=== PATIENT | female | born 1950 | race Caucasian/White ===

== ENCOUNTER → 2016-07-09 | Outpatient (CLI) | payer MEDICARE, MEDICAID ==
[~2016-07-09] MED LIST: *BLDWK8; *MAMMOGRAM; /ADVA50050; /MOXI40TA; ACET65TA; ACTONEL; ACTONEL PO; ADVAIR100 INHALATION; ALBU17IN2; ALCOHOL TOP; AMARYL2 PO; AMARYL4 PO; AMBIENCR12 PO; AMO500 PO; AMOX500C; AVANDIA4; AVANDIA8; AVELOX PO; BENI20TA11; BENICAR/HCT; CADUET PO; CALCIUM/VITAMIN D; CARDURA; CARDURA PO; CARDURA8 PO; CIPRO500 PO; COLA100C2; CORE12.5; CORE6.25; COREG125 PO; COREG25 PO; COREGCR40 PO; DIET; DIFLUC150; DIOVAN PO; DIOVAN160; DIOVAN160 PO; DIOVAN3/25 PO; DIOVAN80; DOXYCYC100; DOXYCYC100 PO; ERYTHRO500 PO; FAMVIR; FEMARA; FERR325T; GLUCOP1000 PO; HYDROD25 PO; IBUP600T; IBUP80TA PO; INSULANT; INSULIN; JANUVIA100 PO; LAB; LANCMIS; LANTUS SQ; LANTUSCART; LESCOLXL80 PO; LETROZOLE; LEVAQUI500 PO; LEVO25TABR; LIDO5DIS; LIPITOR10 PO; LIPITOR20 PO; LIPITOR40 PO; MAXAIR; MILKSUS; MONISTAT; NEEDLESFIN SQ; NEUR300C; NOVOLOG SQ; NOVOLOGPEN SQ; PROV90AE; PROVENTILI PO; PROZAC20 PO; PULMICORT; SANTYL; SINGULAI10 PO; STARLIX120; SYRIN.5CC SUBQ; SYRINS1CC SUBQ; TESSALO100 PO; TIAZAC PO; VENTOLININ INHALATION; VICO5TAB; VIT D 2000; VITA100T; VITAMIN B 12; VITAMIN D50000 UNT; ZANTAC150; ZETI10TA; ZETIA PO; ZITHROZPAK PO; ZOCO80TA; ZOCOR80 PO; [UNRECOGNIZED DRUG - CODE]; [UNRECOGNIZED DRUG - CODE] -; [UNRECOGNIZED DRUG - CODE] PO; [UNRECOGNIZED DRUG - CODE] PO; [UNRECOGNIZED DRUG - OTHER]; [UNRECOGNIZED DRUG - OTHER]; [UNRECOGNIZED DRUG - OTHER]; [UNRECOGNIZED DRUG - OTHER] -; [UNRECOGNIZED DRUG - OTHER] PO; [UNRECOGNIZED DRUG - OTHER] SC; [UNRECOGNIZED DRUG - REMARK]; [UNRECOGNIZED DRUG - REMARK]; [UNRECOGNIZED DRUG - SUPPLY] -
--- NOTE | 2016-07-09 14:39 | REP ---
WHOLE BODY RADIONUCLIDE BONE SCAN: HISTORY: History breast carcinoma and bone pain. Comparison bone scan is from February 27, 2009. TECHNIQUE: 21.9 mCi technetium 99m MDP is injected and standard whole body bone scan imaging acquired. SCINTIGRAPHIC FINDINGS: There is a normal distribution of skeletal tracer with uptake in bilateral kidneys and in the urinary bladder. There is a focus of increased uptake in the right lateral forefoot at the level of the 5th proximal phalanx or MTP joint. This should be correlated clinically. There is mildly increased uptake in the anterior maxilla bilaterally. This is unchanged and may relate to dental or periodontal disease. IMPRESSION: No evidence to suggest skeletal metastatic disease. Increased uptake in the 5th toe on the right. This is most likely related to trauma or arthropathy. Signed by Darryn Gonzalez MD 07/09/2016 02:42 P
== END ==
LOC: M RAD 10:02
PROVIDERS: ATTEND Internal Medicine Medical Oncology
DX: Z08 Encounter for follow-up examination after completed treatment for malignant neoplasm (principal); M89.9 Disorder of bone, unspecified; Z85.3 Personal history of malignant neoplasm of breast
CPT/HCPCS: 78306; A9503

== ENCOUNTER → 2016-07-22 | Outpatient (CLI) | payer MEDICARE, MEDICAID ==
[2016-07-22 10:25] LABS: ALBUMIN 3.8 GM/DL (3.2-5.2); ALBUMIN/GLOBULIN RATIO 1.09 (1.00-1.93); BILIRUBIN,TOTAL 0.8 MG/DL (0.2-1.0); CALCIUM LEVEL 8.9 MG/DL (8.8-10.2); CREATININE FOR GFR 1.03 MG/DL (0.55-1.02); GLOMERULAR FILTRATION RATE 57.1 (>45); TOTAL PROTEIN 7.3 GM/DL (6.4-8.2)
== END ==
LOC: M LAB 09:24
PROVIDERS: ATTEND Nurse Practitioner Family
DX: E11.65 Type 2 diabetes mellitus with hyperglycemia (principal); E55.9 Vitamin D deficiency, unspecified; E03.9 Hypothyroidism, unspecified; E78.5 Hyperlipidemia, unspecified

== ENCOUNTER → 2016-08-17 | Outpatient (CLI) | payer MEDICARE, MEDICAID ==
[2016-08-17 15:25] LABS: CREATININE FOR GFR 1.24 MG/DL (0.55-1.02); FREE T4 1.38 NG/DL (0.76-1.46); GLOMERULAR FILTRATION RATE 46.1 (>45)
--- NOTE | 2016-08-17 16:40 | REP ---
CERVICAL SPINE, EIGHT VIEWS: HISTORY: Neck pain. The cervical spine is visualized from C1-C7 in the lateral radiographs. There is no acute fracture or subluxation. The C4-5 intervertebral disc is decreased in height consistent with disc degeneration. The neural foramina are patent. IMPRESSION: Degenerative change as described above. Signed by Moses Leong MD 08/17/2016 04:42 P
== END ==
LOC: M LAB 14:30
PROVIDERS: ATTEND Nurse Practitioner Family
DX: E89.0 Postprocedural hypothyroidism (principal); M50.30 Other cervical disc degeneration, unspecified cervical region; E11.65 Type 2 diabetes mellitus with hyperglycemia

== ENCOUNTER 2016-09-20 14:57 | Inpatient (IN) | payer MEDICARE, MEDICAID ==
[~2016-09-20] VITALS: Ht 162.6 cm; Wt 81.1 kg
[2016-09-20] MEDS ORDERED: JARD1TAB3 (15:34)
[2016-09-20] MEDS ORDERED: TOUJ1.2I (15:34)
[2016-09-20] MEDS ORDERED: LEVO200T4 (15:34)
[2016-09-20] MEDS ORDERED: CRES40TA (15:34)
[2016-09-20] MEDS ORDERED: SM 88TAB (15:34)
[2016-09-20] MEDS ORDERED: VITA50003 (15:34)
[2016-09-20] MEDS ORDERED: CARV12.5 (15:34)
[2016-09-20] MEDS ORDERED: CHLO125TA (15:34)
[2016-09-20] MEDS: NS 1,000 ML IV SCH ×3 (15:35→22:18)
--- NOTE | 2016-09-20 16:45 | REP ---
PA and lateral chest: Comparison is 12/29/2015. The lung joshi are clear. Cardiac size is normal. The sheree, mediastinum, and bony thorax are unremarkable. The soft tissues surgical clips at the neck are obscured by the chin. There is surgical clips in the left axilla. These are unchanged. Impression: There are no acute cardiopulmonary findings. Signed by Mayco Nova MD 09/20/2016 04:36 P
[2016-09-20] MEDS ORDERED: HumuLIN R (REGULAR) INSULIN (NovoLIN R) **100U/ML** PER UNIT IV STA (18:03)
[2016-09-20] MEDS ORDERED: TOUJ1.2I SC ×2 (20:17)
[2016-09-20] MEDS ORDERED: JARD1TAB3 PO (20:17)
[2016-09-20] MEDS ORDERED: CRES40TA PO (20:17)
[2016-09-20] MEDS ORDERED: CHLO25TA PO (20:17)
[2016-09-20] MEDS ORDERED: DRIS50002 PO (20:17)
[2016-09-20] MEDS ORDERED: ACET650T2 PO (20:17)
[2016-09-20] MEDS ORDERED: LISI-538 PO (20:17)
[2016-09-20] MEDS ORDERED: FOSA70TA PO (20:18)
[2016-09-20] MEDS ORDERED: FERR325T PO (20:20)
[2016-09-20] MEDS ORDERED: ASPI1TAB PO (20:20)
[2016-09-20] MEDS ORDERED: INSUHUMDS SC (20:20)
[2016-09-20] MEDS ORDERED: GABA-282 PO (20:20)
[2016-09-20] MEDS ORDERED: CALCTAB68 PO (20:20)
[2016-09-20] MEDS ORDERED: PATIENT COMMENT (20:20)
[2016-09-20] MEDS ORDERED: GLUCOSE 4 GM CHEW TABLET PO PRN (20:30)
[2016-09-20] MEDS ORDERED: DEXTROSE 50% 50 ML SYRINGE IV PRN (20:30)
[2016-09-20] MEDS ORDERED: GLUCAGON FOR INJ 1 MG VIAL (J1610) SC PRN (20:30)
[2016-09-20] MEDS ORDERED: ALBUTEROL SULFATE 2.5 MG/0.5 ML INH NEB SOLN NEB PRN (21:00)
[2016-09-20] MEDS ORDERED: SYNT150T PO (21:01)
[2016-09-20 21:05] VITALS: BP 182/79
[2016-09-20] MEDS: FERROUS SULFATE 325MG TAB PO SCH (21:32)
[2016-09-20] MEDS: GABAPENTIN 300 MG CAP PO SCH (21:32)
[2016-09-20] MEDS: PERCOCET 5MG/325MG TAB PO PRN (21:32)
[2016-09-20] MEDS: HumaLOG INSULIN (NovoLOG) PER UNIT SC SCH (21:32)
[2016-09-20] MEDS: LEVEMIR (INSULIN DETEMIR) 1 UNITS/0.01ML SC SCH (21:33)
--- NOTE | 2016-09-20 21:56 | ECGEPIP ---
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
[2016-09-20] MEDS ORDERED: HEPARIN SOD (PORCINE) 5000 UNITS/ML VIAL SC SCH (22:00)
[2016-09-20] MEDS: CIPROFLOXACIN 400 MG in APPROPRIATE DILUENT 1 EA IV SCH (22:17)
[2016-09-21 06:00] VITALS: BP 114/59
[2016-09-21] MEDS: PERCOCET 5MG/325MG TAB PO PRN ×2 (07:37→12:26)
--- NOTE | 2016-09-21 08:29 | REP ---
Bilateral hips: There are no comparisons. Left hip two views: Mineralization and joint space are normal. There is no fracture or dislocation. No calcifications or foreign bodies. Impression: Negative left hip. The right hip two views: Mineralization and joint space are normal. There is no fracture or dislocation. There are no calcifications or foreign bodies. Impression: Negative right hip. Signed by Mayco Nova MD 09/21/2016 08:20 A
[2016-09-21] MEDS: HumaLOG INSULIN (NovoLOG) PER UNIT SC SCH ×4 (08:54→21:28)
[2016-09-21] MEDS: ASPIRIN 81 MG ENTERIC TAB PO SCH (08:55)
[2016-09-21] MEDS: ROSUVASTATIN 10 MG TAB (CRESTOR) PO SCH (08:55)
[2016-09-21] MEDS: GABAPENTIN 300 MG CAP PO SCH ×3 (08:55→21:35)
[2016-09-21] MEDS: CHLORTHALIDONE 25 MG TAB PO SCH (08:55)
[2016-09-21] MEDS: FERROUS SULFATE 325MG TAB PO SCH ×2 (08:55→21:35)
[2016-09-21] MEDS: NS 1,000 ML IV SCH ×3 (08:55→16:54)
[2016-09-21] MEDS: LEVEMIR (INSULIN DETEMIR) 1 UNITS/0.01ML SC SCH ×2 (08:56→21:35)
[2016-09-21] MEDS: ENOXAPARIN 40 MG/0.4 ML SYRINGE (J1650) SC SCH (08:56)
[2016-09-21] MEDS: CIPROFLOXACIN 400 MG in APPROPRIATE DILUENT 1 EA IV SCH ×2 (09:00→21:36)
--- NOTE | 2016-09-21 10:33 | REP ---
MRI BRAIN WITHOUT CONTRAST: HISTORY: Right side weakness. Areas of increased signal intensity on T2-weighted are present in the periventricular and subcortical white matter and choco. This represents small vessel ischemic disease. There is no intraparenchymal hemorrhage, infarct, mass or midline shift. The sella turcica is partially empty. The ventricular system is normal in appearance. The cortical sulci are dilated consistent with minimal volume loss. There is no extracerebral collection. IMPRESSION: 1. Small vessel ischemic disease. 2. Minimal volume loss. Signed by Moses Leong MD 09/21/2016 10:38 A
--- NOTE | 2016-09-21 10:48 | REP ---
MR LUMBAR SPINE WITHOUT CONTRAST: HISTORY: Right hip pain. COMPARISON: 09/01/2009 Decreased signal intensity on T2-weighted images is present in the L2-3 through L5-S1 intervertebral discs. The discs are decreased in height. These findings are consistent with disc degeneration. There is no disc bulge or herniation at the L1-2 level. The L1 nerves exit the neural foramina without compression. A diffuse disc bulge is present at the L2-3 level. There is minimal compression of the thecal sac. There is hypertrophy of the posterior articulating facets. The L2 nerves exit the neural foramina without compression. A diffuse disc bulge is present at the L3-4 level. There is minimal compression of the thecal sac. There is hypertrophy of the posterior articulating facets. The L3 nerves exit the neural foramina without compression. A diffuse disc bulge and small central disc protrusion are present at the L4-5 level. There is minimal compression of the thecal sac. There is hypertrophy of the posterior articulating facets. The L4 nerves exit the neural foramina without compression. A diffuse disc bulge is present at the L5-S1 level. This abuts the S1 nerves. There is no thecal sac compression. There is hypertrophy of the posterior articulating facets. There is compression of the right L5 nerve in the neural foramen. The left L5 nerve exits the neural foramen without compression. The conus medullaris is normal in appearance terminating at the level of the T12-L1 intervertebral disc. A hemangioma is present in the L3 vertebral body. Normal signal intensity is present in the remaining lumbar vertebral bodies. IMPRESSION: 1. Diffuse disc bulges at the L2-3 and L3-4 levels with minimal thecal sac compression. 2. Diffuse disc bulge and small central disc protrusion at the L4-5 level with minimal thecal sac compression. The disc protrusion is a new finding . 3. Diffuse disc bulge at the L5-S1 level. This abuts the S1 nerves. There is compression of the right L5 nerve in the neural foramen. The right L5 nerve compression is a new finding. Signed by Moses Leong MD 09/21/2016 10:52 A
--- NOTE | 2016-09-21 11:36 | IPNPDOC ---
Subjective Date Seen The patient was seen on 09/21/16. Subjective Chief Complaint/HPI The patient is a 66-year-old female admitted with a reason for visit of [place]; Weakness. General: Denies: Chills, Fatigue, Malaise, Night Sweats, Normal Appetite, Other Symptoms, ROS Unobtainable Constitutional: Denies: Chills, Fatigue, Fever, Lethargy, Malaise, Night Sweats , Other, Weakness, Weight Loss Eyes: Denies: Conjunctivae inflammation, Eyelid inflammation, Other, Pain, Redness, Vision change ENT: Denies: Dysphagia, Ear Pain, Epistaxis, Head Aches, Other Symptoms, Post Nasal Drip, Sinus Congestion, Sore Throat Skin: Denies: Breakdown, Bruising, Dry, Itching, Jaundice, Lesions, Nail Changes, Other, Rash Pulmonary: Denies: Cough, Dyspnea, Other Symptoms, Pleuritic Chest Pain Cardiovascular: Denies: Chest Pain, Edema, Lt Headedness, Orthopnea, Other Symptoms, Palpitations, Paroxysmal Noc. Dyspnea Gastrointestinal: Reports: Constipation, Denies: Abdominal Pain, Diarrhea, Hematochezia, Melena, Nausea, Other Symptoms, Vomiting Genitourinary: Reports: Incontinence, Retention, Denies: Dysuria, Frequency, Hematuria, Other Symptoms Hematologic: Denies: Bleeding Excessively, Bruising, Enlarged Lymph Nodes, Other Hematologic, Petecchia, Purpura Endocrine: Denies: Cold Intolerance, Heat Intolerance, Other Endocrine Sx, Polydipsia, Polyphagia, Polyuria Musculoskeletal: Reports: Arm Pain, Back Pain, Joint Pain, Leg Pain, Neck Pain , Shoulder Pain Neurological: Reports: Weakness Objective Physical Examination General Exam: Positive: Alert, Cooperative, No Acute Distress Eye Exam: Positive: Conjunctiva & lids normal, EOMI, PERRLA, Negative: Sclera icteric ENT Exam: Positive: Atraumatic, Mucous membr. moist/pink Neck Exam: Positive: Supple Chest Exam: Positive: Clear to auscultation, Normal air movement Heart Exam: Positive: Rate Normal, Regular Rhythm Abdomen Exam: Positive: Normal bowel sounds, Soft, Tenderness Neuro Exam: Positive: Strength at 5/5 X4 ext Psych Exam: Negative: Oriented x 3 (oriented to person and place) Assessment /Plan Problems (1) Weakness Status: Acute Discussed With: Patient Problem Specific Plan: Monitor Clinically, Repeat Tests Problem Text: MRI brain, L spine pending. Rheum workup pending. (2) Acute kidney injury Status: Acute Response to Treatment: Improving Discussed With: Patient Problem Specific Plan: Monitor Clinically, Repeat Labs Problem Text: IV fluids, abx for uti. continue to follow. (3) UTI (urinary tract infection) Status: Acute Discussed With: Patient Problem Specific Plan: Monitor Clinically, Repeat Labs Problem Text: Cultures pending. Continue with Cipro. (4) Diabetes Status: Chronic Discussed With: Patient Problem Specific Plan: Repeat Labs Problem Text: Uncontrolled. Continue with modified diet and insulin regimen. (5) Anemia Status: Chronic Discussed With: Patient Problem Text: Appears to be secondary to iron deficiency anemia, receiving oral iron supplementation as per home medications. (6) Dyslipidemia Status: Chronic Problem Text: Continue Crestor. Plan/VTE VTE Prophylaxis Ordered?: Yes (Lovenox) Plan Diet: Continue Current Therapy: PT, OT Medications: Start Antibiotics Diagnostics: Repeat Labs in AM, Obtain Cultures, MRI Anticipated Discharge: Home, Home With Services IV abx for UTI pending cultures, pending MRI brain/L spine. IV fluids, follow renal function. PT/OT. H&P still pending for further information. VS, I&O, 24H, Fishbone Vital Signs/I&O Vital Signs Date Time Temp Pulse Resp B/P Pulse Ox O2 Delivery O2 Flow Rate FiO2 09/21/16 08:07 18 Room Air 09/21/16 06:00 97.5 88 114/59 93 I&O- Last 24 Hours up to 6 AM 09/21/16 06:00 Intake Total 0 ml Output Total 550 ml Balance -550 ml Laboratory Data 24H LABS Laboratory Tests 2 09/20/16 15:38: Aspartate Amino Transf (AST/SGOT) 7L, Alanine Aminotransferase (ALT/SGPT) 12, Alkaline Phosphatase 90, Total Bilirubin 1.1H, Direct Bilirubin 0.3H, Albumin 3.7, Albumin/Globulin Ratio 1.00, Anion Gap 9, White Blood Count 10.0, Red Blood Count 4.05, Hemoglobin 10.9L, Hematocrit 32.4L, Mean Corpuscular Volume 79.9L, Mean Corpuscular Hemoglobin 26.9L, Mean Corpuscular Hemoglobin Concent 33.7, Red Cell Distribution Width 13.2, Platelet Count 212, Neutrophils (%) ( Auto) 79.0H, Lymphocytes (%) (Auto) 11.8L, Monocytes (%) (Auto) 5.5H, Eosinophils (%) (Auto) 1.8, Basophils (%) (Auto) 0.4, Neutrophils # (Auto) 7.9H , Lymphocytes # (Auto) 1.3L, Monocytes # (Auto) 0.6, Eosinophils # (Auto) 0.2, Basophils # (Auto) 0.0, C-Reactive Protein, Quantitative 7.81H, Calcium Level 9.8, Creatine Kinase MB 1.0, Creatine Kinase MB Relative Index 3.44, Erythrocyte Sedimentation Rate 99H, Estimated Mean Plasma Glucose 344H, Free Thyroxine 1.59H, Glomerular Filtration Rate 37.3L, Hemoglobin A1c 13.6H, Large Unclassified Cells # 0.1, Large Unclassified Cells % 1.4, Magnesium Level 1.8, Phosphorus Level 3.5, Thyroid Stimulating Hormone (TSH) 0.855, Total Creatine Kinase 29, Total Protein 7.4, Troponin I < 0.02 09/20/16 19:10: Bedside Glucose (Misc Panel) 441H 09/20/16 20:06: Urine Amorphous Sediment , Urine Appearance HAZY, Urine Color YELLOW, Urine pH 5.0, Urine Specific [place] 1.021, Urine Protein NEGATIVE, Urine Glucose (UA) 3+ H, Urine Ketones NEGATIVE, Urine Urobilinogen 0.2, Urine Bilirubin NEGATIVE, Urine Leukocyte Esterase 2+H, Urine Bacteria (Auto) 1+H, Urine Blood NEGATIVE, Urine Calcium Carbonate Cryst(Auto) , Urine Calcium Oxalate Cryst (Auto) , Urine Calcium Phosphate Freda (Auto) , Urine Cellular Casts , Urine Cystine Crystals , Urine Granular Casts (Auto) , Urine Hyaline Casts (Auto) 0, Urine Leucine Crystals , Urine Mucus (Auto) SMALL, Urine Nitrite POSITIVE, Urine Oval Fat Bodies (Auto) , Urine RBC (Auto) 3, Urine Renal Epithelial Cells , Urine Sperm (Auto) , Urine Squamous Epithelial Cells 4, Urine Transitional Epithelial Cells , Urine Trichomonas (Auto) , Urine Triple Phosphate Cryst (Auto) , Urine Tyrosine Crystals , Urine Uric Acid Crystals (Auto) , Urine WBC (Auto) 32H, Urine Waxy Casts (Auto) , Urine Yeast-Like Cells (Auto) 09/20/16 21:21: Bedside Glucose (Misc Panel) 394H 09/21/16 06:06: Anion Gap 8, Blood Urea Nitrogen 36H, Creatinine 1.24H, Sodium Level 137, Potassium Level 4.2, Chloride Level 103, Carbon Dioxide Level 26, Calcium Level 9.3, Ferritin 265H, Folate 17.3, Glomerular Filtration Rate 46.1, Iron Level 33L , Total Iron Binding Capacity 243L, Transferrin % Saturation 13.6, Vitamin B12 Level 421 CBC/BMP Laboratory Tests 09/20/16 15:38 Red Blood Count 4.05, Mean Corpuscular Volume 79.9 L, Mean Corpuscular Hemoglobin 26.9 L, Mean Corpuscular Hemoglobin Concent 33.7, Red Cell Distribution Width 13.2, Neutrophils (%) (Auto) 79.0 H, Lymphocytes (%) (Auto) 11.8 L, Monocytes (%) (Auto) 5.5 H, Eosinophils (%) (Auto) 1.8, Basophils (%) ( Auto) 0.4, Neutrophils # (Auto) 7.9 H, Lymphocytes # (Auto) 1.3 L, Monocytes # ( Auto) 0.6, Eosinophils # (Auto) 0.2, Basophils # (Auto) 0.0 09/21/16 06:06 Red Blood Count 3.86 L, Mean Corpuscular Volume 80.0, Mean Corpuscular Hemoglobin 27.0, Mean Corpuscular Hemoglobin Concent 33.7, Red Cell Distribution Width 13.1, Calcium Level 9.3 Microbiology Microbiology 09/21/16 Blood Culture, Received Pending 09/20/16 Blood Culture, Received Pending 09/20/16 Urine Culture, Received Pending FLORIN GARAY MD Sep 21, 2016 11:36
[2016-09-21 14:00] VITALS: BP 136/72
[2016-09-21] MEDS ORDERED: ONDANSETRON 4MG/2ML VIAL (J2405) IV PRN (14:45)
--- NOTE | 2016-09-21 15:38 | REP ---
In [place] CT abdomen and pelvis without IV or bowel contrast: Comparison is 10/26/2015. The the patient has a wide 6.0 cm midline ventral peritoneal defect posterior to the umbilicus with herniation of omental fat through the defect as previously. On the current study. A small bowel loop is also contained within the hernia. There is no evidence of bowel distension or obstruction. There is no evidence of bowel strangulation. There is a mass versus infiltrate in the visualized lower lobe of the left lung, not present previously, measuring 3.4 cm in diameter extending into the left infrahilar zone. This was not present on the comparison CT. This density is not visible on the recent PA and lateral plain film studies of the chest dated 09/20/2016. The inferior margin of the mass extends to the dome of the left hemidiaphragm. The unenhanced hepatic parenchyma is homogeneous. Tiny calcified granuloma is noted in the dome of the liver. There are surgical clips in the gallbladder fossa. This is unchanged. The pancreas and spleen are normal size and unremarkable. The adrenals are unremarkable. There are no renal calculi are hydronephrosis. The kidneys are otherwise unremarkable for patient age and unchanged. In the absence of IV contrast the study is insensitive for renal masses. The abdominal aorta is unremarkable. There is no retroperitoneal adenopathy. There is no bowel distension or obstruction. Pelvis: There is a 2 cm fat containing pericolonic appendage along the right lateral margin of the distal sigmoid colon on image 122 - 123. There is no evidence of inflammation. This is unchanged. There is no CT evidence of diverticulosis or diverticulitis. There is no ascites. The uterus and adnexa are unremarkable. The urinary bladder is unremarkable. Impression: There is a mass versus infiltrate in the left lower lobe measuring 3.4 cm, not present on the comparison CT. This mass was not visible on the recent plain film PA and lateral views of the chest dated 09/20 2016. The inferior margin of the mass extends to the dome of the left hemidiaphragm. Broad-based ventral hernia containing omental fat and a loop of small bowel posterior to the umbilicus. There is no bowel distension or obstruction. There is a 2 cm fat containing pericolonic appendage adjacent to the distal sigmoid colon as described without evidence of inflammation, unchanged. Otherwise, negative CT study of the abdomen and pelvis. Signed by Mayco Nova MD 09/21/2016 03:29 P
--- NOTE | 2016-09-21 19:16 | HPE ---
DATE OF ADMISSION: 09/20/2016 CHIEF COMPLAINT: Generalized weakness and right-sided joint and muscle pain. PRIMARY C[facility] PROVID[facility]. HISTORY OF PRESENT ILLNESS: This patient is a 66-year-old female with medical history significant for diabetes, hypothyroidism, hypertension, anemia, asthma, breast cancer status post mastectomy and chemotherapy, multiple skin lesions, presented to [facility] on 09/20/2016, for worsening generalized weakness and significant joint and muscle pain. Patient stated that approximately 3 years ago patient had worsening of the pain at the lower back and the right hip, the right knee, and the right shoulder. The pain is aching and happens to occur suddenly when patient is doing her activities of daily living. The pain becomes persistent and patient also noted to have dizziness and vomiting. Patient started having shivering cold in the past 2 days and patient noticed having increased urgency and urinary incontinence and she cannot walk to the bathroom on time and she wet herself and she felt very embarrassed. Patient also noted to have leg tingling and numbness for almost 1 month. Denies any associated symptoms. ALLERGIES: PENICILLIN (swelling). PAST MEDICAL HISTORY: 1. Asthma. 2. Diabetes. 3. Hypertension. 4. Hypothyroidism. 5. Multiple skin lesions status post biopsy. 6. Compound melanocytic nevi with mild cytologic atypia. 7. Infiltrating ductal carcinoma of the left breast status post mastectomy and chemotherapy, diagnosed 5-6 years ago. PAST SURGICAL HISTORY: Gallbladder removal, incarcerated incisional hernia in December 2015. HOME MEDICATIONS: - Tylenol 650 mg by mouth twice a day - Fosamax 700 mg by mouth weekly - aspirin 81 mg by mouth daily - calcium/vitamin D one tablet by mouth daily - chlorthalidone 25 mg by mouth daily - Jardiance 25 mg by mouth daily - ferrous sulfate 325 mg by mouth twice a day - gabapentin 300 mg by mouth three times a day - Humalog 10 units subcutaneous with meals - lisinopril 20 mg by mouth twice a day - Crestor 40 mg by mouth daily - Toujeo 80 units subcutaneous every morning - Toujeo 30 units subcutaneous every evening - vitamin D 50 units by mouth weekly on Sundays SOCIAL HISTORY: Patient used to smoke before, quit approximately 7 years ago. Denies any alcohol use. Denies any recreational drug use. Patient is FULL CODE. REVIEW OF SYSTEMS: GENERAL: Generalized malaise, weakness, and shivering chills for the past 2 days. HEENT: Has baseline poor vision. No vision change, no auditory change. CARDIOVASCULAR: Positive dizziness. No chest pain. No palpitations. RESPIRATORY: No shortness of breath. No cough. No sputum production. GASTROINTESTINAL (GI): Patient has vomiting and also has nausea. No abdominal pain. No diarrhea. GENITOURINARY (): Complaining about increased urgency and urinary incontinence. MUSCULOSKELETAL: Worsening right hip, right knee, right lower back, and right shoulder and neck pain. NEUROLOGICAL: Left leg tingling and numbness for the last month. OBJECTIVE: VITAL SIGNS: Temperature 97.8, pulse 94, respirations 16, blood pressure 148/96, pulse oximetry 99% in room air. GENERAL: Fatigued. Mild distress from the muscle and joint pain. Patient is alert and awake and oriented, is able to answer questions and follow commands. HEENT: There is point tenderness in the suboccipital region towards the right side. Otherwise, normocephalic, atraumatic. Extraocular motors grossly intact. CARDIOVASCULAR: Positive systolic murmur. Positive S1, S2, regular rate. LUNGS: Diminished breath sounds, but clear to auscultation bilaterally. No wheezes or rhonchi. ABDOMEN: Morbidly obese. No tenderness to palpation. Bowel sounds present. MUSCULOSKELETAL: There is point tenderness of the right lumbar region lateral to the vertebral spine and with direct pressure can trigger the pain radiating to the abdomen and the right lower thigh. Unable to reproduce tenderness at the right hip, the right knee, or the right thigh muscles. NEUROLOGICAL: Patient has decreased sensation of the right lower extremity below the knee, even though patient stated she has left leg tingling and numbness per history. Unable to fully test lower extremity muscle strength due to the significant pain, but the muscle strength is at least 3-4 over 5. Sensation near the groin and the posterior thigh near the inguinal area are intact. LABORATORY DATA: WBC 10, hemoglobin 10.9, hematocrit 32.4, platelet count 212. Sodium 132, potassium 4.2, chloride 95, carbon dioxide 25, BUN 45, creatinine 1.49, GFR 37.3, fasting glucose 544, calcium 9.8, phosphorous 3.5, magnesium 1.8, total bilirubin 1.1, direct bilirubin 0.3, AST 7, ALT 12, alkaline phosphatase 90, total CK 29, troponin I is less than 0.02, C-reactive protein pending, total protein 7.4, albumin 3.7, TSH is 0.855, free T4 is 1.59. Urinalysis is positive for nitrites, 2+ leukocyte esterase, 32 WBCs, 1+ bacteria. IMAGING STUDIES: Chest x-ray showed no acute cardiopulmonary findings. ASSESSMENT: 1. Generalized malaise. 2. Urinary tract infection (UTI). 3. Multiple joint and muscle pains. 4. Diabetes. 5. Hypothyroidism. 6. Asthma. 7. Acute renal failure. 8. Hyperlipidemia. 9. History of chronic anemia. PLAN: Patient will be admitted on medical/surgical floor under inpatient status. Patient had positive urinalysis. Urine culture is pending. According to the past record, patient had a urinary tract infection (UTI) from Escherichia (E) coli and Enterococcus faecalis. Will tailor antibiotic regimen. For now, patient will be on empiric antibiotic Cipro. Patient has multiple joint and muscle pain, especially the right lower back and right neck pain is reproducible, suggests musculoskeletal origin. However, patient does complain about right lower extremity weakness due to neuropathy. The differential also includes vertebral spine involvement. We will followup with MRI of the brain and MRI of the lumbar spine. Patient will continue on the long-acting insulin coverage with sliding scale and consistent carbohydrate diet for her diabetes and will follow with an A1c in the morning. Patient does have a history of chronic anemia, currently hemoglobin and hematocrit are at the baseline and patient is taking iron supplement, will followup with iron studies and B12 and folate study. Hypothyroidism. Patient is on Synthroid. Will adjust the dose accordingly. Hyperlipidemia. Patient is on statin. Acute on chronic kidney injury, possibly due to the prerenal azotemia. Patient will be on IV support. Patient did have antinuclear antibody (TOMASA) serology test positive in 2014 and 2016. However, we do not have her record for the investigation. Will followup with primary care provider (PCP) record to find out patient's current medical history. Patient does have a history of breast cancer diagnosed 5-6 years ago status post chemotherapy and mastectomy. Will continue to follow. Deep venous thrombosis (DVT) prophylaxis. Patient is on heparin.
[2016-09-21 22:00] VITALS: BP 124/95
[2016-09-22] MEDS: DOCUSATE SODIUM 100 MG CAP PO PRN (04:28)
[2016-09-22 06:00] VITALS: BP 128/62
[2016-09-22] MEDS: NS 1,000 ML IV SCH ×2 (06:43→21:24)
[2016-09-22] MEDS ORDERED: ISOVUE-370 76% 100ML VIAL (Q9967) As Ordered ONE (08:10)
[2016-09-22] MEDS: LEVEMIR (INSULIN DETEMIR) 1 UNITS/0.01ML SC SCH ×2 (09:00→21:24)
[2016-09-22] MEDS ORDERED: PREVNAR 13 VACCINE SYRINGE (CPT CODE:90670) IM ONE (09:00)
[2016-09-22] MEDS: HumaLOG INSULIN (NovoLOG) PER UNIT SC SCH ×4 (09:03→21:24)
[2016-09-22] MEDS: ROSUVASTATIN 10 MG TAB (CRESTOR) PO SCH (09:04)
[2016-09-22] MEDS: CHLORTHALIDONE 25 MG TAB PO SCH (09:04)
[2016-09-22] MEDS: ASPIRIN 81 MG ENTERIC TAB PO SCH (09:04)
[2016-09-22] MEDS: ENOXAPARIN 40 MG/0.4 ML SYRINGE (J1650) SC SCH (09:04)
[2016-09-22] MEDS: GABAPENTIN 300 MG CAP PO SCH ×3 (09:04→21:23)
[2016-09-22] MEDS: FERROUS SULFATE 325MG TAB PO SCH ×2 (09:04→21:24)
--- NOTE | 2016-09-22 10:14 | IPNPDOC ---
Subjective Date Seen The patient was seen on 09/22/16. Subjective Chief Complaint/HPI The patient is a 66-year-old female admitted with a reason for visit of [place]; Weakness. General: Denies: Chills, Fatigue, Malaise, Night Sweats, Normal Appetite, Other Symptoms, ROS Unobtainable Constitutional: Denies: Chills, Fatigue, Fever, Lethargy, Malaise, Night Sweats , Other, Weakness, Weight Loss Eyes: Denies: Conjunctivae inflammation, Eyelid inflammation, Other, Pain, Redness, Vision change ENT: Denies: Dysphagia, Ear Pain, Epistaxis, Head Aches, Other Symptoms, Post Nasal Drip, Sinus Congestion, Sore Throat Skin: Denies: Breakdown, Bruising, Dry, Itching, Jaundice, Lesions, Nail Changes, Other, Rash Pulmonary: Denies: Cough, Dyspnea, Other Symptoms, Pleuritic Chest Pain Cardiovascular: Denies: Chest Pain, Edema, Lt Headedness, Orthopnea, Other Symptoms, Palpitations, Paroxysmal Noc. Dyspnea Gastrointestinal: Reports: Abdominal Pain, Denies: Constipation, Diarrhea, Hematochezia, Melena, Nausea, Other Symptoms , Vomiting Genitourinary: Reports: Retention, Denies: Dysuria, Frequency, Hematuria, Incontinence, Other Symptoms Hematologic: Denies: Bleeding Excessively, Bruising, Enlarged Lymph Nodes, Other Hematologic, Petecchia, Purpura Endocrine: Denies: Cold Intolerance, Heat Intolerance, Other Endocrine Sx, Polydipsia, Polyphagia, Polyuria Musculoskeletal: Reports: Arm Pain, Back Pain, Leg Pain, Neck Pain, Denies: Foot Pain, Hand Pain, Joint Pain, Muscle Pain, Other Symptoms, Shoulder Pain, Spasms Neurological: Reports: Numbness, Weakness Objective Physical Examination General Exam: Positive: Alert, Cooperative, No Acute Distress Eye Exam: Positive: Conjunctiva & lids normal, EOMI, PERRLA, Negative: Sclera icteric ENT Exam: Positive: Atraumatic, Mucous membr. moist/pink Neck Exam: Positive: Supple Chest Exam: Positive: Clear to auscultation, Normal air movement Heart Exam: Positive: Rate Normal, Regular Rhythm Abdomen Exam: Positive: Normal bowel sounds, Soft, Tenderness (improved from yesterday) Neuro Exam: Negative: Strength at 5/5 X4 ext Psych Exam: Negative: Oriented x 3 (oriented to person and place) Assessment /Plan Problems (1) Weakness Status: Chronic Discussed With: Patient Problem Specific Plan: Consult Specialist, Monitor Clinically, Repeat Tests Problem Text: MRI brain unremarkable MRI L spine pending reveals diffuse disc bulging, new right L5 compression Ortho consultation pending. Rheum workup pending. (2) Urinary retention Status: Resolved Discussed With: Patient Problem Specific Plan: Consult Specialist, Monitor Clinically Problem Text: Patient required straight cath last night. She states this has happened before several years ago, with no clear diagnosis as per patient. Possibly related to her lumbar nerve compression. Ortho consultation pending for further input, assistance greatly appreciated. (3) Acute kidney injury Status: Resolved Response to Treatment: Improving Discussed With: Patient Problem Specific Plan: Monitor Clinically, Repeat Labs Problem Text: Improving. IV fluids, UCx + Klebsiella - sensitive to FLQ - continue cipro (4) UTI (urinary tract infection) Status: Acute Discussed With: Patient Problem Specific Plan: Monitor Clinically, Repeat Labs Problem Text: Cultures revealed Klebsiella. Continue with Cipro. (5) Diabetes Status: Chronic Discussed With: Patient Problem Specific Plan: Repeat Labs Problem Text: Uncontrolled. Continue with modified diet and insulin regimen. (6) Anemia Status: Chronic Discussed With: Patient Problem Text: Appears to be secondary to iron deficiency anemia, receiving oral iron supplementation as per home medications. (7) Dyslipidemia Status: Chronic Problem Text: Continue Crestor. Plan/VTE VTE Prophylaxis Ordered?: Yes (Lovenox) Plan/Urinary Catheter Urinary Catheter: Straight Cath Plan Diet: Continue Current Therapy: PT, OT Medications: Start Antibiotics Diagnostics: Repeat Labs in AM, Obtain Cultures, MRI Anticipated Discharge: Home, Home With Services VS, I&O, 24H, [facility] Vital Signs/I&O Vital Signs Date Time Temp Pulse Resp B/P Pulse Ox O2 Delivery O2 Flow Rate FiO2 09/22/16 06:00 98.4 74 16 128/62 96 Room Air I&O- Last 24 Hours up to 6 AM 09/22/16 06:00 Intake Total 3620 ml Output Total 2200 ml Balance 1420 ml Laboratory Data 24H LABS Laboratory Tests 2 09/21/16 11:35: Bedside Glucose (Misc Panel) 275H 09/21/16 16:41: Bedside Glucose (Misc Panel) 211H 09/21/16 21:09: Bedside Glucose (Misc Panel) 207H 09/22/16 06:36: Anion Gap 7L, Blood Urea Nitrogen 30H, Creatinine 1.10H, Sodium Level 140, Potassium Level 3.5, Chloride Level 106, Carbon Dioxide Level 27, Calcium Level 9.3, Glomerular Filtration Rate 52.9 CBC/BMP Laboratory Tests 09/22/16 06:36 Calcium Level 9.3, Red Blood Count 3.49 L, Mean Corpuscular Volume 79.2 L, Mean Corpuscular Hemoglobin 26.7 L, Mean Corpuscular Hemoglobin Concent 33.8, Red Cell Distribution Width 13.1 Microbiology Microbiology 09/21/16 Blood Culture - Preliminary, Resulted No growth after 24 hours . All specim... 09/20/16 Blood Culture - Preliminary, Resulted No growth after 24 hours . All specim... 09/20/16 Urine Culture - Final, Complete Klebsiella Pneumoniae FLORIN GARAY MD Sep 22, 2016 10:14
[2016-09-22] MEDS: CIPROFLOXACIN 400 MG in APPROPRIATE DILUENT 1 EA IV SCH (10:38)
--- NOTE | 2016-09-22 11:47 | REP ---
CT CHEST WITH IV CONTRAST: TECHNIQUE: Axial contrast enhanced images from the thoracic inlet to the upper abdomen using 100 mL Isovue 370 intravenous contrast material with multiplanar reformations. Ill defined opacity in the left lower lobe is again seen which does not appear significantly enhanced. Findings are most consistent with pneumonic infiltrate. There is a very small left pleural effusion. There are mild dependent atelectatic changes in the right lung base. A small nodular opacity in the right lower lobe on image 46 measures 4 mm in diameter. Recommend followup CT of the chest in 6 months. Multiple subcentimeter mediastinal and hilar lymph nodes are likely reactive in nature without significant adenopathy. The heart is normal in size. There is no pericardial effusion. There is no evidence of thoracic aortic aneurysm with mild scattered atherosclerotic calcifications. In the visualized portions of the upper abdomen, metallic clips are seen in the gallbladder fossa status post cholecystectomy. 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 IMPRESSION: Ill-defined parenchymal opacity in the left lower lobe as seen on CT of the abdomen 09/21/2016 is most consistent with an area of pneumonic infiltrate. Recommend short term followup to resolution. 4 mm nodular opacity in the right lower lobe is present and 6-month followup CT of the chest is recommended. Signed by Mayco Rodriguez MD 09/22/2016 12:16 P
[2016-09-22 14:00] VITALS: BP 149/67
[2016-09-22] MEDS: CIPROFLOXACIN 500 MG TAB PO SCH (17:37)
[2016-09-22 22:00] VITALS: BP 121/65
[2016-09-23] MEDS: DOCUSATE SODIUM 100 MG CAP PO PRN (05:40)
[2016-09-23] MEDS: CIPROFLOXACIN 500 MG TAB PO SCH (05:40)
[2016-09-23 06:00] VITALS: BP 115/64
[2016-09-23] MEDS: LEVEMIR (INSULIN DETEMIR) 1 UNITS/0.01ML SC SCH ×3 (09:00→20:52)
[2016-09-23] MEDS: ENOXAPARIN 40 MG/0.4 ML SYRINGE (J1650) SC SCH (09:47)
[2016-09-23] MEDS: HumaLOG INSULIN (NovoLOG) PER UNIT SC SCH ×4 (09:47→20:52)
[2016-09-23] MEDS: GABAPENTIN 300 MG CAP PO SCH ×3 (09:48→20:51)
[2016-09-23] MEDS: ROSUVASTATIN 10 MG TAB (CRESTOR) PO SCH (09:48)
[2016-09-23] MEDS: ASPIRIN 81 MG ENTERIC TAB PO SCH (09:48)
[2016-09-23] MEDS: CHLORTHALIDONE 25 MG TAB PO SCH (09:48)
[2016-09-23] MEDS: FERROUS SULFATE 325MG TAB PO SCH ×2 (09:48→20:51)
--- NOTE | 2016-09-23 10:16 | IPNPDOC ---
Subjective Date Seen The patient was seen on 09/23/16. Subjective Chief Complaint/HPI The patient is a 66-year-old female admitted with a reason for visit of [place]; Weakness. General: Denies: Chills, Fatigue, Malaise, Night Sweats, Normal Appetite, Other Symptoms, ROS Unobtainable Constitutional: Denies: Chills, Fatigue, Fever, Lethargy, Malaise, Night Sweats , Other, Weakness, Weight Loss Eyes: Denies: Conjunctivae inflammation, Eyelid inflammation, Other, Pain, Redness, Vision change ENT: Reports: Dysphagia, Denies: Ear Pain, Epistaxis, Head Aches, Other Symptoms, Post Nasal Drip, Sinus Congestion, Sore Throat Skin: Denies: Breakdown, Bruising, Dry, Itching, Jaundice, Lesions, Nail Changes, Other, Rash Pulmonary: Reports: Cough, Denies: Dyspnea, Other Symptoms, Pleuritic Chest Pain Cardiovascular: Denies: Chest Pain, Edema, Lt Headedness, Orthopnea, Other Symptoms, Palpitations, Paroxysmal Noc. Dyspnea Gastrointestinal: Reports: Constipation, Denies: Abdominal Pain, Diarrhea, Hematochezia, Melena, Nausea, Other Symptoms, Vomiting Genitourinary: Reports: Retention, Denies: Dysuria, Frequency, Hematuria, Incontinence, Other Symptoms Neurological: Denies: Change in speech, Confusion, Incoordination, Numbness, Other Symptoms, Seizures, Weakness Objective Physical Examination General Exam: Positive: Alert, Cooperative, No Acute Distress Eye Exam: Positive: Conjunctiva & lids normal, EOMI, PERRLA, Negative: Sclera icteric ENT Exam: Positive: Atraumatic, Mucous membr. moist/pink, Other ENT (poor dentition) Neck Exam: Positive: Supple Chest Exam: Positive: Clear to auscultation, Normal air movement Heart Exam: Positive: Rate Normal, Regular Rhythm Abdomen Exam: Positive: Normal bowel sounds, Soft, Tenderness (minimal abd tenderness - much improved from admission) Neuro Exam: Negative: Strength at 5/5 X4 ext Psych Exam: Positive: Oriented x 3 Assessment /Plan Problems (1) Dysphagia Status: Chronic Discussed With: Patient Problem Specific Plan: Consult Specialist, Repeat Tests Problem Text: Patient states difficulty swallowing solids and liquids. Swallow evaluation pending today. (2) Weakness Status: Chronic Discussed With: Patient Problem Specific Plan: Consult Specialist, Monitor Clinically, Repeat Tests Problem Text: MRI brain unremarkable MRI L spine pending reveals diffuse disc bulging, new right L5 compression D/w ortho. Assistance greatly appreciated. Rheum workup unremarkable. 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 As per nursing, required encouragement to urinate last night, but was able to do so. CT a/p with no signs of obstruction, renal function WNL. Continue to follow clinically. (4) Acute kidney injury Status: Resolved Response to Treatment: Improving Discussed With: Patient Problem Specific Plan: Monitor Clinically, Repeat Labs Problem Text: DC IV fluids, UCx + Klebsiella - sensitive to FLQ - continue cipro (5) UTI (urinary tract infection) Status: Acute Discussed With: Patient Problem Specific Plan: Monitor Clinically, Repeat Labs Problem Text: Cultures revealed Klebsiella. Continue with Cipro. (6) Diabetes Status: Chronic Discussed With: Patient Problem Specific Plan: Repeat Labs Problem Text: Uncontrolled as per a1c>13 on admission. Continue with modified diet and insulin regimen. Adjusting basal insulin. (7) Anemia Status: Chronic Discussed With: Patient Problem Text: Appears to be secondary to iron deficiency anemia, receiving oral iron supplementation as per home medications. (8) Dyslipidemia Status: Chronic Problem Text: Continue Crestor. (9) Non compliance with medical treatment Status: Chronic Discussed With: Patient Problem Text: Further complicating factor to her medical care. Plan/VTE VTE Prophylaxis Ordered?: Yes (Lovenox) Plan Diet: Continue Current Therapy: PT, OT Medications: Start Antibiotics Diagnostics: Repeat Labs in AM Anticipated Discharge: Home, Home With Services PT eval. Swallow eval. Anticipating discharge in 24-48 hours. VS, I&O, 24H, [facility] Vital Signs/I&O Vital Signs Date Time Temp Pulse Resp B/P Pulse Ox O2 Delivery O2 Flow Rate FiO2 09/23/16 06:00 98.3 83 16 115/64 94 Room Air I&O- Last 24 Hours up to 6 AM 09/23/16 06:00 Intake Total 3040 ml Output Total 2600 ml Balance 440 ml Laboratory Data 24H LABS Laboratory Tests 2 09/22/16 11:49: Bedside Glucose (Misc Panel) 234H 09/22/16 16:53: Bedside Glucose (Misc Panel) 340H 09/22/16 20:25: Bedside Glucose (Misc Panel) 289H 09/23/16 06:03: Anion Gap 7L, Blood Urea Nitrogen 23H, Creatinine 1.01, Sodium Level 141, Potassium Level 3.8, Chloride Level 110H, Carbon Dioxide Level 24, Calcium Level 8.7L, Glomerular Filtration Rate 58.4 CBC/BMP Laboratory Tests 09/23/16 06:03 Calcium Level 8.7 L, Red Blood Count 3.42 L, Mean Corpuscular Volume 79.2 L, Mean Corpuscular Hemoglobin 26.9 L, Mean Corpuscular Hemoglobin Concent 34.0, Red Cell Distribution Width 13.1 Microbiology Microbiology 09/21/16 Blood Culture - Preliminary, Resulted No Growth after 48 hours. All Specime... 09/20/16 Blood Culture - Preliminary, Resulted No Growth after 48 hours. All Specime... 09/20/16 Urine Culture - Final, Complete Klebsiella Pneumoniae FLORIN GARAY MD Sep 23, 2016 10:16
[2016-09-23] MEDS: PANTOPRAZOLE 40MG TAB (PROTONIX) PO SCH (13:27)
[2016-09-23 14:00] VITALS: BP 141/65
[2016-09-23] MEDS: MOM 30ML SUSPENSION UDC PO PRN (15:23)
[2016-09-23] MEDS ORDERED: LevoFLOXacin 500 MG TABLET PO ONE (18:00)
[2016-09-23] MEDS: SENNA 8.6 MG TAB (SENOKOT) PO PRN (20:51)
[2016-09-23 22:00] VITALS: BP 147/70
[2016-09-24] MEDS: ACETAMINOPHEN TAB 650MG DOSE (2X325MG) PO PRN (02:57)
[2016-09-24 06:00] VITALS: BP 114/56
[2016-09-24] MEDS: HumaLOG INSULIN (NovoLOG) PER UNIT SC SCH ×4 (08:10→21:43)
[2016-09-24] MEDS: LEVEMIR (INSULIN DETEMIR) 1 UNITS/0.01ML SC SCH ×2 (08:11→21:44)
[2016-09-24] MEDS: FERROUS SULFATE 325MG TAB PO SCH ×2 (08:12→21:43)
[2016-09-24] MEDS: ROSUVASTATIN 10 MG TAB (CRESTOR) PO SCH (08:12)
[2016-09-24] MEDS: ENOXAPARIN 40 MG/0.4 ML SYRINGE (J1650) SC SCH (08:12)
[2016-09-24] MEDS: CHLORTHALIDONE 25 MG TAB PO SCH (08:13)
[2016-09-24] MEDS: GABAPENTIN 300 MG CAP PO SCH ×3 (08:13→21:43)
[2016-09-24] MEDS: ASPIRIN 81 MG ENTERIC TAB PO SCH (08:13)
[2016-09-24] MEDS: PANTOPRAZOLE 40MG TAB (PROTONIX) PO SCH (08:13)
[2016-09-24] MEDS: SENNA 8.6 MG TAB (SENOKOT) PO PRN (08:17)
[2016-09-24] MEDS: MOM 30ML SUSPENSION UDC PO PRN (08:17)
[2016-09-24] MEDS: DOCUSATE SODIUM 100 MG CAP PO PRN (08:17)
[2016-09-24] MEDS ORDERED: INSUDET SC ×2 (10:06)
[2016-09-24] MEDS ORDERED: INSUHUMDS SC ×2 (10:06)
[2016-09-24] MEDS ORDERED: PANT40TA2 PO (10:06)
[2016-09-24] MEDS ORDERED: LEVA250T PO (10:07)
--- NOTE | 2016-09-24 10:32 | DS.PDOC ---
Discharge Summary General Date of Admission Sep 20, 2016 at 20:03 Date of Discharge 09/24/16 Specialist/Consultants Involve Discussed with orthopedics. Discharge Summary PROCEDURES PERFORMED DURING STAY: Swallow evaluation. DISCHARGE DIAGNOSES: 1. Dysphagia 2. Generalized weakness 3. Acute kidney injury 4. UTI 5. Diabetes - uncontrolled 6. Anemia - iron deficiency 7. Dyslipidemia 8. Non-compliance 9. Pneumonia CHIEF COMPLAINT: [place]; Weakness. HOSPITAL COURSE: 66 ye female with medical as indicated presenting for worsening generalized weakness. Patient has history of chronic lower back, right hip, right knee and right shoulder pain going back 3 years. Patient admitted for further evaluation and treatment. MRI did show diffuse disc bulges , with right L5 nerve compression. Case was discussed with orthopedics with no further intervention. There was an issue of urinary retention, requiring straight cath which did resolve. She was in [place] on admission which resolved. Patient was found to have a UTI, with cultures positive for Klebsiella, she is in the process of completing antimicrobial therapy. Her home regimen for diabetes was replaced with insulin therapy and is still being adjusted. Her diabetes was uncontrolled with an A1C of 13.6. She is requiring less coverage, likely from her dietary restriction while in hospital. Her pain on admission significantly improved through her hospital stay. She was seen and evaluated by PT and PMR and deemed to be a good candidate for further rehab and as such is being discharged to PMR. A CT of her chest showed a LLL pneumonic infiltrate which is being treated as community acquired pneumonia. A 4mm nodular opacity was noted, with [address] chest recommended. DISCHARGE MEDICATIONS: Please see below. ALLERGIES: Please see below. PHYSICAL EXAMINATION ON DISCHARGE: VITAL SIGNS: Please see below. GENERAL: NAD HEENT: NC/AT, EOMI, PERRL NECK: supple CARDIOVASCULAR EXAMINATION: +S1S2, RRR RESPIRATORY EXAMINATION: CTA B/L ABDOMINAL EXAMINATION: soft, NT, +BS EXTREMITIES: no edema NEUROLOGICAL EXAMINATION: strength 2-3/5, sensation grossly intact throughout PSYCHIATRIC EXAMINATION: AAOx3 IMAGING: CT Chest IMPRESSION: Ill-defined parenchymal opacity in the left lower lobe as seen on CT of the abdomen 09/21/2016 is most consistent with an area of pneumonic infiltrate. Recommend short term followup to resolution. 4 mm nodular opacity in the right lower lobe is present and 6-month followup CT of the chest is recommended. MRI L-spine IMPRESSION: 1. Diffuse disc bulges at the L2-3 and L3-4 levels with minimal thecal sac compression. 2. Diffuse disc bulge and small central disc protrusion at the L4-5 level with minimal thecal sac compression. The disc protrusion is a new finding . 3. Diffuse disc bulge at the L5-S1 level. This abuts the S1 nerves. There is compression of the right L5 nerve in the neural foramen. The right L5 nerve compression is a new finding. CT A/P Impression: There is a mass versus infiltrate in the left lower lobe measuring 3.4 cm, not present on the comparison CT. This mass was not visible on the recent plain film PA and lateral views of the chest dated 09/20 2016. The inferior margin of the mass extends to the dome of the left hemidiaphragm. Broad-based ventral hernia containing omental fat and a loop of small bowel posterior to the umbilicus. There is no bowel distension or obstruction. There is a 2 cm fat containing pericolonic appendage adjacent to the distal sigmoid colon as described without evidence of inflammation, unchanged. Otherwise, negative CT study of the abdomen and pelvis. ACTIVITY: As per PMR. DIET: Carb consistent DISPOSITION: Discharge to PMR DISCHARGE INSTRUCTIONS: 1. Follow up imaging as indicated. 2. Medications as directed. 3. Further direction as per PMR. ITEMS TO FOLLOWUP ON ON OUTPATIENT: 1. CT chest in 2 weeks (around 10/06) for follow up of LLL pneumonic infiltrate. 2. CT chest in 6 months (around March 2017) for follow up of 4mm nodular opacity in RLL. DISCHARGE CONDITION: [Stable]. TIME SPENT ON DISCHARGE: Greater than 30 minutes. Vital Signs/I&Os Vital Signs Date Time Temp Pulse Resp B/P Pulse Ox O2 Delivery O2 Flow Rate FiO2 09/24/16 06:00 96.5 65 15 114/56 94 Room Air I&O- Last 24 Hours up to 6 AM 09/24/16 05:59 Intake Total 3355 ml Output Total 2100 ml Balance 1255 ml Laboratory Data Labs 24H Laboratory Tests 2 09/23/16 11:39: Bedside Glucose (Misc Panel) 233H 09/23/16 17:02: Bedside Glucose (Misc Panel) 288H 09/23/16 20:09: Bedside Glucose (Misc Panel) 368H 09/24/16 06:29: Anion Gap 6L, Blood Urea Nitrogen 24H, Creatinine 1.01, Sodium Level 139, Potassium Level 4.0, Chloride Level 107, Carbon Dioxide Level 26, Calcium Level 8.5L, Glomerular Filtration Rate 58.4 CBC/BMP Laboratory Tests 09/24/16 06:29 Calcium Level 8.5 L, Red Blood Count 3.27 L, Mean Corpuscular Volume 78.9 L, Mean Corpuscular Hemoglobin 26.7 L, Mean Corpuscular Hemoglobin Concent 33.8, Red Cell Distribution Width 13.2 FSBS Laboratory Tests Test 09/23/16 11:39 09/23/16 17:02 09/23/16 20:09 Range/Units Bedside Glucose (Misc Panel) 233 288 368 80-115 MG/DL Microbiology Microbiology 09/21/16 Blood Culture - Preliminary, Resulted No Growth after 72 hours. All specime... 09/20/16 Blood Culture - Preliminary, Resulted No Growth after 72 hours. All specime... 09/20/16 Urine Culture - Final, Complete Klebsiella Pneumoniae Discharge Medications Scheduled Acetaminophen (Acetaminophen ER) 650 Mg Tab 650 MG PO BID (Reported) Alendronate Sodium (Fosamax) 70 Mg Tab 70 MG PO QWEEK (Reported) PATIENT IS UNSURE OF WHAT DAY SHE TAKES THIS MED Aspirin (Aspirin 81) 81 Mg Tab 81 MG PO DAILY (Reported) Calcium/Vitamin D (Calcium 600 + D 600-400 mg-Unit) 1 Tab Tab 1 TAB PO DAILY ( Reported) Chlorthalidone (Chlorthalidone) 25 Mg Tab 25 MG PO DAILY (Reported) Ferrous Sulfate (Ferrous Sulfate) 325 Mg Tab 325 MG PO BID (Reported) Gabapentin (Gabapentin) 300 Mg Cap 300 MG PO TID (Reported) Insulin Detemir (Levemir) 1 Units/0.01 Ml Susp 30 UNITS SC QHS Insulin Detemir (Levemir) 1 Units/0.01 Ml Susp 20 UNITS SC QAM Insulin Human Lispro (Humalog) 1 Units/0.01 Ml Inj 0 UNITS SC AC Insulin Human Lispro (Humalog) 1 Units/0.01 Ml Inj 0 UNITS SC QHS Levofloxacin Hemihydrate (Levaquin) 250 Mg Tab 250 MG PO DAILY@18 Levothyroxine Sodium (Synthroid) 150 Mcg Tab 300 MCG PO DAILY (Reported) Lisinopril (Lisinopril) 20 Mg Tab 20 MG PO BID (Reported) Pantoprazole Sodium (Pantoprazole Sodium) 40 Mg Tab 40 MG PO DAILY Rosuvastatin Calcium (Crestor) 40 Mg Tab 40 MG PO DAILY (Reported) Vitamin D (Drisdol) 50,000 Unit Cap 50,000 UNIT PO QWEEK (Reported) SUNDAYS Miscellaneous Medications ([Patient Comment]) (Reported) PATIENT TOOK ALL AM MEDICATIONS TODAY. UNABLE TO VERIFY WHICH MEDS SHE TAKES MORNING AND NIGHT, HAS HOME HEALTH NURSE THAT DOES MEDICATIONS. VERIFIED MEDICATION LIST WITH PHARMACY. Allergies Coded Allergies: Penicillins (Verified Allergy, Intermediate, "FLIPS OUT", HIVES, 09/18/12) Penicillins Cross Reactors (Verified Allergy, Intermediate, "FLIPS OUT", HIVES, 09/18/12) FLORIN GARAY MD Sep 24, 2016 10:32
--- NOTE | 2016-09-24 12:05 | IPNPDOC ---
Subjective Date Seen The patient was seen on 09/24/16. Subjective Chief Complaint/HPI The patient is a 66-year-old female admitted with a reason for visit of [facility]; Weakness. General: Denies: Chills, Fatigue, Malaise, Night Sweats, Normal Appetite, Other Symptoms, ROS Unobtainable Constitutional: Denies: Chills, Fatigue, Fever, Lethargy, Malaise, Night Sweats , Other, Weakness, Weight Loss Eyes: Denies: Conjunctivae inflammation, Eyelid inflammation, Other, Pain, Redness, Vision change ENT: Denies: Dysphagia, Ear Pain, Epistaxis, Head Aches, Other Symptoms, Post Nasal Drip, Sinus Congestion, Sore Throat Skin: Denies: Breakdown, Bruising, Dry, Itching, Jaundice, Lesions, Nail Changes, Other, Rash Pulmonary: Denies: Cough, Dyspnea, Other Symptoms, Pleuritic Chest Pain Cardiovascular: Denies: Chest Pain, Edema, Lt Headedness, Orthopnea, Other Symptoms, Palpitations, Paroxysmal Noc. Dyspnea Gastrointestinal: Denies: Abdominal Pain, Constipation, Diarrhea, Hematochezia , Melena, Nausea, Other Symptoms, Vomiting Genitourinary: Denies: Dysuria, Frequency, Hematuria, Incontinence, Other Symptoms, Retention Musculoskeletal: Reports: Back Pain, Leg Pain Neurological: Reports: Weakness Objective Physical Examination General Exam: Positive: Alert, Cooperative, No Acute Distress Eye Exam: Positive: Conjunctiva & lids normal, EOMI, PERRLA, Negative: Sclera icteric ENT Exam: Positive: Atraumatic, Mucous membr. moist/pink, Other ENT (poor dentition) Neck Exam: Positive: Supple Chest Exam: Positive: Clear to auscultation, Normal air movement Heart Exam: Positive: Rate Normal, Regular Rhythm Abdomen Exam: Positive: Normal bowel sounds, Soft, Tenderness (minimal abd tenderness - much improved from admission) Neuro Exam: Negative: Strength at 5/5 X4 ext Psych Exam: Positive: Oriented x 3 Assessment /Plan Problems (1) Dysphagia Status: Chronic Discussed With: Patient Problem Specific Plan: Consult Specialist, Repeat Tests Problem Text: Patient states difficulty swallowing solids and liquids. Swallow evaluation completed - recommendation for mechanical soft diet. (2) Anemia Status: Chronic Discussed With: Patient Problem Text: Appears to be secondary to iron deficiency anemia, receiving oral iron supplementation as per home medications. Hg slowly dropping. Check stool occult blood. DC pharmacologic prophylaxis. (3) Weakness Status: Chronic Discussed With: Patient Problem Specific Plan: Consult Specialist, Monitor Clinically Problem Text: MRI brain unremarkable MRI L spine pending reveals diffuse disc bulging, new right L5 compression D/w ortho. Assistance greatly appreciated. Rheum workup unremarkable. Continue with PT/OT. (4) Urinary retention Status: Resolved Discussed With: Patient Problem Specific Plan: Consult Specialist, Monitor Clinically Problem Text: Appears to have resolved. CT a/p with no signs of obstruction, renal function WNL. Continue to follow clinically. (5) Acute kidney injury Status: Resolved Response to Treatment: Improving Discussed With: Patient Problem Specific Plan: Monitor Clinically, Repeat Labs Problem Text: DC IV fluids, UCx + Klebsiella - sensitive to FLQ - continue cipro (6) UTI (urinary tract infection) Status: Acute Discussed With: Patient Problem Specific Plan: Monitor Clinically, Repeat Labs Problem Text: Cultures revealed Klebsiella. Continue with Cipro. (7) Diabetes Status: Chronic Discussed With: Patient Problem Specific Plan: Repeat Labs Problem Text: Uncontrolled as per a1c>13 on admission. Continue with modified diet and insulin regimen. Adjusting basal insulin. (8) Dyslipidemia Status: Chronic Problem Text: Continue Crestor. (9) Non compliance with medical treatment Status: Chronic Discussed With: Patient Problem Text: Further complicating factor to her medical care. Plan/VTE VTE Prophylaxis Ordered?: Yes (mechanical) Plan Diet: Continue Current Therapy: PT, OT Medications: Start Antibiotics Diagnostics: Repeat Labs in AM Anticipated Discharge: Home With Services, Sub Acute Rehab Continue to monitor hemoglobin. Stool occult blood pending. Continue PT treatment. Not a candidate for PMR, anticipating STR/SNF. VS, I&O, 24H, Fishbone Vital Signs/I&O Vital Signs Date Time Temp Pulse Resp B/P Pulse Ox O2 Delivery O2 Flow Rate FiO2 09/24/16 06:00 96.5 65 15 114/56 94 Room Air I&O- Last 24 Hours up to 6 AM 09/24/16 06:00 Intake Total 3530 ml Output Total 2100 ml Balance 1430 ml Laboratory Data 24H LABS Laboratory Tests 2 09/23/16 17:02: Bedside Glucose (Misc Panel) 288H 09/23/16 20:09: Bedside Glucose (Misc Panel) 368H 09/24/16 06:29: Anion Gap 6L, Blood Urea Nitrogen 24H, Creatinine 1.01, Sodium Level 139, Potassium Level 4.0, Chloride Level 107, Carbon Dioxide Level 26, Calcium Level 8.5L, Glomerular Filtration Rate 58.4 CBC/BMP Laboratory Tests 09/24/16 06:29 Calcium Level 8.5 L, Red Blood Count 3.27 L, Mean Corpuscular Volume 78.9 L, Mean Corpuscular Hemoglobin 26.7 L, Mean Corpuscular Hemoglobin Concent 33.8, Red Cell Distribution Width 13.2 Microbiology Microbiology 09/21/16 Blood Culture - Preliminary, Resulted No Growth after 72 hours. All specime... 09/20/16 Blood Culture - Preliminary, Resulted No Growth after 72 hours. All specime... 09/20/16 Urine Culture - Final, Complete Klebsiella Pneumoniae FLORIN GARAY MD Sep 24, 2016 12:05
[2016-09-24] MEDS: LevoFLOXacin 250 MG TABLET PO SCH (18:06)
[2016-09-24] MEDS ORDERED: FLEET ENEMA PR PRN (18:15)
[2016-09-24 22:00] VITALS: BP 150/67
[2016-09-25 06:00] VITALS: BP 115/58
--- NOTE | 2016-09-25 08:38 | IPNPDOC ---
Subjective Date Seen The patient was seen on 09/25/16. Subjective Chief Complaint/HPI The patient is a 66-year-old female admitted with a reason for visit of [facility]; Weakness. General: Denies: Chills, Fatigue, Malaise, Night Sweats, Normal Appetite, Other Symptoms, ROS Unobtainable Constitutional: Denies: Chills, Fatigue, Fever, Lethargy, Malaise, Night Sweats , Other, Weakness, Weight Loss Eyes: Denies: Conjunctivae inflammation, Eyelid inflammation, Other, Pain, Redness, Vision change ENT: Denies: Dysphagia, Ear Pain, Epistaxis, Head Aches, Other Symptoms, Post Nasal Drip, Sinus Congestion, Sore Throat Skin: Denies: Breakdown, Bruising, Dry, Itching, Jaundice, Lesions, Nail Changes, Other, Rash Pulmonary: Denies: Cough, Dyspnea, Other Symptoms, Pleuritic Chest Pain Cardiovascular: Denies: Chest Pain, Edema, Lt Headedness, Orthopnea, Other Symptoms, Palpitations, Paroxysmal Noc. Dyspnea Gastrointestinal: Denies: Abdominal Pain, Constipation, Diarrhea, Hematochezia , Melena, Nausea, Other Symptoms, Vomiting Musculoskeletal: Reports: Back Pain, Neck Pain, Shoulder Pain, Denies: Arm Pain, Foot Pain, Hand Pain, Joint Pain, Leg Pain, Muscle Pain, Other Symptoms, Spasms Neurological: Reports: Weakness, Denies: Change in speech, Confusion, Incoordination, Numbness, Other Symptoms , Seizures Objective Physical Examination General Exam: Positive: Alert, Cooperative, No Acute Distress Eye Exam: Positive: Conjunctiva & lids normal, EOMI, PERRLA, Negative: Sclera icteric ENT Exam: Positive: Atraumatic, Mucous membr. moist/pink Neck Exam: Positive: Supple Chest Exam: Positive: Clear to auscultation, Normal air movement Heart Exam: Positive: Rate Normal, Regular Rhythm Abdomen Exam: Positive: Normal bowel sounds, Soft, Tenderness (mild abdominal tenderness) Neuro Exam: Negative: Strength at 5/5 X4 ext Psych Exam: Negative: Oriented x 3 (oriented to person and place) Assessment /Plan Problems (1) Dysphagia Status: Chronic Discussed With: Patient Problem Specific Plan: Consult Specialist, Repeat Tests Problem Text: Patient states difficulty swallowing solids and liquids. Swallow evaluation completed - recommendation for mechanical soft diet. (2) Anemia Status: Chronic Discussed With: Patient Problem Text: Appears to be secondary to iron deficiency anemia, receiving oral iron supplementation as per home medications. Stable. Stool guaic pending. (3) Weakness Status: Chronic Discussed With: Patient Problem Specific Plan: Consult Specialist, Monitor Clinically Problem Text: MRI brain unremarkable MRI L spine pending reveals diffuse disc bulging, new right L5 compression D/w ortho. Assistance greatly appreciated. Rheum workup unremarkable. Continue with PT/OT. Neurology consultation pending. (4) Urinary retention Status: Resolved Discussed With: Patient Problem Specific Plan: Consult Specialist, Monitor Clinically Problem Text: Appears to have resolved. CT a/p with no signs of obstruction, renal function WNL. Continue to follow clinically. (5) Acute kidney injury Status: Resolved Response to Treatment: Improving Discussed With: Patient Problem Specific Plan: Monitor Clinically, Repeat Labs Problem Text: DC IV fluids, UCx + Klebsiella - sensitive to FLQ - continue cipro (6) UTI (urinary tract infection) Status: Acute Discussed With: Patient Problem Specific Plan: Monitor Clinically, Repeat Labs Problem Text: Cultures revealed Klebsiella. Continue with Cipro. (7) Diabetes Status: Chronic Discussed With: Patient Problem Specific Plan: Repeat Labs Problem Text: Uncontrolled as per a1c>13 on admission. Continue with modified diet and insulin regimen. Adjusting basal insulin. (8) Dyslipidemia Status: Chronic Problem Text: Continue Crestor. (9) Non compliance with medical treatment Status: Chronic Discussed With: Patient Problem Text: Further complicating factor to her medical care. Plan/VTE VTE Prophylaxis Ordered?: Yes (mechanical) Plan Diet: Continue Current Therapy: PT, OT Medications: Start Antibiotics Diagnostics: Repeat Labs in AM Anticipated Discharge: Sub Acute Rehab, Assisted Living VS, I&O, 24H, Ev Vital Signs/I&O Vital Signs Date Time Temp Pulse Resp B/P Pulse Ox O2 Delivery O2 Flow Rate FiO2 09/25/16 06:00 97.8 68 16 115/58 96 Room Air I&O- Last 24 Hours up to 6 AM 09/25/16 06:00 Intake Total 920 ml Output Total 2150 ml Balance -1230 ml Laboratory Data 24H LABS Laboratory Tests 2 09/24/16 11:58: Bedside Glucose (Misc Panel) 253H 09/24/16 16:32: Bedside Glucose (Misc Panel) 271H 09/24/16 20:47: Bedside Glucose (Misc Panel) 362H 09/25/16 05:23: Anion Gap 8, Blood Urea Nitrogen 24H, Creatinine 0.94, Sodium Level 140, Potassium Level 3.8, Chloride Level 106, Carbon Dioxide Level 26, Calcium Level 8.7L, Glomerular Filtration Rate > 60.0 CBC/BMP Laboratory Tests 09/25/16 05:23 Calcium Level 8.7 L, Red Blood Count 3.37 L, Mean Corpuscular Volume 80.7, Mean Corpuscular Hemoglobin 27.2, Mean Corpuscular Hemoglobin Concent 33.7, Red Cell Distribution Width 13.4 Microbiology Microbiology 09/21/16 Blood Culture - Preliminary, Resulted No Growth after 72 hours. All specime... 09/20/16 Blood Culture - Preliminary, Resulted No Growth after 72 hours. All specime... 09/20/16 Urine Culture - Final, Complete Klebsiella Pneumoniae FLORIN GARAY MD Sep 25, 2016 08:38
[2016-09-25] MEDS: HumaLOG INSULIN (NovoLOG) PER UNIT SC SCH ×4 (09:24→21:34)
[2016-09-25] MEDS: LEVEMIR (INSULIN DETEMIR) 1 UNITS/0.01ML SC SCH ×2 (09:24→21:34)
[2016-09-25] MEDS: FERROUS SULFATE 325MG TAB PO SCH ×2 (09:25→21:33)
[2016-09-25] MEDS: PANTOPRAZOLE 40MG TAB (PROTONIX) PO SCH (09:25)
[2016-09-25] MEDS: ROSUVASTATIN 10 MG TAB (CRESTOR) PO SCH (09:25)
[2016-09-25] MEDS: CHLORTHALIDONE 25 MG TAB PO SCH (09:25)
[2016-09-25] MEDS: ASPIRIN 81 MG ENTERIC TAB PO SCH (09:25)
[2016-09-25] MEDS: GABAPENTIN 300 MG CAP PO SCH ×3 (09:25→21:33)
[2016-09-25 14:00] VITALS: BP 137/63
[2016-09-25] MEDS: LevoFLOXacin 250 MG TABLET PO SCH (17:12)
[2016-09-25] MEDS: ACETAMINOPHEN TAB 650MG DOSE (2X325MG) PO PRN (21:33)
[2016-09-25 22:00] VITALS: BP 142/70
[2016-09-26] MEDS: ACETAMINOPHEN TAB 650MG DOSE (2X325MG) PO PRN ×4 (03:24→21:00)
--- NOTE | 2016-09-26 07:35 | REP ---
MRI THORACIC SPINE WITHOUT CONTRAST: 09/25/2016. Clinical history: Leg weakness, urinary retention. Evaluate thoracic spine. Technique: Sagittal curtain stretcher images with a marker at the T2 level used to define the cervical levels for this exam, T1, T2 and STIR sagittal sequences with axial images from C7-T1 to T12-L1. Findings: The vertebral body heights and marrow signal throughout the thoracic spine are normal with a normal gentle thoracic kyphosis slightly exaggerated in the upper chest. There is slight narrowing of disc space in the mid thoracic levels. Small anterior osteophytes in the mid thoracic level as well. There is loss of disc water signal throughout the upper, mid and lower thoracic levels on the T2 images. The conus terminates at L1. At C7-T1 and T1-2, there is no significant disc bulge, herniation and no spinal or foraminal stenosis. At T2-T3, there is small right paracentral disc bulge without central canal stenosis or foraminal encroachment. At T3-4, there is a small right paracentral disc bulge without spinal or foraminal stenosis. At T4-5, there is no significant disc bulge or herniation and no spinal or foraminal stenosis. At T5-6, there is a central disc protrusion. This does not abut the cord or cause spinal stenosis. Foramina are adequate. At T6-7 there is a small right paracentral disc bulge without spinal stenosis or foraminal encroachment. At T7-8, there is a left paracentral disc protrusion which is small without significant spinal or foraminal stenosis. At T8-9, there is a central and left paracentral disc protrusion abutting the cord but not causing significant spinal stenosis. It does flatten the ventral cord surface. Foramina adequate. At T9-T10, T10-11, T11-12 and T12-L1, there is no disc bulge or herniation and no spinal or foraminal stenosis. Impression: 1. There are multiple disc bulges and disc protrusions at levels in the thoracic spine as detailed above. The T8-9 level with central and left paracentral disc protrusion does abut the cord and flatten its ventral surface but does not cause significant overall spinal stenosis. The multiple other levels with the disc bulges and protrusions do not cause significant central canal stenosis or foraminal encroachment. 2. No intrinsic cord signal abnormality, syrinx, atrophy or mass. Conus terminates at L1 level. 3. No compression deformity or marrow signal abnormality in the thoracic spine. Signed by Jensen Dempsey MD 09/26/2016 08:31 A
--- NOTE | 2016-09-26 07:57 | IPNPDOC ---
Subjective Date Seen The patient was seen on 09/26/16. Subjective Chief Complaint/HPI The patient is a 66-year-old female admitted with a reason for visit of [facility]; Weakness. General: Denies: Chills, Fatigue, Malaise, Night Sweats, Normal Appetite, Other Symptoms, ROS Unobtainable Constitutional: Denies: Chills, Fatigue, Fever, Lethargy, Malaise, Night Sweats , Other, Weakness, Weight Loss Eyes: Denies: Conjunctivae inflammation, Eyelid inflammation, Other, Pain, Redness, Vision change ENT: Denies: Dysphagia, Ear Pain, Epistaxis, Head Aches, Other Symptoms, Post Nasal Drip, Sinus Congestion, Sore Throat Skin: Denies: Breakdown, Bruising, Dry, Itching, Jaundice, Lesions, Nail Changes, Other, Rash Pulmonary: Denies: Cough, Dyspnea, Other Symptoms, Pleuritic Chest Pain Cardiovascular: Denies: Chest Pain, Edema, Lt Headedness, Orthopnea, Other Symptoms, Palpitations, Paroxysmal Noc. Dyspnea Gastrointestinal: Denies: Abdominal Pain, Constipation, Diarrhea, Hematochezia , Melena, Nausea, Other Symptoms, Vomiting Genitourinary: Denies: Dysuria, Frequency, Hematuria, Incontinence, Other Symptoms, Retention Hematologic: Denies: Bleeding Excessively, Bruising, Enlarged Lymph Nodes, Other Hematologic, Petecchia, Purpura Musculoskeletal: Reports: Back Pain, Leg Pain, Other Symptoms (right hip pain) Neurological: Reports: Weakness Objective Physical Examination General Exam: Positive: Alert, Cooperative, No Acute Distress Eye Exam: Positive: Conjunctiva & lids normal, EOMI, PERRLA, Negative: Sclera icteric ENT Exam: Positive: Atraumatic, Mucous membr. moist/pink Neck Exam: Positive: Supple Chest Exam: Positive: Clear to auscultation, Normal air movement Heart Exam: Positive: Rate Normal, Regular Rhythm Abdomen Exam: Positive: Normal bowel sounds, Soft, Tenderness (mild abdominal tenderness) Neuro Exam: Negative: Strength at 5/5 X4 ext Psych Exam: Negative: Oriented x 3 (oriented to person and place) Assessment /Plan Problems (1) Weakness Status: Chronic Discussed With: Patient Problem Specific Plan: Consult Specialist, Monitor Clinically Problem Text: MRI brain unremarkable MRI L spine pending reveals diffuse disc bulging, new right L5 compression D/w ortho. Assistance greatly appreciated. Rheum workup unremarkable. Continue with PT/OT. Neurology consultation pending. MRI C/T spine noted. To discuss further with neurology. (2) Dysphagia Status: Chronic Discussed With: Patient Problem Specific Plan: Consult Specialist, Repeat Tests Problem Text: Patient states difficulty swallowing solids and liquids. Swallow evaluation completed - recommendation for mechanical soft diet. (3) Anemia Status: Chronic Discussed With: Patient Problem Text: Appears to be secondary to iron deficiency anemia, receiving oral iron supplementation as per home medications. Stable. Stool guaic pending. (4) Urinary retention Status: Resolved Discussed With: Patient Problem Specific Plan: Consult Specialist, Monitor Clinically Problem Text: Appears to have resolved. CT a/p with no signs of obstruction, renal function WNL. Continue to follow clinically. (5) Acute kidney injury Status: Resolved Response to Treatment: Improving Discussed With: Patient Problem Specific Plan: Monitor Clinically, Repeat Labs Problem Text: DC IV fluids, UCx + Klebsiella - sensitive to FLQ - continue levaquin could likely d/c in around 3 days - 09/29/16 (6) UTI (urinary tract infection) Status: Acute Discussed With: Patient Problem Specific Plan: Monitor Clinically, Repeat Labs Problem Text: Cultures revealed Klebsiella. Continue with Cipro. (7) Diabetes Status: Chronic Discussed With: Patient Problem Specific Plan: Repeat Labs Problem Text: Uncontrolled as per a1c>13 on admission. Continue with modified diet and insulin regimen. Adjusting basal insulin. (8) Dyslipidemia Status: Chronic Problem Text: Continue Crestor. (9) Non compliance with medical treatment Status: Chronic Discussed With: Patient Problem Text: Further complicating factor to her medical care. Plan/VTE VTE Prophylaxis Ordered?: Yes (mechanical) Plan Diet: Continue Current Therapy: PT, OT Medications: Taper Antibiotics Diagnostics: Repeat Labs in AM Anticipated Discharge: Sub Acute Rehab, Assisted Living Pending neurology follow up. To complete antibiotics in 3 days. Anticipating discharge to facility. VS, I&O, 24H, Pranavbone Vital Signs/I&O Vital Signs Date Time Temp Pulse Resp B/P Pulse Ox O2 Delivery O2 Flow Rate FiO2 09/25/16 22:00 97.9 80 16 142/70 95 Room Air I&O- Last 24 Hours up to 6 AM 09/26/16 06:00 Intake Total 2060 ml Output Total 2100 ml Balance -40 ml Laboratory Data 24H LABS Laboratory Tests 2 09/25/16 11:45: Bedside Glucose (Misc Panel) 168H 09/25/16 16:38: Bedside Glucose (Misc Panel) 378H 09/25/16 20:15: Bedside Glucose (Misc Panel) 389H 09/26/16 05:12: Anion Gap 7L, Blood Urea Nitrogen 20H, Creatinine 0.91, Sodium Level 142, Potassium Level 3.6, Chloride Level 108H, Carbon Dioxide Level 27, Calcium Level 8.5L, Glomerular Filtration Rate > 60.0 CBC/BMP Laboratory Tests 09/26/16 05:12 Calcium Level 8.5 L, Red Blood Count 3.41 L, Mean Corpuscular Volume 80.3, Mean Corpuscular Hemoglobin 27.2, Mean Corpuscular Hemoglobin Concent 33.9, Red Cell Distribution Width 13.5 Microbiology Microbiology 09/21/16 Blood Culture - Final, Complete NO GROWTH AFTER 5 DAYS 09/20/16 Blood Culture - Final, Complete NO GROWTH AFTER 5 DAYS 09/20/16 Urine Culture - Final, Complete Klebsiella Pneumoniae FLORIN GARAY MD Sep 26, 2016 07:57
--- NOTE | 2016-09-26 08:02 | REP ---
MRI CERVICAL SPINE WITHOUT CONTRAST: 09/25/2016. Comparison: X-ray 08/17/2016. Clinical history: Leg weakness, urinary retention. Technique sagittal T1-T2 STIR images with axial T1-T2 sequences provided. Findings: The normal cervical lordosis is preserved. The vertebral body heights and marrow signal are normal throughout from C2 to the upper thoracic levels. The disc space heights are mildly diminished at C4-5. Loss of disc water signal at all levels in the cervical spine. The dens was intact relationship to the anterior arch of C1 unremarkable. Craniocervical junction shows ample subarachnoid space with no cerebellar tonsillar ectopia. The cervical cord shows no syrinx, atrophy, hemorrhage or mass. At C2-3 there is no significant disc bulge herniation and no spinal or foraminal stenosis. At C3-4 minimal disc bulge thinning ventral subarachnoid space but adequate. AP canal diameter 10 mm. Foramina adequate on the right marginally adequate on the left without nerve root compression. C4-5 minimal disc bulge thinning ventral subarachnoid space is does not compress the cord. The foramina are marginally adequate on the right adequate on the left. At C5-6 there is a broad-based disc bulge flattening ventral thecal sac and ventral cord surface. The AP canal diameter is diminished to 7.8 mm. The left foramen is mildly stenotic due to combined factors right foramen adequate. The C6-7, minimal disc bulge abutting the ventral cord surface. AP canal diameter centrally as 9 mm. Foramina are mildly stenotic on both sides. At C7-T1 there is a mild disc bulge thinning ventral subarachnoid space with foramen adequate. The T1-T2 level shows a disc bulge flattening ventral thecal sac with foramen adequate as well. Impression: 1. Cervical spondylosis with multilevel degenerative disc disease with loss of disc water signal at all levels and loss of disc height at some levels. Most levels have disc bulges with thinning of the ventral subarachnoid space and central canal stenosis generally mild with AP canal diameters ranging usually from 8 to 10 mm. No intrinsic cord signal abnormality or myelomalacia. No syrinx. There is foraminal encroachment at multiple levels as described in detail. Signed by Jensen Dempsey MD 09/26/2016 08:36 A
[2016-09-26] MEDS: FERROUS SULFATE 325MG TAB PO SCH ×2 (08:58→21:00)
[2016-09-26] MEDS: ROSUVASTATIN 10 MG TAB (CRESTOR) PO SCH (08:58)
[2016-09-26] MEDS: HumaLOG INSULIN (NovoLOG) PER UNIT SC SCH ×4 (08:58→21:01)
[2016-09-26] MEDS: CHLORTHALIDONE 25 MG TAB PO SCH (08:59)
[2016-09-26] MEDS: LEVEMIR (INSULIN DETEMIR) 1 UNITS/0.01ML SC SCH ×2 (08:59→21:01)
[2016-09-26] MEDS: ASPIRIN 81 MG ENTERIC TAB PO SCH (08:59)
[2016-09-26] MEDS: PANTOPRAZOLE 40MG TAB (PROTONIX) PO SCH (08:59)
[2016-09-26] MEDS: GABAPENTIN 300 MG CAP PO SCH ×3 (08:59→21:00)
--- NOTE | 2016-09-26 10:13 | CR ---
DATE OF CONSULTATION: 09/25/2016 REFERRING PHYSICIAN: Dr. Moses Hunter. REASON FOR CONSULTATION: Generalized weakness. HISTORY OF PRESENT ILLNESS: Patient is a 66-year-old woman with history of diabetes for more than 40 years, hypertension, breast cancer status post mastectomy and chemotherapy, who was admitted at [facility] on 09/20/2016 for worsening generalized weakness, joint pain. Patient states that she has back and neck pain for many years. She also has pain in her right hip, knee and shoulder joints. She has aching discomfort in her joints. She feels dizzy at times. She feels 6/10 neck and back pain for many years. She had transient urinary hesitancy and retention for which she needed straight catheterization in the hospital here. She also has constipation. She has off and on headaches. She denies any dysphagia, dysarthria, diplopia. She denies any loss of consciousness or seizures. PAST MEDICAL HISTORY: 1. Diabetes. 2. Hypertension. 3. Hypothyroidism. 4. Breast cancer on left side status post mastectomy and chemotherapy 5-6 years ago. 5. Cholecystectomy. 6. Hernia repair. HOME MEDICATIONS: - Fosamax 70 mg by mouth once a week - aspirin 81 mg by mouth daily - Jardiance 25 mg by mouth daily - gabapentin 300 mg by mouth twice a day - insulin Humalog 10 units subcutaneous with meals - lisinopril 20 mg by mouth twice a day - Crestor 40 mg by mouth daily - Toujeo insulin 8 units in the morning and 30 units in the evening SOCIAL HISTORY: She quit smoking 7 years ago. She denies alcohol or illicit drugs. FAMILY HISTORY: Noncontributory. REVIEW OF SYSTEMS: All systems were reviewed and were found to be noncontributory except as mentioned in history present illness. PHYSICAL EXAMINATION: Temperature 97.8, pulse 94, respiratory rate 16, blood pressure 148/96. Heart: Regular rate rhythm. Lungs: Clear to auscultation. Abdomen: Soft, nontender, nondistended. Neurologic exam: Patient is awake, alert, oriented to place, person and time. Normal speech, comprehension and repetition. Extraocular muscles are intact. No facial weakness. Tongue and uvula are midline. 4+/5 strength in all four extremities with pain and intermittent activation. Deep tendon flexes are absent throughout. Her gait is unsteady. She has decreased cold, pinprick, vibration, sensation in her arms and legs. DIAGNOSTIC STUDIES: Her MRI scan of lumbosacral spine was reviewed and showed multilevel lumbosacral degenerative disc disease and compression of right L5 nerve root. Her hemoglobin A1c is 13.6. Hemoglobin 9.2. Vitamin B12 421. Folic acid 17. MRI brain showed small vessel ischemic disease of brain. ASSESSMENT: 1. Multifactorial gait difficulty. 2. Severe diabetic neuropathy. 3. Superimposed chemotherapy induced neuropathy. 4. Lumbosacral degenerative disc disease. 5. There is concern for cervical and thoracic myelopathy. PLAN: 1. MRI cervical and thoracic spine without contrast. 2. Physical therapy. 3. Continue using a walker and wheelchair as needed.
[2016-09-26 14:00] VITALS: BP 113/60
[2016-09-26] MEDS: DOCUSATE SODIUM 100 MG CAP PO PRN (17:08)
[2016-09-26] MEDS: LevoFLOXacin 250 MG TABLET PO SCH (17:08)
[2016-09-26 22:00] VITALS: BP 136/61
[2016-09-27 06:00] VITALS: BP 139/69
[2016-09-27] MEDS: ASPIRIN 81 MG ENTERIC TAB PO SCH (08:47)
[2016-09-27] MEDS: HumaLOG INSULIN (NovoLOG) PER UNIT SC SCH ×2 (08:47→12:08)
[2016-09-27] MEDS: FERROUS SULFATE 325MG TAB PO SCH (08:47)
[2016-09-27] MEDS: ROSUVASTATIN 10 MG TAB (CRESTOR) PO SCH (08:47)
[2016-09-27] MEDS: LEVEMIR (INSULIN DETEMIR) 1 UNITS/0.01ML SC SCH (08:48)
[2016-09-27] MEDS: CHLORTHALIDONE 25 MG TAB PO SCH (08:48)
[2016-09-27] MEDS: PANTOPRAZOLE 40MG TAB (PROTONIX) PO SCH (08:48)
[2016-09-27] MEDS: GABAPENTIN 300 MG CAP PO SCH ×2 (08:48→15:32)
[2016-09-27] MEDS: DOCUSATE SODIUM 100 MG CAP PO PRN (12:08)
[2016-09-27] MEDS: SENNA 8.6 MG TAB (SENOKOT) PO PRN (12:08)
[2016-09-27 14:00] VITALS: BP 145/65
--- NOTE | 2016-09-27 14:42 | DSES ---
DATE OF ADMISSION: 09/20/2016 DATE OF DISCHARGE: 09/27/2016 This an addendum to a discharge dictated by Dr. Hunter on 09/24/2016. Please see report #[id number]. The patient was discharged to physical medicine and rehabilitation for rehabilitation. The patient was initially discharged on September 24. Please see full discharge note dictated by Dr. Hunter. In the last few days, the patient was evaluated by Dr. Mendosa for generalized weakness. He recommended an MRI of cervical and thoracic spine, which showed multiple disk bulging and disk protrusion, but no significant cord abnormality. At this time, the patient was accepted by the physical medicine and rehabilitation provider. If they need to reconsult neurology they may do that after the patient is transferred to physical medicine and rehabilitation. The patient at this time is awake, alert and oriented times three.
== END 2016-09-27 15:45 | DRG 682 ==
LOC: M ED 16:48 → M ED INP 20:03 → M MSPAV 21:03
PROVIDERS: ADMIT Internal Medicine; ATTEND Internal Medicine
DX: N17.9 Acute kidney failure, unspecified (principal); J18.9 Pneumonia, unspecified organism; N39.0 Urinary tract infection, site not specified; M50.01 Cervical disc disorder with myelopathy, high cervical region; M50.021 Cervical disc disorder at C4-C5 level with myelopathy; M50.023 Cervical disc disorder at C6-C7 level with myelopathy; M51.04 Intervertebral disc disorders with myelopathy, thoracic region; R53.81 Other malaise; E03.9 Hypothyroidism, unspecified; J45.909 Unspecified asthma, uncomplicated; R53.1 Weakness; E78.5 Hyperlipidemia, unspecified; D50.9 Iron deficiency anemia, unspecified; M79.1 Myalgia; E11.65 Type 2 diabetes mellitus with hyperglycemia; E11.40 Type 2 diabetes mellitus with diabetic neuropathy, unspecified; R32 Unspecified urinary incontinence; R26.89 Other abnormalities of gait and mobility; R33.9 Retention of urine, unspecified; G62.0 Drug-induced polyneuropathy; B96.1 Klebsiella pneumoniae [K. pneumoniae] as the cause of diseases classified elsewhere; K59.00 Constipation, unspecified; R13.10 Dysphagia, unspecified; T45.1X5S Adverse effect of antineoplastic and immunosuppressive drugs, sequela; I10 Essential (primary) hypertension; R91.8 Other nonspecific abnormal finding of lung field; M51.26 Other intervertebral disc displacement, lumbar region; R39.15 Urgency of urination; Z85.3 Personal history of malignant neoplasm of breast; Z92.21 Personal history of antineoplastic chemotherapy; Z90.12 Acquired absence of left breast and nipple; Z79.82 Long term (current) use of aspirin; Z79.4 Long term (current) use of insulin; Z79.899 Other long term (current) drug therapy; Z79.84 Long term (current) use of oral hypoglycemic drugs; Z91.19 Patient's noncompliance with other medical treatment and regimen; Z87.891 Personal history of nicotine dependence; Z88.0 Allergy status to penicillin

== ENCOUNTER 2016-09-27 12:18 | Inpatient (IN) | payer MEDICARE, OTHER ==
[~2016-09-27] VITALS: Ht 162.6 cm; Wt 82.9 kg
[~2016-09-27 12:18] MED LIST changes: +ACET650T2 PO; +ASPI1TAB PO; +CALCTAB68 PO; +CARV12.5; +CHLO125TA; +CHLO25TA PO; +CRES40TA; +CRES40TA PO; +DRIS50002 PO; +FERR325T PO; +FOSA70TA PO; +GABA-282 PO; +INSUDET SC; +INSUHUMDS SC; +JARD1TAB3; +JARD1TAB3 PO; +LEVA250T PO; +LEVO200T4; +LISI-538 PO; +PANT40TA2 PO; +PATIENT COMMENT; +SM 88TAB; +SYNT150T PO; +TOUJ1.2I; +TOUJ1.2I SC; +VITA50003
[2016-09-27] MEDS ORDERED: GLUCOSE 4 GM CHEW TABLET PO PRN (13:30)
[2016-09-27] MEDS ORDERED: DEXTROSE 50% 50 ML SYRINGE IV PRN (13:30)
[2016-09-27] MEDS ORDERED: GLUCAGON FOR INJ 1 MG VIAL (J1610) SC PRN (13:30)
[2016-09-27 15:47] VITALS: BP 162/80
[2016-09-27] MEDS ORDERED: GABAPENTIN 300 MG CAP PO SCH (16:00)
[2016-09-27] MEDS ORDERED: GABAPENTIN 400 MG CAP PO SCH (16:32)
[2016-09-27] MEDS: LevoFLOXacin 250 MG TABLET PO SCH (17:24)
[2016-09-27] MEDS: GABAPENTIN 400 MG CAP PO SCH ×2 (17:25→21:32)
[2016-09-27] MEDS ORDERED: HumaLOG INSULIN (NovoLOG) PER UNIT SC SCH ×2 (17:30→21:00)
[2016-09-27 20:00] VITALS: BP 136/62
[2016-09-27] MEDS: LISINOPRIL 20 MG TAB PO SCH (21:32)
[2016-09-27] MEDS: FERROUS SULFATE 325MG TAB PO SCH (21:32)
[2016-09-27] MEDS: HumaLOG INSULIN (NovoLOG) PER UNIT SC SCH (21:33)
[2016-09-27] MEDS: LEVEMIR (INSULIN DETEMIR) 1 UNITS/0.01ML SC SCH (21:33)
--- NOTE | 2016-09-27 22:13 | PMRHPE ---
DATE OF ADMISSION: 09/27/2016 CHIEF COMPLAINT: Rehabilitation of polyneuropathy and secondary weakness. HISTORY OF PRESENT ILLNESS: Patient is a 66-year-old white female with approximately 40 year history of type 2 diabetes mellitus, who has also had breast cancer and been through chemotherapy. She has sequelae of polyneuropathy from the diabetes and the chemotherapy has been a contributing factor to exacerbating it. Patient had become weaker and was admitted to [facility] on 09/20/2016, with generalized weakness, dysphagia, acute kidney disease , urinary tract infection (UTI), diabetes out of control, iron deficiency anemia, dyslipidemia, and some pneumonia. Patient was evaluated and was also found to have multiple bulging discs as well as compression fracture at L5-6 region with possible right L5 nerve compression, however did not show significant reflex abnormalities or weakness, or the potentially involved bilateral L6 and right L5 that were seen to be in contact with the disc bulge and the narrowed stenotic neural foramina at right L5-6 and L6-7 bilaterally. Patient was started on antimicrobial therapy. She was noted to have a hemoglobin A1c that was severe at 13.[address] showed left lower lobe infiltrate. Patient has participated in physical and occupational therapy but was making fair progress but often noting more limitation due to pain. ALLERGIES: Patient has allergies to PENICILLIN causing swelling. PAST MEDICAL HISTORY: Includes: 1. Asthma. 2. Diabetes. 3. Hypertension. 4. Hypothyroidism. 5. Compound melanocytic nevi with mild cytologic atypia. 6. Infiltrating ductal carcinoma of the left breast status post mastectomy and chemotherapy 5 years ago. PAST SURGICAL HISTORY: Includes: 1. Cholecystectomy. 2. Surgical repair of an incarcerated incisional hernia of the abdomen in December 2015. MEDICATIONS: On admission today include: - aspirin - chlorthalidone - detemir insulin - Protonix - Crestor - Os-Jaya - Drisdol (vitamin D) - Fosamax - levothyroxine sodium - iron sulfate - lispro insulin - lisinopril - Levaquin 250 mg daily for pneumonia - oxycodone 5 mg every 6 hours as needed for moderate to severe pain - gabapentin 400 mg three times a day - tramadol 50 mg every 6 hours as needed - dextrose solution, glucose and glucagon, for hypoglycemia to be used as needed REVIEW OF SYSTEMS: GENERAL: Patient denying fever and chills, just notes the weakness and the pain , especially in the distal upper and lower extremities in more of a neuropathic pattern. HEENT: Negative. PULMONARY: Negative other than the asthma and recent pneumonia causing some need for oxygen with activity. CARDIAC: Negative. GASTROINTESTINAL (GI): Negative. MUSCULOSKELETAL: Noted weakness with some arthritis in the joints, otherwise negative. PSYCHIATRIC: Some flattening of affect. NEUROLOGIC: Dysesthesias of the distal upper and lower extremities and weakness greater distally than proximally. PHYSICAL EXAMINATION: Patient is a short, obese, late middle aged, white female who is alert and oriented to person, place, general time and general situation, who has somewhat concrete speech, but in general is pleasant and cooperative, though appears to be a little bit tired. HEENT: Normocephalic, atraumatic. NECK: Supple. No goiter found on palpation. LUNGS: Clear in all joshi of auscultation with good air movement. CARDIAC: Shows regular rate and rhythm with normal S1, S2 without S3 or S4, murmurs or rubs. 2/4 bilateral radial pulses and fair to good capillary refill under the fingernails. ABDOMEN: Obese. No palpable tenderness or masses with normal bowel sounds in all quadrants. There is some distention of the umbilicus. NEUROLOGIC: Approximately 4+ strength at the shoulders and hips, going to approximately 4 around the knees and elbows, down to 4- to 4 in the hands and feet with notable decrease in light touch and vibration for the distal two- thirds of the legs and from the distal third outward on the forearms into the hands. Deep tendon reflexes are not elicitable in either upper or lower extremities on the right or on the left. Tone, however, is within normal limits. ASSESSMENT/PLAN: Admitting diagnoses: Rehabilitation of polyneuropathy secondary to diabetes mellitus exacerbated by chemotherapy. Patient needs to over train and develop better sense of foot placement and use of adaptive equipment to allow her to be more independent in activities of daily living (ADLs) and mobility. I do feel the patient is willing and able to benefit from a program of physical and occupation therapy, though I will also get cognitive testing and review of dysphagia with speech therapy and patient will be participating in 3 hours of therapy per day. I feel patient is likely to be able to return to home following a short course, approximately 7 days therapy. She also continues treatment of her pneumonia, which is diagnosis number 2, with Levaquin. So, I feel her prognosis is fairly good. Her estimated length of stay is 7 days. ADDITIONAL DIAGNOSES: Hypothyroidism. Continue her levothyroxine. Deep venous thrombosis (DVT) prophylaxis. Will be using thromboembolism deterrent (JAMMIE) hose and mobilization. Diabetes. Will continue to monitor and continue insulin as well as a diabetic diet. Hypertension. Will continue the lisinopril. Hyperlipidemia. Will continue the Crestor. Osteopenia. Will continue weekly Fosamax. POST ADMISSION PHYSICIAN EVALUATION: Patient is consistent with preadmission screening and appreciate the evaluation by neurology. Patient does have weakness and sensory deficits limiting her comfort and mobility as well as activities of daily living (ADLs) and I think she is able, with management of the pain and training and conditioning with physical therapy (PT) and occupational therapy (OT), to improve her overall function and return to home. She is motivated to, and has demonstrated the ability to, do 3 hours per day of therapy in divided sessions. Her prognosis is fair to good and her estimated length of stay is 1 week. Time spent in chart review preparing the history and physical (H and P) and documentation was greater than 70 minutes. RAMESH
[2016-09-28] MEDS: LEVOTHYROXINE 0.15 MG TAB (150 MCG) PO SCH (05:37)
[2016-09-28] MEDS: traMADol 50 MG TAB PO PRN (05:38)
[2016-09-28 06:00] VITALS: BP 129/74
[2016-09-28] MEDS: ALENDRONATE 70 MG TABLET (FOSAMAX) PO SCH (06:37)
[2016-09-28 07:20] LABS: BASO # 0.1 K/mm3 (0.0-0.2); BASO % 0.8 % (0.0-1.0); EOS # 0.3 K/mm3 (0.0-0.50); EOS % 3.5 % (0.0-3.0); LARGE UNSTAINED CELL # 0.1 K/mm3 (0.0-0.4); LARGE UNSTAINED CELL % 1.9 % (0.0-4.0); LYMPH # 1.7 K/mm3 (1.5-4.5); MEAN CORPUSCULAR HEMOGLOBIN 26.7 pg (27.0-33.0); MEAN CORPUSCULAR HGB CONC 33.4 g/dl (32.0-36.5); MONO # 0.4 K/mm3 (0.0-0.8); MONO % 5.3 % (0.0-5.0); NEUTROPHILS % 67.4 % (36.0-66.0); PLATELET COUNT, AUTOMATED 283 k/mm3 (150-450); RED CELL DISTRIBUTION WIDTH 13.5 % (11.5-14.5); WHITE BLOOD COUNT 7.4 K/mm3 (4.0-10.0)
[2016-09-28 07:44] LABS: ALBUMIN 2.9 GM/DL (3.2-5.2); ALBUMIN/GLOBULIN RATIO 0.67 (1.00-1.93); ALKALINE PHOSPHATASE 59 U/L (45-117); ALT/SGPT 16 U/L (12-78); ANION GAP 8 MEQ/L (8-16); AST/SGOT 12 U/L (15-37); BILIRUBIN,TOTAL 0.4 MG/DL (0.2-1.0); BLOOD UREA NITROGEN 25 MG/DL (7-18); CALCIUM LEVEL 8.8 MG/DL (8.8-10.2); CARBON DIOXIDE LEVEL 28 MEQ/L (21-32); CHLORIDE LEVEL 104 MEQ/L (98-107); CREATININE FOR GFR 0.95 MG/DL (0.55-1.02); GLOMERULAR FILTRATION RATE > 60.0 (>45); GLUCOSE, FASTING 171 MG/DL (80-110); POTASSIUM SERUM 3.9 MEQ/L (3.5-5.1); SODIUM LEVEL 140 MEQ/L (136-145); TOTAL PROTEIN 7.2 GM/DL (6.4-8.2)
[2016-09-28] MEDS: PANTOPRAZOLE 40MG TAB (PROTONIX) PO SCH (08:35)
[2016-09-28] MEDS: CHLORTHALIDONE 25 MG TAB PO SCH (08:35)
[2016-09-28] MEDS: ASPIRIN 81 MG ENTERIC TAB PO SCH (08:35)
[2016-09-28] MEDS: CALCIUM/VITAMIN D 500 MG TAB PO SCH (08:35)
[2016-09-28] MEDS: ROSUVASTATIN 10 MG TAB (CRESTOR) PO SCH (08:35)
[2016-09-28] MEDS: FERROUS SULFATE 325MG TAB PO SCH ×2 (08:36→21:36)
[2016-09-28] MEDS: VITAMIN D 50,000 UNITS CAPSULE (ERGOCALCIFEROL 1.25MG) PO SCH (08:36)
[2016-09-28] MEDS: GABAPENTIN 400 MG CAP PO SCH ×3 (08:36→21:36)
[2016-09-28] MEDS: LISINOPRIL 20 MG TAB PO SCH ×2 (08:36→21:36)
[2016-09-28] MEDS: HumaLOG INSULIN (NovoLOG) PER UNIT SC SCH ×4 (08:37→21:00)
[2016-09-28] MEDS: LEVEMIR (INSULIN DETEMIR) 1 UNITS/0.01ML SC SCH ×2 (08:38→21:36)
[2016-09-28] MEDS ORDERED: MIRALAX *UNIT DOSE* 17GM PACKET PO PRN (09:30)
[2016-09-28] MEDS: DOCUSATE SODIUM 100 MG CAP PO SCH ×2 (12:00→21:36)
--- NOTE | 2016-09-28 12:49 | IPNPDOC ---
Subjective Date Seen The patient was seen on 09/28/16. Subjective Chief Complaint/HPI The patient is a 66-year-old female admitted with a reason for visit of Polyneuropathy 2ND To Chemotherapy. Events since last encounter Pt is OOB to chair eating lunch. no new c/o. Chronic pain no change. Pulmonary: Denies: Cough, Dyspnea Cardiovascular: Denies: Chest Pain, Lt Headedness, Orthopnea, Palpitations, Paroxysmal Noc. Dyspnea Gastrointestinal: Denies: Abdominal Pain, Constipation, Diarrhea, Nausea, Vomiting Objective Physical Examination General Exam: Positive: Alert Eye Exam: Positive: PERRLA ENT Exam: Positive: Atraumatic, Mucous membr. moist/pink Neck Exam: Positive: Supple Chest Exam: Positive: Clear to auscultation, Normal air movement Heart Exam: Positive: Normal S1, Normal S2, Rate Normal, Regular Rhythm, Negative: Murmurs, Rubs Abdomen Exam: Positive: Normal bowel sounds, Soft, Negative: Hepatospenomegaly, Tenderness Extremity Exam: Positive: Normal pulses, Negative: Clubbing, Cyanosis, Edema Skin Exam: Positive: Nl turgor and temperature Assessment /Plan Problems (1) Weakness Status: Chronic Problem Text: * Rehab as per ARU (2) Polyneuropathy Status: Chronic Problem Text: * gabapentin * tramadol * Oxycodone for severe pain only. (3) Dysphagia Status: Chronic Problem Text: * ST mech soft diet (4) Anemia Status: Chronic Problem Text: * Fe supplement * Hgb trend upward (5) Urinary retention Status: Resolved (6) Dyslipidemia Status: Chronic Problem Text: * statin (7) Diabetes Status: Chronic Problem Text: * diet * SSI * Levemir (8) H/O malignant neoplasm of breast Status: Acute (9) Hypothyroid Status: Chronic Problem Text: * cont supplement (10) HTN (hypertension) Status: Chronic Response to Treatment: Stable Problem Text: * chlorthalidone * Lisinopril * BP controlled * Serum creatinine 0.95 (11) UTI (urinary tract infection) Status: Acute Problem Text: * Klebsiella. * Plan to Continue Levaquin until 09/30/15. Plan/VTE VTE Prophylaxis Ordered?: Yes (SCD/TEDS) Disposition as per ARU VS, I&O, 24H, Fishbone Vital Signs/I&O Vital Signs Date Time Temp Pulse Resp B/P Pulse Ox O2 Delivery O2 Flow Rate FiO2 09/28/16 09:00 Room Air 09/28/16 08:36 129/74 09/28/16 06:08 18 09/28/16 06:00 98.5 70 97 I&O- Last 24 Hours up to 6 AM 09/28/16 06:00 Intake Total 780 ml Output Total 1100 ml Balance -320 ml Laboratory Data 24H LABS Laboratory Tests 2 09/27/16 19:56: Bedside Glucose (Misc Panel) 285H 09/28/16 06:28: Bedside Glucose (Misc Panel) 176H 09/28/16 06:58: Blood Urea Nitrogen 25H, Creatinine 0.95, Sodium Level 140, Potassium Level 3.9 , Chloride Level 104, Carbon Dioxide Level 28, Calcium Level 8.8, Aspartate Amino Transf (AST/SGOT) 12L, Alanine Aminotransferase (ALT/SGPT) 16, Alkaline Phosphatase 59, Total Bilirubin 0.4, Total Protein 7.2, Albumin 2.9L, Albumin/ Globulin Ratio 0.67L, Anion Gap 8, White Blood Count 7.4, Red Blood Count 3.74L , Hemoglobin 10.0L, Hematocrit 29.9L, Mean Corpuscular Volume 80.0, Mean Corpuscular Hemoglobin 26.7L, Mean Corpuscular Hemoglobin Concent 33.4, Red Cell Distribution Width 13.5, Platelet Count 283, Neutrophils (%) (Auto) 67.4H, Lymphocytes (%) (Auto) 21.0L, Monocytes (%) (Auto) 5.3H, Eosinophils (%) (Auto) 3.5H, Basophils (%) (Auto) 0.8, Neutrophils # (Auto) 5.0, Lymphocytes # (Auto) 1.7, Monocytes # (Auto) 0.4, Eosinophils # (Auto) 0.3, Basophils # (Auto) 0.1, Glomerular Filtration Rate > 60.0, Large Unclassified Cells # 0.1, Large Unclassified Cells % 1.9 09/28/16 11:48: Bedside Glucose (Misc Panel) 223H CBC/BMP Laboratory Tests 09/28/16 06:58 Calcium Level 8.8, Aspartate Amino Transf (AST/SGOT) 12 L, Alanine Aminotransferase (ALT/SGPT) 16, Alkaline Phosphatase 59, Total Bilirubin 0.4, Total Protein 7.2, Albumin 2.9 L, Red Blood Count 3.74 L, Mean Corpuscular Volume 80.0, Mean Corpuscular Hemoglobin 26.7 L, Mean Corpuscular Hemoglobin Concent 33.4, Red Cell Distribution Width 13.5, Neutrophils (%) (Auto) 67.4 H, Lymphocytes (%) (Auto) 21.0 L, Monocytes (%) (Auto) 5.3 H, Eosinophils (%) (Auto ) 3.5 H, Basophils (%) (Auto) 0.8, Neutrophils # (Auto) 5.0, Lymphocytes # (Auto ) 1.7, Monocytes # (Auto) 0.4, Eosinophils # (Auto) 0.3, Basophils # (Auto) 0.1 Michelle Adams Sep 28, 2016 12:49
--- NOTE | 2016-09-28 13:46 | IPNPDOC ---
[facility] Progress Note DATE OF SERVICE: 09/28/2016 DATE OF ADMISSION: Sep 27, 2016 at 15:50 INPATIENT REHABILITATION ADMISSION DAY: #1 SUBJECTIVE: Patient is a 66-year-old white female with polyneuropathy caused weakness. Patient notes continuing to have pain and trouble with mobility and ADLs she has started into physical therapy, occupational therapy and will be starting speech therapy. Patient not yet knowing changes from gabapentin. She notes no fever chills or other general problems ALLERGIES: See Below MEDICATIONS: Reviewed, see below. OBJECTIVE: VITAL SIGNS: Please see below. PHYSICAL EXAMINATION: GENERAL: Overweight late middle-age white female, with flattening of affect, who is alert and oriented [address] reporter and situation limited in her orientation. HEENT: Normocephalic/atraumatic. CARDIOVASCULAR: Regular rate and rhythm with normal S1-S2, 2 out 4 radial pulses bilaterally. Slightly delayed reperfusion in the nailbeds of the hands. LUNGS: All joshi clear to auscultation. ABDOMEN: Obese, non tender, with bowel sounds normal in all quadrants. NEUROLOGICAL: Unchanged from last night in the H&P. LABORATORY DATA: Reviewed. Please see below. MICROBIOLOGY: Please see below. DVT prophylaxis ordered?: JAMMIE stoddard. ASSESSMENT AND PLAN: 1. Rehabilitation of polyneuropathy: First day of THERAPY receiving with physical and occupation therapy evaluations with speech therapy to follow. We' ll focus on trying to decrease pain to make it easier for patient to advance in ambulation, mobility, and ADLs. 2. Arthritis/OA: I will ordered some Voltaren gel for patient rub into her shoulder and lateral knee upper leg on the right where she complained of pain today. 3. Diabetes: Fasting blood sugar 171 this morning. Hospitalists to assist with management to optimize diabetic care. TIME SPENT: Chart Review, examination and documentation greater than 25 minutes. Allergies Coded Allergies: Penicillins (Verified Allergy, Intermediate, "FLIPS OUT", HIVES, 09/18/12) Penicillins Cross Reactors (Verified Allergy, Intermediate, "FLIPS OUT", HIVES, 09/18/12) Vital Signs Vital Signs Date Time Temp Pulse Resp B/P Pulse Ox O2 Delivery O2 Flow Rate FiO2 09/28/16 09:00 Room Air 09/28/16 08:36 129/74 09/28/16 06:08 18 09/28/16 06:00 98.5 70 97 Laboratory Data CBC/BMP Laboratory Tests 09/28/16 06:58 Calcium Level 8.8, Aspartate Amino Transf (AST/SGOT) 12 L, Alanine Aminotransferase (ALT/SGPT) 16, Alkaline Phosphatase 59, Total Bilirubin 0.4, Total Protein 7.2, Albumin 2.9 L, Red Blood Count 3.74 L, Mean Corpuscular Volume 80.0, Mean Corpuscular Hemoglobin 26.7 L, Mean Corpuscular Hemoglobin Concent 33.4, Red Cell Distribution Width 13.5, Neutrophils (%) (Auto) 67.4 H, Lymphocytes (%) (Auto) 21.0 L, Monocytes (%) (Auto) 5.3 H, Eosinophils (%) (Auto ) 3.5 H, Basophils (%) (Auto) 0.8, Neutrophils # (Auto) 5.0, Lymphocytes # (Auto ) 1.7, Monocytes # (Auto) 0.4, Eosinophils # (Auto) 0.3, Basophils # (Auto) 0.1 Labs 24H Laboratory Tests 2 09/27/16 19:56: Bedside Glucose (Misc Panel) 285H 09/28/16 06:28: Bedside Glucose (Misc Panel) 176H 09/28/16 06:58: Blood Urea Nitrogen 25H, Creatinine 0.95, Sodium Level 140, Potassium Level 3.9 , Chloride Level 104, Carbon Dioxide Level 28, Calcium Level 8.8, Aspartate Amino Transf (AST/SGOT) 12L, Alanine Aminotransferase (ALT/SGPT) 16, Alkaline Phosphatase 59, Total Bilirubin 0.4, Total Protein 7.2, Albumin 2.9L, Albumin/ Globulin Ratio 0.67L, Anion Gap 8, White Blood Count 7.4, Red Blood Count 3.74L , Hemoglobin 10.0L, Hematocrit 29.9L, Mean Corpuscular Volume 80.0, Mean Corpuscular Hemoglobin 26.7L, Mean Corpuscular Hemoglobin Concent 33.4, Red Cell Distribution Width 13.5, Platelet Count 283, Neutrophils (%) (Auto) 67.4H, Lymphocytes (%) (Auto) 21.0L, Monocytes (%) (Auto) 5.3H, Eosinophils (%) (Auto) 3.5H, Basophils (%) (Auto) 0.8, Neutrophils # (Auto) 5.0, Lymphocytes # (Auto) 1.7, Monocytes # (Auto) 0.4, Eosinophils # (Auto) 0.3, Basophils # (Auto) 0.1, Glomerular Filtration Rate > 60.0, Large Unclassified Cells # 0.1, Large Unclassified Cells % 1.9 09/28/16 11:48: Bedside Glucose (Misc Panel) 223H Current Medications Current Medications Current Medications Alendronate Sodium (Fosamax) 70 mg Tu@07 PO Last administered on 09/28/16 06: 37; Start 09/28/16 at 07:00; Stop 10/28/16 at 06:59 Aspirin (Ecotrin) 81 mg DAILY PO Last administered on 09/28/16 08:35; Start at 09:00; Stop 10/28/16 at 08:59 Calcium/Vitamin D (Oscal D) 500 mg QAM PO Last administered on 09/28/16 08:35 ; Start 09/28/16 at 09:00; Stop 10/28/16 at 08:59 Chlorthalidone (Hygroton) 25 mg DAILY PO Last administered on 09/28/16 08:35; Start 09/28/16 at 09:00; Stop 10/28/16 at 08:59 Dextrose (Dextrose 50%) 25 ml ASDIRECTED PRN IV SEE LABEL COMMENTS; Start 09/27 at 13:30; Stop 10/27/16 at 13:29 Docusate Sodium (Colace) 100 mg BID PO Last administered on 09/28/16 12:00; Start 09/28/16 at 09:00; Stop 10/28/16 at 08:59 Ferrous Sulfate (Ferrous Sulfate) 325 mg BID PO Last administered on 09/28/16 08:36; Start 09/27/16 at 21:00; Stop 10/27/16 at 20:59 Gabapentin (Neurontin) 400 mg TID PO ; Start 09/27/16 at 16:00; Stop 09/27/16 at 16:32; Status DC Gabapentin (Neurontin) 400 mg TID PO Last administered on 09/28/16 08:36; Start 09/27/16 at 16:00; Stop 10/27/16 at 15:59 Gabapentin (Neurontin) 400 mg TID PO ; Start 09/27/16 at 16:32; Stop 09/27/16 at 17:22; Status DC Glucagon (Glucagon) 1 mg ASDIRECTED PRN SC SEE LABEL COMMENTS; Start 09/27/16 at 13:30; Stop 10/27/16 at 13:29 Glucose (Glucose) 16 GM ASDIRECTED PRN PO SEE LABEL COMMENTS; Start 09/27/16 at 13:30; Stop 10/27/16 at 13:29 Home Med (Med Rec Complete!) ASDIRECTED XX ; Start 09/27/16 at 18:00; Stop 04/05 at 18:00; Status DC Insulin Detemir (Levemir Insulin) 20 units QAM SC Last administered on 08:38; Start 09/28/16 at 09:00; Stop 10/28/16 at 08:59 Insulin Detemir (Levemir Insulin) 30 units QHS SC Last administered on 21:33; Start 09/27/16 at 21:00; Stop 10/27/16 at 20:59 Insulin Human Lispro (HumaLOG INSULIN) AC SC Last administered on 09/27/16 17 :23; Start 09/27/16 at 17:30; Stop 09/27/16 at 20:51; Status DC Insulin Human Lispro (HumaLOG INSULIN) QHS SC ; Start 09/27/16 at 21:00; Stop 09/27/16 at 21:00; Status DC Insulin Human Lispro (HumaLOG INSULIN) See Protocol Table AC SC Last administered on 09/28/16 12:00; Start 09/28/16 at 07:30; Stop 10/28/16 at 07:29 Insulin Human Lispro (HumaLOG INSULIN) See Protocol Table QHS SC Last administered on 09/27/16 21:33; Start 09/27/16 at 21:00; Stop 10/27/16 at 20:59 Levofloxacin (Levaquin) 250 mg DAILY@18 PO Last administered on 09/27/16 17:24 ; Start 09/27/16 at 18:00; Stop 10/04/16 at 17:59 Levothyroxine Sodium (Synthroid) 0.3 mg DAILY@06 PO Last administered on 05:37; Start 09/28/16 at 06:00; Stop 10/28/16 at 05:59 Lisinopril (Prinivil) 20 mg BID PO Last administered on 09/28/16 08:36; Start 09/27/16 at 21:00; Stop 10/27/16 at 20:59 Magnesium Hydroxide (Milk Of Magnesia) 30 ml BIDP PRN PO CONSTIPATION; Start at 09:30; Stop 10/28/16 at 09:29 Oxycodone HCl (Roxicodone, Oxyir) 5 mg Q6HP PRN PO PAIN SCALE 6-10; Start 09/27 at 17:15; Stop 10/04/16 at 17:14 Pantoprazole Sodium (Protonix) 40 mg DAILY PO Last administered on 09/28/16 08 :35; Start 09/28/16 at 09:00; Stop 10/28/16 at 08:59 Polyethylene Glycol (Miralax) 1 pkt DAILYPRN PRN PO CONSTIPATION; Start at 09:30; Stop 10/28/16 at 09:29 Rosuvastatin Calcium (Crestor) 40 mg DAILY PO Last administered on 09/28/16 08 :35; Start 09/28/16 at 09:00; Stop 10/28/16 at 08:59 Tramadol HCl (Ultram) 50 mg Q6HP PRN PO MODERATE PAIN (PS 5-7) Last administered on 09/28/16 05:38; Start 09/27/16 at 14:30; Stop 10/04/16 at 14:29 Vitamin D (Drisdol) 50,000 units @09 PO Last administered on 09/28/16 08:36 ; Start 09/28/16 at 09:00; Stop 10/28/16 at 08:59 FLORIN GUSMAN MD Sep 28, 2016 13:46
[2016-09-28 14:30] VITALS: BP 140/80
[2016-09-28] MEDS: MELOXICAM (MOBIC) 7.5 MG TAB PO SCH (15:06)
[2016-09-28] MEDS: LevoFLOXacin 250 MG TABLET PO SCH (17:38)
[2016-09-28 20:00] VITALS: BP 157/73
[2016-09-29] MEDS: LEVOTHYROXINE 0.15 MG TAB (150 MCG) PO SCH (05:49)
[2016-09-29 06:00] VITALS: BP 94/51
[2016-09-29 06:14] VITALS: BP 110/60
[2016-09-29] MEDS: HumaLOG INSULIN (NovoLOG) PER UNIT SC SCH ×4 (08:14→20:53)
[2016-09-29] MEDS: LISINOPRIL 20 MG TAB PO SCH ×2 (09:00→20:46)
[2016-09-29] MEDS: DOCUSATE SODIUM 100 MG CAP PO SCH ×2 (09:25→20:46)
[2016-09-29] MEDS: FERROUS SULFATE 325MG TAB PO SCH ×2 (09:25→20:46)
[2016-09-29] MEDS: ROSUVASTATIN 10 MG TAB (CRESTOR) PO SCH (09:26)
[2016-09-29] MEDS: CALCIUM/VITAMIN D 500 MG TAB PO SCH (09:26)
[2016-09-29] MEDS: GABAPENTIN 400 MG CAP PO SCH ×3 (09:27→20:46)
[2016-09-29] MEDS: MELOXICAM (MOBIC) 7.5 MG TAB PO SCH (09:27)
[2016-09-29] MEDS: PANTOPRAZOLE 40MG TAB (PROTONIX) PO SCH (09:27)
[2016-09-29] MEDS: CHLORTHALIDONE 25 MG TAB PO SCH (09:28)
[2016-09-29] MEDS: ASPIRIN 81 MG ENTERIC TAB PO SCH (09:28)
[2016-09-29] MEDS: LEVEMIR (INSULIN DETEMIR) 1 UNITS/0.01ML SC SCH ×2 (09:29→20:47)
--- NOTE | 2016-09-29 10:03 | IPNPDOC ---
Crown Wheel Assembler Progress Note DATE OF SERVICE: 09/29/2016 DATE OF ADMISSION: Sep 27, 2016 at 15:50 INPATIENT REHABILITATION ADMISSION DAY: #2 SUBJECTIVE: Patient is a 66-year-old white female with polyneuropathy and secondary weakness/coordination problems. Patient reports some ongoing back pain but it is mild in intensity otherwise is feeling a bit tired. ALLERGIES: See Below MEDICATIONS: Reviewed, see below. OBJECTIVE: VITAL SIGNS: Please see below. PHYSICAL EXAMINATION: GENERAL: Overweight middle aged white female sitting up in chair in no acute distress. She is oriented to person and place. She is partially oriented to time and situation. She continues to have flattening of mood but is more engaging. HEENT: Normocephalic/atraumatic. Poor dentation. CARDIOVASCULAR: Regular rate and rhythm with normal S1 and S2 and 2 out of 4 radial pulses. LUNGS: All joshi clear to auscultation. ABDOMEN: Obese and nontender with bowel sounds normal in all quadrants. NEUROLOGICAL: Decreased sensorium in the distal upper and lower extremities unchanged from prior exam. LABORATORY DATA: Reviewed. Please see below. MICROBIOLOGY: Please see below. IMAGING: No new DVT prophylaxis ordered?: Aspirin 81 mg per day and JAMMIE hose ASSESSMENT AND PLAN: 1. Rehabilitation of polyneuropathy: Proceeding with PT OT and speech-language evaluations and training. Patient with some cognitive issues that impact on her physical training. We will review these more at team rounds tomorrow. 2. Hypertension: Patient with low systolic blood pressure at times so lisinopril adjusted to be held accordingly. 3. Anemia: Stable. 4. Diabetes: Patient with some blood sugar checks running up to mid 200s. Hospitalists will adjust treatment as appropriate. Patient with 2 Gatorade bottles by her chair. 1A G2 with low carbohydrates and sugar alcohol substitutions, but the other one with regular sugar and 36 g of carbohydrate. Patient aware of the differences until pointed out by me. Further diabetic education may be appropriate for her. TIME SPENT: Chart Review, examination and documentation greater than 25 minutes. Allergies Coded Allergies: Penicillins (Verified Allergy, Intermediate, "FLIPS OUT", HIVES, 09/18/12) Penicillins Cross Reactors (Verified Allergy, Intermediate, "FLIPS OUT", HIVES, 09/18/12) Vital Signs Vital Signs Date Time Temp Pulse Resp B/P Pulse Ox O2 Delivery O2 Flow Rate FiO2 09/29/16 08:18 Room Air 09/29/16 06:14 110/60 09/29/16 06:00 98.0 63 17 100 Laboratory Data Labs 24H Laboratory Tests 2 09/28/16 11:48: Bedside Glucose (Misc Panel) 223H 09/28/16 16:41: Bedside Glucose (Misc Panel) 267H 09/28/16 19:23: Bedside Glucose (Misc Panel) 245H 09/29/16 06:33: Bedside Glucose (Misc Panel) 193H Current Medications Current Medications Current Medications Alendronate Sodium (Fosamax) 70 mg Tu@07 PO Last administered on 09/28/16 06: 37; Start 09/28/16 at 07:00; Stop 10/28/16 at 06:59 Aspirin (Ecotrin) 81 mg DAILY PO Last administered on 09/29/16 09:28; Start at 09:00; Stop 10/28/16 at 08:59 Calcium/Vitamin D (Oscal D) 500 mg QAM PO Last administered on 09/29/16 09:26 ; Start 09/28/16 at 09:00; Stop 10/28/16 at 08:59 Chlorthalidone (Hygroton) 25 mg DAILY PO Last administered on 09/29/16 09:28; Start 09/28/16 at 09:00; Stop 10/28/16 at 08:59 Dextrose (Dextrose 50%) 25 ml ASDIRECTED PRN IV SEE LABEL COMMENTS; Start 09/27 at 13:30; Stop 10/27/16 at 13:29 Docusate Sodium (Colace) 100 mg BID PO Last administered on 09/29/16 09:25; Start 09/28/16 at 09:00; Stop 10/28/16 at 08:59 Ferrous Sulfate (Ferrous Sulfate) 325 mg BID PO Last administered on 09/29/16 09:25; Start 09/27/16 at 21:00; Stop 10/27/16 at 20:59 Gabapentin (Neurontin) 400 mg TID PO ; Start 09/27/16 at 16:00; Stop 09/27/16 at 16:32; Status DC Gabapentin (Neurontin) 400 mg TID PO Last administered on 09/29/16 09:27; Start 09/27/16 at 16:00; Stop 10/27/16 at 15:59 Gabapentin (Neurontin) 400 mg TID PO ; Start 09/27/16 at 16:32; Stop 09/27/16 at 17:22; Status DC Glucagon (Glucagon) 1 mg ASDIRECTED PRN SC SEE LABEL COMMENTS; Start 09/27/16 at 13:30; Stop 10/27/16 at 13:29 Glucose (Glucose) 16 GM ASDIRECTED PRN PO SEE LABEL COMMENTS; Start 09/27/16 at 13:30; Stop 10/27/16 at 13:29 Home Med (Med Rec Complete!) ASDIRECTED XX ; Start 09/27/16 at 18:00; Stop 04/05 at 18:00; Status DC Insulin Detemir (Levemir Insulin) 20 units QAM SC Last administered on 09:29; Start 09/28/16 at 09:00; Stop 10/28/16 at 08:59 Insulin Detemir (Levemir Insulin) 30 units QHS SC Last administered on 21:36; Start 09/27/16 at 21:00; Stop 10/27/16 at 20:59 Insulin Human Lispro (HumaLOG INSULIN) AC SC Last administered on 09/27/16 17 :23; Start 09/27/16 at 17:30; Stop 09/27/16 at 20:51; Status DC Insulin Human Lispro (HumaLOG INSULIN) QHS SC ; Start 09/27/16 at 21:00; Stop 09/27/16 at 21:00; Status DC Insulin Human Lispro (HumaLOG INSULIN) See Protocol Table AC SC Last administered on 09/29/16 08:14; Start 09/28/16 at 07:30; Stop 10/28/16 at 07:29 Insulin Human Lispro (HumaLOG INSULIN) See Protocol Table QHS SC Last administered on 09/27/16 21:33; Start 09/27/16 at 21:00; Stop 10/27/16 at 20:59 Levofloxacin (Levaquin) 250 mg DAILY@18 PO Last administered on 09/28/16 17:38 ; Start 09/27/16 at 18:00; Stop 10/04/16 at 17:59 Levothyroxine Sodium (Synthroid) 0.3 mg DAILY@06 PO Last administered on 05:49; Start 09/28/16 at 06:00; Stop 10/28/16 at 05:59 Lisinopril (Prinivil) 20 mg BID PO Last administered on 09/28/16 21:36; Start 09/27/16 at 21:00; Stop 10/27/16 at 20:59 Magnesium Hydroxide (Milk Of Magnesia) 30 ml BIDP PRN PO CONSTIPATION; Start at 09:30; Stop 10/28/16 at 09:29 Meloxicam (Mobic) 7.5 mg DAILY PO Last administered on 09/29/16 09:27; Start 09/28/16 at 09:00; Stop 10/28/16 at 08:59 Oxycodone HCl (Roxicodone, Oxyir) 5 mg Q6HP PRN PO PAIN SCALE 6-10; Start 09/27 at 17:15; Stop 10/04/16 at 17:14 Pantoprazole Sodium (Protonix) 40 mg DAILY PO Last administered on 09/29/16 09 :27; Start 09/28/16 at 09:00; Stop 10/28/16 at 08:59 Polyethylene Glycol (Miralax) 1 pkt DAILYPRN PRN PO CONSTIPATION; Start at 09:30; Stop 10/28/16 at 09:29 Rosuvastatin Calcium (Crestor) 40 mg DAILY PO Last administered on 09/29/16 09 :26; Start 09/28/16 at 09:00; Stop 10/28/16 at 08:59 Tramadol HCl (Ultram) 50 mg Q6HP PRN PO MODERATE PAIN (PS 5-7) Last administered on 09/28/16 05:38; Start 09/27/16 at 14:30; Stop 10/04/16 at 14:29 Vitamin D (Drisdol) 50,000 units Tu@09 PO Last administered on 09/28/16 08:36 ; Start 09/28/16 at 09:00; Stop 10/28/16 at 08:59 FLORIN GUSMAN MD Sep 29, 2016 10:03
[2016-09-29] MEDS: oxyCODONE 5MG TAB PO PRN (13:56)
--- NOTE | 2016-09-29 13:56 | IPNPDOC ---
Subjective Date Seen The patient was seen on 09/29/16. Subjective Chief Complaint/HPI The patient is a 66-year-old female admitted with a reason for visit of Polyneuropathy 2ND To Chemotherapy. Events since last encounter Pt states feels tired from therapy but no other complaints. Objective Physical Examination General Exam: Positive: Alert Eye Exam: Positive: PERRLA ENT Exam: Positive: Atraumatic, Mucous membr. moist/pink Neck Exam: Positive: Supple Chest Exam: Positive: Clear to auscultation, Normal air movement Heart Exam: Positive: Normal S1, Normal S2, Rate Normal, Regular Rhythm, Negative: Murmurs, Rubs Abdomen Exam: Positive: Normal bowel sounds, Soft, Negative: Hepatospenomegaly, Tenderness Extremity Exam: Positive: Normal pulses, Negative: Clubbing, Cyanosis, Edema Skin Exam: Positive: Nl turgor and temperature Assessment /Plan Problems (1) Weakness Status: Chronic Problem Text: * Rehab as per ARU (2) Polyneuropathy Status: Chronic Problem Text: * gabapentin * tramadol * Oxycodone for severe pain only. (3) Dysphagia Status: Chronic Problem Text: * [facility] soft diet (4) Anemia Status: Chronic Problem Text: * Fe supplement * Hgb trend upward (5) Urinary retention Status: Resolved (6) Dyslipidemia Status: Chronic Problem Text: * statin (7) Diabetes Status: Chronic Problem Text: * diet * SSI * Levemir (8) H/O malignant neoplasm of breast Status: Chronic (9) Hypothyroid Status: Chronic Problem Text: * cont supplement (10) HTN (hypertension) Status: Chronic Response to Treatment: Stable Problem Text: * chlorthalidone * Lisinopril * BP controlled * Serum creatinine 0.95 (11) UTI (urinary tract infection) Status: Acute Problem Text: * Klebsiella. * Plan to Continue Levaquin until 09/30/15. Plan/VTE VTE Prophylaxis Ordered?: Yes (SCD/TEDS) VS, I&O, 24H, Fishbone Vital Signs/I&O Vital Signs Date Time Temp Pulse Resp B/P Pulse Ox O2 Delivery O2 Flow Rate FiO2 09/29/16 09:00 94/56 09/29/16 08:18 Room Air 09/29/16 06:00 98.0 63 17 100 I&O- Last 24 Hours up to 6 AM 09/29/16 06:00 Intake Total 1440 ml Output Total 500 ml Balance 940 ml Laboratory Data 24H LABS Laboratory Tests 2 09/28/16 16:41: Bedside Glucose (Misc Panel) 267H 09/28/16 19:23: Bedside Glucose (Misc Panel) 245H 09/29/16 06:33: Bedside Glucose (Misc Panel) 193H 09/29/16 12:05: Bedside Glucose (Misc Panel) 249H Michelle Adams Sep 29, 2016 13:56
[2016-09-29 14:00] VITALS: BP 133/67
[2016-09-29] MEDS: LevoFLOXacin 250 MG TABLET PO SCH (17:41)
[2016-09-29 20:30] VITALS: BP 133/63
[2016-09-30 05:09] VITALS: BP 103/56
[2016-09-30] MEDS: LEVOTHYROXINE 0.15 MG TAB (150 MCG) PO SCH (05:28)
[2016-09-30] MEDS: HumaLOG INSULIN (NovoLOG) PER UNIT SC SCH ×4 (07:47→21:18)
[2016-09-30] MEDS: LISINOPRIL 20 MG TAB PO SCH ×2 (09:00→21:17)
[2016-09-30] MEDS: LEVEMIR (INSULIN DETEMIR) 1 UNITS/0.01ML SC SCH ×2 (09:09→21:18)
[2016-09-30] MEDS: GABAPENTIN 400 MG CAP PO SCH ×2 (09:10→15:47)
[2016-09-30] MEDS: ROSUVASTATIN 10 MG TAB (CRESTOR) PO SCH (09:10)
[2016-09-30] MEDS: DOCUSATE SODIUM 100 MG CAP PO SCH ×2 (09:11→21:17)
[2016-09-30] MEDS: FERROUS SULFATE 325MG TAB PO SCH ×2 (09:11→21:17)
[2016-09-30] MEDS: CALCIUM/VITAMIN D 500 MG TAB PO SCH (09:11)
[2016-09-30] MEDS: PANTOPRAZOLE 40MG TAB (PROTONIX) PO SCH (09:12)
[2016-09-30] MEDS: MELOXICAM (MOBIC) 7.5 MG TAB PO SCH (09:13)
[2016-09-30] MEDS: CHLORTHALIDONE 25 MG TAB PO SCH (09:13)
[2016-09-30] MEDS: ASPIRIN 81 MG ENTERIC TAB PO SCH (09:13)
[2016-09-30] MEDS: oxyCODONE 5MG TAB PO PRN ×2 (09:14→15:48)
--- NOTE | 2016-09-30 12:52 | IPNPDOC ---
Subjective Date Seen The patient was seen on 09/30/16. Subjective Chief Complaint/HPI The patient is a 66-year-old female admitted with a reason for visit of Polyneuropathy 2ND To Chemotherapy. Events since last encounter Pt is OOB to chair. States she feels like she is getting stronger. no new issues. ENT: Denies: Dysphagia, Ear Pain, Head Aches Pulmonary: Denies: Cough, Dyspnea Cardiovascular: Denies: Chest Pain, Lt Headedness, Orthopnea, Palpitations, Paroxysmal Noc. Dyspnea Gastrointestinal: Denies: Abdominal Pain, Constipation, Diarrhea, Nausea, Vomiting Objective Physical Examination General Exam: Positive: Alert Eye Exam: Positive: PERRLA ENT Exam: Positive: Atraumatic, Mucous membr. moist/pink Neck Exam: Positive: Supple Chest Exam: Positive: Clear to auscultation, Normal air movement Heart Exam: Positive: Normal S1, Normal S2, Rate Normal, Regular Rhythm, Negative: Murmurs, Rubs Abdomen Exam: Positive: Normal bowel sounds, Soft, Negative: Hepatospenomegaly, Tenderness Extremity Exam: Positive: Normal pulses, Negative: Clubbing, Cyanosis, Edema Skin Exam: Positive: Nl turgor and temperature Assessment /Plan Problems (1) Weakness Status: Chronic Problem Text: * Rehab as per ARU (2) Polyneuropathy Status: Chronic Problem Text: * gabapentin * tramadol * Oxycodone for severe pain only. (3) Dysphagia Status: Chronic Problem Text: * ST [facility] soft diet (4) Anemia Status: Chronic Problem Text: * Fe supplement * Hgb trend upward (5) Urinary retention Status: Resolved (6) Dyslipidemia Status: Chronic Problem Text: * statin (7) Diabetes Status: Chronic Problem Text: * diet * SSI * Levemir (8) H/O malignant neoplasm of breast Status: Chronic (9) Hypothyroid Status: Chronic Problem Text: * cont supplement (10) HTN (hypertension) Status: Chronic Response to Treatment: Stable Problem Text: * chlorthalidone * Lisinopril * BP controlled * Serum creatinine 0.95 (11) UTI (urinary tract infection) Status: Acute Problem Text: * Klebsiella. * Levaquin completed 09/30/15. Plan/VTE VTE Prophylaxis Ordered?: Yes (SCD/TEDS) VS, I&O, 24H, Fishbone Vital Signs/I&O Vital Signs Date Time Temp Pulse Resp B/P Pulse Ox O2 Delivery O2 Flow Rate FiO2 09/30/16 09:14 20 09/30/16 09:00 102/60 09/30/16 07:45 Room Air 09/30/16 05:09 98.3 65 98 I&O- Last 24 Hours up to 6 AM 09/30/16 06:00 Intake Total 2040 ml Output Total 0 ml Balance 2040 ml Laboratory Data 24H LABS Laboratory Tests 2 09/29/16 16:37: Bedside Glucose (Misc Panel) 290H 09/29/16 19:54: Bedside Glucose (Misc Panel) 352H 09/30/16 07:30: Bedside Glucose (Misc Panel) 151H 09/30/16 11:36: Bedside Glucose (Misc Panel) 192H Michelle Adams Sep 30, 2016 12:52
[2016-09-30 15:35] VITALS: BP 110/60
--- NOTE | 2016-09-30 17:06 | IPNPDOC ---
Laborer/Key Man Progress Note DATE OF SERVICE: 09/30/2016 DATE OF ADMISSION: Sep 27, 2016 at 15:50 INPATIENT REHABILITATION ADMISSION DAY: #3 SUBJECTIVE: Patient is a 66-year-old white female with polyneuropathy and type 2 diabetes. Pain under better control though some aching in the back but no fever chills or other problems. ALLERGIES: See Below MEDICATIONS: Reviewed, see below. OBJECTIVE: VITAL SIGNS: Please see below. PHYSICAL EXAMINATION: GENERAL: Overweight late middle-age white female in very mild mild muscle skeletal distress who is alert and well oriented. HEENT: Normocephalic/atraumatic. CARDIOVASCULAR: Regular rate and rhythm with normal S1 and S2 and 2 out 4 radial pulses LUNGS: All joshi clear to auscultation. ABDOMEN: Obese nontender with normal bowel sounds in all quadrants. NEUROLOGICAL: Stocking glove neuropathy distal two thirds of legs and feet and distal third of the forearm in the hands with diminished strength. Patient continues to have some flattening of affect. SKIN: Intact LABORATORY DATA: Reviewed. Please see below. MICROBIOLOGY: Please see below. IMAGING: No new DVT prophylaxis ordered?: Yes ASSESSMENT AND PLAN: 1. Rehabilitation of polyneuropathy: Patient is making progress however needs a lot of motivation and seems to have variable effort. We will try to focus patient on the importance of working with the home care people which apparently was a problem before this admission and seeing compliant with her diabetes care which led to this complication. Estimated length of stay 7 days. 2. Diabetes need to do further counseling and education patient to intensive order extra food. 3. Pain management patient is benefiting from the increase appears in the gabapentin and at this point needs to start to decrease the oxycodone usage. TIME SPENT: Chart Review, examination and documentation including team conference greater than 35 minutes. Allergies Coded Allergies: Penicillins (Verified Allergy, Intermediate, "FLIPS OUT", HIVES, 09/18/12) Penicillins Cross Reactors (Verified Allergy, Intermediate, "FLIPS OUT", HIVES, 09/18/12) Vital Signs Vital Signs Date Time Temp Pulse Resp B/P Pulse Ox O2 Delivery O2 Flow Rate FiO2 09/30/16 15:48 16 09/30/16 15:35 98.1 74 110/60 100 Room Air Laboratory Data Labs 24H Laboratory Tests 2 09/29/16 19:54: Bedside Glucose (Misc Panel) 352H 09/30/16 07:30: Bedside Glucose (Misc Panel) 151H 09/30/16 11:36: Bedside Glucose (Misc Panel) 192H Current Medications Current Medications Current Medications Alendronate Sodium (Fosamax) 70 mg @07 PO Last administered on 09/28/16 06: 37; Start 09/28/16 at 07:00; Stop 10/28/16 at 06:59 Aspirin (Ecotrin) 81 mg DAILY PO Last administered on 09/30/16 09:13; Start at 09:00; Stop 10/28/16 at 08:59 Calcium/Vitamin D (Oscal D) 500 mg QAM PO Last administered on 09/30/16 09:11 ; Start 09/28/16 at 09:00; Stop 10/28/16 at 08:59 Chlorthalidone (Hygroton) 25 mg DAILY PO Last administered on 09/30/16 09:13; Start 09/28/16 at 09:00; Stop 10/28/16 at 08:59 Dextrose (Dextrose 50%) 25 ml ASDIRECTED PRN IV SEE LABEL COMMENTS; Start 09/27 at 13:30; Stop 10/27/16 at 13:29 Docusate Sodium (Colace) 100 mg BID PO Last administered on 09/30/16 09:11; Start 09/28/16 at 09:00; Stop 10/28/16 at 08:59 Ferrous Sulfate (Ferrous Sulfate) 325 mg BID PO Last administered on 09/30/16 09:11; Start 09/27/16 at 21:00; Stop 10/27/16 at 20:59 Gabapentin (Neurontin) 400 mg TID PO ; Start 09/27/16 at 16:00; Stop 09/27/16 at 16:32; Status DC Gabapentin (Neurontin) 400 mg TID PO Last administered on 09/30/16 15:47; Start 09/27/16 at 16:00; Stop 10/27/16 at 15:59 Gabapentin (Neurontin) 400 mg TID PO ; Start 09/27/16 at 16:32; Stop 09/27/16 at 17:22; Status DC Glucagon (Glucagon) 1 mg ASDIRECTED PRN SC SEE LABEL COMMENTS; Start 09/27/16 at 13:30; Stop 10/27/16 at 13:29 Glucose (Glucose) 16 GM ASDIRECTED PRN PO SEE LABEL COMMENTS; Start 09/27/16 at 13:30; Stop 10/27/16 at 13:29 Home Med (Med Rec Complete!) ASDIRECTED XX ; Start 09/27/16 at 18:00; Stop 04/05 at 18:00; Status DC Insulin Detemir (Levemir Insulin) 20 units QAM SC Last administered on 09:09; Start 09/28/16 at 09:00; Stop 10/28/16 at 08:59 Insulin Detemir (Levemir Insulin) 30 units QHS SC Last administered on 20:47; Start 09/27/16 at 21:00; Stop 10/27/16 at 20:59 Insulin Human Lispro (HumaLOG INSULIN) AC SC Last administered on 09/27/16 17 :23; Start 09/27/16 at 17:30; Stop 09/27/16 at 20:51; Status DC Insulin Human Lispro (HumaLOG INSULIN) QHS SC ; Start 09/27/16 at 21:00; Stop 09/27/16 at 21:00; Status DC Insulin Human Lispro (HumaLOG INSULIN) See Protocol Table AC SC Last administered on 09/30/16 12:00; Start 09/28/16 at 07:30; Stop 10/28/16 at 07:29 Insulin Human Lispro (HumaLOG INSULIN) See Protocol Table QHS SC Last administered on 09/29/16 20:53; Start 09/27/16 at 21:00; Stop 10/27/16 at 20:59 Levofloxacin (Levaquin) 250 mg DAILY@18 PO Last administered on 09/29/16 17:41 ; Start 09/27/16 at 18:00; Stop 09/30/16 at 12:50; Status DC Levothyroxine Sodium (Synthroid) 0.3 mg DAILY@06 PO Last administered on 05:28; Start 09/28/16 at 06:00; Stop 10/28/16 at 05:59 Lisinopril (Prinivil) 20 mg BID PO Last administered on 09/29/16 20:46; Start 09/27/16 at 21:00; Stop 10/29/16 at 20:59 Magnesium Hydroxide (Milk Of Magnesia) 30 ml BIDP PRN PO CONSTIPATION; Start at 09:30; Stop 10/28/16 at 09:29 Meloxicam (Mobic) 7.5 mg DAILY PO Last administered on 09/30/16 09:13; Start 09/28/16 at 09:00; Stop 10/28/16 at 08:59 Oxycodone HCl (Roxicodone, Oxyir) 5 mg Q6HP PRN PO PAIN SCALE 6-10 Last administered on 09/30/16 15:48; Start 09/27/16 at 17:15; Stop 10/04/16 at 17:14 Pantoprazole Sodium (Protonix) 40 mg DAILY PO Last administered on 09/30/16 09 :12; Start 09/28/16 at 09:00; Stop 10/28/16 at 08:59 Polyethylene Glycol (Miralax) 1 pkt DAILYPRN PRN PO CONSTIPATION Last administered on 09/30/16 09:10; Start 09/28/16 at 09:30; Stop 10/28/16 at 09:29 Rosuvastatin Calcium (Crestor) 40 mg DAILY PO Last administered on 09/30/16 09 :10; Start 09/28/16 at 09:00; Stop 10/28/16 at 08:59 Tramadol HCl (Ultram) 50 mg Q6HP PRN PO MODERATE PAIN (PS 5-7) Last administered on 09/28/16 05:38; Start 09/27/16 at 14:30; Stop 10/04/16 at 14:29 Vitamin D (Drisdol) 50,000 units @09 PO Last administered on 09/28/16 08:36 ; Start 09/28/16 at 09:00; Stop 10/28/16 at 08:59 FLORIN GUSMAN MD Sep 30, 2016 17:06
[2016-09-30 20:26] VITALS: BP 157/69
[2016-09-30] MEDS: MOM 30ML SUSPENSION UDC PO PRN (21:17)
[2016-09-30] MEDS: GABAPENTIN 300 MG CAP PO SCH (21:17)
[2016-10-01 05:22] VITALS: BP 133/68
[2016-10-01] MEDS: LEVOTHYROXINE 0.15 MG TAB (150 MCG) PO SCH (05:39)
[2016-10-01] MEDS: PANTOPRAZOLE 40MG TAB (PROTONIX) PO SCH (08:22)
[2016-10-01] MEDS: CALCIUM/VITAMIN D 500 MG TAB PO SCH (08:22)
[2016-10-01] MEDS: ROSUVASTATIN 10 MG TAB (CRESTOR) PO SCH (08:22)
[2016-10-01] MEDS: ASPIRIN 81 MG ENTERIC TAB PO SCH (08:22)
[2016-10-01] MEDS: GABAPENTIN 300 MG CAP PO SCH ×3 (08:22→20:29)
[2016-10-01] MEDS: CHLORTHALIDONE 25 MG TAB PO SCH (08:22)
[2016-10-01] MEDS: MELOXICAM (MOBIC) 7.5 MG TAB PO SCH (08:22)
[2016-10-01] MEDS: LISINOPRIL 20 MG TAB PO SCH ×2 (08:23→20:29)
[2016-10-01] MEDS: DOCUSATE SODIUM 100 MG CAP PO SCH ×2 (08:23→20:29)
[2016-10-01] MEDS: LEVEMIR (INSULIN DETEMIR) 1 UNITS/0.01ML SC SCH ×2 (08:23→20:30)
[2016-10-01] MEDS: HumaLOG INSULIN (NovoLOG) PER UNIT SC SCH ×4 (08:23→20:30)
[2016-10-01] MEDS: FERROUS SULFATE 325MG TAB PO SCH ×2 (08:23→20:29)
[2016-10-01] MEDS: MOM 30ML SUSPENSION UDC PO PRN (08:25)
--- NOTE | 2016-10-01 11:43 | IPNPDOC ---
Subjective Date Seen The patient was seen on 10/01/16. Subjective Chief Complaint/HPI The patient is a 66-year-old female admitted with a reason for visit of Polyneuropathy 2ND To Chemotherapy. Events since last encounter Pt OOB to chair and ambulating halls with therapy. no complaints. ENT: Denies: Dysphagia, Ear Pain, Head Aches Pulmonary: Denies: Cough, Dyspnea Cardiovascular: Denies: Chest Pain, Lt Headedness, Orthopnea, Palpitations, Paroxysmal Noc. Dyspnea Gastrointestinal: Denies: Abdominal Pain, Constipation, Diarrhea, Nausea, Vomiting Objective Physical Examination General Exam: Positive: Alert Eye Exam: Positive: PERRLA ENT Exam: Positive: Atraumatic, Mucous membr. moist/pink Neck Exam: Positive: Supple Chest Exam: Positive: Clear to auscultation, Normal air movement Heart Exam: Positive: Normal S1, Normal S2, Rate Normal, Regular Rhythm, Negative: Murmurs, Rubs Abdomen Exam: Positive: Normal bowel sounds, Soft, Negative: Hepatospenomegaly, Tenderness Extremity Exam: Negative: Edema Skin Exam: Positive: Nl turgor and temperature Assessment /Plan Problems (1) Weakness Status: Chronic Problem Text: * Rehab as per ARU (2) Polyneuropathy Status: Chronic Problem Text: * gabapentin * tramadol * Oxycodone for severe pain only. (3) Dysphagia Status: Chronic Problem Text: * ST [facility] soft diet (4) Anemia Status: Chronic Problem Text: * Fe supplement * Hgb trend upward (5) Urinary retention Status: Resolved (6) Dyslipidemia Status: Chronic Problem Text: * statin (7) Diabetes Status: Chronic Problem Text: * diet * SSI * Levemir (8) H/O malignant neoplasm of breast Status: Chronic (9) Hypothyroid Status: Chronic Problem Text: * cont supplement (10) HTN (hypertension) Status: Chronic Response to Treatment: Stable Problem Text: * chlorthalidone * Lisinopril * BP controlled * Serum creatinine 0.95 (11) UTI (urinary tract infection) Status: Acute Problem Text: * Klebsiella. * Levaquin completed 09/30/15. Plan/VTE VTE Prophylaxis Ordered?: Yes (SCD/TEDS) VS, I&O, 24H, Fishbone Vital Signs/I&O Vital Signs Date Time Temp Pulse Resp B/P Pulse Ox O2 Delivery O2 Flow Rate FiO2 10/01/16 08:23 133/68 10/01/16 05:22 98.2 71 18 99 Room Air I&O- Last 24 Hours up to 6 AM 10/01/16 06:00 Intake Total 720 ml Balance 720 ml Laboratory Data 24H LABS Laboratory Tests 2 09/30/16 17:01: Bedside Glucose (Misc Panel) 304H 09/30/16 20:12: Bedside Glucose (Misc Panel) 318H 10/01/16 05:29: Bedside Glucose (Misc Panel) 196H Michelle Adams Oct 01, 2016 11:43
[2016-10-01 14:00] VITALS: BP 144/65
--- NOTE | 2016-10-01 14:08 | IPNPDOC ---
Stockroom Keeper Progress Note DATE OF SERVICE: 10/01/2016 DATE OF ADMISSION: Sep 27, 2016 at 15:50 INPATIENT REHABILITATION ADMISSION DAY: #4 SUBJECTIVE: Patient is a 66-year-old female with weakness secondary to diabetic polyneuropathy exacerbated by chemotherapy for breast cancer. Patient without complaints today other than the usual chronic back pain. Patient needs to use the [place] which are effective more frequently but otherwise no problems. I discussed with patient her admission hemoglobin A1c and the complication risk level that puts her at. I discussed the importance of compliance with her medications and also with the home care providers and services. ALLERGIES: See Below MEDICATIONS: Reviewed, see below. OBJECTIVE: VITAL SIGNS: Please see below. PHYSICAL EXAMINATION: GENERAL: Overweight, late middle-age white female, patient is alert and oriented to Person, Place, General time and General situation. Patient is in no acute distress sitting up in her chair notes having received a a rolling walker with pulldown seat friend for her use. This appears to be of appropriate size or the patient. HEENT: Normocephalic/atraumatic. CARDIOVASCULAR: Regular rate and rhythm with normal S1 and S2 and normal 2 out 4 radial pulses bilaterally. LUNGS: All joshi clear to auscultation. ABDOMEN: Obese, nontender, with normal bowel sounds in all quadrants. NEUROLOGICAL: Patient demonstrating greater than 4 minus out of 5 strength when observed in physical therapy on her ambulation and transfers. SKIN: Grossly intact. LABORATORY DATA: Reviewed. Please see below. MICROBIOLOGY: Please see below. ASSESSMENT AND PLAN: 1. Rehabilitation of polyneuropathy: Patient making good gains and achieving near target level of function in ADLs and mobility. 2. Diabetes mellitus Type 2: Is important to get patient does understand the seriousness of this disease and her need to adhere consistently to management. She did seem to understand that running a hemoglobin A1c of over 13 puts her about million times per the risk of the person running 7's. Her sugar numbers have been improved of late but she continues to have extraneous carbohydrates around her room. 3. Chronic pain: I believe a lot of this is neurogenic and is responding to the increasing gabapentin and I am decreasing the oxycodone and will phase out by discharge using it. I will rely on the gabapentin for the bulk of her pain management. Patient also on Mobic 7.5 mg po qDaily prn for arthritis pain. TIME SPENT: Chart Review, examination and documentation greater than 25 minutes. Allergies Coded Allergies: Penicillins (Verified Allergy, Intermediate, "FLIPS OUT", HIVES, 09/18/12) Penicillins Cross Reactors (Verified Allergy, Intermediate, "FLIPS OUT", HIVES, 09/18/12) Vital Signs Vital Signs Date Time Temp Pulse Resp B/P Pulse Ox O2 Delivery O2 Flow Rate FiO2 10/01/16 08:23 133/68 10/01/16 05:22 98.2 71 18 99 Room Air Laboratory Data Labs 24H Laboratory Tests 2 09/30/16 17:01: Bedside Glucose (Misc Panel) 304H 09/30/16 20:12: Bedside Glucose (Misc Panel) 318H 10/01/16 05:29: Bedside Glucose (Misc Panel) 196H 10/01/16 11:56: Bedside Glucose (Misc Panel) 274H Current Medications Current Medications Current Medications Alendronate Sodium (Fosamax) 70 mg Tu@07 PO Last administered on 09/28/16 06: 37; Start 09/28/16 at 07:00; Stop 10/28/16 at 06:59 Aspirin (Ecotrin) 81 mg DAILY PO Last administered on 10/01/16 08:22; Start at 09:00; Stop 10/28/16 at 08:59 Calcium/Vitamin D (Oscal D) 500 mg QAM PO Last administered on 10/01/16 08:22 ; Start 09/28/16 at 09:00; Stop 10/28/16 at 08:59 Chlorthalidone (Hygroton) 25 mg DAILY PO Last administered on 10/01/16 08:22; Start 09/28/16 at 09:00; Stop 10/28/16 at 08:59 Dextrose (Dextrose 50%) 25 ml ASDIRECTED PRN IV SEE LABEL COMMENTS; Start 09/27 at 13:30; Stop 10/27/16 at 13:29 Docusate Sodium (Colace) 100 mg BID PO Last administered on 10/01/16 08:23; Start 09/28/16 at 09:00; Stop 10/28/16 at 08:59 Ferrous Sulfate (Ferrous Sulfate) 325 mg BID PO Last administered on 10/01/16 08:23; Start 09/27/16 at 21:00; Stop 10/27/16 at 20:59 Gabapentin (Neurontin) 400 mg TID PO ; Start 09/27/16 at 16:00; Stop 09/27/16 at 16:32; Status DC Gabapentin (Neurontin) 400 mg TID PO Last administered on 09/30/16 15:47; Start 09/27/16 at 16:00; Stop 09/30/16 at 17:09; Status DC Gabapentin (Neurontin) 400 mg TID PO ; Start 09/27/16 at 16:32; Stop 09/27/16 at 17:22; Status DC Gabapentin (Neurontin) 600 mg TID PO Last administered on 10/01/16 08:22; Start 09/30/16 at 21:00; Stop 10/30/16 at 20:59 Glucagon (Glucagon) 1 mg ASDIRECTED PRN SC SEE LABEL COMMENTS; Start 09/27/16 at 13:30; Stop 10/27/16 at 13:29 Glucose (Glucose) 16 GM ASDIRECTED PRN PO SEE LABEL COMMENTS; Start 09/27/16 at 13:30; Stop 10/27/16 at 13:29 Home Med (Med Rec Complete!) ASDIRECTED XX ; Start 09/27/16 at 18:00; Stop 04/05 at 18:00; Status DC Insulin Detemir (Levemir Insulin) 20 units QAM SC Last administered on 08:23; Start 09/28/16 at 09:00; Stop 10/28/16 at 08:59 Insulin Detemir (Levemir Insulin) 30 units QHS SC Last administered on 21:18; Start 09/27/16 at 21:00; Stop 10/27/16 at 20:59 Insulin Human Lispro (HumaLOG INSULIN) AC SC Last administered on 09/27/16 17 :23; Start 09/27/16 at 17:30; Stop 09/27/16 at 20:51; Status DC Insulin Human Lispro (HumaLOG INSULIN) QHS SC ; Start 09/27/16 at 21:00; Stop 09/27/16 at 21:00; Status DC Insulin Human Lispro (HumaLOG INSULIN) See Protocol Table AC SC Last administered on 10/01/16 12:14; Start 09/28/16 at 07:30; Stop 10/28/16 at 07:29 Insulin Human Lispro (HumaLOG INSULIN) See Protocol Table QHS SC Last administered on 09/30/16 21:18; Start 09/27/16 at 21:00; Stop 10/27/16 at 20:59 Levofloxacin (Levaquin) 250 mg DAILY@18 PO Last administered on 09/29/16 17:41 ; Start 09/27/16 at 18:00; Stop 09/30/16 at 12:50; Status DC Levothyroxine Sodium (Synthroid) 0.3 mg DAILY@06 PO Last administered on 05:39; Start 09/28/16 at 06:00; Stop 10/28/16 at 05:59 Lisinopril (Prinivil) 20 mg BID PO Last administered on 10/01/16 08:23; Start 09/27/16 at 21:00; Stop 10/29/16 at 20:59 Magnesium Hydroxide (Milk Of Magnesia) 30 ml BIDP PRN PO CONSTIPATION Last administered on 10/01/16 08:25; Start 09/28/16 at 09:30; Stop 10/28/16 at 09:29 Meloxicam (Mobic) 7.5 mg DAILY PO Last administered on 10/01/16 08:22; Start 09/28/16 at 09:00; Stop 10/28/16 at 08:59 Oxycodone HCl (Roxicodone, Oxyir) 5 mg BIDP PRN PO PAIN SCALE 6-10; Start 09/30 at 17:15; Stop 10/07/16 at 17:14 Oxycodone HCl (Roxicodone, Oxyir) 5 mg Q6HP PRN PO PAIN SCALE 6-10 Last administered on 09/30/16 15:48; Start 09/27/16 at 17:15; Stop 09/30/16 at 17:11 ; Status DC Pantoprazole Sodium (Protonix) 40 mg DAILY PO Last administered on 10/01/16 08 :22; Start 09/28/16 at 09:00; Stop 10/28/16 at 08:59 Polyethylene Glycol (Miralax) 1 pkt DAILYPRN PRN PO CONSTIPATION Last administered on 09/30/16 09:10; Start 09/28/16 at 09:30; Stop 10/28/16 at 09:29 Rosuvastatin Calcium (Crestor) 40 mg DAILY PO Last administered on 10/01/16 08 :22; Start 09/28/16 at 09:00; Stop 10/28/16 at 08:59 Tramadol HCl (Ultram) 50 mg Q6HP PRN PO MODERATE PAIN (PS 5-7) Last administered on 09/28/16 05:38; Start 09/27/16 at 14:30; Stop 10/04/16 at 14:29 Vitamin D (Drisdol) 50,000 units Tu@09 PO Last administered on 09/28/16 08:36 ; Start 09/28/16 at 09:00; Stop 10/28/16 at 08:59 FLORIN GUSMAN MD Oct 01, 2016 14:04
[2016-10-01] MEDS ORDERED: MELOXICAM (MOBIC) 7.5 MG TAB PO PRN (14:15)
[2016-10-01 22:00] VITALS: BP 147/79
[2016-10-01] MEDS: traMADol 50 MG TAB PO PRN (23:50)
[2016-10-02] MEDS: LEVOTHYROXINE 0.15 MG TAB (150 MCG) PO SCH (05:52)
[2016-10-02] MEDS: traMADol 50 MG TAB PO PRN ×3 (05:53→20:42)
[2016-10-02 06:00] VITALS: BP 147/79
[2016-10-02] MEDS: ASPIRIN 81 MG ENTERIC TAB PO SCH (08:18)
[2016-10-02] MEDS: HumaLOG INSULIN (NovoLOG) PER UNIT SC SCH ×4 (08:18→20:42)
[2016-10-02] MEDS: DOCUSATE SODIUM 100 MG CAP PO SCH ×2 (08:19→20:41)
[2016-10-02] MEDS: CHLORTHALIDONE 25 MG TAB PO SCH (08:19)
[2016-10-02] MEDS: GABAPENTIN 300 MG CAP PO SCH ×3 (08:19→20:41)
[2016-10-02] MEDS: CALCIUM/VITAMIN D 500 MG TAB PO SCH (08:19)
[2016-10-02] MEDS: PANTOPRAZOLE 40MG TAB (PROTONIX) PO SCH (08:19)
[2016-10-02] MEDS: FERROUS SULFATE 325MG TAB PO SCH ×2 (08:19→20:41)
[2016-10-02] MEDS: ROSUVASTATIN 10 MG TAB (CRESTOR) PO SCH (08:19)
[2016-10-02] MEDS: LISINOPRIL 20 MG TAB PO SCH ×2 (08:19→20:41)
[2016-10-02] MEDS: LEVEMIR (INSULIN DETEMIR) 1 UNITS/0.01ML SC SCH ×2 (08:20→20:43)
[2016-10-02 14:00] VITALS: BP 130/60
[2016-10-02 20:50] VITALS: BP 136/63
[2016-10-03] MEDS: LEVOTHYROXINE 0.15 MG TAB (150 MCG) PO SCH (05:41)
[2016-10-03 06:36] VITALS: BP 122/60
[2016-10-03] MEDS: HumaLOG INSULIN (NovoLOG) PER UNIT SC SCH ×4 (08:20→20:47)
[2016-10-03] MEDS: DOCUSATE SODIUM 100 MG CAP PO SCH ×2 (08:21→20:49)
[2016-10-03] MEDS: FERROUS SULFATE 325MG TAB PO SCH ×2 (08:21→20:49)
[2016-10-03] MEDS: ROSUVASTATIN 10 MG TAB (CRESTOR) PO SCH (08:21)
[2016-10-03] MEDS: CHLORTHALIDONE 25 MG TAB PO SCH (08:21)
[2016-10-03] MEDS: CALCIUM/VITAMIN D 500 MG TAB PO SCH (08:21)
[2016-10-03] MEDS: PANTOPRAZOLE 40MG TAB (PROTONIX) PO SCH (08:21)
[2016-10-03] MEDS: GABAPENTIN 300 MG CAP PO SCH ×3 (08:21→20:49)
[2016-10-03] MEDS: LISINOPRIL 20 MG TAB PO SCH ×2 (08:21→20:49)
[2016-10-03] MEDS: ASPIRIN 81 MG ENTERIC TAB PO SCH (08:21)
[2016-10-03] MEDS: LEVEMIR (INSULIN DETEMIR) 1 UNITS/0.01ML SC SCH ×2 (08:21→20:46)
[2016-10-03] MEDS: traMADol 50 MG TAB PO PRN (08:23)
[2016-10-03] MEDS: oxyCODONE 5MG TAB PO PRN ×2 (10:47→20:50)
[2016-10-03 14:00] VITALS: BP 156/77
[2016-10-03 20:00] VITALS: BP 158/69
[2016-10-04 06:00] VITALS: BP 142/69
[2016-10-04] MEDS: LEVOTHYROXINE 0.15 MG TAB (150 MCG) PO SCH (06:27)
[2016-10-04] MEDS: oxyCODONE 5MG TAB PO PRN (06:30)
[2016-10-04] MEDS ORDERED: TRAM50TA2 PO (08:26)
[2016-10-04] MEDS ORDERED: GABA-282 PO (08:26)
[2016-10-04] MEDS ORDERED: MELO7.5T6 PO (08:26)
[2016-10-04] MEDS: LEVEMIR (INSULIN DETEMIR) 1 UNITS/0.01ML SC SCH ×2 (08:27→20:30)
[2016-10-04] MEDS: CALCIUM/VITAMIN D 500 MG TAB PO SCH (08:27)
[2016-10-04] MEDS: DOCUSATE SODIUM 100 MG CAP PO SCH ×2 (08:27→20:31)
[2016-10-04] MEDS: ASPIRIN 81 MG ENTERIC TAB PO SCH (08:27)
[2016-10-04] MEDS: FERROUS SULFATE 325MG TAB PO SCH ×2 (08:27→20:31)
[2016-10-04] MEDS: PANTOPRAZOLE 40MG TAB (PROTONIX) PO SCH (08:27)
[2016-10-04] MEDS: ROSUVASTATIN 10 MG TAB (CRESTOR) PO SCH (08:27)
[2016-10-04] MEDS: HumaLOG INSULIN (NovoLOG) PER UNIT SC SCH ×4 (08:27→21:00)
[2016-10-04] MEDS: LISINOPRIL 20 MG TAB PO SCH ×2 (08:28→20:31)
[2016-10-04] MEDS: CHLORTHALIDONE 25 MG TAB PO SCH (08:28)
[2016-10-04] MEDS: GABAPENTIN 300 MG CAP PO SCH ×3 (08:28→20:31)
--- NOTE | 2016-10-04 11:03 | IPNPDOC ---
Consumer Banker Progress Note DATE OF SERVICE: 10/04/16 DATE OF ADMISSION: Sep 27, 2016 at 15:50 INPATIENT REHABILITATION ADMISSION DAY: #7 SUBJECTIVE: Patient is a 66-year-old white female with weakness secondary polyneuropathy. Patient notes some continued pain overall under better control with no fever chills. Patient expresses her sadness at not being able to go home today as home care cannot be arranged. I have talked to the patient about her level of compliance and how this is sabotaged her with the home care agency plus she needs to be more consistent with going to void as she does not notice the need to void and will sit with a filling bladder for extended periods of time and volumes well over 400 mL. ALLERGIES: See Below MEDICATIONS: Reviewed, see below. OBJECTIVE: VITAL SIGNS: Please see below. PHYSICAL EXAMINATION: GENERAL: Overweight middle-age white female with some flattening of affect and some tears today after I discussed the home situation with her. Patient is alert and oriented person, place, and general time and situation. Patient is in no acute distress physically. HEENT: Normocephalic/atraumatic. CARDIOVASCULAR: Regular rate and rhythm with normal S1-S2 without S3-S4 murmurs or rubs. 2 out 4 bilateral radial pulses. Good perfusion of the finger tips and less than 2 seconds after releasing pressure over the nailbeds. LUNGS: All joshi are clear auscultation, good air movement throughout. ABDOMEN: Obese, nontender throughout, normal bowel sounds in all quadrants. NEUROLOGICAL: Patient with chronic flattening of affect is somewhat of a lasse fare attitude towards consistency with self-care and medication management. Good to full strength in the upper and lower extremities. SKIN: Intact LABORATORY DATA: Reviewed. Please see below. MICROBIOLOGY: Please see below. IMAGING: No new. DVT prophylaxis ordered?: Continues on aspirin. ASSESSMENT AND PLAN: 1. Rehabilitation of polyneuropathy secondary to diabetes and probably chemotherapy: Overall patient has progressed and done fairly well in the stable environment of the acute hospital and the acute rehabilitation unit. If patient was focused on compliance with taking her medications on time and performing all self-care I consistent basis she would be discharged today. However patient is not always compliant and with these sensory deficits from the neuropathy she does need some help and support which is not currently available. Our property caretaker is working on trying to find support for home care. 2. Urinary retention: I will have nursing sit patient to void on a regular basis hopefully this will result and lower bladder volumes and hopefully the patient will learn the pattern of voiding on a time schedule as she does not have good perception of the need to go void. 3. Diabetes: I will check a hemoglobin A1c to see how she progressed in house along with a new comprehensive metabolic panel. 4. Discharge Planning: Home Health Nursing Assessment on Tuesday. Will plan discharge with her neighbor/friend who will stay with her and try to get home health aides reestablished to follow closely on Tuesday's assessment. Patient will need Patient/Family Conference this week. Also transition medications to one to 3 times per day, and start nursing reviewing and having patient assume progressive responsibility for medications, voiding trials q4 hours while awake , along with room privileges. Patient has progressed to Modified [place] in most ADL's and mobility so has achieved discharge goals in these areas, but lacks judgment, problems solving, meal preparation and medication management skills to return home without supervision or Home Health Services. TIME SPENT: Chart Review, examination and documentation >35 minutes. Allergies Coded Allergies: Penicillins (Verified Allergy, Intermediate, "FLIPS OUT", HIVES, 09/18/12) Penicillins Cross Reactors (Verified Allergy, Intermediate, "FLIPS OUT", HIVES, 09/18/12) Vital Signs Vital Signs Date Time Temp Pulse Resp B/P Pulse Ox O2 Delivery O2 Flow Rate FiO2 10/04/16 09:00 Room Air 10/04/16 08:28 142/69 10/04/16 07:20 18 10/04/16 06:30 98 10/04/16 06:00 98.8 72 Laboratory Data Labs 24H Laboratory Tests 2 10/03/16 11:42: Bedside Glucose (Misc Panel) 225H 10/03/16 16:41: Bedside Glucose (Misc Panel) 234H 10/03/16 20:30: Bedside Glucose (Misc Panel) 287H 10/04/16 06:24: Bedside Glucose (Misc Panel) 215H Current Medications Current Medications Current Medications Alendronate Sodium (Fosamax) 70 mg Tu@07 PO Last administered on 09/28/16 06: 37; Start 09/28/16 at 07:00; Stop 10/28/16 at 06:59 Aspirin (Ecotrin) 81 mg DAILY PO Last administered on 10/04/16 08:27; Start at 09:00; Stop 10/28/16 at 08:59 Calcium/Vitamin D (Oscal D) 500 mg QAM PO Last administered on 10/04/16 08:27 ; Start 09/28/16 at 09:00; Stop 10/28/16 at 08:59 Chlorthalidone (Hygroton) 25 mg DAILY PO Last administered on 10/04/16 08:28; Start 09/28/16 at 09:00; Stop 10/28/16 at 08:59 Dextrose (Dextrose 50%) 25 ml ASDIRECTED PRN IV SEE LABEL COMMENTS; Start 09/27 at 13:30; Stop 10/27/16 at 13:29 Docusate Sodium (Colace) 100 mg BID PO Last administered on 10/04/16 08:27; Start 09/28/16 at 09:00; Stop 10/28/16 at 08:59 Ferrous Sulfate (Ferrous Sulfate) 325 mg BID PO Last administered on 10/04/16 08:27; Start 09/27/16 at 21:00; Stop 10/27/16 at 20:59 Gabapentin (Neurontin) 400 mg TID PO ; Start 09/27/16 at 16:00; Stop 09/27/16 at 16:32; Status DC Gabapentin (Neurontin) 400 mg TID PO Last administered on 09/30/16 15:47; Start 09/27/16 at 16:00; Stop 09/30/16 at 17:09; Status DC Gabapentin (Neurontin) 400 mg TID PO ; Start 09/27/16 at 16:32; Stop 09/27/16 at 17:22; Status DC Gabapentin (Neurontin) 600 mg TID PO Last administered on 10/04/16 08:28; Start 09/30/16 at 21:00; Stop 10/30/16 at 20:59 Glucagon (Glucagon) 1 mg ASDIRECTED PRN SC SEE LABEL COMMENTS; Start 09/27/16 at 13:30; Stop 10/27/16 at 13:29 Glucose (Glucose) 16 GM ASDIRECTED PRN PO SEE LABEL COMMENTS; Start 09/27/16 at 13:30; Stop 10/27/16 at 13:29 Home Med (Med Rec Complete!) ASDIRECTED XX ; Start 09/27/16 at 18:00; Stop 04/05 at 18:00; Status DC Insulin Detemir (Levemir Insulin) 20 units QAM SC Last administered on 08:27; Start 09/28/16 at 09:00; Stop 10/28/16 at 08:59 Insulin Detemir (Levemir Insulin) 30 units QHS SC Last administered on 20:46; Start 09/27/16 at 21:00; Stop 10/27/16 at 20:59 Insulin Human Lispro (HumaLOG INSULIN) AC SC Last administered on 09/27/16 17 :23; Start 09/27/16 at 17:30; Stop 09/27/16 at 20:51; Status DC Insulin Human Lispro (HumaLOG INSULIN) QHS SC ; Start 09/27/16 at 21:00; Stop 09/27/16 at 21:00; Status DC Insulin Human Lispro (HumaLOG INSULIN) See Protocol Table AC SC Last administered on 10/04/16 08:27; Start 09/28/16 at 07:30; Stop 10/28/16 at 07:29 Insulin Human Lispro (HumaLOG INSULIN) See Protocol Table QHS SC Last administered on 10/03/16 20:47; Start 09/27/16 at 21:00; Stop 10/27/16 at 20:59 Levofloxacin (Levaquin) 250 mg DAILY@18 PO Last administered on 09/29/16 17:41 ; Start 09/27/16 at 18:00; Stop 09/30/16 at 12:50; Status DC Levothyroxine Sodium (Synthroid) 0.3 mg DAILY@06 PO Last administered on 06:27; Start 09/28/16 at 06:00; Stop 10/28/16 at 05:59 Lisinopril (Prinivil) 20 mg BID PO Last administered on 10/04/16 08:28; Start 09/27/16 at 21:00; Stop 10/29/16 at 20:59 Magnesium Hydroxide (Milk Of Magnesia) 30 ml BIDP PRN PO CONSTIPATION Last administered on 10/01/16 08:25; Start 09/28/16 at 09:30; Stop 10/28/16 at 09:29 Meloxicam (Mobic) 7.5 mg DAILY PO Last administered on 10/01/16 08:22; Start 09/28/16 at 09:00; Stop 10/01/16 at 14:11; Status DC Meloxicam (Mobic) 7.5 mg DAILY PRN PO PAIN; Start 10/01/16 at 14:15; Stop 10/31 at 14:14 Oxycodone HCl (Roxicodone, Oxyir) 5 mg BIDP PRN PO PAIN SCALE 6-10 Last administered on 10/04/16 06:30; Start 09/30/16 at 17:15; Stop 10/04/16 at 08:51 ; Status DC Oxycodone HCl (Roxicodone, Oxyir) 5 mg Q6HP PRN PO PAIN SCALE 6-10 Last administered on 09/30/16 15:48; Start 09/27/16 at 17:15; Stop 09/30/16 at 17:11 ; Status DC Pantoprazole Sodium (Protonix) 40 mg DAILY PO Last administered on 10/04/16 08 :27; Start 09/28/16 at 09:00; Stop 10/28/16 at 08:59 Polyethylene Glycol (Miralax) 1 pkt DAILYPRN PRN PO CONSTIPATION Last administered on 09/30/16 09:10; Start 09/28/16 at 09:30; Stop 10/28/16 at 09:29 Rosuvastatin Calcium (Crestor) 40 mg DAILY PO Last administered on 10/04/16 08 :27; Start 09/28/16 at 09:00; Stop 10/28/16 at 08:59 Tramadol HCl (Ultram) 50 mg Q6HP PRN PO MODERATE PAIN (PS 5-7) Last administered on 10/03/16 08:23; Start 09/27/16 at 14:30; Stop 10/11/16 at 14:29 Vitamin D (Drisdol) 50,000 units @09 PO Last administered on 09/28/16 08:36 ; Start 09/28/16 at 09:00; Stop 10/28/16 at 08:59 FLORIN GUSMAN MD Oct 04, 2016 11:03
[2016-10-04 12:25] LABS: ALBUMIN/GLOBULIN RATIO 0.91 (1.00-1.93); ALKALINE PHOSPHATASE 71 U/L (45-117); ALT/SGPT 25 U/L (12-78); ANION GAP 6 MEQ/L (8-16); AST/SGOT 19 U/L (15-37); BILIRUBIN,TOTAL 0.6 MG/DL (0.2-1.0); BLOOD UREA NITROGEN 27 MG/DL (7-18); CALCIUM LEVEL 8.1 MG/DL (8.8-10.2); CARBON DIOXIDE LEVEL 28 MEQ/L (21-32); CHLORIDE LEVEL 104 MEQ/L (98-107); CREATININE FOR GFR 0.86 MG/DL (0.55-1.02); GLOMERULAR FILTRATION RATE > 60.0 (>45); GLUCOSE, FASTING 204 MG/DL (80-110); SODIUM LEVEL 138 MEQ/L (136-145); TOTAL PROTEIN 6.3 GM/DL (6.4-8.2)
[2016-10-04 14:00] VITALS: BP 148/69
[2016-10-04 20:00] VITALS: BP 166/72
[2016-10-05] MEDS: traMADol 50 MG TAB PO PRN (04:48)
[2016-10-05 06:00] VITALS: BP 170/77
[2016-10-05] MEDS: ALENDRONATE 70 MG TABLET (FOSAMAX) PO SCH (06:16)
[2016-10-05] MEDS: LEVOTHYROXINE 0.15 MG TAB (150 MCG) PO SCH (06:16)
[2016-10-05] MEDS: VITAMIN D 50,000 UNITS CAPSULE (ERGOCALCIFEROL 1.25MG) PO SCH (08:15)
[2016-10-05] MEDS: LEVEMIR (INSULIN DETEMIR) 1 UNITS/0.01ML SC SCH ×2 (08:16→22:15)
[2016-10-05] MEDS: HumaLOG INSULIN (NovoLOG) PER UNIT SC SCH ×4 (08:16→22:16)
[2016-10-05] MEDS: CALCIUM/VITAMIN D 500 MG TAB PO SCH (08:16)
[2016-10-05] MEDS: ROSUVASTATIN 10 MG TAB (CRESTOR) PO SCH (08:17)
[2016-10-05] MEDS: CHLORTHALIDONE 25 MG TAB PO SCH (08:17)
[2016-10-05] MEDS: GABAPENTIN 300 MG CAP PO SCH ×3 (08:17→22:15)
[2016-10-05] MEDS: DOCUSATE SODIUM 100 MG CAP PO SCH ×2 (08:17→22:14)
[2016-10-05] MEDS: LISINOPRIL 20 MG TAB PO SCH ×2 (08:17→22:15)
[2016-10-05] MEDS: PANTOPRAZOLE 40MG TAB (PROTONIX) PO SCH (08:17)
[2016-10-05] MEDS: FERROUS SULFATE 325MG TAB PO SCH ×2 (08:17→22:15)
[2016-10-05] MEDS: ASPIRIN 81 MG ENTERIC TAB PO SCH (08:17)
--- NOTE | 2016-10-05 11:56 | IPNPDOC ---
Regasification Plant Operator Progress Note DATE OF SERVICE: 10/05/2016 DATE OF ADMISSION: Sep 27, 2016 at 15:50 INPATIENT REHABILITATION ADMISSION DAY: #8 SUBJECTIVE: Patient is a 66-year-old white female with diabetic polyneuropathy exacerbated by chemotherapy. Patient without fever or chills or significant pain at this time or other complaints. ALLERGIES: See Below MEDICATIONS: Reviewed, see below. OBJECTIVE: VITAL SIGNS: Please see below. PHYSICAL EXAMINATION: GENERAL: Overweight middle-age white female in no acute distress who is alert and oriented to person and place, but less to time and situation. HEENT: Normocephalic/atraumatic/poor dentition. CARDIOVASCULAR: Regular rate and rhythm with normal S1 and S2. LUNGS: All joshi clear to auscultation. NEUROLOGICAL: As above with ongoing marked sensory deficit in the distal hands and feet as well as the distal third of the forearm and distal two thirds of the leg. LABORATORY DATA: Reviewed. Please see below. MICROBIOLOGY: Please see below. ASSESSMENT AND PLAN: 1. Rehabilitation of polyneuropathy: Patient continuing to increase mobility and endurance but still cognitively limited so she will need home care. Patient be discharge to home with her friend who can also stay with her part of the time on Tuesday and to have home care valve on Tuesday. 2. Type 2 diabetes mellitus: Hemoglobin A1c 12.6 which is a decrease in one from 13.6 on 09/20/16. TIME SPENT: Chart Review, examination and documentation greater than 15 minutes. Allergies Coded Allergies: Penicillins (Verified Allergy, Intermediate, "FLIPS OUT", HIVES, 09/18/12) Penicillins Cross Reactors (Verified Allergy, Intermediate, "FLIPS OUT", HIVES, 09/18/12) Vital Signs Vital Signs Date Time Temp Pulse Resp B/P Pulse Ox O2 Delivery O2 Flow Rate FiO2 10/05/16 09:00 Room Air 10/05/16 08:17 170/77 10/05/16 06:00 97.9 70 18 98 Laboratory Data Labs 24H Laboratory Tests 2 10/04/16 12:09: Bedside Glucose (Misc Panel) 177H 10/04/16 17:06: Bedside Glucose (Misc Panel) 190H 10/04/16 20:20: Bedside Glucose (Misc Panel) 227H 10/05/16 06:28: Bedside Glucose (Misc Panel) 169H 10/05/16 07:53: Bedside Glucose (Misc Panel) 154H 10/05/16 11:25: Bedside Glucose (Misc Panel) 242H Current Medications Current Medications Current Medications Alendronate Sodium (Fosamax) 70 mg Tu@07 PO Last administered on 10/05/16 06: 16; Start 09/28/16 at 07:00; Stop 10/28/16 at 06:59 Aspirin (Ecotrin) 81 mg DAILY PO Last administered on 10/05/16 08:17; Start at 09:00; Stop 10/28/16 at 08:59 Calcium/Vitamin D (Oscal D) 500 mg QAM PO Last administered on 10/05/16 08:16 ; Start 09/28/16 at 09:00; Stop 10/28/16 at 08:59 Chlorthalidone (Hygroton) 25 mg DAILY PO Last administered on 10/05/16 08:17; Start 09/28/16 at 09:00; Stop 10/28/16 at 08:59 Dextrose (Dextrose 50%) 25 ml ASDIRECTED PRN IV SEE LABEL COMMENTS; Start 09/27 at 13:30; Stop 10/27/16 at 13:29 Docusate Sodium (Colace) 100 mg BID PO Last administered on 10/05/16 08:17; Start 09/28/16 at 09:00; Stop 10/28/16 at 08:59 Ferrous Sulfate (Ferrous Sulfate) 325 mg BID PO Last administered on 10/05/16 08:17; Start 09/27/16 at 21:00; Stop 10/27/16 at 20:59 Gabapentin (Neurontin) 400 mg TID PO ; Start 09/27/16 at 16:00; Stop 09/27/16 at 16:32; Status DC Gabapentin (Neurontin) 400 mg TID PO Last administered on 09/30/16 15:47; Start 09/27/16 at 16:00; Stop 09/30/16 at 17:09; Status DC Gabapentin (Neurontin) 400 mg TID PO ; Start 09/27/16 at 16:32; Stop 09/27/16 at 17:22; Status DC Gabapentin (Neurontin) 600 mg TID PO Last administered on 10/05/16 08:17; Start 09/30/16 at 21:00; Stop 10/30/16 at 20:59 Glucagon (Glucagon) 1 mg ASDIRECTED PRN SC SEE LABEL COMMENTS; Start 09/27/16 at 13:30; Stop 10/27/16 at 13:29 Glucose (Glucose) 16 GM ASDIRECTED PRN PO SEE LABEL COMMENTS; Start 09/27/16 at 13:30; Stop 10/27/16 at 13:29 Home Med (Med Rec Complete!) ASDIRECTED XX ; Start 09/27/16 at 18:00; Stop 04/05 at 18:00; Status DC Insulin Detemir (Levemir Insulin) 20 units QAM SC Last administered on 08:16; Start 09/28/16 at 09:00; Stop 10/28/16 at 08:59 Insulin Detemir (Levemir Insulin) 30 units QHS SC Last administered on 20:30; Start 09/27/16 at 21:00; Stop 10/27/16 at 20:59 Insulin Human Lispro (HumaLOG INSULIN) AC SC Last administered on 09/27/16 17 :23; Start 09/27/16 at 17:30; Stop 09/27/16 at 20:51; Status DC Insulin Human Lispro (HumaLOG INSULIN) QHS SC ; Start 09/27/16 at 21:00; Stop 09/27/16 at 21:00; Status DC Insulin Human Lispro (HumaLOG INSULIN) See Protocol Table AC SC Last administered on 10/05/16 08:16; Start 09/28/16 at 07:30; Stop 10/28/16 at 07:29 Insulin Human Lispro (HumaLOG INSULIN) See Protocol Table QHS SC Last administered on 10/03/16 20:47; Start 09/27/16 at 21:00; Stop 10/27/16 at 20:59 Levofloxacin (Levaquin) 250 mg DAILY@18 PO Last administered on 09/29/16 17:41 ; Start 09/27/16 at 18:00; Stop 09/30/16 at 12:50; Status DC Levothyroxine Sodium (Synthroid) 0.3 mg DAILY@06 PO Last administered on 06:16; Start 09/28/16 at 06:00; Stop 10/28/16 at 05:59 Lisinopril (Prinivil) 20 mg BID PO Last administered on 10/05/16 08:17; Start 09/27/16 at 21:00; Stop 10/29/16 at 20:59 Magnesium Hydroxide (Milk Of Magnesia) 30 ml BIDP PRN PO CONSTIPATION Last administered on 10/01/16 08:25; Start 09/28/16 at 09:30; Stop 10/28/16 at 09:29 Meloxicam (Mobic) 7.5 mg DAILY PO Last administered on 10/01/16 08:22; Start 09/28/16 at 09:00; Stop 10/01/16 at 14:11; Status DC Meloxicam (Mobic) 7.5 mg DAILY PRN PO PAIN Last administered on 10/04/16 12:18 ; Start 10/01/16 at 14:15; Stop 10/31/16 at 14:14 Oxycodone HCl (Roxicodone, Oxyir) 5 mg BIDP PRN PO PAIN SCALE 6-10 Last administered on 10/04/16 06:30; Start 09/30/16 at 17:15; Stop 10/04/16 at 08:51 ; Status DC Oxycodone HCl (Roxicodone, Oxyir) 5 mg Q6HP PRN PO PAIN SCALE 6-10 Last administered on 09/30/16 15:48; Start 09/27/16 at 17:15; Stop 09/30/16 at 17:11 ; Status DC Pantoprazole Sodium (Protonix) 40 mg DAILY PO Last administered on 10/05/16 08 :17; Start 09/28/16 at 09:00; Stop 10/28/16 at 08:59 Polyethylene Glycol (Miralax) 1 pkt DAILYPRN PRN PO CONSTIPATION Last administered on 09/30/16 09:10; Start 09/28/16 at 09:30; Stop 10/28/16 at 09:29 Rosuvastatin Calcium (Crestor) 40 mg DAILY PO Last administered on 10/05/16 08 :17; Start 09/28/16 at 09:00; Stop 10/28/16 at 08:59 Tramadol HCl (Ultram) 50 mg Q6HP PRN PO MODERATE PAIN (PS 5-7) Last administered on 10/03/16 08:23; Start 09/27/16 at 14:30; Stop 10/04/16 at 14:18 ; Status DC Tramadol HCl (Ultram) 50 mg Q8HP PRN PO MODERATE PAIN (PS 5-7) Last administered on 10/05/16 04:48; Start 10/04/16 at 14:30; Stop 10/11/16 at 14:29 Vitamin D (Drisdol) 50,000 units Tu@09 PO Last administered on 10/05/16 08:15 ; Start 09/28/16 at 09:00; Stop 10/28/16 at 08:59 FLORIN GUSMAN MD Oct 05, 2016 11:56
[2016-10-05 14:00] VITALS: BP 152/73
[2016-10-05 20:30] VITALS: BP 173/74
[2016-10-06] MEDS: traMADol 50 MG TAB PO PRN ×3 (03:48→20:19)
[2016-10-06 04:28] VITALS: BP 161/69
[2016-10-06] MEDS: LEVOTHYROXINE 0.15 MG TAB (150 MCG) PO SCH (05:38)
[2016-10-06] MEDS: HumaLOG INSULIN (NovoLOG) PER UNIT SC SCH ×4 (08:20→20:27)
[2016-10-06] MEDS: LEVEMIR (INSULIN DETEMIR) 1 UNITS/0.01ML SC SCH ×2 (08:21→20:28)
[2016-10-06] MEDS: FERROUS SULFATE 325MG TAB PO SCH ×2 (08:22→20:15)
[2016-10-06] MEDS: CHLORTHALIDONE 25 MG TAB PO SCH (08:22)
[2016-10-06] MEDS: ASPIRIN 81 MG ENTERIC TAB PO SCH (08:22)
[2016-10-06] MEDS: ROSUVASTATIN 10 MG TAB (CRESTOR) PO SCH (08:22)
[2016-10-06] MEDS: GABAPENTIN 300 MG CAP PO SCH ×3 (08:22→20:15)
[2016-10-06] MEDS: DOCUSATE SODIUM 100 MG CAP PO SCH ×2 (08:22→20:05)
[2016-10-06] MEDS: PANTOPRAZOLE 40MG TAB (PROTONIX) PO SCH (08:22)
[2016-10-06] MEDS: LISINOPRIL 20 MG TAB PO SCH ×2 (08:22→20:07)
[2016-10-06] MEDS: CALCIUM/VITAMIN D 500 MG TAB PO SCH (08:22)
--- NOTE | 2016-10-06 13:56 | IPNPDOC ---
Barge Captain Progress Note DATE OF SERVICE: 10/06/2016 DATE OF ADMISSION: Sep 27, 2016 at 15:50 INPATIENT REHABILITATION ADMISSION DAY: #9 SUBJECTIVE: Patient is a 66-year-old white female with weakness due to polyneuropathy from diabetes and likely chemotherapy. Patient still complaining of episodic pain in the back at high levels 7 and 8 out of 10 but in general appears to be very comfortable and in little to no musculoskeletal distress. Patient is being encouraged daily to become more active and more responsible for her self-care: Including checking blood sugars, taking insulin, taking her medications on time, performing her ADLs and getting up and ambulating regularly throughout the day including every 4 hour voiding schedule. ALLERGIES: See Below MEDICATIONS: Reviewed, see below. OBJECTIVE: VITAL SIGNS: Please see below. PHYSICAL EXAMINATION: GENERAL: Overweight, middle-aged white female who is seen saying up in her room and later ambulating in physical therapy and is in no acute distress. HEENT: Normocephalic atraumatic with poor dilatation. CARDIOVASCULAR: Regular rate and rhythm with normal S1 and S2. 2 out 4 bilateral radial pulses. LUNGS: All joshi clear to auscultation. ABDOMEN: Obese, nontender with normal bowel sounds in all quadrants. NEUROLOGICAL: Patient is alert and oriented to person and place, but due to learning disabilities less aware of time and situation. Her balance is good and her ambulation is progressing well using the walker. Sensorium is still read reduced in the distal extremities. SKIN: Grossly intact. LABORATORY DATA: Reviewed. Please see below. MICROBIOLOGY: Please see below. IMAGING: No new. DVT prophylaxis ordered?: Aspirin ASSESSMENT AND PLAN: 1. Rehabilitation of weakness secondary to polyneuropathy: Patient's balance and endurance have improved significantly and she has reached her discharge goals as the remaining pieces of help care to arrange for her is the restarting of home care. She will have home assessment on Tuesday and at this time is to be discharged to home with her friend on Tuesday. 2. Diabetes: Her control has been improved during her hospitalization. Right now is trying to focus patient on continuing to watch her diet, check her blood sugar, and take her diabetic medication on schedule and inappropriate amounts. TIME SPENT: Chart Review, examination and documentation greater than 25 minutes. Allergies Coded Allergies: Penicillins (Verified Allergy, Intermediate, "FLIPS OUT", HIVES, 4/1/13) Penicillins Cross Reactors (Verified Allergy, Intermediate, "FLIPS OUT", HIVES, 09/18/12) Vital Signs Vital Signs Date Time Temp Pulse Resp B/P Pulse Ox O2 Delivery O2 Flow Rate FiO2 10/06/16 12:32 20 10/06/16 08:22 161/69 10/06/16 04:28 99.2 73 98 Room Air Laboratory Data Labs 24H Laboratory Tests 2 10/05/16 16:42: Bedside Glucose (Misc Panel) 305H 10/05/16 20:10: Bedside Glucose (Misc Panel) 292H 10/06/16 06:22: Bedside Glucose (Misc Panel) 198H 10/06/16 11:23: Bedside Glucose (Misc Panel) 239H Current Medications Current Medications Current Medications Alendronate Sodium (Fosamax) 70 mg Tu@07 PO Last administered on 10/05/16 06: 16; Start 09/28/16 at 07:00; Stop 10/28/16 at 06:59 Aspirin (Ecotrin) 81 mg DAILY PO Last administered on 10/06/16 08:22; Start at 09:00; Stop 10/28/16 at 08:59 Calcium/Vitamin D (Oscal D) 500 mg QAM PO Last administered on 10/06/16 08:22 ; Start 09/28/16 at 09:00; Stop 10/28/16 at 08:59 Chlorthalidone (Hygroton) 25 mg DAILY PO Last administered on 10/06/16 08:22; Start 09/28/16 at 09:00; Stop 10/28/16 at 08:59 Dextrose (Dextrose 50%) 25 ml ASDIRECTED PRN IV SEE LABEL COMMENTS; Start 09/27 at 13:30; Stop 10/27/16 at 13:29 Docusate Sodium (Colace) 100 mg BID PO Last administered on 10/06/16 08:22; Start 09/28/16 at 09:00; Stop 10/28/16 at 08:59 Ferrous Sulfate (Ferrous Sulfate) 325 mg BID PO Last administered on 10/06/16 08:22; Start 09/27/16 at 21:00; Stop 10/27/16 at 20:59 Gabapentin (Neurontin) 400 mg TID PO ; Start 09/27/16 at 16:00; Stop 09/27/16 at 16:32; Status DC Gabapentin (Neurontin) 400 mg TID PO Last administered on 09/30/16 15:47; Start 09/27/16 at 16:00; Stop 09/30/16 at 17:09; Status DC Gabapentin (Neurontin) 400 mg TID PO ; Start 09/27/16 at 16:32; Stop 09/27/16 at 17:22; Status DC Gabapentin (Neurontin) 600 mg TID PO Last administered on 10/06/16 08:22; Start 09/30/16 at 21:00; Stop 10/30/16 at 20:59 Glucagon (Glucagon) 1 mg ASDIRECTED PRN SC SEE LABEL COMMENTS; Start 09/27/16 at 13:30; Stop 10/27/16 at 13:29 Glucose (Glucose) 16 GM ASDIRECTED PRN PO SEE LABEL COMMENTS; Start 09/27/16 at 13:30; Stop 10/27/16 at 13:29 Home Med (Med Rec Complete!) ASDIRECTED XX ; Start 09/27/16 at 18:00; Stop 04/05 at 18:00; Status DC Insulin Detemir (Levemir Insulin) 20 units QAM SC Last administered on 08:21; Start 09/28/16 at 09:00; Stop 10/28/16 at 08:59 Insulin Detemir (Levemir Insulin) 30 units QHS SC Last administered on 22:15; Start 09/27/16 at 21:00; Stop 10/27/16 at 20:59 Insulin Human Lispro (HumaLOG INSULIN) AC SC Last administered on 09/27/16 17 :23; Start 09/27/16 at 17:30; Stop 09/27/16 at 20:51; Status DC Insulin Human Lispro (HumaLOG INSULIN) QHS SC ; Start 09/27/16 at 21:00; Stop 09/27/16 at 21:00; Status DC Insulin Human Lispro (HumaLOG INSULIN) See Protocol Table AC SC Last administered on 10/06/16 12:02; Start 09/28/16 at 07:30; Stop 10/28/16 at 07:29 Insulin Human Lispro (HumaLOG INSULIN) See Protocol Table QHS SC Last administered on 10/05/16 22:16; Start 09/27/16 at 21:00; Stop 10/27/16 at 20:59 Levofloxacin (Levaquin) 250 mg DAILY@18 PO Last administered on 09/29/16 17:41 ; Start 09/27/16 at 18:00; Stop 09/30/16 at 12:50; Status DC Levothyroxine Sodium (Synthroid) 0.3 mg DAILY@06 PO Last administered on 05:38; Start 09/28/16 at 06:00; Stop 10/28/16 at 05:59 Lisinopril (Prinivil) 20 mg BID PO Last administered on 10/06/16 08:22; Start 09/27/16 at 21:00; Stop 10/29/16 at 20:59 Magnesium Hydroxide (Milk Of Magnesia) 30 ml BIDP PRN PO CONSTIPATION Last administered on 10/01/16 08:25; Start 09/28/16 at 09:30; Stop 10/28/16 at 09:29 Meloxicam (Mobic) 7.5 mg DAILY PO Last administered on 10/01/16 08:22; Start 09/28/16 at 09:00; Stop 10/01/16 at 14:11; Status DC Meloxicam (Mobic) 7.5 mg DAILY PRN PO PAIN Last administered on 10/04/16 12:18 ; Start 10/01/16 at 14:15; Stop 10/31/16 at 14:14 Oxycodone HCl (Roxicodone, Oxyir) 5 mg BIDP PRN PO PAIN SCALE 6-10 Last administered on 10/04/16 06:30; Start 09/30/16 at 17:15; Stop 10/04/16 at 08:51 ; Status DC Oxycodone HCl (Roxicodone, Oxyir) 5 mg Q6HP PRN PO PAIN SCALE 6-10 Last administered on 09/30/16 15:48; Start 09/27/16 at 17:15; Stop 09/30/16 at 17:11 ; Status DC Pantoprazole Sodium (Protonix) 40 mg DAILY PO Last administered on 10/06/16 08 :22; Start 09/28/16 at 09:00; Stop 10/28/16 at 08:59 Polyethylene Glycol (Miralax) 1 pkt DAILYPRN PRN PO CONSTIPATION Last administered on 09/30/16 09:10; Start 09/28/16 at 09:30; Stop 10/28/16 at 09:29 Rosuvastatin Calcium (Crestor) 40 mg DAILY PO Last administered on 10/06/16 08 :22; Start 09/28/16 at 09:00; Stop 10/28/16 at 08:59 Tramadol HCl (Ultram) 50 mg Q6HP PRN PO MODERATE PAIN (PS 5-7) Last administered on 10/03/16 08:23; Start 09/27/16 at 14:30; Stop 10/04/16 at 14:18 ; Status DC Tramadol HCl (Ultram) 50 mg Q8HP PRN PO MODERATE PAIN (PS 5-7) Last administered on 10/06/16 12:02; Start 10/04/16 at 14:30; Stop 10/11/16 at 14:29 Vitamin D (Drisdol) 50,000 units @09 PO Last administered on 10/05/16 08:15 ; Start 09/28/16 at 09:00; Stop 10/28/16 at 08:59 FLORIN GUSMAN MD Oct 06, 2016 13:56
[2016-10-06 14:19] VITALS: BP 147/69
[2016-10-06 20:00] VITALS: BP 118/82
[2016-10-07] MEDS: traMADol 50 MG TAB PO PRN (04:15)
[2016-10-07] MEDS: LEVOTHYROXINE 0.15 MG TAB (150 MCG) PO SCH (05:03)
[2016-10-07 06:00] VITALS: BP 128/80
[2016-10-07] MEDS: CHLORTHALIDONE 25 MG TAB PO SCH (08:34)
[2016-10-07] MEDS: ASPIRIN 81 MG ENTERIC TAB PO SCH (08:34)
[2016-10-07] MEDS: LEVEMIR (INSULIN DETEMIR) 1 UNITS/0.01ML SC SCH ×2 (08:34→21:30)
[2016-10-07] MEDS: CALCIUM/VITAMIN D 500 MG TAB PO SCH (08:34)
[2016-10-07] MEDS: LISINOPRIL 20 MG TAB PO SCH ×2 (08:34→21:30)
[2016-10-07] MEDS: HumaLOG INSULIN (NovoLOG) PER UNIT SC SCH ×4 (08:34→21:32)
[2016-10-07] MEDS: FERROUS SULFATE 325MG TAB PO SCH ×2 (08:34→21:30)
[2016-10-07] MEDS: DOCUSATE SODIUM 100 MG CAP PO SCH ×2 (08:34→21:30)
[2016-10-07] MEDS: GABAPENTIN 300 MG CAP PO SCH ×3 (08:34→21:30)
[2016-10-07] MEDS: PANTOPRAZOLE 40MG TAB (PROTONIX) PO SCH (08:34)
[2016-10-07] MEDS: ROSUVASTATIN 10 MG TAB (CRESTOR) PO SCH (08:35)
[2016-10-07 14:00] VITALS: BP 111/61
--- NOTE | 2016-10-07 15:34 | IPNPDOC ---
Field Sales Consultant Progress Note DATE OF SERVICE: 10/07/2016 DATE OF ADMISSION: Sep 27, 2016 at 15:50 INPATIENT REHABILITATION ADMISSION DAY: #10 SUBJECTIVE: Patient is a 60 [id number] white female with polyneuropathy and weakness. Patient without complaints of pain, fever, malaise or other concerns. ALLERGIES: See Below MEDICATIONS: Reviewed, see below. OBJECTIVE: VITAL SIGNS: Please see below. PHYSICAL EXAMINATION: GENERAL: Obese middle-age white female in no acute distress. HEENT: Normal cephalic atraumatic with poor dilatation. CARDIOVASCULAR: Regular rate and rhythm with normal S1, S2. LUNGS: All joshi clear to auscultation. ABDOMEN: Benign, obese, nontender with normal bowel sounds in all quadrants. NEUROLOGICAL: Patient showed progressive ambulation skills. However concern is her self initiation on self-care activities. SKIN: Intact LABORATORY DATA: Reviewed. Please see below. MICROBIOLOGY: Please see below. IMAGING: No new ASSESSMENT AND PLAN: 1. Rehabilitation of polyneuropathy caused weakness: Patient admitted discharge goals and will be discharged to home with her friend tomorrow. Friend is going to be staying with her through the weekend. Home eval scheduled for Tuesday by home care agency. Patient is aware that she needs to be self initiating check her blood sugar take her meds on time and her insulin appropriate to her food and blood sugar. 2. Diabetes improved since admission. 3. Mentation: Patient with developmental deficits on cognition. TIME SPENT: Chart Review, examination and documentation greater than 25 minutes. Allergies Coded Allergies: Penicillins (Verified Allergy, Intermediate, "FLIPS OUT", HIVES, 09/18/12) Penicillins Cross Reactors (Verified Allergy, Intermediate, "FLIPS OUT", HIVES, 09/18/12) Vital Signs Vital Signs Date Time Temp Pulse Resp B/P Pulse Ox O2 Delivery O2 Flow Rate FiO2 10/07/16 14:00 98.1 79 18 111/61 99 Room Air Laboratory Data Labs 24H Laboratory Tests 2 10/06/16 16:29: Bedside Glucose (Misc Panel) 306H 10/06/16 20:22: Bedside Glucose (Misc Panel) 327H 10/07/16 06:27: Bedside Glucose (Misc Panel) 232H 10/07/16 11:24: Bedside Glucose (Misc Panel) 176H Current Medications Current Medications Current Medications Alendronate Sodium (Fosamax) 70 mg Tu@07 PO Last administered on 10/05/16 06: 16; Start 09/28/16 at 07:00; Stop 10/28/16 at 06:59 Aspirin (Ecotrin) 81 mg DAILY PO Last administered on 10/07/16 08:34; Start at 09:00; Stop 10/28/16 at 08:59 Calcium/Vitamin D (Oscal D) 500 mg QAM PO Last administered on 10/07/16 08:34 ; Start 09/28/16 at 09:00; Stop 10/28/16 at 08:59 Chlorthalidone (Hygroton) 25 mg DAILY PO Last administered on 10/07/16 08:34; Start 09/28/16 at 09:00; Stop 10/28/16 at 08:59 Dextrose (Dextrose 50%) 25 ml ASDIRECTED PRN IV SEE LABEL COMMENTS; Start 09/27 at 13:30; Stop 10/27/16 at 13:29 Docusate Sodium (Colace) 100 mg BID PO Last administered on 10/07/16 08:34; Start 09/28/16 at 09:00; Stop 10/28/16 at 08:59 Ferrous Sulfate (Ferrous Sulfate) 325 mg BID PO Last administered on 10/07/16 08:34; Start 09/27/16 at 21:00; Stop 10/27/16 at 20:59 Gabapentin (Neurontin) 400 mg TID PO ; Start 09/27/16 at 16:00; Stop 09/27/16 at 16:32; Status DC Gabapentin (Neurontin) 400 mg TID PO Last administered on 09/30/16 15:47; Start 09/27/16 at 16:00; Stop 09/30/16 at 17:09; Status DC Gabapentin (Neurontin) 400 mg TID PO ; Start 09/27/16 at 16:32; Stop 09/27/16 at 17:22; Status DC Gabapentin (Neurontin) 600 mg TID PO Last administered on 10/07/16 08:34; Start 09/30/16 at 21:00; Stop 10/30/16 at 20:59 Glucagon (Glucagon) 1 mg ASDIRECTED PRN SC SEE LABEL COMMENTS; Start 09/27/16 at 13:30; Stop 10/27/16 at 13:29 Glucose (Glucose) 16 GM ASDIRECTED PRN PO SEE LABEL COMMENTS; Start 09/27/16 at 13:30; Stop 10/27/16 at 13:29 Home Med (Med Rec Complete!) ASDIRECTED XX ; Start 09/27/16 at 18:00; Stop 04/05 at 18:00; Status DC Insulin Detemir (Levemir Insulin) 20 units QAM SC Last administered on 08:34; Start 09/28/16 at 09:00; Stop 10/28/16 at 08:59 Insulin Detemir (Levemir Insulin) 30 units QHS SC Last administered on 20:28; Start 09/27/16 at 21:00; Stop 10/27/16 at 20:59 Insulin Human Lispro (HumaLOG INSULIN) AC SC Last administered on 09/27/16 17 :23; Start 09/27/16 at 17:30; Stop 09/27/16 at 20:51; Status DC Insulin Human Lispro (HumaLOG INSULIN) QHS SC ; Start 09/27/16 at 21:00; Stop 09/27/16 at 21:00; Status DC Insulin Human Lispro (HumaLOG INSULIN) See Protocol Table AC SC Last administered on 10/07/16 11:49; Start 09/28/16 at 07:30; Stop 10/28/16 at 07:29 Insulin Human Lispro (HumaLOG INSULIN) See Protocol Table QHS SC Last administered on 10/06/16 20:27; Start 09/27/16 at 21:00; Stop 10/27/16 at 20:59 Levofloxacin (Levaquin) 250 mg DAILY@18 PO Last administered on 09/29/16 17:41 ; Start 09/27/16 at 18:00; Stop 09/30/16 at 12:50; Status DC Levothyroxine Sodium (Synthroid) 0.3 mg DAILY@06 PO Last administered on 05:03; Start 09/28/16 at 06:00; Stop 10/28/16 at 05:59 Lisinopril (Prinivil) 20 mg BID PO Last administered on 10/07/16 08:34; Start 09/27/16 at 21:00; Stop 10/29/16 at 20:59 Magnesium Hydroxide (Milk Of Magnesia) 30 ml BIDP PRN PO CONSTIPATION Last administered on 10/01/16 08:25; Start 09/28/16 at 09:30; Stop 10/28/16 at 09:29 Meloxicam (Mobic) 7.5 mg DAILY PO Last administered on 10/01/16 08:22; Start 09/28/16 at 09:00; Stop 10/01/16 at 14:11; Status DC Meloxicam (Mobic) 7.5 mg DAILY PRN PO PAIN Last administered on 10/04/16 12:18 ; Start 10/01/16 at 14:15; Stop 10/31/16 at 14:14 Oxycodone HCl (Roxicodone, Oxyir) 5 mg BIDP PRN PO PAIN SCALE 6-10 Last administered on 10/04/16 06:30; Start 09/30/16 at 17:15; Stop 10/04/16 at 08:51 ; Status DC Oxycodone HCl (Roxicodone, Oxyir) 5 mg Q6HP PRN PO PAIN SCALE 6-10 Last administered on 09/30/16 15:48; Start 09/27/16 at 17:15; Stop 09/30/16 at 17:11 ; Status DC Pantoprazole Sodium (Protonix) 40 mg DAILY PO Last administered on 10/07/16 08 :34; Start 09/28/16 at 09:00; Stop 10/28/16 at 08:59 Polyethylene Glycol (Miralax) 1 pkt DAILYPRN PRN PO CONSTIPATION Last administered on 09/30/16 09:10; Start 09/28/16 at 09:30; Stop 10/28/16 at 09:29 Rosuvastatin Calcium (Crestor) 40 mg DAILY PO Last administered on 10/07/16 08 :35; Start 09/28/16 at 09:00; Stop 10/28/16 at 08:59 Tramadol HCl (Ultram) 50 mg Q6HP PRN PO MODERATE PAIN (PS 5-7) Last administered on 10/03/16 08:23; Start 09/27/16 at 14:30; Stop 10/04/16 at 14:18 ; Status DC Tramadol HCl (Ultram) 50 mg Q8HP PRN PO MODERATE PAIN (PS 5-7) Last administered on 10/07/16 04:15; Start 10/04/16 at 14:30; Stop 10/11/16 at 14:29 Vitamin D (Drisdol) 50,000 units @09 PO Last administered on 10/05/16 08:15 ; Start 09/28/16 at 09:00; Stop 10/28/16 at 08:59 FLORIN GUSMAN MD Oct 07, 2016 15:34
--- NOTE | 2016-10-07 15:45 | IPNPDOC ---
Subjective Date Seen The patient was seen on 10/07/16. Subjective Chief Complaint/HPI The patient is a 66-year-old female admitted with a reason for visit of Polyneuropathy 2ND To Chemotherapy. Events since last encounter Pt with no new complaints. States she has been doing well. Pulmonary: Denies: Cough, Dyspnea Cardiovascular: Denies: Chest Pain, Lt Headedness, Orthopnea, Palpitations, Paroxysmal Noc. Dyspnea Gastrointestinal: Denies: Abdominal Pain, Constipation, Diarrhea, Nausea, Vomiting Genitourinary: Denies: Dysuria, Frequency, Incontinence, Retention Objective Physical Examination General Exam: Positive: Alert Eye Exam: Positive: PERRLA ENT Exam: Positive: Atraumatic, Mucous membr. moist/pink Neck Exam: Positive: Supple Chest Exam: Positive: Clear to auscultation, Normal air movement Heart Exam: Positive: Normal S1, Normal S2, Rate Normal, Regular Rhythm, Negative: Murmurs, Rubs Abdomen Exam: Positive: Normal bowel sounds, Soft, Negative: Hepatospenomegaly, Tenderness Extremity Exam: Negative: Edema Skin Exam: Positive: Nl turgor and temperature Assessment /Plan Problems (1) Weakness Status: Chronic Problem Text: * Rehab as per ARU (2) Polyneuropathy Status: Chronic Problem Text: * gabapentin * tramadol * Mobic (3) Dysphagia Status: Chronic Problem Text: * ST mech soft diet (4) Anemia Status: Chronic Problem Text: * Fe supplement * Hgb trend upward (5) Urinary retention Status: Resolved (6) Dyslipidemia Status: Chronic Problem Text: * statin (7) Diabetes Status: Chronic Problem Text: * diet * SSI * Levemir (8) H/O malignant neoplasm of breast Status: Chronic (9) Hypothyroid Status: Chronic Problem Text: * cont supplement (10) HTN (hypertension) Status: Chronic Response to Treatment: Stable Problem Text: * chlorthalidone * Lisinopril * BP controlled * Serum creatinine 0.86 (11) UTI (urinary tract infection) Status: Acute Problem Text: * Klebsiella. * Levaquin completed 09/30/15. Plan/VTE VTE Prophylaxis Ordered?: Yes (SCD/TEDS) VS, I&O, 24H, Fishbone Vital Signs/I&O Vital Signs Date Time Temp Pulse Resp B/P Pulse Ox O2 Delivery O2 Flow Rate FiO2 10/07/16 14:00 98.1 79 18 111/61 99 Room Air I&O- Last 24 Hours up to 6 AM 10/07/16 06:00 Intake Total 1320 ml Output Total 1700 ml Balance -380 ml Laboratory Data 24H LABS Laboratory Tests 2 10/06/16 16:29: Bedside Glucose (Misc Panel) 306H 10/06/16 20:22: Bedside Glucose (Misc Panel) 327H 10/07/16 06:27: Bedside Glucose (Misc Panel) 232H 10/07/16 11:24: Bedside Glucose (Misc Panel) 176H Michelle Adams Oct 07, 2016 15:45
[2016-10-08 06:00] VITALS: BP 100/60
[2016-10-08] MEDS: LEVOTHYROXINE 0.15 MG TAB (150 MCG) PO SCH (06:02)
[2016-10-08] MEDS: HumaLOG INSULIN (NovoLOG) PER UNIT SC SCH ×2 (08:29→12:19)
[2016-10-08] MEDS: LEVEMIR (INSULIN DETEMIR) 1 UNITS/0.01ML SC SCH (08:30)
[2016-10-08 08:31] VITALS: BP 110/60
[2016-10-08] MEDS: FERROUS SULFATE 325MG TAB PO SCH (08:31)
[2016-10-08] MEDS: CALCIUM/VITAMIN D 500 MG TAB PO SCH (08:31)
[2016-10-08] MEDS: ASPIRIN 81 MG ENTERIC TAB PO SCH (08:31)
[2016-10-08] MEDS: ROSUVASTATIN 10 MG TAB (CRESTOR) PO SCH (08:31)
[2016-10-08] MEDS: PANTOPRAZOLE 40MG TAB (PROTONIX) PO SCH (08:31)
[2016-10-08] MEDS: GABAPENTIN 300 MG CAP PO SCH (08:31)
[2016-10-08] MEDS: DOCUSATE SODIUM 100 MG CAP PO SCH (08:31)
[2016-10-08] MEDS: CHLORTHALIDONE 25 MG TAB PO SCH (08:31)
[2016-10-08] MEDS: LISINOPRIL 20 MG TAB PO SCH (08:31)
[2016-10-08] MEDS ORDERED: GLUC1VL SC (09:09)
--- NOTE | 2016-10-08 10:14 | PMRDS ---
DATE OF ADMISSION: 09/27/2016 DATE OF DISCHARGE: 10/08/2016 DISCHARGE DIAGNOSES: 1. Rehabilitation of polyneuropathy secondary to type 2 diabetes and probable effects of chemotherapy from breast cancer treatment. 1a. Weakness secondary to polyneuropathy. 2. Diabetes mellitus type 2. 3. Acute kidney injury. 4. Anemia. 5. Hyperlipidemia. 6. Pneumonia which has resolved. 7. Hypothyroidism. 8. Hypertension. 9. Asthma. 10. 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 HISTORY: Patient is a 66-year-old white female with 4 year history of type 2 diabetes which has not been well managed as evidenced by admission to [facility] of hemoglobin A1c 13.6. Patient had been becoming weaker and having more difficulties functioning at home and was admitted to [facility] on 09/20/2016 for generalized weakness, dysphasia, acute kidney disease, urinary tract infection, diabetes out of control, iron deficiency anemia and pneumonia. As patient medically stabilized, the weakness remained and patient was functioning now at lowered level in mobility and activities of daily living (ADL)s and so was accepted to the acute rehabilitation unit for a course of rehabilitation to overcome deficits mainly related to the polyneuropathy. Pertinent physical examination showed stocking glove sensory decline for the distal two-thirds of the leg and into the feet and the distal third of the forearm into the hand along with shoulder weakness and general deconditioning. Patient also with some developmental deficits of cognition has made learning difficult for her. PROCEDURES PERFORMED ON THIS UNITS: None. SIGNIFICANT DIAGNOSTIC AND LABORATORY DATA: Shows hemoglobin A1c as dropped from 13.6 to 12.6 in the course of approximately 2 weeks of having her on stable management at [facility]. HOSPITAL COURSE: Patient admitted to the acute rehabilitation unit on 2016 and assessed by speech therapy for cognition and swallowing. Patient made rapid progress and was discontinued as remaining cognitive deficits are chronic from her developmental disorder which is unspecified. Physical therapy noted patient with 4 minus out of 5 lower extremity strength and only able to ambulate 55 feet with assistance and walker and being contact guard assist for all transfers. During the course of admission, patient has improved lower extremity strength and is now transferring dependently to modify independent and ambulating 150 feet times two with walker and able to do stairs all with modified assistance. Occupational therapy (OT), patient with 3+/5 upper extremity strength except for gaining only about 2+/3 minus in the shoulder. This has improved and patient went from activities of daily living being contact guard assist to independent and from fair plus dynamic standing bounds to good. It is noted that patient does have difficulties with higher level of cognitive functioning and activities of daily living such as her medication management and will require home care services plus has room for further improvement in strength, pain of the upper and lower extremity and reconditioning. DISCHARGE MEDICATIONS: - gabapentin 300 mg capsules two capsules by mouth every 8 hours for neurogenic pain from polyneuropathy - glucagon 1 mg injection in case of hypoglycemia - meloxicam 7.5 mg by mouth daily as needed pain - tramadol 50 mg by mouth every 6 hours as needed moderate pain - alendronate sodium 70 mg by mouth weekly - aspirin 81 mg by mouth daily - calcium 600 plus vitamin D 600-400 mg unit one tablet by mouth daily - chlorthalidone 25 mg daily by mouth - iron sulfate 325 mg by mouth twice daily - Levemir insulin 30 units subcutaneous daily at bedtime - Levemir insulin 20 units subcutaneous daily every morning - insulin sliding scale before meals and at bedtime - levothyroxine 300 mcg daily - lisinopril 20 mg by mouth twice daily for hypertension - pantoprazole 40 mg daily for gastroesophageal reflux disease (GERD) - Crestor 40 mg by mouth daily for hyperlipidemia - vitamin D Drisdol 50,000 unit capsule by mouth weekly COMPLICATIONS: None. DISCHARGE PLAN AND INSTRUCTIONS: Patient is discharged to home today to be accompanied by her friend who lives in the housing complex she does. He will be staying with her and tomorrow patient is to have home care evaluation for potential home care nursing for medication set up for her along with physical therapy (PT) and occupational therapy (OT) for continuing conditioning and strengthening. Also patient to see primary care KIRAN Paez in approximately 2 weeks for followup. TIME SPENT ON DISCHARGE: Greater than 35 minutes. RAMESH
[2016-10-08 14:10] VITALS: BP 110/70
== END 2016-10-08 15:55 | disposition home health service (06) | DRG 73 ==
LOC: M PM&R 15:50
PROVIDERS: ADMIT Physical Medicine & Rehabilitation; ATTEND Physical Medicine & Rehabilitation
DX: E11.42 Type 2 diabetes mellitus with diabetic polyneuropathy (principal); J18.9 Pneumonia, unspecified organism; N39.0 Urinary tract infection, site not specified; J45.909 Unspecified asthma, uncomplicated; I10 Essential (primary) hypertension; E66.9 Obesity, unspecified; R53.1 Weakness; R13.10 Dysphagia, unspecified; R33.9 Retention of urine, unspecified; M85.80 Other specified disorders of bone density and structure, unspecified site; F89 Unspecified disorder of psychological development; M17.11 Unilateral primary osteoarthritis, right knee; M19.011 Primary osteoarthritis, right shoulder; D50.9 Iron deficiency anemia, unspecified; M54.9 Dorsalgia, unspecified; E78.5 Hyperlipidemia, unspecified; E03.9 Hypothyroidism, unspecified; B96.1 Klebsiella pneumoniae [K. pneumoniae] as the cause of diseases classified elsewhere; Z85.3 Personal history of malignant neoplasm of breast; Z92.21 Personal history of antineoplastic chemotherapy; Z90.12 Acquired absence of left breast and nipple; Z79.82 Long term (current) use of aspirin; Z79.4 Long term (current) use of insulin; Z79.891 Long term (current) use of opiate analgesic; Z79.899 Other long term (current) drug therapy; Z90.49 Acquired absence of other specified parts of digestive tract; Z88.0 Allergy status to penicillin

== ENCOUNTER → 2016-12-27 | Outpatient (REF) | payer MEDICARE, OTHER, MEDICAID ==
[~2016-12-27] MED LIST changes: -ACET650T2 PO; +ACET650T3 PO; +FERR1TAB8 PO; -FERR325T PO; +GLUC1VL SC; +LEVA1TAB PO; -LEVA250T PO; +MELO7.5T7 PO; +TRAM50TA2 PO; +VITA1CAP40; -VITA50003
[2016-12-27 15:23] LABS: ANION GAP 8 MEQ/L (8-16); BLOOD UREA NITROGEN 23 MG/DL (7-18); CALCIUM LEVEL 9.7 MG/DL (8.8-10.2); CARBON DIOXIDE LEVEL 27 MEQ/L (21-32); CHLORIDE LEVEL 108 MEQ/L (98-107); GLOMERULAR FILTRATION RATE > 60.0 (>45); GLUCOSE, FASTING 109 MG/DL (80-110); POTASSIUM SERUM 4.3 MEQ/L (3.5-5.1); SODIUM LEVEL 143 MEQ/L (136-145)
== END ==
LOC: M LAB REF 14:07
PROVIDERS: ATTEND Nurse Practitioner Family
DX: E89.0 Postprocedural hypothyroidism (principal); E11.65 Type 2 diabetes mellitus with hyperglycemia

== ENCOUNTER 2017-05-17 09:27 | Emergency (ER) | payer MEDICARE, MEDICAID ==
[~2017-05-17] VITALS: Ht 162.6 cm; Wt 82.5 kg
--- NOTE | 2017-05-17 10:41 | REP ---
RIGHT HUMERUS, TWO VIEWS: HISTORY: Fall. There is no acute fracture or dislocation. There is narrowing of the acromioclavicular joint space. The remaining joint spaces are normal in appearance. IMPRESSION: There is no acute fracture or dislocation. Signed by Moses Leong MD 05/17/2017 11:02 A
--- NOTE | 2017-05-17 10:42 | REP ---
RIGHT FOREARM, TWO VIEWS: HISTORY: Fall. There is no acute fracture or dislocation. The joint spaces are normal in appearance. IMPRESSION: There is no acute fracture or dislocation. Signed by Moses Leong MD 05/17/2017 11:03 A
--- NOTE | 2017-05-17 10:43 | REP ---
RIGHT TIBIA/FIBULA, FOUR VIEWS: HISTORY: Fall. There is no acute fracture or dislocation. There is narrowing of the patellofemoral joint space with associated osteophyte formation. Osteophytes are present on the inferior and posterior calcaneus. IMPRESSION: There is no acute fracture or dislocation. Signed by Moses Leong MD 05/17/2017 11:03 A
[2017-05-17 11:41] VITALS: BP 141/75
--- NOTE | 2017-05-17 16:29 | REP ---
Right foot series: Four views. History: Pain after a fall. Findings: Four views of the right foot demonstrate plantar and Achilles calcaneal spurring. There is extensive vascular calcification extending across the ankle. Overall mineralization pattern is normal. No fracture is seen. Impression: No fracture noted. Heel spurs. Vascular calcification. Signed by Darryn Gonzalez MD 05/17/2017 04:19 P
== END 2017-05-17 11:43 | disposition home or self-care (01) ==
LOC: M ED 09:27
DX: S43.491A Other sprain of right shoulder joint, initial encounter (principal); S93.491A Sprain of other ligament of right ankle, initial encounter; S80.01XA Contusion of right knee, initial encounter; W01.198A Fall on same level from slipping, tripping and stumbling with subsequent striking against other object, initial encounter; Y92.410 Unspecified street and highway as the place of occurrence of the external cause; Y93.01 Activity, walking, marching and hiking; Y99.9 Unspecified external cause status

== ENCOUNTER → 2017-06-22 | Outpatient (REF) | payer OTHER, MEDICAID ==
[2017-06-22 14:26] LABS: ALBUMIN 3.7 GM/DL (3.2-5.2); ALBUMIN/GLOBULIN RATIO 1.09 (1.00-1.93); ALKALINE PHOSPHATASE 75 U/L (45-117); ALT/SGPT 22 U/L (12-78); ANION GAP 7 MEQ/L (8-16); AST/SGOT 17 U/L (7-37); BILIRUBIN,TOTAL 0.6 MG/DL (0.2-1.0); BLOOD UREA NITROGEN 30 MG/DL (7-18); CALCIUM LEVEL 9.4 MG/DL (8.8-10.2); CARBON DIOXIDE LEVEL 29 MEQ/L (21-32); CHLORIDE LEVEL 106 MEQ/L (98-107); GLOMERULAR FILTRATION RATE 52.7 (>45); GLUCOSE, FASTING 221 MG/DL (80-110); POTASSIUM SERUM 4.7 MEQ/L (3.5-5.1); SODIUM LEVEL 142 MEQ/L (136-145); TOTAL PROTEIN 7.1 GM/DL (6.4-8.2)
[2017-06-22 14:56] LABS: ESTIMATED AVERAGE GLUCOSE 258 MG/DL (60-110); HEMOGLOBIN A1c 10.6 %
== END ==
LOC: M LAB REF 12:54
DX: E11.65 Type 2 diabetes mellitus with hyperglycemia (principal); I10 Essential (primary) hypertension

== ENCOUNTER → 2017-07-19 | Outpatient (CLI) | payer OTHER, MEDICAID | LOC: M RAD 13:19 | DX: N63.31 Unspecified lump in axillary tail of the right breast (principal); Z12.39 Encounter for other screening for malignant neoplasm of breast | CPT/HCPCS: 77065 ==

== ENCOUNTER 2017-07-29 01:39 | Emergency (ER) | payer OTHER, MEDICAID ==
[2017-07-29] MEDS: NS 500 ML IV (06:45)
[2017-07-29 07:40] LABS: BASO % 0.5 % (0.0-1.0); EOS # 0.1 10^3/uL (0.0-0.50); EOS % 2.6 % (0.0-3.0); HEMATOCRIT 33.3 % (36.0-47.0); HEMOGLOBIN 10.9 g/dl (12.0-16.0); IMMATURE GRANULOCYTE % 0.3 % (0-3.0); LYMPH # 1.6 10^3/uL (1.5-4.5); MEAN CORPUSCULAR HEMOGLOBIN 26.4 pg (27.0-33.0); MEAN CORPUSCULAR HGB CONC 32.7 g/dl (32.0-36.5); MEAN CORPUSCULAR VOLUME 80.6 fl (80.0-96.0); MONO # 0.4 10^3/uL (0.0-0.8); MONO % 10.4 % (0.0-5.0); NEUTROPHILS # 1.7 10^3/uL (1.8-7.7); NEUTROPHILS % 45.2 % (36.0-66.0); PLATELET COUNT, AUTOMATED 160 10^3/uL (150-450); RED BLOOD COUNT 4.13 10^6/uL (4.00-5.40); RED CELL DISTRIBUTION WIDTH 13.1 % (11.5-14.5); WHITE BLOOD COUNT 3.9 10^3/uL (4.0-10.0)
[2017-07-29 07:56] LABS: ANION GAP 8 MEQ/L (8-16); BLOOD UREA NITROGEN 33 MG/DL (7-18); CALCIUM LEVEL 8.7 MG/DL (8.8-10.2); CARBON DIOXIDE LEVEL 25 MEQ/L (21-32); CHLORIDE LEVEL 105 MEQ/L (98-107); CREATININE FOR GFR 1.02 MG/DL (0.55-1.30); GLOMERULAR FILTRATION RATE 57.5 (>45); GLUCOSE, FASTING 167 MG/DL (70-100); POTASSIUM SERUM 4.1 MEQ/L (3.5-5.1); SODIUM LEVEL 138 MEQ/L (136-145)
[2017-07-29 08:00] LABS: LACTIC ACID SEPSIS PROTOCOL 1.7 MMOL/L (0.4-2.0)
[2017-07-29 08:14] LABS: INFLUENZA A AMPLIFICATION POSITIVE (NEGATIVE); INFLUENZA B AMPLIFICATION NEGATIVE (NEGATIVE)
[2017-07-29] MEDS: OSELTAMIVIR PHOSPHATE 75 MG CAP (TAMIFLU) PO (08:30)
== END 2017-07-29 08:43 | disposition home or self-care (01) ==
LOC: M ED 01:39
DX: J09.X2 Influenza due to identified novel influenza A virus with other respiratory manifestations (principal); I10 Essential (primary) hypertension; E11.9 Type 2 diabetes mellitus without complications; E78.5 Hyperlipidemia, unspecified; K21.9 Gastro-esophageal reflux disease without esophagitis; M81.0 Age-related osteoporosis without current pathological fracture; M54.9 Dorsalgia, unspecified; G89.29 Other chronic pain; D64.9 Anemia, unspecified; Z88.0 Allergy status to penicillin; Z79.899 Other long term (current) drug therapy; Z79.4 Long term (current) use of insulin; Z79.82 Long term (current) use of aspirin
CPT/HCPCS: 71046

== ENCOUNTER → 2017-09-02 | Outpatient (REF) | payer MEDICARE, MEDICAID ==
[2017-09-02 14:36] LABS: CHOLESTEROL LEVEL 80 MG/DL (<200); HDL CHOLESTEROL 40 MG/DL (>40); LDL CHOLESTEROL 19.2 MG/DL (<100); NON-HDL-C 40 MG/DL; TRIGLYCERIDES LEVEL 104 MG/DL (<150)
== END ==
LOC: M LAB REF 14:14
DX: E78.5 Hyperlipidemia, unspecified (principal)
CPT/HCPCS: 80061

== ENCOUNTER → 2017-10-04 | Outpatient (REF) | payer MEDICARE, MEDICAID, OTHER ==
[2017-10-04 10:07] LABS: ALBUMIN 3.7 GM/DL (3.2-5.2); ALBUMIN/GLOBULIN RATIO 1.09 (1.00-1.93); ALKALINE PHOSPHATASE 66 U/L (45-117); ALT/SGPT 19 U/L (12-78); ANION GAP 7 MEQ/L (8-16); AST/SGOT 16 U/L (7-37); BILIRUBIN,TOTAL 0.6 MG/DL (0.2-1.0); BLOOD UREA NITROGEN 24 MG/DL (7-18); CARBON DIOXIDE LEVEL 25 MEQ/L (21-32); CHLORIDE LEVEL 111 MEQ/L (98-107); CREATININE FOR GFR 0.99 MG/DL (0.55-1.30); GLOMERULAR FILTRATION RATE 59.6 (>45); GLUCOSE, FASTING 105 MG/DL (70-100); POTASSIUM SERUM 4.3 MEQ/L (3.5-5.1); SODIUM LEVEL 143 MEQ/L (136-145); THYROID STIMULATING HORMONE 0.011 uIU/ML (0.358-3.740); TOTAL PROTEIN 7.1 GM/DL (6.4-8.2)
[2017-10-04 10:32] LABS: ESTIMATED AVERAGE GLUCOSE 220 MG/DL (60-110); HEMOGLOBIN A1c 9.3 %
== END ==
LOC: SKLABADC 08:42
DX: E11.65 Type 2 diabetes mellitus with hyperglycemia (principal); E89.0 Postprocedural hypothyroidism
CPT/HCPCS: 84443

== ENCOUNTER → 2017-11-22 | Outpatient (CLI) | payer MEDICARE, MEDICAID, OTHER | LOC: M EKG 14:12 | DX: Z01.818 Encounter for other preprocedural examination (principal) | CPT/HCPCS: 93005 ==

== ENCOUNTER → 2017-11-22 | Outpatient (REF) | payer MEDICARE, MEDICAID, OTHER ==
[2017-11-22 13:01] LABS: INR 1.05; PROTHROMBIN TIME 13.8 SECONDS (12.4-14.5)
[2017-11-22 13:24] LABS: ALBUMIN 3.8 GM/DL (3.2-5.2); ALBUMIN/GLOBULIN RATIO 1.19 (1.00-1.93); ALKALINE PHOSPHATASE 59 U/L (45-117); ALT/SGPT 26 U/L (12-78); ANION GAP 9 MEQ/L (8-16); AST/SGOT 18 U/L (7-37); BILIRUBIN,TOTAL 0.8 MG/DL (0.2-1.0); BLOOD UREA NITROGEN 42 MG/DL (7-18); CARBON DIOXIDE LEVEL 24 MEQ/L (21-32); CHLORIDE LEVEL 109 MEQ/L (98-107); CREATININE FOR GFR 1.01 MG/DL (0.55-1.30); GLOMERULAR FILTRATION RATE 58.2 (>45); GLUCOSE, FASTING 125 MG/DL (70-100); POTASSIUM SERUM 4.4 MEQ/L (3.5-5.1); SODIUM LEVEL 142 MEQ/L (136-145); THYROID STIMULATING HORMONE 0.011 uIU/ML (0.358-3.740)
[2017-11-22 13:25] LABS: ESTIMATED AVERAGE GLUCOSE 240 MG/DL (60-110)
== END ==
LOC: M LAB REF 12:26
DX: Z01.818 Encounter for other preprocedural examination (principal); E89.0 Postprocedural hypothyroidism; Z79.01 Long term (current) use of anticoagulants
CPT/HCPCS: 84443

== ENCOUNTER 2018-03-31 11:07 | Emergency (ER) | payer MEDICARE, MEDICAID, OTHER ==
[2018-03-31] MEDS: MAGIC MOUTHWASH SUSPENSION BTL SS (13:13)
[2018-03-31 13:37] LABS: HEMATOCRIT 29.3 % (36.0-47.0); HEMOGLOBIN 9.9 g/dl (12.0-15.5); MEAN CORPUSCULAR HEMOGLOBIN 27.5 pg (27.0-33.0); MEAN CORPUSCULAR HGB CONC 33.8 g/dl (32.0-36.5); MEAN CORPUSCULAR VOLUME 81.4 fl (80.0-96.0); RED CELL DISTRIBUTION WIDTH 14.5 % (11.5-14.5)
[2018-03-31 13:53] LABS: ANION GAP 10 MEQ/L (8-16); BLOOD UREA NITROGEN 31 MG/DL (7-18); CALCIUM LEVEL 8.5 MG/DL (8.8-10.2); CARBON DIOXIDE LEVEL 20 MEQ/L (21-32); CHLORIDE LEVEL 109 MEQ/L (98-107); CREATININE FOR GFR 0.98 MG/DL (0.55-1.30); GLOMERULAR FILTRATION RATE > 60.0 (>45); GLUCOSE, FASTING 203 MG/DL (70-100); POTASSIUM SERUM 4.5 MEQ/L (3.5-5.1); SODIUM LEVEL 139 MEQ/L (136-145)
[2018-03-31 14:03] LABS: POS COUNT POS FLAG; POSITIVE DIFF POS FLAG; POSITIVE MORPH POS FLAG; WHITE BLOOD COUNT 1.6 10^3/uL (4.0-10.0)
[2018-03-31 14:04] LABS: ADD MANUAL DIFFER YES; DIFF SLIDE NUMBER 220
[2018-03-31 14:09] LABS: ATYPICAL LYMPH 5 % (0-5); EOSINOPHILS 17 % (0-5); LYMPHOCYTES 30 % (16-52); MONOCYTES 2 % (0-8); NEUTROPHILS 46 % (35-75)
[2018-03-31 14:10] LABS: PLATELET ESTIMATE INVALID (NORMAL)
[2018-03-31 15:29] LABS: PLTBLUE- EDTA FREE CALC 52 K/mm3 (172-450)
[2018-03-31 15:35] LABS: PLTBLUE- EDTA FREE MACHINE 47 10^3/uL (172-450)
== END 2018-03-31 16:41 | disposition home or self-care (01) ==
LOC: M ED 11:07
DX: K13.70 Unspecified lesions of oral mucosa (principal); C50.919 Malignant neoplasm of unspecified site of unspecified female breast; E11.9 Type 2 diabetes mellitus without complications; I10 Essential (primary) hypertension; E07.9 Disorder of thyroid, unspecified; F41.9 Anxiety disorder, unspecified; Z88.0 Allergy status to penicillin; Z79.899 Other long term (current) drug therapy; Z79.4 Long term (current) use of insulin
CPT/HCPCS: 80048

== ENCOUNTER 2018-04-04 16:28 | Inpatient (IN) | payer MEDICARE, MEDICAID ==
[2018-04-04 16:53] LABS: BEDSIDE GLUCOSE 292 MG/DL (80-115)
[2018-04-04 17:40] LABS: VENOUS BASE EXCESS -4.4 (-2.0-2.0); VENOUS HCO3 19.7 MEQ/L (23.0-27.0); VENOUS O2 SATURATION 90.5 % (60.0-80.0); VENOUS PARTIAL PRESSURE CO2 32.1 mmHg (38.0-50.0); VENOUS PARTIAL PRESSURE O2 60.1 mmHg (30.0-50.0); VENOUS PH 7.405 UNITS (7.330-7.430); VENOUS STANDARD HCO3 20.7 MEQ/L; VENOUS TOTAL CO2 20.6 MEQ/L (24.0-28.0)
[2018-04-04 17:41] LABS: HEMOGLOBIN 8.1 g/dl (12.0-15.5); MEAN CORPUSCULAR HEMOGLOBIN 27.4 pg (27.0-33.0); MEAN CORPUSCULAR HGB CONC 35.2 g/dl (32.0-36.5); MEAN CORPUSCULAR VOLUME 77.7 fl (80.0-96.0); RED BLOOD COUNT 2.96 10^6/uL (4.00-5.40); RED CELL DISTRIBUTION WIDTH 13.8 % (11.5-14.5)
[2018-04-04 17:44] LABS: ADD MANUAL DIFFER YES; DIFF SLIDE NUMBER 356; PLATELET COUNT, AUTOMATED 77 10^3/uL (150-450); POS COUNT POS FLAG; POSITIVE DIFF POS FLAG; POSITIVE MORPH POS FLAG; WHITE BLOOD COUNT 0.6 10^3/uL (4.0-10.0)
[2018-04-04 18:09] LABS: LACTIC ACID SEPSIS PROTOCOL 1.7 MMOL/L (0.4-2.0)
[2018-04-04 18:20] LABS: ATYPICAL LYMPH 20 % (0-5); BANDS 12 % (< 11); EOSINOPHILS 4 % (0-5); HYPOCHROMASIA 2+; LYMPHOCYTES 16 % (16-52); METAMYELOCYTES 12 % (0-0); MONOCYTES 20 % (0-8); MYELOCYTES 12 % (0-0); NEUTROPHILS 4 % (35-75); PLATELET ESTIMATE DECREASED (NORMAL)
[2018-04-04 18:21] LABS: ALBUMIN/GLOBULIN RATIO 0.91 (1.00-1.93); ALKALINE PHOSPHATASE 54 U/L (45-117); ALT/SGPT 15 U/L (12-78); ANION GAP 13 MEQ/L (8-16); AST/SGOT 11 U/L (7-37); BILIRUBIN,DIRECT 0.4 MG/DL (0.0-0.2); BILIRUBIN,TOTAL 1.9 MG/DL (0.2-1.0); BLOOD UREA NITROGEN 41 MG/DL (7-18); CALCIUM LEVEL 7.4 MG/DL (8.8-10.2); CARBON DIOXIDE LEVEL 21 MEQ/L (21-32); CHLORIDE LEVEL 96 MEQ/L (98-107); CK-MB VALUE MASS < 1.0 NG/ML (<3.6); CPK CREATINE PHOSPHOKINASE 30 U/L (26-192); CREATININE FOR GFR 1.19 MG/DL (0.55-1.30); GLOMERULAR FILTRATION RATE 48.2 (>45); GLUCOSE, FASTING 283 MG/DL (70-100); MB/CK RELATIVE INDEX 3.33 (< OR =4); MICROCYTOSIS 2+; POLYCHROMASIA 1+; POTASSIUM SERUM 3.6 MEQ/L (3.5-5.1); SODIUM LEVEL 130 MEQ/L (136-145); TOTAL PROTEIN 6.3 GM/DL (6.4-8.2); TROPONIN I < 0.02 NG/ML (< 0.10)
[2018-04-04] MEDS ORDERED: SODIUM CHLORIDE 0.9% INJ 10 ML SYR IV (18:30)
[2018-04-04 18:48] LABS: IMMATURE PLATELET FRACTION % 3.3 % (0.0-9.6)
[2018-04-04] MEDS ORDERED: MAGIC MOUTHWASH SUSPENSION BTL MT (19:45)
[2018-04-04] MEDS: CIPROFLOXACIN 400 MG in APPROPRIATE DILUENT 1 EA IV (19:47)
[2018-04-04 19:56] LABS: AMORPHOUS SEDIMENT LARGE (NEGATIVE); APPEARANCE, URINE CLOUDY (CLEAR); BACTERIA, URINE AUTO NEGATIVE (NEGATIVE); BILIRUBIN, URINE AUTO NEGATIVE (NEGATIVE); BLOOD, URINE BLOOD NEGATIVE (NEGATIVE); COLOR, URINE YELLOW (YELLOW); GLUCOSE, URINE (UA) AUTO 3+ mg/dL (NEGATIVE); KETONE, URINE AUTO TRACE mg/dL (NEGATIVE); LEUKOCYTE ESTERASE, URINE AUTO NEGATIVE (NEGATIVE); MUCUS, URINE SMALL (NEGATIVE); NITRITE, URINE AUTO NEGATIVE (NEGATIVE); PROTEIN, URINE AUTO 1+ mg/dL (NEGATIVE); RBC, URINE AUTO 0 /HPF (0-3); SPECIFIC GRAVITY URINE AUTO 1.016 (1.002-1.035); SQUAMOUS EPITHELIAL CELL UR AU 1 /HPF (0-6); UROBILINOGEN, URINE AUTO 0.2 mg/dL (0.0-2.0); WBC, URINE AUTO 0 /HPF (0-3)
[2018-04-04] MEDS ORDERED: DEXTROSE 50% 50 ML SYRINGE IV (20:30)
[2018-04-04] MEDS ORDERED: GLUCOSE 4 GM CHEW TABLET PO (20:30)
[2018-04-04] MEDS ORDERED: ONDANSETRON 4 MG TAB (S0181) PO (20:30)
[2018-04-04] MEDS ORDERED: PERCOCET 5MG/325MG TAB PO (20:30)
[2018-04-04] MEDS ORDERED: GLUCAGON FOR INJ 1 MG VIAL (J1610) SC (20:30)
[2018-04-04] MEDS: CLINDAMYCIN 600 MG in APPROPRIATE DILUENT 1 EA IV (20:57)
[2018-04-04] MEDS: HumaLOG INSULIN (NovoLOG) PER UNIT SC (21:00)
[2018-04-04 22:08] LABS: BEDSIDE GLUCOSE 307 MG/DL (80-115)
[2018-04-04] MEDS: NS 1,000 ML IV (22:35)
[2018-04-04] MEDS: VANCOMYCIN HCL 1,000 MG, VIAL MATE ADAPTER 1 EACH in D5W 250 ML IV (22:36)
[2018-04-04] MEDS: GABAPENTIN 400 MG CAP PO (22:37)
[2018-04-05] MEDS: CLINDAMYCIN 600 MG in APPROPRIATE DILUENT 1 EA IV (03:04)
[2018-04-05] MEDS: VANCOMYCIN HCL 750 MG, VIAL MATE ADAPTER 1 EACH in D5W 250 ML IV ×2 (05:57→18:23)
[2018-04-05] MEDS: LEVOTHYROXINE 137MCG TABLET (0.137MG) PO (05:57)
[2018-04-05 05:58] LABS: HEMATOCRIT 20.8 % (36.0-47.0); HEMOGLOBIN 7.2 g/dl (12.0-15.5); MEAN CORPUSCULAR HEMOGLOBIN 27.3 pg (27.0-33.0); MEAN CORPUSCULAR HGB CONC 34.6 g/dl (32.0-36.5); MEAN CORPUSCULAR VOLUME 78.8 fl (80.0-96.0); RED BLOOD COUNT 2.64 10^6/uL (4.00-5.40); RED CELL DISTRIBUTION WIDTH 14.1 % (11.5-14.5)
[2018-04-05 05:59] LABS: WHITE BLOOD COUNT 1.4 10^3/uL (4.0-10.0)
[2018-04-05 06:00] LABS: ADD MANUAL DIFFER YES; DIFF SLIDE NUMBER 97; PLATELET COUNT, AUTOMATED 83 10^3/uL (150-450); POS COUNT POS FLAG; POSITIVE DIFF POS FLAG; POSITIVE MORPH POS FLAG
[2018-04-05 06:25] LABS: ALBUMIN 2.4 GM/DL (3.2-5.2); ALBUMIN/GLOBULIN RATIO 0.63 (1.00-1.93); ALKALINE PHOSPHATASE 49 U/L (45-117); ALT/SGPT 14 U/L (12-78); ANION GAP 12 MEQ/L (8-16); AST/SGOT 13 U/L (7-37); BILIRUBIN,TOTAL 1.3 MG/DL (0.2-1.0); BLOOD UREA NITROGEN 48 MG/DL (7-18); CALCIUM LEVEL 7.6 MG/DL (8.8-10.2); CARBON DIOXIDE LEVEL 22 MEQ/L (21-32); CHLORIDE LEVEL 97 MEQ/L (98-107); CREATININE FOR GFR 1.35 MG/DL (0.55-1.30); FREE T4 1.05 NG/DL (0.76-1.46); GLOMERULAR FILTRATION RATE 41.6 (>45); GLUCOSE, FASTING 215 MG/DL (70-100); MAGNESIUM LEVEL 1.8 MG/DL (1.8-2.4); POTASSIUM SERUM 3.3 MEQ/L (3.5-5.1); SODIUM LEVEL 131 MEQ/L (136-145); TOTAL PROTEIN 6.2 GM/DL (6.4-8.2)
[2018-04-05 06:35] LABS: BANDS 10 % (< 11); EOSINOPHILS 12 % (0-5); LYMPHOCYTES 36 % (16-52); METAMYELOCYTES 8 % (0-0); MONOCYTES 16 % (0-8); MYELOCYTES 3 % (0-0); NEUTROPHILS 15 % (35-75); PLATELET ESTIMATE NORMAL (NORMAL)
[2018-04-05 06:36] LABS: PLATELET CLUMPS SMALL AMT
[2018-04-05 06:37] LABS: ANISOCYTOSIS 1+; MICROCYTOSIS 1+
[2018-04-05 06:39] LABS: TOXIC GRANULATION 1+; TOXIC VACUOLATION 1+
[2018-04-05] MEDS ORDERED: HumaLOG INSULIN (NovoLOG) PER UNIT SC (08:00)
[2018-04-05 09:18] LABS: BEDSIDE GLUCOSE 265 MG/DL (80-115)
[2018-04-05] MEDS: NS 1,000 ML IV (09:45)
[2018-04-05] MEDS: CIPROFLOXACIN 400 MG in APPROPRIATE DILUENT 1 EA IV (09:45)
[2018-04-05] MEDS: LEVEMIR (INSULIN DETEMIR) 1 UNITS/0.01ML SC (09:46)
[2018-04-05] MEDS: HumaLOG INSULIN (NovoLOG) PER UNIT SC ×4 (09:47→20:25)
[2018-04-05] MEDS: ROSUVASTATIN 10 MG TAB (CRESTOR) PO (09:47)
[2018-04-05] MEDS: POTASSIUM CHLORIDE 10 MEQ SR TABLET PO (09:47)
[2018-04-05] MEDS: FERROUS SULFATE 325MG TAB PO (09:48)
[2018-04-05] MEDS: ASPIRIN 81 MG ENTERIC TAB PO (09:48)
[2018-04-05] MEDS: DULoxetine 30 MG CAP (CYMBALTA) PO (09:48)
[2018-04-05] MEDS: GABAPENTIN 400 MG CAP PO ×3 (09:48→21:00)
[2018-04-05] MEDS: CALCIUM/VITAMIN D 500 MG TAB PO (09:48)
[2018-04-05] MEDS: ACETAMINOPHEN TAB 650MG DOSE (2X325MG) PO (09:50)
[2018-04-05 12:34] LABS: BEDSIDE GLUCOSE 351 MG/DL (80-115)
[2018-04-05] MEDS: ONDANSETRON 4MG/2ML VIAL (J2405) IV ×3 (14:05→19:00)
[2018-04-05] MEDS: MEROPENEM INJ 1 GM in APPROPRIATE DILUENT 1 EA IV (14:06)
[2018-04-05] MEDS: FILGRASTIM 480 MCG/0.8 ML SYRINGE (J1442) SC (14:06)
[2018-04-05 17:03] LABS: BEDSIDE GLUCOSE 263 MG/DL (80-115)
[2018-04-05 20:04] LABS: BEDSIDE GLUCOSE 282 MG/DL (80-115)
[2018-04-06] MEDS: NS 1,000 ML IV ×3 (00:45→12:55)
[2018-04-06] MEDS: MEROPENEM INJ 1 GM in APPROPRIATE DILUENT 1 EA IV ×2 (00:45→12:55)
[2018-04-06] MEDS: LEVOTHYROXINE 137MCG TABLET (0.137MG) PO (05:45)
[2018-04-06 05:51] LABS: HEMATOCRIT 23.3 % (36.0-47.0); MEAN CORPUSCULAR HEMOGLOBIN 27.4 pg (27.0-33.0); MEAN CORPUSCULAR HGB CONC 34.3 g/dl (32.0-36.5); MEAN CORPUSCULAR VOLUME 79.8 fl (80.0-96.0); PLATELET COUNT, AUTOMATED 126 10^3/uL (150-450); RED BLOOD COUNT 2.92 10^6/uL (4.00-5.40); RED CELL DISTRIBUTION WIDTH 14.5 % (11.5-14.5); WHITE BLOOD COUNT 9.5 10^3/uL (4.0-10.0)
[2018-04-06 05:52] LABS: ADD MANUAL DIFFER YES; DIFF SLIDE NUMBER 61; POS COUNT POS FLAG; POSITIVE MORPH POS FLAG
[2018-04-06 06:19] LABS: ANION GAP 11 MEQ/L (8-16); AST/SGOT 21 U/L (7-37); BLOOD UREA NITROGEN 50 MG/DL (7-18); CALCIUM LEVEL 8.1 MG/DL (8.8-10.2); CARBON DIOXIDE LEVEL 23 MEQ/L (21-32); CHLORIDE LEVEL 104 MEQ/L (98-107); CREATININE FOR GFR 1.19 MG/DL (0.55-1.30); GLOMERULAR FILTRATION RATE 48.2 (>45); GLUCOSE, FASTING 157 MG/DL (70-100); POTASSIUM SERUM 3.8 MEQ/L (3.5-5.1); SODIUM LEVEL 138 MEQ/L (136-145)
[2018-04-06 06:20] LABS: ALBUMIN 2.4 GM/DL (3.2-5.2); ALBUMIN/GLOBULIN RATIO 0.83 (1.00-1.93); ALKALINE PHOSPHATASE 55 U/L (45-117); ALT/SGPT 19 U/L (12-78); MAGNESIUM LEVEL 1.9 MG/DL (1.8-2.4); TOTAL PROTEIN 5.3 GM/DL (6.4-8.2); VANCOMYCIN LEVEL TROUGH 18.4 UG/ML (10.0-20.0)
[2018-04-06 06:34] LABS: BANDS 2 % (< 11); EOSINOPHILS 1 % (0-5); LYMPHOCYTES 11 % (16-52); METAMYELOCYTES 5 % (0-0); MICROCYTOSIS 1+; MONOCYTES 7 % (0-8); MYELOCYTES 4 % (0-0); NEUTROPHILS 70 % (35-75); PLATELET ESTIMATE DECREASED (NORMAL); TOXIC GRANULATION 2+
[2018-04-06 06:35] LABS: OVALOCYTES 1+
[2018-04-06] MEDS: VANCOMYCIN HCL 750 MG, VIAL MATE ADAPTER 1 EACH in D5W 250 ML IV ×2 (06:38→20:47)
[2018-04-06] MEDS: ONDANSETRON 4MG/2ML VIAL (J2405) IV (07:32)
[2018-04-06 08:15] LABS: ABG BASE EXCESS -3.4 (-2.0-2.0); ABG HCO3 20.4 MEQ/L (22.0-26.0); ABG O2 SATURATION 94.7 % (95.0-99.0); ABG PARTIAL PRESSURE CO2 31.6 mmHg (35.0-45.0); ABG PARTIAL PRESSURE O2 76.6 mmHg (75.0-100.0); ABG STANDARD HCO3 21.5 MEQ/L (22.0-26.0); ABG TOTAL CO2 21.3 MEQ/L (23.0-31.0); ABG pH (ARTERIAL) 7.427 UNITS (7.350-7.450)
[2018-04-06 08:16] LABS: ABG SITE RT RADIAL
[2018-04-06] MEDS: HumaLOG INSULIN (NovoLOG) PER UNIT SC ×4 (10:54→21:00)
[2018-04-06] MEDS: LEVEMIR (INSULIN DETEMIR) 1 UNITS/0.01ML SC (10:55)
[2018-04-06] MEDS: SANTYL OINT 30GM TOP (10:55)
[2018-04-06] MEDS: ROSUVASTATIN 10 MG TAB (CRESTOR) PO (10:56)
[2018-04-06] MEDS: CALCIUM/VITAMIN D 500 MG TAB PO (10:56)
[2018-04-06] MEDS: GABAPENTIN 400 MG CAP PO ×3 (10:56→20:47)
[2018-04-06] MEDS: DULoxetine 30 MG CAP (CYMBALTA) PO (10:56)
[2018-04-06] MEDS: FERROUS SULFATE 325MG TAB PO (10:56)
[2018-04-06] MEDS: ASPIRIN 81 MG ENTERIC TAB PO (10:56)
[2018-04-06 12:25] LABS: BEDSIDE GLUCOSE 262 MG/DL (80-115)
[2018-04-06 12:25] LABS: BEDSIDE GLUCOSE 264 MG/DL (80-115)
[2018-04-06] MEDS: BISACODYL 10 MG SUPP PR (13:59)
[2018-04-06 15:22] LABS: SODIUM,RANDOM URINE 28 MEQ/L
[2018-04-06 16:33] LABS: IMMEDIATE SPIN CROSSMATCH 1 1
[2018-04-06 17:02] LABS: BEDSIDE GLUCOSE 235 MG/DL (80-115)
[2018-04-06] MEDS: ACETAMINOPHEN TAB 650MG DOSE (2X325MG) PO (20:53)
[2018-04-06 21:00] LABS: BEDSIDE GLUCOSE 240 MG/DL (80-115)
[2018-04-07] MEDS: NS 1,000 ML IV ×3 (00:49→14:52)
[2018-04-07] MEDS: MEROPENEM INJ 1 GM in APPROPRIATE DILUENT 1 EA IV (00:49)
[2018-04-07 04:55] LABS: HEMATOCRIT 26.2 % (36.0-47.0); HEMOGLOBIN 8.9 g/dl (12.0-15.5); MEAN CORPUSCULAR HEMOGLOBIN 27.6 pg (27.0-33.0); MEAN CORPUSCULAR VOLUME 81.4 fl (80.0-96.0); PLATELET COUNT, AUTOMATED 158 10^3/uL (150-450); RED BLOOD COUNT 3.22 10^6/uL (4.00-5.40); RED CELL DISTRIBUTION WIDTH 14.8 % (11.5-14.5); WHITE BLOOD COUNT 21.7 10^3/uL (4.0-10.0)
[2018-04-07 05:13] LABS: POS COUNT POS FLAG; POSITIVE DIFF POS FLAG; POSITIVE MORPH POS FLAG
[2018-04-07 05:14] LABS: ADD MANUAL DIFFER YES; DIFF SLIDE NUMBER 30
[2018-04-07 05:24] LABS: ALBUMIN 2.3 GM/DL (3.2-5.2); ALBUMIN/GLOBULIN RATIO 0.92 (1.00-1.93); ALKALINE PHOSPHATASE 68 U/L (45-117); ALT/SGPT 14 U/L (12-78); ANION GAP 8 MEQ/L (8-16); AST/SGOT 30 U/L (7-37); BLOOD UREA NITROGEN 40 MG/DL (7-18); CALCIUM LEVEL 7.7 MG/DL (8.8-10.2); CARBON DIOXIDE LEVEL 25 MEQ/L (21-32); CHLORIDE LEVEL 107 MEQ/L (98-107); CREATININE FOR GFR 1.09 MG/DL (0.55-1.30); GLOMERULAR FILTRATION RATE 53.3 (>45); GLUCOSE, FASTING 177 MG/DL (70-100); POTASSIUM SERUM 3.8 MEQ/L (3.5-5.1); SODIUM LEVEL 140 MEQ/L (136-145); TOTAL PROTEIN 4.8 GM/DL (6.4-8.2)
[2018-04-07 06:03] LABS: ATYPICAL LYMPH 1 % (0-5); BANDS 3 % (< 11); LYMPHOCYTES 13 % (16-52); METAMYELOCYTES 4 % (0-0); MONOCYTES 3 % (0-8); MYELOCYTES 2 % (0-0); NEUTROPHILS 74 % (35-75)
[2018-04-07 06:04] LABS: PLATELET ESTIMATE NORMAL (NORMAL)
[2018-04-07 06:05] LABS: TOXIC GRANULATION 2+
[2018-04-07 06:06] LABS: POIKILOCYTOSIS 1+
[2018-04-07] MEDS: VANCOMYCIN HCL 750 MG, VIAL MATE ADAPTER 1 EACH in D5W 250 ML IV (06:21)
[2018-04-07] MEDS: LEVOTHYROXINE 137MCG TABLET (0.137MG) PO (06:21)
[2018-04-07 08:40] LABS: BEDSIDE GLUCOSE 240 MG/DL (80-115)
[2018-04-07] MEDS: HumaLOG INSULIN (NovoLOG) PER UNIT SC ×4 (09:15→20:52)
[2018-04-07] MEDS: LEVEMIR (INSULIN DETEMIR) 1 UNITS/0.01ML SC ×2 (09:15→12:46)
[2018-04-07] MEDS: DULoxetine 30 MG CAP (CYMBALTA) PO (09:16)
[2018-04-07] MEDS: ROSUVASTATIN 10 MG TAB (CRESTOR) PO (09:16)
[2018-04-07] MEDS: CALCIUM/VITAMIN D 500 MG TAB PO (09:16)
[2018-04-07] MEDS: GABAPENTIN 400 MG CAP PO ×3 (09:16→20:52)
[2018-04-07] MEDS: ASPIRIN 81 MG ENTERIC TAB PO (09:16)
[2018-04-07] MEDS: FERROUS SULFATE 325MG TAB PO (09:16)
[2018-04-07] MEDS: SANTYL OINT 30GM TOP (09:17)
[2018-04-07 12:15] LABS: BEDSIDE GLUCOSE 326 MG/DL (80-115)
[2018-04-07] MEDS: LevoFLOXacin IV 500 MG in APPROPRIATE DILUENT 1 EA IV (12:45)
[2018-04-07] MEDS: VANCOMYCIN ORAL SOL 250MG/5ML ORAL SYRINGE PO ×3 (13:30→23:53)
[2018-04-07 16:33] LABS: BEDSIDE GLUCOSE 320 MG/DL (80-115)
[2018-04-07 20:37] LABS: BEDSIDE GLUCOSE 329 MG/DL (80-115)
[2018-04-08] MEDS: NS 1,000 ML IV ×2 (04:20→15:45)
[2018-04-08 06:23] LABS: HEMATOCRIT 25.9 % (36.0-47.0); MEAN CORPUSCULAR HEMOGLOBIN 28.1 pg (27.0-33.0); MEAN CORPUSCULAR HGB CONC 34.7 g/dl (32.0-36.5); MEAN CORPUSCULAR VOLUME 80.9 fl (80.0-96.0); PLATELET COUNT, AUTOMATED 173 10^3/uL (150-450); RED CELL DISTRIBUTION WIDTH 15.4 % (11.5-14.5)
[2018-04-08 06:27] LABS: ADD MANUAL DIFFER YES; DIFF SLIDE NUMBER 24; POS COUNT POS FLAG; POSITIVE DIFF POS FLAG; POSITIVE MORPH POS FLAG
[2018-04-08] MEDS: VANCOMYCIN ORAL SOL 250MG/5ML ORAL SYRINGE PO ×3 (06:29→17:41)
[2018-04-08] MEDS: LEVOTHYROXINE 137MCG TABLET (0.137MG) PO (06:29)
[2018-04-08 06:49] LABS: ALBUMIN 2.5 GM/DL (3.2-5.2); ALBUMIN/GLOBULIN RATIO 0.81 (1.00-1.93); ALKALINE PHOSPHATASE 84 U/L (45-117); ALT/SGPT 17 U/L (12-78); ANION GAP 6 MEQ/L (8-16); AST/SGOT 25 U/L (7-37); BILIRUBIN,TOTAL 0.7 MG/DL (0.2-1.0); BLOOD UREA NITROGEN 25 MG/DL (7-18); CALCIUM LEVEL 8.5 MG/DL (8.8-10.2); CARBON DIOXIDE LEVEL 27 MEQ/L (21-32); CHLORIDE LEVEL 107 MEQ/L (98-107); CREATININE FOR GFR 0.92 MG/DL (0.55-1.30); GLOMERULAR FILTRATION RATE > 60.0 (>45); GLUCOSE, FASTING 272 MG/DL (70-100); MAGNESIUM LEVEL 1.6 MG/DL (1.8-2.4); POTASSIUM SERUM 3.8 MEQ/L (3.5-5.1); SODIUM LEVEL 140 MEQ/L (136-145); TOTAL PROTEIN 5.6 GM/DL (6.4-8.2)
[2018-04-08 07:36] LABS: ATYPICAL LYMPH 3 % (0-5); BANDS 5 % (< 11); EOSINOPHILS 1 % (0-5); LYMPHOCYTES 23 % (16-52); METAMYELOCYTES 3 % (0-0); MONOCYTES 3 % (0-8); MYELOCYTES 9 % (0-0); NEUTROPHILS 53 % (35-75); TOXIC GRANULATION 2+
[2018-04-08 07:37] LABS: ANISOCYTOSIS 1+; MICROCYTOSIS 1+; PLATELET ESTIMATE NORMAL (NORMAL)
[2018-04-08] MEDS: FERROUS SULFATE 325MG TAB PO (09:21)
[2018-04-08] MEDS: CALCIUM/VITAMIN D 500 MG TAB PO (09:21)
[2018-04-08] MEDS: ROSUVASTATIN 10 MG TAB (CRESTOR) PO (09:21)
[2018-04-08] MEDS: DULoxetine 30 MG CAP (CYMBALTA) PO (09:21)
[2018-04-08] MEDS: GABAPENTIN 400 MG CAP PO ×3 (09:21→20:47)
[2018-04-08] MEDS: ASPIRIN 81 MG ENTERIC TAB PO (09:22)
[2018-04-08] MEDS: LEVEMIR (INSULIN DETEMIR) 1 UNITS/0.01ML SC (09:23)
[2018-04-08] MEDS: SANTYL OINT 30GM TOP (09:23)
[2018-04-08] MEDS: HumaLOG INSULIN (NovoLOG) PER UNIT SC ×4 (09:36→20:46)
[2018-04-08] MEDS: MAG SULF 1GM/100ML (MAG RUN) 1 GM in APPROPRIATE DILUENT 1 EA IV (10:28)
[2018-04-08] MEDS: LevoFLOXacin IV 250 MG in APPROPRIATE DILUENT 1 EA IV (11:27)
[2018-04-08 11:28] LABS: BEDSIDE GLUCOSE 337 MG/DL (80-115)
[2018-04-08 16:50] LABS: BEDSIDE GLUCOSE 309 MG/DL (80-115)
[2018-04-08 20:20] LABS: BEDSIDE GLUCOSE 307 MG/DL (80-115)
[2018-04-09] MEDS: VANCOMYCIN ORAL SOL 250MG/5ML ORAL SYRINGE PO ×5 (00:25→23:49)
[2018-04-09] MEDS: NS 1,000 ML IV ×3 (00:25→20:50)
[2018-04-09 05:26] LABS: HEMATOCRIT 25.7 % (36.0-47.0); HEMOGLOBIN 8.7 g/dl (12.0-15.5); MEAN CORPUSCULAR HEMOGLOBIN 27.7 pg (27.0-33.0); MEAN CORPUSCULAR HGB CONC 33.9 g/dl (32.0-36.5); MEAN CORPUSCULAR VOLUME 81.8 fl (80.0-96.0); PLATELET COUNT, AUTOMATED 159 10^3/uL (150-450); RED BLOOD COUNT 3.14 10^6/uL (4.00-5.40); RED CELL DISTRIBUTION WIDTH 15.3 % (11.5-14.5)
[2018-04-09 05:30] LABS: ADD MANUAL DIFFER YES; DIFF SLIDE NUMBER 18; POS COUNT POS FLAG; POSITIVE MORPH POS FLAG
[2018-04-09] MEDS: LEVOTHYROXINE 137MCG TABLET (0.137MG) PO (05:32)
[2018-04-09 05:53] LABS: ALBUMIN 2.4 GM/DL (3.2-5.2); ALBUMIN/GLOBULIN RATIO 0.77 (1.00-1.93); ALKALINE PHOSPHATASE 76 U/L (45-117); ALT/SGPT 19 U/L (12-78); ANION GAP 8 MEQ/L (8-16); AST/SGOT 23 U/L (7-37); BILIRUBIN,TOTAL 0.6 MG/DL (0.2-1.0); BLOOD UREA NITROGEN 20 MG/DL (7-18); CARBON DIOXIDE LEVEL 27 MEQ/L (21-32); CHLORIDE LEVEL 105 MEQ/L (98-107); CREATININE FOR GFR 0.86 MG/DL (0.55-1.30); GLOMERULAR FILTRATION RATE > 60.0 (>45); GLUCOSE, FASTING 255 MG/DL (70-100); MAGNESIUM LEVEL 1.3 MG/DL (1.8-2.4); POTASSIUM SERUM 3.5 MEQ/L (3.5-5.1); SODIUM LEVEL 140 MEQ/L (136-145); TOTAL PROTEIN 5.5 GM/DL (6.4-8.2)
[2018-04-09 06:23] LABS: ATYPICAL LYMPH 1 % (0-5); BANDS 5 % (< 11); LYMPHOCYTES 23 % (16-52); METAMYELOCYTES 4 % (0-0); MONOCYTES 3 % (0-8); MYELOCYTES 9 % (0-0); NEUTROPHILS 55 % (35-75); PLATELET ESTIMATE NORMAL (NORMAL)
[2018-04-09 06:24] LABS: ANISOCYTOSIS 1+; TOXIC GRANULATION 1+
[2018-04-09] MEDS: MAG SULF 1GM/100ML (MAG RUN) 1 GM in APPROPRIATE DILUENT 1 EA IV ×2 (06:42→20:50)
[2018-04-09] MEDS: HumaLOG INSULIN (NovoLOG) PER UNIT SC ×4 (08:42→20:50)
[2018-04-09] MEDS: ASPIRIN 81 MG ENTERIC TAB PO (08:43)
[2018-04-09] MEDS: FERROUS SULFATE 325MG TAB PO (08:43)
[2018-04-09] MEDS: ROSUVASTATIN 10 MG TAB (CRESTOR) PO (08:43)
[2018-04-09] MEDS: LEVEMIR (INSULIN DETEMIR) 1 UNITS/0.01ML SC (08:43)
[2018-04-09] MEDS: CALCIUM/VITAMIN D 500 MG TAB PO (08:43)
[2018-04-09] MEDS: DULoxetine 30 MG CAP (CYMBALTA) PO (08:43)
[2018-04-09] MEDS: GABAPENTIN 400 MG CAP PO ×3 (08:43→20:51)
[2018-04-09] MEDS: SANTYL OINT 30GM TOP (08:43)
[2018-04-09] MEDS: LevoFLOXacin IV 250 MG in APPROPRIATE DILUENT 1 EA IV (11:42)
[2018-04-09 11:52] LABS: BEDSIDE GLUCOSE 247 MG/DL (80-115)
[2018-04-09] MEDS: ACETAMINOPHEN TAB 650MG DOSE (2X325MG) PO (12:12)
[2018-04-09 15:50] LABS: MAGNESIUM LEVEL 1.4 MG/DL (1.8-2.4)
[2018-04-09 17:10] LABS: BEDSIDE GLUCOSE 256 MG/DL (80-115)
[2018-04-09 20:22] LABS: BEDSIDE GLUCOSE 271 MG/DL (80-115)
[2018-04-10 05:28] LABS: HEMATOCRIT 25.9 % (36.0-47.0); HEMOGLOBIN 8.6 g/dl (12.0-15.5); MEAN CORPUSCULAR HEMOGLOBIN 27.5 pg (27.0-33.0); MEAN CORPUSCULAR HGB CONC 33.2 g/dl (32.0-36.5); MEAN CORPUSCULAR VOLUME 82.7 fl (80.0-96.0); PLATELET COUNT, AUTOMATED 165 10^3/uL (150-450); RED BLOOD COUNT 3.13 10^6/uL (4.00-5.40); WHITE BLOOD COUNT 15.6 10^3/uL (4.0-10.0)
[2018-04-10 05:40] LABS: POS COUNT POS FLAG; POSITIVE MORPH POS FLAG
[2018-04-10 05:41] LABS: ADD MANUAL DIFFER YES; DIFF SLIDE NUMBER 15
[2018-04-10 06:01] LABS: ALBUMIN 2.4 GM/DL (3.2-5.2); ALBUMIN/GLOBULIN RATIO 0.83 (1.00-1.93); ALKALINE PHOSPHATASE 80 U/L (45-117); ALT/SGPT 18 U/L (12-78); ANION GAP 7 MEQ/L (8-16); AST/SGOT 19 U/L (7-37); BILIRUBIN,TOTAL 0.7 MG/DL (0.2-1.0); BLOOD UREA NITROGEN 15 MG/DL (7-18); CALCIUM LEVEL 8.1 MG/DL (8.8-10.2); CARBON DIOXIDE LEVEL 29 MEQ/L (21-32); CHLORIDE LEVEL 105 MEQ/L (98-107); CREATININE FOR GFR 0.82 MG/DL (0.55-1.30); GLOMERULAR FILTRATION RATE > 60.0 (>45); GLUCOSE, FASTING 265 MG/DL (70-100); MAGNESIUM LEVEL 1.5 MG/DL (1.8-2.4); POTASSIUM SERUM 3.5 MEQ/L (3.5-5.1); SODIUM LEVEL 141 MEQ/L (136-145); TOTAL PROTEIN 5.3 GM/DL (6.4-8.2)
[2018-04-10 06:15] LABS: ATYPICAL LYMPH 1 % (0-5); BANDS 5 % (< 11); LYMPHOCYTES 25 % (16-52); METAMYELOCYTES 4 % (0-0); MONOCYTES 5 % (0-8); MYELOCYTES 6 % (0-0); NEUTROPHILS 54 % (35-75)
[2018-04-10 06:16] LABS: PLATELET ESTIMATE NORMAL (NORMAL); TOXIC GRANULATION 1+
[2018-04-10 06:17] LABS: ANISOCYTOSIS 1+
[2018-04-10] MEDS: NS 1,000 ML IV (06:21)
[2018-04-10] MEDS: LEVOTHYROXINE 137MCG TABLET (0.137MG) PO (06:21)
[2018-04-10] MEDS: VANCOMYCIN ORAL SOL 250MG/5ML ORAL SYRINGE PO (06:22)
[2018-04-10] MEDS: HumaLOG INSULIN (NovoLOG) PER UNIT SC ×4 (08:36→21:00)
[2018-04-10] MEDS: LEVEMIR (INSULIN DETEMIR) 1 UNITS/0.01ML SC (08:37)
[2018-04-10] MEDS: ROSUVASTATIN 10 MG TAB (CRESTOR) PO (08:38)
[2018-04-10] MEDS: DOXYCYCLINE HYCLATE 100 MG TAB PO ×2 (08:38→21:38)
[2018-04-10] MEDS: ASPIRIN 81 MG ENTERIC TAB PO (08:38)
[2018-04-10] MEDS: DULoxetine 30 MG CAP (CYMBALTA) PO (08:38)
[2018-04-10] MEDS: GABAPENTIN 400 MG CAP PO ×3 (08:38→21:38)
[2018-04-10] MEDS: FERROUS SULFATE 325MG TAB PO (08:38)
[2018-04-10] MEDS: CALCIUM/VITAMIN D 500 MG TAB PO (08:39)
[2018-04-10] MEDS: MAG SULF 1GM/100ML (MAG RUN) 1 GM in APPROPRIATE DILUENT 1 EA IV (08:39)
[2018-04-10] MEDS: SANTYL OINT 30GM TOP (08:40)
[2018-04-10] MEDS: LevoFLOXacin IV 250 MG in APPROPRIATE DILUENT 1 EA IV (11:26)
[2018-04-10 11:48] LABS: BEDSIDE GLUCOSE 319 MG/DL (80-115)
[2018-04-10 16:51] LABS: BEDSIDE GLUCOSE 314 MG/DL (80-115)
[2018-04-10 21:02] LABS: BEDSIDE GLUCOSE 336 MG/DL (80-115)
[2018-04-11] MEDS: LEVOTHYROXINE 137MCG TABLET (0.137MG) PO (05:46)
[2018-04-11] MEDS: LevoFLOXacin 500 MG TABLET PO (05:46)
[2018-04-11] MEDS: SODIUM CHLORIDE 0.9% INJ 10 ML SYR IV ×2 (06:22→09:00)
[2018-04-11 09:20] LABS: HEMATOCRIT 26.8 % (36.0-47.0); HEMOGLOBIN 8.9 g/dl (12.0-15.5); MEAN CORPUSCULAR HEMOGLOBIN 27.9 pg (27.0-33.0); MEAN CORPUSCULAR HGB CONC 33.2 g/dl (32.0-36.5); PLATELET COUNT, AUTOMATED 180 10^3/uL (150-450); RED BLOOD COUNT 3.19 10^6/uL (4.00-5.40); WHITE BLOOD COUNT 17.3 10^3/uL (4.0-10.0)
[2018-04-11 09:27] LABS: C REACTIVE PROTEIN QUANTITATIV 0.73 MG/DL (0.00-0.30)
[2018-04-11 09:27] LABS: BEDSIDE GLUCOSE 261 MG/DL (80-115)
[2018-04-11] MEDS: SANTYL OINT 30GM TOP (09:27)
[2018-04-11] MEDS: LEVEMIR (INSULIN DETEMIR) 1 UNITS/0.01ML SC (09:27)
[2018-04-11] MEDS: HumaLOG INSULIN (NovoLOG) PER UNIT SC ×5 (09:28→20:58)
[2018-04-11] MEDS: FERROUS SULFATE 325MG TAB PO (09:29)
[2018-04-11] MEDS: DULoxetine 30 MG CAP (CYMBALTA) PO (09:29)
[2018-04-11] MEDS: CALCIUM/VITAMIN D 500 MG TAB PO (09:29)
[2018-04-11] MEDS: ROSUVASTATIN 10 MG TAB (CRESTOR) PO (09:29)
[2018-04-11] MEDS: ASPIRIN 81 MG ENTERIC TAB PO (09:29)
[2018-04-11] MEDS: DOXYCYCLINE HYCLATE 100 MG TAB PO ×2 (09:29→20:58)
[2018-04-11] MEDS: MAGNESIUM OXIDE 400 MG TAB (MAG-OX) PO ×2 (09:30→20:59)
[2018-04-11] MEDS: GABAPENTIN 400 MG CAP PO ×3 (09:30→20:59)
[2018-04-11 09:32] LABS: ALBUMIN 2.5 GM/DL (3.2-5.2); ALBUMIN/GLOBULIN RATIO 0.78 (1.00-1.93); ALKALINE PHOSPHATASE 71 U/L (45-117); ALT/SGPT 19 U/L (12-78); ANION GAP 6 MEQ/L (8-16); AST/SGOT 15 U/L (7-37); BILIRUBIN,TOTAL 0.9 MG/DL (0.2-1.0); BLOOD UREA NITROGEN 15 MG/DL (7-18); CALCIUM LEVEL 8.5 MG/DL (8.8-10.2); CARBON DIOXIDE LEVEL 29 MEQ/L (21-32); CHLORIDE LEVEL 104 MEQ/L (98-107); CREATININE FOR GFR 0.86 MG/DL (0.55-1.30); GLOMERULAR FILTRATION RATE > 60.0 (>45); GLUCOSE, FASTING 267 MG/DL (70-100); MAGNESIUM LEVEL 1.4 MG/DL (1.8-2.4); POTASSIUM SERUM 4.1 MEQ/L (3.5-5.1); SODIUM LEVEL 139 MEQ/L (136-145); TOTAL PROTEIN 5.7 GM/DL (6.4-8.2)
[2018-04-11 10:53] LABS: POS COUNT POS FLAG; POSITIVE MORPH POS FLAG
[2018-04-11 10:54] LABS: ADD MANUAL DIFFER YES; DIFF SLIDE NUMBER 7
[2018-04-11 11:08] LABS: BANDS 14 % (< 11); EOSINOPHILS 1 % (0-5); LYMPHOCYTES 14 % (16-52); METAMYELOCYTES 4 % (0-0); MONOCYTES 10 % (0-8); MYELOCYTES 8 % (0-0); NEUTROPHILS 49 % (35-75); PLATELET ESTIMATE NORMAL (NORMAL)
[2018-04-11 12:50] LABS: BEDSIDE GLUCOSE 302 MG/DL (80-115)
[2018-04-11 17:28] LABS: BEDSIDE GLUCOSE 266 MG/DL (80-115)
[2018-04-11 19:53] LABS: BEDSIDE GLUCOSE 287 MG/DL (80-115)
[2018-04-11] MEDS: VANCOMYCIN ORAL SOL 250MG/5ML ORAL SYRINGE PO ×2 (20:06→23:50)
[2018-04-11] MEDS: ACETAMINOPHEN TAB 650MG DOSE (2X325MG) PO (20:59)
[2018-04-12] MEDS: VANCOMYCIN ORAL SOL 250MG/5ML ORAL SYRINGE PO ×3 (05:40→17:26)
[2018-04-12] MEDS: LEVOTHYROXINE 137MCG TABLET (0.137MG) PO (05:40)
[2018-04-12] MEDS: LevoFLOXacin 500 MG TABLET PO (05:40)
[2018-04-12 06:00] LABS: HEMATOCRIT 27.5 % (36.0-47.0); MEAN CORPUSCULAR HEMOGLOBIN 27.5 pg (27.0-33.0); MEAN CORPUSCULAR HGB CONC 32.7 g/dl (32.0-36.5); MEAN CORPUSCULAR VOLUME 84.1 fl (80.0-96.0); PLATELET COUNT, AUTOMATED 175 10^3/uL (150-450); RED BLOOD COUNT 3.27 10^6/uL (4.00-5.40); RED CELL DISTRIBUTION WIDTH 14.9 % (11.5-14.5); WHITE BLOOD COUNT 15.6 10^3/uL (4.0-10.0)
[2018-04-12 06:25] LABS: ANION GAP 8 MEQ/L (8-16); BLOOD UREA NITROGEN 19 MG/DL (7-18); C REACTIVE PROTEIN QUANTITATIV 0.48 MG/DL (0.00-0.30); CALCIUM LEVEL 8.5 MG/DL (8.8-10.2); CARBON DIOXIDE LEVEL 28 MEQ/L (21-32); CHLORIDE LEVEL 103 MEQ/L (98-107); CREATININE FOR GFR 0.93 MG/DL (0.55-1.30); GLOMERULAR FILTRATION RATE > 60.0 (>45); GLUCOSE, FASTING 269 MG/DL (70-100); MAGNESIUM LEVEL 1.2 MG/DL (1.8-2.4); POTASSIUM SERUM 3.9 MEQ/L (3.5-5.1); SODIUM LEVEL 139 MEQ/L (136-145)
[2018-04-12] MEDS: HumaLOG INSULIN (NovoLOG) PER UNIT SC ×4 (08:02→21:07)
[2018-04-12] MEDS: LEVEMIR (INSULIN DETEMIR) 1 UNITS/0.01ML SC (08:03)
[2018-04-12] MEDS: DOXYCYCLINE HYCLATE 100 MG TAB PO ×2 (08:04→21:08)
[2018-04-12] MEDS: MAG SULF 1GM/100ML (MAG RUN) 1 GM in APPROPRIATE DILUENT 1 EA IV ×3 (08:04→10:06)
[2018-04-12] MEDS: ROSUVASTATIN 10 MG TAB (CRESTOR) PO (08:04)
[2018-04-12] MEDS: GABAPENTIN 400 MG CAP PO ×3 (08:05→21:07)
[2018-04-12] MEDS: MAGNESIUM OXIDE 400 MG TAB (MAG-OX) PO ×2 (08:05→21:08)
[2018-04-12] MEDS: ASPIRIN 81 MG ENTERIC TAB PO (08:05)
[2018-04-12] MEDS: DULoxetine 30 MG CAP (CYMBALTA) PO (08:05)
[2018-04-12] MEDS: FERROUS SULFATE 325MG TAB PO (08:05)
[2018-04-12] MEDS: CALCIUM/VITAMIN D 500 MG TAB PO (08:05)
[2018-04-12] MEDS: SODIUM CHLORIDE 0.9% INJ 10 ML SYR IV (08:06)
[2018-04-12] MEDS: SANTYL OINT 30GM TOP (08:07)
[2018-04-12 11:45] LABS: BEDSIDE GLUCOSE 318 MG/DL (80-115)
[2018-04-12 16:58] LABS: BEDSIDE GLUCOSE 358 MG/DL (80-115)
[2018-04-12] MEDS: ACETAMINOPHEN TAB 650MG DOSE (2X325MG) PO (17:25)
[2018-04-12 20:12] LABS: BEDSIDE GLUCOSE 409 MG/DL (80-115)
[2018-04-12] MEDS: LACTOBACILLUS ACIDOPHILUS CAP (BACID) PO (20:16)
[2018-04-13] MEDS: ACETAMINOPHEN TAB 650MG DOSE (2X325MG) PO (00:29)
[2018-04-13] MEDS: VANCOMYCIN ORAL SOL 250MG/5ML ORAL SYRINGE PO ×2 (00:29→05:50)
[2018-04-13] MEDS: LevoFLOXacin 500 MG TABLET PO (05:50)
[2018-04-13] MEDS: LEVOTHYROXINE 137MCG TABLET (0.137MG) PO (05:50)
[2018-04-13 05:55] LABS: HEMATOCRIT 26.5 % (36.0-47.0); HEMOGLOBIN 8.8 g/dl (12.0-15.5); MEAN CORPUSCULAR HEMOGLOBIN 27.8 pg (27.0-33.0); MEAN CORPUSCULAR HGB CONC 33.2 g/dl (32.0-36.5); MEAN CORPUSCULAR VOLUME 83.9 fl (80.0-96.0); PLATELET COUNT, AUTOMATED 192 10^3/uL (150-450); RED BLOOD COUNT 3.16 10^6/uL (4.00-5.40); RED CELL DISTRIBUTION WIDTH 15.2 % (11.5-14.5); WHITE BLOOD COUNT 13.8 10^3/uL (4.0-10.0)
[2018-04-13 06:21] LABS: ANION GAP 7 MEQ/L (8-16); BLOOD UREA NITROGEN 20 MG/DL (7-18); C REACTIVE PROTEIN QUANTITATIV 0.42 MG/DL (0.00-0.30); CALCIUM LEVEL 8.5 MG/DL (8.8-10.2); CARBON DIOXIDE LEVEL 29 MEQ/L (21-32); CHLORIDE LEVEL 102 MEQ/L (98-107); CREATININE FOR GFR 0.99 MG/DL (0.55-1.30); GLOMERULAR FILTRATION RATE 59.6 (>45); GLUCOSE, FASTING 334 MG/DL (70-100); MAGNESIUM LEVEL 1.6 MG/DL (1.8-2.4); SODIUM LEVEL 138 MEQ/L (136-145)
[2018-04-13] MEDS: LACTOBACILLUS ACIDOPHILUS CAP (BACID) PO (07:23)
[2018-04-13] MEDS: HumaLOG INSULIN (NovoLOG) PER UNIT SC (07:24)
[2018-04-13] MEDS: SODIUM CHLORIDE 0.9% INJ 10 ML SYR IV (09:06)
[2018-04-13] MEDS: LEVEMIR (INSULIN DETEMIR) 1 UNITS/0.01ML SC (09:07)
[2018-04-13] MEDS: SANTYL OINT 30GM TOP (09:07)
[2018-04-13] MEDS: ROSUVASTATIN 10 MG TAB (CRESTOR) PO (09:08)
[2018-04-13] MEDS: FERROUS SULFATE 325MG TAB PO (09:08)
[2018-04-13] MEDS: GABAPENTIN 400 MG CAP PO (09:08)
[2018-04-13] MEDS: MAGNESIUM OXIDE 400 MG TAB (MAG-OX) PO (09:09)
[2018-04-13] MEDS: CALCIUM/VITAMIN D 500 MG TAB PO (09:09)
[2018-04-13] MEDS: DULoxetine 30 MG CAP (CYMBALTA) PO (09:09)
[2018-04-13] MEDS: DOXYCYCLINE HYCLATE 100 MG TAB PO (09:09)
[2018-04-13] MEDS: ASPIRIN 81 MG ENTERIC TAB PO (09:09)
[2018-04-13] MEDS: FLUBLOK(EGG FREE)(QUAD)INFLUENZA VACC 0.5ML SYRINGE (90682)18YRS&OLDER IM (10:38)
== END 2018-04-13 11:08 | disposition home health service (06) | DRG 371 ==
LOC: M ED 16:28 → M ED INP 20:18 → M PCU 21:42
PROVIDERS: Hospitalist
PROC: 0HD5XZZ Extraction of Chest Skin, External Approach (ICD-10-PCS; principal; 2018-04-06)
PROC: 30233N1 Transfusion of Nonautologous Red Blood Cells into Peripheral Vein, Percutaneous Approach (ICD-10-PCS; 2018-04-06)
DX: A04.72 Enterocolitis due to Clostridium difficile, not specified as recurrent (principal); D61.810 Antineoplastic chemotherapy induced pancytopenia; N17.9 Acute kidney failure, unspecified; T81.41XA Infection following a procedure, superficial incisional surgical site, initial encounter; E87.1 Hypo-osmolality and hyponatremia; D70.9 Neutropenia, unspecified; J45.909 Unspecified asthma, uncomplicated; E11.9 Type 2 diabetes mellitus without complications; I10 Essential (primary) hypertension; E03.9 Hypothyroidism, unspecified; K12.1 Other forms of stomatitis; C50.912 Malignant neoplasm of unspecified site of left female breast; Z90.13 Acquired absence of bilateral breasts and nipples; Z88.0 Allergy status to penicillin; Z79.899 Other long term (current) drug therapy; Z79.4 Long term (current) use of insulin; Z79.82 Long term (current) use of aspirin; T81.89XA Other complications of procedures, not elsewhere classified, initial encounter; Y83.8 Other surgical procedures as the cause of abnormal reaction of the patient, or of later complication, without mention of misadventure at the time of the procedure; B96.5 Pseudomonas (aeruginosa) (mallei) (pseudomallei) as the cause of diseases classified elsewhere; B95.62 Methicillin resistant Staphylococcus aureus infection as the cause of diseases classified elsewhere; E83.42 Hypomagnesemia

== ENCOUNTER 2018-05-23 07:02 | Emergency (ER) | payer MEDICARE, MEDICAID ==
[~2018-05-23] VITALS: Ht 162.6 cm; Wt 81.8 kg
[~2018-05-23 07:02] MED LIST changes: +ASPI81TAEC PO; +BACITAB PO; +DOXY100T PO; -DRIS50002 PO; +DRIS50003 PO; +DULO1CAP2 PO; -GABA-282 PO; +GABA-843 PO; +GABA800T4 PO; +GLUC1INJ21 SC; +GLUC1KIT IM; -GLUC1VL SC; +HUMA100I3 SC; -LEVA1TAB PO; +LEVA1TAB2 PO; +LEVA250T13 PO; +MAG400TA PO; +MAGICMW MT; +MELO15TA28 PO; +ONDA8TAB7 PO; +OSEL75CA PO; -PANT40TA2 PO; +PANT40TA3 PO; +PROC10TA4 PO; +SYNT137T7 PO; +VANC1CAP6 PO; -VITA1CAP40; +VITA50005
--- NOTE | 2018-05-23 09:01 | REP ---
RIGHT HUMERUS, TWO VIEWS: There is no evidence of an acute fracture, dislocation or intrinsic bone disease. IMPRESSION: No fracture or dislocation. Electronically Signed by Mayco Rodriguez MD 05/23/2018 03:00 P
--- NOTE | 2018-05-23 09:01 | REP ---
RIGHT ANKLE: Four views right ankle performed. There is no acute fracture or dislocation. Ankle mortise is anatomic. There are mild vascular calcifications in the soft tissues. There is tiny posterior calcaneal spur and a large inferior calcaneal spur. IMPRESSION: No acute fracture or dislocation. Electronically Signed by Mayco Rodriguez MD 05/23/2018 03:07 P
--- NOTE | 2018-05-23 09:02 | REP ---
RIGHT FOREARM, TWO VIEWS: There is no evidence of an acute fracture, dislocation or intrinsic bone disease. IMPRESSION: No fracture or dislocation. Electronically Signed by Mayco Rodriguez MD 05/23/2018 03:08 P
[2018-05-23] MEDS ORDERED: ACETAMINOPHEN 325 MG TAB PO ONE (09:45)
[2018-05-23 10:02] VITALS: BP 153/72
== END 2018-05-23 10:42 | disposition home or self-care (01) ==
LOC: M ED 07:02
DX: S93.401A Sprain of unspecified ligament of right ankle, initial encounter (principal); S43.401A Unspecified sprain of right shoulder joint, initial encounter; W19.XXXA Unspecified fall, initial encounter; Y92.099 Unspecified place in other non-institutional residence as the place of occurrence of the external cause; Y93.9 Activity, unspecified; Y99.9 Unspecified external cause status; Z87.891 Personal history of nicotine dependence; G43.909 Migraine, unspecified, not intractable, without status migrainosus; E11.40 Type 2 diabetes mellitus with diabetic neuropathy, unspecified; E78.00 Pure hypercholesterolemia, unspecified; I10 Essential (primary) hypertension; J45.909 Unspecified asthma, uncomplicated; Z87.01 Personal history of pneumonia (recurrent); K21.9 Gastro-esophageal reflux disease without esophagitis; K57.30 Diverticulosis of large intestine without perforation or abscess without bleeding; K58.9 Irritable bowel syndrome, unspecified; N17.9 Acute kidney failure, unspecified; Z87.440 Personal history of urinary (tract) infections; Z85.3 Personal history of malignant neoplasm of breast; E05.00 Thyrotoxicosis with diffuse goiter without thyrotoxic crisis or storm; E03.9 Hypothyroidism, unspecified; M54.9 Dorsalgia, unspecified; M81.0 Age-related osteoporosis without current pathological fracture; D70.9 Neutropenia, unspecified; F41.9 Anxiety disorder, unspecified; F32.9 Major depressive disorder, single episode, unspecified; Z86.14 Personal history of Methicillin resistant Staphylococcus aureus infection; Z79.82 Long term (current) use of aspirin; Z79.4 Long term (current) use of insulin; Z79.899 Other long term (current) drug therapy; Z88.0 Allergy status to penicillin

== ENCOUNTER → 2018-06-07 | Outpatient (REF) | payer MEDICARE, MEDICAID ==
[~2018-06-07] MED LIST changes: +GABA800T PO; -GABA800T4 PO
[2018-06-07 17:06] LABS: BASO % 0.7 % (0.0-1.0); EOS # 0.2 10^3/uL (0.0-0.50); EOS % 3.3 % (0.0-3.0); HEMATOCRIT 33.2 % (36.0-47.0); HEMOGLOBIN 10.7 g/dl (12.0-15.5); LYMPH # 1.4 10^3/uL (1.5-4.5); LYMPH % 24.5 % (24.0-44.0); MEAN CORPUSCULAR HEMOGLOBIN 28.2 pg (27.0-33.0); MEAN CORPUSCULAR HGB CONC 32.2 g/dl (32.0-36.5); MEAN CORPUSCULAR VOLUME 87.4 fl (80.0-96.0); MONO # 0.4 10^3/uL (0.0-0.8); MONO % 7.5 % (0.0-5.0); NEUTROPHILS # 3.7 10^3/uL (1.8-7.7); NEUTROPHILS % 63.5 % (36.0-66.0); PLATELET COUNT, AUTOMATED 189 10^3/uL (150-450); WHITE BLOOD COUNT 5.8 10^3/uL (4.0-10.0)
[2018-06-07 17:11] LABS: ALBUMIN 3.7 GM/DL (3.2-5.2); BILIRUBIN,TOTAL 0.9 MG/DL (0.2-1.0); CREATININE FOR GFR 1.02 MG/DL (0.55-1.30); GLOMERULAR FILTRATION RATE 57.4 (>45); POTASSIUM SERUM 4.5 MEQ/L (3.5-5.1); TOTAL PROTEIN 7.4 GM/DL (6.4-8.2)
[2018-06-07 17:21] LABS: HEMOGLOBIN A1c 9.2 %
== END ==
LOC: M LAB REF 16:36
PROVIDERS: ATTEND Nurse Practitioner Family
DX: R32 Unspecified urinary incontinence (principal); D64.9 Anemia, unspecified; E11.9 Type 2 diabetes mellitus without complications

== ENCOUNTER → 2018-08-21 | Outpatient (CLI) | payer MEDICARE, MEDICAID ==
[~2018-08-21] MED LIST changes: -GABA800T PO; +GABA800T4 PO; +HYDR-3713 PO
[2018-08-21 12:00] LABS: HEMATOCRIT 32.1 % (36.0-47.0); HEMOGLOBIN 10.2 g/dl (12.0-15.5); MEAN CORPUSCULAR HEMOGLOBIN 26.4 pg (27.0-33.0); MEAN CORPUSCULAR HGB CONC 31.8 g/dl (32.0-36.5); MEAN CORPUSCULAR VOLUME 83.2 fl (80.0-96.0); PLATELET COUNT, AUTOMATED 269 10^3/uL (150-450); RED BLOOD COUNT 3.86 10^6/uL (4.00-5.40); WHITE BLOOD COUNT 8.4 10^3/uL (4.0-10.0)
[2018-08-21 12:40] LABS: CREATININE FOR GFR 1.07 MG/DL (0.55-1.30); GLOMERULAR FILTRATION RATE 54.3 (>45); POTASSIUM SERUM 4.9 MEQ/L (3.5-5.1)
== END ==
LOC: M LAB 11:26
PROVIDERS: ATTEND Podiatrist Foot & Ankle Surgery
DX: L03.031 Cellulitis of right toe (principal)

== ENCOUNTER 2018-08-23 10:45 | Day surgery (SDC) | payer MEDICARE, MEDICAID ==
[~2018-08-23] VITALS: Ht 162.6 cm; Wt 86.4 kg
[~2018-08-23 10:45] MED LIST changes: +BUPIVACAINE HCL 0.5% 10 ML VIAL As Ordered ONE; -HYDR-3713 PO; +LIDOCAINE 1% MDV 20ML VIAL As Ordered ONE
[2018-08-23] MEDS ORDERED: CLINDAMYCIN 600 MG/50 ML PREMIX BAG As Ordered ONE (11:48)
[2018-08-23] MEDS ORDERED: CLINDAMYCIN 600 MG in APPROPRIATE DILUENT 1 EA IV ONE (12:00)
[2018-08-23] MEDS ORDERED: LR 1,000 ML IV ONE (13:00)
[2018-08-23] MEDS ORDERED: LIDOCAINE 2% INJ 100 MG/5 ML SDV (FOR ANES.) As Ordered ONE (13:17)
[2018-08-23] MEDS ORDERED: PROPOFOL 200 MG/20 ML VIAL As Ordered ONE (13:17)
[2018-08-23] MEDS ORDERED: fentaNYL 100 MCG/2 ML INJECTION (J3010) As Ordered ONE (13:17)
[2018-08-23] MEDS ORDERED: dexameTHASONE 4 MG/ML 1ML VIAL (J1100) As Ordered ONE (13:17)
[2018-08-23] MEDS ORDERED: ONDANSETRON 4MG/2ML VIAL (J2405) As Ordered ONE (13:17)
[2018-08-23] MEDS ORDERED: MIDAZOLAM INJ 2 MG/2 ML VIAL (J2250) As Ordered ONE (13:18)
[2018-08-23] MEDS ORDERED: KETOROLAC 60 MG/2 ML VIAL (J1885) As Ordered ONE (15:17)
[2018-08-23] MEDS ORDERED: HYDR-3713 PO (15:25)
[2018-08-23 16:10] VITALS: BP 149/65
--- NOTE | 2018-08-23 16:24 | RO ---
DATE OF PROCEDURE: 08/23/2018 PREOPERATIVE DIAGNOSIS: Right 3rd toe infection and osteomyelitis. PREOPERATIVE DIAGNOSIS: Right 3rd toe infection and osteomyelitis. PROCEDURE: Right 3rd toe amputation. SURGEON: Dr. Daniel Jimenez DPMaeve DRIVE IN TELLER: None. ANESTHESIA: Monitored anesthesia care. PREOPERATIVE INJECTION: 10 mL of a 1 to 1 mixture of 1% lidocaine plain and 1/2% Marcaine plain. ESTIMATED BLOOD LOSS: Minimal. MATERIALS: 3-0 Nylon. INJECTABLES: None. SPECIMENS: Right 3rd toe. Carol Ann Grier is a 68-year-old female who is in [facility] with necrotic right 3rd toe. She sustained an injury and developed an injection which has been being treated without resolution over the last month. When last seen in the office the toe had progressive necrotic changes and persisting infection. Decision was made to bring her to the operating room for toe amputation. The patient signed consent. Consent was reviewed. All questions were questions were answered. PROCEDURE: Patient was brought to the operating room and placed on the operating room table, supine position. Monitored anesthesia care was administered by the anesthesia team. Preoperative injection of 10 mL of a 1 to 1 mixture of 1% Lidocaine plain, 1/2% Marcaine plain were injected over the right foot. The right foot was prepped and draped in a normal sterile fashion. Patient received clindamycin preoperatively. A tourniquet was applied to the right ankle and inflated to 250 mm of Mercury. An elliptical incision was drawn surrounding the great 3rd toe and carried through with a #15 blade full thickness. The toe was disarticulated at the metatarsal phalangeal joint and sent for pathology. The toe was noted to be excessively necrotic at the distal portion with penetration down to the bone. The metatarsal head was inspected and appeared free of infection. The extensor and flexor tendons were transected and necrotic tissue was debrided. Following this the site was irrigated with normal saline and the incision was repaired with 3-0 Nylon. Sterile dressings were applied. Tourniquet was deflated. The patient was brought to postanesthesia care unit with vital signs stable and neurovascular status intact. She will be weightbearing as tolerated. She will followup in the office in 2 days.
== END 2018-08-23 16:31 | disposition home or self-care (01) ==
LOC: M SDC 10:45
PROVIDERS: ATTEND Podiatrist Foot & Ankle Surgery
DX: M20.41 Other hammer toe(s) (acquired), right foot (principal); M86.671 Other chronic osteomyelitis, right ankle and foot; E11.40 Type 2 diabetes mellitus with diabetic neuropathy, unspecified; I25.10 Atherosclerotic heart disease of native coronary artery without angina pectoris; I10 Essential (primary) hypertension; E78.5 Hyperlipidemia, unspecified; E03.9 Hypothyroidism, unspecified; Z79.4 Long term (current) use of insulin; Z79.51 Long term (current) use of inhaled steroids; Z79.899 Other long term (current) drug therapy; Z87.891 Personal history of nicotine dependence; Z85.3 Personal history of malignant neoplasm of breast; Z92.21 Personal history of antineoplastic chemotherapy; Z88.0 Allergy status to penicillin; Z79.82 Long term (current) use of aspirin
CPT/HCPCS: 28820; 88305; 88311; J1100; J1885; J2250; J2405; J3010

== ENCOUNTER → 2018-08-31 | Outpatient (REF) | payer MEDICARE, MEDICAID ==
[~2018-08-31] MED LIST changes: -BUPIVACAINE HCL 0.5% 10 ML VIAL As Ordered ONE; +COMMENT; +HYDR-3713 PO; -LIDOCAINE 1% MDV 20ML VIAL As Ordered ONE; +LINE60TAB PO; +MUPI2OI TOP
== END ==
LOC: M LAB REF 16:43
PROVIDERS: ATTEND Podiatrist Foot & Ankle Surgery
DX: L03.031 Cellulitis of right toe (principal)

== ENCOUNTER 2018-09-07 14:11 | Inpatient (IN) | payer MEDICARE, MEDICAID ==
[~2018-09-07] VITALS: Ht 162.6 cm; Wt 88.7 kg
[~2018-09-07 14:11] MED LIST changes: -/ADVA50050; -/MOXI40TA; +ADVA1AER2; -ASPI1TAB PO; +ASPI81TA26 PO; +AVEL1TAB2; -COMMENT; -LINE60TAB PO; -MUPI2OI TOP
[2018-09-07] MEDS ORDERED: VANCOMYCIN HCL 1,000 MG, VIAL MATE ADAPTER 1 EACH in D5W 250 ML IV ONE (14:45)
[2018-09-07 15:16] LABS: BASO # 0.1 10^3/uL (0.0-0.2); BASO % 0.7 % (0.0-1.0); EOS # 0.2 10^3/uL (0.0-0.50); EOS % 1.7 % (0.0-3.0); HEMATOCRIT 31.3 % (36.0-47.0); HEMOGLOBIN 10.2 g/dl (12.0-15.5); LYMPH # 1.7 10^3/uL (1.5-4.5); LYMPH % 15.3 % (24.0-44.0); MEAN CORPUSCULAR HEMOGLOBIN 26.6 pg (27.0-33.0); MEAN CORPUSCULAR HGB CONC 32.6 g/dl (32.0-36.5); MEAN CORPUSCULAR VOLUME 81.5 fl (80.0-96.0); MONO # 0.7 10^3/uL (0.0-0.8); MONO % 6.7 % (0.0-5.0); NEUTROPHILS # 8.2 10^3/uL (1.8-7.7); NEUTROPHILS % 74.2 % (36.0-66.0); PLATELET COUNT, AUTOMATED 275 10^3/uL (150-450); RED BLOOD COUNT 3.84 10^6/uL (4.00-5.40); WHITE BLOOD COUNT 11.1 10^3/uL (4.0-10.0)
[2018-09-07 15:45] LABS: ALBUMIN 3.6 GM/DL (3.2-5.2); C REACTIVE PROTEIN QUANTITATIV 1.08 MG/DL (0.00-0.30); CALCIUM LEVEL 9.7 MG/DL (8.8-10.2); CREATININE FOR GFR 1.18 MG/DL (0.55-1.30); GLOMERULAR FILTRATION RATE 48.5 (>45)
[2018-09-07 15:50] LABS: ERYTHROCYTE SEDIMENTATION RATE > 140 mm/hr (0-30)
[2018-09-07] MEDS ORDERED: CHLO25TA PO (16:15)
[2018-09-07] MEDS ORDERED: MELO15TA28 PO (16:15)
[2018-09-07] MEDS ORDERED: LISI-538 PO (16:15)
[2018-09-07] MEDS ORDERED: LINE1TAB PO (16:15)
[2018-09-07] MEDS ORDERED: COMMENT (16:18)
[2018-09-07] MEDS ORDERED: MUPI2OI TOP (16:21)
--- NOTE | 2018-09-07 17:18 | REP ---
Right foot series: Four views. History: Infection. Comparison right foot radiographs are from May 17, 2017. Findings: The right third toe has been amputated at the MTP joint level in the interval since the May 17, 2017 prior study. There is extensive vascular calcification in the forefoot soft tissues. No acute bony destructive lesion is seen. There is soft tissue swelling adjacent to the amputation site. Plantar calcaneal and Achilles calcaneal spurring is noted. There is soft tissue swelling and irregularity involving the great toe along the medial aspect of the IP joint. Impression: Soft-tissue swelling at the forefoot and IP joint of the great toe. Status post 3rd toe amputation. Vascular calcification. Heel spurs. No acute bony destructive lesion. Electronically Signed by Darryn Gonzalez MD 09/08/2018 01:55 P
[2018-09-07] MEDS ORDERED: MEROPENEM INJ 1 GM in APPROPRIATE DILUENT 1 EA IV ONE (18:45)
[2018-09-07] MEDS ORDERED: GLUCOSE 4 GM CHEW TABLET PO PRN (18:45)
[2018-09-07] MEDS ORDERED: DEXTROSE 50% 50 ML SYRINGE IV PRN (18:45)
[2018-09-07] MEDS ORDERED: GLUCAGON FOR INJ 1 MG VIAL (J1610) SC PRN (18:45)
[2018-09-07] MEDS ORDERED: ACETAMINOPHEN TAB 650MG DOSE (2X325MG) PO PRN (18:45)
--- NOTE | 2018-09-07 19:11 | PHACANCOPD ---
PHARMACY VANCOMYCIN DOSING Pt Demographics Demographics Patient Age:68 , Weight:80.200 , Gender: female Adjusted Body Weight Date: 09/07/18, Adjusted Body Weight: Kg Events Past 24 Hours Events Past 24 Hours: YES: Elevation in WBC; NO: Dialysis, Diuretic Therapy, Change in CrCl, Fever, Pending Diagnostics, Pending Procedures, Other Vancomycin Vancomycin Target Ranges: 15-20 mcg/ml Vancomycin Load Y/N: No Load Dose Date Time Vancomycin Load Dose: Date: Time: Vancomycin Dose Date: 09/07/18. Current Vancomycin Dose: Intermittent Dosing?: No Labs Labs Item Value Date Time White Blood Count 11.1 10^3/uL H 09/07/18 1504 Creatinine 1.18 MG/DL 09/07/18 1504 C-Reactive Protein, Quantitative 1.08 MG/DL H 09/07/18 1504 Vital Signs Label Value Date Time Patient Temperature 97.3 degrees F 09/07/18 1411 Temperature Source Temporal 09/07/18 1411 Micro Microbiology 09/07/18 Blood Culture, Received Pending 09/07/18 Blood Culture, Received Pending Creatinine Clearance Date:09/07/18. Creatinine Clearance: . Assessment and Plan Maintaining Current Dose?: Yes Reason for dose change: No Dose Change Pharmacist Note Pharmacist Note Date: 09/07/18. Pharmacist note: Pt. presented to the ED with right foot pain. Recently had right toe amputated. Cultures from 08/31 positive for MRSA. Pt. given 1 dose of Vanco and Merrem in the ED. We have been consulted on Vanco. Per last consult in 04/06 which resulted in desired troughs I am scheduling Vanco 750mg IV Q12H. We will continue to monitor and adjust dose as needed. JEFFRY NOLAN PHARMACY Sep 07, 2018 19:11
[2018-09-07] MEDS ORDERED: MEROPENEM INJ 1 GM in APPROPRIATE DILUENT 1 EA IV SCH (19:15)
--- NOTE | 2018-09-07 19:32 | HPE ---
DATE OF ADMISSION: 09/07/2018 CHIEF COMPLAINT: Sent by Dr. Jimenez for right foot infection. HISTORY OF THE PRESENT ILLNESS: This is a 68-year-old female with a past medical history of insulin-dependent diabetes, prior breast cancer requiring bilateral mastectomy, hypertension, hypothyroidism, who presents from Dr. Jimenez's clinic for worsening right foot infection after a recent right middle toe amputation 2 weeks ago. Apparently the patient had an outpatient procedure about 2 weeks ago where her right middle toe on her foot was amputated. This was done completely as an outpatient, and she was sent home the same day. Over the last few days, her foot has increasingly appeared infected. She has had some redness and drainage at the site of her amputation. She did see Dr. Jimenez in the office today, and he recommended admission for further evaluation. She has also felt some low grade fevers and chills with a significantly decreased appetite the last few days. EMERGENCY ROOM (ER) COURSE: In the emergency room, the patient was given a dose of vancomycin and an MRI was ordered. REVIEW OF SYSTEMS: Negative in 14 out of 14 systems except as noted above. PAST MEDICAL HISTORY: As noted above in history of the present illness. PAST SURGICAL HISTORY: Patient has a history of bilateral mastectomies for a history of breast cancer. Patient also has a history of left knee surgery and a hernia repair. HOME MEDICATIONS: Patient's home medications are: - calcium, vitamin D one tablet daily - Humalog Lispro sliding scale - linezolid 600 mg daily - meloxicam 15 mg by mouth daily - vitamin D 50,000 units every 2 weeks - alendronate 70 mg every week - Toujeo 30 units subcu nightly - Toujeo 80 units subcu daily - aspirin 81 mg daily - chlorthalidone 25 mg daily - duloxetine 30 mg daily - ferrous sulfate 325 mg daily - gabapentin 800 mg by mouth three times a day - Synthroid 137 mcg daily - lisinopril 20 mg by mouth twice a day - rosuvastatin 40 mg daily ALLERGIES: The patient is allergic to PENICILLINS AND PENICILLIN CROSS REACTORS. SOCIAL HISTORY: The patient lives alone. She has a boyfriend who lives in the building. She is in the process of going through a divorce. No smoking, alcohol, or drugs. FAMILY HISTORY: The patient does have a history of mother with diabetes. PHYSICAL EXAM: On exam, vital signs show a temperature of 97.3, blood pressure of 182/80, pulse of 104, respirations 17, saturating 99% on room air. General: She is in no acute distress and breathing comfortably. HEENT Exam: Oropharynx clear. Neck: Supple. Cardiovascular: Regular rate and rhythm. No murmurs, rubs, gallops. Lungs: Clear to auscultation bilaterally. Abdomen: Soft, nontender, nondistended. Positive bowel sounds. Extremities: No clubbing, cyanosis, edema. Skin: Her right foot has erythema at the site of her right middle toe amputation. There is an area of skin opening with pus-like drainage. It is warm and tender to touch. Erythema extends to the dorsum of the foot. Neurologic: She is alert and oriented times three, follows simple commands. No focal neurologic deficits. Psych: Mood stable. LABORATORY: Patient's labs showed CBC with a white count of 11.1, hemoglobin of 10.2 and hematocrit 31, platelets of 275. Chemistry shows a creatinine of 1.18, potassium of 4, glucose of 220. C-reactive protein elevated 1.08. ESR is greater than 140. IMAGING: Right foot x-ray shows soft tissue swelling at the forefoot and interphalangeal (IP) joint of the great toe. Status post 3rd toe amputation. Vascular calcification. Heel spurs. No acute bony destructive lesion. MRI is pending at this time. ASSESSMENT AND PLAN: This is a 68-year-old female with a past medical history of diabetes, hypertension, prior breast cancer, with a recent history of right middle toe amputation, who now presents with worsening infection at the site of her recent surgery. PROBLEMS: 1. Right diabetic foot infection. At this time, I am starting the patient on broad-spectrum antibiotics with vancomycin and meropenem. She does have allergies to penicillins and, therefore, I will start meropenem for broad-spectrum gram-negative coverage. We will follow her cultures. An MRI of the foot is pending. She will likely go to surgery tomorrow. Therefore, I am making her nothing by mouth after midnight for possible surgery tomorrow. 2. History of diabetes. Patient reports having a very poor appetite lately, and she is going to be nothing by mouth after midnight for surgery. Therefore, I am going to hold her home insulin and place her on a sliding scale. For now, her blood sugars are acceptable. 3. History of hypertension. I am continuing her home lisinopril and chlorthalidone for now as her blood pressures were in the 180s systolic. 4. Hypothyroidism. Continue home Synthroid. 5. Hyperlipidemia. Continue home Crestor. 6. Deep vein thrombosis (DVT) prophylaxis can start after surgery tomorrow.
[2018-09-07] MEDS ORDERED: PROHANCE 279.3MG/ML 5ML VIAL (A9576) As Ordered ONE (19:34)
[2018-09-07] MEDS: HumaLOG INSULIN (NovoLOG) PER UNIT SC SCH (21:00)
--- NOTE | 2018-09-07 21:45 | REPVR ---
EXAM: MRI Right Lower Extremity Without and With Contrast, Foot EXAM DATE/TIME: 09/07/2018 7:54 PM CLINICAL HISTORY: 68 years old, female; Pain and signs and symptoms; Cellulitis and difficulty in walking and edema and swelling, leg or foot; Yes, it is localized; Right; Prior surgery; Surgery date: 3-7 days post-operative; Surgery type: Removal of 3rd metatarsal; Patient HX: Pain, swelling, redness, possible osteo, HX of infection in the bone recent SX two weeks prior; Additional info: Abscess right foot, eval for osteomyelitis 3rd metatarsal TECHNIQUE: Imaging protocol: MR of the Right foot without and with intravenous contrast. Contrast material: prohance Contrast volume: 7 ml Contrast route: hand push, 22g angiocath Technique: Multiplanar MRI of the right foot was performed utilizing a variety of sequences prior to and following the uncomplicated administration of intravenous contrast material. COMPARISON: CR Foot, complete 09/07/2018 4:42 PM FINDINGS: The patient is status post disarticulation at the level of the third metatarsophalangeal joint. There is prominent bone marrow edema in the third metatarsal head and shaft, which is most conspicuous on the fluid sensitive sequences, although varus subtle associated T1 hypointensity and enhancement. There is subtle bone marrow edema in the second and fourth metatarsal heads, as well as the base and proximal shaft of the fourth proximal phalanx. This is evident predominantly on the fluid sensitive sequences and is therefore likely reactive. There is no MR evidence of acute fracture or dislocation. Alignment is anatomic. No definite erosive/destructive changes are seen. There is no lytic or blastic lesion. There is diffuse soft tissue swelling and subcutaneous edema with associated enhancement and overlying skin thickening, most pronounced at the operative site. There is loculated fluid and phlegmonous change along the dorsum of the third metatarsal head, tracking along the dorsum of the fourth metatarsophalangeal joint and into the third intertarsal space. No acute tendon or ligament injury is appreciated. IMPRESSION: 1. Postoperative changes associated with disarticulation at the third metatarsophalangeal joint with prominent soft tissue swelling and phlegmonous change at the operative site, as described above. 2. Acute osteomyelitis of the third metatarsal. 3. Probable reactive bone marrow edema in the second and fourth metatarsal heads, as well as the base of the fourth proximal phalanx. 4. Additional findings, as above. Electronically signed by: Alonzo Patterson On 09/07/2018 21:45:04 PM
[2018-09-07] MEDS: LISINOPRIL 20 MG TAB PO SCH (21:54)
[2018-09-07] MEDS: GABAPENTIN 400 MG CAP PO SCH (21:54)
[2018-09-07 22:00] VITALS: BP 148/78
[2018-09-07] MEDS: AZTREONAM 1 GM in D5W MINI-BAG PLUS 50 ML IV SCH (23:46)
[2018-09-08 02:00] VITALS: BP 142/67
[2018-09-08] MEDS: VANCOMYCIN HCL 750 MG, VIAL MATE ADAPTER 1 EACH in D5W 250 ML IV SCH ×2 (05:27→19:04)
[2018-09-08 05:59] LABS: HEMATOCRIT 36.1 % (36.0-47.0); HEMOGLOBIN 11.3 g/dl (12.0-15.5); MEAN CORPUSCULAR HEMOGLOBIN 25.9 pg (27.0-33.0); MEAN CORPUSCULAR HGB CONC 31.3 g/dl (32.0-36.5); MEAN CORPUSCULAR VOLUME 82.8 fl (80.0-96.0); PLATELET COUNT, AUTOMATED 273 10^3/uL (150-450); RED BLOOD COUNT 4.36 10^6/uL (4.00-5.40); WHITE BLOOD COUNT 11.1 10^3/uL (4.0-10.0)
[2018-09-08 06:00] VITALS: BP 142/71
[2018-09-08] MEDS: LEVOTHYROXINE 137MCG TABLET (0.137MG) PO SCH (06:22)
[2018-09-08 06:28] LABS: CALCIUM LEVEL 9.9 MG/DL (8.8-10.2); CREATININE FOR GFR 1.14 MG/DL (0.55-1.30); GLOMERULAR FILTRATION RATE 50.5 (>45); POTASSIUM SERUM 3.8 MEQ/L (3.5-5.1)
[2018-09-08] MEDS: HumaLOG INSULIN (NovoLOG) PER UNIT SC SCH ×4 (07:30→21:00)
[2018-09-08] MEDS: FERROUS SULFATE 325MG TAB PO SCH (08:36)
[2018-09-08] MEDS: GABAPENTIN 400 MG CAP PO SCH ×3 (08:36→23:00)
[2018-09-08] MEDS: ASPIRIN 81 MG ENTERIC TAB PO SCH (08:36)
[2018-09-08] MEDS: DULoxetine 30 MG CAP (CYMBALTA) PO SCH (08:36)
[2018-09-08] MEDS: AZTREONAM 1 GM in D5W MINI-BAG PLUS 50 ML IV SCH ×2 (08:36→16:55)
[2018-09-08] MEDS: LISINOPRIL 20 MG TAB PO SCH ×2 (08:36→23:00)
[2018-09-08] MEDS: CHLORTHALIDONE 25 MG TAB PO SCH (08:36)
[2018-09-08] MEDS: ROSUVASTATIN 10 MG TAB (CRESTOR) PO SCH (08:37)
[2018-09-08 10:00] VITALS: BP 134/67
--- NOTE | 2018-09-08 13:58 | IPNPDOC ---
Date Seen The patient was seen on 09/08/18. Progress Note SUBJECTIVE: Patient was seen and examined this morning. She currently denies any pain. She states that she did have chills before being admitted however, they have subsided. She denies fevers. She denies nausea, vomiting, diarrhea, or constipation. She states she is hungry. She feels fine with exception to her foot. OBJECTIVE PHYSICAL EXAMINATION: VITAL SIGNS: Please see below. GENERAL: Awake, alert, and oriented. Lying in bed comfortably. Appears in no acute distress HEENT: Atruamatic normocephalic. Trachea is midline. Missing teeth. Mucous membranes are pink and moist CARDIOVASCULAR: Normal S1, S2 Regular rate and rhythm. No clicks rubs or murmurs RESPIRATORY: Clear to auscultation bilaterally with good respiratory effort. No wheezes, rhonci or rales. ABDOMINAL: Obese, soft, nondistended, nontender to palpation. No rebound tenderness or guarding. Positive bowel sounds EXTREMITIES: Right middle toe amputation. Currently bandaged. No edema in extremities bilaterally NEUROLOGICAL: No focal neurological deficits PSYCHOLOGICAL: Mood and affect appear appropriate LABORATORY DATA, IMAGING STUDIES, MICROBIOLOGY: Please see below. ASSESSMENT AND PLAN: Patient is a 68 year old female with a past medical history significant for IDDM, breast cancer requiring bilateral masectomy,. hypertension, hypothyroidism who had a recent right middle toe amputation by Dr. Jimenez as an outpatient due to a right bone infection. The patients toe did not improve after the amputation and she was subsequently sent to the ER where she was found to have osteomyelitis. Patient was scheduled for surgery with Dr. Jimenez. PROBLEMS: 1. Osteomyelitis of the Right foot -Patient was found to have osteomyelitis of the right foot with MRI. Patient had previously had a middle toe amputation by Dr. Jimenez. It appears the infection has progressed. -Patient is scheduled to have debridement with Dr. Jimenez -Plan to continue antibiotics broad spectrum. Patient has had MRSA infections in the past. -Awaiting cultures. Will adjust antibiotics as appropriate 2. IDDM -Patient has been made NPO for procedure. Will advance diet once her procedure is completed. -Sliding Scale coverage 3. Hypertension -Continue Lisinopril and Chlorthalidone 4. Hypothyroidism -Continue Synthroid 5. Hyperlipidemia -Continue Crestor 6. DVT prophylaxis -Will start after patients procedure VS, I&O, 24H, Fishbone Vital Signs/I&O Vital Signs Date Time Temp Pulse Resp B/P (MAP) Pulse Ox O2 Delivery O2 Flow Rate FiO2 09/08/18 10:00 97.5 80 19 134/67 (89) 97 09/07/18 21:01 Room Air I&O- Last 24 Hours up to 6 AM 09/08/18 06:00 Intake Total 120 ml Output Total 400 ml Balance -280 ml Laboratory Data 24H LABS Laboratory Tests 2 09/07/18 15:04: Immature Granulocyte % (Auto) 1.4, White Blood Count 11.1H, Red Blood Count 3.84L, Hemoglobin 10.2L, Hematocrit 31.3L, Mean Corpuscular Volume 81.5, Mean Corpuscular Hemoglobin 26.6L, Mean Corpuscular Hemoglobin Concent 32.6, Red Cell Distribution Width 13.7, Platelet Count 275, Neutrophils (%) (Auto) 74.2H, Lymphocytes (%) (Auto) 15.3L, Monocytes (%) (Auto) 6.7H, Eosinophils (%) (Auto) 1.7, Basophils (%) (Auto) 0.7, Neutrophils # (Auto) 8.2H, Lymphocytes # (Auto) 1.7, Monocytes # (Auto) 0.7, Eosinophils # (Auto) 0.2, Basophils # (Auto) 0.1, Nucleated Red Blood Cells % (auto) 0.0, Erythrocyte Sedimentation Rate > 140H, Anion Gap 10, Glomerular Filtration Rate 48.5, Blood Urea Nitrogen 33H, Creatinine 1.18, Sodium Level 136, Potassium Level 4.0, Chloride Level 101, Carbon Dioxide Level 25, Calcium Level 9.7, Aspartate Amino Transf (AST/SGOT) 15, Alanine Aminotransferase (ALT/SGPT) 17, Alkaline Phosphatase 81, Total Bilirubin 1.0, Total Protein 8.0, Albumin 3.6, C-Reactive Protein, Quantitative 1.08H, Albumin/Globulin Ratio 0.82L 09/08/18 05:44: Nucleated Red Blood Cells % (auto) 0.0, Anion Gap 9, Glomerular Filtration Rate 50.5, Blood Urea Nitrogen 30H, Creatinine 1.14, Sodium Level 138, Potassium Level 3.8, Chloride Level 104, Carbon Dioxide Level 25, Calcium Level 9.9 CBC/BMP Laboratory Tests 09/07/18 15:04 Red Blood Count 3.84 L, Mean Corpuscular Volume 81.5, Mean Corpuscular Hemoglobin 26.6 L, Mean Corpuscular Hemoglobin Concent 32.6, Red Cell Distribution Width 13.7, Neutrophils (%) (Auto) 74.2 H, Lymphocytes (%) (Auto) 15.3 L, Monocytes (%) (Auto) 6.7 H, Eosinophils (%) (Auto) 1.7, Basophils (%) (Auto) 0.7, Neutrophils # (Auto) 8.2 H, Lymphocytes # (Auto) 1.7, Monocytes # (Auto) 0.7, Eosinophils # (Auto) 0.2, Basophils # (Auto) 0.1, Calcium Level 9.7, Aspartate Amino Transf (AST/SGOT) 15, Alanine Aminotransferase (ALT/SGPT) 17, Alkaline Phosphatase 81, Total Bilirubin 1.0, Total Protein 8.0, Albumin 3.6 09/08/18 05:44 Red Blood Count 4.36, Mean Corpuscular Volume 82.8, Mean Corpuscular Hemoglobin 25.9 L, Mean Corpuscular Hemoglobin Concent 31.3 L, Red Cell Distribution Width 13.7, Calcium Level 9.9 Microbiology Microbiology 09/07/18 Blood Culture, Received Pending 09/07/18 Blood Culture, Received Pending GME ATTESTATION GME ATTESTATION My faculty preceptor for this patient encounter was physically present during the encounter and was fully available. All aspects of the patient interview, examination, medical decision making process, and medical care plan development were reviewed and approved by the faculty preceptor. The faculty preceptor is aware and concurs with the plan as stated in the body of this note and will attest to such by his/her cosignature. JUAN HOLM DO Sep 08, 2018 13:58
[2018-09-08 14:00] VITALS: BP 152/81
[2018-09-08] MEDS ORDERED: BUPIVACAINE HCL 0.5% 10 ML VIAL As Ordered ONE (16:40)
[2018-09-08] MEDS ORDERED: LIDOCAINE 1% MDV 20ML VIAL As Ordered ONE (16:40)
[2018-09-08 18:00] VITALS: BP 140/72
[2018-09-08] MEDS ORDERED: PROPOFOL 200 MG/20 ML VIAL As Ordered ONE (20:18)
[2018-09-08] MEDS ORDERED: LIDOCAINE 2% INJ 100 MG/5 ML SDV (FOR ANES.) As Ordered ONE (20:18)
[2018-09-08] MEDS ORDERED: fentaNYL 100 MCG/2 ML INJECTION (J3010) As Ordered ONE (21:02)
[2018-09-08] MEDS ORDERED: MIDAZOLAM INJ 2 MG/2 ML VIAL (J2250) As Ordered ONE (21:02)
[2018-09-08] MEDS ORDERED: ONDANSETRON 4MG/2ML VIAL (J2405) As Ordered ONE (21:31)
[2018-09-09] MEDS: AZTREONAM 1 GM in D5W MINI-BAG PLUS 50 ML IV SCH ×3 (00:16→15:38)
[2018-09-09] MEDS: PERCOCET 5MG/325MG TAB PO PRN ×3 (00:16→20:09)
[2018-09-09] MEDS ORDERED: MORPHINE 4 MG/ML 1ML VIAL/SYRINGE (J2270) IV PRN ×2 (01:15)
[2018-09-09 02:00] VITALS: BP_SYST 138; BP_SYST 157; BP_DIAS 68; BP_DIAS 79
[2018-09-09 06:00] VITALS: BP 128/64
[2018-09-09] MEDS: LEVOTHYROXINE 137MCG TABLET (0.137MG) PO SCH (06:34)
[2018-09-09] MEDS: VANCOMYCIN HCL 750 MG, VIAL MATE ADAPTER 1 EACH in D5W 250 ML IV SCH (06:35)
[2018-09-09] MEDS: DULoxetine 30 MG CAP (CYMBALTA) PO SCH (08:29)
[2018-09-09] MEDS: GABAPENTIN 400 MG CAP PO SCH ×3 (08:29→20:09)
[2018-09-09] MEDS: CHLORTHALIDONE 25 MG TAB PO SCH (08:29)
[2018-09-09] MEDS: FERROUS SULFATE 325MG TAB PO SCH (08:29)
[2018-09-09] MEDS: ASPIRIN 81 MG ENTERIC TAB PO SCH (08:29)
[2018-09-09] MEDS: LISINOPRIL 20 MG TAB PO SCH ×2 (08:30→20:09)
[2018-09-09] MEDS: HumaLOG INSULIN (NovoLOG) PER UNIT SC SCH ×4 (08:30→21:41)
[2018-09-09] MEDS: ROSUVASTATIN 10 MG TAB (CRESTOR) PO SCH (08:31)
[2018-09-09] MEDS ORDERED: PNEUMOCOCCAL VACCINE 0.5ML SYRINGE(90732) PNEUMOVAX 23 IM ONE (09:00)
[2018-09-09 10:00] VITALS: BP 123/65
--- NOTE | 2018-09-09 11:52 | IPNPDOC ---
Date Seen The patient was seen on 09/09/18. Progress Note SUBJECTIVE: Patient seen and examined this morning. She currently has no complaints. She states that her foot was in pain yesterday however today she do es not have any pain. She denies fevers or chills, nausea or vomiting. OBJECTIVE PHYSICAL EXAMINATION: VITAL SIGNS: Please see below. GENERAL: Awake, alert, and oriented. Lying in bed comfortably. Appears in no acute distress HEENT: Atruamatic normocephalic. Trachea is midline. Missing teeth. Mucous membranes are pink and moist CARDIOVASCULAR: Normal S1, S2 Regular rate and rhythm. No clicks rubs or murmurs RESPIRATORY: Clear to auscultation bilaterally with good respiratory effort. No wheezes, rhonci or rales. ABDOMINAL: Obese, soft, nondistended, nontender to palpation. No rebound tenderness or guarding. Positive bowel sounds EXTREMITIES: Right middle toe amputation. Currently bandaged. No edema in extremities bilaterally NEUROLOGICAL: No focal neurological deficits PSYCHOLOGICAL: Mood and affect appear appropriate LABORATORY DATA, IMAGING STUDIES, MICROBIOLOGY: Please see below. ASSESSMENT AND PLAN: Patient is a 68 year old female with a past medical history significant for IDDM, breast cancer requiring bilateral masectomy,. hypertension, hypothyroidism who had a recent right middle toe amputation by Dr. Jimenez as an outpatient due to a right bone infection. The patients toe did not improve after the amputation and she was subsequently sent to the ER where she was found to have osteomyelitis. Patient was scheduled for surgery with Dr. Jimenez. PROBLEMS: 1. Osteomyelitis of the Right foot -Patient was found to have osteomyelitis of the right foot with MRI. Patient had previously had a middle toe amputation by Dr. Jimenez. It appears the infection has progressed. -Patient has had Incision and Drainage of right middle toe. -Plan to continue antibiotics broad spectrum. Patient has had MRSA infections in the past. -Awaiting cultures. Will adjust antibiotics as appropriate 2. IDDM -Consistent carbohydrate diet -Sliding Scale coverage 3. Hypertension -Continue Lisinopril and Chlorthalidone 4. Hypothyroidism -Continue Synthroid 5. Hyperlipidemia -Continue Crestor 6. DVT prophylaxis -Heparin SQ VS, I&O, 24H, Fishbone Vital Signs/I&O Vital Signs Date Time Temp Pulse Resp B/P (MAP) Pulse Ox O2 Delivery O2 Flow Rate FiO2 09/09/18 10:00 97.1 86 16 123/65 (84) 94 09/07/18 21:01 Room Air I&O- Last 24 Hours up to 6 AM 09/09/18 06:00 Intake Total 1000 ml Output Total 453 ml Balance 547 ml Laboratory Data 24H LABS Laboratory Tests 2 09/08/18 12:01: Bedside Glucose (Misc Panel) 187H 09/08/18 16:55: Bedside Glucose (Misc Panel) 153H 09/08/18 22:38: Bedside Glucose (Misc Panel) 187H Microbiology Microbiology 09/07/18 Blood Culture - Preliminary, Resulted No growth after 24 hours . All specim... 09/07/18 Blood Culture - Preliminary, Resulted No growth after 24 hours . All specim... 09/08/18 Gram Stain - Final, Resulted 09/08/18 Wound Culture, Resulted Pending 09/08/18 Anaerobic Culture, Resulted Pending GME ATTESTATION GME ATTESTATION My faculty preceptor for this patient encounter was physically present during the encounter and was fully available. All aspects of the patient interview, examination, medical decision making process, and medical care plan development were reviewed and approved by the faculty preceptor. The faculty preceptor is aware and concurs with the plan as stated in the body of this note and will attest to such by his/her cosignature. JUAN HOLM DO Sep 09, 2018 11:52
[2018-09-09 14:00] VITALS: BP 106/56
[2018-09-09] MEDS: HEPARIN SOD (PORCINE) 5000 UNITS/ML VIAL SQ SCH ×2 (15:38→21:41)
[2018-09-09 18:00] VITALS: BP 115/54
[2018-09-09 22:00] VITALS: BP 123/59
[2018-09-10] MEDS: AZTREONAM 1 GM in D5W MINI-BAG PLUS 50 ML IV SCH ×4 (00:07→23:19)
[2018-09-10 02:00] VITALS: BP 120/56
[2018-09-10] MEDS: PERCOCET 5MG/325MG TAB PO PRN ×2 (03:49→15:26)
[2018-09-10] MEDS: LEVOTHYROXINE 137MCG TABLET (0.137MG) PO SCH (05:48)
[2018-09-10] MEDS: HEPARIN SOD (PORCINE) 5000 UNITS/ML VIAL SQ SCH ×3 (05:49→23:19)
[2018-09-10] MEDS: VANCOMYCIN HCL 750 MG, VIAL MATE ADAPTER 1 EACH in D5W 250 ML IV SCH (05:49)
[2018-09-10 06:00] VITALS: BP 110/53
[2018-09-10 07:25] LABS: HEMATOCRIT 25.7 % (36.0-47.0); MEAN CORPUSCULAR HEMOGLOBIN 26.1 pg (27.0-33.0); MEAN CORPUSCULAR HGB CONC 31.1 g/dl (32.0-36.5); MEAN CORPUSCULAR VOLUME 83.7 fl (80.0-96.0); PLATELET COUNT, AUTOMATED 200 10^3/uL (150-450); RED BLOOD COUNT 3.07 10^6/uL (4.00-5.40); WHITE BLOOD COUNT 8.4 10^3/uL (4.0-10.0)
[2018-09-10 07:46] LABS: C REACTIVE PROTEIN QUANTITATIV 7.13 MG/DL (0.00-0.30); CREATININE FOR GFR 2.03 MG/DL (0.55-1.30); GLOMERULAR FILTRATION RATE 25.9 (>45); POTASSIUM SERUM 3.9 MEQ/L (3.5-5.1)
[2018-09-10 08:02] LABS: ERYTHROCYTE SEDIMENTATION RATE 125 mm/hr (0-30)
[2018-09-10] MEDS: CHLORTHALIDONE 25 MG TAB PO SCH (08:34)
[2018-09-10] MEDS: GABAPENTIN 400 MG CAP PO SCH ×3 (08:34→20:29)
[2018-09-10] MEDS: HumaLOG INSULIN (NovoLOG) PER UNIT SC SCH ×4 (08:34→20:29)
[2018-09-10] MEDS: DULoxetine 30 MG CAP (CYMBALTA) PO SCH (08:34)
[2018-09-10] MEDS: ROSUVASTATIN 10 MG TAB (CRESTOR) PO SCH (08:35)
[2018-09-10] MEDS: FERROUS SULFATE 325MG TAB PO SCH (08:35)
[2018-09-10 08:36] VITALS: BP 109/60
[2018-09-10] MEDS: LISINOPRIL 20 MG TAB PO SCH (08:36)
[2018-09-10] MEDS: ASPIRIN 81 MG ENTERIC TAB PO SCH (08:50)
[2018-09-10 14:00] VITALS: BP 148/76
--- NOTE | 2018-09-10 14:14 | IPN ---
DATE: 09/09/2018 Patient seen and examined at bedside. States she had some pain last night but is improved this morning. She is not having any pain presently. Denies other complaints. No nausea, vomiting, fever, or chills. Vital signs are reviewed. White blood cell count is 11.1, hemoglobin is 11.3. Operating room (OR) cultures: Gram stain shows few negative rods. Other cultures are pending. Pathology is pending. Lower extremity examination: Erythema slightly improved. Wound base without purulence or necrosis on today's exam. ASSESSMENT: A 68-year-old female with abscess, osteomyelitis, status post incision and drainage (I and D) and 3rd metatarsal head excision. PLAN: Continue empiric antibiotics. Await culture results. She should have saline-soaked packing performed twice daily. Further plans for wound irrigation versus closure based on progression of infection. Will follow.
--- NOTE | 2018-09-10 14:58 | IPNPDOC ---
Date Seen The patient was seen on 09/10/18. Progress Note SUBJECTIVE: Patient tells me that she feeling well she denies lethargy shortness of breath fevers chills or any pain OBJECTIVE PHYSICAL EXAMINATION: VITAL SIGNS: Please see below. GENERAL: Awake, alert, and oriented. Lying in bed comfortably. Appears somewhat lethargic but this is not different than previous days HEENT: Trachea is midline. Missing teeth. Mucous membranes are pink and moist , she does appear pale CARDIOVASCULAR: Normal S1, S2 Regular rate and rhythm. No clicks rubs or murmurs RESPIRATORY: Clear to auscultation bilaterally ABDOMINAL: Obese, soft, nondistended, nontender to palpation. Positive bowel sounds EXTREMITIES: Right middle toe amputation. Currently bandaged. No edema in extremities bilaterally LABORATORY DATA, IMAGING STUDIES, MICROBIOLOGY: Please see below. ASSESSMENT AND PLAN: Patient is a 68 year old female with a diabetic foot infection PROBLEMS: 1. Osteomyelitis of the Right foot : Podiatry help greatly appreciated she is status post debridement we're following her bone cultures up in deferring further palpitations or debridements to podiatry as indicated, Plan to continue antibiotics broad spectrum. Patient has had MRSA infections in the past. Continue with pain control with narcotics and gabapentin 2. IDDM: Consistent carbohydrate diet, Sliding Scale coverage 3. Hypertension : Continue Lisinopril and Chlorthalidone 4. Hypothyroidism Continue Synthroid 5. Hyperlipidemia Continue Crestor 6. Mood disorder: Continue with Cymbalta 7. Iron deficiency anemia: Continue with iron sulfate 8. DVT prophylaxis : Heparin SQ 9. Acute kidney injury: Etiology is not immediately clear I'm concerned for medication adverse effect possibly vancomycin, I will switch her to Ceftaroline reaction to penicillins is a rash discontinue her hydrochlorothiazide and lisinopril and start some gentle IV fluids should her renal function fail to s tabilize within the next 24 hours we'll consider nephrology consultation Disposition: Pending podiatry and PT VS, I&O, 24H, Fishbone Vital Signs/I&O Vital Signs Date Time Temp Pulse Resp B/P (MAP) Pulse Ox O2 Delivery O2 Flow Rate FiO2 09/10/18 08:36 109/60 09/10/18 06:00 97.7 86 20 96 2.0 09/07/18 21:01 Room Air I&O- Last 24 Hours up to 6 AM 09/10/18 06:00 Intake Total 870 ml Output Total 0 ml Balance 870 ml Laboratory Data 24H LABS Laboratory Tests 2 09/09/18 16:44: Bedside Glucose (Misc Panel) 258H 09/09/18 16:58: Vancomycin Level Trough 20.4H 09/10/18 07:12: Nucleated Red Blood Cells % (auto) 0.0, Erythrocyte Sedimentation Rate 125H, Anion Gap 7L, Glomerular Filtration Rate 25.9L, Blood Urea Nitrogen 52#H, Creatinine 2.03#H, Sodium Level 135L, Potassium Level 3.9, Chloride Level 105, Carbon Dioxide Level 23, Calcium Level 8.0#L, C-Reactive Protein, Quantitative 7.13H CBC/BMP Laboratory Tests 09/10/18 07:12 Red Blood Count 3.07 L, Mean Corpuscular Volume 83.7, Mean Corpuscular Hemoglobin 26.1 L, Mean Corpuscular Hemoglobin Concent 31.1 L, Red Cell Distribution Width 13.6, Calcium Level 8.0 #L Microbiology Microbiology 09/07/18 Blood Culture - Preliminary, Resulted No Growth after 48 hours. All Specime... 09/07/18 Blood Culture - Preliminary, Resulted No Growth after 48 hours. All Specime... 09/08/18 Gram Stain - Final, Resulted 09/08/18 Wound Culture, Resulted Pending 09/08/18 Anaerobic Culture - Final, Resulted JERROD ROBLEDO MD Sep 10, 2018 14:58
[2018-09-10] MEDS: NS 1,000 ML IV SCH (15:27)
[2018-09-10] MEDS: CEFTAROLINE FOSAMIL 300 MG in D5W 50 ML IV SCH (20:29)
[2018-09-10 22:00] VITALS: BP 117/59
[2018-09-11 06:00] VITALS: BP 117/60
[2018-09-11 06:07] LABS: HEMATOCRIT 25.5 % (36.0-47.0); HEMOGLOBIN 8.1 g/dl (12.0-15.5); MEAN CORPUSCULAR HEMOGLOBIN 26.1 pg (27.0-33.0); MEAN CORPUSCULAR HGB CONC 31.8 g/dl (32.0-36.5); MEAN CORPUSCULAR VOLUME 82.3 fl (80.0-96.0); PLATELET COUNT, AUTOMATED 188 10^3/uL (150-450); WHITE BLOOD COUNT 8.3 10^3/uL (4.0-10.0)
[2018-09-11] MEDS: HEPARIN SOD (PORCINE) 5000 UNITS/ML VIAL SQ SCH ×3 (06:36→22:05)
[2018-09-11] MEDS: CEFTAROLINE FOSAMIL 300 MG in D5W 50 ML IV SCH ×2 (06:36→18:02)
[2018-09-11] MEDS: NS 1,000 ML IV SCH (06:36)
[2018-09-11] MEDS: LEVOTHYROXINE 137MCG TABLET (0.137MG) PO SCH (06:36)
[2018-09-11 06:37] LABS: CALCIUM LEVEL 8.4 MG/DL (8.8-10.2); CREATININE FOR GFR 1.45 MG/DL (0.55-1.30); GLOMERULAR FILTRATION RATE 38.2 (>45); POTASSIUM SERUM 4.4 MEQ/L (3.5-5.1); VANCOMYCIN RANDOM 17.4 UG/ML
[2018-09-11] MEDS: AZTREONAM 1 GM in D5W MINI-BAG PLUS 50 ML IV SCH ×2 (08:49→16:40)
[2018-09-11] MEDS: HumaLOG INSULIN (NovoLOG) PER UNIT SC SCH ×4 (08:50→22:05)
[2018-09-11] MEDS: GABAPENTIN 400 MG CAP PO SCH ×3 (08:50→22:04)
[2018-09-11] MEDS: DULoxetine 30 MG CAP (CYMBALTA) PO SCH (08:50)
[2018-09-11] MEDS: ROSUVASTATIN 10 MG TAB (CRESTOR) PO SCH (08:50)
[2018-09-11] MEDS: ASPIRIN 81 MG ENTERIC TAB PO SCH (08:51)
[2018-09-11] MEDS: FERROUS SULFATE 325MG TAB PO SCH (08:51)
[2018-09-11] MEDS ORDERED: VANCOMYCIN HCL 750 MG, VIAL MATE ADAPTER 1 EACH in D5W 250 ML IV SCH (09:00)
--- NOTE | 2018-09-11 09:00 | RO ---
DATE OF PROCEDURE: 09/08/2018 PREPROCEDURE DIAGNOSIS: Right foot infection, osteomyelitis abscess. POSTPROCEDURE DIAGNOSIS: Right foot infection, osteomyelitis abscess. PROCEDURE: Right foot incision and drainage with 3rd metatarsal head excision. SURGEON: Dr. Daniel Jimenez. CREATIVE ARTS THERAPIST: None. ANESTHESIA: Monitored anesthesia care. Preoperative injection of 13 mL of 1:1 mixture of 1% lidocaine and 0.5 Marcaine plain. ESTIMATED BLOOD LOSS: 3 mL. MATERIALS: None. SPECIMEN: Right 3rd metatarsal head and culture of anaerobic. COMPLICATIONS: None. CONDITION: Stable. Carol Ann Grier is a pleasant but unfortunate 68-year-old female who recently had a 3rd toe amputation due to gangrene and infection. On her second postop visit, she was noted to have worsening erythema. She had been treated initially with empiric antibiotics. Culture swabs were taken and she ultimately grew out Staphylococcus aureus (MRSA). She was started on oral Zyvox but the wound had progressed on her third postop appointment with further abscess formation and the decision was made to send her to the hospital for admission and surgical intervention. Patient's side and site were identified and marked in the preop holding area. Consent was reviewed written obtained along with risks, complications and alternative treatments to the procedure were explained to the patient in detail and all questions were answered. DESCRIPTION OF PROCEDURE: The patient was brought to the operating room and placed on the operating table in supine position. Monitored anesthesia care was given by the anesthesia team. Preoperative injection of 13 mL of 1:1 mixture of 1% lidocaine plain, 0.5% Marcaine plain were injected to the right foot. The right foot was prepped and draped in the usual sterile fashion. A tourniquet was applied to the right ankle and inflated to 250 mmHg. The 3rd toe amputation site was opened from previous suture removal in my office. This was extended proximally. There was noted to be purulence along the 3rd metatarsal plane as well as extending over the dorsal surface of the 4th metatarsal. There was some necrotic tissue overlying the 3rd metatarsal with a good amount of tuft was infected and noted to be partially eroded as suggested by the MRI taken preoperatively. Using a sagittal saw, the 3rd metatarsal head was excised and sent for pathology. Culture swabs were taken of the purulent fluid. Necrotic tissue was debrided and the purulence was irrigated with 3000 liters of pulsed lavage normal saline. Debridement continued until no further necrotic tissue or purulence was identified. Following this, saline-soaked packing was placed in the wound and sterile dressings were applied. Tourniquet was deflated. The patient was brought to the postanesthesia care unit (PACU), all vital signs stable, neurovascular status intact. She will be re-admitted to the floor for continued antibiotics and monitoring. Depending on wound progression, we will plan either further irrigation or wound closure. Follow patient in-house.
[2018-09-11 10:00] VITALS: BP 153/76
--- NOTE | 2018-09-11 10:11 | IPNPDOC ---
Date Seen The patient was seen on 09/11/18. Progress Note SUBJECTIVE: Patient was seen and examined this morning. She currently denies any complaints. She states that her pain has improved although it is still there. She denies fevers, or chills. She does admit to feeling tired this morning. She denies chest pain or shortness of breath OBJECTIVE PHYSICAL EXAMINATION: VITAL SIGNS: Please see below. GENERAL: Awake, alert, and oriented. Lying in bed comfortably. Appears in no acute distress. Appears more tired this morning HEENT: Atruamatic normocephalic. Trachea is midline. Missing teeth. Mucous membranes are pink and moist CARDIOVASCULAR: Normal S1, S2 Regular rate and rhythm. No clicks rubs or murmurs RESPIRATORY: Clear to auscultation bilaterally with good respiratory effort. No wheezes, rhonci or rales. ABDOMINAL: Obese, soft, nondistended, nontender to palpation. No rebound tenderness or guarding. Positive bowel sounds EXTREMITIES: Right middle toe amputation. Currently bandaged. No edema in extremities bilaterally NEUROLOGICAL: No focal neurological deficits PSYCHOLOGICAL: Mood and affect appear appropriate LABORATORY DATA, IMAGING STUDIES, MICROBIOLOGY: Please see below. DVT prophylaxis ordered?: YES ASSESSMENT AND PLAN: Patient is a 68 year old female with a past medical history significant for IDDM, breast cancer requiring bilateral masectomy,. hypertension, hypothyroidism who had a recent right middle toe amputation by Dr. Jimenez as an outpatient due to a right bone infection. The patients toe did not improve after the amputation and she was subsequently sent to the ER where she was found to have osteomyelitis. Patient was scheduled for surgery with Dr. Jimenez. PROBLEMS: 1. Osteomyelitis of the Right foot -Patient was found to have osteomyelitis of the right foot with MRI. Patient had previously had a middle toe amputation by Dr. Jimenez. It appears the infection has progressed. -Patient has had Incision and Drainage of right middle toe. -Gram stains have shown Gram negative Rods although few. Cultures are still pending. -Patient continued on broad spectrum. Her Vancomycin has been discontinued and she was started on Ceftaroline as she developed ALLA. She does have a penicillin allergy although does not report rash or any allergic symptoms 2. Acute Kidney Injury -Unclear etiology but likely secondary to medications. Patient has been taken off of Vancomycin,. HCTZ and lisinopril are held. Patient received gentle hydration. Renal function appears to be improving. Will continue to monitor. 3. Anemia -Patient has a history of possible iron deficiency anemia. She is currently r eceiving iron sulfate. Her Hb has dropped today and yesterday. She did receive some fluids and her anemia may be dilutional. She denies any bleeding although a director industrial nursing had reported vaginal bleeding to the nurse. -Anemia workup including peripheral smear and iron studies -Type and cross -Transfuse 2 units PRBCs 4. IDDM -Consistent carbohydrate diet -Sliding Scale coverage 5. Hypertension -Continue Lisinopril and Chlorthalidone 6. Hypothyroidism -Continue Synthroid 7. Hyperlipidemia -Continue Crestor 8. Mood disorder -Cymbalta 9. DVT prophylaxis -Heparin SQ VS, I&O, 24H, Fishbone Vital Signs/I&O Vital Signs Date Time Temp Pulse Resp B/P (MAP) Pulse Ox O2 Delivery O2 Flow Rate FiO2 09/11/18 06:00 98.1 89 18 117/60 (79) 98 09/10/18 20:15 2.0 09/07/18 21:01 Room Air I&O- Last 24 Hours up to 6 AM 09/11/18 06:00 Intake Total 2015 ml Output Total 400 ml Balance 1615 ml Laboratory Data 24H LABS Laboratory Tests 2 09/11/18 05:55: Nucleated Red Blood Cells % (auto) 0.0, Anion Gap 6L, Glomerular Filtration Rate 38.2L, Blood Urea Nitrogen 49H, Creatinine 1.45H, Sodium Level 136, Potassium Level 4.4, Chloride Level 107, Carbon Dioxide Level 23, Calcium Level 8.4L, Random Vancomycin Level 17.4 CBC/BMP Laboratory Tests 09/11/18 05:55 Red Blood Count 3.10 L, Mean Corpuscular Volume 82.3, Mean Corpuscular Hemoglobin 26.1 L, Mean Corpuscular Hemoglobin Concent 31.8 L, Red Cell Distribution Width 13.6, Calcium Level 8.4 L Microbiology Microbiology 09/07/18 Blood Culture - Preliminary, Resulted No Growth after 72 hours. All specime... 09/07/18 Blood Culture - Preliminary, Resulted No Growth after 72 hours. All specime... 09/08/18 Gram Stain - Final, Resulted 09/08/18 Wound Culture - Preliminary, Resulted Streptococcus Anginosus Grp Staphylococcus Sp Coag Neg 09/08/18 Anaerobic Culture - Final, Resulted GME ATTESTATION GME ATTESTATION My faculty preceptor for this patient encounter was physically present during the encounter and was fully available. All aspects of the patient interview, examination, medical decision making process, and medical care plan development were reviewed and approved by the faculty preceptor. The faculty preceptor is aware and concurs with the plan as stated in the body of this note and will attest to such by his/her cosignature. JUAN HOLM DO Sep 11, 2018 10:11
[2018-09-11 11:40] VITALS: BP 134/64
[2018-09-11] MEDS: PERCOCET 5MG/325MG TAB PO PRN (12:12)
[2018-09-11 12:33] LABS: PERCENT SATURATION 27.3 % (13.2-45.0)
[2018-09-11 14:00] VITALS: BP 132/62
[2018-09-11 18:00] VITALS: BP 139/82
[2018-09-11 22:00] VITALS: BP 148/68
[2018-09-12] VITALS (9 sets, daily range): BP systolic 134–166; BP diastolic 58–84
[2018-09-12] MEDS: AZTREONAM 1 GM in D5W MINI-BAG PLUS 50 ML IV SCH ×3 (00:35→15:58)
[2018-09-12] MEDS: NS 1,000 ML IV SCH ×2 (00:35→13:12)
[2018-09-12] MEDS: LEVOTHYROXINE 137MCG TABLET (0.137MG) PO SCH (06:25)
[2018-09-12] MEDS: CEFTAROLINE FOSAMIL 300 MG in D5W 50 ML IV SCH ×2 (06:26→18:46)
[2018-09-12 06:33] LABS: HEMATOCRIT 32.6 % (36.0-47.0); MEAN CORPUSCULAR HEMOGLOBIN 27.3 pg (27.0-33.0); MEAN CORPUSCULAR HGB CONC 32.8 g/dl (32.0-36.5); MEAN CORPUSCULAR VOLUME 83.2 fl (80.0-96.0); PLATELET COUNT, AUTOMATED 190 10^3/uL (150-450); RED BLOOD COUNT 3.92 10^6/uL (4.00-5.40); WHITE BLOOD COUNT 8.1 10^3/uL (4.0-10.0)
[2018-09-12 06:40] LABS: HEMOGLOBIN 10.7 g/dl (12.0-15.5)
[2018-09-12 06:55] LABS: CALCIUM LEVEL 8.5 MG/DL (8.8-10.2); CREATININE FOR GFR 1.22 MG/DL (0.55-1.30); GLOMERULAR FILTRATION RATE 46.7 (>45); POTASSIUM SERUM 4.6 MEQ/L (3.5-5.1)
[2018-09-12] MEDS ORDERED: LIDOCAINE 2% INJ 100 MG/5 ML SDV (FOR ANES.) As Ordered ONE (07:58)
[2018-09-12] MEDS ORDERED: ONDANSETRON 4MG/2ML VIAL (J2405) As Ordered ONE (07:58)
[2018-09-12] MEDS ORDERED: dexameTHASONE 4 MG/ML 1ML VIAL (J1100) As Ordered ONE (07:58)
[2018-09-12] MEDS ORDERED: KETOROLAC 60 MG/2 ML VIAL (J1885) As Ordered ONE (07:58)
[2018-09-12] MEDS ORDERED: PROPOFOL 200 MG/20 ML VIAL As Ordered ONE (07:58)
[2018-09-12] MEDS ORDERED: MIDAZOLAM INJ 2 MG/2 ML VIAL (J2250) As Ordered ONE (07:58)
[2018-09-12] MEDS ORDERED: fentaNYL 100 MCG/2 ML INJECTION (J3010) As Ordered ONE (07:59)
[2018-09-12] MEDS ORDERED: PHENYLephrine HCL 500 MCG/5 ML (100MCG/ML) SYRINGE (J2370) As Ordered ONE (08:04)
[2018-09-12] MEDS: HumaLOG INSULIN (NovoLOG) PER UNIT SC SCH ×4 (08:15→21:39)
[2018-09-12] MEDS ORDERED: BUPIVACAINE HCL 0.5% 30 ML VIAL As Ordered ONE (08:53)
[2018-09-12] MEDS ORDERED: LIDOCAINE 1% MDV 20ML VIAL As Ordered ONE (08:53)
[2018-09-12] MEDS ORDERED: VANCOMYCIN HCL 500 MG/10 ML VIAL (J3370) As Ordered ONE (08:53)
[2018-09-12] MEDS ORDERED: PERCOCET 5MG/325MG TAB PO PRN (11:00)
[2018-09-12] MEDS ORDERED: LR 1,000 ML IV SCH (11:00)
[2018-09-12] MEDS: FERROUS SULFATE 325MG TAB PO SCH (12:25)
[2018-09-12] MEDS: ROSUVASTATIN 10 MG TAB (CRESTOR) PO SCH (12:26)
[2018-09-12] MEDS: GABAPENTIN 400 MG CAP PO SCH ×3 (12:26→21:39)
[2018-09-12] MEDS: DULoxetine 30 MG CAP (CYMBALTA) PO SCH (12:26)
[2018-09-12] MEDS: ASPIRIN 81 MG ENTERIC TAB PO SCH (12:26)
--- NOTE | 2018-09-12 14:22 | IPNPDOC ---
Date Seen The patient was seen on 09/12/18. Progress Note SUBJECTIVE: Patient was seen and examined this morning. She currently denies any complaints. She states that she feels less tired than she did yesterday. She did go for closure of her foot ulcer this morning. Yesterday the patient may have had some vaginal bleeding which was noted by nursing home admissions director. She currently denies any history of this. However, she has been anemic. She does admit to a hi story of hemorrhoids which may have explained the episode of blood. Patient likely had a follow-up as an outpatient for evaluation if she is having vaginal bleeding. OBJECTIVE PHYSICAL EXAMINATION: VITAL SIGNS: Please see below. GENERAL: Awake, alert, and oriented. Lying in bed comfortably. Appears in no acute distress. Patient does not appear as tired as she did on previous examination HEENT: Atruamatic normocephalic. Trachea is midline. Missing teeth. Mucous membranes are pink and moist CARDIOVASCULAR: Normal S1, S2 Regular rate and rhythm. No clicks rubs or murmurs RESPIRATORY: Clear to auscultation bilaterally with good respiratory effort. No wheezes, rhonci or rales. ABDOMINAL: Obese, soft, nondistended, nontender to palpation. No rebound tenderness or guarding. Positive bowel sounds EXTREMITIES: Right middle toe amputation. Currently bandaged. No edema in extremities bilaterally NEUROLOGICAL: No focal neurological deficits PSYCHOLOGICAL: Mood and affect appear appropriate LABORATORY DATA, IMAGING STUDIES, MICROBIOLOGY: Please see below. DVT prophylaxis ordered?: Yes ASSESSMENT AND PLAN: Patient is a 68 year old female with a past medical history significant for IDDM, breast cancer requiring bilateral masectomy,. hypertension, hypothyroidism who had a recent right middle toe amputation by Dr. Jimenez as an outpatient due to a right bone infection. The patients toe did not improve after the amputation and she was subsequently sent to the ER where she was found to have osteomyelitis. Patient was scheduled for surgery with Dr. Jimenez. PROBLEMS: 1. Osteomyelitis of the Right foot -Patient was found to have osteomyelitis of the right foot with MRI. Patient had previously had a middle toe amputation by Dr. Jimenez. It appears the infection has progressed. -Patient has had Incision and Drainage of right middle toe. -Cultures have grown Streptococcus anginosus and Staphylococcus coagulase- negative species -Pathology is demonstrated a portion of metatarsal bone with marked soft tissue necrosis and acute osteomyelitis -Patient continued on broad spectrum. Her Vancomycin has been discontinued and she was started on Ceftaroline as she developed ALLA. She does have a penicillin allergy although does not report rash or any allergic symptoms -Patient will be screened for acute rehabilitation and transition to by mouth antibiotics. Due to acute osteomyelitis. She will likely be on antibiotics for at least 6 weeks 2. Acute Kidney Injury -Unclear etiology but likely secondary to medications. Patient has been taken off of Vancomycin,. HCTZ and lisinopril are held. Patient received gentle hydration. -Renal function continues to improve 3. Anemia -Patient has a history of possible iron deficiency anemia. She is currently receiving iron sulfate. Her Hb has dropped today and yesterday. She did receive some fluids and her anemia may be dilutional. She denies any bleeding although a nursing home admissions director had reported vaginal bleeding to the nurse. -Anemia workup including peripheral smear and iron studies -Type and cross -s/p 2 units PRBCs -Currently stable 4. IDDM -Consistent carbohydrate diet -Sliding Scale coverage 5. Hypertension -Continue Lisinopril and Chlorthalidone 6. Hypothyroidism -Continue Synthroid 7. Hyperlipidemia -Continue Crestor 8. Mood disorder -Cymbalta 9. DVT prophylaxis -Heparin SQ DISPOSITION: Pending acute rehabilitation screen. VS, I&O, 24H, Fishbone Vital Signs/I&O Vital Signs Date Time Temp Pulse Resp B/P (MAP) Pulse Ox O2 Delivery O2 Flow Rate FiO2 09/12/18 13:11 97.6 81 18 134/67 (89) 98 09/12/18 10:36 10 09/07/18 21:01 Room Air I&O- Last 24 Hours up to 6 AM 09/12/18 06:00 Intake Total 1125 ml Output Total 700 ml Balance 425 ml Laboratory Data 24H LABS Laboratory Tests 2 09/11/18 17:12: Bedside Glucose (Misc Panel) 355H 09/11/18 20:48: Bedside Glucose (Misc Panel) 348H 09/12/18 06:00: Nucleated Red Blood Cells % (auto) 0.0, Anion Gap 5L, Glomerular Filtration Rate 46.7, Blood Urea Nitrogen 32H, Creatinine 1.22, Sodium Level 138, Potassium Level 4.6, Chloride Level 109H, Carbon Dioxide Level 24, Calcium Level 8.5L 09/12/18 11:28: Bedside Glucose (Misc Panel) 268H CBC/BMP Laboratory Tests 09/12/18 06:00 Red Blood Count 3.92 L, Mean Corpuscular Volume 83.2, Mean Corpuscular Hemoglobin 27.3, Mean Corpuscular Hemoglobin Concent 32.8, Red Cell Distribution Width 13.6, Calcium Level 8.5 L Microbiology Microbiology 09/07/18 Blood Culture - Preliminary, Resulted No Growth after 72 hours. All specime... 09/07/18 Blood Culture - Preliminary, Resulted No Growth after 72 hours. All specime... 09/08/18 Gram Stain - Final, Complete 09/08/18 Wound Culture - Final, Complete Streptococcus Anginosus Grp Staphylococcus Sp Coag Neg 09/08/18 Anaerobic Culture - Final, Complete GME ATTESTATION GME ATTESTATION My faculty preceptor for this patient encounter was physically present during the encounter and was fully available. All aspects of the patient interview, examination, medical decision making process, and medical care plan development were reviewed and approved by the faculty preceptor. The faculty preceptor is aware and concurs with the plan as stated in the body of this note and will attest to such by his/her cosignature. ATTENDING NOTE I, Lucy Hameed, have both independently examined this patient as well as reviewed the documentation. I have discussed in detail with the resident the findings and plan of treatment as documented in the residents documentation. I will continue to follow the patient and offer further guidance to the patients care as necessary during this hospital stay. JUAN HOLM DO Sep 12, 2018 14:22 LUCY HAMEED MD Sep 12, 2018 20:25
[2018-09-12] MEDS: PERCOCET 5MG/325MG TAB PO PRN ×2 (15:59→21:40)
[2018-09-13] MEDS: AZTREONAM 1 GM in D5W MINI-BAG PLUS 50 ML IV SCH ×4 (00:54→23:17)
[2018-09-13 02:00] VITALS: BP 135/65
[2018-09-13 06:00] VITALS: BP 138/60
[2018-09-13] MEDS: HEPARIN SOD (PORCINE) 5000 UNITS/ML VIAL SQ SCH ×3 (06:11→20:54)
[2018-09-13] MEDS: LEVOTHYROXINE 137MCG TABLET (0.137MG) PO SCH (06:11)
[2018-09-13] MEDS: PERCOCET 5MG/325MG TAB PO PRN (06:12)
[2018-09-13] MEDS: CEFTAROLINE FOSAMIL 300 MG in D5W 50 ML IV SCH ×2 (06:12→18:48)
[2018-09-13 06:55] LABS: HEMATOCRIT 34.4 % (36.0-47.0); HEMOGLOBIN 11.3 g/dl (12.0-15.5); MEAN CORPUSCULAR HEMOGLOBIN 27.6 pg (27.0-33.0); MEAN CORPUSCULAR HGB CONC 32.8 g/dl (32.0-36.5); MEAN CORPUSCULAR VOLUME 83.9 fl (80.0-96.0); PLATELET COUNT, AUTOMATED 198 10^3/uL (150-450); WHITE BLOOD COUNT 10.5 10^3/uL (4.0-10.0)
[2018-09-13 07:19] LABS: CALCIUM LEVEL 8.5 MG/DL (8.8-10.2); CREATININE FOR GFR 1.14 MG/DL (0.55-1.30); GLOMERULAR FILTRATION RATE 50.5 (>45); POTASSIUM SERUM 4.5 MEQ/L (3.5-5.1)
--- NOTE | 2018-09-13 07:38 | RO ---
DATE OF PROCEDURE: 09/07/2018 PREPROCEDURE DIAGNOSIS: Right foot open wound infection. POSTPROCEDURE DIAGNOSIS: Right foot open wound infection. PROCEDURE: Right foot incision and drainage, wound closure with implantation of antibiotic beads. SURGEON: Daniel Jimenez DPM VALET MANAGER: None. SPECIMEN: None. COMPLICATIONS: None. CONDITION: Stable. Carol Ann Grier is a 68-year-old male who had developed infection to her right foot following third toe amputation. She underwent incision and drainage with metatarsal head excision. She has been receiving antibiotics with some improvement. There had been no purulence or necrosis noted on dressing changes the last few days and decision was made to bring her to the operating room for repeat washout and possible closure. The patient side and site were identified and marked in the preoperative holding area. Consent was reviewed and obtained. All risks, complications and alternatives to the procedure were explained to the patient's in detail and all questions were answered. DESCRIPTION OF PROCEDURE: The patient was brought to the operating room and placed on the operating room table in supine position. Monitored anesthesia care was delivered by the anesthesia team. Preoperative injection of 10 mL of 1:1 mixture of 1% lidocaine plain and 1/2% Marcaine plain were injected to the right foot. The right foot was prepped and draped in a normal sterile fashion. No tourniquet was used during the procedure. The previous incision was opened using Hemostats and inspected. No purulence or necrotic tissue were noted. Site was irrigated with normal saline using bulb syringe. Following this, antibiotic beads impregnated with 500 grams vancomycin powder were placed surrounding the third metatarsal bone. Following this, the incision was closed using #3-0 Nylon. Sterile dressings were applied. Patient was brought to postanesthesia care unit with vital signs stable, neurovascular status intact. She will be readmitted to the floor. She will followup in office after discharge.
[2018-09-13] MEDS: HumaLOG INSULIN (NovoLOG) PER UNIT SC SCH ×4 (08:26→20:55)
[2018-09-13] MEDS: FERROUS SULFATE 325MG TAB PO SCH (08:27)
[2018-09-13] MEDS: GABAPENTIN 400 MG CAP PO SCH ×3 (08:27→20:54)
[2018-09-13] MEDS: ASPIRIN 81 MG ENTERIC TAB PO SCH (08:27)
[2018-09-13] MEDS: DULoxetine 30 MG CAP (CYMBALTA) PO SCH (08:27)
[2018-09-13] MEDS: ROSUVASTATIN 10 MG TAB (CRESTOR) PO SCH (08:28)
[2018-09-13 10:00] VITALS: BP 124/58
--- NOTE | 2018-09-13 11:57 | IPNPDOC ---
Date Seen The patient was seen on 09/13/18. Progress Note SUBJECTIVE: Patient was seen and examined this morning. She states that her foot is a little sore. She has no other complaints and is feeling well otherwise. OBJECTIVE PHYSICAL EXAMINATION: VITAL SIGNS: Please see below. GENERAL: Awake, alert, and oriented. She appears in no acute distress. Sitting comfortably in recliner eating breakfast. HEENT: Atraumatic normocephalic. Eyes are non-icteric. Trachea is midline. Patient has missing teeth/poor dentition CARDIOVASCULAR: Normal S1, S2 Regular rate and rhythm. No clicks rubs or murmurs RESPIRATORY: Clear to auscultation bilaterally with good respiratory effort. No wheezes, rhonci or rales. ABDOMINAL: Obese, soft, nondistended, nontender to palpation. No rebound tenderness or guarding. Positive bowel sounds EXTREMITIES: Right middle toe amputation. Currently bandaged. No edema in extremities bilaterally NEUROLOGICAL: No focal neurological deficits PSYCHOLOGICAL: Mood and affect appear appropriate LABORATORY DATA, IMAGING STUDIES, MICROBIOLOGY: Please see below. DVT prophylaxis ordered?: YES ASSESSMENT AND PLAN: Patient is a 68 year old female with a past medical history significant for IDDM, breast cancer requiring bilateral masectomy,. hypertension, hypothyroidism who had a recent right middle toe amputation by Dr. Jimenez as an outpatient due to a right bone infection. The patients toe did not improve after the amputation and she was subsequently sent to the ER where she was found to have osteomyelitis. Patient was scheduled for surgery with Dr. Jimenez. PROBLEMS: 1. Osteomyelitis of the Right foot -Patient was found to have osteomyelitis of the right foot with MRI. Patient had previously had a middle toe amputation by Dr. Jimenez. It appears the infection has progressed. -Patient has had Incision and Drainage of right middle toe. -Cultures have grown Streptococcus anginosus and Staphylococcus coagulase- negative species. The patients cultures from Dr. Reynolds office have grown MRSA and therefore MRSA coverage is continued. -Pathology is demonstrated a portion of metatarsal bone with marked soft tissue necrosis and acute osteomyelitis -Her Vancomycin has been discontinued and she was started on Ceftaroline as she developed ALLA. She does have a penicillin allergy although does not report rash or any allergic symptoms -Patient will require 6 weeks of antibiotics for osteomyelitis. She had a positive MRSA culture at Dr. Reynolds office and will continue with MRSA coverage as stated above. -ARU screen in pending. Patient will need acute rehab as she lives alone. 2. Acute Kidney Injury -Unclear etiology but likely secondary to medications. Patient has been taken off of Vancomycin,. HCTZ and lisinopril are held. Patient received gentle hydration. -Renal function continues to improve 3. Anemia -Patient has a history of possible iron deficiency anemia. She is currently receiving iron sulfate. Her Hb has dropped today and yesterday. She did receive some fluids and her anemia may be dilutional. She denies any bleeding although a nursing home assistant administrator had reported vaginal bleeding to the nurse. -Anemia workup including peripheral smear and iron studies -Type and cross -s/p 2 units PRBCs -Currently stable 4. IDDM -Consistent carbohydrate diet -Sliding Scale coverage 5. Hypertension -Continue Lisinopril and Chlorthalidone 6. Hypothyroidism -Continue Synthroid 7. Hyperlipidemia -Continue Crestor 8. Mood disorder -Cymbalta 9. DVT prophylaxis -Heparin SQ DISPOSITION: Pending acute rehabilitation screen. VS, I&O, 24H, Fishbone Vital Signs/I&O Vital Signs Date Time Temp Pulse Resp B/P (MAP) Pulse Ox O2 Delivery O2 Flow Rate FiO2 09/13/18 10:00 97.4 75 18 124/58 (80) 98 09/12/18 10:36 10 09/07/18 21:01 Room Air I&O- Last 24 Hours up to 6 AM 09/13/18 06:00 Intake Total 2502 ml Output Total 500 ml Balance 2002 ml Laboratory Data 24H LABS Laboratory Tests 2 09/12/18 16:31: Bedside Glucose (Misc Panel) 311H 09/13/18 06:45: Nucleated Red Blood Cells % (auto) 0.0, Anion Gap 6L, Glomerular Filtration Rate 50.5, Blood Urea Nitrogen 22H, Creatinine 1.14, Sodium Level 140, Potassium Level 4.5, Chloride Level 109H, Carbon Dioxide Level 25, Calcium Level 8.5L CBC/BMP Laboratory Tests 09/13/18 06:45 Red Blood Count 4.10, Mean Corpuscular Volume 83.9, Mean Corpuscular Hemoglobin 27.6, Mean Corpuscular Hemoglobin Concent 32.8, Red Cell Distribution Width 13.9, Calcium Level 8.5 L Microbiology Microbiology 09/07/18 Blood Culture - Final, Complete NO GROWTH AFTER 5 DAYS 09/07/18 Blood Culture - Final, Complete NO GROWTH AFTER 5 DAYS 09/08/18 Gram Stain - Final, Complete 09/08/18 Wound Culture - Final, Complete Streptococcus Anginosus Grp Staphylococcus Sp Coag Neg 09/08/18 Anaerobic Culture - Final, Complete GME ATTESTATION GME ATTESTATION My faculty preceptor for this patient encounter was physically present during the encounter and was fully available. All aspects of the patient interview, examination, medical decision making process, and medical care plan development were reviewed and approved by the faculty preceptor. The faculty preceptor is aware and concurs with the plan as stated in the body of this note and will attest to such by his/her cosignature. ATTENDING NOTE I, Lucy Green, have both independently examined this patient as well as reviewed the documentation. I have discussed in detail with the resident the findings and plan of treatment as documented in the residents documentation. I will continue to follow the patient and offer further guidance to the patients care as necessary during this hospital stay. JUAN HOLM DO Sep 13, 2018 11:56 LUCY GREEN MD Sep 13, 2018 18:46
[2018-09-13] MEDS: NS 1,000 ML IV SCH (12:00)
[2018-09-13 14:00] VITALS: BP 174/75
--- NOTE | 2018-09-13 16:59 | IPN ---
DATE OF SERVICE: 09/13/2018 The patient is seen and examined. Denies any complaints. States pain is well controlled by her medication. Vitals were reviewed. She has remained afebrile. Laboratories were reviewed. White blood cell count is 10.5, hemoglobin 7.3. Skin examination shows dressings intact. Good capillary refill to the fourth toe. ASSESSMENT: 60-year-old female status post third toe amputation and third metatarsal head resection with osteomyelitis. PLAN: We will plan 6 weeks of antibiotics due to residual infection. Dressing change tomorrow. She is okay to be discharged to rehabilitation. She can ambulate with a surgical shoe and walker. RAMESH
[2018-09-13 18:00] VITALS: BP 165/79
[2018-09-13 22:00] VITALS: BP 176/79
[2018-09-14 02:00] VITALS: BP 178/89
[2018-09-14] MEDS: NS 1,000 ML IV SCH (03:50)
[2018-09-14] MEDS: HEPARIN SOD (PORCINE) 5000 UNITS/ML VIAL SQ SCH ×3 (05:11→21:07)
[2018-09-14] MEDS: LEVOTHYROXINE 137MCG TABLET (0.137MG) PO SCH (05:11)
[2018-09-14 06:00] VITALS: BP 169/77
[2018-09-14] MEDS: CEFTAROLINE FOSAMIL 300 MG in D5W 50 ML IV SCH ×2 (06:05→18:18)
[2018-09-14 06:27] LABS: HEMATOCRIT 31.8 % (36.0-47.0); HEMOGLOBIN 10.6 g/dl (12.0-15.5); MEAN CORPUSCULAR HEMOGLOBIN 27.8 pg (27.0-33.0); MEAN CORPUSCULAR HGB CONC 33.3 g/dl (32.0-36.5); MEAN CORPUSCULAR VOLUME 83.5 fl (80.0-96.0); PLATELET COUNT, AUTOMATED 176 10^3/uL (150-450); RED BLOOD COUNT 3.81 10^6/uL (4.00-5.40); WHITE BLOOD COUNT 10.4 10^3/uL (4.0-10.0)
[2018-09-14 06:58] LABS: BLOOD UREA NITROGEN 17 MG/DL (7-18); CALCIUM LEVEL 8.7 MG/DL (8.8-10.2); CARBON DIOXIDE LEVEL 22 MEQ/L (21-32); CHLORIDE LEVEL 107 MEQ/L (98-107); CREATININE FOR GFR 0.94 MG/DL (0.55-1.30); GLOMERULAR FILTRATION RATE > 60.0 (>45); GLUCOSE, FASTING 268 MG/DL (70-100); POTASSIUM SERUM 5.2 MEQ/L (3.5-5.1); SODIUM LEVEL 137 MEQ/L (136-145)
[2018-09-14 08:00] LABS: C REACTIVE PROTEIN QUANTITATIV 4.58 MG/DL (0.00-0.30)
[2018-09-14] MEDS: AZTREONAM 1 GM in D5W MINI-BAG PLUS 50 ML IV SCH (08:08)
[2018-09-14] MEDS: FERROUS SULFATE 325MG TAB PO SCH (08:09)
[2018-09-14] MEDS: HumaLOG INSULIN (NovoLOG) PER UNIT SC SCH ×4 (08:09→21:06)
[2018-09-14] MEDS: DULoxetine 30 MG CAP (CYMBALTA) PO SCH (08:09)
[2018-09-14] MEDS: ASPIRIN 81 MG ENTERIC TAB PO SCH (08:09)
[2018-09-14] MEDS: GABAPENTIN 400 MG CAP PO SCH ×3 (08:09→21:07)
[2018-09-14] MEDS: ROSUVASTATIN 10 MG TAB (CRESTOR) PO SCH (08:09)
[2018-09-14 08:13] LABS: C REACTIVE PROTEIN QUANTITATIV 6.41 MG/DL (0.00-0.30)
[2018-09-14] MEDS: PERCOCET 5MG/325MG TAB PO PRN ×2 (08:17→15:51)
[2018-09-14] MEDS ORDERED: PATIROMER SORBITEX CALCIUM 8.4 GM POWDER PACKET (VELTASSA) PO ONE (09:45)
[2018-09-14 10:00] VITALS: BP 163/74
--- NOTE | 2018-09-14 11:37 | IPNPDOC ---
Date Seen The patient was seen on 09/14/18. Progress Note SUBJECTIVE: Patient was seen and examined this morning. She currently states that her pain in her foot is improving although it is still painful. She is continued on her antibiotics and has no other complaints. She will need rehab as PT and OT have stated she is not safe for home discharge. She may likely go to subacute rehab pending insertion of a PICC line as she will need 6 weeks of antibiotic therapy. OBJECTIVE PHYSICAL EXAMINATION: VITAL SIGNS: Please see below. GENERAL: Awake, alert, and oriented. She appears in no acute distress. Sitting comfortably in recliner eating breakfast. HEENT: Atraumatic normocephalic. Eyes are non-icteric. Trachea is midline. Patient has missing teeth/poor dentition CARDIOVASCULAR: Normal S1, S2 Regular rate and rhythm. No clicks rubs or murmurs RESPIRATORY: Clear to auscultation bilaterally with good respiratory effort. No wheezes, rhonci or rales. ABDOMINAL: Obese, soft, nondistended, nontender to palpation. No rebound tenderness or guarding. Positive bowel sounds EXTREMITIES: Right middle toe amputation. Currently bandaged. No edema in extremities bilaterally NEUROLOGICAL: No focal neurological deficits PSYCHOLOGICAL: Mood and affect appear appropriate LABORATORY DATA, IMAGING STUDIES, MICROBIOLOGY: Please see below. DVT prophylaxis ordered?: YES ASSESSMENT AND PLAN: Patient is a 68 year old female with a past medical history significant for IDDM, breast cancer requiring bilateral masectomy,. hypertension, hypothyroidism who had a recent right middle toe amputation by Dr. Jimenez as an outpatient due to a right bone infection. The patients toe did not improve after the amputation and she was subsequently sent to the ER where she was found to have osteomyelitis. Patient was scheduled for surgery with Dr. Jimenez. PROBLEMS: 1. Osteomyelitis of the Right foot -Patient was found to have osteomyelitis of the right foot with MRI. Patient had previously had a middle toe amputation by Dr. Jimenez. It appears the infection has progressed. -Patient has had Incision and Drainage of right middle toe. -Cultures have grown Streptococcus anginosus and Staphylococcus coagulase- negative species. The patients cultures from Dr. Reynolds office have grown MRSA and therefore MRSA coverage is continued. -Pathology is demonstrated a portion of metatarsal bone with marked soft tissue necrosis and acute osteomyelitis -Her Vancomycin has been discontinued and she was started on Ceftaroline as she developed ALLA. She does have a penicillin allergy although does not report rash or any allergic symptoms -Patient will require 6 weeks of antibiotics for osteomyelitis. She had a positive MRSA culture at Dr. Reynolds office and will continue with MRSA coverage as stated above. -She is planned to receive a PICC line and possible outpatient subacute rehab. Her Aztreonam will be discontinued. She will just receive Ceftaroline. She will need at least 6 weeks of antibiotic coverage for osteomyelitis. -Continue with PT and OT 2. Acute Kidney Injury -Unclear etiology but likely secondary to medications. Patient has been taken off of Vancomycin,. HCTZ and lisinopril are held. Patient received gentle hydration. -Renal function continues to improve 3. Anemia -Patient has a history of possible iron deficiency anemia. She is currently receiving iron sulfate. Her Hb has dropped today and yesterday. She did receive some fluids and her anemia may be dilutional. She denies any bleeding although a director school of nursing had reported vaginal bleeding to the nurse. -Anemia workup including peripheral smear and iron studies -Type and cross -s/p 2 units PRBCs -Currently stable 4. IDDM -Consistent carbohydrate diet -Sliding Scale coverage 5. Hypertension -Continue Lisinopril and Chlorthalidone 6. Hypothyroidism -Continue Synthroid 7. Hyperlipidemia -Continue Crestor 8. Mood disorder -Cymbalta 9. DVT prophylaxis -Heparin SQ VS, I&O, 24H, Fishbone Vital Signs/I&O Vital Signs Date Time Temp Pulse Resp B/P (MAP) Pulse Ox O2 Delivery O2 Flow Rate FiO2 09/14/18 10:00 97.5 81 18 163/74 (103) 96 09/12/18 10:36 10 I&O- Last 24 Hours up to 6 AM 09/14/18 06:00 Intake Total 3335 ml Output Total 0 ml Balance 3335 ml Laboratory Data 24H LABS Laboratory Tests 2 09/13/18 16:41: Bedside Glucose (Misc Panel) 307H 09/13/18 20:45: Bedside Glucose (Misc Panel) 350H 09/14/18 06:06: Anion Gap 8, Glomerular Filtration Rate > 60.0, Blood Urea Nitrogen 17, Creatinine 0.94, Sodium Level 137, Potassium Level 5.2H, Chloride Level 107, Carbon Dioxide Level 22, Calcium Level 8.7L, C-Reactive Protein, Quantitative 6.41H 09/14/18 06:11: Nucleated Red Blood Cells % (auto) 0.0 CBC/BMP Laboratory Tests 09/14/18 06:06 Calcium Level 8.7 L 09/14/18 06:11 Red Blood Count 3.81 L, Mean Corpuscular Volume 83.5, Mean Corpuscular Hemoglobin 27.8, Mean Corpuscular Hemoglobin Concent 33.3, Red Cell Distribution Width 13.7 09/14/18 10:10 Microbiology Microbiology 09/07/18 Blood Culture - Final, Complete NO GROWTH AFTER 5 DAYS 09/07/18 Blood Culture - Final, Complete NO GROWTH AFTER 5 DAYS 09/08/18 Gram Stain - Final, Complete 09/08/18 Wound Culture - Final, Complete Streptococcus Anginosus Grp Staphylococcus Sp Coag Neg 09/08/18 Anaerobic Culture - Final, Complete GME ATTESTATION GME ATTESTATION My faculty preceptor for this patient encounter was physically present during the encounter and was fully available. All aspects of the patient interview, examination, medical decision making process, and medical care plan development were reviewed and approved by the faculty preceptor. The faculty preceptor is aware and concurs with the plan as stated in the body of this note and will attest to such by his/her cosignature. ATTENDING NOTE I, Lucy Green, have both independently examined this patient as well as reviewed the documentation. I have discussed in detail with the resident the findings and plan of treatment as documented in the residents documentation. I will continue to follow the patient and offer further guidance to the patients care as necessary during this hospital stay. JUAN HOLM DO Sep 14, 2018 11:37 LUCY GREEN MD Sep 14, 2018 18:51
[2018-09-14] MEDS ORDERED: LIDOCAINE 1% MDV 20ML VIAL As Ordered ONE (13:01)
[2018-09-14 14:00] VITALS: BP 132/84
[2018-09-14] MEDS ORDERED: SODIUM CHLORIDE 0.9% INJ 10 ML SYR IV PRN (14:15)
--- NOTE | 2018-09-14 16:24 | REP ---
Procedure: PICC line insertion with Fawn The procedure was performed under the direct supervision of Dr. Rodriguez. The risks and benefits of the procedure were explained to the patient and informed consent was obtained. The right basilic vein was localized using ultrasound guidance. The skin was prepped and draped in a sterile fashion. 2% lidocaine was used as a local anesthetic. Using ultrasound guidance the basilic vein was cannulated and a 0.018 guidewire was inserted and advanced to the SVC using fluoroscopic guidance. The needle was removed and a 4.5 Cuban dilator and peel-away sheath was inserted over the guide wire. A 4.5 Cuban single lumen catheter was cut to length of 39 cm. The dilator was removed and the catheter was inserted over the guide wire with the tip ending in the SVC. The peel-away sheath was removed and the catheter was flushed with heparinized saline as per Hospital protocol. The catheter was affixed to the skin and a sterile dressing was applied. The patient tolerated the procedure well and there were no immediate complications. 0.1 minutes of fluoro time was utilized for this procedure. Reviewed by HALEY Oneil 09/14/2018 03:49 P Electronically Signed by Mayco Rodrgiuez MD 09/14/2018 04:15 P
[2018-09-14] MEDS: SODIUM CHLORIDE 0.9% INJ 10 ML SYR IV SCH (17:04)
[2018-09-14 18:00] VITALS: BP 129/64
[2018-09-14 22:00] VITALS: BP 153/71
[2018-09-15 06:00] VITALS: BP 129/60
[2018-09-15] MEDS: SODIUM CHLORIDE 0.9% INJ 10 ML SYR IV SCH ×2 (06:00→18:37)
[2018-09-15] MEDS: CEFTAROLINE FOSAMIL 300 MG in D5W 50 ML IV SCH ×2 (06:30→18:37)
[2018-09-15] MEDS: HEPARIN SOD (PORCINE) 5000 UNITS/ML VIAL SQ SCH ×3 (06:31→21:25)
[2018-09-15] MEDS: LEVOTHYROXINE 137MCG TABLET (0.137MG) PO SCH (06:31)
[2018-09-15 06:57] LABS: HEMATOCRIT 30.8 % (36.0-47.0); HEMOGLOBIN 10.2 g/dl (12.0-15.5); MEAN CORPUSCULAR HEMOGLOBIN 27.3 pg (27.0-33.0); MEAN CORPUSCULAR HGB CONC 33.1 g/dl (32.0-36.5); MEAN CORPUSCULAR VOLUME 82.6 fl (80.0-96.0); PLATELET COUNT, AUTOMATED 168 10^3/uL (150-450); RED BLOOD COUNT 3.73 10^6/uL (4.00-5.40); WHITE BLOOD COUNT 8.2 10^3/uL (4.0-10.0)
[2018-09-15 07:16] LABS: BLOOD UREA NITROGEN 17 MG/DL (7-18); C REACTIVE PROTEIN QUANTITATIV 5.69 MG/DL (0.00-0.30); CALCIUM LEVEL 8.5 MG/DL (8.8-10.2); CARBON DIOXIDE LEVEL 27 MEQ/L (21-32); CHLORIDE LEVEL 105 MEQ/L (98-107); CREATININE FOR GFR 0.95 MG/DL (0.55-1.30); GLOMERULAR FILTRATION RATE > 60.0 (>45); GLUCOSE, FASTING 282 MG/DL (70-100); SODIUM LEVEL 139 MEQ/L (136-145)
[2018-09-15] MEDS: HumaLOG INSULIN (NovoLOG) PER UNIT SC SCH ×4 (07:50→20:31)
[2018-09-15] MEDS: PERCOCET 5MG/325MG TAB PO PRN ×2 (07:58→20:31)
[2018-09-15] MEDS: ASPIRIN 81 MG ENTERIC TAB PO SCH (08:00)
[2018-09-15] MEDS: FERROUS SULFATE 325MG TAB PO SCH (08:00)
[2018-09-15] MEDS: DULoxetine 30 MG CAP (CYMBALTA) PO SCH (08:00)
[2018-09-15] MEDS: ROSUVASTATIN 10 MG TAB (CRESTOR) PO SCH (08:00)
[2018-09-15] MEDS: GABAPENTIN 400 MG CAP PO SCH ×3 (08:00→20:30)
[2018-09-15 10:00] VITALS: BP 136/70
--- NOTE | 2018-09-15 12:04 | IPNPDOC ---
Date Seen The patient was seen on 09/15/18. Progress Note SUBJECTIVE: Patient was seen and examined this morning. She currently has no complaints. She had her PICC line inserted. She is currently awaiting placement into subacute rehab. Her dressings were changed yesterday. She states that the pain in her foot is manageable and her pain is well controlled. OBJECTIVE PHYSICAL EXAMINATION: VITAL SIGNS: Please see below. GENERAL: Awake, alert, and oriented. She appears in no acute distress. She is lying in bed comfortably. HEENT: Atraumatic normocephalic. Eyes are non-icteric. Trachea is midline. Patient has missing teeth/poor dentition CARDIOVASCULAR: Normal S1, S2 Regular rate and rhythm. No clicks rubs or murmurs RESPIRATORY: Clear to auscultation bilaterally with good respiratory effort. No wheezes, rhonci or rales. ABDOMINAL: Obese, soft, nondistended, nontender to palpation. No rebound tenderness or guarding. Positive bowel sounds EXTREMITIES: Right middle toe amputation. Currently bandaged. No edema in extremities bilaterally NEUROLOGICAL: No focal neurological deficits PSYCHOLOGICAL: Somewhat flat affect. Mood is appropriate LABORATORY DATA, IMAGING STUDIES, MICROBIOLOGY: Please see below. DVT prophylaxis ordered?: [Yes] ASSESSMENT AND PLAN: Patient is a 68 year old female with a past medical history significant for IDDM, breast cancer requiring bilateral masectomy,. hypertension, hypothyroidism who had a recent right middle toe amputation by Dr. Jimenez as an outpatient due to a right bone infection. The patients toe did not improve after the amputation and she was subsequently sent to the ER where she was found to have osteomyelitis. Patient was scheduled for surgery with Dr. Jimenez. PROBLEMS: 1. Osteomyelitis of the Right foot -Patient was found to have osteomyelitis of the right foot with MRI. Patient had previously had a middle toe amputation by Dr. Jimenez. It appears the infection has progressed. -Patient has had Incision and Drainage of right middle toe. -Cultures have grown Streptococcus anginosus and Staphylococcus coagulase- negative species. The patients cultures from Dr. Reynolds office have grown MRSA and therefore MRSA coverage is continued. -Pathology is demonstrated a portion of metatarsal bone with marked soft tissue necrosis and acute osteomyelitis -Her Vancomycin has been discontinued and she was started on Ceftaroline as she developed ALLA. She does have a penicillin allergy although does not report rash or any allergic symptoms -Patient will require 6 weeks of antibiotics for osteomyelitis. She had a positive MRSA culture at Dr. Reynolds office and will continue with MRSA coverage as stated above. -She has had PICC line inserted and is currently on Ceftaroline. She will need at least 6 weeks of antibiotic coverage for osteomyelitis. -Continue with PT and OT. Awaiting Subacute rehab placement. 2. Acute Kidney Injury -Unclear etiology but likely secondary to medications. Patient has been taken off of Vancomycin,. HCTZ and lisinopril are held. Patient received gentle hydration. -Renal function continues to improve 3. Anemia -Patient has a history of possible iron deficiency anemia. She is currently receiving iron sulfate. Her Hb has dropped today and yesterday. She did receive some fluids and her anemia may be dilutional. She denies any bleeding although a nursing clinical director had reported vaginal bleeding to the nurse. -Anemia workup including peripheral smear and iron studies -Type and cross -s/p 2 units PRBCs -Currently stable 4. IDDM -Consistent carbohydrate diet -Sliding Scale coverage 5. Hypertension -Continue Lisinopril and Chlorthalidone 6. Hypothyroidism -Continue Synthroid 7. Hyperlipidemia -Continue Crestor 8. Mood disorder -Cymbalta 9. DVT prophylaxis -Heparin SQ VS, I&O, 24H, Fishbone Vital Signs/I&O Vital Signs Date Time Temp Pulse Resp B/P (MAP) Pulse Ox O2 Delivery O2 Flow Rate FiO2 09/15/18 10:00 98.3 80 20 136/70 (92) 97 09/12/18 10:36 10 I&O- Last 24 Hours up to 6 AM 09/15/18 06:00 Intake Total 790 ml Output Total 600 ml Balance 190 ml Laboratory Data 24H LABS Laboratory Tests 2 09/14/18 20:25: Bedside Glucose (Misc Panel) 293H 09/15/18 06:37: Nucleated Red Blood Cells % (auto) 0.0, Anion Gap 7L, Glomerular Filtration Rate > 60.0, Blood Urea Nitrogen 17, Creatinine 0.95, Sodium Level 139, Potassium Level 4.0, Chloride Level 105, Carbon Dioxide Level 27, Calcium Level 8.5L, C- Reactive Protein, Quantitative 5.69H CBC/BMP Laboratory Tests 09/15/18 06:37 Red Blood Count 3.73 L, Mean Corpuscular Volume 82.6, Mean Corpuscular Hemoglobin 27.3, Mean Corpuscular Hemoglobin Concent 33.1, Red Cell Distribution Width 14.0, Calcium Level 8.5 L Microbiology Microbiology 09/07/18 Blood Culture - Final, Complete NO GROWTH AFTER 5 DAYS 09/07/18 Blood Culture - Final, Complete NO GROWTH AFTER 5 DAYS 09/08/18 Gram Stain - Final, Complete 09/08/18 Wound Culture - Final, Complete Streptococcus Anginosus Grp Staphylococcus Sp Coag Neg 09/08/18 Anaerobic Culture - Final, Complete GME ATTESTATION GME ATTESTATION My faculty preceptor for this patient encounter was physically present during the encounter and was fully available. All aspects of the patient interview, examination, medical decision making process, and medical care plan development were reviewed and approved by the faculty preceptor. The faculty preceptor is aware and concurs with the plan as stated in the body of this note and will attest to such by his/her cosignature. ATTENDING NOTE I, Lucy Green, have both independently examined this patient as well as reviewed the documentation. I have discussed in detail with the resident the findings and plan of treatment as documented in the residents documentation. I will continue to follow the patient and offer further guidance to the patients care as necessary during this hospital stay. JUAN HOLM DO Sep 15, 2018 12:04 LUCY GREEN MD Sep 16, 2018 17:14
[2018-09-15 14:00] VITALS: BP 125/65
--- NOTE | 2018-09-15 15:32 | IPN ---
DATE: 09/15/2018 Patient is seen and examined at bedside. Denies overnight complaints. Vital signs are reviewed, she has been afebrile. Labs are reviewed, white blood cell count is 8.2, CRP is 5.69. LOWER EXTREMITY EXAMINATION: Erythema and edema are improving. One antibiotic bead was noted to be protruding through the incision, this was removed. ASSESSMENT: This is a 68-year-old female with osteomyelitis status post metatarsal head resection and incision and drainage. TREATMENT: Continue antibiotics times 6 weeks with methicillin-resistant Staphylococcus aureus (MRSA) coverage. Patient okay to be discharged to acute rehabilitation. Continue daily dressing changes.
[2018-09-15 18:00] VITALS: BP 133/85
[2018-09-15 22:00] VITALS: BP 143/85
[2018-09-16 06:00] VITALS: BP 128/58
[2018-09-16] MEDS: SODIUM CHLORIDE 0.9% INJ 10 ML SYR IV SCH ×2 (06:00→18:04)
[2018-09-16] MEDS: HEPARIN SOD (PORCINE) 5000 UNITS/ML VIAL SQ SCH ×3 (06:04→21:31)
[2018-09-16] MEDS: LEVOTHYROXINE 137MCG TABLET (0.137MG) PO SCH (06:04)
[2018-09-16] MEDS: CEFTAROLINE FOSAMIL 300 MG in D5W 50 ML IV SCH ×2 (06:05→18:05)
[2018-09-16 06:24] LABS: HEMOGLOBIN 10.3 g/dl (12.0-15.5); MEAN CORPUSCULAR HEMOGLOBIN 27.7 pg (27.0-33.0); MEAN CORPUSCULAR HGB CONC 33.2 g/dl (32.0-36.5); MEAN CORPUSCULAR VOLUME 83.3 fl (80.0-96.0); PLATELET COUNT, AUTOMATED 177 10^3/uL (150-450); RED BLOOD COUNT 3.72 10^6/uL (4.00-5.40); WHITE BLOOD COUNT 8.1 10^3/uL (4.0-10.0)
[2018-09-16 06:53] LABS: CALCIUM LEVEL 8.7 MG/DL (8.8-10.2); CREATININE FOR GFR 1.05 MG/DL (0.55-1.30); GLOMERULAR FILTRATION RATE 55.5 (>45); POTASSIUM SERUM 3.9 MEQ/L (3.5-5.1)
[2018-09-16] MEDS: DULoxetine 30 MG CAP (CYMBALTA) PO SCH (08:12)
[2018-09-16] MEDS: HumaLOG INSULIN (NovoLOG) PER UNIT SC SCH ×4 (08:12→20:44)
[2018-09-16] MEDS: GABAPENTIN 400 MG CAP PO SCH ×3 (08:12→20:44)
[2018-09-16] MEDS: FERROUS SULFATE 325MG TAB PO SCH (08:13)
[2018-09-16] MEDS: ROSUVASTATIN 10 MG TAB (CRESTOR) PO SCH (08:13)
[2018-09-16] MEDS: ASPIRIN 81 MG ENTERIC TAB PO SCH (08:13)
--- NOTE | 2018-09-16 09:02 | IPNPDOC ---
Date Seen The patient was seen on 09/16/18. Progress Note SUBJECTIVE: Patient was seen and examined this morning. She continues to have no complaints. She does continue to have a flat affect. She does have a PICC line inserted on 09/14/18. She denies any difficulty or pain. She states that her foot pain has improved and is under good control. OBJECTIVE PHYSICAL EXAMINATION: VITAL SIGNS: Please see below. GENERAL: Awake, alert, and oriented. She appears in no acute distress. She is lying in bed comfortably. HEENT: Atraumatic normocephalic. Eyes are non-icteric. Trachea is midline. Patient has missing teeth/poor dentition CARDIOVASCULAR: Normal S1, S2 Regular rate and rhythm. No clicks rubs or murmurs RESPIRATORY: Clear to auscultation bilaterally with good respiratory effort. Slight bibasilar crackles. No wheezes, rhonci, or rales ABDOMINAL: Obese, soft, nondistended, nontender to palpation. No rebound tenderness or guarding. Positive bowel sounds EXTREMITIES: Right middle toe amputation. Currently bandaged. No edema in extremities bilaterally NEUROLOGICAL: No focal neurological deficits PSYCHOLOGICAL: Somewhat flat affect. Mood is appropriate LABORATORY DATA, IMAGING STUDIES, MICROBIOLOGY: Please see below. DVT prophylaxis ordered?: YES ASSESSMENT AND PLAN: Patient is a 68 year old female with a past medical history significant for IDDM, breast cancer requiring bilateral masectomy,. hypertension, hypothyroidism who had a recent right middle toe amputation by Dr. Jimenez as an outpatient due to a right bone infection. The patients toe did not improve after the amputation and she was subsequently sent to the ER where she was found to have osteomyelitis. Patient was scheduled for surgery with Dr. Jimenez. PROBLEMS: 1. Osteomyelitis of the Right foot -Patient was found to have osteomyelitis of the right foot with MRI. Patient had previously had a middle toe amputation by Dr. Jimenez. It appears the infection has progressed. -Patient has had Incision and Drainage of right middle toe. -Cultures have grown Streptococcus anginosus and Staphylococcus coagulase- negative species. The patients cultures from Dr. Reynolds office have grown MRSA and therefore MRSA coverage is continued. -Pathology is demonstrated a portion of metatarsal bone with marked soft tissue necrosis and acute osteomyelitis -Her Vancomycin has been discontinued and she was started on Ceftaroline as she developed ALLA. She does have a penicillin allergy although does not report rash or any allergic symptoms -Patient will require 6 weeks of antibiotics for osteomyelitis. She had a positive MRSA culture at Dr. Reynolds office and will continue with MRSA coverage as stated above. -She has had PICC line inserted and is currently on Ceftaroline. She will need at least 6 weeks of antibiotic coverage for osteomyelitis. -Continue with PT and OT. Awaiting Subacute rehab placement. -Pain is well controlled. 2. Acute Kidney Injury -Unclear etiology but likely secondary to medications. Patient has been taken off of Vancomycin,. HCTZ and lisinopril are held. Patient received gentle hydration. -Resolved 3. Anemia -Patient has a history of possible iron deficiency anemia. She is currently receiving iron sulfate. Patient did have a drop in Hg, but also did receive some fluids and her anemia may be dilutional. -Currently there does not appear to be any bleeding -Anemia workup including peripheral smear and iron studies -Type and cross -s/p 2 units PRBCs -Currently stable 4. IDDM -Consistent carbohydrate diet -Sliding Scale coverage 5. Hypertension -Continue Lisinopril and Chlorthalidone 6. Hypothyroidism -Continue Synthroid 7. Hyperlipidemia -Continue Crestor 8. Mood disorder -Cymbalta 9. DVT prophylaxis -Heparin SQ DISPOSITION: Patient is awaiting PT clearance and placement into subacute rehab. VS, I&O, 24H, Fishbone Vital Signs/I&O Vital Signs Date Time Temp Pulse Resp B/P (MAP) Pulse Ox O2 Delivery O2 Flow Rate FiO2 09/16/18 06:00 97.6 75 16 128/58 (81) 97 09/12/18 10:36 10 I&O- Last 24 Hours up to 6 AM 09/16/18 06:00 Intake Total 1460 ml Output Total 1300 ml Balance 160 ml Laboratory Data 24H LABS Laboratory Tests 2 09/16/18 06:02: Nucleated Red Blood Cells % (auto) 0.0, Anion Gap 8, Glomerular Filtration Rate 55.5, Blood Urea Nitrogen 21H, Creatinine 1.05, Sodium Level 138, Potassium Level 3.9, Chloride Level 104, Carbon Dioxide Level 26, Calcium Level 8.7L, C- Reactive Protein, Quantitative 4.77H CBC/BMP Laboratory Tests 09/16/18 06:02 Red Blood Count 3.72 L, Mean Corpuscular Volume 83.3, Mean Corpuscular Hemoglobin 27.7, Mean Corpuscular Hemoglobin Concent 33.2, Red Cell Distribution Width 13.8, Calcium Level 8.7 L Microbiology Microbiology 09/07/18 Blood Culture - Final, Complete NO GROWTH AFTER 5 DAYS 09/07/18 Blood Culture - Final, Complete NO GROWTH AFTER 5 DAYS 09/08/18 Gram Stain - Final, Complete 09/08/18 Wound Culture - Final, Complete Streptococcus Anginosus Grp Staphylococcus Sp Coag Neg 09/08/18 Anaerobic Culture - Final, Complete GME ATTESTATION GME ATTESTATION My faculty preceptor for this patient encounter was physically present during the encounter and was fully available. All aspects of the patient interview, examination, medical decision making process, and medical care plan development were reviewed and approved by the faculty preceptor. The faculty preceptor is aware and concurs with the plan as stated in the body of this note and will attest to such by his/her cosignature. ATTENDING NOTE I, Lucy Green, have both independently examined this patient as well as reviewed the documentation. I have discussed in detail with the resident the findings and plan of treatment as documented in the residents documentation. I will continue to follow the patient and offer further guidance to the patients care as necessary during this hospital stay. JUAN HOLM DO Sep 16, 2018 09:02 LUCY GREEN MD Sep 16, 2018 17:16
[2018-09-16 10:00] VITALS: BP 144/83
[2018-09-16 14:00] VITALS: BP 143/84
[2018-09-16 18:00] VITALS: BP 114/88
[2018-09-16 22:00] VITALS: BP 132/76
[2018-09-17 06:00] VITALS: BP_SYST 129; BP_SYST 138; BP_DIAS 41; BP_DIAS 92
[2018-09-17] MEDS: LEVOTHYROXINE 137MCG TABLET (0.137MG) PO SCH (06:03)
[2018-09-17] MEDS: HEPARIN SOD (PORCINE) 5000 UNITS/ML VIAL SQ SCH ×3 (06:03→21:34)
[2018-09-17] MEDS: CEFTAROLINE FOSAMIL 300 MG in D5W 50 ML IV SCH ×2 (06:04→18:09)
[2018-09-17] MEDS: SODIUM CHLORIDE 0.9% INJ 10 ML SYR IV SCH ×2 (06:04→18:09)
[2018-09-17 06:22] LABS: HEMATOCRIT 29.9 % (36.0-47.0); HEMOGLOBIN 9.9 g/dl (12.0-15.5); MEAN CORPUSCULAR HEMOGLOBIN 27.3 pg (27.0-33.0); MEAN CORPUSCULAR HGB CONC 33.1 g/dl (32.0-36.5); MEAN CORPUSCULAR VOLUME 82.6 fl (80.0-96.0); PLATELET COUNT, AUTOMATED 182 10^3/uL (150-450); RED BLOOD COUNT 3.62 10^6/uL (4.00-5.40); WHITE BLOOD COUNT 7.7 10^3/uL (4.0-10.0)
[2018-09-17 06:45] LABS: C REACTIVE PROTEIN QUANTITATIV 3.09 MG/DL (0.00-0.30); CALCIUM LEVEL 8.1 MG/DL (8.8-10.2); CREATININE FOR GFR 1.03 MG/DL (0.55-1.30); GLOMERULAR FILTRATION RATE 56.7 (>45); POTASSIUM SERUM 4.1 MEQ/L (3.5-5.1)
[2018-09-17] MEDS: ROSUVASTATIN 10 MG TAB (CRESTOR) PO SCH (08:38)
[2018-09-17] MEDS: ASPIRIN 81 MG ENTERIC TAB PO SCH (08:38)
[2018-09-17] MEDS: FERROUS SULFATE 325MG TAB PO SCH (08:38)
[2018-09-17] MEDS: GABAPENTIN 400 MG CAP PO SCH ×3 (08:38→20:51)
[2018-09-17] MEDS: HumaLOG INSULIN (NovoLOG) PER UNIT SC SCH ×4 (08:40→20:51)
[2018-09-17] MEDS: DULoxetine 30 MG CAP (CYMBALTA) PO SCH (09:07)
--- NOTE | 2018-09-17 10:38 | IPNPDOC ---
Text Note Date of Service The patient was seen on 09/17/18. NOTE Subjective: Patient is a 68-year-old female with a PMHx of HTN, IDDM2, Hypothyroidism, Breast CA s/p bilateral mastectomy, who presented to the ER from [facility] in right foot infection after recent middle toe amputation 2 weeks prior. At home. Patient had experienced some low-grade fevers and chills. She was admitted to the hospitalist service for further evaluation and treatment. Dr. Jimenez was called on consultation. Patient was seen and examined at the bedside. Currently patient denies any new complaints. Denies any nausea, vomiting, abdominal pain, constipation, diarrhea or discomfort with urination. Objective: Vitals (See below) General: Lying in bed, no acute distress, comfortable, AAOx3 HEENT: NC, AT CVS: RRR, +S1S2 Lungs: Fair air entry b/l, -w/r/r Abdomen: Soft, ND, NT Extremities: - Edema, - Calf tenderness, right foot in dressing Assessment and plan: Osteomyelitis of R foot - Patient has had a recent history of osteomyelitis and amputation; has been on Linezolid as an outpatient chlo - Wound culture 09/08: Strep Anginosus, Staph (Coag negative) - Cultures from Dr. Jimenez's Office on 08/31: MRSA / Strep Gordonii - MRI foot 09/07: 1. Postoperative changes associated with disarticulation at the third metatarsophalangeal joint with prominent soft tissue swelling and phlegmonous change at the operative site, as described above. 2. Acute osteomyelitis of the third metatarsal. 3. Probable reactive bone marrow edema in the second and fourth metatarsal heads, as well as the base of the fourth proximal phalanx. 4. Additional findings, as above. - OR on 09/08/[address] Jimenez: Right foot incision and drainage with 3rd metatarsal head excision. - OR on 09/12/[address] Jimenez: Right foot incision and drainage, wound closure with implantation of antibiotic beads. - s/p PICC line; c/w Ceftaroline; discussed with Dr. Jimenez will require 4-6 weeks of IV antibiotics - Dr. Jimenez will manage antibiotics as an outpatient - c/w PT; likely subacute rehab placement s/p ALLA - Has improved with IV fluid hydration Anemia - possibly 2/2 AOCD - Slight drop in Hg may be attributed to dilutional etiology - s/p 2 units PRBC - Has remained stable - c/w Ferrous sulfate HTN - BP well controlled - c/w Chlorthalidone - Lisinopril on hold DLP - c/w Rosuvastatin IDDM2 - c/w ISS Hypothyroidism - c/w Levothyroxine Breast CA s/p bilateral mastectomy - Will have outpatient f/u with oncology Mood disorder - c/w Duloxetine DVT prophylaxis - c/w Heparin Disposition: - Patient is awaiting PT clearance and placement into subacute rehab. VS,Fishbone, I+O VS, Fishbone, I+O Laboratory Tests 09/17/18 06:10 Red Blood Count 3.62 L, Mean Corpuscular Volume 82.6, Mean Corpuscular Hemoglobin 27.3, Mean Corpuscular Hemoglobin Concent 33.1, Red Cell Distribution Width 13.8, Calcium Level 8.1 L Vital Signs Date Time Temp Pulse Resp B/P (MAP) Pulse Ox O2 Delivery O2 Flow Rate FiO2 09/17/18 06:00 96.9 71 17 129/41 (70) 96 09/12/18 10:36 10 I&O- Last 24 Hours up to 6 AM 09/17/18 06:00 Intake Total 480 ml Output Total 400 ml Balance 80 ml NATALIA HAMEED MD Sep 17, 2018 10:38
[2018-09-17] MEDS ORDERED: CHLORTHALIDONE 25 MG TAB PO ONE (11:00)
[2018-09-17 14:00] VITALS: BP 118/45
[2018-09-17 22:00] VITALS: BP 149/84
[2018-09-18 06:00] VITALS: BP 133/53
[2018-09-18] MEDS: CEFTAROLINE FOSAMIL 300 MG in D5W 50 ML IV SCH ×2 (06:17→18:41)
[2018-09-18] MEDS: LEVOTHYROXINE 137MCG TABLET (0.137MG) PO SCH (06:18)
[2018-09-18] MEDS: HEPARIN SOD (PORCINE) 5000 UNITS/ML VIAL SQ SCH ×3 (06:18→21:01)
[2018-09-18] MEDS: SODIUM CHLORIDE 0.9% INJ 10 ML SYR IV SCH ×2 (06:19→18:41)
[2018-09-18 06:27] LABS: HEMATOCRIT 31.4 % (36.0-47.0); HEMOGLOBIN 10.3 g/dl (12.0-15.5); MEAN CORPUSCULAR HEMOGLOBIN 27.2 pg (27.0-33.0); MEAN CORPUSCULAR HGB CONC 32.8 g/dl (32.0-36.5); MEAN CORPUSCULAR VOLUME 82.8 fl (80.0-96.0); PLATELET COUNT, AUTOMATED 191 10^3/uL (150-450); RED BLOOD COUNT 3.79 10^6/uL (4.00-5.40); WHITE BLOOD COUNT 8.2 10^3/uL (4.0-10.0)
[2018-09-18 06:46] LABS: C REACTIVE PROTEIN QUANTITATIV 2.1 MG/DL (0.00-0.30); CALCIUM LEVEL 8.4 MG/DL (8.8-10.2); CREATININE FOR GFR 1.17 MG/DL (0.55-1.30)
[2018-09-18] MEDS: FERROUS SULFATE 325MG TAB PO SCH (08:10)
[2018-09-18] MEDS: ROSUVASTATIN 10 MG TAB (CRESTOR) PO SCH (08:10)
[2018-09-18] MEDS: DULoxetine 30 MG CAP (CYMBALTA) PO SCH (08:10)
[2018-09-18] MEDS: ASPIRIN 81 MG ENTERIC TAB PO SCH (08:10)
[2018-09-18] MEDS: GABAPENTIN 400 MG CAP PO SCH ×3 (08:10→21:00)
[2018-09-18] MEDS: CHLORTHALIDONE 25 MG TAB PO SCH (08:11)
[2018-09-18] MEDS: HumaLOG INSULIN (NovoLOG) PER UNIT SC SCH ×4 (08:11→21:00)
--- NOTE | 2018-09-18 12:18 | IPNPDOC ---
Text Note Date of Service The patient was seen on 09/18/18. NOTE Subjective: Patient is a 68-year-old female with a PMHx of HTN, IDDM2, Hypothyroidism, Breast CA s/p bilateral mastectomy, who presented to the ER from [facility] in right foot infection after recent middle toe amputation 2 weeks prior. At home. Patient had experienced some low-grade fevers and chills. She was admitted to the hospitalist service for further evaluation and treatment. Dr. Jimenez was called on consultation. Patient was seen and examined at the bedside. Patient has no new complaints. He denies nausea, vomiting, abdominal pain, diarrhea or urination. Denies chest pain, shortness of breath or palpitations. Objective: Vitals (See below) General: Lying in bed, no acute distress, comfortable, AAOx3 HEENT: NC, AT CVS: RRR, +S1S2 Lungs: Fair air entry b/l, auscultations without any wheezing, rales or rhonchi Abdomen: Soft, ND, NT Extremities: No evidence of edema, - Calf tenderness, right foot in dressing Assessment and plan: Osteomyelitis of R foot - Patient has had a recent history of osteomyelitis and amputation; has been on Linezolid as an outpatient chlo - Wound culture 09/08: Strep Anginosus, Staph (Coag negative) - Cultures from Dr. Jimenez's Office on 08/31: MRSA / Strep Gordonii - MRI foot 09/07: 1. Postoperative changes associated with disarticulation at the third metatarsophalangeal joint with prominent soft tissue swelling and phlegmonous change at the operative site, as described above. 2. Acute osteomyelitis of the third metatarsal. 3. Probable reactive bone marrow edema in the second and fourth metatarsal heads, as well as the base of the fourth proximal phalanx. 4. Additional findings, as above. - OR on 09/08/[address] Jimenez: Right foot incision and drainage with 3rd metatarsal head excision. - OR on 09/12/[address] Jimenez: Right foot incision and drainage, wound closure with implantation of antibiotic beads. - s/p PICC line; c/w Ceftaroline; discussed with Dr. Jimenez will require 4-6 weeks of IV antibiotics - Dr. Jimenez will manage antibiotics as an outpatient - c/w PT; likely subacute rehab placement for group home antibiotics - PFS looking into subacute rehabilitation placement s/p ALLA - Has improved with IV fluid hydration Anemia - possibly 2/2 AOCD - Slight drop in Hg may be attributed to dilutional etiology - s/p 2 units PRBC - Has remained stable - c/w Ferrous sulfate HTN - BP well controlled - c/w Chlorthalidone - Lisinopril on hold DLP - c/w Rosuvastatin IDDM2 - c/w ISS Hypothyroidism - c/w Levothyroxine Breast CA s/p bilateral mastectomy - Will have outpatient f/u with oncology Mood disorder - c/w Duloxetine DVT prophylaxis - c/w Heparin Disposition: - PFS looking into subacute rehabilitation placement VS,Fishbone, I+O VS, Fishbone, I+O Laboratory Tests 09/18/18 06:00 Red Blood Count 3.79 L, Mean Corpuscular Volume 82.8, Mean Corpuscular Hemoglobin 27.2, Mean Corpuscular Hemoglobin Concent 32.8, Red Cell Distribution Width 13.9, Calcium Level 8.4 L Vital Signs Date Time Temp Pulse Resp B/P (MAP) Pulse Ox O2 Delivery O2 Flow Rate FiO2 09/18/18 06:00 97.8 70 16 133/53 (79) 96 09/12/18 10:36 10 I&O- Last 24 Hours up to 6 AM 09/18/18 06:00 Intake Total 300 ml Output Total 900 ml Balance -600 ml NATALIA HAMEED MD Sep 18, 2018 12:18
[2018-09-18 14:00] VITALS: BP 144/78
[2018-09-18 22:00] VITALS: BP 130/70
[2018-09-19 05:38] LABS: HEMATOCRIT 29.6 % (36.0-47.0); HEMOGLOBIN 9.7 g/dl (12.0-15.5); MEAN CORPUSCULAR HEMOGLOBIN 27.5 pg (27.0-33.0); MEAN CORPUSCULAR HGB CONC 32.8 g/dl (32.0-36.5); MEAN CORPUSCULAR VOLUME 83.9 fl (80.0-96.0); PLATELET COUNT, AUTOMATED 174 10^3/uL (150-450); RED BLOOD COUNT 3.53 10^6/uL (4.00-5.40); WHITE BLOOD COUNT 7.9 10^3/uL (4.0-10.0)
[2018-09-19] MEDS: LEVOTHYROXINE 137MCG TABLET (0.137MG) PO SCH (05:45)
[2018-09-19] MEDS: HEPARIN SOD (PORCINE) 5000 UNITS/ML VIAL SQ SCH ×3 (05:45→21:34)
[2018-09-19] MEDS: CEFTAROLINE FOSAMIL 300 MG in D5W 50 ML IV SCH ×2 (05:46→18:27)
[2018-09-19] MEDS: SODIUM CHLORIDE 0.9% INJ 10 ML SYR IV SCH ×2 (05:46→18:01)
[2018-09-19 05:53] LABS: C REACTIVE PROTEIN QUANTITATIV 1.55 MG/DL (0.00-0.30); CALCIUM LEVEL 8.3 MG/DL (8.8-10.2); CREATININE FOR GFR 1.14 MG/DL (0.55-1.30); GLOMERULAR FILTRATION RATE 50.5 (>45); POTASSIUM SERUM 4.1 MEQ/L (3.5-5.1)
[2018-09-19 06:00] VITALS: BP 122/56
[2018-09-19] MEDS: ASPIRIN 81 MG ENTERIC TAB PO SCH (07:55)
[2018-09-19] MEDS: GABAPENTIN 400 MG CAP PO SCH ×3 (07:55→21:32)
[2018-09-19] MEDS: ROSUVASTATIN 10 MG TAB (CRESTOR) PO SCH (07:56)
[2018-09-19] MEDS: CHLORTHALIDONE 25 MG TAB PO SCH (07:56)
[2018-09-19] MEDS: DULoxetine 30 MG CAP (CYMBALTA) PO SCH (07:56)
[2018-09-19] MEDS: FERROUS SULFATE 325MG TAB PO SCH (07:56)
[2018-09-19] MEDS: HumaLOG INSULIN (NovoLOG) PER UNIT SC SCH ×4 (07:57→21:33)
[2018-09-19 14:00] VITALS: BP 152/66
--- NOTE | 2018-09-19 14:19 | IPNPDOC ---
Subjective Date Seen The patient was seen on 09/19/18. Subjective Chief Complaint/HPI Patient seen and examined at the bedside. Denies any acute complaints at this time. No overnight events noted. Objective Physical Examination General Exam: Positive: Alert, Cooperative, No Acute Distress ENT Exam: Positive: Atraumatic, Mucous membr. moist/pink Neck Exam: Negative: JVD Chest Exam: Positive: Clear to auscultation, Normal air movement Heart Exam: Positive: Rate Normal, Normal S1, Normal S2 Abdomen Exam: Positive: Soft; Negative: Tenderness Extremity Exam: Positive: Other (Right foot noted to be wrapped in surgical dressing.); Negative: Tenderness Psych Exam: Positive: Oriented x 3 Assessment /Plan Plan/VTE VTE Prophylaxis Ordered?: Yes Plan Osteomyelitis of R foot MRI foot 09/07: 1. Postoperative changes associated with disarticulation at the third metatarsophalangeal joint with prominent soft tissue swelling and phlegmonous change at the operative site, as described above. 2. Acute osteomyelitis of the third metatarsal OR on 09/08/[address] Jimenez: Right foot incision and drainage with 3rd metatarsal head excision. OR on 09/12/[address] Jiemnez: Right foot incision and drainage, wound closure with implantation of antibiotic beads. s/p PICC line; c/w Ceftaroline--as per Dr. Jimenez; patient will require 4-6 weeks of IV antibiotics Dr. Jimenez will manage antibiotics as an outpatient c/w PT; likely subacute rehab placement for [facility] antibiotics s/p ALLA, resolved Anemia - possibly 2/2 AOCD s/p 2 units PRBC H&H remained stable - c/w Ferrous sulfate HTN Cont current regimen DLP Cont Rosuvastatin IDDM2 ISS Long acting insulin added due to hyperglycemia--we will continue to titrate dosing Hypothyroidism Levothyroxine Breast CA s/p bilateral mastectomy Will have outpatient f/u with oncology Mood disorder Duloxetine DVT prophylaxis Heparin SC Disposition: [facility] placement as per PFS VS, I&O, 24H, Fishbone Vital Signs/I&O Vital Signs Date Time Temp Pulse Resp B/P (MAP) Pulse Ox O2 Delivery O2 Flow Rate FiO2 09/19/18 06:00 99.0 66 17 122/56 (78) 95 I&O- Last 24 Hours up to 6 AM 09/19/18 06:00 Intake Total 660 ml Output Total 400 ml Balance 260 ml Laboratory Data 24H LABS Laboratory Tests 2 09/18/18 16:32: Bedside Glucose (Misc Panel) 335H 09/18/18 20:19: Bedside Glucose (Misc Panel) 376H 09/19/18 05:17: Nucleated Red Blood Cells % (auto) 0.0, Anion Gap 7L, Glomerular Filtration Rate 50.5, Blood Urea Nitrogen 24H, Creatinine 1.14, Sodium Level 139, Potassium Level 4.1, Chloride Level 104, Carbon Dioxide Level 28, Calcium Level 8.3L, C- Reactive Protein, Quantitative 1.55H 09/19/18 05:26: Bedside Glucose (Misc Panel) 306H CBC/BMP Laboratory Tests 09/19/18 05:17 Red Blood Count 3.53 L, Mean Corpuscular Volume 83.9, Mean Corpuscular Hemoglobin 27.5, Mean Corpuscular Hemoglobin Concent 32.8, Red Cell Distribution Width 13.9, Calcium Level 8.3 L TABITHA REYES MD Sep 19, 2018 14:19
[2018-09-19] MEDS: LEVEMIR (INSULIN DETEMIR) 1 UNITS/0.01ML SC SCH (21:33)
[2018-09-19 22:00] VITALS: BP 129/78
[2018-09-20 06:00] VITALS: BP 126/69
[2018-09-20] MEDS: CEFTAROLINE FOSAMIL 300 MG in D5W 50 ML IV SCH ×2 (06:06→18:27)
[2018-09-20] MEDS: SODIUM CHLORIDE 0.9% INJ 10 ML SYR IV SCH ×2 (06:06→18:27)
[2018-09-20] MEDS: LEVOTHYROXINE 137MCG TABLET (0.137MG) PO SCH (06:07)
[2018-09-20] MEDS: HEPARIN SOD (PORCINE) 5000 UNITS/ML VIAL SQ SCH ×3 (06:07→21:00)
[2018-09-20] MEDS: GABAPENTIN 400 MG CAP PO SCH ×3 (07:40→20:58)
[2018-09-20] MEDS: DULoxetine 30 MG CAP (CYMBALTA) PO SCH (07:40)
[2018-09-20] MEDS: CHLORTHALIDONE 25 MG TAB PO SCH (07:41)
[2018-09-20] MEDS: ROSUVASTATIN 10 MG TAB (CRESTOR) PO SCH (07:41)
[2018-09-20] MEDS: ASPIRIN 81 MG ENTERIC TAB PO SCH (07:41)
[2018-09-20] MEDS: FERROUS SULFATE 325MG TAB PO SCH (07:41)
[2018-09-20] MEDS: HumaLOG INSULIN (NovoLOG) PER UNIT SC SCH ×4 (07:42→20:58)
[2018-09-20] MEDS: LEVEMIR (INSULIN DETEMIR) 1 UNITS/0.01ML SC SCH (07:42)
[2018-09-20 14:00] VITALS: BP 145/70
--- NOTE | 2018-09-20 15:50 | IPNPDOC ---
Subjective Date Seen The patient was seen on 09/20/18. Subjective Chief Complaint/HPI Patient seen and examined at the bedside. She was noted to be working with physical therapy and doing quite well with a rolling walker. She denied any acute complaints at this time. No overnight events noted. Objective Physical Examination General Exam: Positive: Alert, Cooperative, No Acute Distress ENT Exam: Positive: Atraumatic, Mucous membr. moist/pink Neck Exam: Negative: JVD Chest Exam: Positive: Clear to auscultation, Normal air movement Heart Exam: Positive: Rate Normal, Normal S1, Normal S2 Abdomen Exam: Positive: Soft; Negative: Tenderness Extremity Exam: Positive: Other (Right foot noted to be wrapped in surgical dressing.); Negative: Tenderness Psych Exam: Positive: Oriented x 3 Assessment /Plan Plan/VTE VTE Prophylaxis Ordered?: Yes Plan Osteomyelitis of R foot MRI foot 09/07: 1. Postoperative changes associated with disarticulation at the third metatarsophalangeal joint with prominent soft tissue swelling and phlegmonous change at the operative site, as described above. 2. Acute osteomyelitis of the third metatarsal OR on 09/08/[address] Jimenez: Right foot incision and drainage with 3rd metatarsal head excision. OR on 09/12/[address] Jimenez: Right foot incision and drainage, wound closure with implantation of antibiotic beads. s/p PICC line; c/w Ceftaroline--as per Dr. Jimenez; patient will require 4-6 weeks of total IV antibiotics Dr. Jimenez will manage antibiotics as an outpatient c/w PT s/p ALLA, resolved Anemia - possibly 2/2 AOCD s/p 2 units PRBC H&H remained stable - c/w Ferrous sulfate HTN Cont current regimen DLP Cont Rosuvastatin IDDM2 ISS Long acting insulin added due to hyperglycemia--we will continue to titrate dosing Hypothyroidism Levothyroxine Breast CA s/p bilateral mastectomy Will have outpatient f/u with oncology Mood disorder Duloxetine DVT prophylaxis Heparin SC Disposition: Home w/ services vs Placement as per PT/PFS VS, I&O, 24H, Fishbone Vital Signs/I&O Vital Signs Date Time Temp Pulse Resp B/P (MAP) Pulse Ox O2 Delivery O2 Flow Rate FiO2 09/20/18 14:00 97.9 77 18 145/70 (95) 98 I&O- Last 24 Hours up to 6 AM 09/20/18 06:00 Intake Total 880 ml Output Total 800 ml Balance 80 ml Laboratory Data 24H LABS Laboratory Tests 2 09/19/18 16:09: Bedside Glucose (Misc Panel) 313H 09/19/18 19:59: Bedside Glucose (Misc Panel) 320H 09/20/18 06:03: Bedside Glucose (Misc Panel) 301H 09/20/18 11:55: Bedside Glucose (Misc Panel) 298H TABITHA REYES MD Sep 20, 2018 15:50
[2018-09-20] MEDS ORDERED: LEVEMIR (INSULIN DETEMIR) 1 UNITS/0.01ML SC SCH (21:00)
[2018-09-20 22:00] VITALS: BP 168/70
[2018-09-21 06:00] VITALS: BP 122/54
[2018-09-21] MEDS: LEVOTHYROXINE 137MCG TABLET (0.137MG) PO SCH (06:11)
[2018-09-21] MEDS: SODIUM CHLORIDE 0.9% INJ 10 ML SYR IV SCH ×2 (06:11→18:54)
[2018-09-21] MEDS: HEPARIN SOD (PORCINE) 5000 UNITS/ML VIAL SQ SCH ×3 (06:11→21:17)
[2018-09-21] MEDS: CEFTAROLINE FOSAMIL 300 MG in D5W 50 ML IV SCH ×2 (06:12→18:54)
[2018-09-21 06:37] LABS: HEMATOCRIT 29.4 % (36.0-47.0); HEMOGLOBIN 9.5 g/dl (12.0-15.5); MEAN CORPUSCULAR HEMOGLOBIN 27.3 pg (27.0-33.0); MEAN CORPUSCULAR HGB CONC 32.3 g/dl (32.0-36.5); MEAN CORPUSCULAR VOLUME 84.5 fl (80.0-96.0); PLATELET COUNT, AUTOMATED 187 10^3/uL (150-450); RED BLOOD COUNT 3.48 10^6/uL (4.00-5.40)
[2018-09-21 06:59] LABS: C REACTIVE PROTEIN QUANTITATIV 1.15 MG/DL (0.00-0.30); CALCIUM LEVEL 8.7 MG/DL (8.8-10.2); CREATININE FOR GFR 1.13 MG/DL (0.55-1.30); POTASSIUM SERUM 4.1 MEQ/L (3.5-5.1)
[2018-09-21] MEDS: CHLORTHALIDONE 25 MG TAB PO SCH (08:39)
[2018-09-21] MEDS: LEVEMIR (INSULIN DETEMIR) 1 UNITS/0.01ML SC SCH (08:39)
[2018-09-21] MEDS: ASPIRIN 81 MG ENTERIC TAB PO SCH (08:39)
[2018-09-21] MEDS: HumaLOG INSULIN (NovoLOG) PER UNIT SC SCH ×4 (08:39→21:18)
[2018-09-21] MEDS: GABAPENTIN 400 MG CAP PO SCH ×3 (08:40→21:16)
[2018-09-21] MEDS: DULoxetine 30 MG CAP (CYMBALTA) PO SCH (08:40)
[2018-09-21] MEDS: FERROUS SULFATE 325MG TAB PO SCH (08:40)
[2018-09-21] MEDS: ROSUVASTATIN 10 MG TAB (CRESTOR) PO SCH (08:41)
[2018-09-21] MEDS ORDERED: LINE1TAB PO (13:51)
[2018-09-21 14:00] VITALS: BP 121/59
--- NOTE | 2018-09-21 17:21 | IPNPDOC ---
Subjective Date Seen The patient was seen on 09/21/18. Subjective Chief Complaint/HPI Patient seen and examined at the bedside. No acute overnight events noted. Objective Physical Examination General Exam: Positive: Alert, Cooperative, No Acute Distress ENT Exam: Positive: Atraumatic, Mucous membr. moist/pink Neck Exam: Negative: JVD Chest Exam: Positive: Clear to auscultation, Normal air movement Heart Exam: Positive: Rate Normal, Normal S1, Normal S2 Abdomen Exam: Positive: Soft; Negative: Tenderness Extremity Exam: Positive: Other (Right foot noted to be wrapped in surgical dressing.); Negative: Tenderness Psych Exam: Positive: Oriented x 3 Assessment /Plan Plan/VTE VTE Prophylaxis Ordered?: Yes Plan Osteomyelitis of R foot MRI foot 09/07: 1. Postoperative changes associated with disarticulation at the third metatarsophalangeal joint with prominent soft tissue swelling and phlegmonous change at the operative site, as described above. 2. Acute osteomyelitis of the third metatarsal OR on 09/08/[address] Jimenez: Right foot incision and drainage with 3rd metatarsal head excision. OR on 09/12/[address] Jimenez: Right foot incision and drainage, wound closure with implantation of antibiotic beads. s/p PICC line; c/w Ceftaroline--as per Dr. Jimenez; patient will require 4-6 weeks of total IV antibiotics---However, the patient's insurance has denied IV Abx therapy Will f/u with Dr. Jimenez regarding possible PO options including Linezolid c/w PT s/p ALLA, resolved Anemia - possibly 2/2 AOCD s/p 2 units PRBC H&H remained stable - c/w Ferrous sulfate HTN Cont current regimen DLP Cont Rosuvastatin IDDM2 ISS Long acting insulin added due to hyperglycemia--we will continue to titrate dosing Hypothyroidism Levothyroxine Breast CA s/p bilateral mastectomy Will have outpatient f/u with oncology Mood disorder Duloxetine DVT prophylaxis Heparin SC Disposition: Anticipate D/C in the next 24 hrs once we can transition the patient to a suitable PO Abx and obtain insurance authorization. VS, I&O, 24H, Fishbone Vital Signs/I&O Vital Signs Date Time Temp Pulse Resp B/P (MAP) Pulse Ox O2 Delivery O2 Flow Rate FiO2 09/21/18 14:00 98.0 69 20 121/59 (79) 96 I&O- Last 24 Hours up to 6 AM 09/21/18 06:00 Intake Total 870 ml Output Total 500 ml Balance 370 ml Laboratory Data 24H LABS Laboratory Tests 2 09/20/18 20:45: Bedside Glucose (Misc Panel) 317H 09/21/18 06:13: Nucleated Red Blood Cells % (auto) 0.0, Anion Gap 6L, Glomerular Filtration Rate 51.0, Blood Urea Nitrogen 23H, Creatinine 1.13, Sodium Level 140, Potassium Level 4.1, Chloride Level 106, Carbon Dioxide Level 28, Calcium Level 8.7L, C- Reactive Protein, Quantitative 1.15H CBC/BMP Laboratory Tests 09/21/18 06:13 Red Blood Count 3.48 L, Mean Corpuscular Volume 84.5, Mean Corpuscular Hemoglobin 27.3, Mean Corpuscular Hemoglobin Concent 32.3, Red Cell Distribution Width 14.1, Calcium Level 8.7 L TABITHA REYES MD Sep 21, 2018 17:20
[2018-09-21] MEDS ORDERED: LEVEMIR (INSULIN DETEMIR) 1 UNITS/0.01ML SC SCH (21:00)
[2018-09-21 22:00] VITALS: BP 158/65
[2018-09-22 06:00] VITALS: BP 134/62
[2018-09-22] MEDS: CEFTAROLINE FOSAMIL 300 MG in D5W 50 ML IV SCH (06:13)
[2018-09-22] MEDS: HEPARIN SOD (PORCINE) 5000 UNITS/ML VIAL SQ SCH (06:13)
[2018-09-22] MEDS: LEVOTHYROXINE 137MCG TABLET (0.137MG) PO SCH (06:14)
[2018-09-22] MEDS: SODIUM CHLORIDE 0.9% INJ 10 ML SYR IV SCH (06:14)
[2018-09-22 06:43] LABS: HEMOGLOBIN 9.3 g/dl (12.0-15.5); MEAN CORPUSCULAR HEMOGLOBIN 27.4 pg (27.0-33.0); MEAN CORPUSCULAR HGB CONC 32.1 g/dl (32.0-36.5); MEAN CORPUSCULAR VOLUME 85.3 fl (80.0-96.0); PLATELET COUNT, AUTOMATED 187 10^3/uL (150-450); WHITE BLOOD COUNT 7.5 10^3/uL (4.0-10.0)
[2018-09-22 07:01] LABS: CALCIUM LEVEL 8.4 MG/DL (8.8-10.2); CREATININE FOR GFR 1.23 MG/DL (0.55-1.30); GLOMERULAR FILTRATION RATE 46.2 (>45); POTASSIUM SERUM 4.3 MEQ/L (3.5-5.1)
[2018-09-22] MEDS: HumaLOG INSULIN (NovoLOG) PER UNIT SC SCH ×2 (08:09→12:03)
[2018-09-22] MEDS: ROSUVASTATIN 10 MG TAB (CRESTOR) PO SCH (08:09)
[2018-09-22] MEDS: ASPIRIN 81 MG ENTERIC TAB PO SCH (08:09)
[2018-09-22] MEDS: LEVEMIR (INSULIN DETEMIR) 1 UNITS/0.01ML SC SCH (08:09)
[2018-09-22] MEDS: CHLORTHALIDONE 25 MG TAB PO SCH (08:10)
[2018-09-22] MEDS: FERROUS SULFATE 325MG TAB PO SCH (08:10)
[2018-09-22] MEDS: DULoxetine 30 MG CAP (CYMBALTA) PO SCH (08:10)
[2018-09-22] MEDS: GABAPENTIN 400 MG CAP PO SCH (08:10)
--- NOTE | 2018-09-22 13:18 | DS.PDOC ---
Discharge Summary General Date of Admission Sep 07, 2018 at 18:35 Date of Discharge 09/22/18 Specialist/Consultants Involve Dr. Jimenez of Podiatry Discharge Summary PROCEDURES PERFORMED DURING STAY: OR on 09/08/[address] Jimenez: Right foot incision and drainage with 3rd metatarsal head excision. OR on 09/12/[address] Jimenez: Right foot incision and drainage, wound closure with implantation of antibiotic beads. 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 HISTORY OF PRESENT ILLNESS: . 68-year-old female with past medical history of diabetes, hypertension, hypothyroidism, breast cancer status post bilateral mastectomies who recently underwent right foot third toe incision and drainage/partial amputation with podiatry as an outpatient presented to the ER with a chief complaint of redness and drainage at the site of her amputation. She was initially seen in the outpatient podiatry clinic and was sent to the ER for further evaluation and management. In the ER, the patient was noted to have leukocytosis on lab work and an MRI of the foot revealed acute osteomyelitis of the third metatarsal. The patient was admitted to the hospitalist service and a consult was placed for podiatry for further management. During hospitalization, the patient underwent right foot incision and drainage with third metatarsal head resection by podiatry. Wound cultures were noted and the patient was started on empiric IV antibiotic therapy. Of note, the patient was transfused 2 units of packed red blood cells during hospitalization and her H&H remained stable thereafter. Following surgery the patient continued to progress with physical therapy and has been cleared to return home. The patient has been transitioned to by mouth linezolid for 2 more weeks for a total duration of 6 weeks of abx treatment. I have advised the patient to follow-up with her primary care physician within 7 days and with podiatry within 7 days. Lastly, the patient has been advised to return to the ER for any acute emergencies. DISCHARGE MEDICATIONS: Please see below. ALLERGIES: Please see below. PHYSICAL EXAMINATION ON DISCHARGE: VITAL SIGNS: Please see below. General Exam: Positive: Alert, Cooperative, No Acute Distress ENT Exam: Positive: Atraumatic, Mucous membr. moist/pink Neck Exam: Negative: JVD Chest Exam: Positive: Clear to auscultation, Normal air movement Heart Exam: Positive: Rate Normal, Normal S1, Normal S2 Abdomen Exam: Positive: Soft; Negative: Tenderness Extremity Exam: Positive: Other (Right foot noted to be wrapped in surgical dressing.); Negative: Tenderness Psych Exam: Positive: Oriented x 3 LABORATORY DATA: Please see below. IMAGING: Right foot series: Four views. History: Infection. Comparison right foot radiographs are from May 17, 2017. Findings: The right third toe has been amputated at the MTP joint level in the interval since the May 17, 2017 prior study. There is extensive vascular calcification in the forefoot soft tissues. No acute bony destructive lesion is seen. There is soft tissue swelling adjacent to the amputation site. Plantar calcaneal and Achilles calcaneal spurring is noted. There is soft tissue swelling and irregularity involving the great toe along the medial aspect of the IP joint. Impression: Soft-tissue swelling at the forefoot and IP joint of the great toe. Status post 3rd toe amputation. Vascular calcification. Heel spurs. No acute bony destructive lesion. EXAM: MRI Right Lower Extremity Without and With Contrast, Foot EXAM DATE/TIME: 09/07/2018 7:54 PM CLINICAL HISTORY: 68 years old, female; Pain and signs and symptoms; Cellulitis and difficulty in walking and edema and swelling, leg or foot; Yes, it is localized; Right; Prior surgery; Surgery date: 3-7 days post-operative; Surgery type: Removal of 3rd metatarsal; Patient HX: Pain, swelling, redness, possible osteo, HX of infection in the bone recent SX two weeks prior; Additional info: Abscess right foot, eval for osteomyelitis 3rd metatarsal TECHNIQUE: Imaging protocol: MR of the Right foot without and with intravenous contrast. Contrast material: prohance Contrast volume: 7 ml Contrast route: hand push, 22g angiocath Technique: Multiplanar MRI of the right foot was performed utilizing a variety of sequences prior to and following the uncomplicated administration of intravenous contrast material. COMPARISON: CR Foot, complete 09/07/2018 4:42 PM FINDINGS: The patient is status post disarticulation at the level of the third metatarsophalangeal joint. There is prominent bone marrow edema in the third metatarsal head and shaft, which is most conspicuous on the fluid sensitive sequences, although varus subtle associated T1 hypointensity and enhancement. There is subtle bone marrow edema in the second and fourth metatarsal heads, as well as the base and proximal shaft of the fourth proximal phalanx. This is evident predominantly on the fluid sensitive sequences and is therefore likely reactive. There is no MR evidence of acute fracture or dislocation. Alignment is anatomic. No definite erosive/destructive changes are seen. There is no lytic or blastic lesion. There is diffuse soft tissue swelling and subcutaneous edema with associated enhancement and overlying skin thickening, most pronounced at the operative site. There is loculated fluid and phlegmonous change along the dorsum of the third metatarsal head, tracking along the dorsum of the fourth metatarsophalangeal joint and into the third intertarsal space. No acute tendon or ligament injury is appreciated. IMPRESSION: 1. Postoperative changes associated with disarticulation at the third metatarsophalangeal joint with prominent soft tissue swelling and phlegmonous change at the operative site, as described above. 2. Acute osteomyelitis of the third metatarsal. 3. Probable reactive bone marrow edema in the second and fourth metatarsal heads, as well as the base of the fourth proximal phalanx. PROGNOSIS: Fair ACTIVITY: As tolerated. DIET: Carb consistent diet DISCHARGE PLAN: DISPOSITION: . Home with services DISCHARGE INSTRUCTIONS: I have advised the patient to follow-up with her primary care physician within 7 days and with podiatry within 7 days. Lastly, the patient has been advised to return to the ER for any acute emergencies. DISCHARGE CONDITION: Stable. TIME SPENT ON DISCHARGE: Greater than 30 minutes. Vital Signs/I&Os Vital Signs Date Time Temp Pulse Resp B/P (MAP) Pulse Ox O2 Delivery O2 Flow Rate FiO2 09/22/18 06:00 98.5 66 18 134/62 (86) 99 I&O- Last 24 Hours up to 6 AM 09/22/18 06:00 Intake Total 1480 ml Output Total 0 ml Balance 1480 ml Laboratory Data Labs 24H Laboratory Tests 2 09/21/18 16:46: Bedside Glucose (Misc Panel) 278H 09/21/18 20:29: Bedside Glucose (Misc Panel) 267H 09/22/18 06:27: Nucleated Red Blood Cells % (auto) 0.0 09/22/18 06:28: Anion Gap 6L, Glomerular Filtration Rate 46.2, Blood Urea Nitrogen 24H, Creatinine 1.23, Sodium Level 139, Potassium Level 4.3, Chloride Level 105, Carbon Dioxide Level 28, Calcium Level 8.4L CBC/BMP Laboratory Tests 09/22/18 06:27 Red Blood Count 3.40 L, Mean Corpuscular Volume 85.3, Mean Corpuscular Hemoglobin 27.4, Mean Corpuscular Hemoglobin Concent 32.1, Red Cell Distribution Width 14.1 09/22/18 06:28 Calcium Level 8.4 L FSBS Laboratory Tests Test 09/21/18 16:46 09/21/18 20:29 Range/Units Bedside Glucose (Misc Panel) 278 267 80-115 MG/DL Discharge Medications Scheduled (Toujeo Solostar) 300 Unit/Ml Inj, 80 UNIT SC DAILY, (Reported) (Toujeo Solostar) 300 Unit/Ml Inj, 30 UNIT SC QHS, (Reported) Alendronate Sodium (Fosamax) 70 Mg Tab, 70 MG PO QWEEK, (Reported) PATIENT IS UNSURE OF WHAT DAY SHE TAKES THIS MED Aspirin (Aspirin EC) 81 Mg Tabec, 81 MG PO DAILY, (Reported) Calcium/Vitamin D (Calcium 600 + D 600-400 mg-Unit) 1 Tab Tab, 1 TAB PO DAILY, (Reported) Chlorthalidone (Chlorthalidone) 25 Mg Tab, 25 MG PO DAILY, (Reported) Duloxetine Hcl (Duloxetine HCl) 30 Mg Cap, 30 MG PO DAILY, (Reported) Ferrous Sulfate (Ferrous Sulfate) 325 Mg Tab, 325 MG PO DAILY, (Reported) Gabapentin (Gabapentin) 800 Mg Tab, 800 MG PO TID, (Reported) Insulin Human Lispro (Humalog) 100 Unit/Ml Inj, 0 SC ACHS, (Reported) PER SLIDING SCALE Levothyroxine Sodium (Synthroid) 137 Mcg Tab, 137 MCG PO DAILY, (Reported) Linezolid (Linezolid) 600 Mg Tab, 1 TAB PO BID Lisinopril (Lisinopril) 20 Mg Tab, 20 MG PO BID, (Reported) Meloxicam (Meloxicam) 15 Mg Tab, 15 MG PO DAILY, (Reported) Mupirocin (Mupirocin) 2 % Oin, 1 APLCT TOP DAILY, (Reported) apply to affected area(s) Rosuvastatin Calcium (Crestor) 40 Mg Tab, 40 MG PO DAILY, (Reported) Vitamin D (Drisdol) 50,000 Unit Cap, 50,000 UNIT PO Q2WK, (Reported) PATIENT IS UNSURE OF WHAT DAY SHE TAKES THIS MED Miscellaneous Medications [Comment ] , (Reported) MED LIST OBTAINED FROM EXTERNAL HISTORY AND PT Allergies Coded Allergies: Penicillins (Verified Allergy, Intermediate, "flips out", hives, 09/13/18) TABITHA REYES MD Sep 22, 2018 13:18
== END 2018-09-22 13:12 | disposition home health service (06) | DRG 629 ==
LOC: M ED 14:11 → M ED INP 18:35 → M MSPAV 21:13
PROVIDERS: ADMIT Internal Medicine; ATTEND Internal Medicine
PROC: 0QBN0ZZ Excision of Right Metatarsal, Open Approach (ICD-10-PCS; principal; 2018-09-08 16:00)
PROC: 30233N1 Transfusion of Nonautologous Red Blood Cells into Peripheral Vein, Percutaneous Approach (ICD-10-PCS; 2018-09-11)
PROC: 3E0V329 Introduction of Other Anti-infective into Bones, Percutaneous Approach (ICD-10-PCS; 2018-09-12)
PROC: 02HV33Z Insertion of Infusion Device into Superior Vena Cava, Percutaneous Approach (ICD-10-PCS; 2018-09-14)
DX: E11.69 Type 2 diabetes mellitus with other specified complication (principal); M86.171 Other acute osteomyelitis, right ankle and foot; N17.9 Acute kidney failure, unspecified; I10 Essential (primary) hypertension; E03.9 Hypothyroidism, unspecified; F39 Unspecified mood [affective] disorder; D63.8 Anemia in other chronic diseases classified elsewhere; Z85.3 Personal history of malignant neoplasm of breast; Z90.13 Acquired absence of bilateral breasts and nipples; Z79.4 Long term (current) use of insulin; Z79.1 Long term (current) use of non-steroidal anti-inflammatories (NSAID); Z79.82 Long term (current) use of aspirin; Z79.899 Other long term (current) drug therapy; Z88.0 Allergy status to penicillin; Z89.421 Acquired absence of other right toe(s)

== ENCOUNTER 2018-10-11 14:57 | Emergency (ER) | payer MEDICARE, MEDICAID ==
[~2018-10-11 14:57] MED LIST changes: +COMMENT; +LINE1TAB PO; +MUPI2OI TOP
[2018-10-11] MEDS ORDERED: NS 1,000 ML IV SCH (15:43)
[2018-10-11] MEDS ORDERED: ONDANSETRON 4MG/2ML VIAL (J2405) IV ONE ×2 (15:45→18:15)
[2018-10-11 16:44] LABS: BASO % 0.5 % (0.0-1.0); EOS # 0.2 10^3/uL (0.0-0.50); HEMATOCRIT 31.3 % (36.0-47.0); HEMOGLOBIN 10.6 g/dl (12.0-15.5); LYMPH # 1.8 10^3/uL (1.5-4.5); LYMPH % 20.8 % (24.0-44.0); MEAN CORPUSCULAR HEMOGLOBIN 27.2 pg (27.0-33.0); MEAN CORPUSCULAR HGB CONC 33.9 g/dl (32.0-36.5); MEAN CORPUSCULAR VOLUME 80.5 fl (80.0-96.0); MONO # 0.7 10^3/uL (0.0-0.8); MONO % 7.6 % (0.0-5.0); NEUTROPHILS # 5.8 10^3/uL (1.8-7.7); NEUTROPHILS % 68.4 % (36.0-66.0); PLATELET COUNT, AUTOMATED 130 10^3/uL (150-450); RED BLOOD COUNT 3.89 10^6/uL (4.00-5.40); WHITE BLOOD COUNT 8.5 10^3/uL (4.0-10.0)
[2018-10-11 17:14] LABS: ALBUMIN 3.9 GM/DL (3.2-5.2); BILIRUBIN,DIRECT 0.3 MG/DL (0.0-0.2); BILIRUBIN,TOTAL 1.5 MG/DL (0.2-1.0); CALCIUM LEVEL 9.3 MG/DL (8.8-10.2); CREATININE FOR GFR 1.42 MG/DL (0.55-1.30); GLOMERULAR FILTRATION RATE 39.2 (>45); POTASSIUM SERUM 4.2 MEQ/L (3.5-5.1); TOTAL PROTEIN 7.7 GM/DL (6.4-8.2)
[2018-10-11] MEDS: GASTROGRAFIN SOLUTION 30ML PO SCH ×2 (18:32→18:35)
[2018-10-11] MEDS ORDERED: ISOVUE-370 76% 100ML VIAL (Q9967) As Ordered ONE (20:05)
--- NOTE | 2018-10-11 21:35 | REPVR ---
EXAM: CT Abdomen and Pelvis With Contrast EXAM DATE/TIME: 10/11/2018 8:14 PM CLINICAL HISTORY: 68 years old, female; Abdominal pain; Additional info: Bilat low abd pain, vomiting TECHNIQUE: Imaging protocol: Axial computed tomography images of the abdomen and pelvis with intravenous contrast. Coronal and sagittal reformatted images were created and reviewed. Radiation optimization: All CT scans at this facility use at least one of these dose optimization techniques: automated exposure control; mA and/or kV adjustment per patient size (includes targeted exams where dose is matched to clinical indication); or iterative reconstruction. Contrast material: ISOVUE 370; Contrast volume: 100 ml; Contrast route: IV; COMPARISON: CT ABD PELVIS W/O CONTRAST 04/05/2018 3:08 PM FINDINGS: Lungs: 3 mm pulmonary nodule right lower lobe (series 201 image 4). Stable since 2016. 3 mm pulmonary nodule left lower lobe (series 20 image 4) ABDOMEN: Liver: The liver appears low in density. Gallbladder and bile ducts: The gallbladder is absent. Surgical clips in the gallbladder fossa. Pancreas: Normal. No ductal dilation. Spleen: Normal. No splenomegaly. Adrenals: Normal. No mass. Kidneys and ureters: Normal. No hydronephrosis. Stomach and bowel: Suggestion of mild wall thickening noted of the descending and sigmoid colon. No pericolonic inflammatory changes. Appendix: Not seen as a separate structure. PELVIS: Bladder: Unremarkable as visualized. Reproductive: Unremarkable as visualized. ABDOMEN and PELVIS: Intraperitoneal space: Normal. No free air. No significant fluid collection. Bones/joints: No acute fracture. No dislocation. Soft tissues: There appears to be a mesh applied to the anterior peritoneal surface of the anterior abdominal wall. There is rectus diastases.. There are multiple soft tissue nodules noted within the subcutaneous fat of the anterior abdominal wall which were not noted on previous examinations. Vasculature: Normal. No abdominal aortic aneurysm. Lymph nodes: Normal. No enlarged lymph nodes. Other findings: The caudate is enlarged. IMPRESSION: 1. Mild wall thickening suggested of the descending and sigmoid colon . This could be related to relative underdistention although a mild colitis cannot be excluded 2. Several subcutaneous nodules noted within the fat of the anterior abdominal wall. These could be related to subcutaneous injections. Clinical correlation needed. 3. Hepatic steatosis. 4. Pulmonary nodules. The one on the right is stable from 2016. The one on the left stable from 2017. Electronically signed by: Mckayla Ojeda On 10/11/2018 21:35:41 PM
[2018-10-11 23:15] VITALS: BP 149/75
[2018-10-11] MEDS ORDERED: ONDA4TAB6 PO (23:41)
[2018-10-23] MEDS ORDERED: CALCD50TA (14:42)
== END 2018-10-12 00:07 | disposition home or self-care (01) ==
LOC: EDBD 14:57 → M ED 14:57
DX: K52.9 Noninfective gastroenteritis and colitis, unspecified (principal); E11.9 Type 2 diabetes mellitus without complications; I10 Essential (primary) hypertension; E07.9 Disorder of thyroid, unspecified; Z85.3 Personal history of malignant neoplasm of breast; K76.0 Fatty (change of) liver, not elsewhere classified; R91.8 Other nonspecific abnormal finding of lung field; Z79.82 Long term (current) use of aspirin; Z79.4 Long term (current) use of insulin; Z79.899 Other long term (current) drug therapy; Z88.0 Allergy status to penicillin
CPT/HCPCS: 74177; 80048; 80076; 83690; 85025; 93041; 96361; 96374; 96376; 99285; J2405; Q9963; Q9967

== ENCOUNTER → 2018-11-01 | Outpatient (CLI) | payer MEDICARE, MEDICAID ==
[~2018-11-01] MED LIST changes: +CALCD50TA; +ONDA4TAB6 PO
--- NOTE | 2018-11-01 13:14 | REP ---
Four-quadrant abdominal sonographic survey: History: The patient is referred for paracentesis. Sonographic findings: Four-quadrant abdominal survey shows no evidence of ascites. Accordingly, paracentesis was not performed. Electronically Signed by Darryn Gonzalez MD 11/01/2018 01:05 P
== END ==
LOC: M RADPRO 11:42
PROVIDERS: ATTEND Internal Medicine Hematology & Oncology
DX: R18.8 Other ascites (principal); Z85.3 Personal history of malignant neoplasm of breast

== ENCOUNTER → 2018-11-10 | Outpatient (REF) | payer MEDICARE, MEDICAID ==
[2018-11-10 17:56] LABS: BASO # 0.1 10^3/uL (0.0-0.2); BASO % 0.8 % (0.0-1.0); EOS # 0.3 10^3/uL (0.0-0.50); EOS % 2.8 % (0.0-3.0); HEMATOCRIT 33.2 % (36.0-47.0); HEMOGLOBIN 10.5 g/dl (12.0-15.5); LYMPH # 2.5 10^3/uL (1.5-4.5); LYMPH % 26.8 % (24.0-44.0); MEAN CORPUSCULAR HEMOGLOBIN 27.1 pg (27.0-33.0); MEAN CORPUSCULAR HGB CONC 31.6 g/dl (32.0-36.5); MEAN CORPUSCULAR VOLUME 85.8 fl (80.0-96.0); MONO # 0.8 10^3/uL (0.0-0.8); MONO % 8.2 % (0.0-5.0); NEUTROPHILS # 5.4 10^3/uL (1.8-7.7); NEUTROPHILS % 59.4 % (36.0-66.0); PLATELET COUNT, AUTOMATED 253 10^3/uL (150-450); RED BLOOD COUNT 3.87 10^6/uL (4.00-5.40); WHITE BLOOD COUNT 9.2 10^3/uL (4.0-10.0)
[2018-11-10 18:09] LABS: CALCIUM LEVEL 9.3 MG/DL (8.8-10.2); CHOLESTEROL RISK RATIO 2.562 (<5); CREATININE FOR GFR 1.13 MG/DL (0.55-1.30); POTASSIUM SERUM 4.4 MEQ/L (3.5-5.1); THYROID STIMULATING HORMONE 6.87 uIU/ML (0.358-3.740); TOTAL PROTEIN 7.3 GM/DL (6.4-8.2)
[2018-11-10 18:35] LABS: HEMOGLOBIN A1c 9.2 %
[2018-11-13 09:31] LABS: TOTAL 25(OH) VITAMIN D 50.6 NG/ML (30.0-100.0)
== END ==
LOC: M LAB REF 17:03
PROVIDERS: ATTEND Nurse Practitioner Family
DX: E78.5 Hyperlipidemia, unspecified (principal); Z13.9 Encounter for screening, unspecified

== ENCOUNTER → 2018-11-23 | Outpatient (REF) | payer MEDICARE, MEDICAID ==
[2018-11-23 11:10] LABS: BASO # 0.1 10^3/uL (0.0-0.2); BASO % 0.9 % (0.0-1.0); EOS # 0.2 10^3/uL (0.0-0.50); EOS % 3.3 % (0.0-3.0); HEMATOCRIT 31.9 % (36.0-47.0); HEMOGLOBIN 10.4 g/dl (12.0-15.5); LYMPH # 1.7 10^3/uL (1.5-4.5); MEAN CORPUSCULAR HEMOGLOBIN 27.4 pg (27.0-33.0); MEAN CORPUSCULAR HGB CONC 32.6 g/dl (32.0-36.5); MEAN CORPUSCULAR VOLUME 84.2 fl (80.0-96.0); MONO # 0.5 10^3/uL (0.0-0.8); MONO % 8.1 % (0.0-5.0); NEUTROPHILS % 60.2 % (36.0-66.0); PLATELET COUNT, AUTOMATED 218 10^3/uL (150-450); RED BLOOD COUNT 3.79 10^6/uL (4.00-5.40); WHITE BLOOD COUNT 6.7 10^3/uL (4.0-10.0)
[2018-11-23 11:26] LABS: ALBUMIN 3.6 GM/DL (3.2-5.2); BILIRUBIN,TOTAL 0.9 MG/DL (0.2-1.0); CHOLESTEROL RISK RATIO 2.382 (<5); CREATININE FOR GFR 1.06 MG/DL (0.55-1.30); GLOMERULAR FILTRATION RATE 54.9 (>45); POTASSIUM SERUM 4.5 MEQ/L (3.5-5.1); THYROID STIMULATING HORMONE 5.41 uIU/ML (0.358-3.740); TOTAL 25(OH) VITAMIN D 43.9 NG/ML (30.0-100.0)
[2018-11-23 11:32] LABS: HEMOGLOBIN A1c 9.5 %
== END ==
LOC: M LABDRAW1 09:09
PROVIDERS: ATTEND Nurse Practitioner Family
DX: Z13.9 Encounter for screening, unspecified (principal); E11.65 Type 2 diabetes mellitus with hyperglycemia; E89.0 Postprocedural hypothyroidism; E55.9 Vitamin D deficiency, unspecified; D64.9 Anemia, unspecified

== ENCOUNTER → 2018-12-05 | Outpatient (CLI) | payer MEDICARE, MEDICAID ==
--- NOTE | 2018-12-07 13:11 | DEXA ---
AP SPINE L1 - L4 1.187 -0.1 1.6 LT FEMUR TOTAL 0.871 -1.1 0.3 LT NECK 0.808 -1.7 0.0 RT FEMUR TOTAL 0.862 -1.2 0.2 RT NECK 0.747 -2.1 -0.5 TOTAL BODY TOTAL OTHER COMMENTS: Normal bone densitometry of the spine. There is low bone density of the hips. The density of the spine has decreased 3.6% since the initial exam on 02/12/2007. The spine density has increased 1.6% since the most recent exam on 02/05/2011. The density of the left hip has decreased 7.4% since the initial exam on 02/12/2009. The density of the left hip has decreased 3.0% since the most recent exam on 02/05/2011. The density of the right hip has decreased 13.3% since the initial exam on 02/12/2009. The density of the right hip has decreased 7.8% since most recent exam on 02/05/2011. FOLLOW-UP: Recommendation for the next bone density exam: 2 years. RAMESH
== END ==
LOC: M WHC 12:24
PROVIDERS: ATTEND Physician Assistant
DX: M89.9 Disorder of bone, unspecified (principal)

== ENCOUNTER → 2019-02-07 | Outpatient (CLI) | payer MEDICARE, MEDICAID ==
[~2019-02-07] MED LIST changes: -DULO1CAP2 PO; +DULO1CAP5 PO
--- NOTE | 2019-02-07 15:33 | REP ---
HISTORY: Leg pain after trauma three months ago. COMPARISON: 12/15/2005 FINDINGS: No acute fracture or destructive osseous lesion. No significant change from the prior exam. Mild chronic changes seen involving the knee. Plantar and retrocalcaneal heel spurs are seen. Electronically Signed by Lester Gill DO 02/07/2019 05:18 P
== END ==
LOC: M RAD 13:02
PROVIDERS: ATTEND Family Medicine
DX: M79.605 Pain in left leg (principal)

== ENCOUNTER → 2019-02-12 | Outpatient (CLI) | payer MEDICARE, MEDICAID ==
[~2019-02-12] MED LIST changes: -CALCD50TA; +CALCD50TA PO; +GASTROGRAFIN SOLUTION 30ML (Q9963) As Ordered ONE; +ISOVUE-370 76% 100ML VIAL (Q9967) As Ordered ONE; +ONDA8TAB10 PO; -ONDA8TAB7 PO
--- NOTE | 2019-02-12 15:42 | REP ---
WHOLE BODY BONE SCAN: Following the intravenous administration of 20.5 mCi of technetium-99m MDP, patient's whole body is imaged in the anterior and posterior projections with additional oblique and lateral views obtained. Comparison made with prior study of 07/09/2016. There is a focus of increased uptake in the posterolateral left 10th rib which is new. Correlating with today's CT of the chest there appears to be a healing fracture at that location with no definite underlying bone lesion. There is vague mild increased uptake in the mid left tibia anteriorly. This probably represents an occult bone bruise/fracture. There is reported history of trauma to this region 3 months ago with plain films of the left lower leg not revealing a fracture 02/07/2019. No other scintigraphic abnormalities are seen. There is no compelling scintigraphic evidence of osseous metaphyses. Renal and bladder activity are seen. IMPRESSION: No compelling scintigraphic evidence of osseous metastases. There is a new focus of increased uptake in the posterolateral left 10th rib. Which appears to correspond to a healing rib fracture on today's CT of the chest, with no definite underlying bone lesion. There is mild vague increased uptake in the mid anterior left tibia which I suspect represents an occult bone bruise or stress fracture as discussed above. Plain films of that area dated 02/07/2019 do not show a fracture or bone lesion, with reported trauma sustained approximately 3 months ago. Electronically Signed by Mayco Rodriguez MD 02/13/2019 11:30 P
--- NOTE | 2019-02-13 12:13 | REP ---
CT of the chest with IV contrast for breast cancer restaging: Comparison is 04/05/2018. The patient has history of bilateral mastectomies. There is a 4 mm right lower lobe lung nodule to, unchanged from 04/05/2018 and 09/22/2016, likely benign. No other lung masses or nodules are identified. There are no infiltrates or pleural effusions. There is no mediastinal, hilar, hilar or axilla enlarging nodes. There are surgical clips in the left axilla. There is skin thickening in the right axilla and induration of the underlying soft tissues. This could be post radiation or postsurgical change. There are no lytic, blastic or destructive skeletal changes. The thoracic aorta is unremarkable. Cardiac size is normal. There is no pericardial effusion. Impression: There is a 4 mm lung nodule in the right lower lobe, stable from 09/22/2016, likely a granuloma. There are no other lung nodules or masses. There are no infiltrates or effusions. There is no lymph node enlargement. There is skin thickening in the right axilla with induration of the underlying subcutaneous soft tissues. This could be post radiation or postsurgical change. No evidence of skeletal metastases. Electronically Signed by Mayco Nova MD 02/12/2019 11:49 A
--- NOTE | 2019-02-13 12:13 | REP ---
CT of the abdomen and pelvis with IV and oral contrast: The study is initially performed during the late arterial / portal venous phase of enhancement. Scanning of the abdomen not including the pelvis is again performed during the delayed equilibrium phase of enhancement. The study is performed contiguous with the chest CT this same date. Comparison is 10/11/2018. Within the visualized lower lung joshi. There is a 4 mm lung nodule in the right lower lobe on image 4, unchanged from 10/11 2018 and 09/22/2016, likely a granuloma. Additionally, there is a 3 mm lung nodule in the left lower lobe on image 1, unchanged from 09/21/2018 and 04/05/2018. The hepatic parenchyma is homogeneous on both phases of the study. There is no evidence of hepatic metastatic disease. There are surgical clips in the gallbladder fossa., unchanged. The pancreas, spleen, adrenals, kidneys and abdominal aorta are unremarkable. There is no periaortic adenopathy or mass. The bowel and mesentery are unremarkable. There is no ascites. There is no mesenteric adenopathy. Pelvis: There is diastases of the inferior rectus abdominus with bulging of omental fat but no bowel. The bladder, uterus and adnexa are unremarkable. The pelvic bowel loops are unremarkable. There are no lytic, blastic or destructive skeletal changes. There is degenerative disc disease at L5 S1. Impression: There is a small lung nodule in the right lower lobe and a small lung nodule in the left lower lobe, unchanged from prior studies as described. There is no adenopathy or ascites. No evidence of hepatic metastatic disease. The adrenals are unremarkable. Otherwise, negative CT study of the abdomen and pelvis. Electronically Signed by Mayco Nova MD 02/12/2019 12:07 P
== END ==
LOC: M RAD 09:15
PROVIDERS: ATTEND Internal Medicine Medical Oncology
DX: C50.811 Malignant neoplasm of overlapping sites of right female breast (principal); Z17.0 Estrogen receptor positive status [ER+]
CPT/HCPCS: 71260; 74177; 78306; A9503; Q9963; Q9967

== ENCOUNTER → 2019-03-27 | Outpatient (REF) | payer MEDICARE, MEDICAID ==
[~2019-03-27] MED LIST changes: +CALCD50TA; -CALCD50TA PO; -GASTROGRAFIN SOLUTION 30ML (Q9963) As Ordered ONE; -ISOVUE-370 76% 100ML VIAL (Q9967) As Ordered ONE; -ONDA8TAB10 PO; +ONDA8TAB7 PO
[2019-03-27 18:04] LABS: MAU/CREAT RATIO 84.3 MCG/MG (0.0-30.0)
[2019-03-27 18:10] LABS: ALBUMIN 4.1 GM/DL (3.2-5.2); BILIRUBIN,TOTAL 0.8 MG/DL (0.2-1.0); CALCIUM LEVEL 10.2 MG/DL (8.8-10.2); CHOLESTEROL RISK RATIO 2.66 (<5); CREATININE FOR GFR 1.41 MG/DL (0.55-1.30); FREE T4 1.03 NG/DL (0.76-1.46); GLOMERULAR FILTRATION RATE 39.5 (>45); POTASSIUM SERUM 4.4 MEQ/L (3.5-5.1); THYROID STIMULATING HORMONE 3.19 uIU/ML (0.358-3.740); TOTAL PROTEIN 7.9 GM/DL (6.4-8.2)
[2019-03-27 18:13] LABS: HEMOGLOBIN A1c 10.4 %
== END ==
LOC: M LAB REF 16:16
PROVIDERS: ATTEND Family Medicine
DX: E89.0 Postprocedural hypothyroidism (principal); E11.40 Type 2 diabetes mellitus with diabetic neuropathy, unspecified

== ENCOUNTER 2019-04-16 08:19 | Day surgery (SDC) | payer MEDICARE, MEDICAID ==
[~2019-04-16] VITALS: Ht 162.6 cm; Wt 82.1 kg
[~2019-04-16 08:19] MED LIST changes: -CALCD50TA; +CALCD50TA PO; +NS 1,000 ML IV ONE
[2019-04-16] MEDS ORDERED: PROPOFOL 200 MG/20 ML VIAL As Ordered ONE (09:41)
[2019-04-16] MEDS ORDERED: LIDOCAINE 2% INJ 100 MG/5 ML SDV (FOR ANES.) As Ordered ONE (09:41)
--- NOTE | 2019-04-16 10:12 | ROOR ---
Patient Name: Carol Ann Grier Procedure Date: 04/16/2019 9:58 AM Date of : 1950 Age: 68 Room: [facility] Gender: Female Note Status: Finalized Procedure: Upper GI endoscopy Indications: Anemia (Mixed, iron deficit) Providers: Carlos VEE MD Referring MD: Elton SANCHEZ MD Requesting Provider: Medicines: Monitored Anesthesia Care Complications: No immediate complications. Procedure: Pre-Anesthesia Assessment: - The heart rate, respiratory rate, oxygen saturations, blood pressure, adequacy of pulmonary ventilation, and response to care were monitored throughout the procedure. The Endoscope was introduced through the mouth, and advanced to the second part of duodenum. The upper GI endoscopy was accomplished without difficulty. The patient tolerated the procedure well. Findings: The esophagus was normal. The stomach was normal. The examined duodenum was normal. Impression: - Normal esophagus. - Normal stomach. - Normal examined duodenum. - No specimens collected. Recommendation: - Observe patient's clinical course. - Perform a colonoscopy. Carlos Vee MD Carlos VEE MD 04/16/2019 10:12:18 AM Electronically signed by Carlos VEE MD Number of Addenda: 0 Note Initiated On: 04/16/2019 9:58 AM Estimated Blood Loss: Estimated blood loss: none.
--- NOTE | 2019-04-16 10:35 | ROOR ---
Patient Name: Carol Ann rGier Procedure Date: 04/16/2019 9:58 AM Date of : 1950 Age: 68 Room: [facility] Gender: Female Note Status: Finalized Procedure: Colonoscopy Indications: Iron deficiency anemia Providers: Carlos VEE MD Referring MD: Elton SANCHEZ MD Requesting Provider: Medicines: Monitored Anesthesia Care Complications: No immediate complications. Procedure: Pre-Anesthesia Assessment: - The heart rate, respiratory rate, oxygen saturations, blood pressure, adequacy of pulmonary ventilation, and response to care were monitored throughout the procedure. The Colonoscope was introduced through the anus and advanced to the cecum, identified by appendiceal orifice and ileocecal valve. The colonoscopy was performed without difficulty. The patient tolerated the procedure well. The quality of the bowel preparation was good. Findings: The perianal and digital rectal examinations were normal. A single medium-sized angioectasia with stigmata of recent bleeding was found in the mid ascending colon. For hemostasis, four hemostatic clips were successfully placed. Bleeding had stopped at the end of the procedure. Two sessile polyps were found in the proximal sigmoid colon and ascending colon. The polyps were 4 to 5 mm in size. These polyps were removed with a hot snare. Resection and retrieval were complete. Mild sigmoid diverticulosis and small internal hemorrhoids. The exam was otherwise without abnormality on direct and retroflexion views. Impression: - A single recently bleeding (adherent clot) colonic angioectasia in the mid ascending colon. Clips were placed. - Two 4 to 5 mm polyps in the proximal sigmoid colon and in the ascending colon, removed with a hot snare. Resected and retrieved. - Mild sigmoid diverticulosis and small internal hemorrhoids. - The examination was otherwise normal on direct and retroflexion views. Recommendation: - No ibuprofen, naproxen, or other non-steroidal anti-inflammatory drugs. - Repeat colonoscopy in 5 years for surveillance. Carlos Vee MD Carlos VEE MD 04/16/2019 10:35:26 AM Electronically signed by Carlos VEE MD Number of Addenda: 0 Note Initiated On: 04/16/2019 9:58 AM Estimated Blood Loss: Estimated blood loss: none.
[2019-04-16 10:55] VITALS: BP 129/68
== END 2019-04-16 11:03 | disposition home or self-care (01) ==
LOC: M OPP 08:19
PROVIDERS: ATTEND Internal Medicine Gastroenterology
DX: K55.21 Angiodysplasia of colon with hemorrhage (principal); K63.5 Polyp of colon; D50.9 Iron deficiency anemia, unspecified; K64.8 Other hemorrhoids; K57.30 Diverticulosis of large intestine without perforation or abscess without bleeding; E11.9 Type 2 diabetes mellitus without complications; Z79.4 Long term (current) use of insulin; Z79.82 Long term (current) use of aspirin; Z79.899 Other long term (current) drug therapy; Z88.0 Allergy status to penicillin; Z85.3 Personal history of malignant neoplasm of breast; Z92.21 Personal history of antineoplastic chemotherapy

== ENCOUNTER → 2019-04-30 | Outpatient (REF) | payer MEDICARE, MEDICAID ==
[~2019-04-30] MED LIST changes: -NS 1,000 ML IV ONE
[2019-04-30 13:07] LABS: ALBUMIN 3.6 GM/DL (3.2-5.2); BILIRUBIN,TOTAL 0.5 MG/DL (0.2-1.0); CALCIUM LEVEL 10.7 MG/DL (8.8-10.2); CHOLESTEROL RISK RATIO 3.022 (<5); CREATININE FOR GFR 1.46 MG/DL (0.55-1.30); GLOMERULAR FILTRATION RATE 37.8 (>45); POTASSIUM SERUM 4.7 MEQ/L (3.5-5.1); TOTAL PROTEIN 7.4 GM/DL (6.4-8.2)
[2019-04-30 14:03] LABS: HEMOGLOBIN A1c 10.2 %
== END ==
LOC: M LAB REF 12:14
PROVIDERS: ATTEND Family Medicine
DX: E11.65 Type 2 diabetes mellitus with hyperglycemia (principal)

== ENCOUNTER → 2019-08-23 | Outpatient (REF) | payer MEDICARE, MEDICAID, OTHER ==
[~2019-08-23] MED LIST changes: +ONDA8TAB10 PO; -ONDA8TAB7 PO
[2019-08-23 17:38] LABS: ALBUMIN 3.8 GM/DL (3.2-5.2); BILIRUBIN,TOTAL 0.8 MG/DL (0.2-1.0); CALCIUM LEVEL 9.6 MG/DL (8.8-10.2); CHOLESTEROL RISK RATIO 2.577 (<5); CREATININE FOR GFR 1.42 MG/DL (0.55-1.30); POTASSIUM SERUM 4.6 MEQ/L (3.5-5.1); TOTAL PROTEIN 7.5 GM/DL (6.4-8.2)
[2019-08-23 18:14] LABS: HEMOGLOBIN A1c 10.3 %
== END ==
LOC: M LAB REF 17:00
PROVIDERS: ATTEND Family Medicine
DX: E11.65 Type 2 diabetes mellitus with hyperglycemia (principal)

== ENCOUNTER → 2020-03-25 | Outpatient (REF) | payer MEDICARE, MEDICAID, OTHER ==
[~2020-03-25] MED LIST changes: +ACET-907 PO; +ANAS1TAB2 PO; +CALCCAP4 PO; +CLEO300C2 PO; +COLA100C5 PO; +META28.32 PO; +NAPR-885 PO; +NEUR300C PO; +NITR4TASL SL; +PANT40TA29 PO; -PANT40TA3 PO; +TRUL10IN SC
[2020-03-25 17:25] LABS: BASO # 0.1 10^3/uL (0.0-0.2); BASO % 0.8 % (0.0-1.0); EOS # 0.2 10^3/uL (0.0-0.5); EOS % 2.9 % (0.0-3.0); HEMATOCRIT 33.6 % (36.0-47.0); HEMOGLOBIN 10.5 g/dl (12.0-15.5); LYMPH # 1.6 10^3/uL (1.5-5.0); LYMPH % 23.9 % (24.0-44.0); MEAN CORPUSCULAR HEMOGLOBIN 26.5 pg (27.0-33.0); MEAN CORPUSCULAR HGB CONC 31.3 g/dl (32.0-36.5); MEAN CORPUSCULAR VOLUME 84.8 fl (80.0-96.0); MONO # 0.6 10^3/uL (0.0-0.8); MONO % 8.3 % (0.0-5.0); NEUTROPHILS # 4.2 10^3/uL (1.5-8.5); NEUTROPHILS % 62.9 % (36.0-66.0); PLATELET COUNT, AUTOMATED 244 10^3/uL (150-450); RED BLOOD COUNT 3.96 10^6/uL (4.00-5.40); WHITE BLOOD COUNT 6.6 10^3/uL (4.0-10.0)
[2020-03-25 17:52] LABS: HEMOGLOBIN A1c 11.5 %
[2020-03-25 18:07] LABS: ALBUMIN 3.5 GM/DL (3.2-5.2); BILIRUBIN,TOTAL 0.8 MG/DL (0.2-1.0); CALCIUM LEVEL 9.4 MG/DL (8.8-10.2); CHOLESTEROL RISK RATIO 2.369 (<5); FREE T4 1.04 NG/DL (0.76-1.46); GLOMERULAR FILTRATION RATE 58.5 (>45); POTASSIUM SERUM 4.6 MEQ/L (3.5-5.1); THYROID STIMULATING HORMONE 8.25 uIU/ML (0.358-3.740); TOTAL 25(OH) VITAMIN D 37.5 NG/ML (30.0-100.0); TOTAL PROTEIN 6.9 GM/DL (6.4-8.2)
== END ==
LOC: M LAB REF 16:33
PROVIDERS: ATTEND Nurse Practitioner Family
DX: Z13.9 Encounter for screening, unspecified (principal); D64.9 Anemia, unspecified; E66.09 Other obesity due to excess calories; E89.0 Postprocedural hypothyroidism; J45.909 Unspecified asthma, uncomplicated

== ENCOUNTER 2020-04-12 21:22 | Emergency (ER) | payer MEDICARE, OTHER ==
[~2020-04-12] VITALS: Ht 162.6 cm; Wt 82.3 kg
[~2020-04-12 21:22] MED LIST changes: -ACET-907 PO; -ANAS1TAB2 PO; -CALCCAP4 PO; -CLEO300C2 PO; -COLA100C5 PO; -META28.32 PO; -NAPR-885 PO; -NEUR300C PO; -NITR4TASL SL; -TRUL10IN SC
[2020-04-12] MEDS ORDERED: ISOVUE-370 76% 100ML VIAL As Ordered ONE (22:21)
[2020-04-12 22:29] LABS: BASO % 0.5 % (0.0-1.0); EOS # 0.2 10^3/uL (0.0-0.5); EOS % 2.5 % (0.0-3.0); HEMOGLOBIN 10.7 g/dl (12.0-15.5); LYMPH # 1.6 10^3/uL (1.5-5.0); LYMPH % 18.9 % (24.0-44.0); MEAN CORPUSCULAR HEMOGLOBIN 26.2 pg (27.0-33.0); MEAN CORPUSCULAR HGB CONC 31.5 g/dl (32.0-36.5); MEAN CORPUSCULAR VOLUME 83.3 fl (80.0-96.0); MONO # 0.7 10^3/uL (0.0-0.8); MONO % 7.8 % (0.0-5.0); NEUTROPHILS # 5.7 10^3/uL (1.5-8.5); PLATELET COUNT, AUTOMATED 229 10^3/uL (150-450); RED BLOOD COUNT 4.08 10^6/uL (4.00-5.40); WHITE BLOOD COUNT 8.3 10^3/uL (4.0-10.0)
[2020-04-12] MEDS ORDERED: TRUL10IN SC (22:55)
[2020-04-12] MEDS ORDERED: META28.32 PO (22:55)
[2020-04-12] MEDS ORDERED: GLUC1KIT IM (22:55)
[2020-04-12] MEDS ORDERED: COLA100C5 PO (22:55)
[2020-04-12] MEDS ORDERED: NEUR300C PO (22:55)
[2020-04-12] MEDS ORDERED: NAPR-885 PO (22:55)
[2020-04-12] MEDS ORDERED: CALCCAP4 PO (22:55)
[2020-04-12] MEDS ORDERED: ACET-907 PO (22:55)
[2020-04-12] MEDS ORDERED: ANAS1TAB2 PO (22:55)
[2020-04-12] MEDS ORDERED: NITR4TASL SL (22:55)
--- NOTE | 2020-04-12 23:05 | REPVR ---
PROCEDURE INFORMATION: Exam: CT Chest With Contrast Exam date and time: 04/12/2020 10:24 PM Age: 69 years old Clinical indication: Mass, lump, or swelling in the chest; Additional info: Swelling to right anterior chest wall; ? Infection/mets TECHNIQUE: Imaging protocol: Computed tomography of the chest with intravenous contrast. 3D rendering (Not supervised by radiologist): MIP and/or 3D reconstructed images were created by the technologist. Radiation optimization: All CT scans at this facility use at least one of these dose optimization techniques: automated exposure control; mA and/or kV adjustment per patient size (includes targeted exams where dose is matched to clinical indication); or iterative reconstruction. Contrast material: ISOVUE 370; Contrast volume: 75 ml; Contrast route: INTRAVENOUS (IV); COMPARISON: 1. CT Chest with contrast 02/12/2019 10:[address] Chest without contrast 04/05/2018 3:08:[address] Chest with contrast 09/22/2016 9:54:36 AM FINDINGS: Thyroid: There is an 8 mm nodule in the left lobe of the thyroid gland that is stable compared to the prior CT chest on 09/22/2016 (image 8 of the axial series 202). There are surgical clips in the thyroid bed related to a prior partial thyroidectomy. Tracheobronchial tree: Intact and patent. Lungs: There is a 4 mm solid pulmonary nodule in the right lower lobe (image 57 of the axial series 201), which is stable compared to the prior CTs on 02/12/2019, 04/05/2018, and 09/22/2016 and is benign in nature given its stability over 3.5 years and no further follow-up of this nodule is necessary. No new pulmonary nodules are noted. There is no lung consolidation, ground-glass opacification, mass, or emphysematous changes. Pleural space: Normal. No pneumothorax or pleural effusion. Heart: No cardiomegaly or pericardial effusion. There are mitral annular and coronary artery calcifications. Mediastinal space: No mediastinal fluid collection or pneumomediastinum is noted. Aorta: The thoracic aorta is intact and patent. There is no thoracic aortic aneurysm, pseudoaneurysm, penetrating atherosclerotic ulcer, intramural hematoma, or dissection. Great vessels off aortic arch: The brachiocephalic artery, imaged proximal portions of the common carotid arteries, imaged proximal portions of the vertebral arteries, and subclavian arteries are intact. No stenosis or occlusion of these vessels is noted. Lymph nodes: There are subcentimeter mediastinal lymph nodes. However, no abnormally enlarged lymph nodes measuring greater than 1 cm in short axis are noted. Liver: There is a calcified granuloma in the liver. No hepatomegaly. The contour of the liver is smooth. No liver mass. Spleen: Normal. No splenomegaly is noted. Adrenals: Normal. No adrenal mass is noted. Bones/joints: There is no fracture or dislocation. No suspicious osteolytic or osteoblastic lesion. Soft tissues: Postoperative changes are noted from a bilateral mastectomy. There is an 11 mm x 11 mm x 9 mm thick-walled rim enhancing fluid collection in the subcutaneous tissues along the right anterior paramedian chest wall with surrounding subcutaneous fat stranding and overlying skin thickening (image 44 of the axial series 202), which may represent an abscess. There is reticulation of the subcutaneous tissues in the right anterior chest wall. IMPRESSION: 11 mm x 11 mm x 9 mm fluid collection in the subcutaneous tissues along the right anterior paramedian chest wall, which may represent an abscess with surrounding cellulitis. COMMENTS: Consistent with the [employer]'s Incidental Findings Committee white paper (J Am Basim Radiol 2015): In patients aged 35 years and older with an incidental thyroid nodule equal to or greater than 1.[address], MRI or extrathyroidal US, further evaluation with dedicated thyroid US is recommended for patients with normal life expectancy and without comorbidities. For smaller nodules without suspicious features, no further evaluation or follow up is recommended. Electronically signed by: Jarek Ortiz On 04/12/2020 23:05:31 PM
[2020-04-12] MEDS ORDERED: BACTRIM 160MG/800MG DS TAB PO ONE (23:15)
[2020-04-12] MEDS ORDERED: CLEO300C2 PO (23:17)
[2020-04-12 23:28] VITALS: BP 148/78
[2020-04-12] MEDS ORDERED: CLINDAMYCIN 150MG CAPSULE PO ONE (23:30)
--- NOTE | 2020-04-13 06:34 | ED PDOC ---
Post-Departure Follow-Up Shannon Tan faxed formal report of ct chest for fu Marquise Sandoval MD Apr 13, 2020 06:34
== END 2020-04-12 23:39 | disposition home or self-care (01) ==
LOC: M ED 21:22
DX: L02.213 Cutaneous abscess of chest wall (principal); L03.313 Cellulitis of chest wall; E11.9 Type 2 diabetes mellitus without complications; N17.9 Acute kidney failure, unspecified; F32.9 Major depressive disorder, single episode, unspecified; F41.9 Anxiety disorder, unspecified; K58.9 Irritable bowel syndrome, unspecified; Z85.3 Personal history of malignant neoplasm of breast; Z90.13 Acquired absence of bilateral breasts and nipples; Z88.0 Allergy status to penicillin; Z79.899 Other long term (current) drug therapy; Z79.82 Long term (current) use of aspirin; Z79.4 Long term (current) use of insulin; Z79.1 Long term (current) use of non-steroidal anti-inflammatories (NSAID)
CPT/HCPCS: 71260; 80047; 85025; 87070; 87077; 87186; 87205; 99284; Q9967

== ENCOUNTER 2020-05-08 00:58 | Emergency (ER) | payer MEDICARE, OTHER ==
[~2020-05-08] VITALS: Ht 162.6 cm; Wt 80.7 kg
[~2020-05-08 00:58] MED LIST changes: +ACET-907 PO; +ANAS1TAB2 PO; +CALCCAP4 PO; +CLEO300C2 PO; +COLA100C5 PO; +META28.32 PO; +NAPR-885 PO; +NEUR300C PO; +NITR4TASL SL; +TRUL10IN SC
[2020-05-08 01:55] LABS: BASO # 0.1 10^3/uL (0.0-0.2); BASO % 0.8 % (0.0-1.0); EOS # 0.3 10^3/uL (0.0-0.5); EOS % 3.9 % (0.0-3.0); HEMATOCRIT 33.7 % (36.0-47.0); HEMOGLOBIN 10.7 g/dl (12.0-15.5); LYMPH # 1.9 10^3/uL (1.5-5.0); LYMPH % 24.4 % (24.0-44.0); MEAN CORPUSCULAR HGB CONC 31.8 g/dl (32.0-36.5); MONO # 0.6 10^3/uL (0.0-0.8); MONO % 7.9 % (0.0-5.0); NEUTROPHILS # 4.8 10^3/uL (1.5-8.5); PLATELET COUNT, AUTOMATED 209 10^3/uL (150-450); RED BLOOD COUNT 4.11 10^6/uL (4.00-5.40); WHITE BLOOD COUNT 7.7 10^3/uL (4.0-10.0)
[2020-05-08 02:08] LABS: ALBUMIN 3.6 GM/DL (3.2-5.2); ALT/SGPT 17 U/L (12-78); BILIRUBIN,DIRECT 0.1 MG/DL (0.0-0.2); BILIRUBIN,TOTAL 0.8 MG/DL (0.2-1.0); BLOOD UREA NITROGEN 41 MG/DL (7-18); CALCIUM LEVEL 9.1 MG/DL (8.8-10.2); CARBON DIOXIDE LEVEL 27 MEQ/L (21-32); CHLORIDE LEVEL 102 MEQ/L (98-107); CK-MB VALUE MASS 1.8 NG/ML (<3.6); CPK CREATINE PHOSPHOKINASE 96 U/L (26-192); CREATININE FOR GFR 1.37 MG/DL (0.55-1.30); ETHYL ALCOHOL (ETHANOL) < 0.003 % (0.000-0.010); GLOMERULAR FILTRATION RATE 40.6 (>39); GLUCOSE, FASTING 441 MG/DL (70-100); MB/CK RELATIVE INDEX 1.88 (< OR =4); POTASSIUM SERUM 4.5 MEQ/L (3.5-5.1); SODIUM LEVEL 136 MEQ/L (136-145); TOTAL PROTEIN 7.4 GM/DL (6.4-8.2); TROPONIN I < 0.02 NG/ML (< 0.10)
--- NOTE | 2020-05-08 02:47 | REPVR ---
PROCEDURE INFORMATION: Exam: CT Head Without Contrast Exam date and time: 05/08/2020 1:34 AM Age: 70 years old Clinical indication: Injury or trauma; Fall; Concussion/head injury; Consciousness not specified TECHNIQUE: Imaging protocol: Computed tomography of the head without contrast. Radiation optimization: All CT scans at this facility use at least one of these dose optimization techniques: automated exposure control; mA and/or kV adjustment per patient size (includes targeted exams where dose is matched to clinical indication); or iterative reconstruction. COMPARISON: CT Head without contrast 04/04/2018 5:57 PM FINDINGS: Brain: There is mild cerebral atrophy. Changes of chronic white matter microvascular disease are present. No signs of a recent infarction or hemorrhage. Cerebral ventricles: No ventriculomegaly. Bones/joints: Unremarkable. No acute fracture. Paranasal sinuses: Visualized sinuses are unremarkable. No fluid levels. Mastoid air cells: Visualized mastoid air cells are well aerated. Soft tissues: Soft tissue swelling in the left posterior scalp at the vertex. No foreign bodies. IMPRESSION: Atrophy and chronic white matter changes. No acute intracranial abnormality. Electronically signed by: Vamsi Chavez On 05/08/2020 02:46:24 AM
--- NOTE | 2020-05-08 02:53 | REPVR ---
PROCEDURE INFORMATION: Exam: CT Cervical Spine Without Contrast Exam date and time: 05/08/2020 1:34 AM Age: 70 years old Clinical indication: Neck pain; Additional info: Trauma TECHNIQUE: Imaging protocol: Computed tomography images of the cervical spine without contrast. Radiation optimization: All CT scans at this facility use at least one of these dose optimization techniques: automated exposure control; mA and/or kV adjustment per patient size (includes targeted exams where dose is matched to clinical indication); or iterative reconstruction. COMPARISON: No relevant prior studies available. FINDINGS: Bones/joints: No acute fracture. Normal alignment. Facet joints are unremarkable. Discs/Spinal canal/Neural foramina: Intervertebral disc spaces are unremarkable. No spinal stenosis. Soft tissues: Unremarkable. Lungs: Lung apices are normal. IMPRESSION: No acute fracture or malalignment. Electronically signed by: Vamsi Chavez On 05/08/2020 02:53:06 AM
--- NOTE | 2020-05-08 03:20 | REPVR ---
PROCEDURE INFORMATION: Exam: CT Chest with Contrast Exam date and time: 05/08/20 (2:26am) Age: 70 years old Clinical indication: Chest pain. Fall. Altered. Cervical pain, left lower rib pain. Previous bilateral mastectomy. TECHNIQUE: Imaging protocol: Diagnostic computed tomography of the chest with intravenous contrast. Radiation optimization: All CT scans at this facility use at least one of these dose optimization techniques: automated exposure control; mA and/or kV adjustment per patient size (includes targeted exams where dose is matched to clinical indication); or iterative reconstruction. Contrast material: Iso Contrast volume: 100 ml Contrast route: IV COMPARISON: CT CHEST of 04/12/20 FINDINGS: Lungs: No consolidation. Small stable peripheral nodule (4 mm size), posterolaterally near the right lung base (Ser. 201 - Image #51). Pleural space: Unremarkable. No pneumothorax. No pleural effusions. Heart: Unremarkable. No cardiomegaly. No pericardial effusion. Aorta: Unremarkable. No aortic aneurysm. Lymph nodes: Unremarkable. No enlarged lymph nodes. Bones/joints: Unremarkable. No acute fracture. Soft tissues: Mild hazy soft tissue changes in the right anterior chest wall, to the right of midline (Ser. 201 - Image #50) (significant resolution over the past 3-4 weeks). Upper abdomen: Previous cholecystectomy. IMPRESSION: No acute findings. Resolving soft tissue inflammatory process, right anterior chest wall, to the right of midline. Electronically signed by: Tita Gaviria On 05/08/2020 03:19:47 AM
[2020-05-08] MEDS ORDERED: HumaLOG INSULIN (NovoLOG) PER UNIT SC STA (03:43)
[2020-05-08] MEDS ORDERED: NS 1,000 ML IV ONE (03:45)
--- NOTE | 2020-05-08 03:45 | REPVR ---
PROCEDURE INFORMATION: Exam: CT Abdomen and Pelvis with Contrast Exam date and time: 05/08/20 (2:27am) Age: 70 years old Clinical indication: Generalized abdominal pain. Trauma. TECHNIQUE: Imaging protocol: Computed tomography of the abdomen and pelvis with intravenous contrast. Radiation optimization: All CT scans at this facility use at least one of these dose optimization techniques: automated exposure control; mA and/or kV adjustment per patient size (includes targeted exams where dose is matched to clinical indication); or iterative reconstruction. Contrast material: Iso Contrast volume: 100 ml Contrast route: IV COMPARISON: CT ABDOMEN PELVIS of 02/12/19 FINDINGS: Liver: Normal. No solid mass. Gallbladder and bile ducts: Previous cholecystectomy. No ductal dilatation. Pancreas: Normal. No ductal dilatation. Spleen: Normal. No splenomegaly. Adrenal glands: Normal. No mass. Kidneys and ureters: Normal. No hydronephrosis. Stomach and bowel: Unremarkable. No bowel obstruction. No mucosal thickening. Appendix: No evidence of appendicitis. Other findings: Radiodense clip(s) (presumably) at the lateral margin of the ascending colon (Ser. 205 - Image #78) (not seen in 2018). Diastasis of the inferior rectus abdominus muscles again noted. Intraperitoneal space: Unremarkable. No free air. No significant fluid collection. Vasculature: Unremarkable. No abdominal aortic aneurysm. Lymph nodes: Unremarkable. No enlarged lymph nodes. Urinary bladder: Distended urinary bladder. No stones nor mass. Reproductive: Unremarkable as visualized. Bones/joints: No acute fracture. Progression of degenerative changes at the L5-S1 level. Soft tissues: Unremarkable. IMPRESSION: No acute findings. No abnormal fluid collections. No definite organ injury. Previous cholecystectomy. Electronically signed by: Tita Gaviria On 05/08/2020 03:45:16 AM
[2020-05-08 05:07] VITALS: BP 175/79
[2020-05-08 05:36] LABS: AMPHETAMINES LEVEL URINE NEGATIVE (NEGATIVE); BARBITURATES URINE NEGATIVE (NEGATIVE); BENZODIAZEPINES URINE NEGATIVE (NEGATIVE); CANNABINOIDS URINE NEGATIVE (NEGATIVE); COCAINE METABOLITE URINE NEGATIVE (NEGATIVE); METHADONE URINE NEGATIVE (NEGATIVE); OPIATES URINE NEGATIVE (NEGATIVE); PHENCYCLIDINE URINE NEGATIVE (NEGATIVE)
--- NOTE | 2020-05-08 14:29 | ECGEPIP ---
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
== END 2020-05-08 06:12 | disposition home or self-care (01) ==
LOC: M ED 00:58
DX: S00.93XA Contusion of unspecified part of head, initial encounter (principal); M54.2 Cervicalgia; W01.198A Fall on same level from slipping, tripping and stumbling with subsequent striking against other object, initial encounter; Y92.098 Other place in other non-institutional residence as the place of occurrence of the external cause; Z88.0 Allergy status to penicillin; Z79.899 Other long term (current) drug therapy; Z79.82 Long term (current) use of aspirin; Z79.1 Long term (current) use of non-steroidal anti-inflammatories (NSAID); Z79.84 Long term (current) use of oral hypoglycemic drugs
CPT/HCPCS: 70450; 71260; 72125; 74177; 80048; 80076; 80307; 81001; 82550; 82553; 84484; 85025; 93005; 99285; G0480

== ENCOUNTER 2020-05-18 11:59 | Emergency (ER) | payer MEDICARE, OTHER ==
[~2020-05-18] VITALS: Ht 162.6 cm; Wt 77.3 kg
--- NOTE | 2020-05-18 13:04 | REP ---
INDICATION: fall/dizziness COMPARISON: 05/08/2020 TECHNIQUE: Axial noncontrast images from the skull base to the thoracic inlet with coronal reformations. This CT examination was performed using the following dose reduction techniques: Automated exposure control, adjustment of mA and/or kv according to the patient's size, and use of iterative reconstruction technique. FINDINGS: Age-related atrophy with periventricular leukomalacia and microvascular ischemic changes are appreciated. The ventricles and sulci are symmetric. Rodriguez-white differentiation is maintained. There is no evidence for acute intracranial hemorrhage, mass/mass effect, pathology or infarction. No extra-axial fluid collection. Calvarium is intact. Paranasal sinuses and mastoid air cells are clear. IMPRESSION: Age related atrophy and microvascular ischemic changes. No acute intracranial hemorrhage, infarction, or mass/mass effect. <Electronically signed by Collin Gould > 05/18/20 1300
--- NOTE | 2020-05-18 13:41 | REP ---
INDICATION: fall COMPARISON: None. TECHNIQUE: Frontal view of the chest with multiple views of the left hemithorax. (5 total views) FINDINGS: Frontal view of the chest demonstrates no acute cardiopulmonary process, contusion, effusion, or pneumothorax. Multiple views of the hemithorax demonstrates no acute rib fracture/injury or pathology. IMPRESSION: No obvious acute left rib fracture. <Electronically signed by Collin Gould > 05/18/20 [id number]
[2020-05-18 16:01] LABS: HEMATOCRIT 36.5 % (36.0-47.0); HEMOGLOBIN 11.8 g/dl (12.0-15.5); MEAN CORPUSCULAR HEMOGLOBIN 26.7 pg (27.0-33.0); MEAN CORPUSCULAR HGB CONC 32.3 g/dl (32.0-36.5); MEAN CORPUSCULAR VOLUME 82.6 fl (80.0-96.0); PLATELET COUNT, AUTOMATED 244 10^3/uL (150-450); RED BLOOD COUNT 4.42 10^6/uL (4.00-5.40); WHITE BLOOD COUNT 7.7 10^3/uL (4.0-10.0)
[2020-05-18 16:37] LABS: ALBUMIN 3.7 GM/DL (3.2-5.2); BILIRUBIN,DIRECT 0.2 MG/DL (0.0-0.2); BILIRUBIN,TOTAL 0.7 MG/DL (0.2-1.0); CALCIUM LEVEL 10.1 MG/DL (8.8-10.2); CREATININE FOR GFR 1.19 MG/DL (0.55-1.30); GLOMERULAR FILTRATION RATE 47.7 (>39); POTASSIUM SERUM 5.6 MEQ/L (3.5-5.1); TOTAL PROTEIN 7.7 GM/DL (6.4-8.2)
[2020-05-18] MEDS ORDERED: ISOVUE-370 76% 100ML VIAL As Ordered ONE (16:41)
--- NOTE | 2020-05-18 17:08 | REP ---
INDICATION: fall luq pain. COMPARISON: None. TECHNIQUE: Axial contrast-enhanced images of the abdomen using 100 cc Isovue 370 intravenous contrast material with coronal and sagittal reformations. . This CT examination was performed using the following dose reduction techniques: Automated exposure control, adjustment of mA and/or kv according to the patient's size, and use of iterative reconstruction technique. FINDINGS: Lung bases are clear. Visualized heart and pericardium normal. No evidence for solid organ injury. Liver, spleen, pancreas, bilateral adrenal glands and kidneys are essentially normal. Mild symmetric chronic perinephric stranding is appreciated. Visualized portions of the small and large bowel suggest fecal stasis. Visualized abdominal aorta and vasculature demonstrate atherosclerotic changes without evidence for injury. Skeletal structures appear intact IMPRESSION: 1. No evidence for acute injury. 2. Chronic findings as described above. <Electronically signed by Collin Gould > 05/18/20 [id number]
[2020-05-18 18:56] VITALS: BP 158/70
--- NOTE | 2020-05-18 20:40 | ECGEPIP ---
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
== END 2020-05-18 18:59 | disposition home or self-care (01) ==
LOC: M ED 11:59
DX: S20.212A Contusion of left front wall of thorax, initial encounter (principal); S20.222A Contusion of left back wall of thorax, initial encounter; W01.198A Fall on same level from slipping, tripping and stumbling with subsequent striking against other object, initial encounter; Y92.092 Bedroom in other non-institutional residence as the place of occurrence of the external cause; Y93.89 Activity, other specified; Y99.8 Other external cause status; E11.9 Type 2 diabetes mellitus without complications; I11.9 Hypertensive heart disease without heart failure; F17.200 Nicotine dependence, unspecified, uncomplicated; Z88.0 Allergy status to penicillin; Z79.899 Other long term (current) drug therapy; Z79.82 Long term (current) use of aspirin; Z79.4 Long term (current) use of insulin; Z79.1 Long term (current) use of non-steroidal anti-inflammatories (NSAID)
CPT/HCPCS: 70450; 71101; 74160; 80048; 80076; 85027; 93005; 99284; Q9967

== ENCOUNTER → 2020-08-20 | Outpatient (REF) | payer MEDICARE, OTHER, MEDICAID ==
[~2020-08-20] MED LIST changes: +ASPI-569 PO; -ASPI81TAEC PO; +GABA-282 PO; -GABA-843 PO; -LISI-538 PO; +LISI20TA33 PO; -MAG400TA PO; +MAGN400T35 PO
[2020-08-20 17:18] LABS: BASO # 0.1 10^3/uL (0.0-0.2); BASO % 1.5 % (0.0-1.0); EOS # 0.2 10^3/uL (0.0-0.5); EOS % 2.9 % (0.0-3.0); HEMATOCRIT 36.7 % (36.0-47.0); HEMOGLOBIN 11.6 g/dl (12.0-15.5); LYMPH # 1.4 10^3/uL (1.5-5.0); LYMPH % 21.2 % (24.0-44.0); MEAN CORPUSCULAR HGB CONC 31.6 g/dl (32.0-36.5); MEAN CORPUSCULAR VOLUME 82.3 fl (80.0-96.0); MONO # 0.5 10^3/uL (0.0-0.8); MONO % 8.2 % (2.0-8.0); NEUTROPHILS # 4.1 10^3/uL (1.5-8.5); NEUTROPHILS % 62.8 % (36.0-66.0); PLATELET COUNT, AUTOMATED 235 10^3/uL (150-450); RED BLOOD COUNT 4.46 10^6/uL (4.00-5.40); WHITE BLOOD COUNT 6.6 10^3/uL (4.0-10.0)
[2020-08-20 17:33] LABS: BILIRUBIN,TOTAL 0.8 MG/DL (0.2-1.0); CALCIUM LEVEL 9.4 MG/DL (8.8-10.2); CREATININE FOR GFR 1.25 MG/DL (0.55-1.30); FREE T4 0.9 NG/DL (0.76-1.46); GLOMERULAR FILTRATION RATE 45.1 (>39); MAGNESIUM LEVEL 1.7 MG/DL (1.8-2.4); PERCENT SATURATION 32.2 % (13.2-45.0); POTASSIUM SERUM 4.5 MEQ/L (3.5-5.1); THYROID STIMULATING HORMONE 17.6 uIU/ML (0.358-3.740); TOTAL PROTEIN 7.5 GM/DL (6.4-8.2)
[2020-08-20 17:59] LABS: HEMOGLOBIN A1c 13.2 %
== END ==
LOC: M LAB REF 16:36
PROVIDERS: ATTEND Nurse Practitioner Family
DX: Z00.00 Encounter for general adult medical examination without abnormal findings (principal); E11.8 Type 2 diabetes mellitus with unspecified complications; E66.9 Obesity, unspecified; E55.9 Vitamin D deficiency, unspecified

== ENCOUNTER 2020-09-01 15:45 | Inpatient (IN) | payer MEDICARE, OTHER, MEDICAID ==
[~2020-09-01] VITALS: Ht 162.6 cm; Wt 77.0 kg
--- NOTE | 2020-09-01 16:35 | REP ---
INDICATION: FALL. COMPARISON: CT of the brain dated 05/18/2020. TECHNIQUE: CT of the brain without IV contrast. FINDINGS: There is no acute hemorrhage, edema, mass effect or midline shift. No subdural hematoma is identified. The cortical stripe is maintained. There is mild diffuse cortical atrophy. This is unchanged. The visualized paranasal sinuses and mastoid air cells are clear. IMPRESSION: No acute intracranial hemorrhage or subdural hematoma. No mass effect or midline shift. Cortical stripe is maintained. Mild diffuse cortical atrophy. <Electronically signed by Mayco Nova > 09/01/20 [id number]
--- NOTE | 2020-09-01 16:43 | REP ---
INDICATION: fall injury. COMPARISON: CT of the cervical spine dated 05/08/2020. TECHNIQUE: CT of the cervical spine without IV contrast. FINDINGS: The skull base, C1 and C2 are unremarkable except for mild osteoarthritis. Vertebral body heights and alignment are normal. The facets are normally aligned. No posterior element fractures are identified. Mucosal thickening in the sphenoid sinus is noted. This is unchanged. IMPRESSION: There is no fracture or listhesis. There is mucosal thickening in the sphenoid sinus. This is unchanged. <Electronically signed by Mayco Nova > 09/01/20 1640
[2020-09-01 16:44] LABS: BASO # 0.1 10^3/uL (0.0-0.2); BASO % 1.3 % (0.0-1.0); EOS # 0.2 10^3/uL (0.0-0.5); EOS % 2.3 % (0.0-3.0); HEMATOCRIT 34.7 % (36.0-47.0); HEMOGLOBIN 11.1 g/dl (12.0-15.5); LYMPH # 1.4 10^3/uL (1.5-5.0); LYMPH % 19.9 % (24.0-44.0); MEAN CORPUSCULAR VOLUME 81.3 fl (80.0-96.0); MONO # 0.6 10^3/uL (0.0-0.8); MONO % 8.2 % (2.0-8.0); NEUTROPHILS # 4.4 10^3/uL (1.5-8.5); NEUTROPHILS % 63.4 % (36.0-66.0); PLATELET COUNT, AUTOMATED 240 10^3/uL (150-450); RED BLOOD COUNT 4.27 10^6/uL (4.00-5.40)
[2020-09-01 16:57] LABS: PARTIAL THROMBOPLASTIN TIME 25.7 SECONDS (24.2-38.5); PROTHROMBIN TIME 13.4 SECONDS (12.5-14.3)
[2020-09-01 17:34] LABS: ACETAMINOPHEN LEVEL < 2.0 UG/ML (10.0-30.0); ALBUMIN 3.2 GM/DL (3.2-5.2); ALT/SGPT 14 U/L (12-78); BILIRUBIN,DIRECT 0.1 MG/DL (0.0-0.2); BILIRUBIN,TOTAL 0.6 MG/DL (0.2-1.0); BLOOD UREA NITROGEN 41 MG/DL (7-18); CARBON DIOXIDE LEVEL 26 MEQ/L (21-32); CHLORIDE LEVEL 103 MEQ/L (98-107); CK-MB VALUE MASS 1.2 NG/ML (<3.6); CPK CREATINE PHOSPHOKINASE 31 U/L (26-192); CREATININE FOR GFR 1.66 MG/DL (0.55-1.30); ETHYL ALCOHOL (ETHANOL) < 0.003 % (0.000-0.010); GLOMERULAR FILTRATION RATE 32.5 (>39); GLUCOSE, FASTING 393 MG/DL (70-100); MB/CK RELATIVE INDEX 3.87 (< OR =4); POTASSIUM SERUM 4.1 MEQ/L (3.5-5.1); SALICYLATE LEVEL < 1.7 MG/DL (5.0-30.0); SODIUM LEVEL 136 MEQ/L (136-145); TOTAL PROTEIN 6.8 GM/DL (6.4-8.2); TROPONIN I < 0.02 NG/ML (< 0.10)
[2020-09-01 17:40] LABS: OSMOLALITY SERUM 306 MOSM/KG (280-301)
--- NOTE | 2020-09-01 17:50 | REP ---
INDICATION: AMS. COMPARISON: PA and lateral chest dated 07/29/2017 and portable chest dated 04/04/2018 TECHNIQUE: Portable AP chest with the patient sitting. FINDINGS: The lung joshi are clear. Cardiac size is normal. The sheree, mediastinum and skeletal structures are unremarkable. IMPRESSION: Essentially negative portable chest. <Electronically signed by Mayco Nova > 09/01/20 1744
[2020-09-01 18:00] LABS: NT-PRO BNP 180 PG/ML (<125)
--- NOTE | 2020-09-01 18:01 | REP ---
INDICATION: abdominal distention; assess for ascites. COMPARISON: Abdomen/pelvis CT dated 05/18/2020. TECHNIQUE: Ultrasonographic images of the abdominal quadrants and midline FINDINGS: No free intraperitoneal fluid is identified. IMPRESSION: No evidence of ascites by ultrasound. <Electronically signed by Mayco Nova > 09/01/20 [id number]
[2020-09-01 19:07] LABS: AMPHETAMINES LEVEL URINE NEGATIVE (NEGATIVE); BARBITURATES URINE NEGATIVE (NEGATIVE); BENZODIAZEPINES URINE NEGATIVE (NEGATIVE); CANNABINOIDS URINE NEGATIVE (NEGATIVE); COCAINE METABOLITE URINE NEGATIVE (NEGATIVE); METHADONE URINE NEGATIVE (NEGATIVE); OPIATES URINE NEGATIVE (NEGATIVE); PHENCYCLIDINE URINE NEGATIVE (NEGATIVE)
--- NOTE | 2020-09-01 20:41 | REPVR ---
PROCEDURE INFORMATION: Exam: CT Abdomen And Pelvis Without Contrast Exam date and time: 09/01/2020 8:03 PM Age: 70 years old Clinical indication: Other: Distention; Additional info: Abdominal distention; R/O obstruction TECHNIQUE: Imaging protocol: Computed tomography of the abdomen and pelvis without contrast. Radiation optimization: All CT scans at this facility use at least one of these dose optimization techniques: automated exposure control; mA and/or kV adjustment per patient size (includes targeted exams where dose is matched to clinical indication); or iterative reconstruction. COMPARISON: CT ABD PELVIS WITH CONTRAST 05/08/2020 2:25 AM FINDINGS: Lungs: 2-3 mm noncalcified nodules right lower lobe. Findings likely postinflammatory. Liver: Normal. No mass. Gallbladder and bile ducts: There has been a cholecystectomy. Pancreas: There is diffuse pancreatic atrophy. Spleen: Normal. No splenomegaly. Adrenal glands: Normal. No mass. Kidneys and ureters: Normal. No hydronephrosis. Stomach and bowel: There is increased feces throughout the colon consistent with constipation. Appendix: No evidence of appendicitis. Intraperitoneal space: Unremarkable. No free air. No significant fluid collection. Vasculature: The aortoiliac vessels demonstrate mild atherosclerotic calcification. Lymph nodes: Unremarkable. No enlarged lymph nodes. Urinary bladder: Unremarkable as visualized. Reproductive: Unremarkable as visualized. Bones/joints: Dextroscoliosis. Mild central spinal stenosis L3-L4 and severe central spinal stenosis L4-L5. Soft tissues: Unremarkable. IMPRESSION: 1. There has been a cholecystectomy. 2. There is diffuse pancreatic atrophy. 3. There is increased feces throughout the colon consistent with constipation. Electronically signed by: Manuel Jane On 09/01/2020 20:41:47 PM
[2020-09-01 21:26] LABS: ACETONE/KETONE 1.12 MG/DL (<2.81)
[2020-09-01 21:26] LABS: ABG BASE EXCESS -2.8 (-2.0-2.0); ABG HCO3 21.9 MEQ/L (22.0-26.0); ABG O2 SATURATION 99.2 % (95.0-99.0); ABG PARTIAL PRESSURE O2 150.7 mmHg (75.0-100.0); ABG STANDARD HCO3 22.1 MEQ/L (22.0-26.0); ABG TOTAL CO2 23.1 MEQ/L (23.0-31.0); ABG pH (ARTERIAL) 7.379 UNITS (7.350-7.450)
[2020-09-01] MEDS ORDERED: ACETAMINOPHEN TAB 650MG DOSE (2X325MG) PO PRN (21:55)
[2020-09-01] MEDS ORDERED: MAALOX 30 ML SUSP *UDC PO PRN (21:55)
--- NOTE | 2020-09-01 22:11 | HPEPDOC ---
[facility] Medical History & Physical Date of Admission Sep 01, 2020 Date of Service: Sep 01, 2020 Attending Physician: LOUIE WOOD MD History and Physical CHIEF COMPLAINT: fall HISTORY OF PRESENT ILLNESS: 70 year old female with PMHx noted below presented to the ED after a fall at home. Patient state she was pending over to pick something up off her coffee table. She notes dizziness occurred while bending over, described as the room spinning around her. She states she then fell backward. She is unsure if she hit her head. She denies loss of consciousness. She states she has had other falls recently as well. She cannot recall if she felt dizzy those times. She denies any confusion recently. She does note her FSBS readings at home have been elevated in the 300s. She states she has noticed increase polydipsia and polyuria the past few days. PAST MEDICAL HISTORY: Diabetes mellitus, insulin dependent Breast cancer s/p bilateral mastectomy HTN Hypothyroidism PAST SURGICAL HISTORY: Bilateral mastectomy Left knee surgery Hernia repair Right middle toe amputation SOCIAL HISTORY: Minimal smoking history less than 1ppd for 2 years quit age 18. Denies alcohol use. Denies hx IV drug or illicit substance use. Lives at home alone. Currently no home care. Uses pill packs for her medications. FAMILY HISTORY: Mother with DM. ALLERGIES: Please see below. REVIEW OF SYSTEMS: CONSTITUTIONAL: Denies fevers, chills, night sweats, fatigue, unexpected change in weight. HEENT: Denies change in vision, change in hearing. CARDIOVASCULAR: Denies chest pain, palpitations, shortness of breath. RESPIRATORY: Denies dyspnea, cough, wheezing. GASTROINTESTINAL: Denies nausea, vomiting, abdominal pain, diarrhea, constipation, blood in stool. GENITOURINARY: Denies dysuria, urinary frequency, urinary urgency. SKIN: Denies rash, lesions. MUSCULOSKELETAL: Denies joint pain or muscle aches. NEUROLOGICAL: Per HPI. Denies headache. PSYCHIATRIC: Denies change in mood. HOME MEDICATIONS: Please see below. PHYSICAL EXAMINATION: VITAL SIGNS: See below HEENT: Normocephalic, atraumatic, sclera anicteric, EOMI, moist mucous membranes NECK: Supple, trachea midline, no lymphadenopathy, no JVD CARDIOVASCULAR: Regular rate and rhythm, normal S1 and S2. No murmurs, rubs, or gallops RESPIRATORY: Clear to auscultation bilaterally with equal air entry bilaterally. No wheezing, rhonchi, or rales. ABDOMEN: Obese, soft, nontender, somewhat distended, bowel sounds present. EXTREMITIES: No cyanosis or edema. Pulses 2+/4 in bilateral upper and lower extremities SKIN: [place], warm, dry NEUROLOGIC: Alert and oriented x3 to person, place and time. No focal deficits appreciated PSYCHIATRIC: Mood and affect appropriate LABORATORY DATA: See below. IMAGING: (impressions per radiologist report) - Head CT No acute intracranial hemorrhage or subdural hematoma. No mass effect or midline shift. Cortical stripe is maintained. Mild diffuse cortical atrophy. - CT C spine There is no fracture or listhesis. There is mucosal thickening in the sphenoid sinus. This is unchanged. - U/S abdomen No evidence of ascites by ultrasound. - CXR Essentially negative portable chest. - CT abdomen/pelvis 1. There has been a cholecystectomy. 2. There is diffuse pancreatic atrophy. 3. There is increased feces throughout the colon consistent with constipation. MICROBIOLOGY: Please see below. ASSESSMENT: 70 year old female with PMHx including DM, HTN, hypothyroidism, and frequent falls, presented to the ED after fall today at home, found to be hyperglycemic admitted for further workup of possible presyncope and evaluation by PT/OT for frequent falls. PLAN: 1. Fall secondary to presyncope vs mechanical fall - Pt reports dizziness prior to fall. check orthostatic VS, monitor on TM, PT eval for vertigo - Pt reports hx of murmur although not appreciated on my exam, ordered echocardiogram - PT/OT eval for balance and generalized weakness. Uses a walker at baseline 2. ALLA - etiology unclear, may contribute to fall. Plasma osm elevated. - UA shows positive for glucose only. urine osm and electrolytes pending. - renal U/S ordered - avoid nephrotoxic agents. 3. Diabetes mellitus - hyperglycemic on admission, pt states does not follow diabetic diet - consistent carb diet, SSI ACHS, hypoglycemic protocol, diabetic teaching ordered - Levemir 30 units qhs and 60 units qam, slightly lower than home dose to accommodate for diet 4. HTN - continue home lisinopril and chlorthalidone 5. Hypothyroidism - continue home levothyroxine - TSH elevated, check free T4. Clinically euthyroid 6. Chronic pain - continue home duloxetine and gabapentin. Hold home naproxen DVT prophylaxis: sc heparin Disposition: admitted inpatient to med/surg expect greater than 2 midnights stay Vital Signs Vital Signs Date Time Temp Pulse Resp B/P (MAP) Pulse Ox O2 Delivery O2 Flow Rate FiO2 09/01/20 22:00 72 18 156/72 (100) 99 09/01/20 19:00 Room Air 09/01/20 15:59 98.7 Laboratory Data Labs 24H Laboratory Tests 2 09/01/20 16:05: Bedside Glucose (Misc Panel) 360H 09/01/20 16:19: Immature Granulocyte % (Auto) 4.9H, Neutrophils (%) (Auto) 63.4, Lymphocytes (%) (Auto) 19.9L, Monocytes (%) (Auto) 8.2H, Eosinophils (%) (Auto) 2.3, Basophils (%) (Auto) 1.3H, Neutrophils # (Auto) 4.4, Lymphocytes # (Auto) 1.4L, Monocytes # (Auto) 0.6, Eosinophils # (Auto) 0.2, Basophils # (Auto) 0.1, Nucleated Red Blood Cells % (auto) 0.0, Prothrombin Time 13.4, Prothromb Time International Ratio 1.00, Activated Partial Thromboplast Time 25.7, Anion Gap 7L, Glomerular Filtration Rate 32.5L, Osmolality 306H, Lactic Acid Level 1.8, Calcium Level 9.0, Total Bilirubin 0.6, Direct Bilirubin 0.1, Aspartate Amino Transf (AST/SGOT) 5L, Alanine Aminotransferase (ALT/SGPT) 14, Alkaline Phosphatase 82, Ammonia < 10, Total Creatine Kinase 31, Creatine Kinase MB 1.2, Creatine Kinase MB Relative Index 3.87, Troponin I < 0.02, RL-Vbv-N-Type Natriuretic Peptide 180H, Total Protein 6.8, Albumin 3.2, Albumin/Globulin Ratio 0.9L, Thyroid Stimulating Hormone (TSH) 11.100H, Salicylates Level < 1.7L, Acetaminophen Level < 2.0L, Ethyl Alcohol Level < 0.003, B-Hydroxybutyrate 1.12 09/01/20 18:25: Urine Color YELLOW, Urine Appearance CLEAR, Urine pH 5.0, Urine Specific [place] 1.017, Urine Protein NEGATIVE, Urine Glucose (UA) 3+H, Urine Ketones NEGATIVE, Urine Blood NEGATIVE, Urine Nitrite NEGATIVE, Urine Bilirubin NEGATIVE, Urine Urobilinogen 0.2, Urine Leukocyte Esterase NEGATIVE, Urine WBC (Auto) 0, Urine RBC (Auto) 0, Urine Hyaline Casts (Auto) 5, Urine Bacteria (Auto) NEGATIVE, Urine Squamous Epithelial Cells 0, Urine Sperm (Auto) , Urine Opiates Screen NEGATIVE, Urine Methadone Screen NEGATIVE, Urine Barbiturates Screen NEGATIVE, Urine Phencyclidine Screen NEGATIVE, Urine Amphetamines Screen NEGATIVE, Urine Benzodiazepines Screen NEGATIVE, Urine Cocaine Metabolite Screen NEGATIVE, Urine Cannabinoids Screen NEGATIVE 09/01/20 21:12: Blood Gas Bicarbonate Standard 22.1, Arterial Blood pH 7.379, Arterial Blood Partial Pressure CO2 38.0, Arterial Blood Partial Pressure O2 150.7H, Arterial Blood Total CO2 23.1, Arterial Blood HCO3 21.9L, Arterial Blood Base Excess - 2.8L, Arterial Blood Oxygen Saturation 99.2H 09/01/20 21:27: CBC/BMP Laboratory Tests 09/01/20 16:19 Home Medications Scheduled Anastrozole (Anastrozole) 1 Mg Tablet, 1 MG PO DAILY Aspirin (Aspirin EC) 81 Mg Tabec, 81 MG PO DAILY Calcium Carbonate/Vitamin D3 (Calcium 600-Vit D3 400 Tablet) 1 Each Tablet, 1 TAB PO DAILY Chlorthalidone (Chlorthalidone) 25 Mg Tab, 25 MG PO DAILY Docusate Sodium (Docusate Sodium) 100 Mg Capsule, 100 MG PO DAILY Dulaglutide (Trulicity) 0.75 Mg/0.5 Ml Pen.injctr, 0.75 MG SC QWEEK MONDAYS Duloxetine Hcl (Duloxetine HCl) 30 Mg Cap, 30 MG PO DAILY Ergocalciferol (Vitamin D2) (Vitamin D2) 50,000 Units Cap, 50,000 UNITS PO QWEEK WEDNESDAYS Ferrous Sulfate (Ferrous Sulfate) 325 Mg Tab, 325 MG PO DAILY Gabapentin (Neurontin) 300 Mg Capsule, 300 MG PO TID Insulin Glargine,Hum.rec.anlog (Toujeo Solostar) 300 Unit/Ml Inj, 80 UNIT SC DAILY Insulin Glargine,Hum.rec.anlog (Toujeo Solostar) 300 Unit/Ml Inj, 30 UNIT SC QHS Insulin Lispro (Humalog) 100 Unit/Ml Inj, 1 DOSE SC AC PER SLIDING SCALE Levothyroxine Sodium (Synthroid) 137 Mcg Tab, 137 MCG PO DAILY Lisinopril (Lisinopril) 20 Mg Tab, 20 MG PO BID Mupirocin (Mupirocin) 2 % Oint...g., 1 DOSE EXT DAILY USES ON FEET AND TOES Psyllium Husk (with Sugar) (Metamucil Powder) 575 Gm Powder, 1 PKT PO DAILY Rosuvastatin Calcium (Crestor) 40 Mg Tab, 40 MG PO QPM TAKES AT 1800 Scheduled PRN Glucagon,Human Recombinant (Glucagon Emergency Kit) 1 Mg Vial, 1 MG IM ASDIRECTED PRN for LOW BLOOD SUGAR Naproxen (Naproxen) 500 Mg Tablet.dr, 500 MG PO BID PRN for PAIN Nitroglycerin (Nitrostat) 0.4 Mg Tab.subl, 0.4 MG SL NITRO PRN for CHEST PAIN Allergies Coded Allergies: Penicillins (Verified Allergy, Intermediate, "flips out", hives, 05/08/20) GME ATTESTATION GME ATTESTATION My faculty preceptor for this patient encounter was physically present during the encounter and was fully available. All aspects of the patient interview, examination, medical decision making process, and medical care plan development were reviewed and approved by the faculty preceptor. The faculty preceptor is aware and concurs with the plan as stated in the body of this note and will attest to such by his/her cosignature. ATTENDING NOTE IBear, have independently examined this patient and performed my own physical exam, as well as reviewed the documentation and edited where necessary. I have discussed in detail with the resident / student the findings and plan of treatment as documented by the resident / student and edited their note. I agree with their findings and treatment plan and have edited their documentation. I will continue to follow the patient during this hospital stay. JACKIE CORTES D.O. Sep 01, 2020 22:11 LOUIE WOOD MD Sep 02, 2020 04:31
[2020-09-01 22:14] LABS: RSV AMPLIFICATION NEGATIVE (NEGATIVE)
--- NOTE | 2020-09-01 22:19 | ECGEPIP ---
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
[2020-09-01] MEDS ORDERED: GLUCAGON INJ 1MG VIAL SC PRN (22:50)
[2020-09-01] MEDS ORDERED: GLUCOSE 4GM CHEW TABLET PO PRN (22:50)
[2020-09-01] MEDS ORDERED: DEXTROSE 50% 50 ML SYRINGE IV PRN (22:50)
[2020-09-01] MEDS: LEVEMIR (INSULIN DETEMIR) 1 UNITS/0.01ML SC SCH (23:14)
[2020-09-01] MEDS ORDERED: CALC600T64 PO (23:16)
[2020-09-01] MEDS ORDERED: NITR4TASL SL (23:16)
[2020-09-01] MEDS ORDERED: ANAS1TAB2 PO (23:16)
[2020-09-01] MEDS ORDERED: VITA50005 PO (23:16)
[2020-09-01] MEDS ORDERED: MUPI2OI EXT (23:16)
[2020-09-01] MEDS ORDERED: DOCU100C16 PO (23:16)
[2020-09-01] MEDS ORDERED: TRUL10IN SC (23:16)
[2020-09-01] MEDS ORDERED: NAPR500T6 PO (23:16)
[2020-09-02 00:19] LABS: FREE T4 0.99 NG/DL (0.76-1.46)
[2020-09-02 01:05] VITALS: BP 145/89
--- NOTE | 2020-09-02 01:32 | REPVR ---
PROCEDURE INFORMATION: Exam: US Retroperitoneal Limited, Kidneys Exam date and time: 09/02/2020 12:56 AM Age: 70 years old Clinical indication: Abnormal findings; Abnormal lab test; Abnormal kidney function lab tests; Additional info: [place] TECHNIQUE: Imaging protocol: Real-time ultrasound of the retroperitoneum with image documentation. Examination was focused on the kidneys. COMPARISON: Abdomen, limited US 09/01/2020 5:11 PM FINDINGS: Right kidney measures 11.7 cm in length. Left kidney measures 11.8 cm in length. Renal parenchymal echotexture and cortical thickness are normal. No solid renal mass, cyst or hydronephrosis. No shadowing, echogenic foci suggestive of stones. Bladder is unremarkable. IMPRESSION: Unremarkable ultrasound of the kidneys and bladder. Electronically signed by: Hernan Schmitt On 09/02/2020 01:32:18 AM
[2020-09-02 02:00] VITALS: BP_SYST 120; BP_SYST 126; BP_DIAS 54; BP_DIAS 65; BP_DIAS 67
[2020-09-02] MEDS: LEVOTHYROXINE 137MCG TABLET (0.137MG) PO SCH (05:35)
[2020-09-02] MEDS: HEPARIN SOD (PORCINE) 5000UNITS/ML 1ML VIAL/SYRINGE SC SCH ×3 (05:35→21:03)
[2020-09-02 06:00] VITALS: BP 113/68
[2020-09-02 06:01] VITALS: BP_SYST 114; BP_SYST 118; BP_SYST 120; BP_DIAS 57; BP_DIAS 63; BP_DIAS 67
[2020-09-02 06:29] LABS: POTASSIUM RANDOM URINE 19.7 MEQ/L
[2020-09-02 06:44] LABS: HEMATOCRIT 32.4 % (36.0-47.0); HEMOGLOBIN 10.3 g/dl (12.0-15.5); MEAN CORPUSCULAR HEMOGLOBIN 25.9 pg (27.0-33.0); MEAN CORPUSCULAR HGB CONC 31.8 g/dl (32.0-36.5); MEAN CORPUSCULAR VOLUME 81.4 fl (80.0-96.0); PLATELET COUNT, AUTOMATED 249 10^3/uL (150-450); RED BLOOD COUNT 3.98 10^6/uL (4.00-5.40); WHITE BLOOD COUNT 6.6 10^3/uL (4.0-10.0)
[2020-09-02 06:59] LABS: CALCIUM LEVEL 9.1 MG/DL (8.8-10.2); CREATININE FOR GFR 1.34 MG/DL (0.55-1.30); GLOMERULAR FILTRATION RATE 41.6 (>39); POTASSIUM SERUM 4.1 MEQ/L (3.5-5.1)
[2020-09-02] MEDS ORDERED: CHLORTHALIDONE 25 MG TAB PO SCH (09:00)
[2020-09-02] MEDS ORDERED: LEVEMIR (INSULIN DETEMIR) 1 UNITS/0.01ML SC SCH ×2 (09:00)
[2020-09-02] MEDS: DOCUSATE SODIUM 100MG CAPSULE PO SCH (09:16)
[2020-09-02] MEDS: HumaLOG INSULIN (NovoLOG) PER UNIT SC SCH ×4 (09:16→21:00)
[2020-09-02] MEDS: GABAPENTIN 300 MG CAP PO SCH ×3 (09:16→21:03)
[2020-09-02] MEDS: FERROUS SULFATE 325MG TAB PO SCH (09:16)
[2020-09-02] MEDS: ASPIRIN 81MG ENTERIC TABLET PO SCH (09:17)
[2020-09-02] MEDS: METAMUCIL (PSYLLIUM) PACKET PO SCH (09:17)
[2020-09-02] MEDS: DULoxetine 30 MG CAP (CYMBALTA) PO SCH (09:18)
[2020-09-02 14:00] VITALS: BP 128/65
--- NOTE | 2020-09-02 16:52 | IPNPDOC ---
Subjective Date Seen The patient was seen on 09/02/20. Subjective Chief Complaint/HPI continues to complain of dizziness. She complains about the room spinning with some nausea , no vomiting. Objective Physical Examination General Exam: Positive: Alert, Cooperative, No Acute Distress Eye Exam: Positive: PERRLA, Conjunctiva & lids normal, EOMI; Negative: Sclera icteric Neck Exam: Positive: Supple; Negative: JVD, thyromegaly Chest Exam: Positive: Clear to auscultation, Normal air movement Heart Exam: Positive: Rate Normal, Regular Rhythm, Normal S1, Normal S2; Negative: Murmurs, Rubs Abdomen Exam: Positive: Normal bowel sounds, Soft; Negative: Tenderness, Hepatospenomegaly Extremity Exam: Negative: Clubbing, Cyanosis, Edema Assessment /Plan Assessment 70 year old female with PMHx including DM, HTN, hypothyroidism, and frequent falls, presented to the ED after fall today at home, found to be hyperglycemic admitted for further workup of possible presyncope and evaluation by PT/OT for frequent falls. Dizziness/Fall secondary to presyncope vs mechanical fall vs Vertigo telemetry, Echo, orthostatic vital changes are negative. PT/OT for vestibular function also. ALLA likely due to osmotic diuresis and dehydration. improving. Diabetes mellitus with neuropathy consistent carb diet, SSI ACHS, hypoglycemic protocol, diabetic teaching ordered Continue levemir and lispro. HTN Lisinopril continued but may need to reduce dose. Chlorthalidone stopped Hypothyroidism levothyroxine Bilateral breast cancer. Left in 2008 s/p left radical mastectomy and chemotherapy and adjuvant therapy, right breast cancer in 2014 s/p right mastectomy in 2019 had open sore along the incision line. Chronic pain continue home duloxetine and gabapentin. Hold home naproxen Plan/VTE VTE Prophylaxis Ordered?: Yes VS, I&O, 24H, Fishbone Vital Signs/I&O Vital Signs Date Time Temp Pulse Resp B/P (MAP) Pulse Ox O2 Delivery O2 Flow Rate FiO2 09/02/20 14:00 98.0 66 16 128/65 (86) 100 Room Air I&O- Last 24 Hours up to 6 AM 09/02/20 07:00 Intake Total 240 ml Output Total 400 ml Balance -160 ml Laboratory Data 24H LABS Laboratory Tests 2 09/01/20 18:25: Urine Color YELLOW, Urine Appearance CLEAR, Urine pH 5.0, Urine Specific [place] 1.017, Urine Protein NEGATIVE, Urine Glucose (UA) 3+H, Urine Ketones NEGATIVE, Urine Blood NEGATIVE, Urine Nitrite NEGATIVE, Urine Bilirubin NEGATIVE, Urine Urobilinogen 0.2, Urine Leukocyte Esterase NEGATIVE, Urine WBC (Auto) 0, Urine RBC (Auto) 0, Urine Hyaline Casts (Auto) 5, Urine Bacteria (Auto) NEGATIVE, Urine Squamous Epithelial Cells 0, Urine Sperm (Auto) , Urine Opiates Screen NEGATIVE, Urine Methadone Screen NEGATIVE, Urine Barbiturates Screen NEGATIVE, Urine Phencyclidine Screen NEGATIVE, Urine Amphetamines Screen NEGATIVE, Urine Benzodiazepines Screen NEGATIVE, Urine Cocaine Metabolite Screen NEGATIVE, Urine Cannabinoids Screen NEGATIVE 09/01/20 21:12: Blood Gas Bicarbonate Standard 22.1, Arterial Blood pH 7.379, Arterial Blood Partial Pressure CO2 38.0, Arterial Blood Partial Pressure O2 150.7H, Arterial Blood Total CO2 23.1, Arterial Blood HCO3 21.9L, Arterial Blood Base Excess - 2.8L, Arterial Blood Oxygen Saturation 99.2H 09/01/20 21:27: Coronavirus (COVID-19)(PCR) NEGATIVE, Influenza Type A (RT-PCR) NEGATIVE, Influenza Type B (RT-PCR) NEGATIVE, Respiratory Syncytial Virus (PCR) NEGATIVE 09/01/20 23:08: Bedside Glucose (Misc Panel) 227H 09/02/20 01:19: Bedside Glucose (Misc Panel) 192H 09/02/20 05:35: Urine Osmolality 562, Urine Random Creatinine 136.0, Urine Random Sodium 65, Urine Random Potassium 19.7 09/02/20 06:25: Nucleated Red Blood Cells % (auto) 0.0, Anion Gap 4L, Glomerular Filtration Rate 41.6, Calcium Level 9.1, Magnesium Level 2.0 09/02/20 11:27: Bedside Glucose (Misc Panel) 230H 09/02/20 16:34: Bedside Glucose (Misc Panel) 107 CBC/BMP Laboratory Tests 09/02/20 06:25 FLORY LLANES MD Sep 02, 2020 16:52
[2020-09-02] MEDS: LEVEMIR (INSULIN DETEMIR) 1 UNITS/0.01ML SC SCH (21:02)
[2020-09-02] MEDS: ROSUVASTATIN 10 MG TAB (CRESTOR) PO SCH (21:03)
[2020-09-02 22:00] VITALS: BP 153/70
[2020-09-03] MEDS: LEVOTHYROXINE 137MCG TABLET (0.137MG) PO SCH (05:54)
[2020-09-03] MEDS: HEPARIN SOD (PORCINE) 5000UNITS/ML 1ML VIAL/SYRINGE SC SCH ×3 (05:54→22:57)
[2020-09-03 06:00] VITALS: BP 126/63
[2020-09-03 06:20] LABS: HEMATOCRIT 32.1 % (36.0-47.0); HEMOGLOBIN 10.3 g/dl (12.0-15.5); MEAN CORPUSCULAR HEMOGLOBIN 26.5 pg (27.0-33.0); MEAN CORPUSCULAR HGB CONC 32.1 g/dl (32.0-36.5); MEAN CORPUSCULAR VOLUME 82.5 fl (80.0-96.0); PLATELET COUNT, AUTOMATED 272 10^3/uL (150-450); RED BLOOD COUNT 3.89 10^6/uL (4.00-5.40); WHITE BLOOD COUNT 6.9 10^3/uL (4.0-10.0)
[2020-09-03 06:42] LABS: CALCIUM LEVEL 9.1 MG/DL (8.8-10.2); CREATININE FOR GFR 1.06 MG/DL (0.55-1.30); GLOMERULAR FILTRATION RATE 54.6 (>39); POTASSIUM SERUM 4.1 MEQ/L (3.5-5.1)
[2020-09-03] MEDS: MOM 30ML SUSPENSION UDC PO PRN (08:15)
[2020-09-03] MEDS: ASPIRIN 81MG ENTERIC TABLET PO SCH (08:15)
[2020-09-03] MEDS: METAMUCIL (PSYLLIUM) PACKET PO SCH (08:15)
[2020-09-03] MEDS: GABAPENTIN 300 MG CAP PO SCH ×3 (08:16→22:56)
[2020-09-03] MEDS: LEVEMIR (INSULIN DETEMIR) 1 UNITS/0.01ML SC SCH ×2 (08:16→22:56)
[2020-09-03] MEDS: FERROUS SULFATE 325MG TAB PO SCH (08:16)
[2020-09-03] MEDS: DOCUSATE SODIUM 100MG CAPSULE PO SCH (08:16)
[2020-09-03] MEDS: DULoxetine 30 MG CAP (CYMBALTA) PO SCH (08:16)
[2020-09-03] MEDS: HumaLOG INSULIN (NovoLOG) PER UNIT SC SCH ×4 (08:17→22:52)
--- NOTE | 2020-09-03 11:00 | ECHO ---
DATE OF PROCEDURE: 09/02/2020 Age: 70 Gender: Female Height: 163 cm Weight: 77 kg REFERRING PHYSICIAN: Nuzhat Domingo DO. INDICATION: Syncope. MEASUREMENTS: IVS 1.2 cm LV 3.5 cm LVPW 1.2 cm LA 3.4 cm Aorta 2.7 cm IVC 1.7 cm Mitral E wave velocity 112 A wave 119 E prime septal 7.2 E prime lateral 8.2 FINDINGS: This study is of acceptable technical quality. Patient is in sinus rhythm. Left ventricle is normal size. Mild left ventricular hypertrophy is present. Estimated LVEF approximately 70%. No segmental wall motion abnormalities are appreciated. Right ventricle is also normal size and systolic function. Both atria appear normal. There are degenerative abnormalities of aortic valve with trace sclerosis. There are also prominent degenerative abnormalities of mitral valve with at least mitral annular calcifications at the base of posterior mitral leaflet. Tricuspid and pulmonic valves appear normal. No pericardial effusion is noted. Inferior vena cava is normal size and appropriately collapses with inspiration. Aortic root and aortic arch appear normal. Abdominal aorta was not well seen. Doppler interrogation reveals no aortic stenosis or insufficiency. There is trace mitral and tricuspid insufficiency. Mitral inflow pattern and tissue Doppler imaging of mitral annulus revealed grade 1 diastolic dysfunction. CONCLUSIONS: 1. Study is of acceptable technical quality, patient is in sinus rhythm. 2. Normal LV size with mild LVH and preserved LV systolic function. Estimated LVEF 70%. Grade 1 diastolic dysfunction. 3. Aortic sclerosis but no stenosis or insufficiency. 4. Degenerative abnormalities of mitral valve with no significant stenosis and trace insufficiency. 5. Normal central venous pressure. 6. Unable to estimate pulmonary artery pressure but no signs to suggest pulmonary hypertension. COMMENT: No findings to explain syncopal event. MTDD
[2020-09-03] MEDS ORDERED: BISACODYL 10 MG SUPP PR ONE (11:40)
--- NOTE | 2020-09-03 11:42 | IPNPDOC ---
Subjective Date Seen The patient was seen on 09/03/20. Subjective Chief Complaint/HPI complains of constipation. No pain, feels bloated, Reports dizziness is better. working with PT. Objective Physical Examination General Exam: Positive: Alert, Cooperative, No Acute Distress Eye Exam: Positive: PERRLA, Conjunctiva & lids normal, EOMI; Negative: Sclera icteric Neck Exam: Positive: Supple; Negative: JVD, thyromegaly Chest Exam: Positive: Clear to auscultation, Normal air movement Heart Exam: Positive: Rate Normal, Regular Rhythm, Normal S1, Normal S2; Negative: Murmurs, Rubs Abdomen Exam: Positive: Normal bowel sounds, Soft; Negative: Tenderness, Hepatospenomegaly Extremity Exam: Negative: Clubbing, Cyanosis, Edema Assessment /Plan Assessment 70 year old female with PMHx including DM, HTN, hypothyroidism, breast cancer, and frequent falls, presented to the ED after fall today at home, found to be h yperglycemic admitted for further workup of possible presyncope and evaluation by PT/OT for frequent falls. Dizziness/Fall secondary to presyncope vs mechanical fall vs Vertigo 48 hour telemetry no arrhythmias noted. Echo, orthostatic vital changes are negative. PT/OT for vestibular function no abnormality ALLA likely due to osmotic diuresis and dehydration. improved Diabetes mellitus with neuropathy consistent carb diet, SSI ACHS, hypoglycemic protocol, diabetic teaching ordered Continue levemir and lispro. HTN lisinopril dose reduced. Chlorthalidone stopped Hypothyroidism levothyroxine Bilateral breast cancer. Left in 2008 s/p left radical mastectomy and chemotherapy and adjuvant therapy, right breast cancer in 2014 s/p right mastectomy in 2019 had open sore along the incision line. Has a recurring wound at the incision line of the right scar. Needs follow up with oncology. This may be a cancer recurrence. At present the wound is scabbed over and dry. Chronic pain continue home duloxetine and gabapentin. Hold home naproxen Dispo : Home with services. Plan/VTE VTE Prophylaxis Ordered?: Yes VS, I&O, 24H, Fishbone Vital Signs/I&O Vital Signs Date Time Temp Pulse Resp B/P (MAP) Pulse Ox O2 Delivery O2 Flow Rate FiO2 09/03/20 06:00 97.6 72 18 126/63 (84) 95 Room Air I&O- Last 24 Hours up to 6 AM 09/03/20 06:00 Intake Total 630 ml Output Total 600 ml Balance 30 ml Laboratory Data 24H LABS Laboratory Tests 2 09/02/20 16:34: Bedside Glucose (Misc Panel) 107 09/02/20 20:12: Bedside Glucose (Misc Panel) 164H 09/03/20 05:49: Nucleated Red Blood Cells % (auto) 0.0, Anion Gap 4L, Glomerular Filtration Rate 54.6, Calcium Level 9.1 CBC/BMP Laboratory Tests 09/03/20 05:49 FLORY LLANES MD Sep 03, 2020 11:42
[2020-09-03 14:00] VITALS: BP 125/61
[2020-09-03 22:00] VITALS: BP 126/67
[2020-09-03] MEDS: ROSUVASTATIN 10 MG TAB (CRESTOR) PO SCH (22:56)
[2020-09-04] MEDS: HEPARIN SOD (PORCINE) 5000UNITS/ML 1ML VIAL/SYRINGE SC SCH ×3 (05:45→21:37)
[2020-09-04] MEDS: LEVOTHYROXINE 137MCG TABLET (0.137MG) PO SCH (05:45)
[2020-09-04 06:00] VITALS: BP 127/61
[2020-09-04 06:06] LABS: HEMATOCRIT 32.7 % (36.0-47.0); HEMOGLOBIN 10.4 g/dl (12.0-15.5); MEAN CORPUSCULAR HEMOGLOBIN 26.1 pg (27.0-33.0); MEAN CORPUSCULAR HGB CONC 31.8 g/dl (32.0-36.5); MEAN CORPUSCULAR VOLUME 82.2 fl (80.0-96.0); PLATELET COUNT, AUTOMATED 258 10^3/uL (150-450); RED BLOOD COUNT 3.98 10^6/uL (4.00-5.40); WHITE BLOOD COUNT 7.7 10^3/uL (4.0-10.0)
[2020-09-04 06:25] LABS: BLOOD UREA NITROGEN 35 MG/DL (7-18); CALCIUM LEVEL 8.8 MG/DL (8.8-10.2); CARBON DIOXIDE LEVEL 26 MEQ/L (21-32); CHLORIDE LEVEL 109 MEQ/L (98-107); CREATININE FOR GFR 0.96 MG/DL (0.55-1.30); GLOMERULAR FILTRATION RATE > 60.0 (>39); GLUCOSE, FASTING 201 MG/DL (70-100); POTASSIUM SERUM 4.3 MEQ/L (3.5-5.1); SODIUM LEVEL 139 MEQ/L (136-145)
[2020-09-04 08:30] VITALS: BP 124/68
[2020-09-04] MEDS: HumaLOG INSULIN (NovoLOG) PER UNIT SC SCH ×4 (09:19→21:00)
[2020-09-04] MEDS: GABAPENTIN 300 MG CAP PO SCH ×2 (09:45→21:36)
[2020-09-04] MEDS: ASPIRIN 81MG ENTERIC TABLET PO SCH (09:45)
[2020-09-04] MEDS: DULoxetine 30 MG CAP (CYMBALTA) PO SCH (09:45)
[2020-09-04] MEDS: FERROUS SULFATE 325MG TAB PO SCH (09:45)
[2020-09-04] MEDS: DOCUSATE SODIUM 100MG CAPSULE PO SCH (09:45)
[2020-09-04] MEDS: LEVEMIR (INSULIN DETEMIR) 1 UNITS/0.01ML SC SCH ×2 (09:46→21:37)
--- NOTE | 2020-09-04 10:33 | IPNPDOC ---
Subjective Date Seen The patient was seen on 09/04/20. Subjective Chief Complaint/HPI Continues to complain of dizziness on ambulating and standing. She complains of the room spinning around her. Had a bowel movement yesterday. Sugars better controlled. Objective Physical Examination General Exam: Positive: Alert, Cooperative, No Acute Distress Eye Exam: Positive: PERRLA, Conjunctiva & lids normal, EOMI; Negative: Sclera icteric Neck Exam: Positive: Supple; Negative: JVD, thyromegaly Chest Exam: Positive: Clear to auscultation, Normal air movement Heart Exam: Positive: Rate Normal, Regular Rhythm, Normal S1, Normal S2; Negative: Murmurs, Rubs Abdomen Exam: Positive: Normal bowel sounds, Soft; Negative: Tenderness, Hepatospenomegaly Extremity Exam: Negative: Clubbing, Cyanosis, Edema Assessment /Plan Assessment Patient is a 70 year old female with PMHx including DM with neuropathy, HTN, hypothyroidism, breast cancer, and frequent falls, presented to the ED after fall today at home, found to be hyperglycemic admitted for further workup of possible presyncope and evaluation by PT/OT for frequent falls. Dizziness/Fall secondary to presyncope vs mechanical fall vs Vertigo continues to have symptoms. 48 hour telemetry no arrhythmias noted. Echo:1. Study is of acceptable technical quality, patient is in sinus rhythm. 2. Normal LV size with mild LVH and preserved LV systolic function. Estimated LVEF 70%. Grade 1 diastolic dysfunction. 3. Aortic sclerosis but no stenosis or insufficiency. 4. Degenerative abnormalities of mitral valve with no significant stenosis and trace insufficiency. 5. Normal central venous pressure. 6. Unable to estimate pulmonary artery pressure but no signs to suggest pulmonary hypertension. orthostatic vital changes are negative. PT/OT for vestibular function no abnormality Will get MRI brain to rule out post circulation or cerebellar stroke. Patient lives alone. Patient has complications that will need close monitoring that can be best provided in acute inpatient rehab. I feel she would benefit from 3 hours of intensive therapy and can tolerate it. ALLA likely due to osmotic diuresis and dehydration. improved after better sugar control. Diabetes mellitus with neuropathy adn PAD with 1 toe amputation in the right foot consistent carb diet, SSI ACHS, hypoglycemic protocol, diabetic teaching ordered Continue levemir and lispro. HTN was having lowish Bp in hospital now in normal range with out any hypertensives. lisinopril dose reduced with hold parameters. She may be able to come off antihypertensives. Chlorthalidone stopped Hypothyroidism levothyroxine Bilateral breast cancer. Left in 2008 s/p left radical mastectomy and chemotherapy and adjuvant therapy, right breast cancer in 2014 s/p right mastectomy in 2019 had open sore along the incision line. Has a recurring wound at the incision line of the right scar. Needs follow up with oncology. This may be a cancer recurrence. At present the wound is scabbed over and dry. Chronic pain continue home duloxetine and gabapentin. Hold home naproxen gabapentin dose reduced. Plan/VTE VTE Prophylaxis Ordered?: Yes VS, I&O, 24H, Fishbone Vital Signs/I&O Vital Signs Date Time Temp Pulse Resp B/P (MAP) Pulse Ox O2 Delivery O2 Flow Rate FiO2 09/04/20 08:30 97.6 68 16 124/68 (86) 95 Room Air I&O- Last 24 Hours up to 6 AM 09/04/20 06:00 Intake Total 1590 ml Output Total 400 ml Balance 1190 ml Laboratory Data 24H LABS Laboratory Tests 2 09/03/20 11:24: Bedside Glucose (Misc Panel) 242H 09/03/20 15:00: Methicillin-Resist S.aureus DNA PCR NOT DETECTED 09/03/20 16:28: Bedside Glucose (Misc Panel) 255H 09/03/20 19:51: Bedside Glucose (Misc Panel) 246H 09/04/20 05:43: Nucleated Red Blood Cells % (auto) 0.0, Anion Gap 4L, Glomerular Filtration Rate > 60.0, Calcium Level 8.8 CBC/BMP Laboratory Tests 09/04/20 05:43 FLORY LLANES MD Sep 04, 2020 10:33
[2020-09-04] MEDS: METAMUCIL (PSYLLIUM) PACKET PO SCH (11:21)
[2020-09-04 14:00] VITALS: BP 133/63
[2020-09-04 21:36] VITALS: BP 137/63
[2020-09-04] MEDS: ROSUVASTATIN 10 MG TAB (CRESTOR) PO SCH (21:36)
[2020-09-04] MEDS: MOM 30ML SUSPENSION UDC PO PRN (21:37)
[2020-09-04 22:00] VITALS: BP 137/63
[2020-09-04] MEDS ORDERED: GLYCERIN ADULT SUPP PR PRN (23:00)
[2020-09-04] MEDS ORDERED: MAGNESIUM CITRATE 300 ML BTL PO ONE (23:00)
--- NOTE | 2020-09-04 23:42 | REPVR ---
PROCEDURE INFORMATION: Exam: MR Head Without Contrast Exam date and time: 09/04/2020 10:40 PM Age: 70 years old Clinical indication: Patient HX: Persistent dizziness, / cerebellar or post circulation strok TECHNIQUE: Imaging protocol: MR of the head without contrast. COMPARISON: CT Head without contrast 09/01/2020 4:12 PM FINDINGS: There is motion artifact. Major vascular flow voids at the skull base are preserved. No hydrocephalus. No extra-axial fluid collection. Age-related volume loss. Non-specific white matter gliosis, probable chronic microvascular ischemia. No midline shift or intracranial mass effect. No diffusion restriction. Mild paranasal sinus disease. No significant mastoid effusion. IMPRESSION: No acute intracranial abnormality. Electronically signed by: Wilver Brooks On 09/04/2020 23:42:39 PM
[2020-09-05] MEDS: LEVOTHYROXINE 137MCG TABLET (0.137MG) PO SCH (05:35)
[2020-09-05] MEDS: HEPARIN SOD (PORCINE) 5000UNITS/ML 1ML VIAL/SYRINGE SC SCH (05:36)
[2020-09-05 06:00] VITALS: BP 134/62
[2020-09-05 06:21] LABS: HEMATOCRIT 32.1 % (36.0-47.0); HEMOGLOBIN 10.1 g/dl (12.0-15.5); MEAN CORPUSCULAR HGB CONC 31.5 g/dl (32.0-36.5); MEAN CORPUSCULAR VOLUME 82.5 fl (80.0-96.0); PLATELET COUNT, AUTOMATED 266 10^3/uL (150-450); RED BLOOD COUNT 3.89 10^6/uL (4.00-5.40); WHITE BLOOD COUNT 9.5 10^3/uL (4.0-10.0)
[2020-09-05 06:48] LABS: CALCIUM LEVEL 8.8 MG/DL (8.8-10.2); CREATININE FOR GFR 1.09 MG/DL (0.55-1.30); GLOMERULAR FILTRATION RATE 52.8 (>39); POTASSIUM SERUM 4.5 MEQ/L (3.5-5.1)
--- NOTE | 2020-09-05 07:34 | DS.PDOC ---
Discharge Summary General Date of Admission Sep 01, 2020 at 22:41 Date of Discharge 09/05/20 Discharge Summary PROCEDURES PERFORMED DURING STAY: Echo: 1. Study is of acceptable technical quality, patient is in sinus rhythm. 2. Normal LV size with mild LVH and preserved LV systolic function. Estimated L VEF 70%. Grade 1 diastolic dysfunction. 3. Aortic sclerosis but no stenosis or insufficiency. 4. Degenerative abnormalities of mitral valve with no significant stenosis and trace insufficiency. 5. Normal central venous pressure. 6. Unable to estimate pulmonary artery pressure but no signs to suggest pulmonary hypertension. DISCHARGE DIAGNOSES: Vertigo Chronic dizziness ALLA Hyperglycemia Gait instability and falls. SECONDARY DIAGNOSIS Diabetes Neuropathy PAD HTN Hypothyroid Bilateral Breast cancer with Bilateral mastectomy Chronic back pain and leg pain. COMPLICATIONS/CHIEF COMPLAINT: Dizziness,Multiple Falls. HOSPITAL COURSE: Patient is a 70 year old female with PMHx including DM with neuropathy, HTN, hypothyroidism, breast cancer, and frequent falls, presented to the ED after fall today at home, found to be hyperglycemic admitted for further workup of possible presyncope and evaluation by PT/OT for frequent falls. Dizziness/Fall secondary to presyncope vs mechanical fall vs Vertigo continues to have symptoms. 48 hour telemetry no arrhythmias noted. orthostatic vital changes are negative. PT/OT for vestibular function no abnormality, No BPPV. MRI brain No stroke as below Patient lives alone. Continued rehab upon discharge. ALLA likely due to osmotic diuresis and dehydration. improved after better sugar control. 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 HTN was having lowish Bp in hospital now in normal range with out any hypertensives. lisinopril dose reduced with hold parameters. She may be able to come off antihypertensives. Chlorthalidone stopped Hypothyroidism levothyroxine Bilateral breast cancer. Left in 2008 s/p left radical mastectomy and chemotherapy and adjuvant therapy, right breast cancer in 2014 s/p right mastectomy in 2019 had open sore along the incision line. Has a recurring wound at the incision line of the right scar. Needs follow up with oncology. This may be a cancer recurrence. At present the wound is scabbed over and dry. Chronic pain continue home duloxetine and gabapentin. Hold home naproxen gabapentin dose reduced. DISCHARGE MEDICATIONS: Please see below. ALLERGIES: Please see below. PHYSICAL EXAMINATION ON DISCHARGE: VITAL SIGNS: Please see below. General Exam: Positive: Alert, Cooperative, No Acute Distress Eye Exam: Positive: PERRLA, Conjunctiva & lids normal, EOMI; Negative: Sclera icteric Neck Exam: Positive: Supple; Negative: JVD, thyromegaly Chest Exam: Positive: Clear to auscultation, Normal air movement Heart Exam: Positive: Rate Normal, Regular Rhythm, Normal S1, Normal S2; Negative: Murmurs, Rubs Abdomen Exam: Positive: Normal bowel sounds, Soft; Negative: Tenderness, Hepatosplenomegaly Extremity Exam: Negative: Clubbing, Cyanosis, Edema LABORATORY DATA: Please see below. IMAGING: MRI Brain: FINDINGS: There is motion artifact. Major vascular flow voids at the skull base are preserved. No hydrocephalus. No extra-axial fluid collection. Age-related volume loss. Non-specific white matter gliosis, probable chronic microvascular ischemia. No midline shift or intracranial mass effect. No diffusion restriction. Mild paranasal sinus disease. No significant mastoid effusion. IMPRESSION: No acute intracranial abnormality. ACTIVITY: [As tolerated]. DIET: Carb consistent DISCHARGE PLAN: [facility] DISCHARGE INSTRUCTIONS: Follow up with MD at [facility]. DISCHARGE CONDITION: [Stable]. TIME SPENT ON DISCHARGE: 35 minutes. Vital Signs/I&Os Vital Signs Date Time Temp Pulse Resp B/P (MAP) Pulse Ox O2 Delivery O2 Flow Rate FiO2 09/05/20 06:00 98.3 81 18 134/62 (86) 97 Room Air I&O- Last 24 Hours up to 6 AM 09/05/20 06:00 Intake Total 1075 ml Output Total 300 ml Balance 775 ml Laboratory Data Labs 24H Laboratory Tests 2 09/04/20 11:41: Bedside Glucose (Misc Panel) 264H 09/04/20 16:30: Bedside Glucose (Misc Panel) 216H 09/04/20 20:30: Bedside Glucose (Misc Panel) 220H 09/05/20 05:49: Nucleated Red Blood Cells % (auto) 0.0, Anion Gap 2L, Glomerular Filtration Rate 52.8, Calcium Level 8.8 CBC/BMP Laboratory Tests 09/05/20 05:49 FSBS Laboratory Tests Test 09/04/20 11:41 09/04/20 16:30 09/04/20 20:30 Range/Units Bedside Glucose (Misc Panel) 264 216 220 83-110 MG/DL Discharge Medications Scheduled Anastrozole (Anastrozole) 1 Mg Tablet, 1 MG PO DAILY, (Reported) Aspirin (Aspirin EC) 81 Mg Tabec, 81 MG PO DAILY, (Reported) Calcium Carbonate/Vitamin D3 (Calcium 600-Vit D3 400 Tablet) 1 Each Tablet, 1 TAB PO DAILY, (Reported) Chlorthalidone (Chlorthalidone) 25 Mg Tab, 25 MG PO DAILY, (Reported) Docusate Sodium (Docusate Sodium) 100 Mg Capsule, 100 MG PO DAILY, (Reported) Dulaglutide (Trulicity) 0.75 Mg/0.5 Ml Pen.injctr, 0.75 MG SC QWEEK, (Reported) MONDAYS Duloxetine Hcl (Duloxetine HCl) 30 Mg Cap, 30 MG PO DAILY, (Reported) Ergocalciferol (Vitamin D2) (Vitamin D2) 50,000 Units Cap, 50,000 UNITS PO QWEEK, (Reported) WEDNESDAYS Ferrous Sulfate (Ferrous Sulfate) 325 Mg Tab, 325 MG PO DAILY, (Reported) Gabapentin (Neurontin) 300 Mg Capsule, 300 MG PO TID, (Reported) Insulin Glargine,Hum.rec.anlog (Toujeo Solostar) 300 Unit/Ml Inj, 80 UNIT SC DAILY, (Reported) Insulin Glargine,Hum.rec.anlog (Toujeo Solostar) 300 Unit/Ml Inj, 30 UNIT SC Q HS, (Reported) Insulin Lispro (Humalog) 100 Unit/Ml Inj, 1 DOSE SC AC, (Reported) PER SLIDING SCALE Levothyroxine Sodium (Synthroid) 137 Mcg Tab, 137 MCG PO DAILY, (Reported) Lisinopril (Lisinopril) 20 Mg Tab, 20 MG PO BID, (Reported) Mupirocin (Mupirocin) 2 % Oint...g., 1 DOSE EXT DAILY, (Reported) USES ON FEET AND TOES Psyllium Husk (with Sugar) (Metamucil Powder) 575 Gm Powder, 1 PKT PO DAILY, (Reported) Rosuvastatin Calcium (Crestor) 40 Mg Tab, 40 MG PO QPM, (Reported) TAKES AT 1800 Scheduled PRN Glucagon,Human Recombinant (Glucagon Emergency Kit) 1 Mg Vial, 1 MG IM ASDIRECTED PRN for LOW BLOOD SUGAR, (Reported) Naproxen (Naproxen) 500 Mg Tablet.dr, 500 MG PO BID PRN for PAIN, (Reported) Nitroglycerin (Nitrostat) 0.4 Mg Tab.subl, 0.4 MG SL NITRO PRN for CHEST PAIN, (Reported) Allergies Coded Allergies: Penicillins (Verified Allergy, Intermediate, "flips out", hives, 05/08/20) FLORY LLANES MD Sep 05, 2020 07:34
[2020-09-05] MEDS ORDERED: LISI10TA22 PO (07:52)
[2020-09-05] MEDS ORDERED: NEUR300C PO (07:52)
[2020-09-05] MEDS: LEVEMIR (INSULIN DETEMIR) 1 UNITS/0.01ML SC SCH (08:14)
[2020-09-05] MEDS: DOCUSATE SODIUM 100MG CAPSULE PO SCH (08:15)
[2020-09-05] MEDS: METAMUCIL (PSYLLIUM) PACKET PO SCH (08:15)
[2020-09-05] MEDS: DULoxetine 30 MG CAP (CYMBALTA) PO SCH (08:15)
[2020-09-05] MEDS: GABAPENTIN 300 MG CAP PO SCH (08:15)
[2020-09-05] MEDS: ASPIRIN 81MG ENTERIC TABLET PO SCH (08:15)
[2020-09-05] MEDS: FERROUS SULFATE 325MG TAB PO SCH (08:15)
[2020-09-05] MEDS: HumaLOG INSULIN (NovoLOG) PER UNIT SC SCH (08:15)
== END 2020-09-05 11:07 | DRG 149 ==
LOC: EDBD 15:45 → M ED 15:45 → M ED INP 22:41 → ENRESERV 22:50 → M MSPAV 09-02 01:05
PROVIDERS: ADMIT Family Medicine; ATTEND Internal Medicine Nephrology
DX: R42 Dizziness and giddiness (principal); N17.9 Acute kidney failure, unspecified; I10 Essential (primary) hypertension; E03.9 Hypothyroidism, unspecified; E11.40 Type 2 diabetes mellitus with diabetic neuropathy, unspecified; R55 Syncope and collapse; R26.89 Other abnormalities of gait and mobility; G89.29 Other chronic pain; R29.6 Repeated falls; E11.51 Type 2 diabetes mellitus with diabetic peripheral angiopathy without gangrene; Z85.3 Personal history of malignant neoplasm of breast; Z90.13 Acquired absence of bilateral breasts and nipples; Z89.421 Acquired absence of other right toe(s); Z87.891 Personal history of nicotine dependence; Z79.82 Long term (current) use of aspirin; Z79.4 Long term (current) use of insulin; Z79.899 Other long term (current) drug therapy; Z88.0 Allergy status to penicillin; Z20.822 Contact with and (suspected) exposure to COVID-19; Z92.21 Personal history of antineoplastic chemotherapy

== ENCOUNTER 2021-09-09 11:24 | Emergency (ER) | payer MEDICAID, MEDICARE ==
[~2021-09-09] VITALS: Ht 162.6 cm; Wt 90.9 kg
[~2021-09-09 11:24] MED LIST changes: +CALC600T64 PO; +DOCU100C16 PO; +ERGO500029 PO; +LISI10TA22 PO; +MUPI2OI EXT; +NAPR500T6 PO; +ONDA-84 PO; -ONDA8TAB10 PO; -PROC10TA4 PO; +PROC10TA5 PO
[2021-09-09 13:40] LABS: BASO # 0.1 10^3/uL (0.0-0.2); BASO % 0.6 % (0.0-1.0); EOS # 0.2 10^3/uL (0.0-0.5); HEMATOCRIT 33.7 % (36.0-47.0); HEMOGLOBIN 10.8 g/dl (12.0-15.5); LYMPH # 1.8 10^3/uL (1.5-5.0); LYMPH % 22.6 % (24.0-44.0); MEAN CORPUSCULAR HEMOGLOBIN 25.4 pg (27.0-33.0); MEAN CORPUSCULAR VOLUME 79.3 fl (80.0-96.0); MONO # 0.8 10^3/uL (0.0-0.8); MONO % 10.1 % (2.0-8.0); NEUTROPHILS # 5.1 10^3/uL (1.5-8.5); NEUTROPHILS % 62.5 % (36.0-66.0); PLATELET COUNT, AUTOMATED 222 10^3/uL (150-450); RED BLOOD COUNT 4.25 10^6/uL (4.00-5.40); WHITE BLOOD COUNT 8.1 10^3/uL (4.0-10.0)
[2021-09-09 13:56] LABS: CALCIUM LEVEL 9.1 MG/DL (8.8-10.2); CREATININE FOR GFR 1.52 MG/DL (0.55-1.30); GLOMERULAR FILTRATION RATE 35.9 (>39); POTASSIUM SERUM 4.6 MEQ/L (3.5-5.1)
[2021-09-09 14:25] LABS: RSV AMPLIFICATION NEGATIVE (NEGATIVE)
[2021-09-09] MEDS ORDERED: NORCO, ANEXSIA 5/325MG TABLET (HYDROcodone/ACETAMINOPHEN) PO ONE (17:00)
[2021-09-09] MEDS ORDERED: HYDR-4571 PO (17:06)
[2021-09-09 17:09] VITALS: BP 140/71
[2021-09-09 17:25] VITALS: O2SAT 99
== END 2021-09-09 18:11 | disposition home or self-care (01) ==
LOC: M ED 11:24
DX: S09.90XA Unspecified injury of head, initial encounter (principal); W01.0XXA Fall on same level from slipping, tripping and stumbling without subsequent striking against object, initial encounter; Y92.9 Unspecified place or not applicable; Y93.9 Activity, unspecified; Y99.9 Unspecified external cause status; R29.6 Repeated falls; Z88.0 Allergy status to penicillin

== ENCOUNTER 2021-10-04 16:11 | Emergency (ER) | payer MEDICARE ==
[~2021-10-04] VITALS: Ht 162.6 cm; Wt 170.0 kg
[~2021-10-04 16:11] MED LIST changes: +HYDR-4571 PO
[2021-10-04] MEDS ORDERED: MORPHINE 2 MG/ML 1ML VIAL SC ONE (16:25)
[2021-10-04] MEDS ORDERED: NORCO 5/325MG TABLET (BULK FOR ED) PO ONE (17:20)
[2021-10-04] MEDS ORDERED: HYDR-3713 PO (17:28)
[2021-10-04 17:55] VITALS: BP 162/88
== END 2021-10-04 18:00 | disposition home or self-care (01) ==
LOC: EDBD 16:11 → M ED 16:11
DX: S42.215A Unspecified nondisplaced fracture of surgical neck of left humerus, initial encounter for closed fracture (principal); S42.295A Other nondisplaced fracture of upper end of left humerus, initial encounter for closed fracture; W01.0XXA Fall on same level from slipping, tripping and stumbling without subsequent striking against object, initial encounter; Y92.018 Other place in single-family (private) house as the place of occurrence of the external cause; Y93.9 Activity, unspecified; Y99.9 Unspecified external cause status; E11.9 Type 2 diabetes mellitus without complications; I10 Essential (primary) hypertension; Z88.0 Allergy status to penicillin
CPT/HCPCS: 73060; 73090; 99284; J2270

== ENCOUNTER 2021-10-11 17:50 | Emergency (ER) | payer MEDICARE ==
[~2021-10-11] VITALS: Ht 162.6 cm; Wt 77.3 kg
[2021-10-11 19:08] LABS: BASO # 0.1 10^3/uL (0.0-0.2); BASO % 0.7 % (0.0-1.0); EOS # 0.3 10^3/uL (0.0-0.5); HEMATOCRIT 30.3 % (36.0-47.0); HEMOGLOBIN 9.7 g/dl (12.0-15.5); LYMPH # 1.8 10^3/uL (1.5-5.0); LYMPH % 26.1 % (24.0-44.0); MEAN CORPUSCULAR VOLUME 81.2 fl (80.0-96.0); MONO # 0.7 10^3/uL (0.0-0.8); MONO % 9.7 % (2.0-8.0); PLATELET COUNT, AUTOMATED 245 10^3/uL (150-450); RED BLOOD COUNT 3.73 10^6/uL (4.00-5.40); WHITE BLOOD COUNT 6.8 10^3/uL (4.0-10.0)
[2021-10-11 19:18] LABS: INR 1.02; PROTHROMBIN TIME 13.8 SECONDS (12.7-14.5)
[2021-10-11 19:19] LABS: PARTIAL THROMBOPLASTIN TIME 31.8 SECONDS (25.9-37.0)
[2021-10-11 19:44] LABS: ALBUMIN 3.1 GM/DL (3.2-5.2); BILIRUBIN,DIRECT 0.2 MG/DL (0.0-0.2); BILIRUBIN,TOTAL 0.9 MG/DL (0.2-1.0); CALCIUM LEVEL 9.7 MG/DL (8.8-10.2); CREATININE FOR GFR 1.58 MG/DL (0.55-1.30); GLOMERULAR FILTRATION RATE 34.3 (>39); POTASSIUM SERUM 5.7 MEQ/L (3.5-5.1); THYROID STIMULATING HORMONE 3.64 uIU/ML (0.358-3.740); THYROXINE (T4) 8.9 UG/DL (4.5-12.0); TOTAL PROTEIN 7.2 GM/DL (6.4-8.2)
[2021-10-11 20:15] LABS: RSV AMPLIFICATION NEGATIVE (NEGATIVE)
[2021-10-11] MEDS ORDERED: NORCO, ANEXSIA 5/325MG TABLET (HYDROcodone/ACETAMINOPHEN) PO ONE (20:15)
[2021-10-11] MEDS ORDERED: NS 1,000 ML IV ONE (20:15)
[2021-10-11 21:08] VITALS: BP 153/70
[2021-10-11] MEDS ORDERED: HYDR-4571 PO (23:20)
== END 2021-10-11 23:36 | disposition home or self-care (01) ==
LOC: M ED 17:50
DX: R22.43 Localized swelling, mass and lump, lower limb, bilateral (principal); I10 Essential (primary) hypertension; E78.5 Hyperlipidemia, unspecified; J45.909 Unspecified asthma, uncomplicated; E11.9 Type 2 diabetes mellitus without complications; K21.9 Gastro-esophageal reflux disease without esophagitis; K58.8 Other irritable bowel syndrome; Z88.0 Allergy status to penicillin; Z79.899 Other long term (current) drug therapy; Z79.4 Long term (current) use of insulin; Z79.82 Long term (current) use of aspirin

== ENCOUNTER → 2021-10-15 | Outpatient (CLI) | payer MEDICARE | LOC: M SOG 15:35 | PROVIDERS: ATTEND Orthopaedic Surgery | DX: M54.2 Cervicalgia (principal); M25.512 Pain in left shoulder ==

== ENCOUNTER → 2021-10-23 | Outpatient (CLI) | payer MEDICARE | LOC: M SOG 09:53 | PROVIDERS: ATTEND Orthopaedic Surgery | DX: S42.222A 2-part displaced fracture of surgical neck of left humerus, initial encounter for closed fracture (principal) ==

== ENCOUNTER 2022-03-24 01:39 | Inpatient (IN) | payer MEDICARE ==
[~2022-03-24] VITALS: Ht 162.6 cm; Wt 80.1 kg
[~2022-03-24 01:39] MED LIST changes: +ALEN70TA87 PO; -FOSA70TA PO
[2022-03-24] MEDS ORDERED: NORCO, ANEXSIA 5/325MG TABLET (HYDROcodone/ACETAMINOPHEN) PO ONE (06:40)
[2022-03-24] MEDS ORDERED: IBUPROFEN 600MG TAB PO ONE (06:40)
[2022-03-24] MEDS ORDERED: ROLLMIS8 XX (08:45)
[2022-03-24] MEDS ORDERED: HYDR-3713 PO (08:56)
[2022-03-24] MEDS ORDERED: MOM 30ML SUSPENSION UDC PO PRN (12:25)
[2022-03-24] MEDS ORDERED: TRUL0.5I SC (12:30)
[2022-03-24] MEDS ORDERED: LEVO150T7 PO (12:30)
[2022-03-24] MEDS ORDERED: GABA-282 PO (12:30)
[2022-03-24] MEDS ORDERED: LISI10TA22 PO (12:30)
[2022-03-24] MEDS ORDERED: HOME MED LIST COMPLETE! XX SCH (12:35)
[2022-03-24 13:27] LABS: BASO % 0.5 % (0.0-1.0); EOS # 0.2 10^3/uL (0.0-0.5); EOS % 2.3 % (0.0-3.0); HEMATOCRIT 35.1 % (36.0-47.0); HEMOGLOBIN 11.4 g/dl (12.0-15.5); LYMPH # 1.7 10^3/uL (1.5-5.0); LYMPH % 21.4 % (24.0-44.0); MEAN CORPUSCULAR HGB CONC 32.5 g/dl (32.0-36.5); MEAN CORPUSCULAR VOLUME 80.1 fl (80.0-96.0); MONO # 0.7 10^3/uL (0.0-0.8); MONO % 9.3 % (2.0-8.0); NEUTROPHILS # 5.2 10^3/uL (1.5-8.5); NEUTROPHILS % 65.2 % (36.0-66.0); PLATELET COUNT, AUTOMATED 219 10^3/uL (150-450); RED BLOOD COUNT 4.38 10^6/uL (4.00-5.40)
[2022-03-24 13:47] LABS: INR 0.98; PARTIAL THROMBOPLASTIN TIME 26.9 SECONDS (25.9-37.0); PROTHROMBIN TIME 13.4 SECONDS (12.7-14.5)
[2022-03-24 14:02] LABS: CALCIUM LEVEL 10.1 MG/DL (8.8-10.2); CREATININE FOR GFR 1.77 MG/DL (0.55-1.30); GLOMERULAR FILTRATION RATE 30.1 (>39); POTASSIUM SERUM 4.7 MEQ/L (3.5-5.1)
[2022-03-24] MEDS ORDERED: GLUCAGON INJ 1MG VIAL SC PRN (14:20)
[2022-03-24] MEDS ORDERED: GLUCOSE 4GM CHEW TABLET PO PRN (14:20)
[2022-03-24] MEDS ORDERED: DEXTROSE 50% 50 ML SYRINGE IV PRN (14:20)
[2022-03-24] MEDS ORDERED: NS 1,000 ML IV ONE (14:25)
[2022-03-24] MEDS ORDERED: HumuLIN R (REGULAR) INSULIN (NovoLIN R) **100U/ML** PER UNIT IV STA (14:29)
[2022-03-24] MEDS: oxyCODONE 5MG TAB PO PRN (16:15)
[2022-03-24 17:40] VITALS: BP 146/70
[2022-03-24] MEDS: INSULIN LISPRO (NovoLOG) PER UNIT SC SCH ×2 (18:14→20:12)
[2022-03-24] MEDS: ROSUVASTATIN 10 MG TAB (CRESTOR) PO SCH (18:14)
[2022-03-24] MEDS: LEVEMIR (INSULIN DETEMIR) 1 UNITS/0.01ML SC SCH (20:11)
[2022-03-24] MEDS: GABAPENTIN 300 MG CAP PO SCH (20:11)
[2022-03-24] MEDS ORDERED: DOCUSATE SODIUM 100MG CAPSULE PO SCH (21:00)
[2022-03-24] MEDS ORDERED: LEVEMIR (INSULIN DETEMIR) 1 UNITS/0.01ML SC SCH (21:00)
[2022-03-24 22:00] VITALS: BP 142/68
[2022-03-25 06:00] VITALS: BP 140/67
[2022-03-25] MEDS: LEVOTHYROXINE 150MCG TABLET (0.15MG) PO SCH (06:01)
[2022-03-25 07:17] LABS: BASO % 0.5 % (0.0-1.0); EOS # 0.2 10^3/uL (0.0-0.5); EOS % 2.4 % (0.0-3.0); HEMATOCRIT 31.1 % (36.0-47.0); HEMOGLOBIN 9.8 g/dl (12.0-15.5); LYMPH # 1.9 10^3/uL (1.5-5.0); LYMPH % 22.5 % (24.0-44.0); MEAN CORPUSCULAR HEMOGLOBIN 25.7 pg (27.0-33.0); MEAN CORPUSCULAR HGB CONC 31.5 g/dl (32.0-36.5); MEAN CORPUSCULAR VOLUME 81.6 fl (80.0-96.0); MONO # 0.8 10^3/uL (0.0-0.8); MONO % 9.5 % (2.0-8.0); NEUTROPHILS # 5.5 10^3/uL (1.5-8.5); NEUTROPHILS % 64.2 % (36.0-66.0); PLATELET COUNT, AUTOMATED 204 10^3/uL (150-450); RED BLOOD COUNT 3.81 10^6/uL (4.00-5.40); WHITE BLOOD COUNT 8.5 10^3/uL (4.0-10.0)
[2022-03-25 07:52] LABS: CREATININE FOR GFR 1.62 MG/DL (0.55-1.30); GLOMERULAR FILTRATION RATE 33.3 (>39); POTASSIUM SERUM 4.9 MEQ/L (3.5-5.1)
[2022-03-25] MEDS: DOCUSATE SODIUM 100MG CAPSULE PO SCH (08:30)
[2022-03-25] MEDS: ASPIRIN 81MG ENTERIC TABLET PO SCH (08:30)
[2022-03-25] MEDS: GABAPENTIN 300 MG CAP PO SCH ×2 (08:30→21:21)
[2022-03-25] MEDS: DULoxetine 30MG CAPSULE (CYMBALTA) PO SCH (08:30)
[2022-03-25] MEDS: INSULIN LISPRO (NovoLOG) PER UNIT SC SCH ×4 (08:31→21:22)
[2022-03-25] MEDS ORDERED: LEVEMIR (INSULIN DETEMIR) 1 UNITS/0.01ML SC SCH (09:00)
[2022-03-25] MEDS ORDERED: FLUBLOK(EGG FREE)(QUAD)INFLUENZA VACC 0.5ML SYRINGE 18YRS & OLDER IM.IMMUN ONE (09:00)
[2022-03-25] MEDS ORDERED: CHLORTHALIDONE 25 MG TAB PO SCH (09:00)
[2022-03-25 14:00] VITALS: BP 137/68
[2022-03-25] MEDS: ROSUVASTATIN 10 MG TAB (CRESTOR) PO SCH (18:04)
[2022-03-25] MEDS: ACETAMINOPHEN TAB 650MG DOSE (2X325MG) PO PRN (21:21)
[2022-03-25] MEDS: LEVEMIR (INSULIN DETEMIR) 1 UNITS/0.01ML SC SCH (21:22)
[2022-03-25 22:00] VITALS: BP 135/68
[2022-03-26 06:15] LABS: BASO # 0.1 10^3/uL (0.0-0.2); BASO % 0.9 % (0.0-1.0); EOS # 0.2 10^3/uL (0.0-0.5); EOS % 2.8 % (0.0-3.0); HEMOGLOBIN 9.5 g/dl (12.0-15.5); LYMPH % 29.3 % (24.0-44.0); MEAN CORPUSCULAR HEMOGLOBIN 26.2 pg (27.0-33.0); MEAN CORPUSCULAR HGB CONC 31.7 g/dl (32.0-36.5); MEAN CORPUSCULAR VOLUME 82.6 fl (80.0-96.0); MONO # 0.7 10^3/uL (0.0-0.8); MONO % 9.8 % (2.0-8.0); NEUTROPHILS # 3.8 10^3/uL (1.5-8.5); PLATELET COUNT, AUTOMATED 188 10^3/uL (150-450); RED BLOOD COUNT 3.63 10^6/uL (4.00-5.40); WHITE BLOOD COUNT 6.7 10^3/uL (4.0-10.0)
[2022-03-26 06:19] VITALS: BP 142/60
[2022-03-26] MEDS: LEVOTHYROXINE 150MCG TABLET (0.15MG) PO SCH (06:25)
[2022-03-26 06:41] LABS: CALCIUM LEVEL 8.7 MG/DL (8.8-10.2); CREATININE FOR GFR 1.64 MG/DL (0.55-1.30); GLOMERULAR FILTRATION RATE 32.9 (>39); POTASSIUM SERUM 4.4 MEQ/L (3.5-5.1)
[2022-03-26] MEDS ORDERED: LEVEMIR (INSULIN DETEMIR) 1 UNITS/0.01ML SC SCH (09:00)
[2022-03-26] MEDS: DULoxetine 30MG CAPSULE (CYMBALTA) PO SCH (09:29)
[2022-03-26] MEDS: ASPIRIN 81MG ENTERIC TABLET PO SCH (09:29)
[2022-03-26] MEDS: GABAPENTIN 300 MG CAP PO SCH ×2 (09:29→20:55)
[2022-03-26] MEDS: DOCUSATE SODIUM 100MG CAPSULE PO SCH (09:29)
[2022-03-26] MEDS: INSULIN LISPRO (NovoLOG) PER UNIT SC SCH ×4 (09:30→20:56)
[2022-03-26] MEDS: ACETAMINOPHEN TAB 650MG DOSE (2X325MG) PO PRN ×2 (13:21→20:55)
[2022-03-26 14:00] VITALS: BP 135/68
[2022-03-26] MEDS: ROSUVASTATIN 10 MG TAB (CRESTOR) PO SCH (17:46)
[2022-03-26 20:08] VITALS: BP 127/58
[2022-03-26] MEDS: LEVEMIR (INSULIN DETEMIR) 1 UNITS/0.01ML SC SCH (20:55)
[2022-03-27] MEDS: LEVOTHYROXINE 150MCG TABLET (0.15MG) PO SCH (05:11)
[2022-03-27 06:05] VITALS: BP 134/72
[2022-03-27 08:22] LABS: BASO # 0.1 10^3/uL (0.0-0.2); BASO % 0.8 % (0.0-1.0); EOS # 0.2 10^3/uL (0.0-0.5); EOS % 2.9 % (0.0-3.0); HEMATOCRIT 31.4 % (36.0-47.0); HEMOGLOBIN 9.7 g/dl (12.0-15.5); LYMPH # 1.3 10^3/uL (1.5-5.0); LYMPH % 20.6 % (24.0-44.0); MEAN CORPUSCULAR HEMOGLOBIN 25.9 pg (27.0-33.0); MEAN CORPUSCULAR HGB CONC 30.9 g/dl (32.0-36.5); MEAN CORPUSCULAR VOLUME 83.7 fl (80.0-96.0); MONO # 0.6 10^3/uL (0.0-0.8); MONO % 10.3 % (2.0-8.0); NEUTROPHILS # 3.9 10^3/uL (1.5-8.5); NEUTROPHILS % 64.1 % (36.0-66.0); PLATELET COUNT, AUTOMATED 187 10^3/uL (150-450); RED BLOOD COUNT 3.75 10^6/uL (4.00-5.40); WHITE BLOOD COUNT 6.1 10^3/uL (4.0-10.0)
[2022-03-27] MEDS: INSULIN LISPRO (NovoLOG) PER UNIT SC SCH ×4 (08:50→21:16)
[2022-03-27] MEDS: DULoxetine 30MG CAPSULE (CYMBALTA) PO SCH (08:51)
[2022-03-27] MEDS: ASPIRIN 81MG ENTERIC TABLET PO SCH (08:51)
[2022-03-27] MEDS: DOCUSATE SODIUM 100MG CAPSULE PO SCH (08:51)
[2022-03-27] MEDS: GABAPENTIN 300 MG CAP PO SCH ×2 (08:51→21:17)
[2022-03-27] MEDS ORDERED: LEVEMIR (INSULIN DETEMIR) 1 UNITS/0.01ML SC SCH (09:00)
[2022-03-27 09:01] LABS: CALCIUM LEVEL 8.8 MG/DL (8.8-10.2); CREATININE FOR GFR 1.41 MG/DL (0.55-1.30); GLOMERULAR FILTRATION RATE 39.1 (>39); POTASSIUM SERUM 4.9 MEQ/L (3.5-5.1)
[2022-03-27] MEDS: oxyCODONE 5MG TAB PO PRN (12:51)
[2022-03-27] MEDS: ACETAMINOPHEN TAB 650MG DOSE (2X325MG) PO PRN ×2 (12:51→21:17)
[2022-03-27 14:00] VITALS: BP 148/68
[2022-03-27] MEDS: HEPARIN SOD (PORCINE) 5000UNITS/ML 1ML VIAL/SYRINGE SQ SCH ×2 (14:16→21:17)
[2022-03-27] MEDS: ROSUVASTATIN 10 MG TAB (CRESTOR) PO SCH (17:32)
[2022-03-27] MEDS: LEVEMIR (INSULIN DETEMIR) 1 UNITS/0.01ML SC SCH (21:16)
[2022-03-27 22:00] VITALS: BP 147/65
[2022-03-28] MEDS: LEVOTHYROXINE 150MCG TABLET (0.15MG) PO SCH (05:35)
[2022-03-28 06:00] VITALS: BP 132/93
[2022-03-28 06:33] LABS: BASO # 0.1 10^3/uL (0.0-0.2); EOS # 0.2 10^3/uL (0.0-0.5); EOS % 3.9 % (0.0-3.0); HEMATOCRIT 32.1 % (36.0-47.0); HEMOGLOBIN 9.8 g/dl (12.0-15.5); LYMPH # 1.6 10^3/uL (1.5-5.0); LYMPH % 30.7 % (24.0-44.0); MEAN CORPUSCULAR HEMOGLOBIN 25.5 pg (27.0-33.0); MEAN CORPUSCULAR HGB CONC 30.5 g/dl (32.0-36.5); MEAN CORPUSCULAR VOLUME 83.4 fl (80.0-96.0); MONO # 0.5 10^3/uL (0.0-0.8); MONO % 9.7 % (2.0-8.0); NEUTROPHILS # 2.7 10^3/uL (1.5-8.5); NEUTROPHILS % 52.8 % (36.0-66.0); PLATELET COUNT, AUTOMATED 193 10^3/uL (150-450); RED BLOOD COUNT 3.85 10^6/uL (4.00-5.40); WHITE BLOOD COUNT 5.1 10^3/uL (4.0-10.0)
[2022-03-28 06:54] LABS: CALCIUM LEVEL 8.9 MG/DL (8.8-10.2); CREATININE FOR GFR 1.32 MG/DL (0.55-1.30); GLOMERULAR FILTRATION RATE 42.2 (>39); POTASSIUM SERUM 4.1 MEQ/L (3.5-5.1)
[2022-03-28] MEDS: LEVEMIR (INSULIN DETEMIR) 1 UNITS/0.01ML SC SCH ×2 (08:38→20:46)
[2022-03-28] MEDS: INSULIN LISPRO (NovoLOG) PER UNIT SC SCH ×4 (08:39→20:47)
[2022-03-28] MEDS: DOCUSATE SODIUM 100MG CAPSULE PO SCH (08:40)
[2022-03-28] MEDS: HEPARIN SOD (PORCINE) 5000UNITS/ML 1ML VIAL/SYRINGE SQ SCH ×2 (08:40→20:46)
[2022-03-28] MEDS: DULoxetine 30MG CAPSULE (CYMBALTA) PO SCH (08:40)
[2022-03-28] MEDS: GABAPENTIN 300 MG CAP PO SCH ×2 (08:40→20:46)
[2022-03-28] MEDS: ASPIRIN 81MG ENTERIC TABLET PO SCH (08:40)
[2022-03-28 12:53] LABS: HEMOGLOBIN A1c > 14.0 %
[2022-03-28 14:00] VITALS: BP 142/66
[2022-03-28] MEDS: ROSUVASTATIN 10 MG TAB (CRESTOR) PO SCH (16:48)
[2022-03-28] MEDS: ACETAMINOPHEN TAB 650MG DOSE (2X325MG) PO PRN (20:46)
[2022-03-28 22:00] VITALS: BP 133/64
[2022-03-29] MEDS: LEVOTHYROXINE 150MCG TABLET (0.15MG) PO SCH (05:11)
[2022-03-29 06:00] VITALS: BP 113/54
[2022-03-29 06:05] LABS: BASO % 0.7 % (0.0-1.0); EOS # 0.2 10^3/uL (0.0-0.5); EOS % 3.6 % (0.0-3.0); HEMATOCRIT 29.2 % (36.0-47.0); HEMOGLOBIN 9.3 g/dl (12.0-15.5); LYMPH # 1.8 10^3/uL (1.5-5.0); LYMPH % 29.8 % (24.0-44.0); MEAN CORPUSCULAR HEMOGLOBIN 26.1 pg (27.0-33.0); MEAN CORPUSCULAR HGB CONC 31.8 g/dl (32.0-36.5); MEAN CORPUSCULAR VOLUME 81.8 fl (80.0-96.0); MONO # 0.6 10^3/uL (0.0-0.8); MONO % 9.1 % (2.0-8.0); NEUTROPHILS # 3.3 10^3/uL (1.5-8.5); NEUTROPHILS % 54.3 % (36.0-66.0); PLATELET COUNT, AUTOMATED 197 10^3/uL (150-450); RED BLOOD COUNT 3.57 10^6/uL (4.00-5.40); WHITE BLOOD COUNT 6.1 10^3/uL (4.0-10.0)
[2022-03-29 06:39] LABS: CALCIUM LEVEL 8.5 MG/DL (8.8-10.2); CREATININE FOR GFR 1.28 MG/DL (0.55-1.30); GLOMERULAR FILTRATION RATE 43.8 (>39); POTASSIUM SERUM 4.4 MEQ/L (3.5-5.1)
[2022-03-29] MEDS: HEPARIN SOD (PORCINE) 5000UNITS/ML 1ML VIAL/SYRINGE SQ SCH ×2 (09:08→21:57)
[2022-03-29] MEDS: INSULIN LISPRO (NovoLOG) PER UNIT SC SCH ×4 (09:08→21:56)
[2022-03-29] MEDS: GABAPENTIN 300 MG CAP PO SCH ×2 (09:09→21:57)
[2022-03-29] MEDS: ASPIRIN 81MG ENTERIC TABLET PO SCH (09:09)
[2022-03-29] MEDS: LEVEMIR (INSULIN DETEMIR) 1 UNITS/0.01ML SC SCH ×2 (09:09→21:57)
[2022-03-29] MEDS: DULoxetine 30MG CAPSULE (CYMBALTA) PO SCH (09:09)
[2022-03-29] MEDS: DOCUSATE SODIUM 100MG CAPSULE PO SCH (09:09)
[2022-03-29] MEDS: ACETAMINOPHEN TAB 650MG DOSE (2X325MG) PO PRN ×2 (09:10→22:19)
[2022-03-29 14:00] VITALS: BP 127/62
[2022-03-29] MEDS: ROSUVASTATIN 10 MG TAB (CRESTOR) PO SCH (18:09)
[2022-03-29 22:00] VITALS: BP 130/62
[2022-03-30] MEDS: LEVOTHYROXINE 150MCG TABLET (0.15MG) PO SCH (05:28)
[2022-03-30] MEDS: ACETAMINOPHEN TAB 650MG DOSE (2X325MG) PO PRN ×2 (05:32→20:11)
[2022-03-30 06:00] VITALS: BP 124/66
[2022-03-30 06:14] LABS: BASO # 0.1 10^3/uL (0.0-0.2); BASO % 0.8 % (0.0-1.0); EOS # 0.2 10^3/uL (0.0-0.5); EOS % 3.6 % (0.0-3.0); HEMATOCRIT 28.2 % (36.0-47.0); LYMPH # 1.7 10^3/uL (1.5-5.0); LYMPH % 28.6 % (24.0-44.0); MEAN CORPUSCULAR HEMOGLOBIN 26.3 pg (27.0-33.0); MEAN CORPUSCULAR HGB CONC 31.9 g/dl (32.0-36.5); MEAN CORPUSCULAR VOLUME 82.5 fl (80.0-96.0); MONO # 0.6 10^3/uL (0.0-0.8); MONO % 9.1 % (2.0-8.0); NEUTROPHILS # 3.3 10^3/uL (1.5-8.5); NEUTROPHILS % 54.9 % (36.0-66.0); PLATELET COUNT, AUTOMATED 195 10^3/uL (150-450); RED BLOOD COUNT 3.42 10^6/uL (4.00-5.40); WHITE BLOOD COUNT 6.1 10^3/uL (4.0-10.0)
[2022-03-30 06:46] LABS: CALCIUM LEVEL 8.3 MG/DL (8.8-10.2); CREATININE FOR GFR 1.19 MG/DL (0.55-1.30); GLOMERULAR FILTRATION RATE 47.6 (>39); POTASSIUM SERUM 4.1 MEQ/L (3.5-5.1)
[2022-03-30] MEDS: GABAPENTIN 300 MG CAP PO SCH ×2 (09:15→20:11)
[2022-03-30] MEDS: ASPIRIN 81MG ENTERIC TABLET PO SCH (09:15)
[2022-03-30] MEDS: DULoxetine 30MG CAPSULE (CYMBALTA) PO SCH (09:15)
[2022-03-30] MEDS: DOCUSATE SODIUM 100MG CAPSULE PO SCH (09:15)
[2022-03-30] MEDS: LEVEMIR (INSULIN DETEMIR) 1 UNITS/0.01ML SC SCH ×2 (09:16→20:12)
[2022-03-30] MEDS: HEPARIN SOD (PORCINE) 5000UNITS/ML 1ML VIAL/SYRINGE SQ SCH ×2 (09:16→20:12)
[2022-03-30] MEDS: INSULIN LISPRO (NovoLOG) PER UNIT SC SCH ×4 (09:17→20:13)
[2022-03-30 14:00] VITALS: BP 118/54
[2022-03-30] MEDS: ROSUVASTATIN 10 MG TAB (CRESTOR) PO SCH (18:33)
[2022-03-31 05:32] VITALS: BP 128/60
[2022-03-31] MEDS: LEVOTHYROXINE 150MCG TABLET (0.15MG) PO SCH (06:22)
[2022-03-31 06:29] LABS: BASO # 0.1 10^3/uL (0.0-0.2); BASO % 0.8 % (0.0-1.0); EOS # 0.2 10^3/uL (0.0-0.5); EOS % 3.9 % (0.0-3.0); HEMATOCRIT 28.2 % (36.0-47.0); HEMOGLOBIN 8.7 g/dl (12.0-15.5); LYMPH # 1.6 10^3/uL (1.5-5.0); LYMPH % 26.3 % (24.0-44.0); MEAN CORPUSCULAR HGB CONC 30.9 g/dl (32.0-36.5); MEAN CORPUSCULAR VOLUME 84.4 fl (80.0-96.0); MONO # 0.6 10^3/uL (0.0-0.8); MONO % 9.2 % (2.0-8.0); NEUTROPHILS # 3.4 10^3/uL (1.5-8.5); NEUTROPHILS % 56.6 % (36.0-66.0); PLATELET COUNT, AUTOMATED 206 10^3/uL (150-450); RED BLOOD COUNT 3.34 10^6/uL (4.00-5.40)
[2022-03-31 07:06] LABS: CALCIUM LEVEL 8.3 MG/DL (8.8-10.2); CREATININE FOR GFR 1.15 MG/DL (0.55-1.30); GLOMERULAR FILTRATION RATE 49.5 (>39); POTASSIUM SERUM 4.4 MEQ/L (3.5-5.1)
[2022-03-31] MEDS ORDERED: LEVEMIR (INSULIN DETEMIR) 1 UNITS/0.01ML SC ONE (07:15)
[2022-03-31] MEDS: INSULIN LISPRO (NovoLOG) PER UNIT SC SCH ×7 (08:36→21:00)
[2022-03-31] MEDS: GABAPENTIN 300 MG CAP PO SCH ×2 (08:37→20:59)
[2022-03-31] MEDS: DOCUSATE SODIUM 100MG CAPSULE PO SCH (08:37)
[2022-03-31] MEDS: DULoxetine 30MG CAPSULE (CYMBALTA) PO SCH (08:37)
[2022-03-31] MEDS: HEPARIN SOD (PORCINE) 5000UNITS/ML 1ML VIAL/SYRINGE SQ SCH ×2 (08:38→20:59)
[2022-03-31] MEDS: ASPIRIN 81MG ENTERIC TABLET PO SCH (08:38)
[2022-03-31] MEDS ORDERED: LEVEMIR (INSULIN DETEMIR) 1 UNITS/0.01ML SC SCH (09:00)
[2022-03-31] MEDS: ACETAMINOPHEN TAB 650MG DOSE (2X325MG) PO PRN ×2 (16:49→23:46)
[2022-03-31] MEDS: ROSUVASTATIN 10 MG TAB (CRESTOR) PO SCH (16:50)
[2022-03-31] MEDS: LEVEMIR (INSULIN DETEMIR) 1 UNITS/0.01ML SC SCH (21:01)
[2022-04-01 05:50] VITALS: BP 130/63
[2022-04-01] MEDS: LEVOTHYROXINE 150MCG TABLET (0.15MG) PO SCH (06:58)
[2022-04-01] MEDS: GABAPENTIN 300 MG CAP PO SCH ×2 (08:58→22:11)
[2022-04-01] MEDS: DULoxetine 30MG CAPSULE (CYMBALTA) PO SCH (08:58)
[2022-04-01] MEDS: HEPARIN SOD (PORCINE) 5000UNITS/ML 1ML VIAL/SYRINGE SQ SCH ×2 (08:58→22:13)
[2022-04-01] MEDS: ASPIRIN 81MG ENTERIC TABLET PO SCH (08:58)
[2022-04-01] MEDS: oxyCODONE 5MG TAB PO PRN ×2 (08:59→17:44)
[2022-04-01] MEDS: DOCUSATE SODIUM 100MG CAPSULE PO SCH (08:59)
[2022-04-01] MEDS: LEVEMIR (INSULIN DETEMIR) 1 UNITS/0.01ML SC SCH (09:00)
[2022-04-01] MEDS: INSULIN LISPRO (NovoLOG) PER UNIT SC SCH ×7 (09:01→21:00)
[2022-04-01 14:00] VITALS: BP 130/61
[2022-04-01] MEDS: ROSUVASTATIN 10 MG TAB (CRESTOR) PO SCH (17:40)
[2022-04-01] MEDS ORDERED: LEVEMIR (INSULIN DETEMIR) 1 UNITS/0.01ML SC SCH (21:00)
[2022-04-01 22:12] VITALS: BP 126/61
[2022-04-02] MEDS: LEVOTHYROXINE 150MCG TABLET (0.15MG) PO SCH (05:26)
[2022-04-02 06:05] VITALS: BP 126/61
[2022-04-02] MEDS: DULoxetine 30MG CAPSULE (CYMBALTA) PO SCH (08:17)
[2022-04-02] MEDS: DOCUSATE SODIUM 100MG CAPSULE PO SCH (08:17)
[2022-04-02] MEDS: ASPIRIN 81MG ENTERIC TABLET PO SCH (08:17)
[2022-04-02] MEDS: GABAPENTIN 300 MG CAP PO SCH (08:17)
[2022-04-02] MEDS: INSULIN LISPRO (NovoLOG) PER UNIT SC SCH ×4 (08:18→12:30)
[2022-04-02] MEDS: HEPARIN SOD (PORCINE) 5000UNITS/ML 1ML VIAL/SYRINGE SQ SCH (08:19)
[2022-04-02] MEDS: LEVEMIR (INSULIN DETEMIR) 1 UNITS/0.01ML SC SCH (08:19)
[2022-04-02] MEDS ORDERED: INSUDET SC ×2 (12:07)
[2022-04-02] MEDS ORDERED: INSUHUMDS SC (12:07)
[2022-04-02] MEDS ORDERED: OXYC-517 PO (12:07)
== END 2022-04-02 14:15 | DRG 563 ==
LOC: M ED 01:39 → M ED INP 01:40 → M MS5PR 17:15 → OBSVTOIN 03-25 15:09
PROVIDERS: ADMIT Internal Medicine Nephrology; ATTEND General Practice
DX: S82.434A Nondisplaced oblique fracture of shaft of right fibula, initial encounter for closed fracture (principal); N17.9 Acute kidney failure, unspecified; E11.40 Type 2 diabetes mellitus with diabetic neuropathy, unspecified; I12.9 Hypertensive chronic kidney disease with stage 1 through stage 4 chronic kidney disease, or unspecified chronic kidney disease; E03.9 Hypothyroidism, unspecified; R42 Dizziness and giddiness; R26.89 Other abnormalities of gait and mobility; R29.6 Repeated falls; W18.09XA Striking against other object with subsequent fall, initial encounter; Y92.039 Unspecified place in apartment as the place of occurrence of the external cause; Y93.E9 Activity, other interior property and clothing maintenance; Y99.8 Other external cause status; E11.65 Type 2 diabetes mellitus with hyperglycemia; E11.22 Type 2 diabetes mellitus with diabetic chronic kidney disease; G62.0 Drug-induced polyneuropathy; T45.1X5S Adverse effect of antineoplastic and immunosuppressive drugs, sequela; E66.9 Obesity, unspecified; E11.51 Type 2 diabetes mellitus with diabetic peripheral angiopathy without gangrene; K58.9 Irritable bowel syndrome, unspecified; J45.909 Unspecified asthma, uncomplicated; M81.0 Age-related osteoporosis without current pathological fracture; F32.A Depression, unspecified; F41.9 Anxiety disorder, unspecified; Z90.49 Acquired absence of other specified parts of digestive tract; Z89.421 Acquired absence of other right toe(s); N18.30 Chronic kidney disease, stage 3 unspecified; Z68.30 Body mass index [BMI] 30.0-30.9, adult; Z79.82 Long term (current) use of aspirin; Z79.4 Long term (current) use of insulin; Z79.890 Hormone replacement therapy; Z90.13 Acquired absence of bilateral breasts and nipples; Z88.0 Allergy status to penicillin; Z79.899 Other long term (current) drug therapy; Z85.3 Personal history of malignant neoplasm of breast; Z92.21 Personal history of antineoplastic chemotherapy; R53.1 Weakness

== ENCOUNTER → 2022-04-14 | Outpatient (CLI) | payer MEDICARE ==
[~2022-04-14] MED LIST changes: +LEVO150T7 PO; +OXYC-517 PO; +ROLLMIS8 XX; +TRUL0.5I SC
== END ==
LOC: M SOG 08:35
PROVIDERS: ATTEND Orthopaedic Surgery Hand Surgery
DX: M25.571 Pain in right ankle and joints of right foot (principal); S82.434D Nondisplaced oblique fracture of shaft of right fibula, subsequent encounter for closed fracture with routine healing

== ENCOUNTER → 2022-05-04 | Outpatient (CLI) | payer MEDICARE | LOC: M SOG 08:52 | PROVIDERS: ATTEND Orthopaedic Surgery Hand Surgery | DX: S82.831D Other fracture of upper and lower end of right fibula, subsequent encounter for closed fracture with routine healing (principal); M25.512 Pain in left shoulder; W18.30XA Fall on same level, unspecified, initial encounter; Y92.009 Unspecified place in unspecified non-institutional (private) residence as the place of occurrence of the external cause ==

== ENCOUNTER → 2022-10-20 | Outpatient (REF) | payer MEDICARE, OTHER ==
[2022-10-20 17:25] LABS: BASO # 0.1 10^3/uL (0.0-0.2); BASO % 1.1 % (0.0-1.0); EOS # 0.2 10^3/uL (0.0-0.5); EOS % 3.2 % (0.0-3.0); HEMATOCRIT 34.1 % (36.0-47.0); HEMOGLOBIN 10.6 g/dl (12.0-15.5); LYMPH % 29.4 % (24.0-44.0); MEAN CORPUSCULAR HEMOGLOBIN 24.9 pg (27.0-33.0); MEAN CORPUSCULAR HGB CONC 31.1 g/dl (32.0-36.5); MEAN CORPUSCULAR VOLUME 80.2 fl (80.0-96.0); MONO # 0.6 10^3/uL (0.0-0.8); MONO % 8.3 % (2.0-8.0); NEUTROPHILS # 3.8 10^3/uL (1.5-8.5); NEUTROPHILS % 56.6 % (36.0-66.0); PLATELET COUNT, AUTOMATED 216 10^3/uL (150-450); RED BLOOD COUNT 4.25 10^6/uL (4.00-5.40); WHITE BLOOD COUNT 6.6 10^3/uL (4.0-10.0)
[2022-10-20 17:54] LABS: ALBUMIN 3.4 G/DL (3.2-5.2); ALKALINE PHOSPHATASE 73 U/L (46-116); ALT/SGPT 12 U/L (7.0-40); AST/SGOT 12 U/L (<34); BILIRUBIN,TOTAL 0.7 MG/DL (0.3-1.2); BLOOD UREA NITROGEN 20 MG/DL (9-23); CARBON DIOXIDE LEVEL 28 MMOL/L (20-31); CHLORIDE LEVEL 108 MMOL/L (98-107); CHOLESTEROL LEVEL 122 MG/DL (<200); CHOLESTEROL RISK RATIO 2.76 (<5); CREATININE FOR GFR 0.94 MG/DL (0.55-1.30); GLOMERULAR FILTRATION RATE > 60.0 (>39); GLUCOSE, FASTING 182 MG/DL (74-106); HDL CHOLESTEROL 44.1 MG/DL (>40); LDL CHOLESTEROL 46.7 MG/DL (<100); NON-HDL-C 77.9 MG/DL; POTASSIUM SERUM 3.9 MMOL/L (3.5-5.1); SODIUM LEVEL 141 MMOL/L (136-145); TOTAL PROTEIN 6.6 G/DL (5.7-8.2); TRIGLYCERIDES LEVEL 156 MG/DL (<150)
[2022-10-20 17:56] LABS: THYROID STIMULATING HORMONE 13.868 uIU/ML (0.55-4.78); TOTAL 25(OH) VITAMIN D 42.2 NG/ML (20.0-100.0)
== END ==
LOC: M LAB REF 16:39
PROVIDERS: ATTEND Nurse Practitioner Family
DX: Z13.228 Encounter for screening for other metabolic disorders (principal)

== ENCOUNTER 2022-10-27 20:00 | Inpatient (IN) | payer MEDICARE, OTHER ==
[~2022-10-27] VITALS: Ht 162.6 cm; Wt 88.6 kg
[2022-10-27] MEDS ORDERED: MORPHINE 4 MG/ML 1ML VIAL IV ONE ×2 (20:20→21:40)
[2022-10-27] MEDS ORDERED: ONDANSETRON 4MG 2ML VIAL IV ONE (20:20)
[2022-10-27 20:52] LABS: BASO # 0.1 10^3/uL (0.0-0.2); BASO % 0.7 % (0.0-1.0); EOS # 0.3 10^3/uL (0.0-0.5); EOS % 2.7 % (0.0-3.0); HEMATOCRIT 34.4 % (36.0-47.0); HEMOGLOBIN 10.9 g/dl (12.0-15.5); LYMPH # 2.4 10^3/uL (1.5-5.0); LYMPH % 24.6 % (24.0-44.0); MEAN CORPUSCULAR HEMOGLOBIN 25.2 pg (27.0-33.0); MEAN CORPUSCULAR HGB CONC 31.7 g/dl (32.0-36.5); MEAN CORPUSCULAR VOLUME 79.4 fl (80.0-96.0); MONO # 0.9 10^3/uL (0.0-0.8); MONO % 8.9 % (2.0-8.0); NEUTROPHILS # 5.9 10^3/uL (1.5-8.5); NEUTROPHILS % 61.8 % (36.0-66.0); RED BLOOD COUNT 4.33 10^6/uL (4.00-5.40); WHITE BLOOD COUNT 9.6 10^3/uL (4.0-10.0)
[2022-10-27 21:03] LABS: INR 0.94; PROTHROMBIN TIME 12.8 SECONDS (12.5-14.5)
[2022-10-27 21:13] LABS: ALBUMIN 3.4 G/DL (3.2-5.2); BILIRUBIN,DIRECT 0.4 MG/DL (<0.4); BILIRUBIN,TOTAL 1.2 MG/DL (0.3-1.2); CALCIUM LEVEL 8.5 MG/DL (8.3-10.6); CREATININE FOR GFR 0.98 MG/DL (0.55-1.30); GLOMERULAR FILTRATION RATE 59.4 (>39); POTASSIUM SERUM 3.9 MMOL/L (3.5-5.1); TOTAL PROTEIN 6.6 G/DL (5.7-8.2)
[2022-10-27 21:20] LABS: RSV AMPLIFICATION NEGATIVE (NEGATIVE)
[2022-10-27] MEDS ORDERED: DULO1CAP4 (21:29)
[2022-10-27] MEDS ORDERED: LANTINJ4 (21:29)
[2022-10-27] MEDS ORDERED: NOVOINJ3 (21:29)
[2022-10-27] MEDS ORDERED: PANT40TA29 (21:29)
[2022-10-27] MEDS ORDERED: BISO1TAB18 (21:29)
[2022-10-27] MEDS ORDERED: ROSU40TA4 (21:29)
[2022-10-27] MEDS ORDERED: ACETAMINOPHEN 1000MG 100ML IV BAG IV ONE (21:35)
[2022-10-27] MEDS ORDERED: hydrALAZINE 20MG/ML 1ML VIAL IV ONE (22:50)
[2022-10-27] MEDS ORDERED: ONDANSETRON 4MG 2ML VIAL IV PRN (23:55)
[2022-10-27] MEDS ORDERED: PROMETHAZINE 25MG/ML 1ML VIAL IV ONE (23:55)
[2022-10-28] VITALS (7 sets, daily range): BP systolic 113–149; BP diastolic 59–78
[2022-10-28] MEDS ORDERED: DULO20CA27 PO (01:08)
[2022-10-28] MEDS ORDERED: DICL1GEL3 TOP (01:08)
[2022-10-28] MEDS ORDERED: INSULANT SC ×2 (01:08)
[2022-10-28] MEDS ORDERED: BYDU2INJ7 SC (01:08)
[2022-10-28] MEDS ORDERED: BISO1TAB18 PO (01:08)
[2022-10-28] MEDS ORDERED: PANT-23 PO (01:08)
[2022-10-28] MEDS ORDERED: HOME MED LIST COMPLETE! XX SCH (01:10)
[2022-10-28] MEDS ORDERED: hydrALAZINE 20MG/ML 1ML VIAL IV PRN (01:15)
[2022-10-28] MEDS ORDERED: COMBIVENT RESPIMAT 100-20MCG INHALER 4GM INH PRN (01:35)
[2022-10-28] MEDS ORDERED: LR 1,000 ML IV SCH ×2 (01:45→19:30)
[2022-10-28] MEDS ORDERED: GLUCAGON INJ 1MG VIAL SC PRN (01:45)
[2022-10-28] MEDS ORDERED: GLUCOSE 4GM CHEW TABLET PO PRN (01:45)
[2022-10-28] MEDS ORDERED: DEXTROSE 50% 50ML SYRINGE IV PRN (01:45)
[2022-10-28 02:12] LABS: FREE T4 1.09 NG/DL (0.89-1.76); THYROID STIMULATING HORMONE 20.668 uIU/ML (0.55-4.78)
[2022-10-28 02:12] LABS: HEMOGLOBIN A1c 7.9 % (4.0-6.0)
[2022-10-28] MEDS ORDERED: MORPHINE 4 MG/ML 1ML VIAL IV ONE (03:10)
[2022-10-28] MEDS ORDERED: NORCO, ANEXSIA 5/325MG TABLET (HYDROcodone/ACETAMINOPHEN) PO PRN (03:10)
[2022-10-28] MEDS ORDERED: MORPHINE 2 MG/ML 1ML VIAL IV PRN ×2 (03:10→13:00)
[2022-10-28] MEDS ORDERED: LABETALOL 100MG/20ML VIAL IV STA (05:33)
[2022-10-28] MEDS: LEVOTHYROXINE 150MCG TABLET (0.15MG) PO SCH (06:00)
[2022-10-28] MEDS: INSULIN LISPRO (NovoLOG) PER UNIT SC SCH ×5 (06:00→23:42)
[2022-10-28 06:37] LABS: HEMATOCRIT 37.7 % (36.0-47.0); HEMOGLOBIN 11.6 g/dl (12.0-15.5); MEAN CORPUSCULAR HEMOGLOBIN 24.9 pg (27.0-33.0); MEAN CORPUSCULAR HGB CONC 30.8 g/dl (32.0-36.5); MEAN CORPUSCULAR VOLUME 80.9 fl (80.0-96.0); PLATELET COUNT, AUTOMATED 177 10^3/uL (150-450); RED BLOOD COUNT 4.66 10^6/uL (4.00-5.40); WHITE BLOOD COUNT 15.4 10^3/uL (4.0-10.0)
[2022-10-28 07:03] LABS: ALBUMIN 3.7 G/DL (3.2-5.2); ALKALINE PHOSPHATASE 83 U/L (46-116); ALT/SGPT 17 U/L (7.0-40); AST/SGOT 37 U/L (<34); BILIRUBIN,TOTAL 1.6 MG/DL (0.3-1.2); BLOOD UREA NITROGEN 19 MG/DL (9-23); CALCIUM LEVEL 8.8 MG/DL (8.3-10.6); CARBON DIOXIDE LEVEL 26 MMOL/L (20-31); CHLORIDE LEVEL 102 MMOL/L (98-107); CREATININE FOR GFR 0.96 MG/DL (0.55-1.30); GLOMERULAR FILTRATION RATE > 60.0 (>39); GLUCOSE, FASTING 254 MG/DL (74-106); MAGNESIUM LEVEL 1.4 MG/DL (1.8-2.4); SODIUM LEVEL 138 MMOL/L (136-145); TOTAL PROTEIN 7.1 G/DL (5.7-8.2)
[2022-10-28] MEDS ORDERED: D5W/0.45% SODIUM CHLORIDE 1,000 ML IV SCH (07:10)
[2022-10-28] MEDS: METOPROLOL 5 MG/5 ML VIAL IV SCH ×3 (07:30→07:40)
[2022-10-28] MEDS: PANTOPRAZOLE 40MG TAB (PROTONIX) PO SCH ×2 (09:00→21:40)
[2022-10-28] MEDS: HYDROCHLOROthiazide 6.25MG PER 1/4TAB PO SCH (09:00)
[2022-10-28] MEDS: GABAPENTIN 300 MG CAP PO SCH ×2 (09:00→21:40)
[2022-10-28] MEDS: bisoproloL fumarate 5 MG TAB PO SCH (09:00)
[2022-10-28] MEDS: DULoxetine 20MG CAP (CYMBALTA) PO SCH (09:00)
[2022-10-28] MEDS ORDERED: BUPIVACAINE LIPOSOME/PF 1.3% 20ML VIAL (13.3MG/ML)(EXPAREL) As Ordered ONE (17:33)
[2022-10-28] MEDS ORDERED: TRANEXAMIC ACID 100 MG/ML 10ML VIAL As Ordered ONE (17:33)
[2022-10-28] MEDS ORDERED: BUPIVACAINE HCL 0.25% 30ML VIAL As Ordered ONE (17:33)
[2022-10-28] MEDS ORDERED: LIDOCAINE W/EPINEPHRINE 1% 20ML VIAL As Ordered ONE (17:33)
[2022-10-28] MEDS ORDERED: propofoL 200 MG/20 ML VIAL As Ordered ONE ×2 (17:42→19:00)
[2022-10-28] MEDS ORDERED: LIDOCAINE 2% 100MG/5ML SDV (FOR ANES.) As Ordered ONE (17:42)
[2022-10-28] MEDS ORDERED: fentaNYL 100 MCG/2 ML INJECTION As Ordered ONE (17:42)
[2022-10-28] MEDS ORDERED: MIDAZOLAM INJ 2MG/2ML VIAL As Ordered ONE (17:43)
[2022-10-28] MEDS ORDERED: ceFAZolin 2 GM/D5W 50 ML IV BAG As Ordered ONE (18:43)
[2022-10-28] MEDS ORDERED: PHENYLephrine 500MCG 5ML (100MCG/ML) SYRINGE As Ordered ONE (18:46)
[2022-10-28] MEDS ORDERED: IBUPROFEN 600MG TAB PO PRN (19:30)
[2022-10-28] MEDS ORDERED: SENNA 8.6 MG TAB (SENOKOT) PO PRN (19:30)
[2022-10-28] MEDS ORDERED: diphenhydrAMINE 50MG/ML VIAL IV PRN (19:30)
[2022-10-28] MEDS ORDERED: ONDANSETRON 4MG 2ML VIAL IV PRN (19:30)
[2022-10-28] MEDS ORDERED: oxyCODONE 5MG TAB PO PRN (19:30)
[2022-10-28] MEDS ORDERED: fentaNYL 100 MCG/2 ML INJECTION IV PRN (19:30)
[2022-10-28] MEDS: ROSUVASTATIN 10 MG TAB (CRESTOR) PO SCH (21:40)
[2022-10-28] MEDS: DOCUSATE SODIUM 100MG CAPSULE PO SCH (21:40)
[2022-10-29 00:30] VITALS: BP 144/72
[2022-10-29] MEDS: NS 1,000 ML IV SCH ×2 (01:18→15:23)
[2022-10-29] MEDS: ceFAZolin SOD 2 GM in IV 1 EA IV SCH ×2 (03:16→11:55)
[2022-10-29 04:19] VITALS: BP 140/63
[2022-10-29] MEDS: ACETAMINOPHEN TAB 650MG DOSE (2X325MG) PO PRN (04:21)
[2022-10-29] MEDS: INSULIN LISPRO (NovoLOG) PER UNIT SC SCH ×2 (06:00→21:00)
[2022-10-29] MEDS: LEVOTHYROXINE 150MCG TABLET (0.15MG) PO SCH (06:30)
[2022-10-29 08:00] VITALS: BP 155/67
[2022-10-29 08:03] LABS: HEMATOCRIT 28.8 % (36.0-47.0); MEAN CORPUSCULAR HEMOGLOBIN 25.3 pg (27.0-33.0); MEAN CORPUSCULAR HGB CONC 31.6 g/dl (32.0-36.5); MEAN CORPUSCULAR VOLUME 80.2 fl (80.0-96.0); PLATELET COUNT, AUTOMATED 200 10^3/uL (150-450); RED BLOOD COUNT 3.59 10^6/uL (4.00-5.40); WHITE BLOOD COUNT 12.3 10^3/uL (4.0-10.0)
[2022-10-29 08:05] LABS: CALCIUM LEVEL 7.2 MG/DL (8.3-10.6); CREATININE FOR GFR 1.5 MG/DL (0.55-1.30); GLOMERULAR FILTRATION RATE 36.3 (>39); POTASSIUM SERUM 4.2 MMOL/L (3.5-5.1)
[2022-10-29 08:06] LABS: C REACTIVE PROTEIN QUANTITATIV 7.8 MG/DL (<1.0)
[2022-10-29 08:19] LABS: HEMOGLOBIN 9.1 g/dl (12.0-15.5)
[2022-10-29] MEDS: GABAPENTIN 300 MG CAP PO SCH ×2 (09:40→21:15)
[2022-10-29] MEDS: bisoproloL fumarate 5 MG TAB PO SCH (09:40)
[2022-10-29] MEDS: PANTOPRAZOLE 40MG TAB (PROTONIX) PO SCH ×2 (09:40→21:16)
[2022-10-29] MEDS: DULoxetine 20MG CAP (CYMBALTA) PO SCH (09:40)
[2022-10-29] MEDS: DOCUSATE SODIUM 100MG CAPSULE PO SCH ×2 (09:40→21:15)
[2022-10-29] MEDS: HYDROCHLOROthiazide 6.25MG PER 1/4TAB PO SCH (09:41)
[2022-10-29] MEDS ORDERED: MORPHINE 2 MG/ML 1ML VIAL IV ONE (15:00)
[2022-10-29] MEDS ORDERED: PERCOCET 5MG/325MG TAB PO ONE (15:00)
[2022-10-29 18:00] VITALS: BP 133/63
[2022-10-29] MEDS: RIVAROXABAN 10MG TAB (XARELTO) PO SCH (18:26)
[2022-10-29 19:03] LABS: CALCIUM LEVEL 7.7 MG/DL (8.3-10.6); CREATININE FOR GFR 1.45 MG/DL (0.55-1.30); GLOMERULAR FILTRATION RATE 37.8 (>39); POTASSIUM SERUM 4.1 MMOL/L (3.5-5.1)
[2022-10-29 19:43] VITALS: BP 142/65
[2022-10-29] MEDS: ROSUVASTATIN 10 MG TAB (CRESTOR) PO SCH (21:16)
[2022-10-29] MEDS: PERCOCET 5MG/325MG TAB PO PRN (21:16)
[2022-10-29] MEDS: LEVEMIR (INSULIN DETEMIR) 1 UNITS/0.01ML SC SCH (21:17)
[2022-10-29 23:50] VITALS: BP 113/55
[2022-10-30] MEDS: NS 1,000 ML IV SCH (05:12)
[2022-10-30] MEDS: LEVOTHYROXINE 150MCG TABLET (0.15MG) PO SCH (05:12)
[2022-10-30 05:14] VITALS: BP 153/68
[2022-10-30] MEDS: PERCOCET 5MG/325MG TAB PO PRN ×3 (05:18→17:22)
[2022-10-30 06:54] LABS: HEMATOCRIT 27.3 % (36.0-47.0); HEMOGLOBIN 8.5 g/dl (12.0-15.5); MEAN CORPUSCULAR HEMOGLOBIN 25.4 pg (27.0-33.0); MEAN CORPUSCULAR HGB CONC 31.1 g/dl (32.0-36.5); MEAN CORPUSCULAR VOLUME 81.7 fl (80.0-96.0); PLATELET COUNT, AUTOMATED 164 10^3/uL (150-450); RED BLOOD COUNT 3.34 10^6/uL (4.00-5.40); WHITE BLOOD COUNT 10.6 10^3/uL (4.0-10.0)
[2022-10-30 07:25] LABS: CALCIUM LEVEL 7.3 MG/DL (8.3-10.6); CREATININE FOR GFR 1.58 MG/DL (0.55-1.30); GLOMERULAR FILTRATION RATE 34.2 (>39); POTASSIUM SERUM 4.3 MMOL/L (3.5-5.1)
[2022-10-30 08:00] VITALS: BP 138/69
[2022-10-30] MEDS: GABAPENTIN 300 MG CAP PO SCH ×2 (08:13→21:11)
[2022-10-30] MEDS: DULoxetine 20MG CAP (CYMBALTA) PO SCH (08:13)
[2022-10-30] MEDS: DOCUSATE SODIUM 100MG CAPSULE PO SCH ×2 (08:13→21:11)
[2022-10-30] MEDS: PANTOPRAZOLE 40MG TAB (PROTONIX) PO SCH ×2 (08:13→21:11)
[2022-10-30] MEDS: bisoproloL fumarate 5 MG TAB PO SCH (08:14)
[2022-10-30] MEDS: LEVEMIR (INSULIN DETEMIR) 1 UNITS/0.01ML SC SCH ×2 (08:14→21:11)
[2022-10-30] MEDS: INSULIN LISPRO (NovoLOG) PER UNIT SC SCH ×4 (08:14→21:00)
[2022-10-30] MEDS ORDERED: NS 0.45% 1,000 ML IV ONE (08:35)
[2022-10-30] MEDS ORDERED: MIRALAX *UNIT DOSE* 17GM PACKET PO PRN (08:40)
[2022-10-30] MEDS ORDERED: MOM 30ML SUSPENSION UDC PO PRN (08:40)
[2022-10-30] MEDS: CIPROFLOXACIN 200 MG in IV 1 EA IV SCH ×2 (10:16→21:11)
[2022-10-30 11:58] VITALS: BP 144/69
[2022-10-30] MEDS: NS 0.45% 1,000 ML IV SCH (14:52)
[2022-10-30] MEDS: RIVAROXABAN 10MG TAB (XARELTO) PO SCH (17:22)
[2022-10-30 20:00] VITALS: BP 136/63
[2022-10-30] MEDS: ROSUVASTATIN 10 MG TAB (CRESTOR) PO SCH (21:11)
[2022-10-31] VITALS: BP 134/61
[2022-10-31 04:00] VITALS: BP 134/61
[2022-10-31] MEDS: PERCOCET 5MG/325MG TAB PO PRN ×3 (04:06→16:47)
[2022-10-31] MEDS: LEVOTHYROXINE 25MCG TABLET (0.025MG) PO SCH (05:25)
[2022-10-31] MEDS: LEVOTHYROXINE 150MCG TABLET (0.15MG) PO SCH (05:25)
[2022-10-31 07:10] LABS: HEMATOCRIT 26.8 % (36.0-47.0); HEMOGLOBIN 8.3 g/dl (12.0-15.5); MEAN CORPUSCULAR HEMOGLOBIN 25.2 pg (27.0-33.0); MEAN CORPUSCULAR VOLUME 81.2 fl (80.0-96.0); PLATELET COUNT, AUTOMATED 197 10^3/uL (150-450); WHITE BLOOD COUNT 10.3 10^3/uL (4.0-10.0)
[2022-10-31 07:30] LABS: C REACTIVE PROTEIN QUANTITATIV 22.7 MG/DL (<1.0); CALCIUM LEVEL 7.1 MG/DL (8.3-10.6); CREATININE FOR GFR 1.7 MG/DL (0.55-1.30); GLOMERULAR FILTRATION RATE 31.5 (>39); POTASSIUM SERUM 4.4 MMOL/L (3.5-5.1)
[2022-10-31 08:00] VITALS: BP 143/65
[2022-10-31] MEDS: LEVEMIR (INSULIN DETEMIR) 1 UNITS/0.01ML SC SCH ×2 (08:25→20:09)
[2022-10-31] MEDS: GABAPENTIN 300 MG CAP PO SCH ×2 (08:28→20:35)
[2022-10-31] MEDS: bisoproloL fumarate 5 MG TAB PO SCH (08:28)
[2022-10-31] MEDS: DOCUSATE SODIUM 100MG CAPSULE PO SCH (08:28)
[2022-10-31] MEDS: PANTOPRAZOLE 40MG TAB (PROTONIX) PO SCH ×2 (08:29→20:35)
[2022-10-31] MEDS: INSULIN LISPRO (NovoLOG) PER UNIT SC SCH ×4 (08:29→20:09)
[2022-10-31] MEDS: NS 0.45% 1,000 ML IV SCH (08:29)
[2022-10-31] MEDS: CIPROFLOXACIN 250MG TAB PO SCH ×2 (10:23→17:08)
[2022-10-31] MEDS ORDERED: NS 1,000 ML IV ONE (10:30)
[2022-10-31] MEDS: SENOKOT S TAB PO SCH ×2 (12:09→20:35)
[2022-10-31] MEDS: MOM 30ML SUSPENSION UDC PO SCH ×3 (12:09→20:35)
[2022-10-31] MEDS: MIRALAX *UNIT DOSE* 17GM PACKET PO SCH ×2 (12:09→20:35)
[2022-10-31] MEDS: NS 1,000 ML IV SCH ×2 (12:10→17:08)
[2022-10-31 16:00] VITALS: BP 130/75
[2022-10-31] MEDS: RIVAROXABAN 10MG TAB (XARELTO) PO SCH (17:08)
[2022-10-31 19:38] LABS: CALCIUM LEVEL 7.3 MG/DL (8.3-10.6); CREATININE FOR GFR 1.44 MG/DL (0.55-1.30); GLOMERULAR FILTRATION RATE 38.1 (>39); POTASSIUM SERUM 4.3 MMOL/L (3.5-5.1)
[2022-10-31 19:49] VITALS: BP 142/63
[2022-10-31] MEDS: ROSUVASTATIN 10 MG TAB (CRESTOR) PO SCH (20:35)
[2022-10-31] MEDS: ACETAMINOPHEN TAB 650MG DOSE (2X325MG) PO PRN (20:36)
[2022-11-01] MEDS: MOM 30ML SUSPENSION UDC PO SCH ×2 (00:13→03:29)
[2022-11-01] MEDS: NS 1,000 ML IV SCH (00:47)
[2022-11-01 01:59] LABS: CALCIUM LEVEL 7.2 MG/DL (8.3-10.6); CREATININE FOR GFR 1.42 MG/DL (0.55-1.30); GLOMERULAR FILTRATION RATE 38.7 (>39); POTASSIUM SERUM 4.6 MMOL/L (3.5-5.1)
[2022-11-01 03:27] VITALS: BP 138/68
[2022-11-01] MEDS: CIPROFLOXACIN 250MG TAB PO SCH ×2 (06:06→17:10)
[2022-11-01] MEDS: LEVOTHYROXINE 25MCG TABLET (0.025MG) PO SCH (06:06)
[2022-11-01] MEDS: LEVOTHYROXINE 150MCG TABLET (0.15MG) PO SCH (06:06)
[2022-11-01] MEDS: PERCOCET 5MG/325MG TAB PO PRN ×2 (06:07→15:16)
[2022-11-01] MEDS: MIRALAX *UNIT DOSE* 17GM PACKET PO SCH (09:00)
[2022-11-01] MEDS: INSULIN LISPRO (NovoLOG) PER UNIT SC SCH ×3 (09:00→17:10)
[2022-11-01 09:01] VITALS: BP 138/68
[2022-11-01] MEDS: SENOKOT S TAB PO SCH (09:01)
[2022-11-01] MEDS: LEVEMIR (INSULIN DETEMIR) 1 UNITS/0.01ML SC SCH (09:01)
[2022-11-01] MEDS: bisoproloL fumarate 5 MG TAB PO SCH (09:01)
[2022-11-01] MEDS: PANTOPRAZOLE 40MG TAB (PROTONIX) PO SCH (09:02)
[2022-11-01] MEDS: GABAPENTIN 300 MG CAP PO SCH (09:02)
[2022-11-01] MEDS ORDERED: NS 1,000 ML IV SCH (11:30)
[2022-11-01] MEDS ORDERED: PERCOCET PO (12:32)
[2022-11-01] MEDS ORDERED: INSUDET SC (12:32)
[2022-11-01] MEDS ORDERED: MIRA1POW3 PO (12:32)
[2022-11-01] MEDS ORDERED: LEVO25TA5 PO (12:32)
[2022-11-01] MEDS ORDERED: XARE10TA PO (12:32)
[2022-11-01] MEDS ORDERED: LEVO150T7 PO (12:32)
[2022-11-01] MEDS ORDERED: CIPR-250 PO (12:32)
[2022-11-01] MEDS ORDERED: SENN-52 PO (12:32)
[2022-11-01 14:00] VITALS: BP 151/67
[2022-11-01] MEDS: RIVAROXABAN 10MG TAB (XARELTO) PO SCH (17:10)
[2022-11-01] MEDS ORDERED: PERCOCET 5MG/325MG TAB PO SCH (21:00)
== END 2022-11-01 19:00 | DRG 481 ==
LOC: EDBD 20:00 → M ED 20:00 → M ED INP 23:52 → M MS4PR 10-28 13:20
PROVIDERS: ADMIT Internal Medicine; ATTEND General Practice
PROC: BQ11ZZZ Fluoroscopy of Left Hip (ICD-10-PCS; 2022-10-28)
PROC: 0QS706Z Reposition Left Upper Femur with Intramedullary Internal Fixation Device, Open Approach (ICD-10-PCS; principal; 2022-10-28 16:00)
DX: S72.142A Displaced intertrochanteric fracture of left femur, initial encounter for closed fracture (principal); N39.0 Urinary tract infection, site not specified; N17.9 Acute kidney failure, unspecified; B96.20 Unspecified Escherichia coli [E. coli] as the cause of diseases classified elsewhere; I10 Essential (primary) hypertension; E78.5 Hyperlipidemia, unspecified; K21.9 Gastro-esophageal reflux disease without esophagitis; J45.909 Unspecified asthma, uncomplicated; D64.9 Anemia, unspecified; W01.0XXA Fall on same level from slipping, tripping and stumbling without subsequent striking against object, initial encounter; I16.0 Hypertensive urgency; E66.9 Obesity, unspecified; R33.0 Drug induced retention of urine; K59.03 Drug induced constipation; T40.2X5A Adverse effect of other opioids, initial encounter; Y92.009 Unspecified place in unspecified non-institutional (private) residence as the place of occurrence of the external cause; E11.42 Type 2 diabetes mellitus with diabetic polyneuropathy; I25.10 Atherosclerotic heart disease of native coronary artery without angina pectoris; E03.9 Hypothyroidism, unspecified; Z85.3 Personal history of malignant neoplasm of breast; Z92.3 Personal history of irradiation; Z92.21 Personal history of antineoplastic chemotherapy; Z98.41 Cataract extraction status, right eye; Z98.42 Cataract extraction status, left eye; Z90.49 Acquired absence of other specified parts of digestive tract; Z90.13 Acquired absence of bilateral breasts and nipples; Z89.421 Acquired absence of other right toe(s); Z79.4 Long term (current) use of insulin; Z79.890 Hormone replacement therapy; Z79.899 Other long term (current) drug therapy; Z88.0 Allergy status to penicillin; Z68.33 Body mass index [BMI] 33.0-33.9, adult

== ENCOUNTER 2022-11-01 12:25 | Inpatient (IN) | payer MEDICAID, MEDICARE, OTHER ==
[~2022-11-01] VITALS: Ht 162.6 cm; Wt 89.0 kg
[~2022-11-01 12:25] MED LIST changes: +BISO1TAB18; +BISO1TAB18 PO; +BYDU2INJ7 SC; +DICL1GEL3 TOP; +DULO1CAP4; +DULO20CA27 PO; +INSULANT SC; +LANTINJ4; +NOVOINJ3; +PANT-23 PO; +PANT40TA29; +ROSU40TA4
[2022-11-01] MEDS ORDERED: SENN-52 PO (12:32)
[2022-11-01] MEDS ORDERED: INSUDET SC (12:32)
[2022-11-01] MEDS ORDERED: XARE10TA PO (12:32)
[2022-11-01] MEDS ORDERED: MIRA1POW3 PO (12:32)
[2022-11-01] MEDS ORDERED: PERCOCET PO (12:32)
[2022-11-01] MEDS ORDERED: LEVO25TA5 PO (12:32)
[2022-11-01] MEDS ORDERED: CIPR-250 PO (12:32)
[2022-11-01] MEDS ORDERED: LEVO150T7 PO (12:32)
[2022-11-01] MEDS ORDERED: GLUCAGON INJ 1MG VIAL SC PRN (14:50)
[2022-11-01] MEDS ORDERED: DEXTROSE 50% 50ML SYRINGE IV PRN (14:50)
[2022-11-01] MEDS ORDERED: GLUCOSE 4GM CHEW TABLET PO PRN (14:50)
[2022-11-01] MEDS ORDERED: CIPROFLOXACIN 250MG TAB PO ONE (18:00)
[2022-11-01 20:00] VITALS: BP 139/65; TEMP 98.7; O2SAT 97
[2022-11-01] MEDS: SENNA 8.6 MG TAB (SENOKOT) PO SCH (21:00)
[2022-11-01] MEDS: INSULIN LISPRO (NovoLOG) PER UNIT SC SCH (21:00)
[2022-11-01] MEDS: REMEDY PHYTOPLEX Z-GUARD PASTE 113GM TUBE (FROM STOREROOM PRODUCT) TOP SCH (21:00)
[2022-11-01] MEDS: DOCUSATE SODIUM 100MG CAPSULE PO SCH (21:14)
[2022-11-01] MEDS: PANTOPRAZOLE 40MG TAB (PROTONIX) PO SCH (21:14)
[2022-11-01] MEDS: GABAPENTIN 300 MG CAP PO SCH (21:14)
[2022-11-01] MEDS: ACETAMINOPHEN 500 MG TAB PO SCH (21:15)
[2022-11-01] MEDS: ROSUVASTATIN 10 MG TAB (CRESTOR) PO SCH (21:15)
[2022-11-01] MEDS: LEVEMIR (INSULIN DETEMIR) 1 UNITS/0.01ML SC SCH (21:16)
[2022-11-01 22:57] VITALS: O2SAT 96
[2022-11-02] MEDS: LEVOTHYROXINE 150MCG TABLET (0.15MG) PO SCH (05:35)
[2022-11-02] MEDS: LEVOTHYROXINE 25MCG TABLET (0.025MG) PO SCH (05:35)
[2022-11-02 05:40] LABS: BASO % 0.5 % (0.0-1.0); EOS # 0.3 10^3/uL (0.0-0.5); EOS % 3.3 % (0.0-3.0); HEMOGLOBIN 7.8 g/dl (12.0-15.5); LYMPH # 1.2 10^3/uL (1.5-5.0); LYMPH % 15.6 % (24.0-44.0); MEAN CORPUSCULAR HEMOGLOBIN 24.5 pg (27.0-33.0); MEAN CORPUSCULAR VOLUME 81.5 fl (80.0-96.0); MONO % 13.5 % (2.0-8.0); NEUTROPHILS % 66.2 % (36.0-66.0); PLATELET COUNT, AUTOMATED 232 10^3/uL (150-450); RED BLOOD COUNT 3.19 10^6/uL (4.00-5.40); WHITE BLOOD COUNT 7.6 10^3/uL (4.0-10.0)
[2022-11-02 06:00] VITALS: TEMP 97.7; O2SAT 98
[2022-11-02 06:06] LABS: ALBUMIN 1.8 G/DL (3.2-5.2); BILIRUBIN,TOTAL 0.8 MG/DL (0.3-1.2); CALCIUM LEVEL 7.9 MG/DL (8.3-10.6); CREATININE FOR GFR 1.41 MG/DL (0.55-1.30); POTASSIUM SERUM 4.3 MMOL/L (3.5-5.1); TOTAL PROTEIN 4.9 G/DL (5.7-8.2)
[2022-11-02] MEDS: COMBIVENT RESPIMAT 100-20MCG INHALER 4GM INH SCH ×3 (07:38→20:03)
[2022-11-02] MEDS: DULoxetine 20MG CAP (CYMBALTA) PO SCH (08:26)
[2022-11-02] MEDS: LEVEMIR (INSULIN DETEMIR) 1 UNITS/0.01ML SC SCH ×2 (08:26→21:36)
[2022-11-02] MEDS: INSULIN LISPRO (NovoLOG) PER UNIT SC SCH ×4 (08:26→21:00)
[2022-11-02] MEDS: GABAPENTIN 300 MG CAP PO SCH (08:26)
[2022-11-02] MEDS: FERROUS SULFATE 325MG TAB PO SCH ×2 (08:26→21:34)
[2022-11-02] MEDS: PANTOPRAZOLE 40MG TAB (PROTONIX) PO SCH ×2 (08:26→21:34)
[2022-11-02] MEDS: MIRALAX *UNIT DOSE* 17GM PACKET PO SCH (08:27)
[2022-11-02] MEDS: DOCUSATE SODIUM 100MG CAPSULE PO SCH ×2 (08:27→21:34)
[2022-11-02] MEDS: REMEDY PHYTOPLEX Z-GUARD PASTE 113GM TUBE (FROM STOREROOM PRODUCT) TOP SCH ×3 (08:27→21:00)
[2022-11-02] MEDS: bisoproloL fumarate 5 MG TAB PO SCH (08:27)
[2022-11-02] MEDS: ACETAMINOPHEN 500 MG TAB PO SCH ×3 (08:28→21:35)
[2022-11-02 12:14] LABS: HEMATOCRIT 25.6 % (36.0-47.0); HEMOGLOBIN 7.8 g/dl (12.0-15.5)
[2022-11-02 13:43] LABS: PERCENT SATURATION 4.7 % (13.2-45.0)
[2022-11-02 13:50] LABS: FERRITIN 416.1 NG/ML (7.3-270.7)
[2022-11-02 13:51] LABS: FOLATE 5.86 NG/ML (>5.4)
[2022-11-02 14:00] VITALS: BP 115/71; TEMP 98.2; O2SAT 94
[2022-11-02] MEDS: GABAPENTIN 100 MG CAP PO SCH ×2 (17:29→21:34)
[2022-11-02] MEDS: RIVAROXABAN 10MG TAB (XARELTO) PO SCH (17:29)
[2022-11-02 17:51] LABS: ABG BASE EXCESS 0.8 (-2.0-2.0); ABG HCO3 24.9 MMOL/L (22.0-26.0); ABG O2 SATURATION 92.5 % (95.0-99.0); ABG PARTIAL PRESSURE CO2 37.2 mmHg (35.0-45.0); ABG PARTIAL PRESSURE O2 61.3 mmHg (75.0-100.0); ABG STANDARD HCO3 25.1 MMOL/L. (22.0-26.0); ABG pH (ARTERIAL) 7.443 UNITS (7.350-7.450)
[2022-11-02 20:00] VITALS: BP 175/81; TEMP 98.2; O2SAT 100
[2022-11-02] MEDS ORDERED: IRON SUCROSE 200 MG in NS 100 ML IV ONE (20:00)
[2022-11-02] MEDS: ROSUVASTATIN 10 MG TAB (CRESTOR) PO SCH (21:34)
[2022-11-02] MEDS: SENNA 8.6 MG TAB (SENOKOT) PO SCH (21:34)
[2022-11-03 06:00] VITALS: BP 184/84; TEMP 98; O2SAT 94
[2022-11-03] MEDS: LEVOTHYROXINE 150MCG TABLET (0.15MG) PO SCH (06:16)
[2022-11-03] MEDS: bisoproloL fumarate 5 MG TAB PO SCH (06:16)
[2022-11-03] MEDS: LEVOTHYROXINE 25MCG TABLET (0.025MG) PO SCH (06:16)
[2022-11-03] MEDS: DULoxetine 20MG CAP (CYMBALTA) PO SCH (06:17)
[2022-11-03] MEDS: oxyCODONE 5MG TAB PO PRN ×2 (06:18→10:26)
[2022-11-03 06:20] VITALS: BP 184/80
[2022-11-03 06:44] LABS: BASO # 0.1 10^3/uL (0.0-0.2); BASO % 0.5 % (0.0-1.0); EOS # 0.3 10^3/uL (0.0-0.5); EOS % 3.5 % (0.0-3.0); HEMATOCRIT 26.8 % (36.0-47.0); HEMOGLOBIN 8.4 g/dl (12.0-15.5); LYMPH # 1.1 10^3/uL (1.5-5.0); LYMPH % 11.6 % (24.0-44.0); MEAN CORPUSCULAR HEMOGLOBIN 25.1 pg (27.0-33.0); MEAN CORPUSCULAR HGB CONC 31.3 g/dl (32.0-36.5); MEAN CORPUSCULAR VOLUME 80.2 fl (80.0-96.0); MONO % 11.3 % (2.0-8.0); NEUTROPHILS # 6.5 10^3/uL (1.5-8.5); NEUTROPHILS % 71.1 % (36.0-66.0); PLATELET COUNT, AUTOMATED 311 10^3/uL (150-450); RED BLOOD COUNT 3.34 10^6/uL (4.00-5.40); WHITE BLOOD COUNT 9.2 10^3/uL (4.0-10.0)
[2022-11-03] MEDS: COMBIVENT RESPIMAT 100-20MCG INHALER 4GM INH SCH ×3 (07:11→19:22)
[2022-11-03] MEDS: REMEDY PHYTOPLEX Z-GUARD PASTE 113GM TUBE (FROM STOREROOM PRODUCT) TOP SCH ×3 (09:00→21:00)
[2022-11-03] MEDS: ACETAMINOPHEN 500 MG TAB PO SCH ×3 (09:23→21:11)
[2022-11-03] MEDS: DOCUSATE SODIUM 100MG CAPSULE PO SCH ×2 (09:23→21:11)
[2022-11-03] MEDS: INSULIN LISPRO (NovoLOG) PER UNIT SC SCH ×4 (09:24→20:28)
[2022-11-03] MEDS: GABAPENTIN 100 MG CAP PO SCH ×3 (09:24→21:11)
[2022-11-03] MEDS: FERROUS SULFATE 325MG TAB PO SCH ×2 (09:25→21:11)
[2022-11-03] MEDS: FERROUS GLUCONATE 324 MG TAB PO SCH (09:25)
[2022-11-03] MEDS: PANTOPRAZOLE 40MG TAB (PROTONIX) PO SCH ×2 (09:25→21:10)
[2022-11-03] MEDS: LEVEMIR (INSULIN DETEMIR) 1 UNITS/0.01ML SC SCH ×2 (09:26→21:11)
[2022-11-03] MEDS: MIRALAX *UNIT DOSE* 17GM PACKET PO SCH (09:26)
[2022-11-03 12:30] VITALS: BP 160/78
[2022-11-03 13:59] VITALS: BP 144/68; TEMP 98.1; O2SAT 97
[2022-11-03] MEDS: RIVAROXABAN 10MG TAB (XARELTO) PO SCH (17:09)
[2022-11-03 20:24] VITALS: BP 152/65; TEMP 98.1; O2SAT 94
[2022-11-03] MEDS: ROSUVASTATIN 10 MG TAB (CRESTOR) PO SCH (21:10)
[2022-11-03] MEDS: SENNA 8.6 MG TAB (SENOKOT) PO SCH (21:11)
[2022-11-04 06:01] VITALS: BP 158/82; TEMP 97.2; O2SAT 95
[2022-11-04] MEDS: LEVOTHYROXINE 150MCG TABLET (0.15MG) PO SCH (06:15)
[2022-11-04] MEDS: LEVOTHYROXINE 25MCG TABLET (0.025MG) PO SCH (06:15)
[2022-11-04] MEDS: COMBIVENT RESPIMAT 100-20MCG INHALER 4GM INH SCH ×3 (07:30→20:50)
[2022-11-04] MEDS: REMEDY PHYTOPLEX Z-GUARD PASTE 113GM TUBE (FROM STOREROOM PRODUCT) TOP SCH ×3 (09:00→20:58)
[2022-11-04] MEDS: LEVEMIR (INSULIN DETEMIR) 1 UNITS/0.01ML SC SCH ×2 (09:12→20:56)
[2022-11-04] MEDS: INSULIN LISPRO (NovoLOG) PER UNIT SC SCH ×4 (09:12→20:58)
[2022-11-04] MEDS: GABAPENTIN 100 MG CAP PO SCH ×3 (09:13→20:55)
[2022-11-04] MEDS: DOCUSATE SODIUM 100MG CAPSULE PO SCH ×2 (09:13→20:54)
[2022-11-04] MEDS: FERROUS GLUCONATE 324 MG TAB PO SCH (09:13)
[2022-11-04] MEDS: MIRALAX *UNIT DOSE* 17GM PACKET PO SCH (09:13)
[2022-11-04] MEDS: bisoproloL fumarate 5 MG TAB PO SCH (09:17)
[2022-11-04] MEDS: ACETAMINOPHEN 500 MG TAB PO SCH ×4 (09:18→21:25)
[2022-11-04] MEDS: FERROUS SULFATE 325MG TAB PO SCH ×2 (09:19→20:55)
[2022-11-04] MEDS: PANTOPRAZOLE 40MG TAB (PROTONIX) PO SCH ×2 (09:19→20:57)
[2022-11-04] MEDS: oxyCODONE 5MG TAB PO PRN ×3 (09:19→20:56)
[2022-11-04] MEDS: DULoxetine 20MG CAP (CYMBALTA) PO SCH (09:19)
[2022-11-04 14:00] VITALS: BP 162/73; TEMP 98.1; O2SAT 97
[2022-11-04] MEDS: RIVAROXABAN 10MG TAB (XARELTO) PO SCH (17:28)
[2022-11-04 20:00] VITALS: BP 155/72; TEMP 98.1; O2SAT 95
[2022-11-04] MEDS: SENNA 8.6 MG TAB (SENOKOT) PO SCH (20:54)
[2022-11-04] MEDS: ROSUVASTATIN 10 MG TAB (CRESTOR) PO SCH (20:57)
[2022-11-04] MEDS ORDERED: TAMSULOSIN 0.4 MG CAP PO SCH (21:00)
[2022-11-05] VITALS (8 sets, daily range): BP systolic 119–190; BP diastolic 65–81; TEMP 97.2–98.3; O2SAT 94–99
[2022-11-05] MEDS: LEVOTHYROXINE 150MCG TABLET (0.15MG) PO SCH (06:15)
[2022-11-05] MEDS: LEVOTHYROXINE 25MCG TABLET (0.025MG) PO SCH (06:15)
[2022-11-05] MEDS: FERROUS SULFATE 325MG TAB PO SCH ×2 (08:26→21:31)
[2022-11-05] MEDS: FERROUS GLUCONATE 324 MG TAB PO SCH (08:26)
[2022-11-05] MEDS: GABAPENTIN 100 MG CAP PO SCH ×3 (08:26→18:16)
[2022-11-05] MEDS: PANTOPRAZOLE 40MG TAB (PROTONIX) PO SCH ×2 (08:26→21:31)
[2022-11-05] MEDS: DULoxetine 20MG CAP (CYMBALTA) PO SCH (08:26)
[2022-11-05] MEDS: DOCUSATE SODIUM 100MG CAPSULE PO SCH ×2 (08:26→21:31)
[2022-11-05] MEDS: bisoproloL fumarate 5 MG TAB PO SCH (08:27)
[2022-11-05] MEDS: MIRALAX *UNIT DOSE* 17GM PACKET PO SCH (08:27)
[2022-11-05] MEDS: LEVEMIR (INSULIN DETEMIR) 1 UNITS/0.01ML SC SCH ×2 (08:28→21:30)
[2022-11-05] MEDS: INSULIN LISPRO (NovoLOG) PER UNIT SC SCH ×4 (08:28→21:00)
[2022-11-05] MEDS: ACETAMINOPHEN 500 MG TAB PO SCH ×3 (08:29→18:16)
[2022-11-05] MEDS: oxyCODONE 5MG TAB PO PRN (08:29)
[2022-11-05] MEDS: REMEDY PHYTOPLEX Z-GUARD PASTE 113GM TUBE (FROM STOREROOM PRODUCT) TOP SCH ×3 (08:35→21:31)
[2022-11-05] MEDS: COMBIVENT RESPIMAT 100-20MCG INHALER 4GM INH SCH ×3 (09:11→20:07)
[2022-11-05] MEDS: TAMSULOSIN 0.4 MG CAP PO SCH ×2 (10:06→21:31)
[2022-11-05 10:44] LABS: HEMATOCRIT 24.8 % (36.0-47.0); HEMOGLOBIN 7.8 g/dl (12.0-15.5); MEAN CORPUSCULAR HEMOGLOBIN 25.6 pg (27.0-33.0); MEAN CORPUSCULAR HGB CONC 31.5 g/dl (32.0-36.5); MEAN CORPUSCULAR VOLUME 81.3 fl (80.0-96.0); PLATELET COUNT, AUTOMATED 325 10^3/uL (150-450); RED BLOOD COUNT 3.05 10^6/uL (4.00-5.40); WHITE BLOOD COUNT 9.8 10^3/uL (4.0-10.0)
[2022-11-05 11:16] LABS: CALCIUM LEVEL 8.1 MG/DL (8.3-10.6); CREATININE FOR GFR 1.22 MG/DL (0.55-1.30); GLOMERULAR FILTRATION RATE 46.1 (>39)
[2022-11-05 11:22] LABS: ATYPICAL LYMPH 4 % (0-5); BASOPHILS 2 % (0-1); EOSINOPHILS 2 % (0-3); LYMPHOCYTES 8 % (16-44); METAMYELOCYTES 3 % (0-0); MONOCYTES 4 % (0-5); MYELOCYTES 1 % (0-0); NEUTROPHILS 74 % (28-66)
[2022-11-05 11:24] LABS: ANISOCYTOSIS 2+; HYPOCHROMASIA 1+; PLATELET ESTIMATE NORMAL (NORMAL)
[2022-11-05] MEDS ORDERED: ACETAMINOPHEN TAB 650MG DOSE (2X325MG) PO ONE ×2 (13:00→14:00)
[2022-11-05] MEDS ORDERED: diphenhydrAMINE 25MG CAP PO ONE (14:00)
[2022-11-05] MEDS ORDERED: FUROSEMIDE 20MG/2ML VIAL IV ONE (16:00)
[2022-11-05] MEDS: RIVAROXABAN 10MG TAB (XARELTO) PO SCH (18:16)
[2022-11-05] MEDS: ROSUVASTATIN 10 MG TAB (CRESTOR) PO SCH (21:31)
[2022-11-05] MEDS: SENNA 8.6 MG TAB (SENOKOT) PO SCH (21:31)
[2022-11-06] MEDS: LEVOTHYROXINE 25MCG TABLET (0.025MG) PO SCH (05:35)
[2022-11-06] MEDS: LEVOTHYROXINE 150MCG TABLET (0.15MG) PO SCH (05:35)
[2022-11-06] MEDS: oxyCODONE 5MG TAB PO PRN ×2 (05:36→20:25)
[2022-11-06 06:00] VITALS: BP 162/68; TEMP 97.8; O2SAT 96
[2022-11-06] MEDS: GABAPENTIN 100 MG CAP PO SCH ×3 (06:45→18:02)
[2022-11-06] MEDS: ACETAMINOPHEN 500 MG TAB PO SCH ×3 (06:45→18:02)
[2022-11-06 07:38] LABS: HEMATOCRIT 29.5 % (36.0-47.0); HEMOGLOBIN 9.5 g/dl (12.0-15.5); MEAN CORPUSCULAR HEMOGLOBIN 26.1 pg (27.0-33.0); MEAN CORPUSCULAR HGB CONC 32.2 g/dl (32.0-36.5); PLATELET COUNT, AUTOMATED 328 10^3/uL (150-450); RED BLOOD COUNT 3.64 10^6/uL (4.00-5.40); WHITE BLOOD COUNT 10.4 10^3/uL (4.0-10.0)
[2022-11-06 08:07] LABS: CALCIUM LEVEL 8.3 MG/DL (8.3-10.6); CREATININE FOR GFR 1.17 MG/DL (0.55-1.30); GLOMERULAR FILTRATION RATE 48.4 (>39); POTASSIUM SERUM 3.9 MMOL/L (3.5-5.1)
[2022-11-06] MEDS: FERROUS GLUCONATE 324 MG TAB PO SCH (08:21)
[2022-11-06] MEDS: FERROUS SULFATE 325MG TAB PO SCH ×2 (08:21→20:24)
[2022-11-06] MEDS: PANTOPRAZOLE 40MG TAB (PROTONIX) PO SCH ×2 (08:21→20:24)
[2022-11-06] MEDS: DULoxetine 20MG CAP (CYMBALTA) PO SCH (08:21)
[2022-11-06] MEDS: bisoproloL fumarate 5 MG TAB PO SCH (08:21)
[2022-11-06] MEDS: TAMSULOSIN 0.4 MG CAP PO SCH ×2 (08:21→20:24)
[2022-11-06] MEDS: INSULIN LISPRO (NovoLOG) PER UNIT SC SCH ×4 (08:22→20:23)
[2022-11-06] MEDS: DOCUSATE SODIUM 100MG CAPSULE PO SCH ×2 (08:22→20:24)
[2022-11-06] MEDS: LEVEMIR (INSULIN DETEMIR) 1 UNITS/0.01ML SC SCH ×2 (08:22→20:23)
[2022-11-06] MEDS: MIRALAX *UNIT DOSE* 17GM PACKET PO SCH (08:23)
[2022-11-06] MEDS: COMBIVENT RESPIMAT 100-20MCG INHALER 4GM INH SCH ×3 (08:51→19:55)
[2022-11-06] MEDS ORDERED: SPIRONOLACTONE 12.5MG PER 1/2 TABLET PO SCH (09:00)
[2022-11-06] MEDS: REMEDY PHYTOPLEX Z-GUARD PASTE 113GM TUBE (FROM STOREROOM PRODUCT) TOP SCH ×3 (09:47→21:00)
[2022-11-06] MEDS: FUROSEMIDE 20 MG TAB PO SCH (12:05)
[2022-11-06 14:00] VITALS: BP 141/68; TEMP 97.8; O2SAT 98
[2022-11-06] MEDS: RIVAROXABAN 10MG TAB (XARELTO) PO SCH (17:14)
[2022-11-06 19:32] VITALS: BP 175/77; TEMP 98.1; O2SAT 96
[2022-11-06] MEDS: ROSUVASTATIN 10 MG TAB (CRESTOR) PO SCH (20:24)
[2022-11-06] MEDS: SENNA 8.6 MG TAB (SENOKOT) PO SCH (20:24)
[2022-11-07] MEDS: LEVOTHYROXINE 150MCG TABLET (0.15MG) PO SCH (05:27)
[2022-11-07] MEDS: LEVOTHYROXINE 25MCG TABLET (0.025MG) PO SCH (05:27)
[2022-11-07 05:58] VITALS: BP 148/80
[2022-11-07 06:00] VITALS: TEMP 97.6; O2SAT 97
[2022-11-07] MEDS: INSULIN LISPRO (NovoLOG) PER UNIT SC SCH ×4 (07:27→21:00)
[2022-11-07] MEDS: ACETAMINOPHEN 500 MG TAB PO SCH ×3 (07:27→18:06)
[2022-11-07] MEDS: GABAPENTIN 100 MG CAP PO SCH ×3 (07:31→18:06)
[2022-11-07] MEDS: MIRALAX *UNIT DOSE* 17GM PACKET PO SCH (07:50)
[2022-11-07] MEDS: TAMSULOSIN 0.4 MG CAP PO SCH ×2 (08:08→21:22)
[2022-11-07] MEDS: DULoxetine 20MG CAP (CYMBALTA) PO SCH (08:08)
[2022-11-07] MEDS: FUROSEMIDE 20 MG TAB PO SCH (08:08)
[2022-11-07] MEDS: FERROUS GLUCONATE 324 MG TAB PO SCH (08:08)
[2022-11-07] MEDS: PANTOPRAZOLE 40MG TAB (PROTONIX) PO SCH ×2 (08:08→21:22)
[2022-11-07] MEDS: DOCUSATE SODIUM 100MG CAPSULE PO SCH ×3 (08:08→21:22)
[2022-11-07] MEDS: bisoproloL fumarate 5 MG TAB PO SCH (08:08)
[2022-11-07] MEDS: LEVEMIR (INSULIN DETEMIR) 1 UNITS/0.01ML SC SCH ×2 (08:08→21:22)
[2022-11-07] MEDS: FERROUS SULFATE 325MG TAB PO SCH ×2 (08:08→21:23)
[2022-11-07] MEDS: REMEDY PHYTOPLEX Z-GUARD PASTE 113GM TUBE (FROM STOREROOM PRODUCT) TOP SCH ×3 (08:10→21:31)
[2022-11-07] MEDS: COMBIVENT RESPIMAT 100-20MCG INHALER 4GM INH SCH ×3 (08:39→19:59)
[2022-11-07] MEDS: oxyCODONE 5MG TAB PO PRN (09:20)
[2022-11-07] MEDS ORDERED: FERRIC CARBOXYMALTOSE INJ 750 MG, VIAL MATE ADAPTER 1 EACH in NS 250 ML IV ONE (12:00)
[2022-11-07 14:00] VITALS: BP 139/65; TEMP 97.1; O2SAT 100
[2022-11-07] MEDS: RIVAROXABAN 10MG TAB (XARELTO) PO SCH (17:03)
[2022-11-07 20:00] VITALS: BP 181/70; TEMP 96.6; O2SAT 99
[2022-11-07] MEDS: SENNA 8.6 MG TAB (SENOKOT) PO SCH (21:22)
[2022-11-07] MEDS: ROSUVASTATIN 10 MG TAB (CRESTOR) PO SCH (21:23)
[2022-11-08 05:35] VITALS: BP 133/62; TEMP 97; O2SAT 94
[2022-11-08] MEDS: LEVOTHYROXINE 25MCG TABLET (0.025MG) PO SCH (06:12)
[2022-11-08] MEDS: LEVOTHYROXINE 150MCG TABLET (0.15MG) PO SCH (06:12)
[2022-11-08 06:28] LABS: ALBUMIN 2.2 G/DL (3.2-5.2); CALCIUM LEVEL 8.3 MG/DL (8.3-10.6); CREATININE FOR GFR 1.11 MG/DL (0.55-1.30); GLOMERULAR FILTRATION RATE 51.4 (>39); MAGNESIUM LEVEL 1.6 MG/DL (1.8-2.4); PHOSPHORUS LEVEL 4.6 MG/DL (2.4-5.1)
[2022-11-08] MEDS: ACETAMINOPHEN 500 MG TAB PO SCH ×3 (06:33→18:44)
[2022-11-08] MEDS: GABAPENTIN 100 MG CAP PO SCH ×3 (06:33→18:44)
[2022-11-08] MEDS: COMBIVENT RESPIMAT 100-20MCG INHALER 4GM INH SCH ×3 (08:21→20:02)
[2022-11-08] MEDS: INSULIN LISPRO (NovoLOG) PER UNIT SC SCH ×4 (08:55→21:00)
[2022-11-08] MEDS: PANTOPRAZOLE 40MG TAB (PROTONIX) PO SCH ×2 (08:55→21:08)
[2022-11-08] MEDS: FERROUS SULFATE 325MG TAB PO SCH ×2 (08:55→21:08)
[2022-11-08] MEDS: DOCUSATE SODIUM 100MG CAPSULE PO SCH ×2 (08:55→21:08)
[2022-11-08] MEDS: TAMSULOSIN 0.4 MG CAP PO SCH ×2 (08:55→21:06)
[2022-11-08] MEDS: LEVEMIR (INSULIN DETEMIR) 1 UNITS/0.01ML SC SCH ×2 (08:55→21:06)
[2022-11-08] MEDS: DULoxetine 20MG CAP (CYMBALTA) PO SCH (08:55)
[2022-11-08] MEDS: MIRALAX *UNIT DOSE* 17GM PACKET PO SCH (08:56)
[2022-11-08] MEDS: FUROSEMIDE 20 MG TAB PO SCH (08:56)
[2022-11-08] MEDS: REMEDY PHYTOPLEX Z-GUARD PASTE 113GM TUBE (FROM STOREROOM PRODUCT) TOP SCH ×3 (08:56→21:09)
[2022-11-08] MEDS: bisoproloL fumarate 5 MG TAB PO SCH (08:57)
[2022-11-08] MEDS: MAGNESIUM OXIDE 400MG TAB (MAG-OX) PO SCH ×2 (10:25→21:08)
[2022-11-08 10:35] LABS: BASO # 0.1 10^3/uL (0.0-0.2); BASO % 0.6 % (0.0-1.0); EOS # 0.2 10^3/uL (0.0-0.5); EOS % 1.7 % (0.0-3.0); HEMATOCRIT 30.4 % (36.0-47.0); HEMOGLOBIN 9.4 g/dl (12.0-15.5); LYMPH # 1.3 10^3/uL (1.5-5.0); LYMPH % 10.6 % (24.0-44.0); MEAN CORPUSCULAR HEMOGLOBIN 25.8 pg (27.0-33.0); MEAN CORPUSCULAR HGB CONC 30.9 g/dl (32.0-36.5); MEAN CORPUSCULAR VOLUME 83.5 fl (80.0-96.0); MONO % 7.6 % (2.0-8.0); NEUTROPHILS # 9.4 10^3/uL (1.5-8.5); NEUTROPHILS % 75.3 % (36.0-66.0); PLATELET COUNT, AUTOMATED 345 10^3/uL (150-450); RED BLOOD COUNT 3.64 10^6/uL (4.00-5.40); WHITE BLOOD COUNT 12.5 10^3/uL (4.0-10.0)
[2022-11-08 14:00] VITALS: BP 123/56; TEMP 97.2; O2SAT 100
[2022-11-08] MEDS: LINEZOLID 600MG TABLET (ZYVOX) PO SCH ×2 (14:45→21:08)
[2022-11-08] MEDS: SIMETHICONE 80MG CHEW TAB PO SCH ×2 (16:29→21:07)
[2022-11-08] MEDS: RIVAROXABAN 10MG TAB (XARELTO) PO SCH (18:44)
[2022-11-08] MEDS: LACTOBACILLUS ACIDOPHILUS CAP (BACID) PO SCH (18:44)
[2022-11-08 19:55] VITALS: BP 152/76; TEMP 97.8; O2SAT 98
[2022-11-08] MEDS: ROSUVASTATIN 10 MG TAB (CRESTOR) PO SCH (21:07)
[2022-11-08] MEDS: SENNA 8.6 MG TAB (SENOKOT) PO SCH (21:08)
[2022-11-08] MEDS: oxyCODONE 5MG TAB PO PRN (21:28)
[2022-11-09] MEDS: COMBIVENT RESPIMAT 100-20MCG INHALER 4GM INH SCH ×3 (05:50→19:12)
[2022-11-09] MEDS: LEVOTHYROXINE 150MCG TABLET (0.15MG) PO SCH (05:55)
[2022-11-09] MEDS: LEVOTHYROXINE 25MCG TABLET (0.025MG) PO SCH (05:55)
[2022-11-09 06:00] VITALS: BP 157/72; TEMP 97.6; O2SAT 95
[2022-11-09] MEDS: GABAPENTIN 100 MG CAP PO SCH ×3 (06:31→18:22)
[2022-11-09] MEDS: ACETAMINOPHEN 500 MG TAB PO SCH ×3 (06:31→18:23)
[2022-11-09] MEDS: MAGNESIUM OXIDE 400MG TAB (MAG-OX) PO SCH ×2 (08:45→20:16)
[2022-11-09] MEDS: SIMETHICONE 80MG CHEW TAB PO SCH ×3 (08:45→20:16)
[2022-11-09] MEDS: PANTOPRAZOLE 40MG TAB (PROTONIX) PO SCH ×2 (08:45→20:17)
[2022-11-09] MEDS: TAMSULOSIN 0.4 MG CAP PO SCH ×2 (08:45→20:16)
[2022-11-09] MEDS: DOCUSATE SODIUM 100MG CAPSULE PO SCH ×2 (08:45→20:17)
[2022-11-09] MEDS: FERROUS SULFATE 325MG TAB PO SCH ×2 (08:45→20:17)
[2022-11-09] MEDS: FUROSEMIDE 20 MG TAB PO SCH (08:46)
[2022-11-09] MEDS: MIRALAX *UNIT DOSE* 17GM PACKET PO SCH (08:46)
[2022-11-09] MEDS: LINEZOLID 600MG TABLET (ZYVOX) PO SCH ×2 (08:46→20:17)
[2022-11-09] MEDS: LACTOBACILLUS ACIDOPHILUS CAP (BACID) PO SCH ×2 (08:46→17:05)
[2022-11-09] MEDS: INSULIN LISPRO (NovoLOG) PER UNIT SC SCH ×4 (08:47→19:57)
[2022-11-09] MEDS: REMEDY PHYTOPLEX Z-GUARD PASTE 113GM TUBE (FROM STOREROOM PRODUCT) TOP SCH ×3 (08:47→20:17)
[2022-11-09] MEDS: LEVEMIR (INSULIN DETEMIR) 1 UNITS/0.01ML SC SCH ×2 (08:48→20:16)
[2022-11-09] MEDS: oxyCODONE 5MG TAB PO PRN ×2 (08:50→17:09)
[2022-11-09] MEDS: bisoproloL fumarate 5 MG TAB PO SCH (08:55)
[2022-11-09] MEDS ORDERED: DULoxetine 20MG CAP (CYMBALTA) PO SCH (09:00)
[2022-11-09] MEDS: **hydrALAZINE HCL** 25 MG TAB PO SCH ×3 (13:26→23:55)
[2022-11-09 14:00] VITALS: BP 123/51; TEMP 97.5; O2SAT 99
[2022-11-09] MEDS: RIVAROXABAN 10MG TAB (XARELTO) PO SCH (17:04)
[2022-11-09] MEDS: MAG SULF 1GM/100ML (MAG RUN) 1 GM in IV 1 EA IV SCH ×2 (17:17→18:23)
[2022-11-09 20:00] VITALS: BP 112/54; TEMP 98; O2SAT 98
[2022-11-09] MEDS: ROSUVASTATIN 10 MG TAB (CRESTOR) PO SCH (20:16)
[2022-11-09] MEDS: SENNA 8.6 MG TAB (SENOKOT) PO SCH (20:17)
[2022-11-10] MEDS: LEVOTHYROXINE 150MCG TABLET (0.15MG) PO SCH (05:48)
[2022-11-10] MEDS: **hydrALAZINE HCL** 25 MG TAB PO SCH ×3 (05:49→21:31)
[2022-11-10] MEDS: LEVOTHYROXINE 25MCG TABLET (0.025MG) PO SCH (05:49)
[2022-11-10 06:00] VITALS: BP 129/63; TEMP 97.3; O2SAT 98
[2022-11-10] MEDS: GABAPENTIN 100 MG CAP PO SCH ×3 (06:55→18:17)
[2022-11-10] MEDS: ACETAMINOPHEN 500 MG TAB PO SCH ×3 (06:55→18:18)
[2022-11-10] MEDS: oxyCODONE 5MG TAB PO SCH ×2 (06:55→12:15)
[2022-11-10 07:05] LABS: BASO # 0.1 10^3/uL (0.0-0.2); BASO % 0.6 % (0.0-1.0); EOS # 0.4 10^3/uL (0.0-0.5); EOS % 3.5 % (0.0-3.0); HEMATOCRIT 27.8 % (36.0-47.0); HEMOGLOBIN 8.6 g/dl (12.0-15.5); LYMPH # 1.5 10^3/uL (1.5-5.0); LYMPH % 13.7 % (24.0-44.0); MEAN CORPUSCULAR HEMOGLOBIN 26.1 pg (27.0-33.0); MEAN CORPUSCULAR HGB CONC 30.9 g/dl (32.0-36.5); MEAN CORPUSCULAR VOLUME 84.5 fl (80.0-96.0); MONO # 0.9 10^3/uL (0.0-0.8); MONO % 8.2 % (2.0-8.0); NEUTROPHILS # 7.6 10^3/uL (1.5-8.5); NEUTROPHILS % 71.8 % (36.0-66.0); PLATELET COUNT, AUTOMATED 314 10^3/uL (150-450); RED BLOOD COUNT 3.29 10^6/uL (4.00-5.40); WHITE BLOOD COUNT 10.6 10^3/uL (4.0-10.0)
[2022-11-10 07:24] LABS: CALCIUM LEVEL 7.8 MG/DL (8.3-10.6); CREATININE FOR GFR 1.44 MG/DL (0.55-1.30); GLOMERULAR FILTRATION RATE 38.1 (>39); POTASSIUM SERUM 4.3 MMOL/L (3.5-5.1)
[2022-11-10] MEDS: COMBIVENT RESPIMAT 100-20MCG INHALER 4GM INH SCH ×3 (07:28→20:11)
[2022-11-10] MEDS: REMEDY PHYTOPLEX Z-GUARD PASTE 113GM TUBE (FROM STOREROOM PRODUCT) TOP SCH ×3 (09:00→20:21)
[2022-11-10] MEDS: MIRALAX *UNIT DOSE* 17GM PACKET PO SCH (09:16)
[2022-11-10] MEDS: SIMETHICONE 80MG CHEW TAB PO SCH ×3 (09:17→20:19)
[2022-11-10] MEDS: LEVEMIR (INSULIN DETEMIR) 1 UNITS/0.01ML SC SCH ×2 (09:17→20:20)
[2022-11-10] MEDS: INSULIN LISPRO (NovoLOG) PER UNIT SC SCH ×4 (09:17→20:20)
[2022-11-10] MEDS: DOCUSATE SODIUM 100MG CAPSULE PO SCH ×2 (09:18→20:19)
[2022-11-10] MEDS: LACTOBACILLUS ACIDOPHILUS CAP (BACID) PO SCH ×2 (09:18→17:19)
[2022-11-10] MEDS: FUROSEMIDE 20 MG TAB PO SCH (09:18)
[2022-11-10] MEDS: PANTOPRAZOLE 40MG TAB (PROTONIX) PO SCH ×2 (09:18→20:19)
[2022-11-10] MEDS: bisoproloL fumarate 5 MG TAB PO SCH (09:18)
[2022-11-10] MEDS: MAGNESIUM OXIDE 400MG TAB (MAG-OX) PO SCH (09:18)
[2022-11-10] MEDS: LINEZOLID 600MG TABLET (ZYVOX) PO SCH ×2 (09:18→20:19)
[2022-11-10] MEDS: FERROUS SULFATE 325MG TAB PO SCH ×2 (09:18→20:19)
[2022-11-10] MEDS: TAMSULOSIN 0.4 MG CAP PO SCH ×2 (09:18→20:19)
[2022-11-10] MEDS ORDERED: LOSARTAN 25 MG TAB PO ONE (09:20)
[2022-11-10] MEDS: DICLOFENAC EPOLAMINE 1.3% PATCH TOP SCH ×2 (09:21→20:20)
[2022-11-10 10:51] LABS: MAGNESIUM LEVEL 2.2 MG/DL (1.8-2.4)
[2022-11-10 11:01] LABS: APPEARANCE, URINE HAZY (CLEAR); BACTERIA, URINE AUTO 1+ (NEGATIVE); BILIRUBIN, URINE AUTO NEGATIVE (NEGATIVE); BLOOD, URINE BLOOD 1+ (NEGATIVE); COLOR, URINE YELLOW (YELLOW); GLUCOSE, URINE (UA) AUTO NEGATIVE (NEGATIVE); KETONE, URINE AUTO NEGATIVE (NEGATIVE); LEUKOCYTE ESTERASE, URINE AUTO 1+ (NEGATIVE); MUCUS, URINE SMALL (NEGATIVE); NITRITE, URINE AUTO NEGATIVE (NEGATIVE); PROTEIN, URINE AUTO 2+ mg/dL (NEGATIVE); RBC, URINE AUTO 29 /HPF (0-3); SQUAMOUS EPITHELIAL CELL UR AU 1 /HPF (0-6); UROBILINOGEN, URINE AUTO 0.2 mg/dL (0.0-2.0); WBC, URINE AUTO 14 /HPF (0-3)
[2022-11-10 14:00] VITALS: BP 141/66; TEMP 97.6; O2SAT 99
[2022-11-10] MEDS: RIVAROXABAN 10MG TAB (XARELTO) PO SCH (17:20)
[2022-11-10 19:49] VITALS: BP 145/64; TEMP 98.1; O2SAT 99
[2022-11-10] MEDS: oxyCODONE 5MG TAB PO PRN (20:19)
[2022-11-10] MEDS: SENNA 8.6 MG TAB (SENOKOT) PO SCH (20:19)
[2022-11-10] MEDS: ROSUVASTATIN 10 MG TAB (CRESTOR) PO SCH (20:19)
[2022-11-10 21:30] VITALS: BP 132/62
[2022-11-11 06:00] VITALS: BP 129/58; TEMP 97.6; O2SAT 97
[2022-11-11] MEDS: ACETAMINOPHEN 500 MG TAB PO SCH ×3 (06:02→18:07)
[2022-11-11] MEDS: LEVOTHYROXINE 25MCG TABLET (0.025MG) PO SCH (06:02)
[2022-11-11] MEDS: LEVOTHYROXINE 150MCG TABLET (0.15MG) PO SCH (06:02)
[2022-11-11] MEDS: GABAPENTIN 100 MG CAP PO SCH ×3 (06:02→18:07)
[2022-11-11] MEDS: **hydrALAZINE HCL** 25 MG TAB PO SCH ×3 (06:03→21:34)
[2022-11-11] MEDS: oxyCODONE 5MG TAB PO SCH ×2 (06:03→12:06)
[2022-11-11] MEDS: bisoproloL fumarate 5 MG TAB PO SCH (07:14)
[2022-11-11] MEDS: TAMSULOSIN 0.4 MG CAP PO SCH ×2 (07:15→20:28)
[2022-11-11] MEDS: INSULIN LISPRO (NovoLOG) PER UNIT SC SCH ×4 (07:15→20:30)
[2022-11-11] MEDS: LEVEMIR (INSULIN DETEMIR) 1 UNITS/0.01ML SC SCH ×2 (07:15→20:29)
[2022-11-11] MEDS: PANTOPRAZOLE 40MG TAB (PROTONIX) PO SCH ×2 (07:15→20:28)
[2022-11-11] MEDS: DOCUSATE SODIUM 100MG CAPSULE PO SCH ×2 (07:15→20:28)
[2022-11-11] MEDS: LACTOBACILLUS ACIDOPHILUS CAP (BACID) PO SCH ×2 (07:16→17:08)
[2022-11-11] MEDS: amLODIPine 5 MG TAB PO SCH (07:16)
[2022-11-11] MEDS: MAGNESIUM OXIDE 400MG TAB (MAG-OX) PO SCH (07:16)
[2022-11-11] MEDS: FERROUS SULFATE 325MG TAB PO SCH ×2 (07:16→20:28)
[2022-11-11] MEDS: SIMETHICONE 80MG CHEW TAB PO SCH ×3 (07:16→20:28)
[2022-11-11] MEDS: DICLOFENAC EPOLAMINE 1.3% PATCH TOP SCH ×2 (07:17→20:29)
[2022-11-11] MEDS: MIRALAX *UNIT DOSE* 17GM PACKET PO SCH (07:17)
[2022-11-11] MEDS: REMEDY PHYTOPLEX Z-GUARD PASTE 113GM TUBE (FROM STOREROOM PRODUCT) TOP SCH ×3 (07:18→20:30)
[2022-11-11] MEDS: COMBIVENT RESPIMAT 100-20MCG INHALER 4GM INH SCH ×3 (07:20→19:38)
[2022-11-11] MEDS: DULoxetine 20MG CAP (CYMBALTA) PO SCH (08:46)
[2022-11-11] MEDS: FUROSEMIDE 20 MG TAB PO SCH (08:57)
[2022-11-11] MEDS: LINEZOLID 600MG TABLET (ZYVOX) PO SCH ×2 (12:42→20:28)
[2022-11-11 14:00] VITALS: BP 141/66; TEMP 97.9; O2SAT 98
[2022-11-11 14:35] LABS: CALCIUM LEVEL 8.7 MG/DL (8.3-10.6); CREATININE FOR GFR 1.63 MG/DL (0.55-1.30); POTASSIUM SERUM 5.4 MMOL/L (3.5-5.1)
[2022-11-11] MEDS: RIVAROXABAN 10MG TAB (XARELTO) PO SCH (17:08)
[2022-11-11 20:00] VITALS: BP 127/60; TEMP 97.9; O2SAT 97
[2022-11-11] MEDS: oxyCODONE 5MG TAB PO PRN (20:28)
[2022-11-11] MEDS: SENNA 8.6 MG TAB (SENOKOT) PO SCH (20:28)
[2022-11-11] MEDS: ROSUVASTATIN 10 MG TAB (CRESTOR) PO SCH (20:29)
[2022-11-11 21:38] VITALS: BP 121/58
[2022-11-11 22:40] LABS: HEMATOCRIT 26.5 % (36.0-47.0); HEMOGLOBIN 8.2 g/dl (12.0-15.5); MEAN CORPUSCULAR HEMOGLOBIN 25.9 pg (27.0-33.0); MEAN CORPUSCULAR HGB CONC 30.9 g/dl (32.0-36.5); MEAN CORPUSCULAR VOLUME 83.9 fl (80.0-96.0); PLATELET COUNT, AUTOMATED 320 10^3/uL (150-450); RED BLOOD COUNT 3.16 10^6/uL (4.00-5.40)
[2022-11-12] MEDS: LEVOTHYROXINE 150MCG TABLET (0.15MG) PO SCH (05:43)
[2022-11-12] MEDS: LEVOTHYROXINE 25MCG TABLET (0.025MG) PO SCH (05:43)
[2022-11-12] MEDS: **hydrALAZINE HCL** 25 MG TAB PO SCH ×3 (05:43→20:44)
[2022-11-12 06:00] VITALS: BP 125/60; TEMP 97.5; O2SAT 95
[2022-11-12] MEDS: oxyCODONE 5MG TAB PO SCH ×2 (06:28→12:44)
[2022-11-12 06:29] LABS: CREATININE FOR GFR 1.54 MG/DL (0.55-1.30); GLOMERULAR FILTRATION RATE 35.3 (>39); POTASSIUM SERUM 4.9 MMOL/L (3.5-5.1)
[2022-11-12] MEDS: GABAPENTIN 100 MG CAP PO SCH ×3 (06:29→18:07)
[2022-11-12] MEDS: ACETAMINOPHEN 500 MG TAB PO SCH ×3 (06:29→18:07)
[2022-11-12] MEDS: SIMETHICONE 80MG CHEW TAB PO SCH ×3 (07:36→20:42)
[2022-11-12] MEDS: DULoxetine 20MG CAP (CYMBALTA) PO SCH (07:37)
[2022-11-12] MEDS: FERROUS SULFATE 325MG TAB PO SCH ×2 (07:37→20:43)
[2022-11-12] MEDS: bisoproloL fumarate 5 MG TAB PO SCH (07:37)
[2022-11-12] MEDS: LACTOBACILLUS ACIDOPHILUS CAP (BACID) PO SCH ×2 (07:37→18:07)
[2022-11-12] MEDS: DOCUSATE SODIUM 100MG CAPSULE PO SCH ×2 (07:37→20:43)
[2022-11-12] MEDS: TAMSULOSIN 0.4 MG CAP PO SCH ×2 (07:37→20:42)
[2022-11-12] MEDS: MAGNESIUM OXIDE 400MG TAB (MAG-OX) PO SCH (07:37)
[2022-11-12] MEDS: LINEZOLID 600MG TABLET (ZYVOX) PO SCH ×2 (07:38→20:43)
[2022-11-12] MEDS: amLODIPine 5 MG TAB PO SCH (07:38)
[2022-11-12] MEDS: INSULIN LISPRO (NovoLOG) PER UNIT SC SCH ×4 (07:38→20:56)
[2022-11-12] MEDS: PANTOPRAZOLE 40MG TAB (PROTONIX) PO SCH ×2 (07:38→20:43)
[2022-11-12] MEDS: DICLOFENAC EPOLAMINE 1.3% PATCH TOP SCH ×2 (07:38→20:42)
[2022-11-12] MEDS: MIRALAX *UNIT DOSE* 17GM PACKET PO SCH (07:39)
[2022-11-12] MEDS: REMEDY PHYTOPLEX Z-GUARD PASTE 113GM TUBE (FROM STOREROOM PRODUCT) TOP SCH ×3 (07:39→20:44)
[2022-11-12] MEDS: LEVEMIR (INSULIN DETEMIR) 1 UNITS/0.01ML SC SCH ×2 (07:39→20:43)
[2022-11-12] MEDS: COMBIVENT RESPIMAT 100-20MCG INHALER 4GM INH SCH ×3 (07:44→19:30)
[2022-11-12] MEDS: oxyCODONE 5MG TAB PO PRN ×2 (10:05→20:44)
[2022-11-12 14:00] VITALS: BP 121/59; TEMP 97.4; O2SAT 99
[2022-11-12] MEDS: RIVAROXABAN 10MG TAB (XARELTO) PO SCH (18:07)
[2022-11-12 20:00] VITALS: BP 144/67; TEMP 96.9; O2SAT 99
[2022-11-12] MEDS: ROSUVASTATIN 10 MG TAB (CRESTOR) PO SCH (20:42)
[2022-11-12] MEDS: SENNA 8.6 MG TAB (SENOKOT) PO SCH (20:43)
[2022-11-13] MEDS: LEVOTHYROXINE 25MCG TABLET (0.025MG) PO SCH (05:42)
[2022-11-13] MEDS: LEVOTHYROXINE 150MCG TABLET (0.15MG) PO SCH (05:42)
[2022-11-13] MEDS: **hydrALAZINE HCL** 25 MG TAB PO SCH ×3 (05:44→20:13)
[2022-11-13 06:00] VITALS: BP 143/64; TEMP 97.7; O2SAT 98
[2022-11-13] MEDS: GABAPENTIN 100 MG CAP PO SCH ×3 (06:31→18:33)
[2022-11-13] MEDS: ACETAMINOPHEN 500 MG TAB PO SCH ×3 (06:31→18:33)
[2022-11-13] MEDS: oxyCODONE 5MG TAB PO SCH ×2 (06:32→12:36)
[2022-11-13] MEDS: COMBIVENT RESPIMAT 100-20MCG INHALER 4GM INH SCH ×3 (07:20→19:34)
[2022-11-13] MEDS: TAMSULOSIN 0.4 MG CAP PO SCH ×2 (08:39→20:13)
[2022-11-13] MEDS: DOCUSATE SODIUM 100MG CAPSULE PO SCH ×2 (08:39→20:14)
[2022-11-13] MEDS: PANTOPRAZOLE 40MG TAB (PROTONIX) PO SCH ×2 (08:39→20:14)
[2022-11-13] MEDS: FERROUS SULFATE 325MG TAB PO SCH ×2 (08:40→20:14)
[2022-11-13] MEDS: SIMETHICONE 80MG CHEW TAB PO SCH ×3 (08:40→20:13)
[2022-11-13] MEDS: MAGNESIUM OXIDE 400MG TAB (MAG-OX) PO SCH (08:40)
[2022-11-13] MEDS: INSULIN LISPRO (NovoLOG) PER UNIT SC SCH ×4 (08:41→21:00)
[2022-11-13] MEDS: DICLOFENAC EPOLAMINE 1.3% PATCH TOP SCH ×2 (08:41→20:12)
[2022-11-13] MEDS: MIRALAX *UNIT DOSE* 17GM PACKET PO SCH (08:41)
[2022-11-13] MEDS: LACTOBACILLUS ACIDOPHILUS CAP (BACID) PO SCH ×2 (08:41→18:33)
[2022-11-13] MEDS: bisoproloL fumarate 5 MG TAB PO SCH (08:42)
[2022-11-13] MEDS: amLODIPine 5 MG TAB PO SCH (08:42)
[2022-11-13] MEDS: LEVEMIR (INSULIN DETEMIR) 1 UNITS/0.01ML SC SCH ×2 (08:42→20:14)
[2022-11-13] MEDS: REMEDY PHYTOPLEX Z-GUARD PASTE 113GM TUBE (FROM STOREROOM PRODUCT) TOP SCH ×3 (08:42→20:15)
[2022-11-13 14:00] VITALS: BP 124/60; TEMP 97.3; O2SAT 98
[2022-11-13] MEDS: RIVAROXABAN 10MG TAB (XARELTO) PO SCH (18:33)
[2022-11-13 20:01] VITALS: BP 157/73; TEMP 97.9; O2SAT 96
[2022-11-13] MEDS: ROSUVASTATIN 10 MG TAB (CRESTOR) PO SCH (20:13)
[2022-11-13] MEDS: SENNA 8.6 MG TAB (SENOKOT) PO SCH (20:13)
[2022-11-13] MEDS: oxyCODONE 5MG TAB PO PRN (20:14)
[2022-11-14] MEDS: **hydrALAZINE HCL** 25 MG TAB PO SCH ×3 (05:24→21:25)
[2022-11-14] MEDS: LEVOTHYROXINE 150MCG TABLET (0.15MG) PO SCH (05:24)
[2022-11-14] MEDS: LEVOTHYROXINE 25MCG TABLET (0.025MG) PO SCH (05:24)
[2022-11-14 05:52] LABS: HEMATOCRIT 27.4 % (36.0-47.0); HEMOGLOBIN 8.4 g/dl (12.0-15.5); MEAN CORPUSCULAR HEMOGLOBIN 26.4 pg (27.0-33.0); MEAN CORPUSCULAR HGB CONC 30.7 g/dl (32.0-36.5); MEAN CORPUSCULAR VOLUME 86.2 fl (80.0-96.0); PLATELET COUNT, AUTOMATED 302 10^3/uL (150-450); RED BLOOD COUNT 3.18 10^6/uL (4.00-5.40); WHITE BLOOD COUNT 8.4 10^3/uL (4.0-10.0)
[2022-11-14 06:00] VITALS: BP 138/62; TEMP 98.3; O2SAT 96
[2022-11-14] MEDS: GABAPENTIN 100 MG CAP PO SCH ×3 (06:12→18:41)
[2022-11-14] MEDS: oxyCODONE 5MG TAB PO SCH ×2 (06:12→11:47)
[2022-11-14] MEDS: ACETAMINOPHEN 500 MG TAB PO SCH ×3 (06:12→18:41)
[2022-11-14 06:24] LABS: CALCIUM LEVEL 8.7 MG/DL (8.3-10.6); CREATININE FOR GFR 1.66 MG/DL (0.55-1.30); GLOMERULAR FILTRATION RATE 32.3 (>39); POTASSIUM SERUM 5.4 MMOL/L (3.5-5.1)
[2022-11-14] MEDS: COMBIVENT RESPIMAT 100-20MCG INHALER 4GM INH SCH ×3 (07:13→19:56)
[2022-11-14] MEDS: DOCUSATE SODIUM 100MG CAPSULE PO SCH ×2 (08:28→20:34)
[2022-11-14] MEDS: LACTOBACILLUS ACIDOPHILUS CAP (BACID) PO SCH ×2 (08:28→18:40)
[2022-11-14] MEDS: MAGNESIUM OXIDE 400MG TAB (MAG-OX) PO SCH (08:28)
[2022-11-14] MEDS: bisoproloL fumarate 5 MG TAB PO SCH (08:28)
[2022-11-14] MEDS: TAMSULOSIN 0.4 MG CAP PO SCH ×2 (08:28→20:34)
[2022-11-14] MEDS: FERROUS SULFATE 325MG TAB PO SCH ×2 (08:28→20:34)
[2022-11-14] MEDS: MIRALAX *UNIT DOSE* 17GM PACKET PO SCH (08:28)
[2022-11-14] MEDS: SIMETHICONE 80MG CHEW TAB PO SCH ×3 (08:28→20:34)
[2022-11-14] MEDS: LEVEMIR (INSULIN DETEMIR) 1 UNITS/0.01ML SC SCH ×2 (08:29→20:32)
[2022-11-14] MEDS: INSULIN LISPRO (NovoLOG) PER UNIT SC SCH ×4 (08:29→20:32)
[2022-11-14] MEDS: amLODIPine 5 MG TAB PO SCH (08:29)
[2022-11-14] MEDS: PANTOPRAZOLE 40MG TAB (PROTONIX) PO SCH ×2 (08:29→20:34)
[2022-11-14] MEDS: DICLOFENAC EPOLAMINE 1.3% PATCH TOP SCH (08:30)
[2022-11-14] MEDS: REMEDY PHYTOPLEX Z-GUARD PASTE 113GM TUBE (FROM STOREROOM PRODUCT) TOP SCH ×3 (08:30→20:33)
[2022-11-14] MEDS ORDERED: FUROSEMIDE 40 MG TAB PO ONE (08:55)
[2022-11-14] MEDS: DULoxetine 20MG CAP (CYMBALTA) PO SCH (11:47)
[2022-11-14] MEDS ORDERED: SOD POLYSTYRENE SULFONATE SUSP 15GM 60ML UD PO ONE (13:00)
[2022-11-14 14:00] VITALS: BP 136/63; TEMP 98; O2SAT 98
[2022-11-14] MEDS: RIVAROXABAN 10MG TAB (XARELTO) PO SCH (18:41)
[2022-11-14 20:00] VITALS: BP 118/55; TEMP 98.3; O2SAT 96
[2022-11-14] MEDS: SENNA 8.6 MG TAB (SENOKOT) PO SCH (20:33)
[2022-11-14] MEDS: ROSUVASTATIN 10 MG TAB (CRESTOR) PO SCH (20:35)
[2022-11-14 21:21] VITALS: BP 135/62
[2022-11-14] MEDS: oxyCODONE 5MG TAB PO PRN (21:27)
[2022-11-15 06:00] VITALS: BP 141/65; TEMP 97.9; O2SAT 93
[2022-11-15] MEDS: ACETAMINOPHEN 500 MG TAB PO SCH ×3 (06:12→18:23)
[2022-11-15] MEDS: GABAPENTIN 100 MG CAP PO SCH ×3 (06:12→18:22)
[2022-11-15] MEDS: LEVOTHYROXINE 150MCG TABLET (0.15MG) PO SCH (06:13)
[2022-11-15] MEDS: LEVOTHYROXINE 25MCG TABLET (0.025MG) PO SCH (06:13)
[2022-11-15] MEDS: **hydrALAZINE HCL** 25 MG TAB PO SCH ×3 (06:13→21:09)
[2022-11-15] MEDS: oxyCODONE 5MG TAB PO SCH ×2 (06:14→12:26)
[2022-11-15 06:26] LABS: CALCIUM LEVEL 8.4 MG/DL (8.3-10.6); CREATININE FOR GFR 1.64 MG/DL (0.55-1.30); GLOMERULAR FILTRATION RATE 32.8 (>39); POTASSIUM SERUM 5.1 MMOL/L (3.5-5.1)
[2022-11-15] MEDS: COMBIVENT RESPIMAT 100-20MCG INHALER 4GM INH SCH ×3 (07:11→20:13)
[2022-11-15] MEDS: LEVEMIR (INSULIN DETEMIR) 1 UNITS/0.01ML SC SCH ×2 (07:30→19:27)
[2022-11-15] MEDS: INSULIN LISPRO (NovoLOG) PER UNIT SC SCH ×4 (07:30→19:26)
[2022-11-15] MEDS: DOCUSATE SODIUM 100MG CAPSULE PO SCH ×2 (09:00→19:29)
[2022-11-15] MEDS: MIRALAX *UNIT DOSE* 17GM PACKET PO SCH (09:00)
[2022-11-15 09:40] VITALS: BP 138/63; TEMP 98.1; O2SAT 99
[2022-11-15] MEDS: DULoxetine 20MG CAP (CYMBALTA) PO SCH (09:40)
[2022-11-15] MEDS: FERROUS SULFATE 325MG TAB PO SCH ×2 (09:40→19:26)
[2022-11-15] MEDS: PANTOPRAZOLE 40MG TAB (PROTONIX) PO SCH ×2 (09:40→19:25)
[2022-11-15] MEDS: MAGNESIUM OXIDE 400MG TAB (MAG-OX) PO SCH (09:41)
[2022-11-15] MEDS: TAMSULOSIN 0.4 MG CAP PO SCH (09:41)
[2022-11-15] MEDS: SIMETHICONE 80MG CHEW TAB PO SCH ×3 (09:41→19:25)
[2022-11-15] MEDS: amLODIPine 5 MG TAB PO SCH (09:41)
[2022-11-15] MEDS: LACTOBACILLUS ACIDOPHILUS CAP (BACID) PO SCH ×2 (09:41→17:25)
[2022-11-15] MEDS: bisoproloL fumarate 5 MG TAB PO SCH (09:41)
[2022-11-15] MEDS: REMEDY PHYTOPLEX Z-GUARD PASTE 113GM TUBE (FROM STOREROOM PRODUCT) TOP SCH ×3 (09:42→19:27)
[2022-11-15 14:00] VITALS: BP 125/60; TEMP 97.7; O2SAT 98
[2022-11-15] MEDS: RIVAROXABAN 10MG TAB (XARELTO) PO SCH (17:25)
[2022-11-15] MEDS: ROSUVASTATIN 10 MG TAB (CRESTOR) PO SCH (19:25)
[2022-11-15] MEDS: oxyCODONE 5MG TAB PO PRN (19:26)
[2022-11-15] MEDS: SENNA 8.6 MG TAB (SENOKOT) PO SCH (19:29)
[2022-11-15 20:00] VITALS: BP 116/58; TEMP 97.9; O2SAT 95
[2022-11-16] MEDS: **hydrALAZINE HCL** 25 MG TAB PO SCH ×3 (05:54→21:54)
[2022-11-16] MEDS: LEVOTHYROXINE 25MCG TABLET (0.025MG) PO SCH (05:55)
[2022-11-16] MEDS: LEVOTHYROXINE 150MCG TABLET (0.15MG) PO SCH (05:55)
[2022-11-16] MEDS: GABAPENTIN 100 MG CAP PO SCH ×3 (05:55→18:09)
[2022-11-16] MEDS: ACETAMINOPHEN 500 MG TAB PO SCH ×3 (05:56→18:09)
[2022-11-16] MEDS: oxyCODONE 5MG TAB PO SCH ×2 (05:56→12:00)
[2022-11-16 06:00] VITALS: BP 134/62; TEMP 97.7; O2SAT 96
[2022-11-16] MEDS: LEVEMIR (INSULIN DETEMIR) 1 UNITS/0.01ML SC SCH ×2 (06:59→20:05)
[2022-11-16] MEDS: INSULIN LISPRO (NovoLOG) PER UNIT SC SCH ×4 (06:59→20:06)
[2022-11-16] MEDS: MAGNESIUM OXIDE 400MG TAB (MAG-OX) PO SCH (07:14)
[2022-11-16] MEDS: LACTOBACILLUS ACIDOPHILUS CAP (BACID) PO SCH ×2 (07:14→18:09)
[2022-11-16] MEDS: amLODIPine 5 MG TAB PO SCH (07:15)
[2022-11-16] MEDS: SIMETHICONE 80MG CHEW TAB PO SCH ×3 (07:15→20:05)
[2022-11-16] MEDS: FERROUS SULFATE 325MG TAB PO SCH ×2 (07:15→20:05)
[2022-11-16] MEDS: bisoproloL fumarate 5 MG TAB PO SCH (07:16)
[2022-11-16] MEDS: MIRALAX *UNIT DOSE* 17GM PACKET PO SCH (07:16)
[2022-11-16] MEDS: PANTOPRAZOLE 40MG TAB (PROTONIX) PO SCH ×2 (07:16→20:05)
[2022-11-16] MEDS: REMEDY PHYTOPLEX Z-GUARD PASTE 113GM TUBE (FROM STOREROOM PRODUCT) TOP SCH ×3 (07:16→20:06)
[2022-11-16] MEDS: DOCUSATE SODIUM 100MG CAPSULE PO SCH ×2 (07:16→20:05)
[2022-11-16] MEDS: DULoxetine 20MG CAP (CYMBALTA) PO SCH (07:16)
[2022-11-16] MEDS: COMBIVENT RESPIMAT 100-20MCG INHALER 4GM INH SCH ×3 (07:31→19:29)
[2022-11-16 14:00] VITALS: BP 134/69; TEMP 97.5; O2SAT 98
[2022-11-16] MEDS ORDERED: PILL CUTTER 1 EACH XX PRN (17:05)
[2022-11-16] MEDS: RIVAROXABAN 10MG TAB (XARELTO) PO SCH (18:08)
[2022-11-16 20:00] VITALS: BP 130/60; TEMP 97.6; O2SAT 96
[2022-11-16] MEDS: SENNA 8.6 MG TAB (SENOKOT) PO SCH (20:05)
[2022-11-16] MEDS: ROSUVASTATIN 10 MG TAB (CRESTOR) PO SCH (20:06)
[2022-11-16] MEDS: oxyCODONE 5MG TAB PO PRN (20:13)
[2022-11-17 06:00] VITALS: BP 151/69; TEMP 98.5; O2SAT 98
[2022-11-17] MEDS: **hydrALAZINE HCL** 25 MG TAB PO SCH ×3 (06:06→20:42)
[2022-11-17] MEDS: LEVOTHYROXINE 150MCG TABLET (0.15MG) PO SCH (06:06)
[2022-11-17] MEDS: LEVOTHYROXINE 25MCG TABLET (0.025MG) PO SCH (06:06)
[2022-11-17] MEDS: ACETAMINOPHEN 500 MG TAB PO SCH ×3 (06:41→18:33)
[2022-11-17] MEDS: GABAPENTIN 100 MG CAP PO SCH ×3 (06:41→18:34)
[2022-11-17] MEDS: oxyCODONE 5MG TAB PO SCH ×2 (06:41→12:22)
[2022-11-17 06:59] LABS: BASO % 0.5 % (0.0-1.0); EOS # 0.4 10^3/uL (0.0-0.5); EOS % 4.7 % (0.0-3.0); HEMATOCRIT 27.7 % (36.0-47.0); HEMOGLOBIN 8.5 g/dl (12.0-15.5); LYMPH # 1.1 10^3/uL (1.5-5.0); LYMPH % 14.7 % (24.0-44.0); MEAN CORPUSCULAR HEMOGLOBIN 26.4 pg (27.0-33.0); MEAN CORPUSCULAR HGB CONC 30.7 g/dl (32.0-36.5); MONO # 0.8 10^3/uL (0.0-0.8); MONO % 10.8 % (2.0-8.0); NEUTROPHILS # 5.1 10^3/uL (1.5-8.5); NEUTROPHILS % 68.9 % (36.0-66.0); PLATELET COUNT, AUTOMATED 260 10^3/uL (150-450); RED BLOOD COUNT 3.22 10^6/uL (4.00-5.40); WHITE BLOOD COUNT 7.4 10^3/uL (4.0-10.0)
[2022-11-17] MEDS: COMBIVENT RESPIMAT 100-20MCG INHALER 4GM INH SCH ×3 (07:12→19:36)
[2022-11-17] MEDS: INSULIN LISPRO (NovoLOG) PER UNIT SC SCH ×4 (07:30→20:44)
[2022-11-17 07:44] LABS: ALBUMIN 2.7 G/DL (3.2-5.2); CALCIUM LEVEL 8.3 MG/DL (8.3-10.6); CREATININE FOR GFR 1.46 MG/DL (0.55-1.30); GLOMERULAR FILTRATION RATE 37.5 (>39); PHOSPHORUS LEVEL 5.2 MG/DL (2.4-5.1); POTASSIUM SERUM 5.1 MMOL/L (3.5-5.1)
[2022-11-17] MEDS: LEVEMIR (INSULIN DETEMIR) 1 UNITS/0.01ML SC SCH ×2 (08:00→20:44)
[2022-11-17] MEDS: PANTOPRAZOLE 40MG TAB (PROTONIX) PO SCH ×2 (08:14→20:42)
[2022-11-17] MEDS: SIMETHICONE 80MG CHEW TAB PO SCH ×3 (08:14→20:42)
[2022-11-17] MEDS: FERROUS SULFATE 325MG TAB PO SCH ×2 (08:14→20:42)
[2022-11-17] MEDS: MAGNESIUM OXIDE 400MG TAB (MAG-OX) PO SCH (08:14)
[2022-11-17] MEDS: LACTOBACILLUS ACIDOPHILUS CAP (BACID) PO SCH ×2 (08:14→18:33)
[2022-11-17] MEDS: amLODIPine 5 MG TAB PO SCH (08:15)
[2022-11-17] MEDS: DOCUSATE SODIUM 100MG CAPSULE PO SCH ×2 (08:15→20:43)
[2022-11-17] MEDS: bisoproloL fumarate 5 MG TAB PO SCH (08:15)
[2022-11-17] MEDS: MIRALAX *UNIT DOSE* 17GM PACKET PO SCH (08:15)
[2022-11-17] MEDS: DULoxetine 20MG CAP (CYMBALTA) PO SCH (08:15)
[2022-11-17] MEDS: REMEDY PHYTOPLEX Z-GUARD PASTE 113GM TUBE (FROM STOREROOM PRODUCT) TOP SCH ×3 (08:16→20:44)
[2022-11-17 14:00] VITALS: BP 132/60; TEMP 97.5; O2SAT 98
[2022-11-17] MEDS: RIVAROXABAN 10MG TAB (XARELTO) PO SCH (18:33)
[2022-11-17 19:51] VITALS: BP 139/64; TEMP 98.5; O2SAT 97
[2022-11-17] MEDS: ROSUVASTATIN 10 MG TAB (CRESTOR) PO SCH (20:42)
[2022-11-17] MEDS: SENNA 8.6 MG TAB (SENOKOT) PO SCH (20:42)
[2022-11-17] MEDS: oxyCODONE 5MG TAB PO PRN (20:43)
[2022-11-18] MEDS: LEVOTHYROXINE 25MCG TABLET (0.025MG) PO SCH (05:49)
[2022-11-18] MEDS: LEVOTHYROXINE 150MCG TABLET (0.15MG) PO SCH (05:49)
[2022-11-18] MEDS: **hydrALAZINE HCL** 25 MG TAB PO SCH ×3 (05:50→21:20)
[2022-11-18 06:00] VITALS: BP 136/63; TEMP 97.9; O2SAT 96
[2022-11-18] MEDS: GABAPENTIN 100 MG CAP PO SCH ×3 (06:35→18:30)
[2022-11-18] MEDS: oxyCODONE 5MG TAB PO SCH ×2 (06:35→11:55)
[2022-11-18] MEDS: ACETAMINOPHEN 500 MG TAB PO SCH ×3 (06:36→18:30)
[2022-11-18] MEDS: COMBIVENT RESPIMAT 100-20MCG INHALER 4GM INH SCH ×3 (07:16→20:47)
[2022-11-18] MEDS: INSULIN LISPRO (NovoLOG) PER UNIT SC SCH ×4 (07:26→21:00)
[2022-11-18] MEDS: SIMETHICONE 80MG CHEW TAB PO SCH ×3 (07:40→20:37)
[2022-11-18] MEDS: DOCUSATE SODIUM 100MG CAPSULE PO SCH ×2 (07:41→20:38)
[2022-11-18] MEDS: bisoproloL fumarate 5 MG TAB PO SCH (07:41)
[2022-11-18] MEDS: FERROUS SULFATE 325MG TAB PO SCH ×2 (07:41→20:38)
[2022-11-18] MEDS: PANTOPRAZOLE 40MG TAB (PROTONIX) PO SCH ×2 (07:41→20:38)
[2022-11-18] MEDS: amLODIPine 5 MG TAB PO SCH (07:42)
[2022-11-18] MEDS: LEVEMIR (INSULIN DETEMIR) 1 UNITS/0.01ML SC SCH ×2 (07:42→20:39)
[2022-11-18] MEDS: LACTOBACILLUS ACIDOPHILUS CAP (BACID) PO SCH ×2 (07:42→18:30)
[2022-11-18] MEDS: MIRALAX *UNIT DOSE* 17GM PACKET PO SCH (07:42)
[2022-11-18] MEDS: MAGNESIUM OXIDE 400MG TAB (MAG-OX) PO SCH (07:42)
[2022-11-18] MEDS: DULoxetine 20MG CAP (CYMBALTA) PO SCH (07:42)
[2022-11-18] MEDS: REMEDY PHYTOPLEX Z-GUARD PASTE 113GM TUBE (FROM STOREROOM PRODUCT) TOP SCH ×3 (07:43→20:39)
[2022-11-18 14:00] VITALS: BP 170/77; TEMP 97.6; O2SAT 100
[2022-11-18] MEDS: ANALGESIC BALM CRM 3OZ TOP SCH ×2 (16:00→20:39)
[2022-11-18 20:10] VITALS: BP 135/60; TEMP 98.1; O2SAT 97
[2022-11-18] MEDS: ASPIRIN 81MG ENTERIC TABLET PO SCH (20:37)
[2022-11-18] MEDS: SENNA 8.6 MG TAB (SENOKOT) PO SCH (20:38)
[2022-11-18] MEDS: ROSUVASTATIN 10 MG TAB (CRESTOR) PO SCH (20:38)
[2022-11-18] MEDS: oxyCODONE 5MG TAB PO PRN (20:38)
[2022-11-19] MEDS: LEVOTHYROXINE 25MCG TABLET (0.025MG) PO SCH (05:44)
[2022-11-19] MEDS: LEVOTHYROXINE 150MCG TABLET (0.15MG) PO SCH (05:44)
[2022-11-19] MEDS: **hydrALAZINE HCL** 25 MG TAB PO SCH ×2 (05:45→14:00)
[2022-11-19 06:00] VITALS: BP 168/74; TEMP 97.7; O2SAT 97
[2022-11-19] MEDS: ACETAMINOPHEN 500 MG TAB PO SCH ×2 (06:23→12:15)
[2022-11-19] MEDS: GABAPENTIN 100 MG CAP PO SCH ×2 (06:24→12:14)
[2022-11-19] MEDS: oxyCODONE 5MG TAB PO SCH ×2 (06:24→12:14)
[2022-11-19] MEDS: COMBIVENT RESPIMAT 100-20MCG INHALER 4GM INH SCH (07:11)
[2022-11-19] MEDS: INSULIN LISPRO (NovoLOG) PER UNIT SC SCH ×2 (07:30→12:15)
[2022-11-19] MEDS: MAGNESIUM OXIDE 400MG TAB (MAG-OX) PO SCH (08:34)
[2022-11-19] MEDS: FERROUS SULFATE 325MG TAB PO SCH (08:34)
[2022-11-19] MEDS: ASPIRIN 81MG ENTERIC TABLET PO SCH (08:34)
[2022-11-19] MEDS: SIMETHICONE 80MG CHEW TAB PO SCH (08:34)
[2022-11-19] MEDS: PANTOPRAZOLE 40MG TAB (PROTONIX) PO SCH (08:34)
[2022-11-19] MEDS: LACTOBACILLUS ACIDOPHILUS CAP (BACID) PO SCH (08:34)
[2022-11-19] MEDS: DULoxetine 20MG CAP (CYMBALTA) PO SCH (08:34)
[2022-11-19] MEDS: amLODIPine 5 MG TAB PO SCH (08:34)
[2022-11-19] MEDS: ANALGESIC BALM CRM 3OZ TOP SCH (08:35)
[2022-11-19] MEDS: bisoproloL fumarate 5 MG TAB PO SCH (08:35)
[2022-11-19] MEDS: LEVEMIR (INSULIN DETEMIR) 1 UNITS/0.01ML SC SCH (08:35)
[2022-11-19] MEDS: DOCUSATE SODIUM 100MG CAPSULE PO SCH (08:36)
[2022-11-19] MEDS: MIRALAX *UNIT DOSE* 17GM PACKET PO SCH (08:36)
[2022-11-19] MEDS: REMEDY PHYTOPLEX Z-GUARD PASTE 113GM TUBE (FROM STOREROOM PRODUCT) TOP SCH (08:36)
[2022-11-19] MEDS ORDERED: MAALOX 30 ML SUSP *UDC PO ONE (10:45)
[2022-11-19] MEDS ORDERED: NITR4TASL SL (11:03)
[2022-11-19] MEDS ORDERED: HYDR25TA PO (11:03)
[2022-11-19] MEDS ORDERED: LEVO150T7 PO (11:03)
[2022-11-19] MEDS ORDERED: CYMB1CAP4 PO (11:03)
[2022-11-19] MEDS ORDERED: COMBAER6 INH (11:03)
[2022-11-19] MEDS ORDERED: INSUDET SC (11:03)
[2022-11-19] MEDS ORDERED: OXYC-517 PO (11:03)
[2022-11-19] MEDS ORDERED: FERR1TAB8 PO (11:03)
[2022-11-19] MEDS ORDERED: AMLO1TAB24 PO (11:03)
[2022-11-19] MEDS ORDERED: LEVO25TA5 PO (11:03)
[2022-11-19] MEDS ORDERED: CRES40TA PO (11:03)
[2022-11-19] MEDS ORDERED: BISO5TAB14 PO (11:03)
[2022-11-19] MEDS ORDERED: PANT-23 PO (11:03)
[2022-11-19] MEDS ORDERED: ASPI81TAEC PO (11:03)
[2022-11-19] MEDS ORDERED: GABA-1171 PO (11:03)
[2022-11-19 14:00] VITALS: BP 114/55; TEMP 98
== END 2022-11-19 15:15 | disposition home health service (06) | DRG 560 ==
LOC: M PM&R 19:10
PROVIDERS: ADMIT Physical Medicine & Rehabilitation; ATTEND Physical Medicine & Rehabilitation
PROC: 30233N1 Transfusion of Nonautologous Red Blood Cells into Peripheral Vein, Percutaneous Approach (ICD-10-PCS; principal; 2022-11-05)
DX: S72.142D Displaced intertrochanteric fracture of left femur, subsequent encounter for closed fracture with routine healing (principal); N39.0 Urinary tract infection, site not specified; I50.32 Chronic diastolic (congestive) heart failure; I13.0 Hypertensive heart and chronic kidney disease with heart failure and stage 1 through stage 4 chronic kidney disease, or unspecified chronic kidney disease; E87.3 Alkalosis; N17.9 Acute kidney failure, unspecified; J45.909 Unspecified asthma, uncomplicated; B95.2 Enterococcus as the cause of diseases classified elsewhere; N32.9 Bladder disorder, unspecified; E78.5 Hyperlipidemia, unspecified; E11.42 Type 2 diabetes mellitus with diabetic polyneuropathy; E03.9 Hypothyroidism, unspecified; D50.9 Iron deficiency anemia, unspecified; E88.09 Other disorders of plasma-protein metabolism, not elsewhere classified; K21.9 Gastro-esophageal reflux disease without esophagitis; K59.00 Constipation, unspecified; N18.30 Chronic kidney disease, stage 3 unspecified; I25.10 Atherosclerotic heart disease of native coronary artery without angina pectoris; E11.65 Type 2 diabetes mellitus with hyperglycemia; E11.22 Type 2 diabetes mellitus with diabetic chronic kidney disease; E83.42 Hypomagnesemia; E87.5 Hyperkalemia; Z74.09 Other reduced mobility; Z74.1 Need for assistance with personal care; Z98.41 Cataract extraction status, right eye; Z98.42 Cataract extraction status, left eye; Z90.49 Acquired absence of other specified parts of digestive tract; Z90.13 Acquired absence of bilateral breasts and nipples; Z79.4 Long term (current) use of insulin; Z79.890 Hormone replacement therapy; Z79.899 Other long term (current) drug therapy; Z88.0 Allergy status to penicillin

== ENCOUNTER 2022-11-24 14:15 | Inpatient (IN) | payer MEDICARE, OTHER ==
[~2022-11-24] VITALS: Ht 162.6 cm; Wt 78.9 kg
[~2022-11-24 14:15] MED LIST changes: +AMLO1TAB24 PO; +ASPI81TAEC PO; +BISO5TAB14 PO; +CIPR-250 PO; +COMBAER6 INH; +CYMB1CAP4 PO; +GABA-1171 PO; +HYDR25TA PO; +LEVO25TA5 PO; +MIRA1POW3 PO; +PERCOCET PO; +SENN-52 PO; +XARE10TA PO
[2022-11-24 18:07] LABS: BASO # 0.1 10^3/uL (0.0-0.2); BASO % 0.4 % (0.0-1.0); EOS # 0.4 10^3/uL (0.0-0.5); EOS % 3.5 % (0.0-3.0); HEMATOCRIT 30.9 % (36.0-47.0); HEMOGLOBIN 9.3 g/dl (12.0-15.5); LYMPH # 1.6 10^3/uL (1.5-5.0); LYMPH % 13.9 % (24.0-44.0); MEAN CORPUSCULAR HEMOGLOBIN 26.3 pg (27.0-33.0); MEAN CORPUSCULAR HGB CONC 30.1 g/dl (32.0-36.5); MEAN CORPUSCULAR VOLUME 87.3 fl (80.0-96.0); MONO # 0.9 10^3/uL (0.0-0.8); MONO % 8.4 % (2.0-8.0); NEUTROPHILS # 8.1 10^3/uL (1.5-8.5); NEUTROPHILS % 72.8 % (36.0-66.0); PLATELET COUNT, AUTOMATED 289 10^3/uL (150-450); RED BLOOD COUNT 3.54 10^6/uL (4.00-5.40); WHITE BLOOD COUNT 11.1 10^3/uL (4.0-10.0)
[2022-11-24 18:25] LABS: INR 1.31; LIPASE 28 U/L (12-53); PROTHROMBIN TIME 16.5 SECONDS (12.5-14.5)
[2022-11-24 18:26] LABS: PARTIAL THROMBOPLASTIN TIME 29.7 SECONDS (24.8-34.2)
[2022-11-24 18:27] LABS: ALKALINE PHOSPHATASE 283 U/L (46-116); ALT/SGPT 73 U/L (7.0-40); AST/SGOT 47 U/L (<34); BILIRUBIN,DIRECT 0.3 MG/DL (<0.4); BILIRUBIN,TOTAL 0.8 MG/DL (0.3-1.2); BLOOD UREA NITROGEN 25 MG/DL (9-23); CALCIUM LEVEL 8.4 MG/DL (8.3-10.6); CARBON DIOXIDE LEVEL 27 MMOL/L (20-31); CHLORIDE LEVEL 111 MMOL/L (98-107); CK-MB VALUE MASS < 1.0 NG/ML (<3.6); GLUCOSE, FASTING 59 MG/DL (74-106); POTASSIUM SERUM 4.3 MMOL/L (3.5-5.1); SODIUM LEVEL 145 MMOL/L (136-145); TOTAL PROTEIN 6.6 G/DL (5.7-8.2)
[2022-11-24 18:29] LABS: CPK CREATINE PHOSPHOKINASE 23 U/L (34-145); MB/CK RELATIVE INDEX 4.34 (< OR =4)
[2022-11-24 18:53] LABS: RSV AMPLIFICATION NEGATIVE (NEGATIVE)
[2022-11-24] MEDS ORDERED: ISOVUE-370 76% 100ML VIAL As Ordered ONE (18:59)
[2022-11-24] MEDS: ROSUVASTATIN 10 MG TAB (CRESTOR) PO SCH (21:00)
[2022-11-24] MEDS: LEVEMIR (INSULIN DETEMIR) 1 UNITS/0.01ML SC SCH (21:00)
[2022-11-24] MEDS ORDERED: cefTRIAXone SOD 1 GM in D5W MINI-BAG PLUS 50 ML IV ONE (21:30)
[2022-11-24] MEDS ORDERED: DEXTROSE 50% 50ML SYRINGE IV PRN (22:00)
[2022-11-24] MEDS ORDERED: GLUCAGON INJ 1MG VIAL SC PRN (22:00)
[2022-11-24] MEDS ORDERED: GLUCOSE 4GM CHEW TABLET PO PRN (22:00)
[2022-11-24] MEDS ORDERED: KETOROLAC 30 MG/ML 1ML VIAL IV ONE (22:00)
[2022-11-24] MEDS ORDERED: MED REC IN PROGRESS XX SCH (22:10)
[2022-11-24] MEDS ORDERED: NITR4TASL SL (22:53)
[2022-11-24] MEDS ORDERED: ROSU40TA4 PO (22:53)
[2022-11-24] MEDS ORDERED: AMLO1TAB24 PO (22:53)
[2022-11-24] MEDS ORDERED: HYDR-3910 PO (22:53)
[2022-11-24] MEDS ORDERED: COMBAER6 INH (22:53)
[2022-11-24] MEDS ORDERED: INSUDET SC (22:53)
[2022-11-24] MEDS ORDERED: CYMB1CAP4 PO (22:53)
[2022-11-24] MEDS ORDERED: PANT-23 PO (22:53)
[2022-11-24] MEDS ORDERED: SYNT25TA PO (22:53)
[2022-11-24] MEDS ORDERED: ASPI-161 PO (22:53)
[2022-11-24] MEDS ORDERED: FERR1TAB8 PO (22:53)
[2022-11-24] MEDS ORDERED: SYNT150T PO (22:53)
[2022-11-24] MEDS ORDERED: OXYC-517 PO (22:53)
[2022-11-24] MEDS ORDERED: BISO5TAB14 PO (22:53)
[2022-11-24] MEDS ORDERED: GABA-1171 PO (22:53)
[2022-11-24] MEDS ORDERED: HOME MED LIST COMPLETE! XX SCH (23:00)
[2022-11-24] MEDS ORDERED: NITROGLYCERIN 0.4MG SUBL TABLET SL PRN (23:20)
[2022-11-24] MEDS ORDERED: PILL CUTTER 1 EACH XX PRN (23:40)
[2022-11-24] MEDS: PANTOPRAZOLE 40MG TAB (PROTONIX) PO SCH (23:58)
[2022-11-24] MEDS: **hydrALAZINE HCL** 25 MG TAB PO SCH (23:59)
[2022-11-25] MEDS: COMBIVENT RESPIMAT 100-20MCG INHALER 4GM INH SCH ×4 (00:21→18:57)
[2022-11-25 05:49] LABS: HEMATOCRIT 29.5 % (36.0-47.0); HEMOGLOBIN 8.8 g/dl (12.0-15.5); MEAN CORPUSCULAR HEMOGLOBIN 26.2 pg (27.0-33.0); MEAN CORPUSCULAR HGB CONC 29.8 g/dl (32.0-36.5); MEAN CORPUSCULAR VOLUME 87.8 fl (80.0-96.0); PLATELET COUNT, AUTOMATED 268 10^3/uL (150-450); RED BLOOD COUNT 3.36 10^6/uL (4.00-5.40); WHITE BLOOD COUNT 10.7 10^3/uL (4.0-10.0)
[2022-11-25] MEDS: LEVOTHYROXINE 25MCG TABLET (0.025MG) PO SCH (06:23)
[2022-11-25] MEDS: LEVOTHYROXINE 150MCG TABLET (0.15MG) PO SCH (06:24)
[2022-11-25 06:28] LABS: ALBUMIN 2.7 G/DL (3.2-5.2); ALKALINE PHOSPHATASE 247 U/L (46-116); ALT/SGPT 57 U/L (7.0-40); AST/SGOT 41 U/L (<34); BILIRUBIN,TOTAL 0.7 MG/DL (0.3-1.2); BLOOD UREA NITROGEN 22 MG/DL (9-23); CALCIUM LEVEL 8.1 MG/DL (8.3-10.6); CARBON DIOXIDE LEVEL 26 MMOL/L (20-31); CHLORIDE LEVEL 110 MMOL/L (98-107); CREATININE FOR GFR 1.05 MG/DL (0.55-1.30); GLOMERULAR FILTRATION RATE 54.8 (>39); GLUCOSE, FASTING 59 MG/DL (74-106); MAGNESIUM LEVEL 1.8 MG/DL (1.8-2.4); POTASSIUM SERUM 4.2 MMOL/L (3.5-5.1); SODIUM LEVEL 144 MMOL/L (136-145)
[2022-11-25] MEDS: INSULIN LISPRO (NovoLOG) PER UNIT SC SCH ×4 (07:30→21:00)
[2022-11-25] MEDS ORDERED: FOSFOMYCIN TROMETHAMINE 3 GM POWDER PACKET (MONUROL) PO ONE (09:00)
[2022-11-25 09:46] LABS: HEPATITIS B SURFACE ANTIGEN NEGATIVE (NEGATIVE)
[2022-11-25 10:06] LABS: HEPATITIS B CORE ANTIBODY IGM NEGATIVE (NEGATIVE)
[2022-11-25] MEDS: ENOXAPARIN 40MG/0.4ML SYRINGE (J1650 PER 10MG) SC SCH (10:06)
[2022-11-25 10:07] LABS: HEPATITIS C VIRUS ABY INDEX 0.1 INDEX (<0.8)
[2022-11-25] MEDS: LEVEMIR (INSULIN DETEMIR) 1 UNITS/0.01ML SC SCH ×2 (10:07→21:00)
[2022-11-25] MEDS: FERROUS SULFATE 325MG TAB PO SCH ×2 (10:07→20:12)
[2022-11-25] MEDS: bisoproloL fumarate 5 MG TAB PO SCH (10:10)
[2022-11-25] MEDS: FUROSEMIDE 20 MG TAB PO SCH (10:11)
[2022-11-25] MEDS: **hydrALAZINE HCL** 25 MG TAB PO SCH ×3 (10:11→20:22)
[2022-11-25] MEDS: DULoxetine 20MG CAP (CYMBALTA) PO SCH (10:11)
[2022-11-25] MEDS: amLODIPine 5 MG TAB PO SCH (10:11)
[2022-11-25] MEDS: ASPIRIN 81MG ENTERIC TABLET PO SCH ×2 (10:11→20:12)
[2022-11-25] MEDS: GABAPENTIN 100 MG CAP PO SCH ×3 (10:11→20:12)
[2022-11-25] MEDS: PANTOPRAZOLE 40MG TAB (PROTONIX) PO SCH ×2 (10:11→20:12)
[2022-11-25 10:41] VITALS: BP 172/78; TEMP 97.5; O2SAT 97
[2022-11-25 13:27] VITALS: BP 154/65; TEMP 97; O2SAT 96
[2022-11-25 13:35] VITALS: BP 156/75; TEMP 97.9; O2SAT 99
[2022-11-25 15:34] LABS: HEMATOCRIT 33.5 % (36.0-47.0); HEMOGLOBIN 10.2 g/dl (12.0-15.5)
[2022-11-25 16:37] LABS: PERCENT SATURATION 18.4 % (13.2-45.0)
[2022-11-25 16:41] LABS: FERRITIN 384.5 NG/ML (7.3-270.7); FOLATE 10.69 NG/ML (>5.4)
[2022-11-25] MEDS: ROSUVASTATIN 10 MG TAB (CRESTOR) PO SCH (20:12)
[2022-11-25 21:00] VITALS: BP 130/60; TEMP 98.2; O2SAT 98
[2022-11-25] MEDS ORDERED: cefTRIAXone SOD 1 GM in D5W MINI-BAG PLUS 50 ML IV SCH (23:00)
[2022-11-26 05:06] VITALS: BP 138/60; TEMP 98.8; O2SAT 95
[2022-11-26] MEDS: LEVOTHYROXINE 150MCG TABLET (0.15MG) PO SCH (05:17)
[2022-11-26] MEDS: ACETAMINOPHEN TAB 650MG DOSE (2X325MG) PO PRN ×2 (05:17→11:50)
[2022-11-26] MEDS: LEVOTHYROXINE 25MCG TABLET (0.025MG) PO SCH (05:17)
[2022-11-26 05:56] LABS: BASO # 0.1 10^3/uL (0.0-0.2); BASO % 0.5 % (0.0-1.0); EOS # 0.5 10^3/uL (0.0-0.5); EOS % 4.8 % (0.0-3.0); HEMATOCRIT 28.2 % (36.0-47.0); HEMOGLOBIN 8.5 g/dl (12.0-15.5); LYMPH # 1.5 10^3/uL (1.5-5.0); LYMPH % 15.2 % (24.0-44.0); MEAN CORPUSCULAR HEMOGLOBIN 26.2 pg (27.0-33.0); MEAN CORPUSCULAR HGB CONC 30.1 g/dl (32.0-36.5); MONO # 0.8 10^3/uL (0.0-0.8); MONO % 7.7 % (2.0-8.0); NEUTROPHILS # 6.9 10^3/uL (1.5-8.5); NEUTROPHILS % 71.1 % (36.0-66.0); PLATELET COUNT, AUTOMATED 267 10^3/uL (150-450); RED BLOOD COUNT 3.24 10^6/uL (4.00-5.40); WHITE BLOOD COUNT 9.7 10^3/uL (4.0-10.0)
[2022-11-26 06:25] LABS: ALBUMIN 2.7 G/DL (3.2-5.2); BILIRUBIN,TOTAL 0.8 MG/DL (0.3-1.2); CALCIUM LEVEL 7.9 MG/DL (8.3-10.6); CREATININE FOR GFR 1.1 MG/DL (0.55-1.30); MAGNESIUM LEVEL 1.8 MG/DL (1.8-2.4); PHOSPHORUS LEVEL 4.8 MG/DL (2.4-5.1); POTASSIUM SERUM 4.5 MMOL/L (3.5-5.1); TOTAL PROTEIN 5.8 G/DL (5.7-8.2)
[2022-11-26] MEDS: INSULIN LISPRO (NovoLOG) PER UNIT SC SCH ×4 (07:30→21:00)
[2022-11-26] MEDS: COMBIVENT RESPIMAT 100-20MCG INHALER 4GM INH SCH ×3 (07:53→19:18)
[2022-11-26] MEDS: GABAPENTIN 100 MG CAP PO SCH ×3 (08:09→21:01)
[2022-11-26] MEDS: FERROUS SULFATE 325MG TAB PO SCH ×2 (08:09→21:00)
[2022-11-26] MEDS: PANTOPRAZOLE 40MG TAB (PROTONIX) PO SCH ×2 (08:09→21:00)
[2022-11-26] MEDS: ASPIRIN 81MG ENTERIC TABLET PO SCH ×2 (08:09→20:59)
[2022-11-26] MEDS: ENOXAPARIN 40MG/0.4ML SYRINGE (J1650 PER 10MG) SC SCH (08:10)
[2022-11-26] MEDS: amLODIPine 5 MG TAB PO SCH (08:16)
[2022-11-26] MEDS: FUROSEMIDE 20 MG TAB PO SCH (08:16)
[2022-11-26] MEDS: **hydrALAZINE HCL** 25 MG TAB PO SCH ×3 (08:16→21:00)
[2022-11-26] MEDS: bisoproloL fumarate 5 MG TAB PO SCH (08:17)
[2022-11-26] MEDS: LEVEMIR (INSULIN DETEMIR) 1 UNITS/0.01ML SC SCH ×2 (08:22→21:02)
[2022-11-26] MEDS: DULoxetine 20MG CAP (CYMBALTA) PO SCH (11:06)
[2022-11-26] MEDS ORDERED: MAGNESIUM OXIDE 400MG TAB (MAG-OX) PO ONE (11:55)
[2022-11-26] MEDS: CEFDINIR 300 MG CAP (OMNICEF) PO SCH ×2 (13:19→21:01)
[2022-11-26 14:00] VITALS: BP 150/67; TEMP 98.2; O2SAT 97
[2022-11-26] MEDS: oxyCODONE 5MG TAB PO PRN ×2 (15:24→22:37)
[2022-11-26 20:56] VITALS: BP 149/67; TEMP 98.6; O2SAT 97
[2022-11-26] MEDS: ROSUVASTATIN 10 MG TAB (CRESTOR) PO SCH (20:59)
[2022-11-27] MEDS: LEVOTHYROXINE 25MCG TABLET (0.025MG) PO SCH (05:37)
[2022-11-27] MEDS: LEVOTHYROXINE 150MCG TABLET (0.15MG) PO SCH (05:37)
[2022-11-27 05:54] VITALS: BP 141/69; TEMP 98.1; O2SAT 97
[2022-11-27 06:06] VITALS: BP 110/65; TEMP 97.2; O2SAT 98
[2022-11-27 06:29] LABS: HEMATOCRIT 26.1 % (36.0-47.0); MEAN CORPUSCULAR HEMOGLOBIN 26.5 pg (27.0-33.0); MEAN CORPUSCULAR HGB CONC 30.7 g/dl (32.0-36.5); MEAN CORPUSCULAR VOLUME 86.4 fl (80.0-96.0); PLATELET COUNT, AUTOMATED 246 10^3/uL (150-450); RED BLOOD COUNT 3.02 10^6/uL (4.00-5.40); WHITE BLOOD COUNT 8.3 10^3/uL (4.0-10.0)
[2022-11-27] MEDS: COMBIVENT RESPIMAT 100-20MCG INHALER 4GM INH SCH ×3 (07:39→20:18)
[2022-11-27] MEDS: **hydrALAZINE HCL** 25 MG TAB PO SCH (08:30)
[2022-11-27] MEDS: amLODIPine 5 MG TAB PO SCH (08:31)
[2022-11-27] MEDS: FUROSEMIDE 20 MG TAB PO SCH (08:38)
[2022-11-27] MEDS: INSULIN LISPRO (NovoLOG) PER UNIT SC SCH ×4 (08:38→20:57)
[2022-11-27] MEDS: FERROUS SULFATE 325MG TAB PO SCH ×2 (08:38→20:49)
[2022-11-27] MEDS: CEFDINIR 300 MG CAP (OMNICEF) PO SCH ×2 (08:39→20:50)
[2022-11-27] MEDS: oxyCODONE 5MG TAB PO PRN (08:39)
[2022-11-27] MEDS: ENOXAPARIN 40MG/0.4ML SYRINGE (J1650 PER 10MG) SC SCH (08:40)
[2022-11-27] MEDS: ASPIRIN 81MG ENTERIC TABLET PO SCH ×2 (08:40→20:49)
[2022-11-27] MEDS: bisoproloL fumarate 5 MG TAB PO SCH (08:40)
[2022-11-27] MEDS: GABAPENTIN 100 MG CAP PO SCH ×3 (08:40→20:49)
[2022-11-27] MEDS: PANTOPRAZOLE 40MG TAB (PROTONIX) PO SCH ×2 (08:40→20:49)
[2022-11-27] MEDS: DULoxetine 20MG CAP (CYMBALTA) PO SCH (08:42)
[2022-11-27] MEDS: LOSARTAN 25 MG TAB PO SCH (12:26)
[2022-11-27 14:00] VITALS: BP 109/47; TEMP 97.9; O2SAT 93
[2022-11-27] MEDS: LACTOBACILLUS ACIDOPHILUS CAP (BACID) PO SCH ×3 (14:08→20:49)
[2022-11-27] MEDS: LINEZOLID 600MG TABLET (ZYVOX) PO SCH ×2 (14:08→20:56)
[2022-11-27] MEDS: ROSUVASTATIN 10 MG TAB (CRESTOR) PO SCH (20:49)
[2022-11-27] MEDS: ACETAMINOPHEN TAB 650MG DOSE (2X325MG) PO PRN (20:56)
[2022-11-27] MEDS: LEVEMIR (INSULIN DETEMIR) 1 UNITS/0.01ML SC SCH (20:58)
[2022-11-27 21:28] VITALS: BP 146/69; TEMP 98.4; O2SAT 99
[2022-11-28] MEDS: LEVOTHYROXINE 150MCG TABLET (0.15MG) PO SCH (05:09)
[2022-11-28] MEDS: LEVOTHYROXINE 25MCG TABLET (0.025MG) PO SCH (05:09)
[2022-11-28] MEDS: oxyCODONE 5MG TAB PO PRN ×4 (05:09→20:25)
[2022-11-28 05:48] LABS: HEMATOCRIT 28.1 % (36.0-47.0); HEMOGLOBIN 8.5 g/dl (12.0-15.5); MEAN CORPUSCULAR HEMOGLOBIN 26.5 pg (27.0-33.0); MEAN CORPUSCULAR HGB CONC 30.2 g/dl (32.0-36.5); MEAN CORPUSCULAR VOLUME 87.5 fl (80.0-96.0); PLATELET COUNT, AUTOMATED 236 10^3/uL (150-450); RED BLOOD COUNT 3.21 10^6/uL (4.00-5.40); WHITE BLOOD COUNT 8.9 10^3/uL (4.0-10.0)
[2022-11-28 06:00] VITALS: BP 146/69; TEMP 97.3; O2SAT 94
[2022-11-28 06:13] LABS: CALCIUM LEVEL 8.5 MG/DL (8.3-10.6); CREATININE FOR GFR 1.01 MG/DL (0.55-1.30); GLOMERULAR FILTRATION RATE 57.4 (>39); MAGNESIUM LEVEL 1.5 MG/DL (1.8-2.4); PHOSPHORUS LEVEL 4.2 MG/DL (2.4-5.1); POTASSIUM SERUM 3.6 MMOL/L (3.5-5.1)
[2022-11-28] MEDS: COMBIVENT RESPIMAT 100-20MCG INHALER 4GM INH SCH ×3 (07:19→19:45)
[2022-11-28] MEDS: INSULIN LISPRO (NovoLOG) PER UNIT SC SCH ×4 (08:44→20:30)
[2022-11-28] MEDS: MAG SULF 1GM/100ML (MAG RUN) 1 GM in IV 1 EA IV SCH ×2 (08:44→10:02)
[2022-11-28] MEDS: ENOXAPARIN 40MG/0.4ML SYRINGE (J1650 PER 10MG) SC SCH (08:45)
[2022-11-28] MEDS: FUROSEMIDE 20 MG TAB PO SCH (08:45)
[2022-11-28] MEDS: FERROUS SULFATE 325MG TAB PO SCH ×2 (08:45→20:29)
[2022-11-28] MEDS: GABAPENTIN 100 MG CAP PO SCH ×3 (08:46→20:29)
[2022-11-28] MEDS: LOSARTAN 25 MG TAB PO SCH (08:46)
[2022-11-28] MEDS: DULoxetine 20MG CAP (CYMBALTA) PO SCH (08:46)
[2022-11-28] MEDS: CEFDINIR 300 MG CAP (OMNICEF) PO SCH ×2 (08:46→20:29)
[2022-11-28] MEDS: LINEZOLID 600MG TABLET (ZYVOX) PO SCH ×2 (08:46→20:29)
[2022-11-28] MEDS: LACTOBACILLUS ACIDOPHILUS CAP (BACID) PO SCH ×4 (08:46→20:29)
[2022-11-28] MEDS: bisoproloL fumarate 5 MG TAB PO SCH (08:47)
[2022-11-28] MEDS: ASPIRIN 81MG ENTERIC TABLET PO SCH ×2 (08:47→20:26)
[2022-11-28] MEDS: PANTOPRAZOLE 40MG TAB (PROTONIX) PO SCH ×2 (08:47→20:26)
[2022-11-28 14:00] VITALS: BP 128/57; TEMP 97.9; O2SAT 96
[2022-11-28] MEDS: ROSUVASTATIN 10 MG TAB (CRESTOR) PO SCH (20:25)
[2022-11-28] MEDS: LEVEMIR (INSULIN DETEMIR) 1 UNITS/0.01ML SC SCH (20:30)
[2022-11-28 21:27] VITALS: BP 133/57; TEMP 98.8; O2SAT 98
[2022-11-29] VITALS (9 sets, daily range): BP systolic 133–153; BP diastolic 57–73; TEMP 97.2–97.9; O2SAT 70–99
[2022-11-29] MEDS: oxyCODONE 5MG TAB PO PRN (05:28)
[2022-11-29] MEDS: LEVOTHYROXINE 150MCG TABLET (0.15MG) PO SCH (05:28)
[2022-11-29] MEDS: LEVOTHYROXINE 25MCG TABLET (0.025MG) PO SCH (05:28)
[2022-11-29 06:07] LABS: HEMOGLOBIN 7.7 g/dl (12.0-15.5); MEAN CORPUSCULAR HGB CONC 30.8 g/dl (32.0-36.5); MEAN CORPUSCULAR VOLUME 87.7 fl (80.0-96.0); PLATELET COUNT, AUTOMATED 218 10^3/uL (150-450); RED BLOOD COUNT 2.85 10^6/uL (4.00-5.40); WHITE BLOOD COUNT 8.6 10^3/uL (4.0-10.0)
[2022-11-29 06:34] LABS: CALCIUM LEVEL 7.8 MG/DL (8.3-10.6); CREATININE FOR GFR 1.18 MG/DL (0.55-1.30); GLOMERULAR FILTRATION RATE 47.9 (>39); MAGNESIUM LEVEL 2.1 MG/DL (1.8-2.4); POTASSIUM SERUM 3.9 MMOL/L (3.5-5.1)
[2022-11-29] MEDS: COMBIVENT RESPIMAT 100-20MCG INHALER 4GM INH SCH ×3 (07:35→20:05)
[2022-11-29] MEDS: INSULIN LISPRO (NovoLOG) PER UNIT SC SCH ×4 (08:07→20:49)
[2022-11-29] MEDS: ENOXAPARIN 40MG/0.4ML SYRINGE (J1650 PER 10MG) SC SCH (08:09)
[2022-11-29] MEDS: LINEZOLID 600MG TABLET (ZYVOX) PO SCH ×2 (08:09→21:09)
[2022-11-29] MEDS: LACTOBACILLUS ACIDOPHILUS CAP (BACID) PO SCH ×4 (08:09→21:08)
[2022-11-29] MEDS: CEFDINIR 300 MG CAP (OMNICEF) PO SCH ×2 (08:10→21:08)
[2022-11-29] MEDS: bisoproloL fumarate 5 MG TAB PO SCH (08:10)
[2022-11-29] MEDS: ASPIRIN 81MG ENTERIC TABLET PO SCH ×2 (08:10→21:08)
[2022-11-29] MEDS: GABAPENTIN 100 MG CAP PO SCH ×3 (08:11→21:08)
[2022-11-29] MEDS: FUROSEMIDE 20 MG TAB PO SCH (08:11)
[2022-11-29] MEDS: PANTOPRAZOLE 40MG TAB (PROTONIX) PO SCH ×2 (08:11→21:09)
[2022-11-29] MEDS: LOSARTAN 25 MG TAB PO SCH (08:12)
[2022-11-29] MEDS: FERROUS SULFATE 325MG TAB PO SCH ×2 (08:12→21:09)
[2022-11-29] MEDS: DULoxetine 20MG CAP (CYMBALTA) PO SCH (09:57)
[2022-11-29] MEDS ORDERED: GOLYTELY SOLN 4000 ML BTL PO ONE (15:00)
[2022-11-29] MEDS: CYANOCOBALAMIN 500 MCG TAB PO SCH (15:24)
[2022-11-29] MEDS: LEVEMIR (INSULIN DETEMIR) 1 UNITS/0.01ML SC SCH (21:09)
[2022-11-29] MEDS: ROSUVASTATIN 10 MG TAB (CRESTOR) PO SCH (21:09)
[2022-11-30] VITALS (8 sets, daily range): BP systolic 136–157; BP diastolic 60–72; TEMP 97.7–98.4; O2SAT 92–98
[2022-11-30] MEDS: LEVOTHYROXINE 150MCG TABLET (0.15MG) PO SCH (05:32)
[2022-11-30] MEDS: LEVOTHYROXINE 25MCG TABLET (0.025MG) PO SCH (05:32)
[2022-11-30 06:06] LABS: HEMATOCRIT 27.7 % (36.0-47.0); HEMOGLOBIN 8.9 g/dl (12.0-15.5); MEAN CORPUSCULAR HEMOGLOBIN 27.4 pg (27.0-33.0); MEAN CORPUSCULAR HGB CONC 32.1 g/dl (32.0-36.5); MEAN CORPUSCULAR VOLUME 85.2 fl (80.0-96.0); PLATELET COUNT, AUTOMATED 211 10^3/uL (150-450); RED BLOOD COUNT 3.25 10^6/uL (4.00-5.40); WHITE BLOOD COUNT 7.6 10^3/uL (4.0-10.0)
[2022-11-30 06:42] LABS: ALBUMIN 2.5 G/DL (3.2-5.2); BILIRUBIN,TOTAL 0.7 MG/DL (0.3-1.2); CALCIUM LEVEL 7.7 MG/DL (8.3-10.6); CREATININE FOR GFR 1.02 MG/DL (0.55-1.30); GLOMERULAR FILTRATION RATE 56.7 (>39); MAGNESIUM LEVEL 1.8 MG/DL (1.8-2.4); PHOSPHORUS LEVEL 3.9 MG/DL (2.4-5.1); POTASSIUM SERUM 3.9 MMOL/L (3.5-5.1); TOTAL PROTEIN 5.4 G/DL (5.7-8.2)
[2022-11-30] MEDS: COMBIVENT RESPIMAT 100-20MCG INHALER 4GM INH SCH ×3 (07:12→20:48)
[2022-11-30] MEDS: INSULIN LISPRO (NovoLOG) PER UNIT SC SCH ×4 (07:30→21:00)
[2022-11-30] MEDS: ASPIRIN 81MG ENTERIC TABLET PO SCH (07:53)
[2022-11-30] MEDS: FERROUS SULFATE 325MG TAB PO SCH ×2 (07:53→20:20)
[2022-11-30] MEDS: CEFDINIR 300 MG CAP (OMNICEF) PO SCH ×2 (07:53→20:20)
[2022-11-30] MEDS: LACTOBACILLUS ACIDOPHILUS CAP (BACID) PO SCH ×4 (07:53→20:20)
[2022-11-30] MEDS: GABAPENTIN 100 MG CAP PO SCH ×3 (07:53→20:20)
[2022-11-30] MEDS: PANTOPRAZOLE 40MG TAB (PROTONIX) PO SCH ×2 (07:54→20:20)
[2022-11-30] MEDS: LINEZOLID 600MG TABLET (ZYVOX) PO SCH ×2 (09:00→20:20)
[2022-11-30] MEDS ORDERED: propofoL 200 MG/20 ML VIAL As Ordered ONE (13:56)
[2022-11-30] MEDS ORDERED: fentaNYL 100 MCG/2 ML INJECTION As Ordered ONE (14:24)
[2022-11-30] MEDS ORDERED: hydrALAZINE 20MG/ML 1ML VIAL As Ordered ONE (14:32)
[2022-11-30] MEDS: CYANOCOBALAMIN 500 MCG TAB PO SCH (16:45)
[2022-11-30] MEDS: DULoxetine 20MG CAP (CYMBALTA) PO SCH (16:45)
[2022-11-30] MEDS: bisoproloL fumarate 5 MG TAB PO SCH (16:46)
[2022-11-30] MEDS: LOSARTAN 25 MG TAB PO SCH (16:47)
[2022-11-30] MEDS: ROSUVASTATIN 10 MG TAB (CRESTOR) PO SCH (20:20)
[2022-11-30] MEDS: LEVEMIR (INSULIN DETEMIR) 1 UNITS/0.01ML SC SCH (20:21)
[2022-12-01 02:00] VITALS: BP_SYST 135; BP_SYST 146; BP_DIAS 62; BP_DIAS 91; TEMP 98.1; O2SAT 92
[2022-12-01] MEDS: LEVOTHYROXINE 25MCG TABLET (0.025MG) PO SCH (05:52)
[2022-12-01] MEDS: LEVOTHYROXINE 150MCG TABLET (0.15MG) PO SCH (05:52)
[2022-12-01 06:07] VITALS: BP 137/66; TEMP 98.1; O2SAT 91
[2022-12-01 06:30] LABS: HEMATOCRIT 28.8 % (36.0-47.0); HEMOGLOBIN 9.1 g/dl (12.0-15.5); MEAN CORPUSCULAR HEMOGLOBIN 27.7 pg (27.0-33.0); MEAN CORPUSCULAR HGB CONC 31.6 g/dl (32.0-36.5); MEAN CORPUSCULAR VOLUME 87.8 fl (80.0-96.0); PLATELET COUNT, AUTOMATED 239 10^3/uL (150-450); RED BLOOD COUNT 3.28 10^6/uL (4.00-5.40); WHITE BLOOD COUNT 7.9 10^3/uL (4.0-10.0)
[2022-12-01 06:46] LABS: ALBUMIN 2.4 G/DL (3.2-5.2); BILIRUBIN,TOTAL 0.6 MG/DL (0.3-1.2); CALCIUM LEVEL 7.9 MG/DL (8.3-10.6); CREATININE FOR GFR 1.01 MG/DL (0.55-1.30); GLOMERULAR FILTRATION RATE 57.4 (>39); POTASSIUM SERUM 3.9 MMOL/L (3.5-5.1); TOTAL PROTEIN 5.4 G/DL (5.7-8.2)
[2022-12-01] MEDS: COMBIVENT RESPIMAT 100-20MCG INHALER 4GM INH SCH ×3 (07:38→19:45)
[2022-12-01] MEDS: CYANOCOBALAMIN 500 MCG TAB PO SCH (09:35)
[2022-12-01] MEDS: bisoproloL fumarate 5 MG TAB PO SCH (09:35)
[2022-12-01] MEDS: INSULIN LISPRO (NovoLOG) PER UNIT SC SCH ×4 (09:35→20:20)
[2022-12-01] MEDS: PANTOPRAZOLE 40MG TAB (PROTONIX) PO SCH ×2 (09:35→20:31)
[2022-12-01] MEDS: CEFDINIR 300 MG CAP (OMNICEF) PO SCH (09:36)
[2022-12-01] MEDS: LACTOBACILLUS ACIDOPHILUS CAP (BACID) PO SCH ×4 (09:36→20:31)
[2022-12-01] MEDS: DULoxetine 20MG CAP (CYMBALTA) PO SCH (09:36)
[2022-12-01] MEDS: LINEZOLID 600MG TABLET (ZYVOX) PO SCH ×2 (09:37→20:31)
[2022-12-01] MEDS: FERROUS SULFATE 325MG TAB PO SCH ×2 (09:37→20:31)
[2022-12-01] MEDS: GABAPENTIN 100 MG CAP PO SCH ×3 (09:37→20:31)
[2022-12-01] MEDS: FUROSEMIDE 20 MG TAB PO SCH (09:37)
[2022-12-01] MEDS: LOSARTAN 25 MG TAB PO SCH (09:37)
[2022-12-01 10:00] VITALS: BP 157/67; TEMP 97.7; O2SAT 95
[2022-12-01 14:00] VITALS: BP 159/71; TEMP 98.1; O2SAT 95
[2022-12-01 18:00] VITALS: BP 160/78; TEMP 97.5; O2SAT 98
[2022-12-01] MEDS: oxyCODONE 5MG TAB PO PRN (20:31)
[2022-12-01] MEDS: LEVEMIR (INSULIN DETEMIR) 1 UNITS/0.01ML SC SCH (20:31)
[2022-12-01] MEDS: ROSUVASTATIN 10 MG TAB (CRESTOR) PO SCH (20:31)
[2022-12-01 21:33] VITALS: BP 173/82; TEMP 97.9; O2SAT 96
[2022-12-01] MEDS: MICONAZOLE-7 VAGINAL 2% CREAM 47.7GM PV SCH (22:31)
[2022-12-02] MEDS: LEVOTHYROXINE 150MCG TABLET (0.15MG) PO SCH (06:11)
[2022-12-02] MEDS: LEVOTHYROXINE 25MCG TABLET (0.025MG) PO SCH (06:11)
[2022-12-02 06:33] VITALS: BP 149/69; TEMP 98.4; O2SAT 95
[2022-12-02] MEDS: COMBIVENT RESPIMAT 100-20MCG INHALER 4GM INH SCH ×3 (07:14→19:35)
[2022-12-02 07:20] LABS: HEMATOCRIT 28.4 % (36.0-47.0); MEAN CORPUSCULAR HEMOGLOBIN 27.4 pg (27.0-33.0); MEAN CORPUSCULAR HGB CONC 31.7 g/dl (32.0-36.5); MEAN CORPUSCULAR VOLUME 86.3 fl (80.0-96.0); PLATELET COUNT, AUTOMATED 215 10^3/uL (150-450); RED BLOOD COUNT 3.29 10^6/uL (4.00-5.40)
[2022-12-02 07:52] LABS: ALBUMIN 2.5 G/DL (3.2-5.2); ALKALINE PHOSPHATASE 147 U/L (46-116); ALT/SGPT 22 U/L (7.0-40); AST/SGOT 14 U/L (<34); BILIRUBIN,TOTAL 0.8 MG/DL (0.3-1.2); BLOOD UREA NITROGEN 15 MG/DL (9-23); CALCIUM LEVEL 7.8 MG/DL (8.3-10.6); CARBON DIOXIDE LEVEL 26 MMOL/L (20-31); CHLORIDE LEVEL 108 MMOL/L (98-107); CREATININE FOR GFR 0.96 MG/DL (0.55-1.30); GLOMERULAR FILTRATION RATE > 60.0 (>39); GLUCOSE, FASTING 146 MG/DL (74-106); POTASSIUM SERUM 3.7 MMOL/L (3.5-5.1); SODIUM LEVEL 141 MMOL/L (136-145); TOTAL PROTEIN 5.5 G/DL (5.7-8.2)
[2022-12-02] MEDS: ENOXAPARIN 30MG/0.3ML SYRINGE (J1650 PER 10MG) SC SCH (08:07)
[2022-12-02] MEDS: INSULIN LISPRO (NovoLOG) PER UNIT SC SCH ×4 (08:08→20:38)
[2022-12-02] MEDS: CYANOCOBALAMIN 500 MCG TAB PO SCH (08:08)
[2022-12-02] MEDS: DULoxetine 20MG CAP (CYMBALTA) PO SCH (08:09)
[2022-12-02] MEDS: bisoproloL fumarate 5 MG TAB PO SCH (08:09)
[2022-12-02] MEDS: FERROUS SULFATE 325MG TAB PO SCH ×2 (08:09→20:49)
[2022-12-02] MEDS: PANTOPRAZOLE 40MG TAB (PROTONIX) PO SCH ×2 (08:09→20:49)
[2022-12-02] MEDS: GABAPENTIN 100 MG CAP PO SCH ×3 (08:09→20:49)
[2022-12-02] MEDS: LINEZOLID 600MG TABLET (ZYVOX) PO SCH (08:09)
[2022-12-02] MEDS: LACTOBACILLUS ACIDOPHILUS CAP (BACID) PO SCH ×4 (08:09→20:49)
[2022-12-02] MEDS: oxyCODONE 5MG TAB PO PRN ×2 (09:43→19:26)
[2022-12-02] MEDS: ROSUVASTATIN 10 MG TAB (CRESTOR) PO SCH (20:49)
[2022-12-02] MEDS: LEVEMIR (INSULIN DETEMIR) 1 UNITS/0.01ML SC SCH (20:49)
[2022-12-02] MEDS: MICONAZOLE-7 VAGINAL 2% CREAM 47.7GM PV SCH (20:50)
[2022-12-03 05:31] VITALS: BP 144/67; TEMP 98.4; O2SAT 90
[2022-12-03] MEDS: LEVOTHYROXINE 25MCG TABLET (0.025MG) PO SCH (05:33)
[2022-12-03] MEDS: LEVOTHYROXINE 150MCG TABLET (0.15MG) PO SCH (05:33)
[2022-12-03 06:27] LABS: HEMATOCRIT 27.8 % (36.0-47.0); HEMOGLOBIN 8.9 g/dl (12.0-15.5); MEAN CORPUSCULAR HEMOGLOBIN 27.8 pg (27.0-33.0); MEAN CORPUSCULAR VOLUME 86.9 fl (80.0-96.0); PLATELET COUNT, AUTOMATED 208 10^3/uL (150-450); WHITE BLOOD COUNT 8.2 10^3/uL (4.0-10.0)
[2022-12-03 06:50] LABS: ALBUMIN 2.5 G/DL (3.2-5.2); BILIRUBIN,TOTAL 0.8 MG/DL (0.3-1.2); CALCIUM LEVEL 7.9 MG/DL (8.3-10.6); CREATININE FOR GFR 0.99 MG/DL (0.55-1.30); GLOMERULAR FILTRATION RATE 58.7 (>39); POTASSIUM SERUM 3.6 MMOL/L (3.5-5.1); TOTAL PROTEIN 5.5 G/DL (5.7-8.2)
[2022-12-03] MEDS: COMBIVENT RESPIMAT 100-20MCG INHALER 4GM INH SCH ×3 (07:31→19:15)
[2022-12-03] MEDS: oxyCODONE 5MG TAB PO PRN ×2 (09:33→14:09)
[2022-12-03] MEDS: FUROSEMIDE 20 MG TAB PO SCH (09:34)
[2022-12-03] MEDS: LACTOBACILLUS ACIDOPHILUS CAP (BACID) PO SCH ×4 (09:34→20:51)
[2022-12-03] MEDS: CYANOCOBALAMIN 500 MCG TAB PO SCH (09:34)
[2022-12-03] MEDS: PANTOPRAZOLE 40MG TAB (PROTONIX) PO SCH ×2 (09:34→20:51)
[2022-12-03] MEDS: FERROUS SULFATE 325MG TAB PO SCH ×2 (09:34→20:51)
[2022-12-03] MEDS: GABAPENTIN 100 MG CAP PO SCH ×3 (09:34→20:51)
[2022-12-03] MEDS: INSULIN LISPRO (NovoLOG) PER UNIT SC SCH ×4 (09:35→20:45)
[2022-12-03] MEDS: bisoproloL fumarate 5 MG TAB PO SCH (09:35)
[2022-12-03] MEDS: ENOXAPARIN 30MG/0.3ML SYRINGE (J1650 PER 10MG) SC SCH (09:35)
[2022-12-03] MEDS: DULoxetine 20MG CAP (CYMBALTA) PO SCH (10:19)
[2022-12-03] MEDS ORDERED: FUROSEMIDE 20 MG TAB PO ONE (12:45)
[2022-12-03] MEDS: ROSUVASTATIN 10 MG TAB (CRESTOR) PO SCH (20:51)
[2022-12-03] MEDS: LEVEMIR (INSULIN DETEMIR) 1 UNITS/0.01ML SC SCH (20:51)
[2022-12-03] MEDS: MICONAZOLE-7 VAGINAL 2% CREAM 47.7GM PV SCH (20:52)
[2022-12-04] MEDS: oxyCODONE 5MG TAB PO PRN ×3 (00:14→21:02)
[2022-12-04 05:23] LABS: HEMATOCRIT 27.7 % (36.0-47.0); HEMOGLOBIN 8.7 g/dl (12.0-15.5); MEAN CORPUSCULAR HEMOGLOBIN 27.1 pg (27.0-33.0); MEAN CORPUSCULAR HGB CONC 31.4 g/dl (32.0-36.5); MEAN CORPUSCULAR VOLUME 86.3 fl (80.0-96.0); PLATELET COUNT, AUTOMATED 213 10^3/uL (150-450); RED BLOOD COUNT 3.21 10^6/uL (4.00-5.40)
[2022-12-04 05:28] LABS: ALBUMIN 2.4 G/DL (3.2-5.2); BILIRUBIN,TOTAL 0.8 MG/DL (0.3-1.2); CALCIUM LEVEL 7.8 MG/DL (8.3-10.6); CREATININE FOR GFR 1.09 MG/DL (0.55-1.30); GLOMERULAR FILTRATION RATE 52.5 (>39); POTASSIUM SERUM 3.6 MMOL/L (3.5-5.1); TOTAL PROTEIN 5.4 G/DL (5.7-8.2)
[2022-12-04 05:30] VITALS: BP 125/56; TEMP 97.9; O2SAT 94
[2022-12-04] MEDS: LEVOTHYROXINE 150MCG TABLET (0.15MG) PO SCH (06:02)
[2022-12-04] MEDS: LEVOTHYROXINE 25MCG TABLET (0.025MG) PO SCH (06:02)
[2022-12-04] MEDS: COMBIVENT RESPIMAT 100-20MCG INHALER 4GM INH SCH ×3 (07:09→19:24)
[2022-12-04] MEDS: INSULIN LISPRO (NovoLOG) PER UNIT SC SCH ×4 (07:30→20:56)
[2022-12-04] MEDS: PANTOPRAZOLE 40MG TAB (PROTONIX) PO SCH ×2 (09:50→20:55)
[2022-12-04] MEDS: FERROUS SULFATE 325MG TAB PO SCH ×2 (09:50→20:55)
[2022-12-04] MEDS: LACTOBACILLUS ACIDOPHILUS CAP (BACID) PO SCH ×4 (09:50→20:55)
[2022-12-04] MEDS: bisoproloL fumarate 5 MG TAB PO SCH (09:51)
[2022-12-04] MEDS: GABAPENTIN 100 MG CAP PO SCH ×3 (09:52→20:55)
[2022-12-04] MEDS: DULoxetine 20MG CAP (CYMBALTA) PO SCH (09:52)
[2022-12-04] MEDS: FUROSEMIDE 20 MG TAB PO SCH (09:52)
[2022-12-04] MEDS: ENOXAPARIN 30MG/0.3ML SYRINGE (J1650 PER 10MG) SC SCH (09:53)
[2022-12-04] MEDS: CYANOCOBALAMIN 500 MCG TAB PO SCH (09:53)
[2022-12-04] MEDS: ROSUVASTATIN 10 MG TAB (CRESTOR) PO SCH (20:55)
[2022-12-04] MEDS: LEVEMIR (INSULIN DETEMIR) 1 UNITS/0.01ML SC SCH (20:56)
[2022-12-04] MEDS: MICONAZOLE-7 VAGINAL 2% CREAM 47.7GM PV SCH (20:56)
[2022-12-05 05:10] VITALS: BP 149/70; TEMP 97.7; O2SAT 92
[2022-12-05 06:00] LABS: HEMATOCRIT 29.4 % (36.0-47.0); HEMOGLOBIN 9.3 g/dl (12.0-15.5); MEAN CORPUSCULAR HEMOGLOBIN 27.4 pg (27.0-33.0); MEAN CORPUSCULAR HGB CONC 31.6 g/dl (32.0-36.5); MEAN CORPUSCULAR VOLUME 86.5 fl (80.0-96.0); PLATELET COUNT, AUTOMATED 212 10^3/uL (150-450); WHITE BLOOD COUNT 7.8 10^3/uL (4.0-10.0)
[2022-12-05] MEDS: LEVOTHYROXINE 25MCG TABLET (0.025MG) PO SCH (06:09)
[2022-12-05] MEDS: LEVOTHYROXINE 150MCG TABLET (0.15MG) PO SCH (06:09)
[2022-12-05 06:25] LABS: ALBUMIN 2.5 G/DL (3.2-5.2); ALKALINE PHOSPHATASE 131 U/L (46-116); ALT/SGPT 20 U/L (7.0-40); AST/SGOT < 8 U/L (<34); BILIRUBIN,TOTAL 0.9 MG/DL (0.3-1.2); BLOOD UREA NITROGEN 15 MG/DL (9-23); CALCIUM LEVEL 8.5 MG/DL (8.3-10.6); CARBON DIOXIDE LEVEL 29 MMOL/L (20-31); CHLORIDE LEVEL 105 MMOL/L (98-107); CREATININE FOR GFR 1.11 MG/DL (0.55-1.30); GLOMERULAR FILTRATION RATE 51.4 (>39); GLUCOSE, FASTING 104 MG/DL (74-106); POTASSIUM SERUM 3.8 MMOL/L (3.5-5.1); SODIUM LEVEL 142 MMOL/L (136-145); TOTAL PROTEIN 5.7 G/DL (5.7-8.2)
[2022-12-05] MEDS: COMBIVENT RESPIMAT 100-20MCG INHALER 4GM INH SCH ×3 (07:34→18:51)
[2022-12-05] MEDS: bisoproloL fumarate 5 MG TAB PO SCH (08:50)
[2022-12-05] MEDS: INSULIN LISPRO (NovoLOG) PER UNIT SC SCH ×4 (08:51→19:50)
[2022-12-05] MEDS: DULoxetine 20MG CAP (CYMBALTA) PO SCH (08:51)
[2022-12-05] MEDS: FUROSEMIDE 20 MG TAB PO SCH (08:51)
[2022-12-05] MEDS: PANTOPRAZOLE 40MG TAB (PROTONIX) PO SCH ×2 (08:51→19:53)
[2022-12-05] MEDS: CYANOCOBALAMIN 500 MCG TAB PO SCH (08:52)
[2022-12-05] MEDS: GABAPENTIN 100 MG CAP PO SCH ×3 (08:52→19:53)
[2022-12-05] MEDS: FERROUS SULFATE 325MG TAB PO SCH ×2 (08:52→19:53)
[2022-12-05] MEDS: LACTOBACILLUS ACIDOPHILUS CAP (BACID) PO SCH ×4 (08:52→19:53)
[2022-12-05] MEDS: ENOXAPARIN 30MG/0.3ML SYRINGE (J1650 PER 10MG) SC SCH (08:52)
[2022-12-05] MEDS: DOCUSATE SODIUM 100MG CAPSULE PO SCH ×2 (09:00→19:53)
[2022-12-05] MEDS: oxyCODONE 5MG TAB PO PRN ×2 (14:31→22:10)
[2022-12-05] MEDS: SENNA 8.6 MG TAB (SENOKOT) PO SCH (19:53)
[2022-12-05] MEDS: ROSUVASTATIN 10 MG TAB (CRESTOR) PO SCH (19:53)
[2022-12-05] MEDS: LEVEMIR (INSULIN DETEMIR) 1 UNITS/0.01ML SC SCH (19:54)
[2022-12-05] MEDS: MICONAZOLE-7 VAGINAL 2% CREAM 47.7GM PV SCH (19:55)
[2022-12-06] MEDS: LEVOTHYROXINE 150MCG TABLET (0.15MG) PO SCH (05:46)
[2022-12-06] MEDS: LEVOTHYROXINE 25MCG TABLET (0.025MG) PO SCH (05:46)
[2022-12-06 05:59] LABS: HEMATOCRIT 28.6 % (36.0-47.0); HEMOGLOBIN 9.3 g/dl (12.0-15.5); MEAN CORPUSCULAR HEMOGLOBIN 27.8 pg (27.0-33.0); MEAN CORPUSCULAR HGB CONC 32.5 g/dl (32.0-36.5); MEAN CORPUSCULAR VOLUME 85.4 fl (80.0-96.0); PLATELET COUNT, AUTOMATED 195 10^3/uL (150-450); RED BLOOD COUNT 3.35 10^6/uL (4.00-5.40); WHITE BLOOD COUNT 9.1 10^3/uL (4.0-10.0)
[2022-12-06 06:00] VITALS: BP 128/58; TEMP 97.4; O2SAT 88
[2022-12-06 06:25] LABS: ALBUMIN 2.5 G/DL (3.2-5.2); BILIRUBIN,TOTAL 0.9 MG/DL (0.3-1.2); CALCIUM LEVEL 8.2 MG/DL (8.3-10.6); CREATININE FOR GFR 1.16 MG/DL (0.55-1.30); GLOMERULAR FILTRATION RATE 48.9 (>39); POTASSIUM SERUM 3.7 MMOL/L (3.5-5.1); TOTAL PROTEIN 5.7 G/DL (5.7-8.2)
[2022-12-06] MEDS: COMBIVENT RESPIMAT 100-20MCG INHALER 4GM INH SCH ×3 (07:17→19:26)
[2022-12-06] MEDS: PANTOPRAZOLE 40MG TAB (PROTONIX) PO SCH ×2 (07:39→19:56)
[2022-12-06] MEDS: FERROUS SULFATE 325MG TAB PO SCH ×2 (07:39→19:56)
[2022-12-06] MEDS: DOCUSATE SODIUM 100MG CAPSULE PO SCH ×2 (07:39→19:56)
[2022-12-06] MEDS: LACTOBACILLUS ACIDOPHILUS CAP (BACID) PO SCH ×4 (07:39→19:56)
[2022-12-06] MEDS: GABAPENTIN 100 MG CAP PO SCH ×3 (07:39→19:56)
[2022-12-06] MEDS: CYANOCOBALAMIN 500 MCG TAB PO SCH (07:39)
[2022-12-06] MEDS: ENOXAPARIN 30MG/0.3ML SYRINGE (J1650 PER 10MG) SC SCH (07:40)
[2022-12-06] MEDS: INSULIN LISPRO (NovoLOG) PER UNIT SC SCH ×4 (07:40→19:51)
[2022-12-06] MEDS: FUROSEMIDE 20 MG TAB PO SCH (07:40)
[2022-12-06] MEDS: bisoproloL fumarate 5 MG TAB PO SCH (07:41)
[2022-12-06] MEDS: DULoxetine 20MG CAP (CYMBALTA) PO SCH (07:43)
[2022-12-06] MEDS: oxyCODONE 5MG TAB PO PRN ×2 (15:47→20:04)
[2022-12-06] MEDS: ROSUVASTATIN 10 MG TAB (CRESTOR) PO SCH (19:56)
[2022-12-06] MEDS: LEVEMIR (INSULIN DETEMIR) 1 UNITS/0.01ML SC SCH (19:56)
[2022-12-06] MEDS: SENNA 8.6 MG TAB (SENOKOT) PO SCH (19:56)
[2022-12-06] MEDS: MICONAZOLE-7 VAGINAL 2% CREAM 47.7GM PV SCH (19:57)
[2022-12-07] MEDS: oxyCODONE 5MG TAB PO PRN ×3 (03:35→21:01)
[2022-12-07] MEDS: LEVOTHYROXINE 150MCG TABLET (0.15MG) PO SCH (05:35)
[2022-12-07] MEDS: LEVOTHYROXINE 25MCG TABLET (0.025MG) PO SCH (05:35)
[2022-12-07 05:52] VITALS: BP 151/68; TEMP 98.2; O2SAT 92
[2022-12-07 06:04] LABS: HEMATOCRIT 28.8 % (36.0-47.0); HEMOGLOBIN 9.3 g/dl (12.0-15.5); MEAN CORPUSCULAR HEMOGLOBIN 27.4 pg (27.0-33.0); MEAN CORPUSCULAR HGB CONC 32.3 g/dl (32.0-36.5); MEAN CORPUSCULAR VOLUME 84.7 fl (80.0-96.0); PLATELET COUNT, AUTOMATED 197 10^3/uL (150-450); WHITE BLOOD COUNT 11.5 10^3/uL (4.0-10.0)
[2022-12-07 06:26] LABS: ALBUMIN 2.5 G/DL (3.2-5.2); BILIRUBIN,TOTAL 1.2 MG/DL (0.3-1.2); CALCIUM LEVEL 7.9 MG/DL (8.3-10.6); CREATININE FOR GFR 1.08 MG/DL (0.55-1.30); GLOMERULAR FILTRATION RATE 53.1 (>39); POTASSIUM SERUM 3.3 MMOL/L (3.5-5.1); TOTAL PROTEIN 5.8 G/DL (5.7-8.2)
[2022-12-07] MEDS: COMBIVENT RESPIMAT 100-20MCG INHALER 4GM INH SCH ×3 (07:11→19:13)
[2022-12-07] MEDS: GABAPENTIN 100 MG CAP PO SCH ×3 (10:02→21:00)
[2022-12-07] MEDS: INSULIN LISPRO (NovoLOG) PER UNIT SC SCH ×4 (10:02→20:49)
[2022-12-07] MEDS: LACTOBACILLUS ACIDOPHILUS CAP (BACID) PO SCH ×4 (10:03→21:00)
[2022-12-07] MEDS: FERROUS SULFATE 325MG TAB PO SCH ×2 (10:03→21:00)
[2022-12-07] MEDS: PANTOPRAZOLE 40MG TAB (PROTONIX) PO SCH ×2 (10:03→21:00)
[2022-12-07] MEDS: CYANOCOBALAMIN 500 MCG TAB PO SCH (10:04)
[2022-12-07] MEDS: ENOXAPARIN 30MG/0.3ML SYRINGE (J1650 PER 10MG) SC SCH (10:04)
[2022-12-07] MEDS: DULoxetine 20MG CAP (CYMBALTA) PO SCH (10:04)
[2022-12-07] MEDS: bisoproloL fumarate 5 MG TAB PO SCH (10:04)
[2022-12-07] MEDS: FUROSEMIDE 20 MG TAB PO SCH (10:05)
[2022-12-07] MEDS: DOCUSATE SODIUM 100MG CAPSULE PO SCH ×2 (10:05→21:00)
[2022-12-07] MEDS ORDERED: POTASSIUM CHLORIDE 10MEQ SR TABLET PO ONE (13:45)
[2022-12-07] MEDS: LIDOCAINE 5% (LIDODERM) PATCH TD PRN (14:04)
[2022-12-07] MEDS: SENNA 8.6 MG TAB (SENOKOT) PO SCH (21:00)
[2022-12-07] MEDS: ROSUVASTATIN 10 MG TAB (CRESTOR) PO SCH (21:00)
[2022-12-07] MEDS: LEVEMIR (INSULIN DETEMIR) 1 UNITS/0.01ML SC SCH (21:01)
[2022-12-07] MEDS: MICONAZOLE-7 VAGINAL 2% CREAM 47.7GM PV SCH (21:01)
[2022-12-08 05:39] VITALS: BP 137/67; TEMP 97.7; O2SAT 93
[2022-12-08] MEDS: LEVOTHYROXINE 150MCG TABLET (0.15MG) PO SCH (05:41)
[2022-12-08] MEDS: LEVOTHYROXINE 25MCG TABLET (0.025MG) PO SCH (05:41)
[2022-12-08 05:45] LABS: HEMATOCRIT 28.2 % (36.0-47.0); MEAN CORPUSCULAR HEMOGLOBIN 27.3 pg (27.0-33.0); MEAN CORPUSCULAR HGB CONC 31.9 g/dl (32.0-36.5); MEAN CORPUSCULAR VOLUME 85.5 fl (80.0-96.0); PLATELET COUNT, AUTOMATED 189 10^3/uL (150-450)
[2022-12-08 06:18] LABS: ALBUMIN 2.5 G/DL (3.2-5.2); BILIRUBIN,TOTAL 0.9 MG/DL (0.3-1.2); CALCIUM LEVEL 7.8 MG/DL (8.3-10.6); CREATININE FOR GFR 1.18 MG/DL (0.55-1.30); GLOMERULAR FILTRATION RATE 47.9 (>39); POTASSIUM SERUM 3.6 MMOL/L (3.5-5.1); TOTAL PROTEIN 5.7 G/DL (5.7-8.2)
[2022-12-08] MEDS: COMBIVENT RESPIMAT 100-20MCG INHALER 4GM INH SCH ×2 (07:11→14:46)
[2022-12-08] MEDS: ENOXAPARIN 30MG/0.3ML SYRINGE (J1650 PER 10MG) SC SCH (09:23)
[2022-12-08] MEDS: DULoxetine 20MG CAP (CYMBALTA) PO SCH (09:23)
[2022-12-08] MEDS: CYANOCOBALAMIN 500 MCG TAB PO SCH (09:23)
[2022-12-08] MEDS: PANTOPRAZOLE 40MG TAB (PROTONIX) PO SCH ×2 (09:24→19:53)
[2022-12-08] MEDS: LACTOBACILLUS ACIDOPHILUS CAP (BACID) PO SCH ×4 (09:24→19:52)
[2022-12-08] MEDS: FERROUS SULFATE 325MG TAB PO SCH ×2 (09:24→19:53)
[2022-12-08] MEDS: GABAPENTIN 100 MG CAP PO SCH ×3 (09:24→19:52)
[2022-12-08] MEDS: bisoproloL fumarate 5 MG TAB PO SCH (09:24)
[2022-12-08] MEDS: DOCUSATE SODIUM 100MG CAPSULE PO SCH ×2 (09:25→19:53)
[2022-12-08] MEDS: INSULIN LISPRO (NovoLOG) PER UNIT SC SCH ×4 (09:36→19:54)
[2022-12-08] MEDS: LIDOCAINE 5% (LIDODERM) PATCH TD PRN (12:40)
[2022-12-08] MEDS: ROSUVASTATIN 10 MG TAB (CRESTOR) PO SCH (19:53)
[2022-12-08] MEDS: SENNA 8.6 MG TAB (SENOKOT) PO SCH (19:53)
[2022-12-08] MEDS: LEVEMIR (INSULIN DETEMIR) 1 UNITS/0.01ML SC SCH (19:54)
[2022-12-08] MEDS: MICONAZOLE-7 VAGINAL 2% CREAM 47.7GM PV SCH (19:55)
[2022-12-08] MEDS: oxyCODONE 5MG TAB PO PRN (19:55)
[2022-12-09] MEDS: COMBIVENT RESPIMAT 100-20MCG INHALER 4GM INH SCH ×2 (00:43→07:08)
[2022-12-09] MEDS: LEVOTHYROXINE 25MCG TABLET (0.025MG) PO SCH (05:54)
[2022-12-09] MEDS: LEVOTHYROXINE 150MCG TABLET (0.15MG) PO SCH (05:54)
[2022-12-09 05:59] VITALS: BP 120/55; TEMP 98.4; O2SAT 95
[2022-12-09] MEDS ORDERED: ASPIRIN 81MG ENTERIC TABLET PO SCH (09:00)
[2022-12-09 09:01] VITALS: BP 134/63
[2022-12-09] MEDS: bisoproloL fumarate 5 MG TAB PO SCH (09:01)
[2022-12-09] MEDS: LACTOBACILLUS ACIDOPHILUS CAP (BACID) PO SCH ×2 (09:02→12:22)
[2022-12-09] MEDS: DULoxetine 20MG CAP (CYMBALTA) PO SCH (09:02)
[2022-12-09] MEDS: FERROUS SULFATE 325MG TAB PO SCH (09:02)
[2022-12-09] MEDS: GABAPENTIN 100 MG CAP PO SCH (09:02)
[2022-12-09] MEDS: CYANOCOBALAMIN 500 MCG TAB PO SCH (09:02)
[2022-12-09] MEDS: DOCUSATE SODIUM 100MG CAPSULE PO SCH (09:02)
[2022-12-09] MEDS: PANTOPRAZOLE 40MG TAB (PROTONIX) PO SCH (09:03)
[2022-12-09] MEDS: ENOXAPARIN 30MG/0.3ML SYRINGE (J1650 PER 10MG) SC SCH (09:03)
[2022-12-09] MEDS: INSULIN LISPRO (NovoLOG) PER UNIT SC SCH ×2 (09:03→12:22)
[2022-12-09] MEDS ORDERED: AMLO1TAB25 PO (09:34)
[2022-12-09] MEDS ORDERED: SENN-188 PO (09:34)
[2022-12-09] MEDS: oxyCODONE 5MG TAB PO PRN (10:44)
== END 2022-12-09 12:58 | DRG 559 ==
LOC: M ED 14:15 → EDBD 14:15 → M ED INP 21:58 → INTOOBSV 21:58 → ENRESERV 11-25 12:51 → M MSPAV 11-25 13:30 → OBSVTOIN 11-29 18:11
PROVIDERS: ADMIT Internal Medicine; ATTEND Family Medicine
PROC: 30233N1 Transfusion of Nonautologous Red Blood Cells into Peripheral Vein, Percutaneous Approach (ICD-10-PCS; 2022-11-29)
PROC: 0DB68ZX Excision of Stomach, Via Natural or Artificial Opening Endoscopic, Diagnostic (ICD-10-PCS; 2022-11-30)
PROC: 0DBH8ZX Excision of Cecum, Via Natural or Artificial Opening Endoscopic, Diagnostic (ICD-10-PCS; 2022-11-30)
PROC: 0W3P8ZZ Control Bleeding in Gastrointestinal Tract, Via Natural or Artificial Opening Endoscopic (ICD-10-PCS; 2022-11-30)
PROC: 0DB78ZX Excision of Stomach, Pylorus, Via Natural or Artificial Opening Endoscopic, Diagnostic (ICD-10-PCS; principal; 2022-11-30 12:00)
DX: S72.142S Displaced intertrochanteric fracture of left femur, sequela (principal); K55.21 Angiodysplasia of colon with hemorrhage; N39.0 Urinary tract infection, site not specified; D62 Acute posthemorrhagic anemia; M96.840 Postprocedural hematoma of a musculoskeletal structure following a musculoskeletal system procedure; J90 Pleural effusion, not elsewhere classified; R53.1 Weakness; R62.7 Adult failure to thrive; R60.0 Localized edema; I12.9 Hypertensive chronic kidney disease with stage 1 through stage 4 chronic kidney disease, or unspecified chronic kidney disease; E11.22 Type 2 diabetes mellitus with diabetic chronic kidney disease; J45.909 Unspecified asthma, uncomplicated; N18.30 Chronic kidney disease, stage 3 unspecified; E03.9 Hypothyroidism, unspecified; K21.9 Gastro-esophageal reflux disease without esophagitis; R33.9 Retention of urine, unspecified; E78.5 Hyperlipidemia, unspecified; F39 Unspecified mood [affective] disorder; D50.9 Iron deficiency anemia, unspecified; D51.9 Vitamin B12 deficiency anemia, unspecified; L89.621 Pressure ulcer of left heel, stage 1; M19.072 Primary osteoarthritis, left ankle and foot; D12.0 Benign neoplasm of cecum; K31.7 Polyp of stomach and duodenum; B96.1 Klebsiella pneumoniae [K. pneumoniae] as the cause of diseases classified elsewhere; K29.70 Gastritis, unspecified, without bleeding; B95.2 Enterococcus as the cause of diseases classified elsewhere; I25.10 Atherosclerotic heart disease of native coronary artery without angina pectoris; K76.0 Fatty (change of) liver, not elsewhere classified; R53.81 Other malaise; Z98.41 Cataract extraction status, right eye; Z98.42 Cataract extraction status, left eye; Z79.82 Long term (current) use of aspirin; Z79.4 Long term (current) use of insulin; Z79.890 Hormone replacement therapy; Z79.899 Other long term (current) drug therapy; Z85.3 Personal history of malignant neoplasm of breast; Z88.0 Allergy status to penicillin; Z90.13 Acquired absence of bilateral breasts and nipples; Z89.422 Acquired absence of other left toe(s); Y83.8 Other surgical procedures as the cause of abnormal reaction of the patient, or of later complication, without mention of misadventure at the time of the procedure

== ENCOUNTER → 2022-11-26 | Outpatient (CLI) | payer MEDICARE ==
[~2022-11-26] MED LIST changes: +ASPI-161 PO; +HYDR-3910 PO; +ROSU40TA4 PO; +SYNT25TA PO
== END ==
LOC: M SOG 08:09
PROVIDERS: ATTEND Orthopaedic Surgery
DX: S72.142A Displaced intertrochanteric fracture of left femur, initial encounter for closed fracture (principal)

== ENCOUNTER → 2022-12-13 | Outpatient (REF) | payer MEDICAID, MEDICARE, OTHER ==
[~2022-12-13] MED LIST changes: +AMLO1TAB25 PO; +SENN-188 PO
[2022-12-13 09:20] LABS: HEMATOCRIT 27.8 % (36.0-47.0); HEMOGLOBIN 8.8 g/dl (12.0-15.5); MEAN CORPUSCULAR HEMOGLOBIN 27.2 pg (27.0-33.0); MEAN CORPUSCULAR HGB CONC 31.7 g/dl (32.0-36.5); MEAN CORPUSCULAR VOLUME 86.1 fl (80.0-96.0); PLATELET COUNT, AUTOMATED 220 10^3/uL (150-450); RED BLOOD COUNT 3.23 10^6/uL (4.00-5.40); WHITE BLOOD COUNT 9.5 10^3/uL (4.0-10.0)
[2022-12-13 09:34] LABS: BLOOD UREA NITROGEN 19 MG/DL (9-23); CALCIUM LEVEL 8.5 MG/DL (8.3-10.6); CARBON DIOXIDE LEVEL 26 MMOL/L (20-31); CHLORIDE LEVEL 106 MMOL/L (98-107); CREATININE FOR GFR 0.97 MG/DL (0.55-1.30); GLOMERULAR FILTRATION RATE > 60.0 (>39); GLUCOSE, FASTING 138 MG/DL (74-106); POTASSIUM SERUM 3.9 MMOL/L (3.5-5.1); SODIUM LEVEL 140 MMOL/L (136-145)
== END ==
PROVIDERS: ATTEND Internal Medicine
DX: I10 Essential (primary) hypertension (principal)

== ENCOUNTER → 2022-12-22 | Outpatient (REF) ==
[2022-12-22 08:44] LABS: HEMATOCRIT 32.7 % (36.0-47.0); HEMOGLOBIN 10.7 g/dl (12.0-15.5); MEAN CORPUSCULAR HEMOGLOBIN 27.9 pg (27.0-33.0); MEAN CORPUSCULAR HGB CONC 32.7 g/dl (32.0-36.5); MEAN CORPUSCULAR VOLUME 85.4 fl (80.0-96.0); PLATELET COUNT, AUTOMATED 200 10^3/uL (150-450); RED BLOOD COUNT 3.83 10^6/uL (4.00-5.40); WHITE BLOOD COUNT 11.1 10^3/uL (4.0-10.0)
[2022-12-22 09:13] LABS: BLOOD UREA NITROGEN 25 MG/DL (9-23); CALCIUM LEVEL 8.8 MG/DL (8.3-10.6); CARBON DIOXIDE LEVEL 23 MMOL/L (20-31); CHLORIDE LEVEL 108 MMOL/L (98-107); CREATININE FOR GFR 0.84 MG/DL (0.55-1.30); GLOMERULAR FILTRATION RATE > 60.0 (>39); GLUCOSE, FASTING 202 MG/DL (74-106); POTASSIUM SERUM 4.4 MMOL/L (3.5-5.1); SODIUM LEVEL 141 MMOL/L (136-145)
== END ==
PROVIDERS: ATTEND Physician Assistant
DX: I10 Essential (primary) hypertension (principal)

== ENCOUNTER → 2022-12-24 | Outpatient (CLI) | payer MEDICARE, OTHER | LOC: M RAD 13:35 | PROVIDERS: ATTEND Physician Assistant | DX: M79.662 Pain in left lower leg (principal) ==

== ENCOUNTER → 2022-12-28 | Outpatient (CLI) | payer MEDICARE | LOC: M RAD 09:48 | PROVIDERS: ATTEND Internal Medicine | DX: M25.552 Pain in left hip (principal) ==

== ENCOUNTER → 2022-12-29 | Outpatient (REF) ==
[2022-12-29 08:48] LABS: HEMATOCRIT 29.4 % (36.0-47.0); HEMOGLOBIN 9.4 g/dl (12.0-15.5); MEAN CORPUSCULAR HEMOGLOBIN 27.3 pg (27.0-33.0); MEAN CORPUSCULAR VOLUME 85.5 fl (80.0-96.0); PLATELET COUNT, AUTOMATED 170 10^3/uL (150-450); RED BLOOD COUNT 3.44 10^6/uL (4.00-5.40); WHITE BLOOD COUNT 8.2 10^3/uL (4.0-10.0)
[2022-12-29 09:17] LABS: CALCIUM LEVEL 8.6 MG/DL (8.3-10.6); CREATININE FOR GFR 1.07 MG/DL (0.55-1.30); GLOMERULAR FILTRATION RATE 53.7 (>39); POTASSIUM SERUM 4.3 MMOL/L (3.5-5.1)
== END ==
PROVIDERS: ATTEND Physician Assistant
DX: I10 Essential (primary) hypertension (principal)

== ENCOUNTER → 2023-01-03 | Outpatient (REF) | payer MEDICARE | PROVIDERS: ATTEND Internal Medicine | DX: M77.32 Calcaneal spur, left foot (principal); I70.90 Unspecified atherosclerosis ==

== ENCOUNTER → 2023-01-10 | Outpatient (REF) | PROVIDERS: ATTEND Physician Assistant | DX: I10 Essential (primary) hypertension (principal) ==

== ENCOUNTER → 2023-01-31 | Outpatient (REF) ==
[~2023-01-31] MED LIST changes: +DICL100G10 TOP; -DICL1GEL3 TOP
[2023-01-31 08:19] LABS: HEMATOCRIT 28.6 % (36.0-47.0); HEMOGLOBIN 9.3 g/dl (12.0-15.5); MEAN CORPUSCULAR HEMOGLOBIN 27.8 pg (27.0-33.0); MEAN CORPUSCULAR HGB CONC 32.5 g/dl (32.0-36.5); MEAN CORPUSCULAR VOLUME 85.6 fl (80.0-96.0); PLATELET COUNT, AUTOMATED 221 10^3/uL (150-450); RED BLOOD COUNT 3.34 10^6/uL (4.00-5.40); WHITE BLOOD COUNT 8.4 10^3/uL (4.0-10.0)
[2023-01-31 08:48] LABS: CALCIUM LEVEL 8.8 MG/DL (8.3-10.6); CREATININE FOR GFR 1.45 MG/DL (0.55-1.30); GLOMERULAR FILTRATION RATE 37.8 (>39); POTASSIUM SERUM 4.2 MMOL/L (3.5-5.1)
== END ==
PROVIDERS: ATTEND Internal Medicine
DX: N18.9 Chronic kidney disease, unspecified (principal)

== ENCOUNTER → 2023-02-02 | Outpatient (CLI) | payer MEDICARE | LOC: M SOG 09:41 | PROVIDERS: ATTEND Orthopaedic Surgery | DX: S72.142A Displaced intertrochanteric fracture of left femur, initial encounter for closed fracture (principal); Z47.89 Encounter for other orthopedic aftercare; W18.30XA Fall on same level, unspecified, initial encounter; Y92.009 Unspecified place in unspecified non-institutional (private) residence as the place of occurrence of the external cause ==

== ENCOUNTER → 2023-02-09 | Outpatient (REF) | PROVIDERS: ATTEND Internal Medicine | DX: E03.9 Hypothyroidism, unspecified (principal) ==

== ENCOUNTER → 2023-02-11 | Outpatient (CLI) | payer MEDICARE | LOC: M SOG 13:26 | PROVIDERS: ATTEND Orthopaedic Surgery | DX: S72.142D Displaced intertrochanteric fracture of left femur, subsequent encounter for closed fracture with routine healing (principal); M25.562 Pain in left knee ==

== ENCOUNTER → 2023-02-22 | Outpatient (REF) ==
[2023-02-22 13:48] LABS: HEMATOCRIT 30.4 % (36.0-47.0); HEMOGLOBIN 9.6 g/dl (12.0-15.5); MEAN CORPUSCULAR HEMOGLOBIN 27.6 pg (27.0-33.0); MEAN CORPUSCULAR HGB CONC 31.6 g/dl (32.0-36.5); MEAN CORPUSCULAR VOLUME 87.4 fl (80.0-96.0); PLATELET COUNT, AUTOMATED 210 10^3/uL (150-450); RED BLOOD COUNT 3.48 10^6/uL (4.00-5.40); WHITE BLOOD COUNT 7.8 10^3/uL (4.0-10.0)
[2023-02-22 14:08] LABS: ALBUMIN 2.8 G/DL (3.2-5.2); ALKALINE PHOSPHATASE 68 U/L (46-116); ALT/SGPT 9 U/L (7.0-40); AST/SGOT < 8 U/L (<34); BILIRUBIN,DIRECT 0.2 MG/DL (<0.4); BILIRUBIN,TOTAL 0.6 MG/DL (0.3-1.2); BLOOD UREA NITROGEN 45 MG/DL (9-23); CALCIUM LEVEL 8.5 MG/DL (8.3-10.6); CARBON DIOXIDE LEVEL 28 MMOL/L (20-31); CHLORIDE LEVEL 106 MMOL/L (98-107); CREATININE FOR GFR 1.61 MG/DL (0.55-1.30); GLOMERULAR FILTRATION RATE 33.5 (>39); GLUCOSE, FASTING 236 MG/DL (74-106); POTASSIUM SERUM 4.5 MMOL/L (3.5-5.1); SODIUM LEVEL 141 MMOL/L (136-145); TOTAL PROTEIN 5.8 G/DL (5.7-8.2)
== END ==
PROVIDERS: ATTEND Physician Assistant
DX: E11.9 Type 2 diabetes mellitus without complications (principal)

== ENCOUNTER → 2023-03-02 | Outpatient (REF) ==
[2023-03-02 11:08] LABS: HEMATOCRIT 29.9 % (36.0-47.0); HEMOGLOBIN 9.5 g/dl (12.0-15.5); MEAN CORPUSCULAR HEMOGLOBIN 27.9 pg (27.0-33.0); MEAN CORPUSCULAR HGB CONC 31.8 g/dl (32.0-36.5); MEAN CORPUSCULAR VOLUME 87.7 fl (80.0-96.0); PLATELET COUNT, AUTOMATED 250 10^3/uL (150-450); RED BLOOD COUNT 3.41 10^6/uL (4.00-5.40); WHITE BLOOD COUNT 7.5 10^3/uL (4.0-10.0)
[2023-03-02 11:35] LABS: CREATININE FOR GFR 1.33 MG/DL (0.55-1.30); GLOMERULAR FILTRATION RATE 41.7 (>39); POTASSIUM SERUM 4.9 MMOL/L (3.5-5.1)
[2023-03-02 11:36] LABS: THYROID STIMULATING HORMONE 4.577 uIU/ML (0.55-4.78)
== END ==
PROVIDERS: ATTEND Physician Assistant
DX: E03.9 Hypothyroidism, unspecified (principal)

== ENCOUNTER → 2023-03-02 | Outpatient (CLI) | payer MEDICARE, MEDICAID | LOC: M RAD 10:20 | PROVIDERS: ATTEND Surgery | DX: L89.623 Pressure ulcer of left heel, stage 3 (principal); I70.212 Atherosclerosis of native arteries of extremities with intermittent claudication, left leg ==

== ENCOUNTER → 2023-04-05 | Outpatient (CLI) | payer MEDICARE, MEDICAID ==
[~2023-04-05] VITALS: Ht 162.6 cm; Wt 82.0 kg
[~2023-04-05] MED LIST changes: +HEPARIN 1,000UNITS/ML 10ML VIAL (FOR RADIOLOGY & DIALYSIS ONLY) As Ordered ONE; +ISOVUE-300 61% 100ML VIAL As Ordered ONE; +LABETALOL 100MG/20ML VIAL As Ordered ONE; +LIDOCAINE 1% MDV 20ML VIAL As Ordered ONE; +MEPERIDINE 25 MG/ML 1ML VIAL As Ordered ONE; +MIDAZOLAM INJ 2MG/2ML VIAL As Ordered ONE; +ceFAZolin 2 GM/D5W 50 ML IV BAG As Ordered ONE; +ceFAZolin SOD 2 GM in IV 1 EA IV ONE; +fentaNYL 100 MCG/2 ML INJECTION As Ordered ONE; +hydrALAZINE 20MG/ML 1ML VIAL As Ordered ONE
[2023-04-05 09:00] VITALS: TEMP 97.7
[2023-04-05 09:28] LABS: HEMATOCRIT 29.5 % (36.0-47.0); HEMOGLOBIN 9.6 g/dl (12.0-15.5); MEAN CORPUSCULAR HGB CONC 32.5 g/dl (32.0-36.5); PLATELET COUNT, AUTOMATED 223 10^3/uL (150-450); RED BLOOD COUNT 3.43 10^6/uL (4.00-5.40); WHITE BLOOD COUNT 8.6 10^3/uL (4.0-10.0)
[2023-04-05 09:40] LABS: INR 1.11
[2023-04-05 09:41] LABS: PARTIAL THROMBOPLASTIN TIME 28.9 SECONDS (24.8-34.2)
[2023-04-05 09:57] LABS: CALCIUM LEVEL 8.7 MG/DL (8.3-10.6); CREATININE FOR GFR 1.5 MG/DL (0.55-1.30); GLOMERULAR FILTRATION RATE 36.3 (>39); MAGNESIUM LEVEL 1.8 MG/DL (1.8-2.4); POTASSIUM SERUM 4.3 MMOL/L (3.5-5.1)
[2023-04-05 14:30] VITALS: BP 166/79; O2SAT 99
== END ==
LOC: M IRPRO 08:45
PROVIDERS: ATTEND Surgery Vascular Surgery
DX: I73.9 Peripheral vascular disease, unspecified (principal); E11.22 Type 2 diabetes mellitus with diabetic chronic kidney disease; N18.30 Chronic kidney disease, stage 3 unspecified; D63.8 Anemia in other chronic diseases classified elsewhere; E11.621 Type 2 diabetes mellitus with foot ulcer; L89.629 Pressure ulcer of left heel, unspecified stage
CPT/HCPCS: 36200; 80048; 83735; 85027; 85610; 85730; 86850; 86900; 86901; 99152; 99153; C1760; C1769; C1887; C1894; J0360; J0690; J1920; J2175; J2250; J3010; Q9967

== ENCOUNTER → 2023-05-09 | Outpatient (REF) | payer MEDICARE, MEDICAID ==
[~2023-05-09] MED LIST changes: -HEPARIN 1,000UNITS/ML 10ML VIAL (FOR RADIOLOGY & DIALYSIS ONLY) As Ordered ONE; -ISOVUE-300 61% 100ML VIAL As Ordered ONE; -LABETALOL 100MG/20ML VIAL As Ordered ONE; -LIDOCAINE 1% MDV 20ML VIAL As Ordered ONE; -MEPERIDINE 25 MG/ML 1ML VIAL As Ordered ONE; -MIDAZOLAM INJ 2MG/2ML VIAL As Ordered ONE; -ceFAZolin 2 GM/D5W 50 ML IV BAG As Ordered ONE; -ceFAZolin SOD 2 GM in IV 1 EA IV ONE; -fentaNYL 100 MCG/2 ML INJECTION As Ordered ONE; -hydrALAZINE 20MG/ML 1ML VIAL As Ordered ONE
[2023-05-09 11:28] LABS: HEMATOCRIT 24.2 % (36.0-47.0); HEMOGLOBIN 7.8 g/dl (12.0-15.5); MEAN CORPUSCULAR HEMOGLOBIN 28.2 pg (27.0-33.0); MEAN CORPUSCULAR HGB CONC 32.2 g/dl (32.0-36.5); MEAN CORPUSCULAR VOLUME 87.4 fl (80.0-96.0); PLATELET COUNT, AUTOMATED 194 10^3/uL (150-450); RED BLOOD COUNT 2.77 10^6/uL (4.00-5.40); WHITE BLOOD COUNT 6.1 10^3/uL (4.0-10.0)
[2023-05-09 11:57] LABS: CALCIUM LEVEL 8.3 MG/DL (8.3-10.6); CREATININE FOR GFR 1.85 MG/DL (0.55-1.30); GLOMERULAR FILTRATION RATE 28.4 (>39); POTASSIUM SERUM 4.6 MMOL/L (3.5-5.1)
== END ==
PROVIDERS: ATTEND Internal Medicine
DX: N18.9 Chronic kidney disease, unspecified (principal)

== ENCOUNTER → 2023-05-09 | Outpatient (REF) | payer MEDICARE, MEDICAID | PROVIDERS: ATTEND Physician Assistant | DX: D64.9 Anemia, unspecified (principal); N18.9 Chronic kidney disease, unspecified ==

== ENCOUNTER → 2023-05-11 | Outpatient (REF) | payer MEDICARE, MEDICAID ==
[2023-05-11 10:09] LABS: HEMATOCRIT 24.5 % (36.0-47.0); HEMOGLOBIN 8.1 g/dl (12.0-15.5); MEAN CORPUSCULAR HEMOGLOBIN 28.3 pg (27.0-33.0); MEAN CORPUSCULAR HGB CONC 33.1 g/dl (32.0-36.5); MEAN CORPUSCULAR VOLUME 85.7 fl (80.0-96.0); PLATELET COUNT, AUTOMATED 192 10^3/uL (150-450); RED BLOOD COUNT 2.86 10^6/uL (4.00-5.40); WHITE BLOOD COUNT 7.1 10^3/uL (4.0-10.0)
== END ==
PROVIDERS: ATTEND Physician Assistant
DX: D64.9 Anemia, unspecified (principal)

== ENCOUNTER → 2023-05-13 | Outpatient (REF) | payer MEDICARE, MEDICAID | PROVIDERS: ATTEND Physician Assistant | DX: D64.9 Anemia, unspecified (principal) ==

== ENCOUNTER → 2023-05-15 | Outpatient (REF) | payer MEDICARE, MEDICAID | PROVIDERS: ATTEND Physician Assistant | DX: D64.9 Anemia, unspecified (principal); Z53.8 Procedure and treatment not carried out for other reasons ==

== ENCOUNTER → 2023-05-16 | Outpatient (REF) | payer MEDICARE, MEDICAID | PROVIDERS: ATTEND Physician Assistant | DX: Z53.9 Procedure and treatment not carried out, unspecified reason (principal) ==

== ENCOUNTER → 2023-05-16 | Outpatient (REF) | payer MEDICARE, MEDICAID ==
[2023-05-16 08:04] LABS: HEMATOCRIT 26.2 % (36.0-47.0); HEMOGLOBIN 8.5 g/dl (12.0-15.5); MEAN CORPUSCULAR HEMOGLOBIN 28.1 pg (27.0-33.0); MEAN CORPUSCULAR HGB CONC 32.4 g/dl (32.0-36.5); MEAN CORPUSCULAR VOLUME 86.5 fl (80.0-96.0); PLATELET COUNT, AUTOMATED 200 10^3/uL (150-450); RED BLOOD COUNT 3.03 10^6/uL (4.00-5.40); WHITE BLOOD COUNT 5.6 10^3/uL (4.0-10.0)
== END ==
PROVIDERS: ATTEND Physician Assistant
DX: D64.9 Anemia, unspecified (principal)

== ENCOUNTER → 2023-05-19 | Outpatient (REF) | payer MEDICARE, MEDICAID ==
[2023-05-19 11:16] LABS: HEMATOCRIT 26.7 % (36.0-47.0); HEMOGLOBIN 8.7 g/dl (12.0-15.5); MEAN CORPUSCULAR HGB CONC 32.6 g/dl (32.0-36.5); MEAN CORPUSCULAR VOLUME 85.9 fl (80.0-96.0); PLATELET COUNT, AUTOMATED 219 10^3/uL (150-450); RED BLOOD COUNT 3.11 10^6/uL (4.00-5.40); WHITE BLOOD COUNT 7.4 10^3/uL (4.0-10.0)
== END ==
PROVIDERS: ATTEND Physician Assistant
DX: D64.9 Anemia, unspecified (principal)

== ENCOUNTER → 2023-05-21 | Outpatient (REF) | PROVIDERS: ATTEND Physician Assistant | DX: D64.9 Anemia, unspecified (principal) ==

== ENCOUNTER → 2023-05-23 | Outpatient (REF) | payer MEDICARE, MEDICAID ==
[2023-05-23 10:55] LABS: HEMATOCRIT 27.7 % (36.0-47.0); HEMOGLOBIN 9.1 g/dl (12.0-15.5); MEAN CORPUSCULAR HGB CONC 32.9 g/dl (32.0-36.5); MEAN CORPUSCULAR VOLUME 85.2 fl (80.0-96.0); PLATELET COUNT, AUTOMATED 252 10^3/uL (150-450); RED BLOOD COUNT 3.25 10^6/uL (4.00-5.40); WHITE BLOOD COUNT 8.6 10^3/uL (4.0-10.0)
== END ==
PROVIDERS: ATTEND Physician Assistant
DX: D64.9 Anemia, unspecified (principal)

== ENCOUNTER → 2023-05-30 | Outpatient (REF) | payer MEDICARE, MEDICAID ==
[2023-05-30 11:54] LABS: HEMATOCRIT 27.9 % (36.0-47.0); HEMOGLOBIN 8.9 g/dl (12.0-15.5); MEAN CORPUSCULAR HEMOGLOBIN 27.6 pg (27.0-33.0); MEAN CORPUSCULAR HGB CONC 31.9 g/dl (32.0-36.5); MEAN CORPUSCULAR VOLUME 86.6 fl (80.0-96.0); PLATELET COUNT, AUTOMATED 227 10^3/uL (150-450); RED BLOOD COUNT 3.22 10^6/uL (4.00-5.40); WHITE BLOOD COUNT 6.5 10^3/uL (4.0-10.0)
[2023-05-30 12:14] LABS: CALCIUM LEVEL 8.6 MG/DL (8.3-10.6); CREATININE FOR GFR 1.74 MG/DL (0.55-1.30); GLOMERULAR FILTRATION RATE 30.5 (>39); POTASSIUM SERUM 4.4 MMOL/L (3.5-5.1)
== END ==
PROVIDERS: ATTEND Physician Assistant
DX: E11.9 Type 2 diabetes mellitus without complications (principal)

== ENCOUNTER → 2023-07-04 | Outpatient (REF) | payer MEDICARE, MEDICAID ==
[2023-07-04 12:08] LABS: THYROID STIMULATING HORMONE 4.892 uIU/ML (0.55-4.78)
== END ==
PROVIDERS: ATTEND Internal Medicine
DX: E11.9 Type 2 diabetes mellitus without complications (principal); E78.5 Hyperlipidemia, unspecified

== ENCOUNTER → 2023-08-05 | Outpatient (REF) | payer MEDICARE, MEDICAID ==
[~2023-08-05] MED LIST changes: -ASPI-161 PO; +ASPI-615 PO; -HYDR-3910 PO; -HYDR25TA PO; +HYDR25TA87 PO; +HYDR25TA88 PO; -MIRA1POW3 PO; +MIRA33506 PO
== END ==
PROVIDERS: ATTEND Physician Assistant
DX: E03.9 Hypothyroidism, unspecified (principal)

== ENCOUNTER 2023-08-31 12:07 | Inpatient (IN) | payer MEDICARE, MEDICAID ==
[2023-08-31] VITALS (8 sets, daily range): BP systolic 130–212; BP diastolic 76–98; TEMP 96.8–98.1; O2SAT 98–100
[~2023-08-31] VITALS: Ht 162.6 cm; Wt 80.2 kg
[~2023-08-31 12:07] MED LIST changes: -ACET500T15 PO; -ACET650T15 PO; -BISA10SU27 PR; -CLOP75TA99 PO; -FLEEENE12 PR; -LANTINJ4 SC; -LEVO175T2 PO; -MELA3TAB30 PO; -MILK24002 PO; -ONDA-83 PO; -SENN-186 PO; -VALS1TAB66 PO
[2023-08-31] MEDS ORDERED: ACET500T15 PO (13:41)
[2023-08-31] MEDS ORDERED: FLEEENE12 PR (13:41)
[2023-08-31] MEDS ORDERED: BISA10SU27 PR (13:41)
[2023-08-31] MEDS ORDERED: SENN-186 PO (13:41)
[2023-08-31] MEDS ORDERED: ACET650T15 PO (13:41)
[2023-08-31] MEDS ORDERED: CLOP75TA99 PO (13:41)
[2023-08-31] MEDS ORDERED: GLUC1KIT IM (13:41)
[2023-08-31] MEDS ORDERED: MILK24002 PO (13:41)
[2023-08-31] MEDS ORDERED: ONDA-83 PO (13:41)
[2023-08-31] MEDS ORDERED: LANTINJ4 SC (13:41)
[2023-08-31] MEDS ORDERED: VALS1TAB66 PO (13:41)
[2023-08-31] MEDS ORDERED: MELA3TAB30 PO (13:41)
[2023-08-31] MEDS ORDERED: HOME MED LIST COMPLETE! XX SCH (13:45)
[2023-08-31 13:59] LABS: RSV AMPLIFICATION NEGATIVE (NEGATIVE)
[2023-08-31] MEDS: NS 1,000 ML IV SCH (14:18)
[2023-08-31 15:02] LABS: ALBUMIN 2.7 G/DL (3.2-5.2); BILIRUBIN,DIRECT 0.1 MG/DL (<0.4); BILIRUBIN,TOTAL 0.3 MG/DL (0.3-1.2); TOTAL PROTEIN 5.7 G/DL (5.7-8.2)
[2023-08-31 15:04] LABS: THYROID STIMULATING HORMONE 6.69 uIU/ML (0.55-4.78)
[2023-08-31 15:05] LABS: FREE T4 1.05 NG/DL (0.89-1.76)
[2023-08-31 15:23] LABS: BASO # 0.1 10^3/uL (0.0-0.2); BASO % 0.5 % (0.0-1.0); EOS # 0.7 10^3/uL (0.0-0.5); EOS % 5.9 % (0.0-3.0); LYMPH # 2.5 10^3/uL (1.5-5.0); LYMPH % 20.3 % (24.0-44.0); MEAN CORPUSCULAR HEMOGLOBIN 28.2 pg (27.0-33.0); MEAN CORPUSCULAR HGB CONC 32.5 g/dl (32.0-36.5); MEAN CORPUSCULAR VOLUME 86.6 fl (80.0-96.0); MONO % 8.4 % (2.0-8.0); NEUTROPHILS # 7.5 10^3/uL (1.5-8.5); NEUTROPHILS % 62.3 % (36.0-66.0); PLATELET COUNT, AUTOMATED 301 10^3/uL (150-450); RED BLOOD COUNT 2.38 10^6/uL (4.00-5.40)
[2023-08-31 15:31] LABS: HEMATOCRIT 20.6 % (36.0-47.0)
[2023-08-31 15:36] LABS: HEMOGLOBIN 6.7 g/dl (12.0-15.5)
[2023-08-31] MEDS ORDERED: MOM 30ML SUSPENSION UDC PO PRN (17:30)
[2023-08-31] MEDS: INSULIN LISPRO (NovoLOG) PER UNIT SC SCH (18:00)
[2023-08-31] MEDS ORDERED: GLUCOSE 4GM CHEW TABLET PO PRN (18:25)
[2023-08-31] MEDS ORDERED: DEXTROSE 50% 50ML SYRINGE IV PRN (18:25)
[2023-08-31] MEDS ORDERED: GLUCAGON INJ 1MG VIAL SC PRN (18:25)
[2023-08-31 20:41] LABS: CALCIUM LEVEL 7.6 MG/DL (8.3-10.6); CREATININE FOR GFR 3.83 MG/DL (0.55-1.30); GLOMERULAR FILTRATION RATE 12.3 (>39); MAGNESIUM LEVEL 1.5 MG/DL (1.8-2.4); POTASSIUM SERUM 4.5 MMOL/L (3.5-5.1)
[2023-08-31] MEDS: PANTOPRAZOLE 40MG VIAL IV SCH (21:00)
[2023-08-31] MEDS: bisoproloL fumarate 5 MG TAB PO SCH (21:00)
[2023-08-31 23:39] LABS: HEMATOCRIT 27.8 % (36.0-47.0)
[2023-08-31 23:42] LABS: HEMOGLOBIN 9.6 g/dl (12.0-15.5)
[2023-09-01 06:19] LABS: BASO # 0.1 10^3/uL (0.0-0.2); BASO % 0.8 % (0.0-1.0); EOS # 0.6 10^3/uL (0.0-0.5); EOS % 4.4 % (0.0-3.0); HEMATOCRIT 30.2 % (36.0-47.0); HEMOGLOBIN 9.9 g/dl (12.0-15.5); LYMPH # 2.1 10^3/uL (1.5-5.0); LYMPH % 15.5 % (24.0-44.0); MEAN CORPUSCULAR HEMOGLOBIN 27.9 pg (27.0-33.0); MEAN CORPUSCULAR HGB CONC 32.8 g/dl (32.0-36.5); MEAN CORPUSCULAR VOLUME 85.1 fl (80.0-96.0); MONO # 1.1 10^3/uL (0.0-0.8); NEUTROPHILS # 9.3 10^3/uL (1.5-8.5); NEUTROPHILS % 69.1 % (36.0-66.0); PLATELET COUNT, AUTOMATED 277 10^3/uL (150-450); RED BLOOD COUNT 3.55 10^6/uL (4.00-5.40); WHITE BLOOD COUNT 13.4 10^3/uL (4.0-10.0)
[2023-09-01] MEDS: LEVOTHYROXINE 25MCG TABLET (0.025MG) PO SCH (06:30)
[2023-09-01 06:41] LABS: CALCIUM LEVEL 8.2 MG/DL (8.3-10.6); CREATININE FOR GFR 3.66 MG/DL (0.55-1.30); GLOMERULAR FILTRATION RATE 12.9 (>39); MAGNESIUM LEVEL 1.5 MG/DL (1.8-2.4); POTASSIUM SERUM 4.2 MMOL/L (3.5-5.1)
[2023-09-01] MEDS: LEVOTHYROXINE 150MCG TABLET (0.15MG) PO SCH (06:44)
[2023-09-01] MEDS ORDERED: LEVO175T2 PO (07:16)
[2023-09-01] MEDS: ACETAMINOPHEN TAB 650MG DOSE (2X325MG) PO PRN (07:32)
[2023-09-01] MEDS: MAG SULF 1GM/100ML (MAG RUN) 1 GM in IV 1 EA IV SCH (07:32)
[2023-09-01] MEDS: DULoxetine 20MG CAP (CYMBALTA) PO SCH (08:31)
[2023-09-01 12:09] VITALS: BP 178/108; TEMP 97.6; O2SAT 98
[2023-09-01 13:25] VITALS: BP 218/102
[2023-09-01] MEDS ORDERED: hydrALAZINE 20MG/ML 1ML VIAL IV ONE (13:30)
[2023-09-01] MEDS: hydrALAZINE 20MG/ML 1ML VIAL IV STA (13:41)
[2023-09-01 17:21] VITALS: BP 160/90; TEMP 97.9; O2SAT 100
[2023-09-01] MEDS: BISACODYL 5MG TAB PO ONE (17:40)
[2023-09-01] MEDS: GOLYTELY SOLN 4000 ML BTL PO ONE (17:50)
[2023-09-01 19:23] VITALS: BP 154/80; TEMP 97.5; O2SAT 99
[2023-09-01] MEDS: **hydrALAZINE HCL** 25 MG TAB PO SCH (20:13)
[2023-09-01 23:06] VITALS: BP 172/90; TEMP 97.5; O2SAT 99
[2023-09-02 04:18] VITALS: BP 180/92; TEMP 97.4; O2SAT 98
[2023-09-02 05:47] LABS: BASO # 0.1 10^3/uL (0.0-0.2); BASO % 0.3 % (0.0-1.0); EOS # 0.2 10^3/uL (0.0-0.5); EOS % 1.2 % (0.0-3.0); HEMATOCRIT 30.1 % (36.0-47.0); HEMOGLOBIN 10.3 g/dl (12.0-15.5); LYMPH # 1.6 10^3/uL (1.5-5.0); LYMPH % 9.4 % (24.0-44.0); MEAN CORPUSCULAR HGB CONC 34.2 g/dl (32.0-36.5); MEAN CORPUSCULAR VOLUME 84.8 fl (80.0-96.0); MONO # 0.9 10^3/uL (0.0-0.8); NEUTROPHILS # 13.9 10^3/uL (1.5-8.5); NEUTROPHILS % 82.2 % (36.0-66.0); PLATELET COUNT, AUTOMATED 270 10^3/uL (150-450); RED BLOOD COUNT 3.55 10^6/uL (4.00-5.40); WHITE BLOOD COUNT 16.9 10^3/uL (4.0-10.0)
[2023-09-02] MEDS: hydrALAZINE 20MG/ML 1ML VIAL IV ONE (05:51)
[2023-09-02 06:02] LABS: CALCIUM LEVEL 8.5 MG/DL (8.3-10.6); CREATININE FOR GFR 3.48 MG/DL (0.55-1.30); GLOMERULAR FILTRATION RATE 13.7 (>39); MAGNESIUM LEVEL 1.8 MG/DL (1.8-2.4); POTASSIUM SERUM 3.5 MMOL/L (3.5-5.1)
[2023-09-02 08:00] VITALS: BP 158/62; TEMP 97.5; O2SAT 98
[2023-09-02 10:08] VITALS: BP 148/82
[2023-09-02] MEDS ORDERED: propofoL 200 MG/20 ML VIAL As Ordered ONE (11:12)
[2023-09-02] MEDS ORDERED: fentaNYL 100 MCG/2 ML INJECTION As Ordered ONE (11:12)
[2023-09-02] MEDS ORDERED: LIDOCAINE 2% 100MG/5ML SDV (FOR ANES.) As Ordered ONE (11:12)
[2023-09-02] MEDS ORDERED: ONDANSETRON 4MG 2ML VIAL As Ordered ONE (11:12)
[2023-09-02] MEDS ORDERED: PHENYLephrine 500MCG 5ML (100MCG/ML) SYRINGE As Ordered ONE (11:26)
[2023-09-02] MEDS ORDERED: ONDANSETRON 4MG 2ML VIAL IV PRN (12:05)
[2023-09-02] MEDS ORDERED: LR 1,000 ML IV SCH (12:05)
[2023-09-02 12:48] VITALS: BP 130/60; TEMP 97.6; O2SAT 96
[2023-09-02 16:19] VITALS: BP 128/59; TEMP 97.2; O2SAT 96
[2023-09-02] MEDS: INSULIN LISPRO (NovoLOG) PER UNIT SC SCH ×2 (18:03→21:00)
[2023-09-02 19:34] VITALS: BP 136/62; TEMP 97.8; O2SAT 97
[2023-09-03] VITALS (8 sets, daily range): BP systolic 115–159; BP diastolic 60–72; TEMP 96.8–97.9; O2SAT 96–99
[2023-09-03 05:48] LABS: BASO # 0.1 10^3/uL (0.0-0.2); BASO % 0.5 % (0.0-1.0); EOS # 0.7 10^3/uL (0.0-0.5); EOS % 4.7 % (0.0-3.0); HEMATOCRIT 27.9 % (36.0-47.0); HEMOGLOBIN 9.3 g/dl (12.0-15.5); LYMPH # 2.3 10^3/uL (1.5-5.0); LYMPH % 14.9 % (24.0-44.0); MEAN CORPUSCULAR HEMOGLOBIN 28.5 pg (27.0-33.0); MEAN CORPUSCULAR HGB CONC 33.3 g/dl (32.0-36.5); MEAN CORPUSCULAR VOLUME 85.6 fl (80.0-96.0); MONO # 1.5 10^3/uL (0.0-0.8); MONO % 9.7 % (2.0-8.0); NEUTROPHILS # 10.6 10^3/uL (1.5-8.5); NEUTROPHILS % 69.2 % (36.0-66.0); PLATELET COUNT, AUTOMATED 264 10^3/uL (150-450); RED BLOOD COUNT 3.26 10^6/uL (4.00-5.40); WHITE BLOOD COUNT 15.3 10^3/uL (4.0-10.0)
[2023-09-03 06:17] LABS: CALCIUM LEVEL 8.3 MG/DL (8.3-10.6); CREATININE FOR GFR 3.71 MG/DL (0.55-1.30); GLOMERULAR FILTRATION RATE 12.7 (>39); MAGNESIUM LEVEL 1.7 MG/DL (1.8-2.4); POTASSIUM SERUM 3.7 MMOL/L (3.5-5.1)
[2023-09-03] MEDS: MAG SULF 1GM/100ML (MAG RUN) 1 GM in IV 1 EA IV ONE (07:00)
[2023-09-03 08:04] LABS: PERCENT SATURATION 21.6 % (13.2-45.0)
[2023-09-03] MEDS: PERCOCET 5MG/325MG TAB PO PRN (08:55)
[2023-09-03] MEDS: FERRIC CARBOXYMALTOSE INJ 750 MG, VIAL MATE ADAPTER 1 EACH in NS 250 ML IV ONE (11:50)
[2023-09-03] MEDS: MAGNESIUM OXIDE 400MG TAB (MAG-OX) PO SCH (17:35)
[2023-09-04 03:43] VITALS: BP 116/58; TEMP 96.8; O2SAT 92
[2023-09-04 05:57] LABS: BASO # 0.1 10^3/uL (0.0-0.2); BASO % 0.6 % (0.0-1.0); EOS # 0.5 10^3/uL (0.0-0.5); EOS % 5.1 % (0.0-3.0); HEMATOCRIT 26.7 % (36.0-47.0); HEMOGLOBIN 8.7 g/dl (12.0-15.5); LYMPH # 2.2 10^3/uL (1.5-5.0); LYMPH % 20.7 % (24.0-44.0); MEAN CORPUSCULAR HEMOGLOBIN 28.6 pg (27.0-33.0); MEAN CORPUSCULAR HGB CONC 32.6 g/dl (32.0-36.5); MEAN CORPUSCULAR VOLUME 87.8 fl (80.0-96.0); MONO # 1.1 10^3/uL (0.0-0.8); MONO % 10.9 % (2.0-8.0); NEUTROPHILS # 6.5 10^3/uL (1.5-8.5); NEUTROPHILS % 61.6 % (36.0-66.0); PLATELET COUNT, AUTOMATED 235 10^3/uL (150-450); RED BLOOD COUNT 3.04 10^6/uL (4.00-5.40); WHITE BLOOD COUNT 10.5 10^3/uL (4.0-10.0)
[2023-09-04 06:22] LABS: CALCIUM LEVEL 8.7 MG/DL (8.3-10.6); CREATININE FOR GFR 4.37 MG/DL (0.55-1.30); GLOMERULAR FILTRATION RATE 10.5 (>39); MAGNESIUM LEVEL 2.2 MG/DL (1.8-2.4); POTASSIUM SERUM 3.8 MMOL/L (3.5-5.1)
[2023-09-04 07:52] VITALS: BP 156/72; TEMP 97.9; O2SAT 96
[2023-09-04] MEDS: FERROUS SULFATE 325MG TAB PO SCH (08:27)
[2023-09-04 11:47] VITALS: BP 141/62; O2SAT 96
[2023-09-04] MEDS: LR 1,000 ML IV SCH (12:47)
[2023-09-04 15:27] VITALS: BP 133/62; TEMP 97; O2SAT 96
[2023-09-04 20:04] VITALS: BP 158/84; TEMP 98; O2SAT 98
[2023-09-04] MEDS: **hydrALAZINE** 10 MG TAB PO SCH (20:24)
[2023-09-04 23:46] VITALS: BP 152/67; TEMP 97.9; O2SAT 93
[2023-09-05] MEDS: BACTRIM 80MG/400MG TAB PO SCH (00:12)
[2023-09-05 03:49] VITALS: BP 145/65; TEMP 97.8; O2SAT 95
[2023-09-05 05:36] LABS: BASO # 0.1 10^3/uL (0.0-0.2); BASO % 0.6 % (0.0-1.0); EOS # 0.5 10^3/uL (0.0-0.5); EOS % 4.4 % (0.0-3.0); HEMATOCRIT 25.5 % (36.0-47.0); HEMOGLOBIN 8.1 g/dl (12.0-15.5); LYMPH # 1.9 10^3/uL (1.5-5.0); LYMPH % 16.9 % (24.0-44.0); MEAN CORPUSCULAR HEMOGLOBIN 28.2 pg (27.0-33.0); MEAN CORPUSCULAR HGB CONC 31.8 g/dl (32.0-36.5); MEAN CORPUSCULAR VOLUME 88.9 fl (80.0-96.0); MONO # 1.1 10^3/uL (0.0-0.8); MONO % 9.9 % (2.0-8.0); NEUTROPHILS # 7.6 10^3/uL (1.5-8.5); NEUTROPHILS % 67.3 % (36.0-66.0); PLATELET COUNT, AUTOMATED 221 10^3/uL (150-450); RED BLOOD COUNT 2.87 10^6/uL (4.00-5.40); WHITE BLOOD COUNT 11.3 10^3/uL (4.0-10.0)
[2023-09-05 05:59] LABS: CALCIUM LEVEL 7.7 MG/DL (8.3-10.6); CREATININE FOR GFR 4.26 MG/DL (0.55-1.30); GLOMERULAR FILTRATION RATE 10.9 (>39); POTASSIUM SERUM 4.1 MMOL/L (3.5-5.1)
[2023-09-05 07:28] VITALS: BP 136/70; TEMP 97.7; O2SAT 95
[2023-09-05] MEDS: DULoxetine 30MG CAPSULE (CYMBALTA) PO SCH (08:28)
[2023-09-05] MEDS: PANTOPRAZOLE 40MG TAB (PROTONIX) PO SCH (08:29)
[2023-09-05] MEDS ORDERED: GOLYTELY SOLN 4000 ML BTL PO ONE (11:00)
[2023-09-05] MEDS: LevoFLOXacin 250 MG TABLET PO SCH (11:39)
[2023-09-05 16:01] VITALS: BP 137/62; TEMP 98; O2SAT 97
[2023-09-05 19:11] VITALS: BP 154/67; TEMP 98.3; O2SAT 96
[2023-09-05 19:58] VITALS: BP 168/73
[2023-09-06 03:33] VITALS: BP 148/63; TEMP 98; O2SAT 100
[2023-09-06] MEDS: diphenhydrAMINE 25MG CAP PO STA (03:49)
[2023-09-06 05:39] LABS: BASO # 0.1 10^3/uL (0.0-0.2); BASO % 0.6 % (0.0-1.0); EOS # 0.5 10^3/uL (0.0-0.5); EOS % 3.9 % (0.0-3.0); HEMATOCRIT 26.2 % (36.0-47.0); HEMOGLOBIN 8.7 g/dl (12.0-15.5); LYMPH # 1.7 10^3/uL (1.5-5.0); LYMPH % 12.4 % (24.0-44.0); MEAN CORPUSCULAR HEMOGLOBIN 29.1 pg (27.0-33.0); MEAN CORPUSCULAR HGB CONC 33.2 g/dl (32.0-36.5); MEAN CORPUSCULAR VOLUME 87.6 fl (80.0-96.0); MONO # 1.3 10^3/uL (0.0-0.8); MONO % 9.5 % (2.0-8.0); NEUTROPHILS # 9.6 10^3/uL (1.5-8.5); NEUTROPHILS % 71.8 % (36.0-66.0); PLATELET COUNT, AUTOMATED 254 10^3/uL (150-450); RED BLOOD COUNT 2.99 10^6/uL (4.00-5.40); WHITE BLOOD COUNT 13.3 10^3/uL (4.0-10.0)
[2023-09-06 06:01] LABS: CREATININE FOR GFR 3.91 MG/DL (0.55-1.30); MAGNESIUM LEVEL 1.9 MG/DL (1.8-2.4); POTASSIUM SERUM 4.5 MMOL/L (3.5-5.1)
[2023-09-06 07:59] VITALS: BP 136/62; TEMP 97.4; O2SAT 97
[2023-09-06 16:40] VITALS: BP 148/65; TEMP 98.4; O2SAT 95
[2023-09-06 20:14] VITALS: BP 140/99; TEMP 99.2; O2SAT 96
[2023-09-07 03:12] VITALS: BP 128/66; TEMP 99.3; O2SAT 97
[2023-09-07 05:27] LABS: BASO # 0.1 10^3/uL (0.0-0.2); BASO % 0.3 % (0.0-1.0); EOS # 0.1 10^3/uL (0.0-0.5); EOS % 0.7 % (0.0-3.0); HEMATOCRIT 26.7 % (36.0-47.0); HEMOGLOBIN 8.7 g/dl (12.0-15.5); LYMPH # 1.7 10^3/uL (1.5-5.0); LYMPH % 8.7 % (24.0-44.0); MEAN CORPUSCULAR HEMOGLOBIN 28.4 pg (27.0-33.0); MEAN CORPUSCULAR HGB CONC 32.6 g/dl (32.0-36.5); MEAN CORPUSCULAR VOLUME 87.3 fl (80.0-96.0); MONO # 2.4 10^3/uL (0.0-0.8); MONO % 12.5 % (2.0-8.0); NEUTROPHILS # 14.9 10^3/uL (1.5-8.5); NEUTROPHILS % 76.6 % (36.0-66.0); PLATELET COUNT, AUTOMATED 254 10^3/uL (150-450); RED BLOOD COUNT 3.06 10^6/uL (4.00-5.40); WHITE BLOOD COUNT 19.4 10^3/uL (4.0-10.0)
[2023-09-07 05:53] LABS: CALCIUM LEVEL 8.5 MG/DL (8.3-10.6); CREATININE FOR GFR 4.23 MG/DL (0.55-1.30); POTASSIUM SERUM 4.8 MMOL/L (3.5-5.1)
[2023-09-07 08:07] VITALS: BP 135/61; TEMP 98.5; O2SAT 93
[2023-09-07 09:37] LABS: COMPLEMENT C4 26.2 MG/DL (12-36); RHEUMATOID FACTOR QUANT 15.3 IU/ML (<14)
[2023-09-07 11:10] LABS: APPEARANCE, URINE CLOUDY (CLEAR); BACTERIA, URINE AUTO 1+ (NEGATIVE); BILIRUBIN, URINE AUTO NEGATIVE (NEGATIVE); BLOOD, URINE BLOOD 1+ (NEGATIVE); COLOR, URINE YELLOW (YELLOW); GLUCOSE, URINE (UA) AUTO 1+ mg/dL (NEGATIVE); KETONE, URINE AUTO NEGATIVE (NEGATIVE); LEUKOCYTE ESTERASE, URINE AUTO NEGATIVE (NEGATIVE); NITRITE, URINE AUTO NEGATIVE (NEGATIVE); PROTEIN, URINE AUTO 3+ mg/dL (NEGATIVE); RBC, URINE AUTO 3 /HPF (0-3); SPECIFIC GRAVITY URINE AUTO 1.004 (1.002-1.035); SQUAMOUS EPITHELIAL CELL UR AU 2 /HPF (0-6); UROBILINOGEN, URINE AUTO 0.2 mg/dL (0.0-2.0); WBC, URINE AUTO 1 /HPF (0-3)
[2023-09-07 11:46] LABS: CREATININE,RANDOM URINE 33.7 MG/DL
[2023-09-07 11:47] LABS: TOTAL PROTEIN,RANDOM URINE 239.8 MG/DL (0.0-14.0)
[2023-09-07 12:02] VITALS: BP 122/58; TEMP 97.4; O2SAT 99
[2023-09-07 15:17] VITALS: BP 157/64; TEMP 98.2; O2SAT 97
[2023-09-07 20:30] VITALS: BP 159/86; TEMP 97.9; O2SAT 100
[2023-09-07] MEDS: ROSUVASTATIN 10 MG TAB (CRESTOR) PO SCH (21:32)
[2023-09-08 05:47] VITALS: BP 158/86; TEMP 98.2; O2SAT 96
[2023-09-08] MEDS ORDERED: LevoFLOXacin 250 MG TABLET PO SCH (06:00)
[2023-09-08 07:57] LABS: BASO # 0.1 10^3/uL (0.0-0.2); BASO % 0.4 % (0.0-1.0); EOS # 0.4 10^3/uL (0.0-0.5); EOS % 2.3 % (0.0-3.0); HEMATOCRIT 27.1 % (36.0-47.0); HEMOGLOBIN 8.6 g/dl (12.0-15.5); LYMPH # 1.4 10^3/uL (1.5-5.0); LYMPH % 8.7 % (24.0-44.0); MEAN CORPUSCULAR HEMOGLOBIN 28.5 pg (27.0-33.0); MEAN CORPUSCULAR HGB CONC 31.7 g/dl (32.0-36.5); MEAN CORPUSCULAR VOLUME 89.7 fl (80.0-96.0); MONO # 2.3 10^3/uL (0.0-0.8); MONO % 14.3 % (2.0-8.0); NEUTROPHILS # 11.4 10^3/uL (1.5-8.5); NEUTROPHILS % 72.2 % (36.0-66.0); PLATELET COUNT, AUTOMATED 272 10^3/uL (150-450); RED BLOOD COUNT 3.02 10^6/uL (4.00-5.40); WHITE BLOOD COUNT 15.8 10^3/uL (4.0-10.0)
[2023-09-08] MEDS: MIRALAX *UNIT DOSE* 17GM PACKET PO SCH (07:58)
[2023-09-08] MEDS: METAMUCIL (PSYLLIUM) PACKET PO SCH (07:58)
[2023-09-08 08:26] LABS: ALBUMIN 2.2 G/DL (3.2-5.2); CALCIUM LEVEL 8.8 MG/DL (8.3-10.6); CREATININE FOR GFR 4.69 MG/DL (0.55-1.30); GLOMERULAR FILTRATION RATE 9.7 (>39); PHOSPHORUS LEVEL 4.9 MG/DL (2.4-5.1); POTASSIUM SERUM 5.2 MMOL/L (3.5-5.1)
[2023-09-08] MEDS: NS 1,000 ML IV SCH (10:06)
[2023-09-08] MEDS: SENNA 8.6 MG TAB (SENOKOT) PO SCH (12:00)
[2023-09-08] MEDS: PATIROMER SORBITEX CALCIUM 8.4 GM POWDER PACKET (VELTASSA) PO SCH (12:31)
[2023-09-08 14:00] VITALS: BP 150/69; TEMP 97.7; O2SAT 97
[2023-09-08 15:26] LABS: TOTAL PROTEIN 24 HOUR URINE 2626.9 MG/24HR (50-80); URINE TOTAL PROTEIN 618.1 MG/DL (0-14)
[2023-09-08 19:38] VITALS: BP 119/63; TEMP 98.1
[2023-09-09 05:17] VITALS: BP 113/63; TEMP 97.7; O2SAT 94
[2023-09-09] MEDS: LevoFLOXacin 250 MG TABLET PO SCH (06:21)
[2023-09-09 08:00] LABS: BASO # 0.1 10^3/uL (0.0-0.2); BASO % 0.6 % (0.0-1.0); EOS # 0.6 10^3/uL (0.0-0.5); EOS % 4.4 % (0.0-3.0); HEMATOCRIT 27.5 % (36.0-47.0); HEMOGLOBIN 8.6 g/dl (12.0-15.5); LYMPH # 1.3 10^3/uL (1.5-5.0); MEAN CORPUSCULAR HEMOGLOBIN 28.2 pg (27.0-33.0); MEAN CORPUSCULAR HGB CONC 31.3 g/dl (32.0-36.5); MEAN CORPUSCULAR VOLUME 90.2 fl (80.0-96.0); MONO # 1.7 10^3/uL (0.0-0.8); MONO % 13.1 % (2.0-8.0); NEUTROPHILS # 8.8 10^3/uL (1.5-8.5); NEUTROPHILS % 68.9 % (36.0-66.0); PLATELET COUNT, AUTOMATED 284 10^3/uL (150-450); RED BLOOD COUNT 3.05 10^6/uL (4.00-5.40); WHITE BLOOD COUNT 12.9 10^3/uL (4.0-10.0)
[2023-09-09 08:20] LABS: CALCIUM LEVEL 8.2 MG/DL (8.3-10.6); CREATININE FOR GFR 4.79 MG/DL (0.55-1.30); GLOMERULAR FILTRATION RATE 9.5 (>39); PHOSPHORUS LEVEL 5.2 MG/DL (2.4-5.1); POTASSIUM SERUM 5.2 MMOL/L (3.5-5.1)
[2023-09-09 14:00] VITALS: BP 158/70; TEMP 97.7; O2SAT 97
[2023-09-09 15:11] LABS: INR 1.31; PARTIAL THROMBOPLASTIN TIME 34.2 SECONDS (24.8-34.2); PROTHROMBIN TIME 15.9 SECONDS (12.5-14.5)
[2023-09-09 19:07] LABS: COMPLEMENT TOTAL (CH50) > 60 U/mL (>41)
[2023-09-09] MEDS: HEPARIN SOD (PORCINE) 5000UNITS/ML 1ML VIAL/SYRINGE SQ SCH (20:57)
[2023-09-09 21:10] VITALS: BP 159/72; TEMP 97.6; O2SAT 91
[2023-09-10 06:00] VITALS: BP 144/70; TEMP 97.9; O2SAT 94
[2023-09-10 06:28] LABS: BASO # 0.1 10^3/uL (0.0-0.2); EOS # 0.5 10^3/uL (0.0-0.5); EOS % 4.9 % (0.0-3.0); HEMATOCRIT 26.4 % (36.0-47.0); HEMOGLOBIN 8.4 g/dl (12.0-15.5); LYMPH # 1.2 10^3/uL (1.5-5.0); LYMPH % 10.7 % (24.0-44.0); MEAN CORPUSCULAR HEMOGLOBIN 28.6 pg (27.0-33.0); MEAN CORPUSCULAR HGB CONC 31.8 g/dl (32.0-36.5); MEAN CORPUSCULAR VOLUME 89.8 fl (80.0-96.0); MONO # 1.3 10^3/uL (0.0-0.8); MONO % 12.4 % (2.0-8.0); NEUTROPHILS # 7.2 10^3/uL (1.5-8.5); NEUTROPHILS % 67.3 % (36.0-66.0); PLATELET COUNT, AUTOMATED 310 10^3/uL (150-450); RED BLOOD COUNT 2.94 10^6/uL (4.00-5.40); WHITE BLOOD COUNT 10.8 10^3/uL (4.0-10.0)
[2023-09-10 06:51] LABS: ALBUMIN 2.1 G/DL (3.2-5.2); BLOOD UREA NITROGEN 70 MG/DL (9-23); CALCIUM LEVEL 8.5 MG/DL (8.3-10.6); CARBON DIOXIDE LEVEL 22 MMOL/L (20-31); CHLORIDE LEVEL 104 MMOL/L (98-107); CREATININE FOR GFR 4.81 MG/DL (0.55-1.30); GLOMERULAR FILTRATION RATE 9.4 (>39); GLUCOSE, FASTING 166 MG/DL (74-106); POTASSIUM SERUM 5.2 MMOL/L (3.5-5.1); SODIUM LEVEL 133 MMOL/L (136-145)
[2023-09-10] MEDS ORDERED: HEPARIN 1,000UNITS/ML 10ML VIAL (FOR RADIOLOGY & DIALYSIS ONLY) XX SCH (08:15)
[2023-09-10] MEDS ORDERED: SODIUM CHLORIDE 0.9% 1000ML IV PRN (08:15)
[2023-09-10] MEDS ORDERED: HEPARIN 1,000UNITS/ML 10ML VIAL (FOR RADIOLOGY & DIALYSIS ONLY) IV PRN (08:15)
[2023-09-10 08:43] LABS: HEPATITIS B SURFACE ANTIBODY NEGATIVE (POSITIVE)
[2023-09-10 09:16] LABS: HEPATITIS B CORE ANTIBODY IGM NEGATIVE (NEGATIVE); HEPATITIS C VIRUS ABY INDEX < 0.02 INDEX (<0.8)
[2023-09-10] MEDS: ONDANSETRON 4MG 2ML VIAL IV PRN (11:15)
[2023-09-10 17:27] VITALS: BP 147/67; TEMP 97.5; O2SAT 94
[2023-09-10 20:58] VITALS: BP 147/66; TEMP 97.5; O2SAT 92
[2023-09-11 05:37] VITALS: BP 129/60; TEMP 97.7; O2SAT 92
[2023-09-11 06:45] LABS: BASO # 0.1 10^3/uL (0.0-0.2); EOS # 0.4 10^3/uL (0.0-0.5); EOS % 4.8 % (0.0-3.0); LYMPH # 1.1 10^3/uL (1.5-5.0); LYMPH % 13.6 % (24.0-44.0); MEAN CORPUSCULAR HEMOGLOBIN 28.6 pg (27.0-33.0); MEAN CORPUSCULAR VOLUME 89.3 fl (80.0-96.0); MONO # 1.2 10^3/uL (0.0-0.8); MONO % 14.3 % (2.0-8.0); NEUTROPHILS # 5.2 10^3/uL (1.5-8.5); PLATELET COUNT, AUTOMATED 260 10^3/uL (150-450); WHITE BLOOD COUNT 8.2 10^3/uL (4.0-10.0)
[2023-09-11 07:11] LABS: ALBUMIN 2.2 G/DL (3.2-5.2); CALCIUM LEVEL 8.3 MG/DL (8.3-10.6); CREATININE FOR GFR 3.95 MG/DL (0.55-1.30); GLOMERULAR FILTRATION RATE 11.9 (>39); PHOSPHORUS LEVEL 4.6 MG/DL (2.4-5.1); POTASSIUM SERUM 4.6 MMOL/L (3.5-5.1)
[2023-09-11] MEDS: COMBIVENT RESPIMAT 100-20MCG INHALER 4GM INH SCH (13:21)
[2023-09-11 14:19] VITALS: BP 129/59; TEMP 97.5; O2SAT 91
[2023-09-11 20:00] VITALS: BP 131/61; TEMP 97.7; O2SAT 93
[2023-09-12 05:38] VITALS: BP 131/59; TEMP 97.5; O2SAT 96
[2023-09-12] MEDS ORDERED: HEPARIN 1,000UNITS/ML 10ML VIAL (FOR RADIOLOGY & DIALYSIS ONLY) IV PRN (06:55)
[2023-09-12] MEDS ORDERED: HEPARIN 1,000UNITS/ML 10ML VIAL (FOR RADIOLOGY & DIALYSIS ONLY) XX SCH (06:55)
[2023-09-12] MEDS ORDERED: SODIUM CHLORIDE 0.9% 1000ML IV PRN (06:55)
[2023-09-12 07:47] LABS: HEMATOCRIT 26.7 % (36.0-47.0); HEMOGLOBIN 8.4 g/dl (12.0-15.5); MEAN CORPUSCULAR HEMOGLOBIN 28.7 pg (27.0-33.0); MEAN CORPUSCULAR HGB CONC 31.5 g/dl (32.0-36.5); MEAN CORPUSCULAR VOLUME 91.1 fl (80.0-96.0); PLATELET COUNT, AUTOMATED 286 10^3/uL (150-450); RED BLOOD COUNT 2.93 10^6/uL (4.00-5.40); WHITE BLOOD COUNT 9.7 10^3/uL (4.0-10.0)
[2023-09-12 08:17] LABS: ALBUMIN 2.3 G/DL (3.2-5.2); CALCIUM LEVEL 8.5 MG/DL (8.3-10.6); CREATININE FOR GFR 4.35 MG/DL (0.55-1.30); GLOMERULAR FILTRATION RATE 10.6 (>39); PHOSPHORUS LEVEL 4.9 MG/DL (2.4-5.1); POTASSIUM SERUM 5.2 MMOL/L (3.5-5.1)
[2023-09-12 08:22] LABS: ANISOCYTOSIS 1+; ATYPICAL LYMPH 2 % (0-5); EOSINOPHILS 5 % (0-3); LYMPHOCYTES 14 % (16-44); MONOCYTES 12 % (0-5); NEUTROPHILS 67 % (28-66); PLATELET ESTIMATE NORMAL (NORMAL)
[2023-09-12] MEDS: DARBEPOETIN 100MCG/0.5ML *DIALYSIS* SYRINGE IV SCH (10:42)
[2023-09-12] MEDS ORDERED: HEPARIN 1,000UNITS/ML 10ML VIAL (FOR RADIOLOGY & DIALYSIS ONLY) As Ordered ONE (13:43)
[2023-09-12] MEDS ORDERED: VANCOMYCIN 1000MG/20ML VIAL As Ordered ONE (13:54)
[2023-09-12] MEDS: VANCOMYCIN HCL 1,000 MG, VIAL MATE ADAPTER 1 EACH in D5W 250 ML IV ONE (13:58)
[2023-09-12] MEDS ORDERED: LIDOCAINE 1% MDV 20ML VIAL As Ordered ONE (14:32)
[2023-09-12 15:30] VITALS: BP 131/72; TEMP 97.7; O2SAT 100
[2023-09-12 19:47] VITALS: BP 133/54; TEMP 98.1; O2SAT 94
[2023-09-13] VITALS (8 sets, daily range): BP systolic 116–161; BP diastolic 56–71; TEMP 97.5–98.2; O2SAT 92–96
[2023-09-13 07:33] LABS: BASO # 0.1 10^3/uL (0.0-0.2); BASO % 1.1 % (0.0-1.0); EOS # 0.3 10^3/uL (0.0-0.5); EOS % 2.7 % (0.0-3.0); HEMATOCRIT 26.2 % (36.0-47.0); HEMOGLOBIN 8.3 g/dl (12.0-15.5); LYMPH # 1.4 10^3/uL (1.5-5.0); LYMPH % 12.1 % (24.0-44.0); MEAN CORPUSCULAR HEMOGLOBIN 28.5 pg (27.0-33.0); MEAN CORPUSCULAR HGB CONC 31.7 g/dl (32.0-36.5); MONO # 1.3 10^3/uL (0.0-0.8); MONO % 11.3 % (2.0-8.0); NEUTROPHILS # 7.6 10^3/uL (1.5-8.5); NEUTROPHILS % 66.4 % (36.0-66.0); PLATELET COUNT, AUTOMATED 233 10^3/uL (150-450); RED BLOOD COUNT 2.91 10^6/uL (4.00-5.40); WHITE BLOOD COUNT 11.4 10^3/uL (4.0-10.0)
[2023-09-13] MEDS ORDERED: SODIUM CHLORIDE 0.9% 1000ML IV PRN (07:45)
[2023-09-13] MEDS ORDERED: HEPARIN 1,000UNITS/ML 10ML VIAL (FOR RADIOLOGY & DIALYSIS ONLY) XX SCH (07:45)
[2023-09-13] MEDS ORDERED: HEPARIN 1,000UNITS/ML 10ML VIAL (FOR RADIOLOGY & DIALYSIS ONLY) IV PRN (07:45)
[2023-09-13 07:58] LABS: ALBUMIN 2.2 G/DL (3.2-5.2); CALCIUM LEVEL 8.2 MG/DL (8.3-10.6); CREATININE FOR GFR 3.31 MG/DL (0.55-1.30); GLOMERULAR FILTRATION RATE 14.5 (>39); PHOSPHORUS LEVEL 3.8 MG/DL (2.4-5.1); POTASSIUM SERUM 4.5 MMOL/L (3.5-5.1)
[2023-09-13] MEDS: NS 1,000 ML IV SCH (12:21)
[2023-09-13] MEDS ORDERED: MIDAZOLAM INJ 2MG/2ML VIAL As Ordered ONE (13:38)
[2023-09-14 06:00] VITALS: BP 136/59; TEMP 97.5; O2SAT 94
[2023-09-14 08:00] LABS: CALCIUM LEVEL 8.5 MG/DL (8.3-10.6); CREATININE FOR GFR 2.98 MG/DL (0.55-1.30); GLOMERULAR FILTRATION RATE 16.4 (>39); POTASSIUM SERUM 4.1 MMOL/L (3.5-5.1)
[2023-09-14 14:00] VITALS: BP 128/54; TEMP 98.4; O2SAT 93
[2023-09-14 20:32] VITALS: BP 126/54; TEMP 98.1; O2SAT 92
[2023-09-15 06:09] VITALS: BP 127/56; TEMP 98.4; O2SAT 94
[2023-09-15] MEDS ORDERED: SODIUM CHLORIDE 0.9% 1000ML IV PRN (06:40)
[2023-09-15] MEDS ORDERED: HEPARIN 1,000UNITS/ML 10ML VIAL (FOR RADIOLOGY & DIALYSIS ONLY) IV PRN (06:40)
[2023-09-15] MEDS ORDERED: HEPARIN 1,000UNITS/ML 10ML VIAL (FOR RADIOLOGY & DIALYSIS ONLY) XX SCH (06:40)
[2023-09-15 08:13] LABS: CALCIUM LEVEL 8.2 MG/DL (8.3-10.6); CREATININE FOR GFR 4.13 MG/DL (0.55-1.30); GLOMERULAR FILTRATION RATE 11.3 (>39); POTASSIUM SERUM 4.4 MMOL/L (3.5-5.1)
[2023-09-15 09:05] LABS: HEMATOCRIT 27.4 % (36.0-47.0); HEMOGLOBIN 8.6 g/dl (12.0-15.5); MEAN CORPUSCULAR HEMOGLOBIN 29.2 pg (27.0-33.0); MEAN CORPUSCULAR HGB CONC 31.4 g/dl (32.0-36.5); MEAN CORPUSCULAR VOLUME 92.9 fl (80.0-96.0); PLATELET COUNT, AUTOMATED 255 10^3/uL (150-450); RED BLOOD COUNT 2.95 10^6/uL (4.00-5.40)
[2023-09-15 09:45] LABS: ATYPICAL LYMPH 2 % (0-5); BASOPHILS 1 % (0-1); EOSINOPHILS 2 % (0-3); LYMPHOCYTES 14 % (16-44); MONOCYTES 12 % (0-5); NEUTROPHILS 69 % (28-66); PLATELET ESTIMATE NORMAL (NORMAL)
[2023-09-15 09:46] LABS: ANISOCYTOSIS 1+; POLYCHROMASIA 1+
[2023-09-15 19:42] VITALS: BP 98/50; TEMP 98.4; O2SAT 94
[2023-09-16 05:47] VITALS: BP 104/51; TEMP 97.9; O2SAT 95
[2023-09-16 06:53] LABS: CALCIUM LEVEL 8.4 MG/DL (8.3-10.6); CREATININE FOR GFR 3.47 MG/DL (0.55-1.30); GLOMERULAR FILTRATION RATE 13.8 (>39); POTASSIUM SERUM 4.5 MMOL/L (3.5-5.1)
[2023-09-16 11:36] LABS: C REACTIVE PROTEIN QUANTITATIV 10.8 MG/DL (<1.0)
[2023-09-16 11:49] LABS: PROCALCITONIN 0.39 ng/ml
[2023-09-16] MEDS: MAALOX 30 ML SUSP *UDC PO PRN (13:35)
[2023-09-16 14:00] VITALS: BP 100/81; TEMP 97.7; O2SAT 96
[2023-09-16 20:33] VITALS: BP 98/53; TEMP 98.1; O2SAT 94
[2023-09-16 21:12] VITALS: O2SAT 94
[2023-09-17] VITALS (7 sets, daily range): BP systolic 80–156; BP diastolic 48–87; TEMP 97.7–98.2; O2SAT 94–97
[2023-09-17] MEDS ORDERED: HEPARIN 1,000UNITS/ML 10ML VIAL (FOR RADIOLOGY & DIALYSIS ONLY) IV PRN (06:00)
[2023-09-17] MEDS ORDERED: HEPARIN 1,000UNITS/ML 10ML VIAL (FOR RADIOLOGY & DIALYSIS ONLY) XX SCH (06:00)
[2023-09-17] MEDS ORDERED: SODIUM CHLORIDE 0.9% 1000ML IV PRN (06:00)
[2023-09-17 07:26] LABS: CALCIUM LEVEL 8.5 MG/DL (8.3-10.6); CREATININE FOR GFR 4.78 MG/DL (0.55-1.30); GLOMERULAR FILTRATION RATE 9.5 (>39); POTASSIUM SERUM 4.7 MMOL/L (3.5-5.1)
[2023-09-17] MEDS ORDERED: ceFAZolin SOD 1 GM in D5W MINI-BAG PLUS 50 ML IV SCH (07:45)
[2023-09-17 08:37] LABS: ERYTHROCYTE SEDIMENTATION RATE 85 mm/hr (0-30)
[2023-09-17 08:40] LABS: C REACTIVE PROTEIN QUANTITATIV 10.8 MG/DL (<1.0)
[2023-09-17 08:54] LABS: PROCALCITONIN 0.43 ng/ml
[2023-09-17 09:39] LABS: RED BLOOD COUNT 3.18 10^6/uL (4.00-5.40); WHITE BLOOD COUNT 18.4 10^3/uL (4.0-10.0)
[2023-09-17 09:40] LABS: BASO # 0.1 10^3/uL (0.0-0.2); BASO % 0.7 % (0.0-1.0); EOS # 0.3 10^3/uL (0.0-0.5); EOS % 1.4 % (0.0-3.0); HEMATOCRIT 29.4 % (36.0-47.0); HEMOGLOBIN 8.9 g/dl (12.0-15.5); LYMPH # 1.7 10^3/uL (1.5-5.0); LYMPH % 9.2 % (24.0-44.0); MEAN CORPUSCULAR HGB CONC 30.3 g/dl (32.0-36.5); MEAN CORPUSCULAR VOLUME 92.5 fl (80.0-96.0); MONO # 2.5 10^3/uL (0.0-0.8); MONO % 13.4 % (2.0-8.0); NEUTROPHILS # 12.6 10^3/uL (1.5-8.5); NEUTROPHILS % 68.4 % (36.0-66.0); PLATELET COUNT, AUTOMATED 322 10^3/uL (150-450)
[2023-09-17] MEDS: MIDODRINE 5 MG TAB PO SCH (16:03)
[2023-09-17] MEDS: ceFAZolin SOD 1 GM in D5W MINI-BAG PLUS 50 ML IV SCH (17:52)
[2023-09-18] VITALS (26 sets, daily range): BP systolic 92–126; BP diastolic 48–69; TEMP 96.8–97.3; O2SAT 92–97
[2023-09-18 05:57] LABS: HEMATOCRIT 26.1 % (36.0-47.0); HEMOGLOBIN 8.3 g/dl (12.0-15.5); MEAN CORPUSCULAR HEMOGLOBIN 28.9 pg (27.0-33.0); MEAN CORPUSCULAR VOLUME 90.9 fl (80.0-96.0); RED BLOOD COUNT 2.87 10^6/uL (4.00-5.40); WHITE BLOOD COUNT 15.8 10^3/uL (4.0-10.0)
[2023-09-18 05:58] LABS: BASO # 0.1 10^3/uL (0.0-0.2); BASO % 0.6 % (0.0-1.0); EOS # 0.3 10^3/uL (0.0-0.5); LYMPH # 1.8 10^3/uL (1.5-5.0); LYMPH % 11.3 % (24.0-44.0); MEAN CORPUSCULAR HGB CONC 31.8 g/dl (32.0-36.5); MONO # 2.3 10^3/uL (0.0-0.8); MONO % 14.3 % (2.0-8.0); NEUTROPHILS # 10.6 10^3/uL (1.5-8.5); NEUTROPHILS % 67.1 % (36.0-66.0); PLATELET COUNT, AUTOMATED 301 10^3/uL (150-450)
[2023-09-18 05:59] LABS: CREATININE FOR GFR 3.6 MG/DL (0.55-1.30); GLOMERULAR FILTRATION RATE 13.2 (>39); MAGNESIUM LEVEL 2.4 MG/DL (1.8-2.4); POTASSIUM SERUM 4.2 MMOL/L (3.5-5.1)
[2023-09-18] MEDS: FUROSEMIDE 20MG/2ML VIAL IV ONE (06:41)
[2023-09-18] MEDS: DIGOXIN INJ 0.5 MG/2 ML AMP IV ONE (07:18)
[2023-09-18] MEDS: METOPROLOL TART 25 MG TABLET PO ONE (10:11)
[2023-09-18] MEDS: DIGOXIN INJ 0.5 MG/2 ML AMP IV STA (10:11)
[2023-09-18] MEDS: MIDODRINE 5 MG TAB PO SCH (10:11)
[2023-09-18] MEDS ORDERED: CEFDINIR 300 MG CAP (OMNICEF) PO SCH (13:50)
[2023-09-18] MEDS: CEFDINIR 300 MG CAP (OMNICEF) PO ONE (15:00)
[2023-09-18] MEDS: DOXYCYCLINE HYCLATE 100MG TABLET PO SCH (15:01)
[2023-09-18] MEDS: LACTOBACILLUS ACIDOPHILUS CAP (BACID) PO SCH (17:40)
[2023-09-18] MEDS: METOPROLOL TART 25 MG TABLET PO SCH (17:42)
[2023-09-19 03:26] VITALS: BP 111/56; TEMP 96.9; O2SAT 96
[2023-09-19 07:43] VITALS: BP 111/58; TEMP 98.4; O2SAT 96
[2023-09-19 08:33] LABS: CALCIUM LEVEL 8.4 MG/DL (8.3-10.6); CREATININE FOR GFR 4.77 MG/DL (0.55-1.30); GLOMERULAR FILTRATION RATE 9.5 (>39); POTASSIUM SERUM 4.5 MMOL/L (3.5-5.1)
[2023-09-19 09:25] LABS: BASO # 0.2 10^3/uL (0.0-0.2); BASO % 0.9 % (0.0-1.0); EOS # 0.5 10^3/uL (0.0-0.5); EOS % 2.7 % (0.0-3.0); HEMATOCRIT 26.8 % (36.0-47.0); HEMOGLOBIN 8.2 g/dl (12.0-15.5); LYMPH # 1.5 10^3/uL (1.5-5.0); LYMPH % 8.7 % (24.0-44.0); MEAN CORPUSCULAR HEMOGLOBIN 28.5 pg (27.0-33.0); MEAN CORPUSCULAR HGB CONC 30.6 g/dl (32.0-36.5); MEAN CORPUSCULAR VOLUME 93.1 fl (80.0-96.0); MONO # 2.5 10^3/uL (0.0-0.8); MONO % 14.2 % (2.0-8.0); NEUTROPHILS # 12.3 10^3/uL (1.5-8.5); NEUTROPHILS % 68.9 % (36.0-66.0); PLATELET COUNT, AUTOMATED 360 10^3/uL (150-450); RED BLOOD COUNT 2.88 10^6/uL (4.00-5.40); WHITE BLOOD COUNT 17.8 10^3/uL (4.0-10.0)
[2023-09-19 10:45] LABS: PROCALCITONIN 0.49 ng/ml
[2023-09-19] MEDS: METOPROLOL TART 12.5 MG PER 1/2 TAB PO SCH (11:13)
[2023-09-19 12:00] VITALS: BP 110/73; TEMP 97.9; O2SAT 96
[2023-09-19] MEDS: SENNA 8.6 MG TAB (SENOKOT) PO PRN (12:52)
[2023-09-19 17:14] VITALS: BP 142/66
[2023-09-19 18:38] VITALS: BP 133/60; TEMP 97.7; O2SAT 97
[2023-09-19 23:36] VITALS: BP 102/57; TEMP 97.5; O2SAT 95
[2023-09-20 04:38] VITALS: BP 136/61; TEMP 97.2; O2SAT 96
[2023-09-20 05:39] LABS: BASO # 0.1 10^3/uL (0.0-0.2); BASO % 0.6 % (0.0-1.0); EOS # 0.6 10^3/uL (0.0-0.5); EOS % 3.6 % (0.0-3.0); HEMATOCRIT 26.9 % (36.0-47.0); HEMOGLOBIN 8.3 g/dl (12.0-15.5); LYMPH # 1.5 10^3/uL (1.5-5.0); LYMPH % 9.3 % (24.0-44.0); MEAN CORPUSCULAR HEMOGLOBIN 28.4 pg (27.0-33.0); MEAN CORPUSCULAR HGB CONC 30.9 g/dl (32.0-36.5); MEAN CORPUSCULAR VOLUME 92.1 fl (80.0-96.0); MONO # 2.1 10^3/uL (0.0-0.8); MONO % 13.4 % (2.0-8.0); NEUTROPHILS # 10.8 10^3/uL (1.5-8.5); NEUTROPHILS % 68.7 % (36.0-66.0); PLATELET COUNT, AUTOMATED 350 10^3/uL (150-450); RED BLOOD COUNT 2.92 10^6/uL (4.00-5.40); WHITE BLOOD COUNT 15.8 10^3/uL (4.0-10.0)
[2023-09-20] MEDS ORDERED: HEPARIN 1,000UNITS/ML 10ML VIAL (FOR RADIOLOGY & DIALYSIS ONLY) IV PRN (06:00)
[2023-09-20] MEDS ORDERED: SODIUM CHLORIDE 0.9% 1000ML IV PRN (06:00)
[2023-09-20] MEDS ORDERED: HEPARIN 1,000UNITS/ML 10ML VIAL (FOR RADIOLOGY & DIALYSIS ONLY) XX SCH (06:00)
[2023-09-20] MEDS ORDERED: LIDOCAINE 1% SDV 5ML VIAL SC PRN (06:00)
[2023-09-20 06:10] LABS: CALCIUM LEVEL 8.6 MG/DL (8.3-10.6); CREATININE FOR GFR 5.77 MG/DL (0.55-1.30); GLOMERULAR FILTRATION RATE 7.7 (>39); MAGNESIUM LEVEL 3.3 MG/DL (1.8-2.4); PHOSPHORUS LEVEL 5.1 MG/DL (2.4-5.1); POTASSIUM SERUM 4.8 MMOL/L (3.5-5.1)
[2023-09-20 07:31] VITALS: BP 130/58; TEMP 97.3; O2SAT 95
[2023-09-20] MEDS: SIMETHICONE 80MG CHEW TAB PO ONE (07:54)
[2023-09-20] MEDS: CARVedilol 6.25 MG TAB PO SCH (13:44)
[2023-09-20 15:54] VITALS: BP 125/59; TEMP 97.5; O2SAT 96
[2023-09-20] MEDS: CEFDINIR 300 MG CAP (OMNICEF) PO SCH (16:58)
[2023-09-20 20:27] VITALS: BP 123/60; TEMP 97.4; O2SAT 94
[2023-09-21 04:06] VITALS: BP 130/60; TEMP 97.1; O2SAT 96
[2023-09-21 05:48] LABS: BASO # 0.1 10^3/uL (0.0-0.2); EOS # 0.4 10^3/uL (0.0-0.5); EOS % 3.1 % (0.0-3.0); HEMOGLOBIN 7.8 g/dl (12.0-15.5); LYMPH # 1.3 10^3/uL (1.5-5.0); LYMPH % 10.7 % (24.0-44.0); MEAN CORPUSCULAR HEMOGLOBIN 28.3 pg (27.0-33.0); MEAN CORPUSCULAR HGB CONC 31.2 g/dl (32.0-36.5); MEAN CORPUSCULAR VOLUME 90.6 fl (80.0-96.0); MONO # 1.8 10^3/uL (0.0-0.8); MONO % 14.9 % (2.0-8.0); NEUTROPHILS # 7.9 10^3/uL (1.5-8.5); NEUTROPHILS % 66.5 % (36.0-66.0); PLATELET COUNT, AUTOMATED 252 10^3/uL (150-450); RED BLOOD COUNT 2.76 10^6/uL (4.00-5.40); WHITE BLOOD COUNT 11.9 10^3/uL (4.0-10.0)
[2023-09-21 06:32] LABS: CALCIUM LEVEL 7.8 MG/DL (8.3-10.6); CREATININE FOR GFR 3.87 MG/DL (0.55-1.30); GLOMERULAR FILTRATION RATE 12.1 (>39); POTASSIUM SERUM 4.2 MMOL/L (3.5-5.1)
[2023-09-21 07:36] VITALS: BP 123/60; TEMP 98.6; O2SAT 95
[2023-09-21 08:55] LABS: HEMATOCRIT 25.3 % (36.0-47.0); HEMOGLOBIN 7.9 g/dl (12.0-15.5)
[2023-09-21] MEDS: SIMETHICONE 80MG CHEW TAB PO PRN (09:05)
[2023-09-21 09:09] VITALS: BP 134/50
[2023-09-21 11:47] VITALS: BP 134/64; TEMP 97.4; O2SAT 95
[2023-09-21 14:52] LABS: PROCALCITONIN 0.58 ng/ml
[2023-09-21 16:18] LABS: HEMATOCRIT 26.3 % (36.0-47.0)
[2023-09-21 20:19] VITALS: BP 134/55; TEMP 98.4; O2SAT 94
[2023-09-22] VITALS (7 sets, daily range): BP systolic 116–142; BP diastolic 49–72; TEMP 97.2–97.9; O2SAT 91–93
[2023-09-22] MEDS ORDERED: HEPARIN 1,000UNITS/ML 10ML VIAL (FOR RADIOLOGY & DIALYSIS ONLY) IV PRN (06:00)
[2023-09-22] MEDS ORDERED: SODIUM CHLORIDE 0.9% 1000ML IV PRN (06:00)
[2023-09-22] MEDS ORDERED: HEPARIN 1,000UNITS/ML 10ML VIAL (FOR RADIOLOGY & DIALYSIS ONLY) XX SCH (06:00)
[2023-09-22 06:58] LABS: BASO # 0.1 10^3/uL (0.0-0.2); EOS # 0.4 10^3/uL (0.0-0.5); EOS % 3.1 % (0.0-3.0); HEMATOCRIT 25.5 % (36.0-47.0); HEMOGLOBIN 7.9 g/dl (12.0-15.5); LYMPH # 1.6 10^3/uL (1.5-5.0); LYMPH % 12.2 % (24.0-44.0); MEAN CORPUSCULAR HEMOGLOBIN 28.3 pg (27.0-33.0); MEAN CORPUSCULAR VOLUME 91.4 fl (80.0-96.0); MONO # 1.9 10^3/uL (0.0-0.8); MONO % 14.7 % (2.0-8.0); NEUTROPHILS # 8.3 10^3/uL (1.5-8.5); NEUTROPHILS % 64.3 % (36.0-66.0); PLATELET COUNT, AUTOMATED 277 10^3/uL (150-450); RED BLOOD COUNT 2.79 10^6/uL (4.00-5.40); WHITE BLOOD COUNT 12.9 10^3/uL (4.0-10.0)
[2023-09-22 07:22] LABS: CALCIUM LEVEL 8.1 MG/DL (8.3-10.6); CREATININE FOR GFR 5.16 MG/DL (0.55-1.30); GLOMERULAR FILTRATION RATE 8.7 (>39); POTASSIUM SERUM 4.3 MMOL/L (3.5-5.1)
[2023-09-22] MEDS: TRIAMCINOLONE ACET 0.1% OINTMENT 15GM EXT SCH (20:10)
[2023-09-22 22:02] LABS: HEMATOCRIT 30.4 % (36.0-47.0); HEMOGLOBIN 9.6 g/dl (12.0-15.5)
[2023-09-23 04:50] VITALS: BP 145/57; TEMP 97.9; O2SAT 93
[2023-09-23 06:51] LABS: BASO # 0.1 10^3/uL (0.0-0.2); BASO % 1.2 % (0.0-1.0); EOS # 0.3 10^3/uL (0.0-0.5); EOS % 2.8 % (0.0-3.0); HEMATOCRIT 30.2 % (36.0-47.0); HEMOGLOBIN 9.4 g/dl (12.0-15.5); LYMPH # 1.2 10^3/uL (1.5-5.0); LYMPH % 9.9 % (24.0-44.0); MEAN CORPUSCULAR HEMOGLOBIN 28.4 pg (27.0-33.0); MEAN CORPUSCULAR HGB CONC 31.1 g/dl (32.0-36.5); MEAN CORPUSCULAR VOLUME 91.2 fl (80.0-96.0); MONO # 1.6 10^3/uL (0.0-0.8); MONO % 13.4 % (2.0-8.0); NEUTROPHILS # 8.1 10^3/uL (1.5-8.5); NEUTROPHILS % 68.5 % (36.0-66.0); PLATELET COUNT, AUTOMATED 247 10^3/uL (150-450); RED BLOOD COUNT 3.31 10^6/uL (4.00-5.40); WHITE BLOOD COUNT 11.8 10^3/uL (4.0-10.0)
[2023-09-23 07:22] LABS: BLOOD UREA NITROGEN 15 MG/DL (9-23); CALCIUM LEVEL 7.9 MG/DL (8.3-10.6); CARBON DIOXIDE LEVEL 27 MMOL/L (20-31); CHLORIDE LEVEL 101 MMOL/L (98-107); CREATININE FOR GFR 3.38 MG/DL (0.55-1.30); GLOMERULAR FILTRATION RATE 14.2 (>39); GLUCOSE, FASTING 111 MG/DL (74-106); POTASSIUM SERUM 3.8 MMOL/L (3.5-5.1); SODIUM LEVEL 138 MMOL/L (136-145)
[2023-09-23 13:18] LABS: ALKALINE PHOSPHATASE 81 U/L (46-116); ALT/SGPT < 9 U/L (7.0-40); AST/SGOT 11 U/L (<34); BILIRUBIN,DIRECT 0.3 MG/DL (<0.4); BILIRUBIN,TOTAL 0.8 MG/DL (0.3-1.2); TOTAL PROTEIN 5.1 G/DL (5.7-8.2)
[2023-09-23 14:00] VITALS: BP 119/43; TEMP 97.7; O2SAT 97
[2023-09-23 20:31] VITALS: BP 136/67; TEMP 97.7; O2SAT 94
[2023-09-23] MEDS: APIXABAN 5 MG TAB (ELIQUIS) PO SCH (21:58)
[2023-09-24] MEDS ORDERED: HEPARIN 1,000UNITS/ML 10ML VIAL (FOR RADIOLOGY & DIALYSIS ONLY) XX SCH
[2023-09-24] MEDS ORDERED: HEPARIN 1,000UNITS/ML 10ML VIAL (FOR RADIOLOGY & DIALYSIS ONLY) IV PRN
[2023-09-24] MEDS ORDERED: SODIUM CHLORIDE 0.9% 1000ML IV PRN
[2023-09-24 06:00] VITALS: BP 141/68; TEMP 97.5; O2SAT 95
[2023-09-24 07:03] LABS: BASO # 0.1 10^3/uL (0.0-0.2); BASO % 0.8 % (0.0-1.0); EOS # 0.3 10^3/uL (0.0-0.5); EOS % 2.3 % (0.0-3.0); HEMATOCRIT 31.2 % (36.0-47.0); HEMOGLOBIN 9.9 g/dl (12.0-15.5); LYMPH # 1.4 10^3/uL (1.5-5.0); LYMPH % 10.7 % (24.0-44.0); MEAN CORPUSCULAR HEMOGLOBIN 28.8 pg (27.0-33.0); MEAN CORPUSCULAR HGB CONC 31.7 g/dl (32.0-36.5); MEAN CORPUSCULAR VOLUME 90.7 fl (80.0-96.0); MONO # 1.6 10^3/uL (0.0-0.8); MONO % 11.8 % (2.0-8.0); NEUTROPHILS # 9.2 10^3/uL (1.5-8.5); NEUTROPHILS % 69.5 % (36.0-66.0); PLATELET COUNT, AUTOMATED 271 10^3/uL (150-450); RED BLOOD COUNT 3.44 10^6/uL (4.00-5.40); WHITE BLOOD COUNT 13.3 10^3/uL (4.0-10.0)
[2023-09-24 07:36] LABS: CALCIUM LEVEL 8.1 MG/DL (8.3-10.6); CREATININE FOR GFR 4.75 MG/DL (0.55-1.30); GLOMERULAR FILTRATION RATE 9.6 (>39); POTASSIUM SERUM 3.8 MMOL/L (3.5-5.1)
[2023-09-24] MEDS: VANICREAM MOISTURIZING SKIN CREAM 113GM TUBE TOP SCH (07:48)
[2023-09-24 14:00] VITALS: BP 139/63; TEMP 97.9; O2SAT 94
[2023-09-24 20:37] VITALS: BP 141/64; TEMP 97.7; O2SAT 94
[2023-09-25 05:17] VITALS: BP 150/66; TEMP 97.9; O2SAT 95
[2023-09-25 06:41] LABS: HEMATOCRIT 30.9 % (36.0-47.0); HEMOGLOBIN 9.6 g/dl (12.0-15.5); MEAN CORPUSCULAR HEMOGLOBIN 28.4 pg (27.0-33.0); MEAN CORPUSCULAR HGB CONC 31.1 g/dl (32.0-36.5); MEAN CORPUSCULAR VOLUME 91.4 fl (80.0-96.0); PLATELET COUNT, AUTOMATED 252 10^3/uL (150-450); RED BLOOD COUNT 3.38 10^6/uL (4.00-5.40); WHITE BLOOD COUNT 10.5 10^3/uL (4.0-10.0)
[2023-09-25 07:01] LABS: CALCIUM LEVEL 8.3 MG/DL (8.3-10.6); CREATININE FOR GFR 3.24 MG/DL (0.55-1.30); GLOMERULAR FILTRATION RATE 14.9 (>39); POTASSIUM SERUM 3.9 MMOL/L (3.5-5.1)
[2023-09-25 07:24] LABS: ATYPICAL LYMPH 2 % (0-5); BASOPHILS 1 % (0-1); EOSINOPHILS 2 % (0-3); LYMPHOCYTES 7 % (16-44); METAMYELOCYTES 2 % (0-0); MONOCYTES 5 % (0-5); MYELOCYTES 5 % (0-0); NEUTROPHILS 76 % (28-66)
[2023-09-25 07:26] LABS: ANISOCYTOSIS 1+; HYPOCHROMASIA 1+; PLATELET ESTIMATE NORMAL (NORMAL); POLYCHROMASIA 1+
[2023-09-25 07:28] LABS: PLATELET CLUMPS SMALL AMT; POIKILOCYTOSIS 1+
[2023-09-25 14:00] VITALS: BP 128/68; TEMP 97.7; O2SAT 97
[2023-09-25 20:00] VITALS: BP 136/68; TEMP 97.9; O2SAT 97
[2023-09-26 05:14] LABS: BASO # 0.1 10^3/uL (0.0-0.2); BASO % 1.3 % (0.0-1.0); EOS # 0.3 10^3/uL (0.0-0.5); EOS % 3.2 % (0.0-3.0); HEMATOCRIT 32.6 % (36.0-47.0); LYMPH # 1.4 10^3/uL (1.5-5.0); LYMPH % 14.9 % (24.0-44.0); MEAN CORPUSCULAR HGB CONC 30.7 g/dl (32.0-36.5); MEAN CORPUSCULAR VOLUME 91.3 fl (80.0-96.0); MONO % 11.2 % (2.0-8.0); NEUTROPHILS # 5.9 10^3/uL (1.5-8.5); NEUTROPHILS % 63.6 % (36.0-66.0); PLATELET COUNT, AUTOMATED 250 10^3/uL (150-450); RED BLOOD COUNT 3.57 10^6/uL (4.00-5.40); WHITE BLOOD COUNT 9.3 10^3/uL (4.0-10.0)
[2023-09-26 05:37] LABS: CALCIUM LEVEL 8.4 MG/DL (8.3-10.6); CREATININE FOR GFR 4.4 MG/DL (0.55-1.30); GLOMERULAR FILTRATION RATE 10.5 (>39); POTASSIUM SERUM 4.2 MMOL/L (3.5-5.1)
[2023-09-26 05:58] VITALS: BP 138/67; TEMP 97.7; O2SAT 95
[2023-09-26] MEDS ORDERED: SODIUM CHLORIDE 0.9% 1000ML IV PRN (06:45)
[2023-09-26] MEDS ORDERED: HEPARIN 1,000UNITS/ML 10ML VIAL (FOR RADIOLOGY & DIALYSIS ONLY) IV PRN (06:45)
[2023-09-26] MEDS ORDERED: HEPARIN 1,000UNITS/ML 10ML VIAL (FOR RADIOLOGY & DIALYSIS ONLY) XX SCH (06:45)
[2023-09-26 14:00] VITALS: BP 116/84; TEMP 98.1; O2SAT 98
[2023-09-26] MEDS ORDERED: PANT40TA29 PO (16:50)
[2023-09-26] MEDS ORDERED: CARV6.25 PO (16:50)
[2023-09-26] MEDS ORDERED: ELIQ5TAB PO (16:50)
[2023-09-26 19:46] VITALS: BP 123/47; TEMP 98.1; O2SAT 96
[2023-09-26 20:01] VITALS: BP 138/61; TEMP 97.7; O2SAT 98
[2023-09-26 21:20] VITALS: BP 138/61
[2023-09-27 05:28] VITALS: BP 147/68; TEMP 97.7; O2SAT 97
== END 2023-09-27 09:56 | DRG 673 ==
LOC: M ED 12:07 → EDBD 12:07 → M ED INP 17:29 → ENRESERV 09-01 11:21 → M PCU 09-01 12:00 → M MS5PR 09-07 15:10 → M PCU 09-18 06:53 → M MSPAV 09-21 14:48
PROVIDERS: ADMIT Student in an Organized Health Care Education/Training Program; ATTEND General Practice
PROC: 30233N1 Transfusion of Nonautologous Red Blood Cells into Peripheral Vein, Percutaneous Approach (ICD-10-PCS; 2023-08-31)
PROC: 0DB68ZX Excision of Stomach, Via Natural or Artificial Opening Endoscopic, Diagnostic (ICD-10-PCS; 2023-09-02)
PROC: 0W3P8ZZ Control Bleeding in Gastrointestinal Tract, Via Natural or Artificial Opening Endoscopic (ICD-10-PCS; 2023-09-02)
PROC: 0DB78ZX Excision of Stomach, Pylorus, Via Natural or Artificial Opening Endoscopic, Diagnostic (ICD-10-PCS; 2023-09-02)
PROC: B246ZZZ Ultrasonography of Right and Left Heart (ICD-10-PCS; 2023-09-03)
PROC: 06HM33Z Insertion of Infusion Device into Right Femoral Vein, Percutaneous Approach (ICD-10-PCS; 2023-09-10)
PROC: 5A1D70Z Performance of Urinary Filtration, Intermittent, Less than 6 Hours Per Day (ICD-10-PCS; 2023-09-10)
PROC: 0JH63XZ Insertion of Tunneled Vascular Access Device into Chest Subcutaneous Tissue and Fascia, Percutaneous Approach (ICD-10-PCS; principal; 2023-09-12)
PROC: 02H633Z Insertion of Infusion Device into Right Atrium, Percutaneous Approach (ICD-10-PCS; 2023-09-12)
PROC: 0TB13ZX Excision of Left Kidney, Percutaneous Approach, Diagnostic (ICD-10-PCS; 2023-09-13)
DX: N17.0 Acute kidney failure with tubular necrosis (principal); A41.9 Sepsis, unspecified organism; J18.9 Pneumonia, unspecified organism; K92.1 Melena; D62 Acute posthemorrhagic anemia; N39.0 Urinary tract infection, site not specified; E87.1 Hypo-osmolality and hyponatremia; I12.0 Hypertensive chronic kidney disease with stage 5 chronic kidney disease or end stage renal disease; J90 Pleural effusion, not elsewhere classified; E87.20 Acidosis, unspecified; E78.5 Hyperlipidemia, unspecified; N18.6 End stage renal disease; E11.22 Type 2 diabetes mellitus with diabetic chronic kidney disease; E03.9 Hypothyroidism, unspecified; J45.909 Unspecified asthma, uncomplicated; R54 Age-related physical debility; K21.9 Gastro-esophageal reflux disease without esophagitis; M21.869 Other specified acquired deformities of unspecified lower leg; I89.0 Lymphedema, not elsewhere classified; K31.7 Polyp of stomach and duodenum; E83.42 Hypomagnesemia; K31.89 Other diseases of stomach and duodenum; K55.20 Angiodysplasia of colon without hemorrhage; R33.9 Retention of urine, unspecified; B96.1 Klebsiella pneumoniae [K. pneumoniae] as the cause of diseases classified elsewhere; E87.5 Hyperkalemia; E86.1 Hypovolemia; K59.09 Other constipation; D63.1 Anemia in chronic kidney disease; R80.9 Proteinuria, unspecified; I95.3 Hypotension of hemodialysis; I48.0 Paroxysmal atrial fibrillation; R06.6 Hiccough; E87.70 Fluid overload, unspecified; I08.3 Combined rheumatic disorders of mitral, aortic and tricuspid valves; R21 Rash and other nonspecific skin eruption; Z79.4 Long term (current) use of insulin; Z87.81 Personal history of (healed) traumatic fracture; Z85.3 Personal history of malignant neoplasm of breast; Z89.421 Acquired absence of other right toe(s); Z90.13 Acquired absence of bilateral breasts and nipples; Z98.42 Cataract extraction status, left eye; Z98.41 Cataract extraction status, right eye; Z88.0 Allergy status to penicillin; Z79.899 Other long term (current) drug therapy; Z79.02 Long term (current) use of antithrombotics/antiplatelets; Z79.890 Hormone replacement therapy; Z99.2 Dependence on renal dialysis

== ENCOUNTER → 2023-08-31 | Outpatient (REF) | payer MEDICARE, MEDICAID ==
[~2023-08-31] MED LIST changes: +ACET500T15 PO; +ACET650T15 PO; +BISA10SU27 PR; +CLOP75TA99 PO; +FLEEENE12 PR; +LANTINJ4 SC; +LEVO175T2 PO; +MELA3TAB30 PO; +MILK24002 PO; +ONDA-83 PO; +SENN-186 PO; +VALS1TAB66 PO
[2023-08-31 10:36] LABS: HEMATOCRIT 21.3 % (36.0-47.0); MEAN CORPUSCULAR HEMOGLOBIN 27.8 pg (27.0-33.0); MEAN CORPUSCULAR HGB CONC 32.4 g/dl (32.0-36.5); MEAN CORPUSCULAR VOLUME 85.9 fl (80.0-96.0); PLATELET COUNT, AUTOMATED 295 10^3/uL (150-450); RED BLOOD COUNT 2.48 10^6/uL (4.00-5.40); WHITE BLOOD COUNT 11.2 10^3/uL (4.0-10.0)
[2023-08-31 10:52] LABS: HEMOGLOBIN 6.9 g/dl (12.0-15.5)
[2023-08-31 11:02] LABS: CALCIUM LEVEL 7.7 MG/DL (8.3-10.6); GLOMERULAR FILTRATION RATE 11.7 (>39); POTASSIUM SERUM 4.5 MMOL/L (3.5-5.1)
== END ==
PROVIDERS: ATTEND Internal Medicine
DX: D64.9 Anemia, unspecified (principal)

== ENCOUNTER → 2023-09-28 | Outpatient (REF) | payer MEDICAID, MEDICARE ==
[~2023-09-28] MED LIST changes: +ACET500T15 PO; +ACET650T15 PO; +BISA10SU27 PR; +CARV6.25 PO; +CLOP75TA99 PO; +ELIQ5TAB PO; +FLEEENE12 PR; +LANTINJ4 SC; +LEVO175T2 PO; +MELA3TAB30 PO; +MILK24002 PO; +ONDA-83 PO; +SENN-186 PO; +VALS1TAB66 PO
[2023-09-28 10:31] LABS: HEMATOCRIT 34.9 % (36.0-47.0); HEMOGLOBIN 10.9 g/dl (12.0-15.5); MEAN CORPUSCULAR HEMOGLOBIN 28.2 pg (27.0-33.0); MEAN CORPUSCULAR HGB CONC 31.2 g/dl (32.0-36.5); MEAN CORPUSCULAR VOLUME 90.2 fl (80.0-96.0); PLATELET COUNT, AUTOMATED 250 10^3/uL (150-450); RED BLOOD COUNT 3.87 10^6/uL (4.00-5.40); WHITE BLOOD COUNT 8.9 10^3/uL (4.0-10.0)
== END ==
PROVIDERS: ATTEND Physician Assistant
DX: D64.9 Anemia, unspecified (principal)

== ENCOUNTER → 2023-09-29 | Outpatient (REF) | payer MEDICAID, MEDICARE ==
[2023-09-29 10:57] LABS: HEMATOCRIT 34.8 % (36.0-47.0); MEAN CORPUSCULAR HEMOGLOBIN 28.8 pg (27.0-33.0); MEAN CORPUSCULAR HGB CONC 31.6 g/dl (32.0-36.5); MEAN CORPUSCULAR VOLUME 91.1 fl (80.0-96.0); PLATELET COUNT, AUTOMATED 265 10^3/uL (150-450); RED BLOOD COUNT 3.82 10^6/uL (4.00-5.40); WHITE BLOOD COUNT 8.6 10^3/uL (4.0-10.0)
== END ==
PROVIDERS: ATTEND Physician Assistant
DX: D64.9 Anemia, unspecified (principal)

== ENCOUNTER → 2023-09-30 | Outpatient (REF) | payer MEDICARE, MEDICAID | PROVIDERS: ATTEND Physician Assistant | DX: D64.9 Anemia, unspecified (principal); Z53.8 Procedure and treatment not carried out for other reasons ==

== ENCOUNTER → 2023-10-01 | Outpatient (REF) | payer MEDICARE, MEDICAID ==
[2023-10-01 13:16] LABS: HEMATOCRIT 31.9 % (36.0-47.0); HEMOGLOBIN 9.9 g/dl (12.0-15.5); MEAN CORPUSCULAR HEMOGLOBIN 28.3 pg (27.0-33.0); MEAN CORPUSCULAR VOLUME 91.1 fl (80.0-96.0); PLATELET COUNT, AUTOMATED 231 10^3/uL (150-450); WHITE BLOOD COUNT 7.4 10^3/uL (4.0-10.0)
== END ==
PROVIDERS: ATTEND Physician Assistant
DX: D64.9 Anemia, unspecified (principal)

== ENCOUNTER → 2023-10-02 | Outpatient (REF) | payer MEDICARE, MEDICAID | PROVIDERS: ATTEND Physician Assistant | DX: D64.9 Anemia, unspecified (principal); Z53.8 Procedure and treatment not carried out for other reasons ==

== ENCOUNTER → 2023-10-03 | Outpatient (REF) | payer MEDICAID, MEDICARE ==
[2023-10-03 11:50] LABS: HEMATOCRIT 35.6 % (36.0-47.0); MEAN CORPUSCULAR HEMOGLOBIN 28.1 pg (27.0-33.0); MEAN CORPUSCULAR HGB CONC 30.9 g/dl (32.0-36.5); MEAN CORPUSCULAR VOLUME 90.8 fl (80.0-96.0); PLATELET COUNT, AUTOMATED 255 10^3/uL (150-450); RED BLOOD COUNT 3.92 10^6/uL (4.00-5.40); WHITE BLOOD COUNT 8.6 10^3/uL (4.0-10.0)
== END ==
PROVIDERS: ATTEND Physician Assistant
DX: D64.9 Anemia, unspecified (principal)

== ENCOUNTER → 2023-10-03 | Outpatient (REF) | payer MEDICAID, MEDICARE | PROVIDERS: ATTEND Physician Assistant | DX: D64.9 Anemia, unspecified (principal); Z53.8 Procedure and treatment not carried out for other reasons ==

== ENCOUNTER → 2023-10-05 | Outpatient (REF) | payer MEDICAID, MEDICARE | PROVIDERS: ATTEND Physician Assistant | DX: D64.9 Anemia, unspecified (principal); Z53.8 Procedure and treatment not carried out for other reasons ==

== ENCOUNTER → 2023-10-06 | Outpatient (REF) | payer MEDICAID, MEDICARE ==
[2023-10-06 13:54] LABS: HEMATOCRIT 41.2 % (36.0-47.0); HEMOGLOBIN 12.7 g/dl (12.0-15.5); MEAN CORPUSCULAR HGB CONC 30.8 g/dl (32.0-36.5); MEAN CORPUSCULAR VOLUME 90.9 fl (80.0-96.0); PLATELET COUNT, AUTOMATED 274 10^3/uL (150-450); RED BLOOD COUNT 4.53 10^6/uL (4.00-5.40); WHITE BLOOD COUNT 12.4 10^3/uL (4.0-10.0)
== END ==
PROVIDERS: ATTEND Physician Assistant
DX: D64.9 Anemia, unspecified (principal)

== ENCOUNTER → 2023-10-17 | Outpatient (REF) | PROVIDERS: ATTEND Physician Assistant | DX: D64.9 Anemia, unspecified (principal); Z53.8 Procedure and treatment not carried out for other reasons ==

== ENCOUNTER → 2023-10-18 | Outpatient (REF) | PROVIDERS: ATTEND Physician Assistant | DX: D64.9 Anemia, unspecified (principal); Z53.8 Procedure and treatment not carried out for other reasons ==

== ENCOUNTER → 2023-10-19 | Outpatient (REF) ==
[~2023-10-19] MED LIST changes: -ROSU40TA4; -ROSU40TA4 PO; +ROSU40TA63; +ROSU40TA63 PO
[2023-10-19 13:46] LABS: HEMATOCRIT 32.1 % (36.0-47.0); HEMOGLOBIN 10.4 g/dl (12.0-15.5); MEAN CORPUSCULAR HEMOGLOBIN 29.1 pg (27.0-33.0); MEAN CORPUSCULAR HGB CONC 32.4 g/dl (32.0-36.5); MEAN CORPUSCULAR VOLUME 89.9 fl (80.0-96.0); PLATELET COUNT, AUTOMATED 232 10^3/uL (150-450); RED BLOOD COUNT 3.57 10^6/uL (4.00-5.40); WHITE BLOOD COUNT 9.5 10^3/uL (4.0-10.0)
[2023-10-19 14:06] LABS: CALCIUM LEVEL 8.9 MG/DL (8.3-10.6); CREATININE FOR GFR 3.03 MG/DL (0.55-1.30); GLOMERULAR FILTRATION RATE 16.1 (>39); POTASSIUM SERUM 3.5 MMOL/L (3.5-5.1)
== END ==
PROVIDERS: ATTEND Physician Assistant
DX: D64.9 Anemia, unspecified (principal)

== ENCOUNTER → 2023-10-24 | Outpatient (REF) ==
[2023-10-24 10:35] LABS: HEMATOCRIT 27.6 % (36.0-47.0); HEMOGLOBIN 8.9 g/dl (12.0-15.5); MEAN CORPUSCULAR HEMOGLOBIN 28.1 pg (27.0-33.0); MEAN CORPUSCULAR HGB CONC 32.2 g/dl (32.0-36.5); MEAN CORPUSCULAR VOLUME 87.1 fl (80.0-96.0); PLATELET COUNT, AUTOMATED 174 10^3/uL (150-450); RED BLOOD COUNT 3.17 10^6/uL (4.00-5.40); WHITE BLOOD COUNT 10.2 10^3/uL (4.0-10.0)
[2023-10-24 10:56] LABS: CALCIUM LEVEL 8.2 MG/DL (8.3-10.6); CREATININE FOR GFR 3.97 MG/DL (0.55-1.30); GLOMERULAR FILTRATION RATE 11.8 (>39); POTASSIUM SERUM 3.3 MMOL/L (3.5-5.1)
== END ==
PROVIDERS: ATTEND Physician Assistant
DX: D64.9 Anemia, unspecified (principal)

== ENCOUNTER → 2023-11-10 | Outpatient (CLI) | payer MEDICARE, OTHER ==
[~2023-11-10] MED LIST changes: +ONDA-282 PO; -ONDA4TAB6 PO
== END ==
LOC: M PLAIMG 11:15
PROVIDERS: ATTEND Internal Medicine
DX: M85.88 Other specified disorders of bone density and structure, other site (principal); M17.12 Unilateral primary osteoarthritis, left knee

== ENCOUNTER → 2023-11-28 | Outpatient (REF) | payer MEDICARE, OTHER | PROVIDERS: ATTEND Physician Assistant | DX: D64.9 Anemia, unspecified (principal); Z53.8 Procedure and treatment not carried out for other reasons ==

== ENCOUNTER → 2023-11-29 | Outpatient (REF) | payer MEDICARE, OTHER ==
[2023-11-29 11:33] LABS: HEMATOCRIT 27.3 % (36.0-47.0); HEMOGLOBIN 8.9 g/dl (12.0-15.5); MEAN CORPUSCULAR HEMOGLOBIN 29.5 pg (27.0-33.0); MEAN CORPUSCULAR HGB CONC 32.6 g/dl (32.0-36.5); MEAN CORPUSCULAR VOLUME 90.4 fl (80.0-96.0); PLATELET COUNT, AUTOMATED 239 10^3/uL (150-450); RED BLOOD COUNT 3.02 10^6/uL (4.00-5.40); WHITE BLOOD COUNT 6.9 10^3/uL (4.0-10.0)
[2023-11-29 11:52] LABS: CREATININE FOR GFR 2.41 MG/DL (0.55-1.30); POTASSIUM SERUM 3.8 MMOL/L (3.5-5.1)
== END ==
PROVIDERS: ATTEND Physician Assistant
DX: D64.9 Anemia, unspecified (principal)

== ENCOUNTER → 2023-12-28 | Outpatient (REF) | payer MEDICARE, OTHER | PROVIDERS: ATTEND Physician Assistant | DX: D64.9 Anemia, unspecified (principal); Z53.8 Procedure and treatment not carried out for other reasons ==

== ENCOUNTER → 2023-12-29 | Outpatient (REF) | payer MEDICARE, OTHER ==
[2023-12-29 14:20] LABS: HEMATOCRIT 35.9 % (36.0-47.0); HEMOGLOBIN 11.1 g/dl (12.0-15.5); MEAN CORPUSCULAR HGB CONC 30.9 g/dl (32.0-36.5); MEAN CORPUSCULAR VOLUME 93.7 fl (80.0-96.0); PLATELET COUNT, AUTOMATED 267 10^3/uL (150-450); RED BLOOD COUNT 3.83 10^6/uL (4.00-5.40); WHITE BLOOD COUNT 8.3 10^3/uL (4.0-10.0)
[2023-12-29 14:55] LABS: CALCIUM LEVEL 9.5 MG/DL (8.3-10.6); CREATININE FOR GFR 2.57 MG/DL (0.55-1.30); GLOMERULAR FILTRATION RATE 19.5 (>39); POTASSIUM SERUM 4.2 MMOL/L (3.5-5.1); THYROID STIMULATING HORMONE 5.59 uIU/ML (0.55-4.78)
== END ==
PROVIDERS: ATTEND Physician Assistant
DX: D64.9 Anemia, unspecified (principal)

== ENCOUNTER → 2024-01-12 | Outpatient (CLI) | payer MEDICARE, OTHER | LOC: M PLAIMG 11:46 | PROVIDERS: ATTEND Internal Medicine | DX: J90 Pleural effusion, not elsewhere classified (principal) ==

== ENCOUNTER → 2024-01-17 | Outpatient (CLI) | payer MEDICARE | LOC: M EKG 13:00 | PROVIDERS: ATTEND Internal Medicine Cardiovascular Disease | DX: I48.0 Paroxysmal atrial fibrillation (principal) ==

== ENCOUNTER → 2024-03-11 | Outpatient (REF) | payer MEDICARE ==
[~2024-03-11] MED LIST changes: +GABA-1635 PO; -GABA800T4 PO; -ROSU40TA63; -ROSU40TA63 PO; +ROSU40TA81; +ROSU40TA81 PO
== END ==
PROVIDERS: ATTEND Nurse Practitioner Family
DX: R05.9 Cough, unspecified (principal)

== ENCOUNTER → 2024-03-27 | Outpatient (CLI) | payer MEDICARE, MEDICAID ==
[~2024-03-27] MED LIST changes: +GABA-1172 PO; -GABA-282 PO; +NAPR-1405 PO; -NAPR500T6 PO
== END ==
LOC: M RAD 09:45
PROVIDERS: ATTEND Physician Assistant
DX: I73.9 Peripheral vascular disease, unspecified (principal)

== ENCOUNTER → 2024-04-04 | Outpatient (REF) | payer MEDICARE ==
[2024-04-04 10:06] LABS: HEMATOCRIT 35.1 % (36.0-47.0); HEMOGLOBIN 10.8 g/dl (12.0-15.5); MEAN CORPUSCULAR HEMOGLOBIN 27.8 pg (27.0-33.0); MEAN CORPUSCULAR HGB CONC 30.8 g/dl (32.0-36.5); MEAN CORPUSCULAR VOLUME 90.2 fl (80.0-96.0); PLATELET COUNT, AUTOMATED 189 10^3/uL (150-450); RED BLOOD COUNT 3.89 10^6/uL (4.00-5.40); WHITE BLOOD COUNT 6.8 10^3/uL (4.0-10.0)
[2024-04-04 10:08] LABS: CALCIUM LEVEL 9.7 MG/DL (8.3-10.6); CREATININE FOR GFR 4.15 MG/DL (0.55-1.30); GLOMERULAR FILTRATION RATE 11.2 (>39); POTASSIUM SERUM 4.5 MMOL/L (3.5-5.1)
== END ==
PROVIDERS: ATTEND Physician Assistant
DX: D64.9 Anemia, unspecified (principal)

== ENCOUNTER → 2024-04-10 | Outpatient (REF) | payer MEDICARE, MEDICAID ==
[2024-04-10 14:11] LABS: HEMATOCRIT 35.5 % (36.0-47.0); HEMOGLOBIN 11.1 g/dl (12.0-15.5); MEAN CORPUSCULAR HEMOGLOBIN 28.4 pg (27.0-33.0); MEAN CORPUSCULAR HGB CONC 31.3 g/dl (32.0-36.5); MEAN CORPUSCULAR VOLUME 90.8 fl (80.0-96.0); PLATELET COUNT, AUTOMATED 185 10^3/uL (150-450); RED BLOOD COUNT 3.91 10^6/uL (4.00-5.40)
[2024-04-10 14:58] LABS: CALCIUM LEVEL 9.1 MG/DL (8.3-10.6); GLOMERULAR FILTRATION RATE 16.3 (>39); POTASSIUM SERUM 4.6 MMOL/L (3.5-5.1)
== END ==
PROVIDERS: ATTEND Internal Medicine
DX: Z01.818 Encounter for other preprocedural examination (principal)

== ENCOUNTER → 2024-07-02 | Outpatient (REF) | payer MEDICARE, MEDICAID ==
[~2024-07-02] MED LIST changes: +MAGN400O73 PO; -MILK24002 PO
[2024-07-02 10:31] LABS: HEMOGLOBIN 10.1 g/dl (12.0-15.5); MEAN CORPUSCULAR HEMOGLOBIN 28.5 pg (27.0-33.0); MEAN CORPUSCULAR HGB CONC 31.6 g/dl (32.0-36.5); MEAN CORPUSCULAR VOLUME 90.4 fl (80.0-96.0); PLATELET COUNT, AUTOMATED 176 10^3/uL (150-450); RED BLOOD COUNT 3.54 10^6/uL (4.00-5.40); WHITE BLOOD COUNT 6.4 10^3/uL (4.0-10.0)
[2024-07-02 10:50] LABS: CALCIUM LEVEL 9.1 MG/DL (8.3-10.6); CREATININE FOR GFR 4.97 MG/DL (0.55-1.30); GLOMERULAR FILTRATION RATE 9.1 (>39); POTASSIUM SERUM 4.9 MMOL/L (3.5-5.1)
[2024-07-02 10:52] LABS: THYROID STIMULATING HORMONE 0.911 uIU/ML (0.55-4.78)
== END ==
PROVIDERS: ATTEND Internal Medicine
DX: D64.9 Anemia, unspecified (principal); E03.9 Hypothyroidism, unspecified

== ENCOUNTER → 2024-08-15 | Outpatient (REF) | payer MEDICARE, MEDICAID ==
[2024-08-15 09:55] LABS: HEMATOCRIT 30.8 % (36.0-47.0); HEMOGLOBIN 9.8 g/dl (12.0-15.5); MEAN CORPUSCULAR HEMOGLOBIN 29.8 pg (27.0-33.0); MEAN CORPUSCULAR HGB CONC 31.8 g/dl (32.0-36.5); MEAN CORPUSCULAR VOLUME 93.6 fl (80.0-96.0); PLATELET COUNT, AUTOMATED 193 10^3/uL (150-450); RED BLOOD COUNT 3.29 10^6/uL (4.00-5.40)
[2024-08-15 10:32] LABS: CALCIUM LEVEL 9.1 MG/DL (8.3-10.6); CREATININE FOR GFR 3.77 MG/DL (0.55-1.30); GLOMERULAR FILTRATION RATE 12.5 (>39); POTASSIUM SERUM 4.4 MMOL/L (3.5-5.1)
== END ==
PROVIDERS: ATTEND Physician Assistant
DX: Z01.818 Encounter for other preprocedural examination (principal)

== ENCOUNTER → 2024-08-21 | Outpatient (REF) | payer MEDICARE, MEDICAID | PROVIDERS: ATTEND Physician Assistant | DX: R05.9 Cough, unspecified (principal); I28.8 Other diseases of pulmonary vessels ==

== ENCOUNTER → 2024-08-21 | Outpatient (REF) | payer MEDICARE, MEDICAID ==
[2024-08-21 15:40] LABS: HEMATOCRIT 30.2 % (36.0-47.0); HEMOGLOBIN 9.7 g/dl (12.0-15.5); MEAN CORPUSCULAR HEMOGLOBIN 29.8 pg (27.0-33.0); MEAN CORPUSCULAR HGB CONC 32.1 g/dl (32.0-36.5); MEAN CORPUSCULAR VOLUME 92.9 fl (80.0-96.0); PLATELET COUNT, AUTOMATED 183 10^3/uL (150-450); RED BLOOD COUNT 3.25 10^6/uL (4.00-5.40); WHITE BLOOD COUNT 9.3 10^3/uL (4.0-10.0)
[2024-08-21 16:01] LABS: CALCIUM LEVEL 8.5 MG/DL (8.3-10.6); CREATININE FOR GFR 3.15 MG/DL (0.55-1.30); GLOMERULAR FILTRATION RATE 15.3 (>39); POTASSIUM SERUM 4.3 MMOL/L (3.5-5.1)
== END ==
PROVIDERS: ATTEND Physician Assistant
DX: R05.9 Cough, unspecified (principal); Z79.899 Other long term (current) drug therapy; I28.8 Other diseases of pulmonary vessels

== ENCOUNTER → 2024-09-18 | Outpatient (REF) | payer MEDICARE, MEDICAID | PROVIDERS: ATTEND Physician Assistant | DX: R05.9 Cough, unspecified (principal); Z97.8 Presence of other specified devices ==

== ENCOUNTER → 2024-09-18 | Outpatient (REF) | payer MEDICARE, MEDICAID | PROVIDERS: ATTEND Physician Assistant | DX: R05.9 Cough, unspecified (principal); Z97.8 Presence of other specified devices ==

== ENCOUNTER → 2024-09-26 | Outpatient (REF) | payer MEDICARE, MEDICAID ==
[2024-09-26 18:38] LABS: BASO # 0.1 10^3/uL (0.0-0.2); EOS # 0.3 10^3/uL (0.0-0.5); EOS % 4.1 % (0.0-3.0); HEMATOCRIT 36.2 % (36.0-47.0); HEMOGLOBIN 11.4 g/dl (12.0-15.5); LYMPH # 1.4 10^3/uL (1.5-5.0); LYMPH % 19.3 % (24.0-44.0); MEAN CORPUSCULAR HEMOGLOBIN 29.4 pg (27.0-33.0); MEAN CORPUSCULAR HGB CONC 31.5 g/dl (32.0-36.5); MEAN CORPUSCULAR VOLUME 93.3 fl (80.0-96.0); MONO # 0.6 10^3/uL (0.0-0.8); MONO % 8.5 % (2.0-8.0); NEUTROPHILS # 4.7 10^3/uL (1.5-8.5); NEUTROPHILS % 66.1 % (36.0-66.0); PLATELET COUNT, AUTOMATED 216 10^3/uL (150-450); RED BLOOD COUNT 3.88 10^6/uL (4.00-5.40); WHITE BLOOD COUNT 7.2 10^3/uL (4.0-10.0)
[2024-09-26 18:49] LABS: ERYTHROCYTE SEDIMENTATION RATE 37 mm/hr (0-30)
[2024-09-26 19:01] LABS: C REACTIVE PROTEIN QUANTITATIV 0.61 MG/DL (<1.0)
[2024-09-26 19:02] LABS: CALCIUM LEVEL 9.1 MG/DL (8.3-10.6); CREATININE FOR GFR 1.61 MG/DL (0.55-1.30); GLOMERULAR FILTRATION RATE 33.4 (>39); POTASSIUM SERUM 3.3 MMOL/L (3.5-5.1)
== END ==
PROVIDERS: ATTEND Physician Assistant
DX: L03.115 Cellulitis of right lower limb (principal)

== ENCOUNTER → 2024-10-03 | Outpatient (REF) | payer MEDICARE, MEDICAID ==
[2024-10-03 08:56] LABS: HEMATOCRIT 31.6 % (36.0-47.0); HEMOGLOBIN 9.7 g/dl (12.0-15.5); MEAN CORPUSCULAR HEMOGLOBIN 28.6 pg (27.0-33.0); MEAN CORPUSCULAR HGB CONC 30.7 g/dl (32.0-36.5); MEAN CORPUSCULAR VOLUME 93.2 fl (80.0-96.0); PLATELET COUNT, AUTOMATED 181 10^3/uL (150-450); RED BLOOD COUNT 3.39 10^6/uL (4.00-5.40); WHITE BLOOD COUNT 6.3 10^3/uL (4.0-10.0)
[2024-10-03 09:24] LABS: CALCIUM LEVEL 9.1 MG/DL (8.3-10.6); CREATININE FOR GFR 3.51 MG/DL (0.55-1.30); GLOMERULAR FILTRATION RATE 13.1 (>39); POTASSIUM SERUM 3.9 MMOL/L (3.5-5.1)
== END ==
PROVIDERS: ATTEND Physician Assistant
DX: D64.9 Anemia, unspecified (principal)

== ENCOUNTER 2024-10-15 09:29 | Emergency (ER) | payer MEDICARE, MEDICAID ==
[~2024-10-15 09:29] MED LIST changes: -BYDU2INJ7 SC; +EXEN2AUT SC; -GLUC1KIT IM; +GLUC1VIA14 IM
[2024-10-15] MEDS: ACETAMINOPHEN 325 MG TAB PO ONE (11:10)
[2024-10-15 14:34] VITALS: BP 142/70; TEMP 96.8; O2SAT 97
== END 2024-10-15 14:37 | disposition home or self-care (01) ==
LOC: M ED 09:29 → EDBD 09:29 → M ED 14:37
DX: S70.02XA Contusion of left hip, initial encounter (principal); I12.0 Hypertensive chronic kidney disease with stage 5 chronic kidney disease or end stage renal disease; Y92.019 Unspecified place in single-family (private) house as the place of occurrence of the external cause; Y93.9 Activity, unspecified; Y99.9 Unspecified external cause status; W19.XXXA Unspecified fall, initial encounter; I48.91 Unspecified atrial fibrillation; E11.9 Type 2 diabetes mellitus without complications; Z88.0 Allergy status to penicillin; Z79.1 Long term (current) use of non-steroidal anti-inflammatories (NSAID); Z79.01 Long term (current) use of anticoagulants; Z79.899 Other long term (current) drug therapy

== ENCOUNTER → 2025-01-02 | Outpatient (REF) | payer MEDICARE, MEDICAID | PROVIDERS: ATTEND Physician Assistant | DX: D64.9 Anemia, unspecified (principal) ==

== ENCOUNTER → 2025-01-04 | Outpatient (REF) | payer MEDICARE, MEDICAID ==
[2025-01-04 07:57] LABS: PLATELET COUNT, AUTOMATED 166 10^3/uL (150-450)
[2025-01-04 08:26] LABS: CALCIUM LEVEL 8.9 MG/DL (8.3-10.6); CARBON DIOXIDE LEVEL 32.0 MMOL/L (20-31); CHLORIDE LEVEL 100.0 MMOL/L (98-107); CREATININE FOR GFR 3.08 MG/DL (0.55-1.30); GLOMERULAR FILTRATION RATE 15.3 (>39); POTASSIUM SERUM 3.9 MMOL/L (3.5-5.1); SODIUM LEVEL 145.0 MMOL/L (136-145)
[2025-01-04 08:27] LABS: VITAMIN B12 LEVEL 501.0 PG/ML (211-911)
== END ==
PROVIDERS: ATTEND Physician Assistant
DX: D64.9 Anemia, unspecified (principal)

== ENCOUNTER → 2025-02-15 | Outpatient (REF) | payer MEDICARE, MEDICAID ==
[~2025-02-15] MED LIST changes: +ACET-1515 PO; -ACET650T15 PO
== END ==
PROVIDERS: ATTEND Physician Assistant
DX: M25.511 Pain in right shoulder (principal)

== ENCOUNTER → 2025-03-26 | Outpatient (CLI) | payer MEDICARE, MEDICAID | LOC: M RAD 12:30 | PROVIDERS: ATTEND Physician Assistant | DX: I73.9 Peripheral vascular disease, unspecified (principal) ==

== ENCOUNTER → 2025-04-03 | Outpatient (REF) | payer MEDICARE, MEDICAID | PROVIDERS: ATTEND Physician Assistant | DX: D64.9 Anemia, unspecified (principal) ==

== ENCOUNTER → 2025-04-05 | Outpatient (REF) | payer MEDICARE, MEDICAID ==
[2025-04-05 17:51] LABS: PLATELET COUNT, AUTOMATED 179 10^3/uL (150-450)
[2025-04-05 18:16] LABS: CALCIUM LEVEL 8.9 MG/DL (8.3-10.6); CARBON DIOXIDE LEVEL 32.0 MMOL/L (20-31); CHLORIDE LEVEL 96.0 MMOL/L (98-107); CREATININE FOR GFR 1.6 MG/DL (0.55-1.30); GLOMERULAR FILTRATION RATE 33.6 (>39); POTASSIUM SERUM 4.0 MMOL/L (3.5-5.1); SODIUM LEVEL 139.0 MMOL/L (136-145)
== END ==
PROVIDERS: ATTEND Physician Assistant
DX: D64.9 Anemia, unspecified (principal)

== ENCOUNTER → 2025-04-15 | Outpatient (REF) | payer MEDICARE, MEDICAID | PROVIDERS: ATTEND Internal Medicine | DX: R05.9 Cough, unspecified (principal); Z53.8 Procedure and treatment not carried out for other reasons ==

== ENCOUNTER → 2025-04-15 | Outpatient (REF) | payer MEDICARE, MEDICAID | PROVIDERS: ATTEND Physician Assistant | DX: R05.9 Cough, unspecified (principal) ==

== ENCOUNTER → 2025-04-16 | Outpatient (REF) | payer MEDICARE, MEDICAID | PROVIDERS: ATTEND Internal Medicine | DX: R91.8 Other nonspecific abnormal finding of lung field (principal) ==

== ENCOUNTER → 2025-05-13 | Outpatient (CLI) | payer MEDICARE, MEDICAID ==
[~2025-05-13] MED LIST changes: +MIDAZOLAM INJ 2 MG/2 ML VIAL IV PRN
[2025-05-13 12:23] VITALS: TEMP 98
[2025-05-13] MEDS: NS (Normal Saline) 0.9% 1,000 ML IV SCH (12:25)
[2025-05-13] MEDS: ceFAZolin SODIUM 2 GM in DEXTROSE 5% (D5W) ADV/MINI-BAG 50 ML IV ONE (12:47)
[2025-05-13] MEDS: ISOVUE-300 61% 100 ML VIAL IV SCH (13:05)
[2025-05-13 13:35] VITALS: BP 167/74; O2SAT 99
[2025-05-13] MEDS: HEPARIN 1,000 UNITS/ML 10 ML VIAL (FOR RADIOLOGY & DIALYSIS ONLY) IV PRN (13:42)
[2025-05-13] MEDS: LIDOCAINE 1% MDV 20 ML VIAL SC SCH (13:42)
== END ==
LOC: M IRPRO 12:04
PROVIDERS: ATTEND Internal Medicine Nephrology
DX: C18.9 Malignant neoplasm of colon, unspecified (principal)
CPT/HCPCS: 36581; J0688

== ENCOUNTER → 2025-05-23 | Outpatient (CLI) | payer MEDICARE, MEDICAID ==
[~2025-05-23] MED LIST changes: -MIDAZOLAM INJ 2 MG/2 ML VIAL IV PRN
== END ==
LOC: M RAD 12:15
PROVIDERS: ATTEND Radiology Diagnostic Radiology
DX: Z01.818 Encounter for other preprocedural examination (principal); R09.89 Other specified symptoms and signs involving the circulatory and respiratory systems; T82.9XXA Unspecified complication of cardiac and vascular prosthetic device, implant and graft, initial encounter; Z99.2 Dependence on renal dialysis; E11.22 Type 2 diabetes mellitus with diabetic chronic kidney disease; I12.0 Hypertensive chronic kidney disease with stage 5 chronic kidney disease or end stage renal disease; D63.1 Anemia in chronic kidney disease

== ENCOUNTER → 2025-05-30 | Outpatient (CLI) | payer MEDICARE, MEDICAID ==
[2025-05-30 07:25] VITALS: TEMP 98.9
[2025-05-30] MEDS: NS 250 ML IV SCH (08:14)
[2025-05-30] MEDS: MIDAZOLAM INJ 2 MG/2 ML VIAL IV PRN (08:18)
[2025-05-30] MEDS: HEPARIN 1,000 UNITS/ML 10 ML VIAL (FOR RADIOLOGY & DIALYSIS ONLY) IV PRN (08:38)
[2025-05-30] MEDS: ISOVUE-300 61% 100 ML VIAL IV SCH (08:57)
[2025-05-30] MEDS: LIDOCAINE 1% MDV 20 ML VIAL SC SCH (08:58)
[2025-05-30 10:30] VITALS: BP 142/64; O2SAT 96
== END ==
LOC: M IRPRO 06:58
PROVIDERS: ATTEND Internal Medicine Nephrology
DX: T82.858A Stenosis of other vascular prosthetic devices, implants and grafts, initial encounter (principal)
CPT/HCPCS: 36905; 99152; 99153; J2250; J3010; Q9967

== ENCOUNTER → 2025-06-14 | Outpatient (REF) | payer MEDICARE, MEDICAID | PROVIDERS: ATTEND Physician Assistant | DX: R05.9 Cough, unspecified (principal) ==